=== PATIENT | male | born 1950 | race Caucasian/White ===

== ENCOUNTER → 2017-08-15 | Outpatient (POV) | payer MEDICARE, BC, SELFPAY | PROVIDERS: PCP Family Medicine; Referring Provider Internal Medicine; Visit Provider Specialist | DX: G72.81 Critical illness myopathy (principal) | CPT/HCPCS: 95886; 95911 ==

== ENCOUNTER → 2017-10-21 | Outpatient (CLI) | payer MEDICARE, BC, SELFPAY | PROVIDERS: Visit Provider Internal Medicine | DX: R91.1 Solitary pulmonary nodule (principal) | CPT/HCPCS: 71250 ==

== ENCOUNTER → 2018-01-02 12:33 | Outpatient (POV) | payer MEDICARE, BC, SELFPAY ==
[2018-01-02 13:32] LABS: Basophils % 0.8 % (0.1-2.0); Eosinophils # 0.1 K/mm3 (0.0-0.4); Eosinophils % 1.6 % (0.1-12.0); Hematocrit 46.6 % (42.0-52.0); Hemoglobin 16.4 g/dL (14.1-18.0); Lymphocytes # 0.8 K/mm3 (0.7-4.5); Lymphocytes % 16.3 K/mm3 (10-50); Mean Corpuscular HGB Conc 35.2 g/dL (31.8-35.4); Mean Corpuscular Hemoglobin 33.2 pg (27.0-31.2); Mean Corpuscular Volume 94.3 fl (80-94); Monocytes # 0.4 K/mm3 (0.1-1.0); Monocytes % 8.4 % (1.7-9.3); Neutrophils # 3.5 K/mm3 (1.8-7.8); Neutrophils % 72.9 % (37.0-80.0); Platelet Count 176 K/mm3 (142-424); Red Blood Count 4.94 M/mm3 (4.60-6.20); Red Cell Distribution Width 14.3 % (11.5-17.5); White Blood Count 4.9 K/mm3 (4.8-10.8)
[2018-01-02 13:42] LABS: Alanine Aminotransferase 44 U/L (12-78); Albumin Level 4.6 gm/dL (3.4-5.0); Albumin/Globulin Ratio 1.3 (1.1-1.8); Alkaline Phosphatase 81 U/L (46-116); Anion Gap 9.2 mEq/L (5-15); Aspartate Amino Transferase 21 U/L (15-37); Bilirubin,Total 0.8 mg/dL (0.2-1.0); Blood Urea Nitrogen 23 mg/dL (7-18); Calcium 9.2 mg/dL (8.5-10.1); Carbon Dioxide 28 mmol/L (21.0-32.0); Chloride 97 mmol/L (98-107); Creatinine,Serum 1.62 mg/dL (0.70-1.30); Estimated Glomerular Filt Rate 43 ml/min (>60); GFR (African American) 52 ML/MIN (>60); Globulin 3.6 gm/dl (1.3-3.2); Glucose 110 mg/dL (74-106); Potassium 4.2 mmoL/L (3.5-5.1); Sodium 130 mmol/L (136-145); Total Protein,Serum 8.2 gm/dL (6.4-8.2)
[2018-01-02 14:51] LABS: Total Protein,Urine Random < 6.0 mg/dL (0.0-11.9)
[2018-01-04 15:22] LABS: Albumin, U 32.7 % (.); Alpha-1-Globulin, U 6.5 % (.); Alpha-2-Globulin, U 16.9 % (.); Beta Globulin, U 18.3 % (.); Gamma Globulin, U 25.7 % (.); Protein,Total,Urine 5.9 mg/dL (Not Estab.)
[2018-01-05 12:00] LABS: M-Spike, % Comment: % (Not Observed)
== END ==
PROVIDERS: PCP Family Medicine; Visit Provider Internal Medicine
DX: D47.2 Monoclonal gammopathy (principal)
CPT/HCPCS: 36415; 80053; 84155; 84156; 85025; 88184; 88185

== ENCOUNTER → 2018-01-09 07:30 | Outpatient (CLI) | payer MEDICARE, BC, SELFPAY ==
[2018-01-10 15:21] LABS: Albumin, U 36.1 % (.); Alpha-1-Globulin, U 8.5 % (.); Alpha-2-Globulin, U 19.2 % (.); Beta Globulin, U 23.5 % (.); Gamma Globulin, U 12.7 % (.); M-Spike, % Not Observed % (Not Observed); Prot,24hr calculated <124 mg/24 hr (30-150)
[2018-01-13 14:50] LABS: Protein,Total,Urine <4.0 mg/dL (Not Estab.)
== END ==
PROVIDERS: Visit Provider Internal Medicine
DX: D47.2 Monoclonal gammopathy (principal)
CPT/HCPCS: 84166

== ENCOUNTER → 2018-01-11 08:00 | Outpatient (CLI) | payer MEDICARE, BC, SELFPAY ==
--- NOTE | 2018-01-11 | XR_ITS ---
XR hip LT 2-3V w/pelvis HISTORY: ITS.REASON: HOT SPOT ON BONE SCAN LEFT HIP ORDERING PHYSICIAN: Tim Solorio MD PATIENT AGE: 67 years COMPARISON: 04/24/2014 FINDINGS: There are mild osteoarthritic changes of the left hip. There are some hypertrophic changes of the greater trochanter with a lucency noted at the subcortical region of the greater trochanter. This is of questioned clinical significance. There is some increased activity at this region on bone scan. No fracture or dislocation. IMPRESSION: Decreased density involving the cortical region of the superior aspect of the greater trochanter corresponding to increased activity on the bone scan. Differential diagnosis would include underlying inflammatory or infectious process. Possible trochanteric bursitis. Neoplasm cannot completely be excluded. MRI may be of further value if symptoms warrant. Follow-up is suggested
--- NOTE | 2018-01-11 08:03 | CA_ITS ---
CA echo doppler complete PROCEDURE: INDICATIONS FOR THE TEST: Chest pain COPD Heart Murmur Tobacco Smoking PalpitationsX Fatigue Syncope Edema HypertensionXDiabetes Mellitus Rheumatic Fever SOB SANDHU ObesityXHyperlipidemiaX Family History HD Additional History CAD,CABG MULTIPLE MYELOMA PATIENT INFORMATION HEIGHT: 72 WEIGHT:275 GENDER: Male B/P:128/79 2-D/M-MODE INTERPRETATION: 2-D MEASUREMENTS OBSERVED VALUES IN CMS Right Ventricular Dimension (RVDd) 3.1 Interventricular Septum (Thickness)(IVsd) 1.3 Left Ventricular Internal Dimensions(LVIDd) 5.1 Left Ventricular Posterior Wall (Thickness)(LVPWd) 1.2 Aortic Root 4.0 Aortic Cusp Separation 1.3 Left Atrial Dimensions (LAD) 4.2 2D 1. Left atrium is mildly enlarged, left ventricle is normal size, visually estimated ejection fraction of 50% with moderate hypokinesis involving the basal septum and inferobasal wall. 2. The right atrium and right ventricle are relatively normal size and function 3. The aortic valve is thickened and calcified leaflet continue to display mobility. 4. The mitral and tricuspid valve leaflets are minimally thickened. 5. The pulmonic valve is poorly visualized. 6. No significant pericardial effusion noted. DOPPLER INTERROGATION: Doppler interrogation of the aortic, mitral and tricuspid valve is presence of mild aortic, mild mitral and tricuspid regurgitation, tricuspid regurgitant jet velocity is insufficient for calculation of the right ventricular systolic pressure, grade 1 diastolic dysfunction seen with tissue Doppler evidence of raised left atrial pressure. CONCLUSION: 1. Mildly enlarged left atrium, normal left ventricular size, mild concentric left ventricular hypertrophy, visually estimated ejection fraction 50% with segmental wall motion abnormality described above, grade 1 diastolic dysfunction seen with tissue Doppler evidence of raised left atrial pressure. 2. Thickened and calcified aortic valve without aortic stenosis, there is mild aortic insufficiency. 3. Mild mitral and tricuspid regurgitation 4. No significant pericardial effusion noted.
--- NOTE | 2018-01-11 08:35 | NM_ITS ---
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 There is slight increased activity involving the greater trochanter of the left hip. Slight increased activity involves both pedicles at T12 is of questioned clinical significance and probably not significant. No other significant anomalies are evident. IMPRESSION: 1. Slight increased activity involves the greater trochanter of the left hip. Radiographs show some decrease subcortical density at this area. Underlying inflammatory infectious or even neoplastic process is a consideration. Please correlate as to whether the patient has pain in this region or not. Follow-up radiograph may confirm stability. 2. Otherwise essentially negative total body bone scan.
== END ==
PROVIDERS: Family Provider Family Medicine; PCP Family Medicine; Visit Provider Internal Medicine
DX: D47.2 Monoclonal gammopathy (principal); R06.09 Other forms of dyspnea
CPT/HCPCS: 73502; 78306; 93306

== ENCOUNTER → 2018-03-16 07:16 | Outpatient (CLI) | payer MEDICARE, BC, SELFPAY ==
[2018-03-16 11:12] LABS: Basophils # 0.1 K/mm3 (0-0.2); Basophils % 1.3 % (0.1-2.0); Eosinophils # 0.1 K/mm3 (0.0-0.4); Eosinophils % 1.5 % (0.1-12.0); Hematocrit 43.5 % (42.0-52.0); Hemoglobin 15.5 g/dL (14.1-18.0); Lymphocytes # 0.6 K/mm3 (0.7-4.5); Lymphocytes % 16.5 K/mm3 (10-50); Mean Corpuscular HGB Conc 35.6 g/dL (31.8-35.4); Mean Corpuscular Hemoglobin 33.4 pg (27.0-31.2); Mean Corpuscular Volume 93.8 fl (80-94); Mean Platelet Volume 6.8 fl (7.4-10.4); Monocytes # 0.4 K/mm3 (0.1-1.0); Monocytes % 10.9 % (1.7-9.3); Neutrophils # 2.6 K/mm3 (1.8-7.8); Neutrophils % 69.8 % (37.0-80.0); Platelet Count 183 K/mm3 (142-424); Red Blood Count 4.63 M/mm3 (4.60-6.20); Red Cell Distribution Width 13.8 % (11.5-17.5); White Blood Count 3.7 K/mm3 (4.8-10.8)
[2018-03-16 11:27] LABS: Alanine Aminotransferase 42 U/L (12-78); Albumin Level 4.5 gm/dL (3.4-5.0); Albumin/Globulin Ratio 1.4 (1.1-1.8); Alkaline Phosphatase 77 U/L (46-116); Anion Gap 12.4 mEq/L (5-15); Aspartate Amino Transferase 36 U/L (15-37); Bilirubin,Total 0.9 mg/dL (0.2-1.0); Blood Urea Nitrogen 22 mg/dL (7-18); Calcium 9.5 mg/dL (8.5-10.1); Carbon Dioxide 28 mmol/L (21.0-32.0); Chloride 95 mmol/L (98-107); Creatinine,Serum 1.44 mg/dL (0.70-1.30); Estimated Glomerular Filt Rate 49 ml/min (>60); GFR (African American) 59 ML/MIN (>60); Globulin 3.2 gm/dl (1.3-3.2); Glucose 144 mg/dL (74-106); Potassium 4.4 mmoL/L (3.5-5.1); Sodium 131 mmol/L (136-145); Total Protein,Serum 7.7 gm/dL (6.4-8.2)
[2018-03-17 08:34] LABS: Immunoglobulin A, Qn 82 mg/dL (61-437); Immunoglobulin G, Qn 1346 mg/dL (700-1600)
[2018-03-17 13:01] LABS: Immunoglobulin M, Qn 19 mg/dL (20-172)
[2018-03-17 16:25] LABS: Albumin 4.3 g/dL (2.9-4.4); Alpha-1-Globulin 0.2 g/dL (0.0-0.4); Alpha-2-Globulin 0.7 g/dL (0.4-1.0); Gamma Globulin 1.5 g/dL (0.4-1.8); Protein, Total 7.5 g/dL (6.0-8.5)
== END ==
PROVIDERS: Visit Provider Internal Medicine
DX: D47.2 Monoclonal gammopathy (principal)
CPT/HCPCS: 36415; 80053; 82784; 84165; 85025

== ENCOUNTER → 2018-03-24 07:50 | Outpatient (CLI) | payer MEDICARE, BC, SELFPAY ==
[2018-03-24 08:23] LABS: Basophils % 0.8 % (0.1-2.0); Eosinophils # 0.1 K/mm3 (0.0-0.4); Eosinophils % 2.5 % (0.1-12.0); Hematocrit 46.2 % (42.0-52.0); Hemoglobin 15.8 g/dL (14.1-18.0); Lymphocytes # 0.6 K/mm3 (0.7-4.5); Lymphocytes % 16.3 K/mm3 (10-50); Mean Corpuscular HGB Conc 34.2 g/dL (31.8-35.4); Mean Corpuscular Hemoglobin 32.3 pg (27.0-31.2); Mean Corpuscular Volume 94.4 fl (80-94); Mean Platelet Volume 7.3 fl (7.4-10.4); Monocytes # 0.4 K/mm3 (0.1-1.0); Monocytes % 9.8 % (1.7-9.3); Neutrophils # 2.5 K/mm3 (1.8-7.8); Neutrophils % 70.6 % (37.0-80.0); Platelet Count 164 K/mm3 (142-424); Red Blood Count 4.89 M/mm3 (4.60-6.20); Red Cell Distribution Width 14.1 % (11.5-17.5); White Blood Count 3.6 K/mm3 (4.8-10.8)
[2018-03-24 09:54] LABS: Alanine Aminotransferase 46 U/L (12-78); Albumin Level 4.8 gm/dL (3.4-5.0); Albumin/Globulin Ratio 1.4 (1.1-1.8); Alkaline Phosphatase 85 U/L (46-116); Anion Gap 10.4 mEq/L (5-15); Aspartate Amino Transferase 28 U/L (15-37); Bilirubin,Total 0.9 mg/dL (0.2-1.0); Blood Urea Nitrogen 16 mg/dL (7-18); Calcium 9.8 mg/dL (8.5-10.1); Carbon Dioxide 30 mmol/L (21.0-32.0); Chloride 95 mmol/L (98-107); Estimated Glomerular Filt Rate 55 ml/min (>60); GFR (African American) 67 ML/MIN (>60); Globulin 3.5 gm/dl (1.3-3.2); Glucose 135 mg/dL (74-106); Potassium 4.4 mmoL/L (3.5-5.1); Sodium 131 mmol/L (136-145); Total Protein,Serum 8.3 gm/dL (6.4-8.2)
[2018-03-25 07:15] LABS: Iron 105 ug/dL (38-169); UIBC 172 ug/dL (111-343)
[2018-03-25 08:22] LABS: Immunoglobulin A, Qn 93 mg/dL (61-437); Immunoglobulin G, Qn 1305 mg/dL (700-1600)
[2018-03-25 19:41] LABS: Immunoglobulin M, Qn 19 mg/dL (20-172); Iron Saturation 38 % (15-55)
== END ==
PROVIDERS: Visit Provider Internal Medicine
DX: C90.00 Multiple myeloma not having achieved remission (principal)
CPT/HCPCS: 36415; 80053; 82784; 83550; 85025

== ENCOUNTER → 2018-03-27 06:58 | Outpatient (CLI) | payer MEDICARE, BC, SELFPAY | PROVIDERS: Visit Provider Internal Medicine | DX: C90.00 Multiple myeloma not having achieved remission (principal) | CPT/HCPCS: 84156 ==

== ENCOUNTER → 2018-10-05 07:12 | Outpatient (CLI) | payer MEDICARE, BC, SELFPAY ==
[2018-10-05 08:00] LABS: Basophils # 0.1 K/mm3 (0-0.2); Basophils % 1.5 % (0.1-2.0); Eosinophils # 0.1 K/mm3 (0.0-0.4); Eosinophils % 2.8 % (0.1-12.0); Hematocrit 44.7 % (42.0-52.0); Hemoglobin 15.4 g/dL (14.1-18.0); Lymphocytes # 0.6 K/mm3 (0.7-4.5); Lymphocytes % 19.1 % (10-50); Mean Corpuscular HGB Conc 34.5 g/dL (31.8-35.4); Mean Corpuscular Hemoglobin 33.6 pg (27.0-31.2); Mean Corpuscular Volume 97.5 fl (80-94); Mean Platelet Volume 6.9 fl (7.4-10.4); Monocytes # 0.3 K/mm3 (0.1-1.0); Monocytes % 8.6 % (1.7-9.3); Neutrophils # 2.1 K/mm3 (1.8-7.8); Platelet Count 164 K/mm3 (142-424); Red Blood Count 4.59 M/mm3 (4.60-6.20); Red Cell Distribution Width 14.8 % (11.5-17.5); White Blood Count 3.2 K/mm3 (4.8-10.8)
[2018-10-05 09:01] LABS: Anion Gap 10.2 mEq/L (5-15); Blood Urea Nitrogen 15 mg/dL (7-18); Calcium 9.2 mg/dL (8.5-10.1); Carbon Dioxide 30 mmol/L (21.0-32.0); Chloride 97 mmol/L (98-107); Creatinine,Serum 1.47 mg/dL (0.70-1.30); Estimated Glomerular Filt Rate 48 ml/min (>60); GFR (African American) 58 ML/MIN (>60); Glucose 144 mg/dL (74-106); Potassium 4.2 mmoL/L (3.5-5.1); Sodium 133 mmol/L (136-145)
[2018-10-06 15:17] LABS: Albumin 4.2 g/dL (2.9-4.4); Alpha-1-Globulin 0.2 g/dL (0.0-0.4); Alpha-2-Globulin 0.6 g/dL (0.4-1.0); Gamma Globulin 1.6 g/dL (0.4-1.8); Protein, Total 7.5 g/dL (6.0-8.5)
[2018-10-06 16:40] LABS: Immunoglobulin A, Qn 78 mg/dL (61-437); Immunoglobulin G, Qn 1461 mg/dL (700-1600)
[2018-10-06 17:11] LABS: Immunoglobulin M, Qn 21 mg/dL (20-172)
== END ==
PROVIDERS: PCP Family Medicine; Visit Provider Nurse Practitioner
DX: D47.2 Monoclonal gammopathy (principal)
CPT/HCPCS: 36415; 80048; 82784; 84155; 84165; 85025; 86334

== ENCOUNTER → 2018-12-12 15:47 | Outpatient (CLI) | payer MEDICARE, BC, SELFPAY ==
[2018-12-12 16:38] LABS: Eosinophils # 0.1 K/mm3 (0.0-0.4); Eosinophils % 1.7 % (0.1-12.0); Hematocrit 41.9 % (42.0-52.0); Hemoglobin 14.5 g/dL (14.1-18.0); Lymphocytes # 0.8 K/mm3 (0.7-4.5); Lymphocytes % 17.4 % (10-50); Mean Corpuscular HGB Conc 34.6 g/dL (31.8-35.4); Mean Corpuscular Hemoglobin 32.9 pg (27.0-31.2); Mean Corpuscular Volume 95.3 fl (80-94); Mean Platelet Volume 6.3 fl (7.4-10.4); Monocytes # 0.4 K/mm3 (0.1-1.0); Monocytes % 8.7 % (1.7-9.3); Neutrophils # 3.3 K/mm3 (1.8-7.8); Neutrophils % 71.3 % (37.0-80.0); Platelet Count 188 K/mm3 (142-424); Red Cell Distribution Width 14.4 % (11.5-17.5); White Blood Count 4.6 K/mm3 (4.8-10.8)
[2018-12-12 17:55] LABS: Erythrocyte Sedimentation Rate 8 mm/hr (0-20)
[2018-12-12 18:18] LABS: Alanine Aminotransferase 36 U/L (12-78); Albumin Level 4.4 gm/dL (3.4-5.0); Alkaline Phosphatase 76 U/L (46-116); Anion Gap 13.2 mEq/L (5-15); Aspartate Amino Transferase 26 U/L (15-37); Bilirubin,Direct 0.2 mg/dL (0.0-0.2); Bilirubin,Indirect 0.5 mg/dL (0.0-0.9); Bilirubin,Total 0.7 mg/dL (0.2-1.0); Blood Urea Nitrogen 17 mg/dL (7-18); Calcium 9.4 mg/dL (8.5-10.1); Carbon Dioxide 30 mmol/L (21.0-32.0); Chloride 94 mmol/L (98-107); Creatinine,Serum 1.82 mg/dL (0.70-1.30); Estimated Glomerular Filt Rate 37 ml/min (>60); Free T4 (Free Thyroxine) 0.89 ng/dl (0.76-1.46); GFR (African American) 45 ML/MIN (>60); Glucose 109 mg/dL (74-106); Potassium 4.2 mmoL/L (3.5-5.1); Sodium 133 mmol/L (136-145); Thyroid Stimulating Hormone 3.47 uIU/ml (0.358-3.740); Total Protein,Serum 7.8 gm/dL (6.4-8.2)
[2018-12-12 20:54] LABS: C-Reactive Protein < 0.2 mg/L (0.0-0.9)
== END ==
PROVIDERS: Visit Provider Internal Medicine
DX: L60.8 Other nail disorders (principal); L81.9 Disorder of pigmentation, unspecified; L98.9 Disorder of the skin and subcutaneous tissue, unspecified; E66.9 Obesity, unspecified; G47.33 Obstructive sleep apnea (adult) (pediatric); I11.9 Hypertensive heart disease without heart failure; I25.10 Atherosclerotic heart disease of native coronary artery without angina pectoris; R06.09 Other forms of dyspnea; R40.0 Somnolence; R94.31 Abnormal electrocardiogram [ECG] [EKG]; E78.49 Other hyperlipidemia
CPT/HCPCS: 36415; 80048; 80076; 84439; 84443; 85025; 85651; 86140

== ENCOUNTER → 2018-12-19 07:38 | Outpatient (CLI) | payer MEDICARE, BC, SELFPAY ==
--- NOTE | 2018-12-19 07:42 | US_ITS ---
US abdomen complete HISTORY: Discolored toes. ITS.REASON: r/o AAA ORDERING PHYSICIAN: Shawn Yates MD PATIENT AGE: 68 years COMPARISON: CT chest July 2017 & Showed normal caliber of aorta down to the level of the kidneys FINDINGS: LIVER:No focal liver lesions demonstrated. Homogeneous echogenicity. No intrahepatic biliary ductal dilatation evident. Portal vein satisfactory size and direction flow. GALLBLADDER:. Surgically absent. Common duct normal diameter with No biliary ductal dilatation .. PANCREAS:Unremarkable. No obvious mass or abnormal fluid collection. No ductal dilatatio KIDNEYS appear normal size bilaterally. No hydronephrosis nor mass. Cortex well-maintained.: RIGHT kidney 10.65 CM length with LEFT kidney 10.6 cm length;. . AORTA: No significant aneurysm dilatation. Overall normal caliber. Proximally measuring 1.8 cm & tapers slightly as it continues distally. Suggestion mild diffuse atheromatous plaque throughout. . The origin of iliac arteries appear satisfactory no significant dilatation here. Mild atheromatous plaque appreciable SPLEEN:. Slight Enlarged. Nearly 16 cm in length No free fluid in the abdomen or pelvis IMPRESSION: No aneurysmal dilatation aorta. Images suggest mild atheromatous plaque throughout lower aorta Liver, pancreas unremarkable. Kidneys satisfactory. Splenomegaly. Cholecystectomy. No biliary ductal dilatation
== END ==
PROVIDERS: PCP Family Medicine; Visit Provider Internal Medicine
DX: E78.5 Hyperlipidemia, unspecified; I11.9 Hypertensive heart disease without heart failure; I25.10 Atherosclerotic heart disease of native coronary artery without angina pectoris; L81.9 Disorder of pigmentation, unspecified
CPT/HCPCS: 76700

== ENCOUNTER → 2018-12-29 07:48 | Outpatient (CLI) | payer MEDICARE, BC, SELFPAY ==
--- NOTE | 2018-12-29 | US_ITS ---
US Arterial Ankle Brachial Ind History: Claudication, rest pain, ORDERING PHYSICIAN: Juliet Gonzalez MD PATIENT AGE: 68 years TECHNIQUE: Segmental pressures obtained of both right and left leg. These are compared to brachial blood pressure to yield index at each level sampled including summary SARAY. The data sheets from the procedure are available in PACS FINDINGS Rest study only performed today No prior studies available for comparison. Blood pressures reported are in millimeters mercury. RIGHT LEG SARAY = noncompressible arteries in the ankle. RIGHT LEG TBI=0.98 Brachial BP: 106 Thigh BP: 143 Calf BP: 110 Ankle PT: >254 Ankle DP : Noncompressible Digit =118 LEFT LEG SARAY = 1.42 LEFT LEG TBI= 1.18 Brachial BPD: 120 Thigh BP: 125 Calf BP: 206 Ankle PT:170 Ankle DP: 182 Digit = 142 Pulses and waveforms: Diminished waveforms and ankle, normal pulses IMPRESSION: 1. Unable to calculate right SARAY due to noncompressible ankle arteries 2. Left ABIs slightly elevated at 1.4 consistent with hardening of the arteries. 3. TBI's are normal bilaterally
--- NOTE | 2018-12-29 07:50 | CT_ITS ---
CT head/brain wo con HISTORY: ITS.REASON: CHRONIC INTRACTABLE HEADACHE ORDERING PHYSICIAN: Juliet Gonzalez MD PATIENT AGE: 68 years COMPARISON: None TECHNIQUE: Axial images obtained without contrast. Brain and bone windows reviewed. All CT scans at the facility use one or more dose reduction, viz: automated exposure control, ma/kV adjustment per patient size (including targeted exams where dose is matched to indication, i.e. head), or iterative reconstruction technique. FINDINGS: No midline shift, mass effect, intracranial hemorrhage, hydrocephalus, or extra-axial fluid collection is evident. There is generalized atrophy. Focal cortical atrophy noted in the right right lower lobe medially and posteriorly. Mild prominence of the supravermian cistern on the right nonspecific. The calvarium has an unremarkable appearance. No mastoid effusion. Retention cysts are present in the floor both maxillary sinuses incompletely visualized. IMPRESSION: 1. No acute intracranial findings. 2. Generalized atrophy along with focal cortical atrophy in the right parietal region.
== END ==
PROVIDERS: PCP Emergency Medicine; Visit Provider Emergency Medicine
DX: I73.00 Raynaud's syndrome without gangrene (principal); R51 Headache
CPT/HCPCS: 70450; 93922

== ENCOUNTER → 2019-04-06 07:02 | Outpatient (CLI) | payer MEDICARE, BC, SELFPAY ==
[2019-04-06 07:30] LABS: Basophils % 1.5 % (0.1-2.0); Eosinophils # 0.1 K/mm3 (0.0-0.4); Eosinophils % 2.2 % (0.1-12.0); Hemoglobin 14.4 g/dL (14.1-18.0); Lymphocytes # 0.6 K/mm3 (0.7-4.5); Lymphocytes % 20.8 % (10-50); Mean Corpuscular HGB Conc 34.3 g/dL (31.8-35.4); Mean Corpuscular Hemoglobin 30.7 pg (27.0-31.2); Mean Corpuscular Volume 89.6 fl (80-94); Mean Platelet Volume 6.6 fl (7.4-10.4); Monocytes # 0.3 K/mm3 (0.1-1.0); Monocytes % 11.4 % (1.7-9.3); Neutrophils # 1.8 K/mm3 (1.8-7.8); Neutrophils % 64.1 % (37.0-80.0); Platelet Count 159 K/mm3 (142-424); Red Blood Count 4.69 M/mm3 (4.60-6.20); Red Cell Distribution Width 13.8 % (11.5-17.5); White Blood Count 2.8 K/mm3 (4.8-10.8)
[2019-04-06 12:37] LABS: Alanine Aminotransferase 38 U/L (12-78); Albumin/Globulin Ratio 1.2 (1.1-1.8); Alkaline Phosphatase 88 U/L (46-116); Anion Gap 12.4 mEq/L (5-15); Aspartate Amino Transferase 26 U/L (15-37); Bilirubin,Total 0.6 mg/dL (0.2-1.0); Blood Urea Nitrogen 16 mg/dL (7-18); Calcium 9.1 mg/dL (8.5-10.1); Carbon Dioxide 31 mmol/L (21.0-32.0); Chloride 96 mmol/L (98-107); Creatinine,Serum 1.33 mg/dL (0.70-1.30); Estimated Glomerular Filt Rate 53 ml/min (>60); GFR (African American) 65 ML/MIN (>60); Globulin 3.3 gm/dl (1.3-3.2); Glucose 129 mg/dL (74-106); Potassium 4.4 mmoL/L (3.5-5.1); Sodium 135 mmol/L (136-145); Total Protein,Serum 7.3 gm/dL (6.4-8.2)
[2019-04-06 13:03] LABS: Bilirubin,Direct 0.1 mg/dL (0.0-0.2); Chol/HDL Ratio 3.6 (1-3.5); Cholesterol 100 mg/dL (140-200); HDL Cholesterol 28 mg/dL (27-67); LDL Cholesterol 38 mg/dL (0-130); Triglycerides 170 mg/dL (30-200); VLDL Cholesterol 34 mg/dL (0-40)
[2019-04-07 21:06] LABS: Free Kappa Lt Chains 46.6 mg/L (3.3-19.4); Free Lambda Lt Chains 10.8 mg/L (5.7-26.3)
[2019-04-09 11:14] LABS: Immunoglobulin A, Qn 79 mg/dL (61-437); Immunoglobulin G, Qn 1590 mg/dL (700-1600)
[2019-04-09 13:22] LABS: Albumin 4.3 g/dL (2.9-4.4); Alpha-1-Globulin 0.3 g/dL (0.0-0.4); Alpha-2-Globulin 0.7 g/dL (0.4-1.0); Gamma Globulin 1.6 g/dL (0.4-1.8); Protein, Total 7.7 g/dL (6.0-8.5)
[2019-04-10 19:52] LABS: Immunoglobulin M, Qn 22 mg/dL (20-172)
== END ==
PROVIDERS: Urology; Visit Provider Internal Medicine Medical Oncology
DX: D47.2 Monoclonal gammopathy (principal); Z79.899 Other long term (current) drug therapy
CPT/HCPCS: 36415; 80053; 80061; 80076; 82248; 82784; 83883; 84155; 84165; 85025; 86334

== ENCOUNTER → 2019-05-21 11:05 | Outpatient (CLI) | payer MEDICARE, BC, SELFPAY ==
--- NOTE | 2019-05-21 11:09 | XR_ITS ---
XR hip LT 2-3V w/pelvis HISTORY: ITS.REASON: CARLOS HIP PAIN ORDERING PHYSICIAN: Juliet Justice MD PATIENT AGE: 68 years COMPARISON: None FINDINGS: Bone density, hip joint space and alignment appears normal. There is a minimal anterior medial subcapital spur. There is no acute fracture. There are pelvic phleboliths. IMPRESSION: No acute process. Minimal subcapital spur.
--- NOTE | 2019-05-21 11:09 | XR_ITS ---
XR hip RT 2-3V w/pelvis HISTORY: ITS.REASON: CARLOS HIP PAIN ORDERING PHYSICIAN: Juliet Justice MD PATIENT AGE: 68 years COMPARISON: None FINDINGS: Bone density, joint space and alignment appear normal. There is a very small anterior medial subcapital spurring. There is no acute fracture. There are some vascular calcified plaques. IMPRESSION: No acute process. Very small subcapital spur.
== END ==
PROVIDERS: PCP Family Medicine; Visit Provider Emergency Medicine
DX: M25.552 Pain in left hip (principal); M25.551 Pain in right hip
CPT/HCPCS: 73502

== ENCOUNTER → 2019-05-28 14:45 | Outpatient (CLI) | payer MEDICARE, BC, SELFPAY ==
--- NOTE | 2019-05-28 14:48 | MR_ITS ---
MR lumbar spine wo con, MR 3-d myelogram/MRCP HISTORY: Bilateral hip pain but LT hip is worse. LBP. Pain, numbness, and tingling down lt leg. [id number]. No trauma. ITS.REASON: PAIN IN RT AND LT HIP ORDERING PHYSICIAN: Juliet Justice MD PATIENT AGE: 68 years Comparison: None TECHNIQUE: Standard multiplanar multiecho sequences are performed without contrast. 3-D MIP and myelographic images are also rendered and reviewed FINDINGS: The spinal cord ends at the T12 level. T12-L1: Mild degenerative disc disease. Type I endplate changes anteriorly. L1-L2: Unremarkable. L2-L3: Unremarkable. L3-L4: Minimal bulging disc slightly eccentric toward the left along with facet and ligamentum flavum hypertrophy. There is mild left lateral recess and foraminal narrowing. L4-L5: There is minimal anterolisthesis of L4 of approximately 3 mm. There is concentric bulging disc along with moderate to severe facet and ligamentum flavum hypertrophy with resultant canal stenosis and severe bilateral lateral recess and foraminal narrowing. The foraminal narrowing is greater on the left. There is some bone marrow edema within the pedicle on the left at L5. L5-S1: Mild degenerative disc disease. IMPRESSION: 1. Mild multilevel lumbar spondylosis as detailed above. Please see above for detailed description at each level. 2. Mild anterolisthesis of L4 on L5 with bulging disc along with moderate to severe facet and ligamentum flavum hypertrophy with resultant canal stenosis and severe bilateral lateral recess and foraminal narrowing. The foraminal narrowing is greater on the left.
== END ==
PROVIDERS: PCP Family Medicine; Visit Provider Emergency Medicine
DX: M25.551 Pain in right hip (principal); M25.552 Pain in left hip
CPT/HCPCS: 72148; 76376

== ENCOUNTER → 2019-07-03 09:44 | Outpatient (CLI) | payer MEDICARE, BC, SELFPAY ==
[2019-07-03 10:11] LABS: Basophils % 0.9 % (0.1-2.0); Eosinophils # 0.1 K/mm3 (0.0-0.4); Eosinophils % 1.9 % (0.1-12.0); Hematocrit 42.1 % (42.0-52.0); Hemoglobin 14.5 g/dL (14.1-18.0); Lymphocytes # 0.7 K/mm3 (0.7-4.5); Lymphocytes % 25.6 % (10-50); Mean Corpuscular HGB Conc 34.4 g/dL (31.8-35.4); Mean Corpuscular Hemoglobin 33.1 pg (27.0-31.2); Mean Corpuscular Volume 96.1 fl (80-94); Mean Platelet Volume 7.2 fl (7.4-10.4); Monocytes # 0.4 K/mm3 (0.1-1.0); Monocytes % 13.3 % (1.7-9.3); Neutrophils # 1.6 K/mm3 (1.8-7.8); Neutrophils % 58.3 % (37.0-80.0); Platelet Count 162 K/mm3 (142-424); Red Blood Count 4.38 M/mm3 (4.60-6.20); Red Cell Distribution Width 14.4 % (11.5-17.5); White Blood Count 2.7 K/mm3 (4.8-10.8)
== END ==
PROVIDERS: Visit Provider Physician Assistant
DX: E66.9 Obesity, unspecified (principal); G47.33 Obstructive sleep apnea (adult) (pediatric); I11.9 Hypertensive heart disease without heart failure; I25.10 Atherosclerotic heart disease of native coronary artery without angina pectoris; I73.9 Peripheral vascular disease, unspecified; M79.604 Pain in right leg; M79.605 Pain in left leg; R06.09 Other forms of dyspnea; R40.0 Somnolence; R94.31 Abnormal electrocardiogram [ECG] [EKG]; E78.49 Other hyperlipidemia
CPT/HCPCS: 36415; 85025

== ENCOUNTER 2019-08-03 15:30 | Outpatient (RCR) | payer MEDICARE, BC, SELFPAY | END 2019-08-03 15:35 | disposition home or self-care (01) | LOC: PT 15:30 | PROVIDERS: PCP Family Medicine; Visit Provider Physician Assistant Surgical | DX: M51.36 Other intervertebral disc degeneration, lumbar region (principal) | CPT/HCPCS: 97010; 97014; 97035; 97110; 97163; G0283 ==

== ENCOUNTER → 2019-10-02 13:28 | Outpatient (CLI) | payer MEDICARE, BC, SELFPAY ==
[2019-10-02 14:14] LABS: Basophils % 0.9 % (0.1-2.0); Eosinophils # 0.1 K/mm3 (0.0-0.4); Eosinophils % 2.2 % (0.1-12.0); Hematocrit 41.6 % (42.0-52.0); Hemoglobin 14.4 g/dL (14.1-18.0); Lymphocytes # 0.6 K/mm3 (0.7-4.5); Lymphocytes % 20.4 % (10-50); Mean Corpuscular HGB Conc 34.7 g/dL (31.8-35.4); Mean Corpuscular Hemoglobin 33.5 pg (27.0-31.2); Mean Corpuscular Volume 96.6 fl (80-94); Mean Platelet Volume 6.9 fl (7.4-10.4); Monocytes # 0.4 K/mm3 (0.1-1.0); Monocytes % 12.3 % (1.7-9.3); Neutrophils % 64.1 % (37.0-80.0); Platelet Count 164 K/mm3 (142-424); Red Cell Distribution Width 13.8 % (11.5-17.5); White Blood Count 3.1 K/mm3 (4.8-10.8)
[2019-10-02 14:17] LABS: Alanine Aminotransferase 32 U/L (12-78); Albumin Level 4.1 gm/dL (3.4-5.0); Albumin/Globulin Ratio 1.2 (1.1-1.8); Alkaline Phosphatase 72 U/L (46-116); Anion Gap 10.1 mEq/L (5-15); Aspartate Amino Transferase 25 U/L (15-37); Bilirubin,Total 0.6 mg/dL (0.2-1.0); Blood Urea Nitrogen 20 mg/dL (7-18); Calcium 8.9 mg/dL (8.5-10.1); Carbon Dioxide 31 mmol/L (21.0-32.0); Chloride 98 mmol/L (98-107); Creatinine,Serum 1.57 mg/dL (0.70-1.30); Estimated Glomerular Filt Rate 44 ml/min (>60); GFR (African American) 53 ML/MIN (>60); Globulin 3.4 gm/dl (1.3-3.2); Glucose 160 mg/dL (74-106); Potassium 4.1 mmoL/L (3.5-5.1); Sodium 135 mmol/L (136-145); Total Protein,Serum 7.5 gm/dL (6.4-8.2)
[2019-10-03 14:10] LABS: Albumin 4.1 g/dL (2.9-4.4); Alpha-1-Globulin 0.2 g/dL (0.0-0.4); Alpha-2-Globulin 0.7 g/dL (0.4-1.0); Gamma Globulin 1.6 g/dL (0.4-1.8); Protein, Total 7.5 g/dL (6.0-8.5)
[2019-10-03 16:34] LABS: Free Kappa Lt Chains 36.1 mg/L (3.3-19.4); Free Lambda Lt Chains 9.9 mg/L (5.7-26.3)
== END ==
PROVIDERS: Visit Provider Internal Medicine Hematology & Oncology
DX: Z79.899 Other long term (current) drug therapy (principal)
CPT/HCPCS: 36415; 80053; 83883; 84155; 84165; 85025

== ENCOUNTER → 2019-10-12 10:44 | Outpatient (CLI) | payer MEDICARE, BC, SELFPAY ==
[2019-10-13 09:16] LABS: Immunoglobulin A, Qn 68 mg/dL (61-437); Immunoglobulin G, Qn 1492 mg/dL (700-1600)
[2019-10-13 10:19] LABS: Immunoglobulin M, Qn 18 mg/dL (20-172)
== END ==
PROVIDERS: Visit Provider Internal Medicine Medical Oncology
DX: D47.2 Monoclonal gammopathy (principal)
CPT/HCPCS: 36415; 82784

== ENCOUNTER → 2019-10-22 07:02 | Outpatient (CLI) | payer MEDICARE, BC, SELFPAY ==
[2019-10-22 09:14] LABS: Alanine Aminotransferase 26 U/L (12-78); Albumin Level 4.2 gm/dL (3.4-5.0); Albumin/Globulin Ratio 1.2 (1.1-1.8); Alkaline Phosphatase 88 U/L (46-116); Anion Gap 9.5 mEq/L (5-15); Aspartate Amino Transferase 18 U/L (15-37); Bilirubin,Total 0.8 mg/dL (0.2-1.0); Blood Urea Nitrogen 17 mg/dL (7-18); Calcium 8.9 mg/dL (8.5-10.1); Carbon Dioxide 33 mmol/L (21.0-32.0); Chloride 99 mmol/L (98-107); Chol/HDL Ratio 3.2 (1-3.5); Cholesterol 90 mg/dL (140-200); Creatinine,Serum 1.47 mg/dL (0.70-1.30); Estimated Glomerular Filt Rate 47 ml/min (>60); GFR (African American) 57 ML/MIN (>60); Globulin 3.4 gm/dl (1.3-3.2); Glucose 124 mg/dL (74-106); HDL Cholesterol 28 mg/dL (27-67); LDL Cholesterol 40 mg/dL (0-130); Potassium 4.5 mmoL/L (3.5-5.1); Prostate Specific Ag Screen 4.3 ng/mL (0.0-4.0); Sodium 137 mmol/L (136-145); Thyroid Stimulating Hormone 5.56 uIU/ml (0.358-3.740); Total Protein,Serum 7.6 gm/dL (6.4-8.2); Triglycerides 112 mg/dL (30-200); VLDL Cholesterol 22 mg/dL (0-40)
[2019-10-22 10:48] LABS: Hemoglobin A1C 5.5 % (0.0-7.0)
== END ==
PROVIDERS: Visit Provider Family Medicine
DX: E78.5 Hyperlipidemia, unspecified (principal); E03.9 Hypothyroidism, unspecified; G62.9 Polyneuropathy, unspecified; Z86.79 Personal history of other diseases of the circulatory system; Z12.5 Encounter for screening for malignant neoplasm of prostate; Z79.899 Other long term (current) drug therapy
CPT/HCPCS: 36415; 80053; 80061; 83036; 84443; G0103

== ENCOUNTER → 2020-01-01 14:25 | Outpatient (CLI) | payer MEDICARE, BC, SELFPAY ==
--- NOTE | 2020-01-01 14:29 | XR_ITS ---
PROCEDURE: XR FOOT WT BEARING RT 3V CLINICAL INDICATION: pain COMPARISON: No exams were available for comparison FINDINGS: No fracture or dislocation. No lytic or blastic change. There is normal mineralization. Prominent osteoarthritic changes are present at the 1st MTP joint with spurring. There is generalized vascular calcification. Osteophyte is present at the anterior distal tibia. Mild degenerative changes of the tarsal bones. Other findings:None. 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
--- NOTE | 2020-01-01 14:29 | XR_ITS ---
PROCEDURE: XR FOOT WT BEARING LT 3V CLINICAL INDICATION: pain COMPARISON: No exams were available for comparison FINDINGS: No fracture or dislocation. No lytic or blastic change. There is normal mineralization. Mild osteoarthritic changes of the 1st MTP joint. Pes planus. Osteoarthritis of the tail 0 tibial joint anteriorly. Osteoarthritis of the navicular cuneiform joint Other findings:None. IMPRESSION: Osteoarthritic change with mild pes planus Dictated by: Hai Orellana MD 01/01/2020 17:32 Electronically signed by Hai Orellana MD in [place] 01/01/2020 17:32
== END ==
PROVIDERS: PCP Family Medicine; Visit Provider Podiatrist
DX: M79.672 Pain in left foot (principal); M79.671 Pain in right foot
CPT/HCPCS: 73630

== ENCOUNTER → 2020-04-02 07:27 | Outpatient (CLI) | payer MEDICARE, BC, SELFPAY ==
[2020-04-02 07:55] LABS: Basophils # 0.1 K/mm3 (0-0.2); Basophils % 2.2 % (0.1-2.0); Eosinophils # 0.1 K/mm3 (0.0-0.4); Eosinophils % 2.4 % (0.1-12.0); Hematocrit 43.3 % (42.0-52.0); Hemoglobin 15.8 g/dL (14.1-18.0); Lymphocytes # 0.6 K/mm3 (0.7-4.5); Lymphocytes % 19.2 % (10-50); Mean Corpuscular HGB Conc 36.4 g/dL (31.8-35.4); Mean Corpuscular Hemoglobin 34.4 pg (27.0-31.2); Mean Corpuscular Volume 94.4 fl (80-94); Mean Platelet Volume 7.5 fl (7.4-10.4); Monocytes # 0.3 K/mm3 (0.1-1.0); Monocytes % 11.3 % (1.7-9.3); Neutrophils # 1.9 K/mm3 (1.8-7.8); Neutrophils % 64.9 % (37.0-80.0); Platelet Count 152 K/mm3 (142-424); Red Blood Count 4.59 M/mm3 (4.60-6.20); Red Cell Distribution Width 14.8 % (11.5-17.5); White Blood Count 2.9 K/mm3 (4.8-10.8)
[2020-04-02 08:58] LABS: Chloride 94 mmol/L (98-107)
[2020-04-02 08:59] LABS: Potassium 4.5 mmoL/L (3.5-5.1); Sodium 133 mmol/L (136-145)
[2020-04-02 09:01] LABS: Alanine Aminotransferase 42 U/L (12-78); Alkaline Phosphatase 70 U/L (38-126); Aspartate Amino Transferase 48 U/L (17-59); Blood Urea Nitrogen 20 mg/dl (9-20); Estimated Glomerular Filt Rate 55 ml/min (>60); GFR (African American) 66 ML/MIN (>60)
[2020-04-02 09:02] LABS: Albumin Level 4.7 g/dl (3.5-5.0); Albumin/Globulin Ratio 1.5 (1.1-1.8); Anion Gap 9.5 mEq/L (5-15); Calcium 9.4 mg/dl (8.4-10.2); Carbon Dioxide 34 mmol/L (22.0-30.0); Globulin 3.2 g/dL (1.3-3.2); Glucose 173 mg/dl (74-100); Total Protein,Serum 7.9 g/dl (6.3-8.2)
== END ==
PROVIDERS: Visit Provider Internal Medicine Medical Oncology
DX: D72.819 Decreased white blood cell count, unspecified (principal)
CPT/HCPCS: 36415; 80053; 85025

== ENCOUNTER → 2020-04-22 07:07 | Outpatient (CLI) | payer MEDICARE, BC, SELFPAY ==
[2020-04-22 07:43] LABS: Basophils % 1.3 % (0.1-2.0); Eosinophils # 0.1 K/mm3 (0.0-0.4); Eosinophils % 2.4 % (0.1-12.0); Hematocrit 42.6 % (42.0-52.0); Hemoglobin 15.6 g/dL (14.1-18.0); Lymphocytes # 0.7 K/mm3 (0.7-4.5); Lymphocytes % 27.1 % (10-50); Mean Corpuscular HGB Conc 36.5 g/dL (31.8-35.4); Mean Corpuscular Hemoglobin 34.8 pg (27.0-31.2); Mean Corpuscular Volume 95.4 fl (80-94); Mean Platelet Volume 7.9 fl (7.4-10.4); Monocytes # 0.3 K/mm3 (0.1-1.0); Monocytes % 11.7 % (1.7-9.3); Neutrophils # 1.5 K/mm3 (1.8-7.8); Neutrophils % 57.5 % (37.0-80.0); Platelet Count 151 K/mm3 (142-424); Red Blood Count 4.47 M/mm3 (4.60-6.20); Red Cell Distribution Width 14.3 % (11.5-17.5); White Blood Count 2.5 K/mm3 (4.8-10.8)
[2020-04-22 08:34] LABS: Chloride 94 mmol/L (98-107); Sodium 134 mmol/L (136-145)
[2020-04-22 08:35] LABS: Potassium 4.5 mmoL/L (3.5-5.1)
[2020-04-22 08:37] LABS: Alanine Aminotransferase 35 U/L (12-78); Albumin Level 4.6 g/dl (3.5-5.0); Albumin/Globulin Ratio 1.5 (1.1-1.8); Alkaline Phosphatase 64 U/L (38-126); Anion Gap 10.5 mEq/L (5-15); Aspartate Amino Transferase 43 U/L (17-59); Bilirubin,Total 0.8 mg/dl (0.2-1.3); Blood Urea Nitrogen 16 mg/dl (9-20); Calcium 9.4 mg/dl (8.4-10.2); Carbon Dioxide 34 mmol/L (22.0-30.0); Estimated Glomerular Filt Rate 60 ml/min (>60); GFR (African American) 73 ML/MIN (>60); Glucose 129 mg/dl (74-100); Total Protein,Serum 7.6 g/dl (6.3-8.2)
[2020-04-22 09:49] LABS: Chol/HDL Ratio 3.3 (1-3.5); Cholesterol 109 mg/dl (140-200); HDL Cholesterol 33 mg/dl (40-60); Triglycerides 160 mg/dl (30-150); VLDL Cholesterol 32 mg/dL (0-40)
[2020-04-22 10:00] LABS: Direct LDL Cholesterol 58.42 mg/dL (100-129)
[2020-04-22 10:06] LABS: T4 (Thyroxine) 7.5 ug/dl (5.53-11.0)
[2020-04-22 10:20] LABS: Prostate Specific Ag Screen 3.5 ng/ml (0.0-4.0); Thyroid Stimulating Hormone 6.42 uIU/mL (0.465-4.68)
[2020-04-23 15:10] LABS: Immunoglobulin A, Qn 71 mg/dL (61-437); Immunoglobulin G, Qn 1717 mg/dL (603-1613)
[2020-04-23 16:18] LABS: Albumin 4.1 g/dL (2.9-4.4); Alpha-1-Globulin 0.2 g/dL (0.0-0.4); Alpha-2-Globulin 0.7 g/dL (0.4-1.0); Gamma Globulin 1.7 g/dL (0.4-1.8); Protein, Total 7.6 g/dL (6.0-8.5)
[2020-04-23 17:09] LABS: Free Kappa Lt Chains 54.6 mg/L (3.3-19.4); Free Lambda Lt Chains 7.9 mg/L (5.7-26.3)
[2020-04-24 01:40] LABS: Immunoglobulin M, Qn 18 mg/dL (20-172)
== END ==
PROVIDERS: PCP Family Medicine; Visit Provider Internal Medicine Medical Oncology
DX: E03.9 Hypothyroidism, unspecified (principal); Z12.5 Encounter for screening for malignant neoplasm of prostate; I10 Essential (primary) hypertension; Z79.891 Long term (current) use of opiate analgesic; E78.5 Hyperlipidemia, unspecified
CPT/HCPCS: 36415; 80053; 80061; 82784; 83883; 84155; 84165; 84436; 84443; 85025; 86334; G0103

== ENCOUNTER 2020-07-02 14:15 | Observation (INO) | payer MEDICARE, BC, SELFPAY ==
[2020-07-02] VITALS (10 sets, daily range): BP systolic 107–134; BP diastolic 51–90; PULSE 60–88; RESP 15–18; TEMP 36.7–37.1; O2SAT 95–100; BMI 47.7; BMI 34.2
--- NOTE | 2020-07-02 14:20 | CA_ITS ---
APPROVED REPORT EXAM: Comprehensive 2D, Doppler, and color-flow Echocardiogram Shop Lead: Brittany Oneal RT(R) Ht: 6 ft 0 in Wt: 252lbs BSA: 2.35 BP: 108/58 mmHg Indications: HTN, hyperlipidemia, SANDHU, dizziness, near syncope, CAD, CABG, PAD, MIO, multiple myeloma, Vtach 2D Dimensions LVOT 2.04 cm (M/F) 1.5-2.5 M-Mode Dimensions RVDd 2.10 cm (0.9-2.6) LVDd 5.05 cm (3.5-5.7) LVDs 3.84 cm (3.5-5.7) IVSd 1.07 cm (0.6-1.1) PWd 1.12 cm (0.6-1.1) EF (Teich) 47.50% FS 24.00% EDV (Teich) 121.00 mL ESV (Teich) 63.50 mL LV Diastology E/A Ratio 0.54 Mitral Valve MV A Velocity 82.00 (40-130 cm/s) Left Ventricle Left atrium is mildly enlarged, left ventricle is normal size, mild concentric left ventricular hypertrophy, visually estimated ejection fraction 45 to 50%, there is abnormal septal motion. Grade 1 diastolic dysfunction seen without tissue Doppler evidence of raise left atrial pressure. Right Ventricle Right atrium and right ventricular normal size and contractility. Aortic Valve Aortic valve is thickened and calcified without aortic stenosis, there is mild aortic insufficiency. Mitral Valve Mitral valve is minimally thickened, there is mitral annular calcification present, there is no mitral stenosis, there is mild mitral regurgitation. Tricuspid Valve Tricuspid valve is grossly normal, there is mild tricuspid regurgitation, tricuspid regurgitation jet velocity is inadequate for calculation of the right ventricular systolic pressure. Pulmonic Valve Pulmonic valve is poorly visualized. Great Vessels Aortic root is normal size. Pericardium No significant pericardial effusion noted. Conclusion 1. Mildly enlarged left atrium, normal left ventricular size, mild concentric left ventricular hypertrophy, visually estimated ejection fraction 45 to 50%, there is abnormal septal motion. Grade 1 diastolic dysfunction seen without tissue Doppler evidence of raise left atrial pressure. 2. Thickened and calcified aortic valve without aortic stenosis, there is mild aortic insufficiency. 3. Mild mitral and tricuspid regurgitation. 4. No significant pericardial effusion noted. Electronically signed by : Supa Mcintosh, 07/03/2020 09:36:09
--- NOTE | 2020-07-02 14:50 | PC.NURSE ---
patient being monitored in the ED by [facility] at this time, as there is no step down bed available.
--- NOTE | 2020-07-02 14:52 | PC.NURSE ---
IV started, and labs collected and sent.
[2020-07-02 14:58] LABS: Basophils % 0.8 % (0.1-2.0); Eosinophils # 0.1 K/mm3 (0.0-0.4); Eosinophils % 2.3 % (0.1-12.0); Hematocrit 38.2 % (42.0-52.0); Hemoglobin 14.2 g/dL (14.1-18.0); Lymphocytes # 0.9 K/mm3 (0.7-4.5); Lymphocytes % 27.5 % (10-50); Mean Corpuscular HGB Conc 37.1 g/dL (31.8-35.4); Mean Corpuscular Hemoglobin 34.5 pg (27.0-31.2); Mean Corpuscular Volume 93.1 fl (80-94); Mean Platelet Volume 8.3 fl (7.4-10.4); Monocytes # 0.4 K/mm3 (0.1-1.0); Monocytes % 13.9 % (1.7-9.3); Neutrophils # 1.8 K/mm3 (1.8-7.8); Neutrophils % 55.6 % (37.0-80.0); Platelet Count 151 K/mm3 (142-424); Red Blood Count 4.11 M/mm3 (4.60-6.20); Red Cell Distribution Width 14.6 % (11.5-17.5); White Blood Count 3.2 K/mm3 (4.8-10.8)
[2020-07-02 15:00] LABS: Chloride 96 mmol/L (98-107)
--- NOTE | 2020-07-02 15:00 | PC.NURSE ---
CV here to do Echocardiogram
[2020-07-02 15:01] LABS: Potassium 3.7 mmoL/L (3.5-5.1); Sodium 134 mmol/L (136-145)
[2020-07-02 15:03] LABS: Blood Urea Nitrogen 18 mg/dl (9-20); Creatinine Clearance Estimated 85 mL/min (50-200); Estimated Glomerular Filt Rate 55 ml/min (>60); GFR (African American) 66 ML/MIN (>60)
[2020-07-02 15:04] LABS: Anion Gap 14.7 mEq/L (5-15); Calcium 9.5 mg/dl (8.4-10.2); Carbon Dioxide 27 mmol/L (22.0-30.0); Glucose 154 mg/dl (74-100)
--- NOTE | 2020-07-02 15:23 | PC.NURSE ---
Pt reports he wishes to be a DNR. Primary RN notified.
--- NOTE | 2020-07-02 15:25 | PC.NURSE ---
pt had an episode of feeling like his heart was racing, pt had a 5 sec run of vtach. pt vitals remained intact during, pt remained awake and alert. pt returned to baseline rhythm with no further episodes. frequent pvcs noted on monitor.
--- NOTE | 2020-07-02 15:25 | HMH.HP ---
*Admission Date: 07/02/20 *Chief complaint: dizziness, near syncope *History of present illness: Mr. Swan is a 70-year-old male with a history of hypertension, ASCVD, hyperlipidemia, history of A. fib, peripheral neuropathy, monoclonal gammopathy of undetermined significance, and elevated PSA. He has been followed in the cardiology office and was seen today due to dizziness and near syncopal episodes. He states he has had dizziness and some SOA with exertion for 1 week. He has also had palpitations. He was seen by Lamar in Dr. Yates's office who wanted him to have a CT of his head and a heart cath. The patient declined. She did convince him to wear a monitor and he had this placed and went home. He had an episode of polymorphic ventricular tachycardia and was called and told he needed to report to the hospital for admission overnight and a heart cath and echo in the morning. At the time of the event, the patient denied any dizziness or near syncope. He will be directly admitted to Dr. Shea for an echo, telemetry, and a heart cath tomorrow morning. [facility] History I have reviewed the patient's past medical history: Yes Medical History: Reports:: Arrhythmia, Atherosclerotic Heart Disease, Atrial Fibrillation, Cancer (possible multiple myeloma), Cardiomyopathy, Congestive Heart Failure, Congenital Heart Disease, Coronary Artery Disease, Gall Bladder Disease, Hyperlipidemia, Hypertension, Kidney Stones, Myocardial Infarction, Palpitations Denies:: Diabetes Mellitus Type 1, Diabetes Mellitus Type 2, Internal Pacemaker, Lung Disease, MRSA *Have you ever received a pneumonia vaccine?: No *Have you received a flu vaccine this season?: No Other Medical History: Reports: Arthritis, Hypothyroidism, Thyroid Disease Laterality Cases: Bilateral: Tonsillectomy Other Surgeries: Yes: CABG, Cancer Surgery, Cardiac Catheterization, Cardiac Surgery, Cholecystectomy, Colonoscopy, Coronary Stent, Open Heart Surgery, Other. No: Pacemaker Amputation: No Fractures: No - *Social History Last grade of school completed: 7th or 8th Smoking Status: Never smoker Alcohol Intake: never Alcohol Intake Frequency:: other Substance Use Type: denies use *Occupational Status:: retired Housing: house Household Members: spouse *Travel in the last 8 weeks: None Family Hx:: Diabetes, Heart Attack, Hypertension Review of Systems - Constitutional Denies fever(s), Denies weakness - Eyes Denies blurry vision, Denies double vision - ENT Reports dizziness, Denies nasal congestion, Denies sore throat - *Cardiovascular Reports shortness of breath, Reports rapid, pounding, or irregular heartbeat, Denies chest pain, Denies leg swelling - *Respiratory Reports shortness of breath, Reports shortness of breath with activity, Denies cough - *Gastrointestinal Denies abdominal pain, Denies loose stools, Denies nausea, Denies vomiting - *Genitourinary Denies difficulty urinating, Denies painful urination - *Musculoskeletal Denies joint pain - *Neurologic Reports dizziness, Denies headache(s), Denies weakness Meds Home Medications Medication Instructions Recorded Confirmed Type atorvastatin 40 mg tablet 40 mg PO HS tab 12/20/17 07/02/20 History losartan 50 mg tablet 50 mg PO DAILY 01/02/18 07/02/20 History hydrochlorothiazide 25 mg tablet 25 mg PO DAILY #30 tab 04/12/18 07/02/20 Rx amlodipine 5 mg tablet 5 mg PO DAILY 12/12/18 07/02/20 History tamsulosin 0.4 mg capsule 0.4 mg PO DAILY 07/03/19 07/02/20 History levothyroxine 25 mcg tablet 50 mcg PO DAILY tab 04/02/20 07/02/20 History Amitriptyline HCl [Elavil 50mg 75 mg PO HS 07/02/20 07/02/20 History tablet] Rivaroxaban [Xarelto] 2.5 mg PO BID 07/02/20 07/02/20 History ropinirole 0.25 mg tablet 0.5 mg PO BID tab 07/02/20 07/02/20 History Allergies Allergy/AdvReac Type Severity Reaction Status Date / Time No Known Allergies Allergy Verified 07/02/20 08:53 Exam Vital signs and Labs for Last 24
--- NOTE | 2020-07-02 15:34 | HMH.PNCARD ---
Subjective Date: 07/02/20 Time: 14:00 Principal diagnosis: Polymorphic VT Interval history: Pt was seen in the clinic today for follow up. Denies chest pain, tightness or pressure. Pt denies shortness of breath. Pt stated that he had been having dizziness on occasion. Lasting few seconds and resolves with rest. A 2 week holter monitor was ordered and placed on pt after appt this am. [employer] called and stated that holter monitor strips revealed polymorphic VT. Pt was contacted regarding VT on monitor strip. Pt stated that he was feeling fine and was having no dizziness. Recommended pt to return back to the clinic to discuss holter monitor strip and possible admission to [facility]. Pt returned to clinic. Discussed with pt the risk of VT and recommendation of being admitted to [facility] overnight and having a left heart catherization performed in the morning with Dr. Yates. Pt was agreeable. Dr. Yates was contacted and agreed to recommendations of being admitted to [facility] and [facility] in am. Dr. Tran was notified and agreed to admit pt to his service for inpatient admission. Echocardiogram was ordered to assess LV function and valve status. Left heart catherization orders were ordered with Dr. Yates in am. Recommend starting pt on Bisoprolol 5mg daily. Lab orders were also ordered. Discussed plan of care with Farida GONZALEZ. Pt was transported to telemtery step down via wheelchair with RN. Dx: Polymorphic VT Thank you for letting Cardiology participate in the care of this pt. Exam Vital signs and Labs for Last 24 Hours: Temp Pulse Resp BP Pulse Ox 98.2 F 79 15 134/85 96 07/02/20 14:20 07/02/20 14:20 07/02/20 14:20 07/02/20 14:20 07/02/20 14:20 Laboratory Results - last 24 hr 07/02/20 14:48: WBC 3.2 L, RBC 4.11 L, Hgb 14.2, Hct 38.2 L, MCV 93.1, MCH 34.5 H, MCHC 37.1 H, RDW 14.6, Plt Count 151, MPV 8.3, Neut % (Auto) 55.6, Lymph % (Auto) 27.5, Andrews % (Auto) 13.9 H, Eos % (Auto) 2.3, Baso % (Auto) 0.8, Neut # (Auto) 1.8, Lymph # (Auto) 0.9, Andrews # (Auto) 0.4, Eos # (Auto) 0.1, Baso # (Auto) 0.0 07/02/20 14:48: Sodium 134 L, Potassium 3.7, Chloride 96 L, Carbon Dioxide 27, Anion Gap 14.7, BUN 18, Creatinine 1.30 H, Estimated Creat Clear 85, Estimated GFR 55 L, Est GFR ( Amer) 66, Glucose 154 H, Calcium 9.5 I & O for Last 24 hours: Intake & Output 06/29/20 06/30/20 07/01/20 07/02/20 23:59 23:59 23:59 23:59 Weight 252 lb - Constitutional no acute distress, cooperative - *Routine HEENT Exam Head: Present: normocephalic ENT: Present: mucous membranes moist - *Routine Neck Exam Present: supple, full ROM, normal carotid upstroke. Absent: JVD, carotid bruit - Routine Chest/Breast/Axilla Exam Chest wall: Absent: tenderness, mass, pacemaker - *Routine Respiratory Exam Present: accessory muscle use, CTA bilaterally. Absent: respiratory distress, wheezes, crackles - *Routine Cardiovascular Exam Present: RRR, Normal S1, Normal S2. Absent: murmur, rubs, JVD - *Routine Abdominal Exam Present: soft, normoactive bowel sounds. Absent: tenderness, distended, guarding - *Routine Extremities Exam Present: full ROM, pulses intact, normal capillary refill. Absent: edema, calf tenderness - *Routine Skin Exam Present: intact, warm. Absent: erythema - *Routine Neurological Exam Present: alert, oriented X3 - Routine Psychiatric Exam Present: normal affect, cooperative Progress Note: A&P (1) Polymorphic ventricular tachycardia Start date: 07/02/20 Status: Acute Current Visit: Yes (2) Dizziness Status: Acute Current Visit: Yes (3) Near syncope Status: Acute Current Visit: Yes (4) Coronary arteriosclerosis Status: Chronic Current Visit: No (5) History of heart bypass surgery Status: Chronic Current Visit: No (6) Hyperlipidemia Status: Chronic Current Visit: No (7) Neuropathy Problem details: Status: Chronic Current Visit: No (8) MIO (obstructiv
[2020-07-02 15:53] LABS: Coronavirus 19 IgG Antibody Negative (Negative); Coronavirus 19 IgM Antibody Negative (Negative)
--- NOTE | 2020-07-02 16:05 | PC.NURSE ---
PT transported, and placed in room at 1550. Assisted to bathroom, admission education given, pt oriented to call light, and bed. DNR paperwork signed. Pt has no complaints at this time. VSS. 138/77, hr 75, rr 15, sat 99% on room air.
--- NOTE | 2020-07-02 16:20 | HMH.PHAVTE ---
[facility] VTE Monitoring - Patient Demographics Admission date: 07/02/20 Report Date: 07/02/20 Time: 16:20 Allergies/Adverse Reactions: Patient Allergies No Known Allergies Allergy (Verified 07/02/20 08:53) Height: 1.83 m Weight: 114.305 kg Patient Problems: Current Active Problems Dizziness (Acute) Near syncope (Acute) Polymorphic ventricular tachycardia (Acute) - VTE Risk Labs: VTE Related Lab Results Hgb 14.2 g/dL (14.1-18.0) 07/02/20 14:48 Hct 38.2 % (42.0-52.0) L 07/02/20 14:48 Plt Count 151 K/mm3 (142-424) 07/02/20 14:48 BUN 18 mg/dl (9-20) 07/02/20 14:48 Creatinine 1.30 mg/dl (0.66-1.25) H 07/02/20 14:48 Estimated Creat Clear 85 mL/min (50-200) 07/02/20 14:48 Was VTE Risk Assessment Performed: Yes VTE Score: 6 VTE Risk Level: Moderate Risk - Prophylaxis VTE Prophylaxis Ordered?: Yes Types of VTE Prophylaxis: TEDS Knee High Location of Applied Device: Bilateral Lower Extremeties
[2020-07-02 19:21] LABS: Creatine Kinase 441 U/L (55-170)
--- NOTE | 2020-07-02 19:24 | PC.NURSE ---
report given to riya
[2020-07-02 19:31] LABS: Creatine Kinase MB 4.2 ng/ml (0.0-2.03)
[2020-07-02 19:38] LABS: Troponin I 0.01 ng/ml (0.00-0.034)
[2020-07-02 19:53] LABS: Thyroid Stimulating Hormone 5.28 uIU/mL (0.465-4.68)
--- NOTE | 2020-07-02 23:08 | PC.NURSE ---
He is A&Ox4. He denies pain. He is ambulating to the bathroom with steady gait. Uses call light appropriately to get help with tubing and supervision during ambulation. He denies SOA. He reports he feels dizzy at times when his rhythm changes but denies any chest pain during those times. He continues on RA. He reports his last BM was 07/02/20. He is aware that he will be NPO at midnight. He was informed that oral swabs after available if his mouth becomes dry while NPO. He ate cheese and crackers as a snack.
[2020-07-03] VITALS (24 sets, daily range): BP systolic 94–164; BP diastolic 50–89; PULSE 59–78; RESP 12–20; TEMP 36.2–36.8; O2SAT 94–100; BMI 34.1
--- NOTE | 2020-07-03 | IR_ITS ---
APPROVED REPORT Patient Location: Inpatient PROCEDURES Left heart catheterization Left ventriculogram Selective coronary angiogram Selective engagement of left internal mammary artery with angiography Selective engagement of the saphenous vein graft supplying the circumflex artery which then skips over to the right coronary arteries posterior descending artery INDICATION History of coronary bypass surgery, Symptomatic ventricular tachycardia, Coronary artery disease Informed consent was obtained prior to the procedure. COMPLICATIONS NONE Estimated Blood Loss: LESS THAN 10 ML TECHNIQUE One percent lidocaine used to anesthetize the right groin. The right femoral artery was accessed via the Seldinger technique and a 5 Micronesian sheath was placed in the right femoral artery. A JL 4, JR4 catheter were used to perform left heart catheterization, left ventriculogram selective coronary angiography as well as selective engagement of the 2 vein grafts and the left internal mammary artery. At the end of the procedure the patient was transferred to the postop holding area in stable condition for sheath removal. ANGIOGRAPHIC RESULTS The left main artery Has an ostial 30% stenosis The left anterior descending artery Has proximal 40% stenosis mid vessel 40% stenosis then subtotally occluded. It does give rise to 2 small to moderate diagonal arteries The circumflex artery Ostially occluded The right coronary artery Dominant proximally occluded The AVILA ventriculogram reveals Dilated ventricle ejection fraction 30 to 35% The left ventricular end-diastolic pressure 15 mmHg Left internal mammary artery is widely patent to the LAD Saphenous vein graft which supplies the circumflex artery is widely patent. The circumflex artery itself is a small moderate to severely diffusely diseased vessel. The saphenous vein then skips over to the posterior descending artery and is widely patent. The posterior descending artery is a small caliber vessel moderate to severely diffusely diseased and no greater than 2 mm in diameter IMPRESSION Extensive small vessel coronary artery disease as well as macrovascular coronary artery disease as described above Patent DURAND to the LAD Patent saphenous vein graft to the circumflex artery with a widely patent skip graft over to the right coronary arteries posterior descending artery Dilated ventricle with reduced ejection fraction Normal left ventricular end-diastolic pressure PLAN 1. Due to patient's extremely fast ventricular tachycardia and LV dysfunction he will be scheduled for defibrillator later today 2. Continue with bisoprolol 10 mg daily as well as standard therapy for systolic heart failure 3. LDL less than 55 Electronically signed by : Shawn Yates, 07/03/2020 10:41:58
--- NOTE | 2020-07-03 | IR_ITS ---
APPROVED REPORT Patient Location: Inpatient Rope Laying Machine Operator: ESTEFANI Nunez RT (R) PROCEDURES 1. Pocket formation for AICD. 2. Placement of atrial sensing and pacing coil into the right atrial appendage. 3. Placement of a ventricular sensing, pacing and shocking coil in the right ventricular apex. 4. Permanent AICD placement. INDICATION Ischemic Cardiomypathy, Systolic Congestive Heart Failure, ejection < 35%, [place] Heart Assoication Class 3 Congestive Heart Failure, Symptomatic ventricular tachycardia Informed consent was obtained prior to the procedure. COMPLICATIONS None Estimated Blood Loss: Less than 10 ML TECHNIQUE 1% Lidocaine with epinephrine used to anesthetized the left anterior aspect of the chest. Scalpel was used to make the initial cutaneous incision while electrocautery was used to dissect down tinto the fascia. The fascia was lifted off the pectoralis muscle and digitally manipulated creating a pocket for the defibrillator. The patient was then placed in Trendelenburg position and the subclavian vein was accessed 3 times via the Selinger technique. A 8 Swiss sheath was placed under fluoroscopic guidance into the subclavian vein. The dilator was removed from the sheath. Using fluoroscopic guidance, the ventricular lead was placed into the right ventricular apex, screwed and secured into place. Electronic interrogation proved acceptable thresholds and voltage within the lead. Using 3-0 silk, the ventricular lead was then secured into place and sheath peeled away. Following this, a 9.5 Swiss sheath and dilator was then placed over one of the wires while keeping the other wire in place within the subclavian vein. The dilator was removed from the sheath. Using fluoroscopic guidance, contrast was used to visualize the coronary sinus, the left ventricular lead was placed into the coronary sinus. Electronic interrogation proved acceptable thresholds and voltage within the lead. Using 3-0 silk, the left ventricular lead was then secured into place and sheath peeled away.An additional 6 Swiss fresh sheath and dilator was placed over the existing wire. Using fluoroscopic guidance, the atrial lead was then placed into the right atrial appendage and screwed and secured in place. Electrical interrogation demonstrated acceptable thresholds and voltage number. The atrial lead was then secured into place using 3-0 silk and sheath peeled away. 1 gram of Ancef was used to flush the pocket. All 3 leads were connected to generator and tested via computer. The defibrillator then secured to the fascia. Monocryl was used to close the subcutaneous layers while frank were used to close the cutaneous layer. A pressure dressing was placed and the patient was transferred to the postop holding area in stable condition for postoperative care. INTERROGATION Generator Model: Ihsan REYES ICD DF4-DR D233 Generator Serial No: [id number] RA Lead Model: Ingevity + IS-1 Bi Positive Fix RA/RV 52 CM 7841 RA Lead Serial No: [id number] RV Lead Model: Elmer 4-Front Active Fix Dual Coil 59 CM 0675 RA Lead Serial No: [id number] Device Measurements: RA Lead: Intrinsic: 2.0 mV Threshold: 0.8V@0.4ms Impedence: 594 Ohms RV Lead: Intrinsic: 18.0 mV Threshold: 0.5 V@0.4ms Impedence: 512 Ohms Parameters: Mode: DDDR Base/Max: 60/130ppm VF: 200bpm Quick Convert 41Jx8 VT: 170bpm ATP, 41Jx6 IMPRESSION 1. Successful Pocket formation for AICD. 2. Successful Placement of atrial sensing and pacing coil into the right atrial appendage. 3. Successful Placement of a ventricular sensing, pacing and shocking coil in the right ventricular apex. 4. Successful Permanent AICD placement.
[2020-07-03 06:12] LABS: Basophils # 0.1 K/mm3 (0-0.2); Basophils % 1.2 % (0.1-2.0); Eosinophils # 0.1 K/mm3 (0.0-0.4); Eosinophils % 2.9 % (0.1-12.0); Hemoglobin 15.3 g/dL (14.1-18.0); Lymphocytes # 1.2 K/mm3 (0.7-4.5); Lymphocytes % 31.1 % (10-50); Mean Corpuscular HGB Conc 35.6 g/dL (31.8-35.4); Mean Corpuscular Hemoglobin 34.6 pg (27.0-31.2); Mean Corpuscular Volume 97.2 fl (80-94); Monocytes # 0.5 K/mm3 (0.1-1.0); Monocytes % 12.8 % (1.7-9.3); Neutrophils # 2.1 K/mm3 (1.8-7.8); Platelet Count 189 K/mm3 (142-424); Red Blood Count 4.43 M/mm3 (4.60-6.20); Red Cell Distribution Width 14.4 % (11.5-17.5)
[2020-07-03 06:25] LABS: Chloride 99 mmol/L (98-107)
[2020-07-03 06:26] LABS: Potassium 4.2 mmoL/L (3.5-5.1); Sodium 137 mmol/L (136-145)
[2020-07-03 06:28] LABS: Alanine Aminotransferase 43 U/L (12-78); Aspartate Amino Transferase 40 U/L (17-59); Blood Urea Nitrogen 21 mg/dl (9-20); Creatine Kinase 387 U/L (55-170); Creatinine Clearance Estimated 85 mL/min (50-200); Estimated Glomerular Filt Rate 55 ml/min (>60); GFR (African American) 66 ML/MIN (>60)
[2020-07-03 06:29] LABS: Albumin Level 4.5 g/dl (3.5-5.0); Albumin/Globulin Ratio 1.3 (1.1-1.8); Alkaline Phosphatase 69 U/L (38-126); Anion Gap 11.2 mEq/L (5-15); Bilirubin,Total 0.9 mg/dl (0.2-1.3); Calcium 9.5 mg/dl (8.4-10.2); Carbon Dioxide 31 mmol/L (22.0-30.0); Globulin 3.5 g/dL (1.3-3.2); Glucose 162 mg/dl (74-100)
[2020-07-03 06:38] LABS: CKMB Relative Index 0.9 U/L (0-4.0); Creatine Kinase MB 3.5 ng/ml (0.0-2.03)
[2020-07-03 06:41] LABS: Troponin I 0.02 ng/ml (0.00-0.034)
--- NOTE | 2020-07-03 08:25 | HMH.ACPN2 ---
<Farida Ponce - Last Filed: 07/03/20 08:25> Internal Medicine - PN: Subj *Date: 07/03/20 *Time: 08:25 Interval history: Patient states he is feeling well this morning. He has not had any dizzy spells since admission. He denies any chest pain or shortness of breath this morning. Exam Vital signs and Labs for Last 24 Hours: Temp Pulse Resp BP Pulse Ox 98.8 F 78 15 105/50 L 95 07/02/20 20:00 07/03/20 06:00 07/03/20 06:00 07/03/20 06:00 07/03/20 06:00 Laboratory Results - last 24 hr 07/02/20 14:43: SARS-CoV-2 IgG Ab (Rapid) Negative, SARS-CoV-2 IgM Ab (Rapid) Negative 07/02/20 14:48: WBC 3.2 L, RBC 4.11 L, Hgb 14.2, Hct 38.2 L, MCV 93.1, MCH 34.5 H, MCHC 37.1 H, RDW 14.6, Plt Count 151, MPV 8.3, Neut % (Auto) 55.6, Lymph % (Auto) 27.5, [place] % (Auto) 13.9 H, Eos % (Auto) 2.3, Baso % (Auto) 0.8, Neut # (Auto) 1.8, Lymph # (Auto) 0.9, [place] # (Auto) 0.4, Eos # (Auto) 0.1, Baso # (Auto) 0.0 07/02/20 14:48: Sodium 134 L, Potassium 3.7, Chloride 96 L, Carbon Dioxide 27, Anion Gap 14.7, BUN 18, Creatinine 1.30 H, Estimated Creat Clear 85, Estimated GFR 55 L, Est GFR ( Amer) 66, Glucose 154 H, Calcium 9.5 07/02/20 18:48: Total Creatine Kinase 441 H, CK-MB (CK-2) 4.2 H, CK-MB (CK-2) Rel Index 1.0, Troponin I 0.01, TSH 5.28 H 07/03/20 05:32: WBC 4.0 L, RBC 4.43 L, Hgb 15.3, Hct 43.0, MCV 97.2 H, MCH 34.6 H, MCHC 35.6 H, RDW 14.4, Plt Count 189 D, MPV 7.0 L, Neut % (Auto) 52.0, Lymph % (Auto) 31.1, [place] % (Auto) 12.8 H, Eos % (Auto) 2.9, Baso % (Auto) 1.2, Neut # (Auto) 2.1, Lymph # (Auto) 1.2, [place] # (Auto) 0.5, Eos # (Auto) 0.1, Baso # (Auto) 0.1 07/03/20 05:32: Sodium 137, Potassium 4.2, Chloride 99, Carbon Dioxide 31 H, Anion Gap 11.2, BUN 21 H, Creatinine 1.30 H, Estimated Creat Clear 85, Estimated GFR 55 L, Est GFR ( Amer) 66, Glucose 162 H, Calcium 9.5, Total Bilirubin 0.9, AST 40, ALT 43, Alkaline Phosphatase 69, Total Protein 8.0, Albumin 4.5, Globulin 3.5 H, Albumin/Globulin Ratio 1.3 07/03/20 05:32: Total Creatine Kinase 387 H, CK-MB (CK-2) 3.5 H, CK-MB (CK-2) Rel Index 0.9, Troponin I 0.02 I & O for Last 24 hours: Intake & Output 06/30/20 07/01/20 07/02/20 07/03/20 11:59 11:59 11:59 11:59 Intake Total 981 / 981 Balance 981 / 981 Weight 251 lb 15.884 oz - Constitutional no acute distress - *Routine Respiratory Exam Present: CTA bilaterally - *Routine Cardiovascular Exam Present: RRR - *Routine Abdominal Exam Present: soft, normoactive bowel sounds. Absent: tenderness - *Routine Extremities Exam Absent: cyanosis, clubbing, edema - *Routine Skin Exam Present: warm. Absent: rash - *Routine Neurological Exam Present: alert, oriented X3 Assessment and Plan (1) Polymorphic ventricular tachycardia Start date: 07/02/20 Current visit: Yes Status: Acute Category: Medical Code(s): I47.2 - Ventricular tachycardia (2) Dizziness Current visit: Yes Status: Acute Category: Medical Code(s): R42 - Dizziness and giddiness (3) Near syncope Current visit: Yes Status: Acute Category: Medical Code(s): R55 - Syncope and collapse (4) Coronary arteriosclerosis Current visit: No Status: Chronic Category: Medical Code(s): I25.10 - Atherosclerotic heart disease of [place] coronary artery without angina pectoris (5) History of heart bypass surgery Current visit: No Status: Chronic Category: Surgical Code(s): Z95.1 - Presence of aortocoronary bypass graft (6) Hyperlipidemia Current visit: No Status: Chronic Qualifiers: Hyperlipidemia type: other hyperlipidemia Qualified Code(s): E78.49 - Other hyperlipidemia Category: Medical Code(s): E78.5 - Hyperlipidemia, unspecified (7) Neuropathy Problem details: Current visit: No Status: Chronic Category: Medical Code(s): G62.9 - Polyneuropathy, unspecified (8) MIO (obstructive sleep apnea) Current visit: No Status: Chronic Category: Medical Code(s): G47.33 - Obstr
--- NOTE | 2020-07-03 08:27 | HMH.PNCARD ---
Subjective Date: 07/03/20 Time: 08:27 Principal diagnosis: Polymorphic VT Interval history: 70-year-old white male in bed in no acute distress. Denies any chest pain, pressure or tightness. Telemetry reviewed with no recurrent episodes of V. tach overnight on bisoprolol. Plan is for left heart catheterization today. Exam Vital signs and Labs for Last 24 Hours: Temp Pulse Resp BP Pulse Ox 98.8 F 78 15 105/50 L 95 07/02/20 20:00 07/03/20 06:00 07/03/20 06:00 07/03/20 06:00 07/03/20 06:00 Laboratory Results - last 24 hr 07/02/20 14:43: SARS-CoV-2 IgG Ab (Rapid) Negative, SARS-CoV-2 IgM Ab (Rapid) Negative 07/02/20 14:48: WBC 3.2 L, RBC 4.11 L, Hgb 14.2, Hct 38.2 L, MCV 93.1, MCH 34.5 H, MCHC 37.1 H, RDW 14.6, Plt Count 151, MPV 8.3, Neut % (Auto) 55.6, Lymph % (Auto) 27.5, [place] % (Auto) 13.9 H, Eos % (Auto) 2.3, Baso % (Auto) 0.8, Neut # (Auto) 1.8, Lymph # (Auto) 0.9, [place] # (Auto) 0.4, Eos # (Auto) 0.1, Baso # (Auto) 0.0 07/02/20 14:48: Sodium 134 L, Potassium 3.7, Chloride 96 L, Carbon Dioxide 27, Anion Gap 14.7, BUN 18, Creatinine 1.30 H, Estimated Creat Clear 85, Estimated GFR 55 L, Est GFR ( Amer) 66, Glucose 154 H, Calcium 9.5 07/02/20 18:48: Total Creatine Kinase 441 H, CK-MB (CK-2) 4.2 H, CK-MB (CK-2) Rel Index 1.0, Troponin I 0.01, TSH 5.28 H 07/03/20 05:32: WBC 4.0 L, RBC 4.43 L, Hgb 15.3, Hct 43.0, MCV 97.2 H, MCH 34.6 H, MCHC 35.6 H, RDW 14.4, Plt Count 189 D, MPV 7.0 L, Neut % (Auto) 52.0, Lymph % (Auto) 31.1, [place] % (Auto) 12.8 H, Eos % (Auto) 2.9, Baso % (Auto) 1.2, Neut # (Auto) 2.1, Lymph # (Auto) 1.2, [place] # (Auto) 0.5, Eos # (Auto) 0.1, Baso # (Auto) 0.1 07/03/20 05:32: Sodium 137, Potassium 4.2, Chloride 99, Carbon Dioxide 31 H, Anion Gap 11.2, BUN 21 H, Creatinine 1.30 H, Estimated Creat Clear 85, Estimated GFR 55 L, Est GFR ( Amer) 66, Glucose 162 H, Calcium 9.5, Total Bilirubin 0.9, AST 40, ALT 43, Alkaline Phosphatase 69, Total Protein 8.0, Albumin 4.5, Globulin 3.5 H, Albumin/Globulin Ratio 1.3 07/03/20 05:32: Total Creatine Kinase 387 H, CK-MB (CK-2) 3.5 H, CK-MB (CK-2) Rel Index 0.9, Troponin I 0.02 I & O for Last 24 hours: Intake & Output 06/30/20 07/01/20 07/02/20 07/03/20 11:59 11:59 11:59 11:59 Intake Total 981 / 981 Balance 981 / 981 Weight 251 lb 15.884 oz - *Routine HEENT Exam Head: Present: normocephalic Eye: Present: EOMI, PERRL ENT: Present: mucous membranes moist - *Routine Respiratory Exam Present: CTA bilaterally - *Routine Cardiovascular Exam Present: RRR - *Routine Extremities Exam Absent: cyanosis, clubbing, edema - *Routine Neurological Exam Present: alert, oriented X3 Progress Note: A&P (1) Polymorphic ventricular tachycardia Status: Acute Current Visit: Yes (2) Dizziness Status: Acute Current Visit: Yes (3) Near syncope Status: Acute Current Visit: Yes (4) Coronary arteriosclerosis Status: Chronic Current Visit: No (5) History of heart bypass surgery Status: Chronic Current Visit: No (6) Hyperlipidemia Status: Chronic Current Visit: No (7) Neuropathy Problem details: Status: Chronic Current Visit: No (8) MIO (obstructive sleep apnea) Status: Chronic Current Visit: No (9) PAD (peripheral artery disease) Status: Chronic Current Visit: No Assessment and Plan for All Diagnoses:: 1. History of coronary bypass grafting in 2016. Due to polymorphic VT will proceed with left heart catheterization today to evaluate coronary artery disease as possible etiology. Last LHC in 2017 showed adequate revascularization with normal LVEF. 2. Polymorphic VT, now on bisoprolol therapy. No recurrence overnight. Evaluation ongoing with possible need for AICD implantation if coronary arteries and bypass grafts are patent. 3. PAD, on Xarelto which is being held for procedure. 4. History of HTN, on losartan and norvasc. Will stop norvasc in favor of bisoprolol. Previously intolerant o
--- NOTE | 2020-07-03 12:55 | SUR.PHASEII ---
Patient taken into general laborer for aicd placement at 1212. see other procedure charting.
--- NOTE | 2020-07-03 13:34 | XR_ITS ---
PROCEDURE: XR CHEST PORTABLE CLINICAL HISTORY: Confirm pacemaker/AID placement COMPARISON: CR CXR CHEST(2 VIEWS-NOT PORTABLE) from 01/27/2016 CR CXR CHEST(2 VIEWS-NOT PORTABLE) from 02/10/2016 CR CXR CHEST(2 VIEWS-NOT PORTABLE) from 07/22/[address] [facility] [address] CHEST W/O CONTRAST from 10/21/2017 FINDINGS: Borderline cardiomegaly without failure. Bipolar pacemaker is present from left subclavian approach. The leads are in good position. No evidence of pneumothorax. The lungs are clear without infiltrates, suspicious nodules, or pleural effusions. No acute bony abnormalities. IMPRESSION: Status post pacemaker placement with good lead position and no evidence of pneumothorax Dictated by: Hai Orellana MD 07/03/2020 15:52 Hai Orellana MD in [facility] 07/03/2020 15:52
--- NOTE | 2020-07-03 13:41 | P.PN_ITS ---
[facility] Anesthesia Checklist - Patient Identification Patient Identification: Arm Band - Structural Data Admitted From: Home Planned Operative Procedure/s: Permanent Pacemaker/AICD placement Consent for Planned Operative Procedure(s) Verified: Yes Verified Documents: Surgical Consent, History and Physical - NPO Status Verified Time NPO: 00:00 - Additional verifications Anesthesia Reactions: No - Airway Assessment C-Spine Mobility Assessed: Yes (mp2) TMJ Mobility Assessed: Yes Dentition: Poor Dentition - Neurological Assessment Level of Consciousness: Awake, Alert - Anesthesia Plan Anesthesia Risk discussed: Yes Anesthesia Plan: Verified ASA Class: III Anesthesia Type: MAC [facility] History I have reviewed the patient's past medical history: Yes Medical History: Reports:: Arrhythmia, Atherosclerotic Heart Disease, Atrial Fibrillation, Cancer (possible multiple myeloma), Cardiomyopathy, Congestive Heart Failure, Congenital Heart Disease, Coronary Artery Disease, Gall Bladder Disease, Hyperlipidemia, Hypertension, Kidney Stones, Myocardial Infarction, Palpitations Denies:: Diabetes Mellitus Type 1, Diabetes Mellitus Type 2, Internal Pacemaker, Lung Disease, MRSA *Have you ever received a pneumonia vaccine?: No *Have you received a flu vaccine this season?: No Other Medical History: Reports: Arthritis, Hypothyroidism, Thyroid Disease Anesthesia experience/problems:: nac Laterality Cases: Bilateral: Tonsillectomy Other Surgeries: Yes: CABG, Cancer Surgery, Cardiac Catheterization, Cardiac Surgery, Cholecystectomy, Colonoscopy, Coronary Stent, Open Heart Surgery, Other. No: Pacemaker Amputation: No Fractures: No - *Social History Last grade of school completed: 7th or 8th Smoking Status: Never smoker Alcohol Intake: never Alcohol Intake Frequency:: other Substance Use Type: denies use *Occupational Status:: retired Housing: house Household Members: spouse *Travel in the last 8 weeks: None Family Hx:: Diabetes, Heart Attack, Hypertension
--- NOTE | 2020-07-03 13:55 | PC.NURSE ---
Received report from Ree FentonRN in laborer construction or leak gang at this time
--- NOTE | 2020-07-03 17:07 | PC.NURSE ---
Pt remains on room air w/ no s/s of resp distress. Pt is paced on teley w/ HR in 60's. Dressing to left chest wall C/D/I. Pt reports being sore , but not in physical pain. PRN pain medication given per MAR w/ adequate relief verbalized. Dressing to (R) groin w/ quarter size serosange drainage, site is soft to touch. Pedal and radial pulses strong and palpable. Cap refill <3 sec. Pt has ambulated w/ standby assistance to bathroom, voiding w/o difficulty. Received verbal order from Dr. Shea for pt to be transferred out of step-down. Call pastor w/in reach. No needs voiced at this time. Will continue to monitor.
[2020-07-04] VITALS: BP 115/77; PULSE 60; PULSE 66; RESP 16; TEMP 36.7; O2SAT 94
[2020-07-04 04:00] VITALS: BP 114/73; PULSE 60; PULSE 66; RESP 16; TEMP 36.6; O2SAT 99
[2020-07-04 05:17] VITALS: BMI 33.6
--- NOTE | 2020-07-04 06:32 | PC.NURSE ---
Pt alert and oriented x4. Pt rested well with eyes closed this shift with no c/o pain. States tenderness to left upper chest region. No acute changes noted this shift. PERRLA. Bilateral hand shipping technician noted equal and strong. No edema noted. Refused teds. Tolerated RA well with no c/o soa. RR noted even and unlabored. Active bowel sounds noted upon auscultation. Adequate urine output noted. Dsg to right groin noted c/d/i with minimal drainage. No s/s/of hematoma noted. Amb well with standby assist in room. Pt states he gets a little unsteady on his feet at times when getting up . Will continue to monitor. VSS. Remains safe. Call light within reach.
--- NOTE | 2020-07-04 07:45 | HMH.PNCARD ---
Subjective Date: 07/04/20 Time: 07:45 Principal diagnosis: Polymorphic VT Interval history: 70-year-old white male in bed in no acute distress. Telemetry shows no evidence of recurrent V. tach. He does have some intermittent pacing with capture. Pacer site in the left chest area looks good with dressing dry and intact. Exam Vital signs and Labs for Last 24 Hours: Temp Pulse Resp BP Pulse Ox 97.8 F 66 16 114/73 99 07/04/20 04:00 07/04/20 04:00 07/04/20 04:00 07/04/20 04:00 07/04/20 04:00 I & O for Last 24 hours: Intake & Output 07/01/20 07/02/20 07/03/20 07/04/20 11:59 11:59 11:59 11:59 Intake Total 981 / 981 1094 / 1094 Output Total 850 / 850 Balance 981 / 981 244 / 244 Weight 251 lb 15.884 oz 248 lb 9 oz - *Routine HEENT Exam Head: Present: normocephalic Eye: Present: EOMI, PERRL ENT: Present: mucous membranes moist - *Routine Respiratory Exam Present: CTA bilaterally - *Routine Cardiovascular Exam Present: RRR - *Routine Extremities Exam Absent: cyanosis, clubbing, edema - *Routine Neurological Exam Present: alert, oriented X3 Progress Note: A&P (1) Polymorphic ventricular tachycardia Status: Acute Current Visit: Yes (2) Dizziness Status: Acute Current Visit: Yes (3) Near syncope Status: Acute Current Visit: Yes (4) Coronary arteriosclerosis Status: Chronic Current Visit: No (5) History of heart bypass surgery Status: Chronic Current Visit: No (6) Hyperlipidemia Status: Chronic Current Visit: No (7) Neuropathy Problem details: Status: Chronic Current Visit: No (8) MIO (obstructive sleep apnea) Status: Chronic Current Visit: No (9) PAD (peripheral artery disease) Status: Chronic Current Visit: No (10) Cardiomyopathy Status: Acute Current Visit: Yes Assessment and Plan for All Diagnoses:: 1. Polymorphic V. tach without recurrent obstructive coronary artery disease by cardiac catheterization yesterday. Controlled on bisoprolol 5 mg daily. AICD was implanted yesterday. 2. Coronary disease with history of bypass 2016, clinically stable. 3. History of PAD for which patient has previously been on Xarelto 2.5 mg twice daily. We will plan to restart tomorrow. 4. Hyperlipidemia, statin therapy 5. Cardiomyopathy, on beta-amber and losartan therapy. Patient can be discharged home from a cardiology standpoint. Follow-up in our office in 7 to 10 days for wound check. Home medication recommendations: bisoprolol 5 mg daily, losartan 50 mg daily, HCTZ 25 mg daily, atorvastatin 40 mg daily, restart Xarelto 2.5 mg twice daily tomorrow.
[2020-07-04 08:00] VITALS: PULSE 70
--- NOTE | 2020-07-04 08:21 | HMH.ACPN2 ---
<Farida Ponce - Last Filed: 07/04/20 08:21> Internal Medicine - PN: Subj *Date: 07/04/20 *Time: 08:21 Interval history: Patient states he is feeling well this morning. He does have some soreness in his chest from AICD placement. He has had no further dizzy spells or shortness of breath. He slept off and on and was able to eat breakfast. He is anxious to go home. Exam Vital signs and Labs for Last 24 Hours: Temp Pulse Resp BP Pulse Ox 97.8 F 66 16 114/73 99 07/04/20 04:00 07/04/20 04:00 07/04/20 04:00 07/04/20 04:00 07/04/20 04:00 I & O for Last 24 hours: Intake & Output 07/01/20 07/02/20 07/03/20 07/04/20 11:59 11:59 11:59 11:59 Intake Total 981 / 981 1094 / 1094 Output Total 850 / 850 Balance 981 / 981 244 / 244 Weight 251 lb 15.884 oz 248 lb 9 oz - Constitutional no acute distress - *Routine Respiratory Exam Present: CTA bilaterally - *Routine Cardiovascular Exam Present: RRR - *Routine Abdominal Exam Present: soft, normoactive bowel sounds. Absent: tenderness - *Routine Extremities Exam Absent: cyanosis, clubbing, edema - *Routine Skin Exam Present: warm. Absent: rash - *Routine Neurological Exam Present: alert, oriented X3 Assessment and Plan (1) Polymorphic ventricular tachycardia Start date: 07/02/20 Status: Acute Category: Medical Code(s): I47.2 - Ventricular tachycardia (2) Dizziness Status: Acute Category: Medical Code(s): R42 - Dizziness and giddiness (3) Near syncope Status: Acute Category: Medical Code(s): R55 - Syncope and collapse (4) Coronary arteriosclerosis Status: Chronic Category: Medical Code(s): I25.10 - Atherosclerotic heart disease of [place] coronary artery without angina pectoris (5) History of heart bypass surgery Status: Chronic Category: Surgical Code(s): Z95.1 - Presence of aortocoronary bypass graft (6) Hyperlipidemia Status: Chronic Qualifiers: Hyperlipidemia type: other hyperlipidemia Qualified Code(s): E78.49 - Other hyperlipidemia Category: Medical Code(s): E78.5 - Hyperlipidemia, unspecified (7) Neuropathy Problem details: Status: Chronic Category: Medical Code(s): G62.9 - Polyneuropathy, unspecified (8) MIO (obstructive sleep apnea) Status: Chronic Category: Medical Code(s): G47.33 - Obstructive sleep apnea (adult) (pediatric) (9) PAD (peripheral artery disease) Status: Chronic Category: Medical Code(s): I73.9 - Peripheral vascular disease, unspecified (10) Cardiomyopathy Status: Acute Category: Medical Code(s): I42.9 - Cardiomyopathy, unspecified - Assessment and plan all Dx Assessment and Plan for all problems:: Patient had a heart cath yesterday as well as AICD placement. Cardiology feels he is stable for discharge. Cardiology would like for him to be discharged on bisoprolol 5 mg daily, losartan 50 mg daily, HCTZ 25 mg daily, atorvastatin 40 mg daily, and Xarelto 2.5 mg twice daily tomorrow. <Kai Shea - Last Filed: 07/09/20 08:43> Internal Medicine - PN: Subj *Date: 07/09/20 *Time: 08:42 Exam Vital signs and Labs for Last 24 Hours: Temp Pulse Resp BP Pulse Ox 98.3 F 67 16 134/102 H 100 07/04/20 09:23 07/04/20 09:23 07/04/20 09:23 07/04/20 09:23 07/04/20 09:23 Assessment and Plan (1) Polymorphic ventricular tachycardia Start date: 07/02/20 Status: Acute Category: Medical Code(s): I47.2 - Ventricular tachycardia (2) Dizziness Status: Acute Category: Medical Code(s): R42 - Dizziness and giddiness (3) Near syncope Status: Acute Category: Medical Code(s): R55 - Syncope and collapse (4) Coronary arteriosclerosis Status: Chronic Category: Medical Code(s): I25.10 - Atherosclerotic heart disease of [place] coronary artery without angina pectoris (5) History of heart bypass surgery Status: Chronic Category: Surgical Code(s): Z95.1 - Pres
[2020-07-04 09:23] VITALS: BP 134/102; PULSE 67; RESP 16; TEMP 36.8; O2SAT 100
--- NOTE | 2020-07-04 10:47 | HMH.PHAINT ---
DISCHARGE COUNSELING-DISCUSSED DISCHARGE MEDICATIONS WITH PATIENT AND . MD STOPPING AMLODIPINE AND STARTING BISOPROLOL 5 MG DAILY.
--- NOTE | 2020-07-04 12:43 | HMH.DCSUM ---
General - General Admission date:: 07/02/20 <Kai Shea - 07/09/20 08:45> 07/02/20 <Farida Ponce - 07/04/20 12:50> Discharge date: 07/04/20 <Farida Ponce - 07/04/20 12:50> HPI HPI: Mr. Swan is a 70-year-old male with a history of hypertension, ASCVD, hyperlipidemia, history of A. fib, peripheral neuropathy, monoclonal gammopathy of undetermined significance, and elevated PSA. He has been followed in the cardiology office and was seen today due to dizziness and near syncopal episodes. He states he has had dizziness and some SOA with exertion for 1 week. He has also had palpitations. He was seen by Lamar in Dr. Yates's office who wanted him to have a CT of his head and a heart cath. The patient declined. She did convince him to wear a monitor and he had this placed and went home. He had an episode of polymorphic ventricular tachycardia and was called and told he needed to report to the hospital for admission overnight and a heart cath and echo in the morning. At the time of the event, the patient denied any dizziness or near syncope. He will be directly admitted to Dr. Shea for an echo, telemetry, and a heart cath tomorrow morning. <Farida Ponce - 07/04/20 12:50> Hospital Course Hospital Course: The patient was placed on telemetry and an echo was ordered. A heart cath was scheduled for the next day. He was also started on IV fluids at 50 mL an hour due to a slightly elevated renal function. He was started back on his home medications and bisoprolol 5 mg was added at the request of cardiology. The patient's echo showed an EF of 45 to 50% with grade 1 diastolic dysfunction. The patient had a heart cath on 07/03/2020 that showed extensive small vessel coronary artery disease. The patient did not have to have a stent placed. He did have a dilated ventricle with a reduced ejection fraction of 30 to 35%. Due to the patient's extremely fast ventricular tachycardia and left ventricular dysfunction, he was scheduled for defibrillator placement. He had an AICD placed on 07/03/2020 as well and tolerated the procedure. He had a chest x-ray showing good lead position of the pacemaker and no evidence of pneumothorax. By 07/04/2020, the patient felt well and wanted to be discharged home. Telemetry showed no evidence of recurrent V. tach and his pacer site looked good with a dressing that was dry and intact. Cardiology felt he could be discharged home with the addition of 5 mg of bisoprolol daily. They wanted him to restart his Xarelto 2.5 mg twice daily on 07/05/2020. He will need to follow-up with cardiology in 7 to 10 days for a wound check and will also follow-up with Dr. Shea. <Farida Ponce - 07/04/20 12:50> Objective Vital signs: Temp Pulse Resp BP Pulse Ox 98.3 F 67 16 134/102 H 100 07/04/20 09:23 07/04/20 09:23 07/04/20 09:23 07/04/20 09:23 07/04/20 09:23 <Kai Shea - 07/09/20 08:45> Temp Pulse Resp BP Pulse Ox 98.3 F 67 16 134/102 H 100 07/04/20 09:23 07/04/20 09:23 07/04/20 09:23 07/04/20 09:23 07/04/20 09:23 <Farida Ponce - 07/04/20 12:50> Narrative: - Constitutional no acute distress - *Routine Respiratory Exam Present: CTA bilaterally - *Routine Cardiovascular Exam Present: RRR - *Routine Abdominal Exam Present: soft, normoactive bowel sounds. Absent: tenderness - *Routine Extremities Exam Absent: cyanosis, clubbing, edema - *Routine Skin Exam Present: warm. Absent: rash - *Routine Neurological Exam Present: alert, oriented X3 <Farida Ponce - 07/04/20 12:50> DS: Diagnosis - Discharge Diagnosis (1) Polymorphic ventricular tachycardia Status: Acute (2) Dizziness Status: Acute (3) Near syncope Status: Acute (4) Coronary arteriosclerosis Status: Chronic (5) History of heart bypass surgery Status: Chronic (6) Hyperlipidemia Status: Chronic (7) Neuropathy St
== END 2020-07-04 10:48 | disposition home or self-care (01) ==
LOC: 2ND 14:16
PROVIDERS: Internal Medicine; Physician Assistant; Urology; Admitting Provider Family Medicine; PCP Family Medicine; Visit Provider Family Medicine
PROC: 0JH608Z Insertion of Defibrillator Generator into Chest Subcutaneous Tissue and Fascia, Open Approach (ICD-10-PCS; CPT 33249; principal; 2020-07-03 15:15)
DX: E78.5 Hyperlipidemia, unspecified (principal); G47.33 Obstructive sleep apnea (adult) (pediatric); I25.10 Atherosclerotic heart disease of native coronary artery without angina pectoris; Z95.1 Presence of aortocoronary bypass graft; I70.203 Unspecified atherosclerosis of native arteries of extremities, bilateral legs; I47.2 Ventricular tachycardia; I11.0 Hypertensive heart disease with heart failure; I50.20 Unspecified systolic (congestive) heart failure; G62.9 Polyneuropathy, unspecified; I48.91 Unspecified atrial fibrillation; I42.9 Cardiomyopathy, unspecified; E03.9 Hypothyroidism, unspecified; Z79.899 Other long term (current) drug therapy
CPT/HCPCS: 33249; 36415; 71045; 80048; 80053; 82550; 82553; 84443; 84484; 85025; 86328; 93270; 93306; 93459; 99152; C1721; C1725; C1760; C1769; C1894; C1895; C1898; G0378; J1644; Q9967

== ENCOUNTER → 2020-10-07 07:13 | Outpatient (CLI) | payer MEDICARE, BC, SELFPAY ==
[2020-10-07 07:39] LABS: Basophils % 0.8 % (0.1-2.0); Eosinophils # 0.1 K/mm3 (0.0-0.4); Hematocrit 45.4 % (42.0-52.0); Hemoglobin 15.7 g/dL (14.1-18.0); Lymphocytes # 0.8 K/mm3 (0.7-4.5); Lymphocytes % 30.1 % (10-50); Mean Corpuscular HGB Conc 34.6 g/dL (31.8-35.4); Mean Corpuscular Volume 98.3 fl (80-94); Mean Platelet Volume 7.2 fl (7.4-10.4); Monocytes # 0.3 K/mm3 (0.1-1.0); Monocytes % 11.4 % (1.7-9.3); Neutrophils # 1.5 K/mm3 (1.8-7.8); Neutrophils % 55.7 % (37.0-80.0); Platelet Count 156 K/mm3 (142-424); Red Blood Count 4.62 M/mm3 (4.60-6.20); Red Cell Distribution Width 14.9 % (11.5-17.5); White Blood Count 2.6 K/mm3 (4.8-10.8)
[2020-10-07 08:14] LABS: Chloride 94 mmol/L (98-107)
[2020-10-07 08:15] LABS: Potassium 4.4 mmoL/L (3.5-5.1); Sodium 134 mmol/L (136-145)
[2020-10-07 08:17] LABS: Alanine Aminotransferase 34 U/L (12-78); Alkaline Phosphatase 90 U/L (38-126); Aspartate Amino Transferase 40 U/L (17-59); Bilirubin,Total 0.8 mg/dl (0.2-1.3); Blood Urea Nitrogen 17 mg/dl (9-20); Estimated Glomerular Filt Rate 50 ml/min (>60); GFR (African American) 61 ML/MIN (>60)
[2020-10-07 08:18] LABS: Albumin/Globulin Ratio 1.3 (1.1-1.8); Anion Gap 11.4 mEq/L (5-15); Calcium 9.8 mg/dl (8.4-10.2); Carbon Dioxide 33 mmol/L (22.0-30.0); Globulin 3.8 g/dL (1.3-3.2); Glucose 136 mg/dl (74-100); Total Protein,Serum 8.8 g/dl (6.3-8.2)
[2020-10-08 14:40] LABS: Immunoglobulin A, Qn 83 mg/dL (61-437); Immunoglobulin G, Qn 2196 mg/dL (603-1613)
[2020-10-08 15:47] LABS: Immunoglobulin M, Qn 18 mg/dL (20-172)
[2020-10-08 16:17] LABS: Alpha-1-Globulin 0.2 g/dL (0.0-0.4); Alpha-2-Globulin 0.6 g/dL (0.4-1.0); Free Kappa Lt Chains 78.5 mg/L (3.3-19.4); Free Lambda Lt Chains 10.7 mg/L (5.7-26.3); Protein, Total 7.7 g/dL (6.0-8.5)
== END ==
PROVIDERS: Visit Provider Internal Medicine Medical Oncology
DX: D47.2 Monoclonal gammopathy (principal)
CPT/HCPCS: 36415; 80053; 82784; 83883; 84155; 84165; 85025; 86334

== ENCOUNTER → 2020-12-04 07:02 | Outpatient (CLI) | payer MEDICARE, BC, SELFPAY ==
[2020-12-04 07:43] LABS: Eosinophils # 0.1 K/mm3 (0.0-0.4); Eosinophils % 3.8 % (0.1-12.0); Hematocrit 41.3 % (42.0-52.0); Hemoglobin 13.7 g/dL (14.1-18.0); Lymphocytes # 0.6 K/mm3 (0.7-4.5); Lymphocytes % 25.1 % (10-50); Mean Corpuscular HGB Conc 33.1 g/dL (31.8-35.4); Mean Corpuscular Hemoglobin 32.4 pg (27.0-31.2); Mean Corpuscular Volume 97.6 fl (80-94); Mean Platelet Volume 7.1 fl (7.4-10.4); Monocytes # 0.2 K/mm3 (0.1-1.0); Monocytes % 10.8 % (1.7-9.3); Neutrophils # 1.3 K/mm3 (1.8-7.8); Neutrophils % 59.2 % (37.0-80.0); Platelet Count 149 K/mm3 (142-424); Red Blood Count 4.23 M/mm3 (4.60-6.20); Red Cell Distribution Width 14.8 % (11.5-17.5); White Blood Count 2.3 K/mm3 (4.8-10.8)
[2020-12-04 08:15] LABS: Chloride 98 mmol/L (98-107); Potassium 4.3 mmoL/L (3.5-5.1); Sodium 137 mmol/L (136-145)
[2020-12-04 08:17] LABS: Blood Urea Nitrogen 18 mg/dl (9-20); Estimated Glomerular Filt Rate 46 ml/min (>60); GFR (African American) 56 ML/MIN (>60)
[2020-12-04 08:18] LABS: Alanine Aminotransferase 45 U/L (12-78); Albumin Level 4.6 g/dl (3.5-5.0); Albumin/Globulin Ratio 1.2 (1.1-1.8); Alkaline Phosphatase 91 U/L (38-126); Anion Gap 10.3 mEq/L (5-15); Aspartate Amino Transferase 36 U/L (17-59); Bilirubin,Total 0.8 mg/dl (0.2-1.3); Calcium 9.6 mg/dl (8.4-10.2); Carbon Dioxide 33 mmol/L (22.0-30.0); Globulin 3.9 g/dL (1.3-3.2); Glucose 141 mg/dl (74-100); Total Protein,Serum 8.5 g/dl (6.3-8.2)
[2020-12-05 14:47] LABS: Immunoglobulin A, Qn 80 mg/dL (61-437); Immunoglobulin G, Qn 2297 mg/dL (603-1613)
[2020-12-05 17:56] LABS: Immunoglobulin M, Qn 18 mg/dL (20-172)
[2020-12-05 19:03] LABS: Free Kappa Lt Chains 90.6 mg/L (3.3-19.4); Free Lambda Lt Chains 9.4 mg/L (5.7-26.3)
[2020-12-09 17:12] LABS: Alpha-1-Globulin 0.3 g/dL (0.0-0.4); Alpha-2-Globulin 0.6 g/dL (0.4-1.0); Protein, Total 7.8 g/dL (6.0-8.5)
== END ==
PROVIDERS: Visit Provider Internal Medicine Medical Oncology
DX: D64.9 Anemia, unspecified (principal)
CPT/HCPCS: 36415; 80053; 82784; 83883; 84155; 84165; 85025; 86334

== ENCOUNTER → 2020-12-31 11:11 | Outpatient (CLI) | payer MEDICARE, BC, SELFPAY ==
--- NOTE | 2020-12-31 11:17 | XR_ITS ---
PROCEDURE: XR CHEST 2V CLINICAL HISTORY: Dyspnea COMPARISON: CR CXR CHEST(2 VIEWS-NOT PORTABLE) from 02/10/2016 CR CXR CHEST(2 VIEWS-NOT PORTABLE) from 07/22/[address] [facility] [address] CHEST W/O CONTRAST from 10/21/2017 CR XR CHEST PORTABLE from 07/03/2020 FINDINGS: Borderline emphysematous changes seen with mild hyperexpansion lung hankins. There is no infiltrate. Cardiac size is normal. There is no vascular congestion and there is no pleural fluid. There are sternal wire sutures and surgical clips likely from previous CABG. There is a left infraclavicular cardiac pacemaker with dual chamber electrodes both in good position. There are mild multilevel degenerate changes of the midthoracic spine. IMPRESSION: No acute findings. Dictated by: Dr. Antelmo Pastor MD 12/31/2020 13:26 Dr. Antelmo Pastor MD in [place] 12/31/2020 13:26
[2020-12-31 12:20] VITALS: PULSE 72; PULSE 78
== END ==
PROVIDERS: PCP Family Medicine; Visit Provider Internal Medicine Pulmonary Disease
DX: J44.9 Chronic obstructive pulmonary disease, unspecified
CPT/HCPCS: 71046; 94060; 94618; 94640; 94727; 94729

== ENCOUNTER 2021-01-08 11:12 | Day surgery (SDC) | payer MEDICARE, BC, SELFPAY ==
[2021-01-08 11:09] LABS: Coronavirus 19 IgG Antibody Negative (Negative); Coronavirus 19 IgM Antibody Negative (Negative)
[2021-01-08 11:57] VITALS: BP 134/76; PULSE 51; RESP 18; TEMP 36.2; O2SAT 99; BMI 33.9
[2021-01-08 12:30] VITALS: BP 134/76; PULSE 51; RESP 18; TEMP 36.2; O2SAT 99
--- NOTE | 2021-01-08 14:07 | HMH.OPNOTE ---
Date of procedure: 01/08/21 Pre-op Diagnosis:: elevated protein levels Post-op Diagnosis:: same Procedure performed:: bone marrow aspirate and biopsy Surgeon:: Annmarie Parker MD Anesthesia: local Estimated blood loss (mL): 0 Operative findings:: spicules present Operative note:: sterile technique used. betadine prep. procedure done with local lidocaine at site. bone marrow aspirate and biopsy obtained. no complications. Condition: stable Disposition: same day Complications:: none
== END 2021-01-08 12:30 | disposition home or self-care (01) ==
LOC: OR 11:12
PROVIDERS: Visit Provider Internal Medicine Medical Oncology
DX: R79.9 Abnormal finding of blood chemistry, unspecified (principal); I11.9 Hypertensive heart disease without heart failure; I25.10 Atherosclerotic heart disease of native coronary artery without angina pectoris; G47.33 Obstructive sleep apnea (adult) (pediatric); I73.9 Peripheral vascular disease, unspecified; G62.9 Polyneuropathy, unspecified; M19.90 Unspecified osteoarthritis, unspecified site; I47.2 Ventricular tachycardia; Z95.810 Presence of automatic (implantable) cardiac defibrillator
CPT/HCPCS: 38222; 36415; 85097; 86328; 88305; 88311; 88313; 88342; 88364; 88365

== ENCOUNTER → 2021-02-16 07:53 | Outpatient (CLI) | payer MEDICARE, BC, SELFPAY ==
[2021-02-16 08:27] LABS: Hemoglobin A1C 5.7 % (4.0-6.0)
[2021-02-16 08:29] LABS: Chloride 95 mmol/L (98-107); Sodium 132 mmol/L (136-145)
[2021-02-16 08:30] LABS: Potassium 4.7 mmoL/L (3.5-5.1)
[2021-02-16 08:32] LABS: Alanine Aminotransferase 36 U/L (12-78); Alkaline Phosphatase 82 U/L (38-126); Anion Gap 10.7 mEq/L (5-15); Aspartate Amino Transferase 34 U/L (17-59); Bilirubin,Total 0.7 mg/dl (0.2-1.3); Blood Urea Nitrogen 16 mg/dl (9-20); Carbon Dioxide 31 mmol/L (22.0-30.0); Estimated Glomerular Filt Rate 50 ml/min (>60); GFR (African American) 61 ML/MIN (>60)
[2021-02-16 08:33] LABS: Albumin Level 4.6 g/dl (3.5-5.0); Albumin/Globulin Ratio 1.2 (1.1-1.8); Calcium 9.5 mg/dl (8.4-10.2); Chol/HDL Ratio 3.9 (1-3.5); Cholesterol 106 mg/dl (140-200); Globulin 3.8 g/dL (1.3-3.2); Glucose 153 mg/dl (74-100); HDL Cholesterol 27 mg/dl (40-60); Total Protein,Serum 8.4 g/dl (6.3-8.2); Triglycerides 165 mg/dl (30-150); VLDL Cholesterol 33 mg/dL (0-40)
[2021-02-16 08:44] LABS: Direct LDL Cholesterol 41.95 mg/dL (100-129)
[2021-02-16 09:03] LABS: Thyroid Stimulating Hormone 3.87 uIU/mL (0.465-4.68)
== END ==
PROVIDERS: Visit Provider Family Medicine
DX: I10 Essential (primary) hypertension (principal); E78.5 Hyperlipidemia, unspecified; E03.9 Hypothyroidism, unspecified; Z79.899 Other long term (current) drug therapy
CPT/HCPCS: 36415; 80053; 80061; 83036; 84443

== ENCOUNTER → 2021-02-20 08:35 | Outpatient (CLI) | payer MEDICARE, BC, SELFPAY ==
--- NOTE | 2021-02-20 08:36 | CA_ITS ---
APPROVED REPORT Team Psychologist: GAURANG Laterality: Bilateral Indications: dizziness, near syncope Risk Factors Hypertension: Hyperlipidemia Doppler Spectral Velocity Analysis ECA (R) 71.80/9.70 cm/s ECA (L) 50.90/6.00 cm/s dICA (R) 63.30/25.20 cm/s dICA (L) 63.60/28.90 cm/s Tai (R) 49.70/19.30 cm/s Tai (L) 62.00/26.70 cm/s pICA (R) 41.70/13.40 cm/s pICA (L) 38.90/13.30 cm/s dCCA (R) 43.50/10.00 cm/s dCCA (L) 73.80/14.80 cm/s pCCA (R) 70.60/11.80 cm/s pCCA (L) 96.30/21.20 cm/s Vert (R) 35.90/13.70 cm/s Vert (L) 51.00/17.30 cm/s ICA/CCA 1.45 ICA/CCA 0.86 Findings Duplex evaluation demonstrates stenosis of the right proximal internal carotid artery in the range of 20-49% (lower end of scale). Duplex evaluation demonstrates stenosis of the left proximal internal carotid artery <20%. Electronically signed by : Hai Orellana MD 02/20/2021 17:54:14
== END ==
PROVIDERS: PCP Family Medicine; Visit Provider Urology
DX: E78.5 Hyperlipidemia, unspecified (principal); G47.33 Obstructive sleep apnea (adult) (pediatric); I11.9 Hypertensive heart disease without heart failure; I25.10 Atherosclerotic heart disease of native coronary artery without angina pectoris; I73.9 Peripheral vascular disease, unspecified; R06.00 Dyspnea, unspecified; R42 Dizziness and giddiness; R55 Syncope and collapse; Z95.1 Presence of aortocoronary bypass graft
CPT/HCPCS: 93880

== ENCOUNTER → 2021-04-10 07:02 | Outpatient (CLI) | payer MEDICARE, BC, SELFPAY ==
[2021-04-10 08:00] LABS: Basophils % 1.1 % (0.1-2.0); Eosinophils # 0.1 K/mm3 (0.0-0.4); Eosinophils % 1.7 % (0.1-12.0); Hematocrit 37.6 % (42.0-52.0); Hemoglobin 13.3 g/dL (14.1-18.0); Lymphocytes # 0.7 K/mm3 (0.7-4.5); Lymphocytes % 24.7 % (10-50); Mean Corpuscular HGB Conc 35.4 g/dL (31.8-35.4); Mean Platelet Volume 7.6 fl (7.4-10.4); Monocytes # 0.4 K/mm3 (0.1-1.0); Monocytes % 13.2 % (1.7-9.3); Neutrophils # 1.6 K/mm3 (1.8-7.8); Neutrophils % 59.3 % (37.0-80.0); Platelet Count 165 K/mm3 (142-424); Red Blood Count 4.04 M/mm3 (4.60-6.20); Red Cell Distribution Width 15.1 % (11.5-17.5); White Blood Count 2.8 K/mm3 (4.8-10.8)
[2021-04-10 08:14] LABS: Chloride 94 mmol/L (98-107); Potassium 4.8 mmoL/L (3.5-5.1); Sodium 131 mmol/L (136-145)
[2021-04-10 08:16] LABS: Blood Urea Nitrogen 19 mg/dl (9-20)
[2021-04-10 08:17] LABS: Alanine Aminotransferase 33 U/L (12-78); Albumin Level 4.6 g/dl (3.5-5.0); Albumin/Globulin Ratio 1.2 (1.1-1.8); Alkaline Phosphatase 79 U/L (38-126); Anion Gap 11.8 mEq/L (5-15); Aspartate Amino Transferase 39 U/L (17-59); Bilirubin,Total 0.8 mg/dl (0.2-1.3); Calcium 9.3 mg/dl (8.4-10.2); Carbon Dioxide 30 mmol/L (22.0-30.0); Estimated Glomerular Filt Rate 50 ml/min (>60); GFR (African American) 61 ML/MIN (>60); Glucose 143 mg/dl (74-100); Total Protein,Serum 8.6 g/dl (6.3-8.2)
[2021-04-13 15:31] LABS: Immunoglobulin A, Qn 68 mg/dL (61-437); Immunoglobulin G, Qn 2739 mg/dL (603-1613); Immunoglobulin M, Qn 14 mg/dL (20-172)
== END ==
PROVIDERS: Visit Provider Internal Medicine Medical Oncology
DX: C90.00 Multiple myeloma not having achieved remission (principal); D64.9 Anemia, unspecified
CPT/HCPCS: 36415; 80053; 82784; 85025; 86334

== ENCOUNTER → 2021-07-01 07:06 | Outpatient (CLI) | payer MEDICARE, BC, SELFPAY ==
[2021-07-01 08:40] LABS: Basophils % 1.1 % (0.1-2.0); Eosinophils # 0.1 K/mm3 (0.0-0.4); Eosinophils % 2.6 % (0.1-12.0); Hematocrit 38.8 % (42.0-52.0); Hemoglobin 13.1 g/dL (14.1-18.0); Lymphocytes # 0.7 K/mm3 (0.7-4.5); Lymphocytes % 24.1 % (10-50); Mean Corpuscular HGB Conc 33.7 g/dL (31.8-35.4); Mean Corpuscular Hemoglobin 33.7 pg (27.0-31.2); Mean Corpuscular Volume 100.1 fl (80-94); Mean Platelet Volume 8.2 fl (7.4-10.4); Monocytes # 0.3 K/mm3 (0.1-1.0); Monocytes % 10.2 % (1.7-9.3); Neutrophils # 1.7 K/mm3 (1.8-7.8); Platelet Count 200 K/mm3 (142-424); Red Blood Count 3.87 M/mm3 (4.60-6.20); Red Cell Distribution Width 14.9 % (11.5-17.5); White Blood Count 2.8 K/mm3 (4.8-10.8)
[2021-07-01 09:18] LABS: Alanine Aminotransferase 29 U/L (12-78); Albumin Level 4.2 g/dl (3.5-5.0); Albumin/Globulin Ratio 0.9 (1.1-1.8); Alkaline Phosphatase 88 U/L (38-126); Anion Gap 13.4 mEq/L (5-15); Aspartate Amino Transferase 32 U/L (17-59); Bilirubin,Total 0.7 mg/dl (0.2-1.3); Blood Urea Nitrogen 14 mg/dl (9-20); Calcium 9.3 mg/dl (8.4-10.2); Carbon Dioxide 30 mmol/L (22.0-30.0); Chloride 96 mmol/L (98-107); Estimated Glomerular Filt Rate 54 ml/min (>60); GFR (African American) 66 ML/MIN (>60); Globulin 4.8 g/dL (1.3-3.2); Glucose 166 mg/dl (74-100); Potassium 4.4 mmoL/L (3.5-5.1); Sodium 135 mmol/L (136-145)
[2021-07-02 15:49] LABS: Albumin 3.8 g/dL (2.9-4.4); Alpha-1-Globulin 0.3 g/dL (0.0-0.4); Alpha-2-Globulin 0.6 g/dL (0.4-1.0); Immunoglobulin A, Qn 69 mg/dL (61-437); Immunoglobulin G, Qn 3178 mg/dL (603-1613); Immunoglobulin M, Qn 16 mg/dL (15-143); Protein, Total 8.6 g/dL (6.0-8.5)
[2021-07-09 11:08] LABS: Free Kappa Lt Chains 121.4; Free Lambda Lt Chains 11.5
== END ==
PROVIDERS: Visit Provider Internal Medicine Medical Oncology
DX: C90.00 Multiple myeloma not having achieved remission (principal)
CPT/HCPCS: 36415; 80053; 82784; 83883; 84155; 84165; 85025; 86334

== ENCOUNTER → 2021-07-20 11:19 | Outpatient (CLI) | payer MEDICARE, BC, SELFPAY | PROVIDERS: PCP Family Medicine; Visit Provider Family Medicine | DX: Z20.822 Contact with and (suspected) exposure to COVID-19 (principal); U07.1 COVID-19 | CPT/HCPCS: C9803; U0003; U0005 ==

== ENCOUNTER 2021-08-06 12:25 | Outpatient (CLI) | payer MEDICARE, BC, SELFPAY ==
[2021-08-06 12:36] VITALS: BMI 35.2
[2021-08-06 12:59] LABS: Basophils % 1.2 % (0.1-2.0); Eosinophils # 0.1 K/mm3 (0.0-0.4); Eosinophils % 2.1 % (0.1-12.0); Hematocrit 37.8 % (42.0-52.0); Hemoglobin 12.9 g/dL (14.1-18.0); Lymphocytes # 0.9 K/mm3 (0.7-4.5); Lymphocytes % 26.4 % (10-50); Mean Corpuscular Hemoglobin 34.3 pg (27.0-31.2); Mean Corpuscular Volume 100.8 fl (80-94); Mean Platelet Volume 8.5 fl (7.4-10.4); Monocytes # 0.4 K/mm3 (0.1-1.0); Monocytes % 11.5 % (1.7-9.3); Neutrophils # 1.9 K/mm3 (1.8-7.8); Neutrophils % 58.8 % (37.0-80.0); Platelet Count 220 K/mm3 (142-424); Red Blood Count 3.75 M/mm3 (4.60-6.20); White Blood Count 3.3 K/mm3 (4.8-10.8)
[2021-08-06 13:06] LABS: Chloride 98 mmol/L (98-107); Sodium 134 mmol/L (136-145)
[2021-08-06 13:07] LABS: Potassium 4.1 mmoL/L (3.5-5.1)
[2021-08-06 13:09] LABS: Alanine Aminotransferase 44 U/L (12-78); Alkaline Phosphatase 99 U/L (38-126); Aspartate Amino Transferase 38 U/L (17-59); Bilirubin,Total 0.5 mg/dl (0.2-1.3); Blood Urea Nitrogen 16 mg/dl (9-20); Creatinine Clearance Estimated 94 mL/min (50-200); Estimated Glomerular Filt Rate 60 ml/min (>60); GFR (African American) 72 ML/MIN (>60)
[2021-08-06 13:10] LABS: Albumin Level 4.3 g/dl (3.5-5.0); Albumin/Globulin Ratio 0.8 (1.1-1.8); Anion Gap 12.1 mEq/L (5-15); Calcium 9.3 mg/dl (8.4-10.2); Carbon Dioxide 28 mmol/L (22.0-30.0); Globulin 5.1 g/dL (1.3-3.2); Glucose 127 mg/dl (74-100); Total Protein,Serum 9.4 g/dl (6.3-8.2)
[2021-08-06 13:22] VITALS: BP 134/71; PULSE 62; RESP 18; TEMP 36.3; O2SAT 98
[2021-08-06 13:42] VITALS: BP 129/68; PULSE 67; RESP 18; TEMP 36.3; O2SAT 98
--- NOTE | 2021-08-10 15:43 | DIET.NUTRFU ---
Pt contacted for nutrition consult for first dose chemotherapy. Pt states he was feeling okay after first infusion on 08/06 but developed nausea today, he took his prescribed nausea medication and states it has helped some, he has not had emesis. Diet edu/counseling for chemotherapy related nausea management provided. Pt voiced no other nutritional concerns. Encouraged him to reach out with any further questions/concerns at any time.
== END 2021-08-06 14:05 | disposition home or self-care (01) ==
LOC: INF 12:26
PROVIDERS: PCP Family Medicine; Visit Provider Internal Medicine Medical Oncology
DX: Z51.11 Encounter for antineoplastic chemotherapy (principal); C90.00 Multiple myeloma not having achieved remission
CPT/HCPCS: 80053; 85025; 96401; J9041

== ENCOUNTER → 2021-08-13 08:09 | Outpatient (CLI) | payer MEDICARE, BC, SELFPAY ==
[2021-08-13 08:17] VITALS: BMI 34.4
[2021-08-13 08:38] LABS: Basophils % 0.4 % (0.1-2.0); Eosinophils # 0.2 K/mm3 (0.0-0.4); Eosinophils % 5.8 % (0.1-12.0); Hematocrit 39.1 % (42.0-52.0); Hemoglobin 13.4 g/dL (14.1-18.0); Lymphocytes # 0.5 K/mm3 (0.7-4.5); Mean Corpuscular HGB Conc 34.2 g/dL (31.8-35.4); Mean Corpuscular Hemoglobin 34.7 pg (27.0-31.2); Mean Corpuscular Volume 101.5 fl (80-94); Mean Platelet Volume 8.4 fl (7.4-10.4); Monocytes # 0.2 K/mm3 (0.1-1.0); Monocytes % 6.2 % (1.7-9.3); Neutrophils # 2.2 K/mm3 (1.8-7.8); Neutrophils % 70.6 % (37.0-80.0); Platelet Count 129 K/mm3 (142-424); Red Blood Count 3.86 M/mm3 (4.60-6.20); Red Cell Distribution Width 15.6 % (11.5-17.5); White Blood Count 3.1 K/mm3 (4.8-10.8)
--- NOTE | 2021-08-13 08:46 | PC.NURSE ---
accessed pt to obtain labs prior to md appt today via butterfly needle. had to access pt x 3 for labs.
[2021-08-13 08:54] LABS: Chloride 97 mmol/L (98-107); Potassium 4.1 mmoL/L (3.5-5.1); Sodium 134 mmol/L (136-145)
[2021-08-13 08:57] LABS: Alanine Aminotransferase 56 U/L (12-78); Albumin Level 4.2 g/dl (3.5-5.0); Alkaline Phosphatase 95 U/L (38-126); Anion Gap 13.1 mEq/L (5-15); Aspartate Amino Transferase 41 U/L (17-59); Bilirubin,Total 0.6 mg/dl (0.2-1.3); Blood Urea Nitrogen 14 mg/dl (9-20); Calcium 8.8 mg/dl (8.4-10.2); Carbon Dioxide 28 mmol/L (22.0-30.0); Creatinine Clearance Estimated 110 mL/min (50-200); Estimated Glomerular Filt Rate 74 ml/min (>60); GFR (African American) 89 ML/MIN (>60); Globulin 4.3 g/dL (1.3-3.2); Glucose 203 mg/dl (74-100); Total Protein,Serum 8.5 g/dl (6.3-8.2)
[2021-08-13 09:34] VITALS: BP 112/62; PULSE 76; RESP 18; TEMP 36.4; O2SAT 98
== END ==
PROVIDERS: PCP Family Medicine; Visit Provider Internal Medicine Medical Oncology
DX: Z51.11 Encounter for antineoplastic chemotherapy (principal); C90.00 Multiple myeloma not having achieved remission
CPT/HCPCS: 80053; 85025; 96401; J9041

== ENCOUNTER 2021-08-20 07:58 | Outpatient (CLI) | payer MEDICARE, BC, SELFPAY ==
[2021-08-20 08:13] VITALS: BMI 34.2
[2021-08-20 08:44] LABS: Basophils % 0.6 % (0.1-2.0); Eosinophils # 0.2 K/mm3 (0.0-0.4); Eosinophils % 5.4 % (0.1-12.0); Hematocrit 42.6 % (42.0-52.0); Hemoglobin 14.2 g/dL (14.1-18.0); Lymphocytes # 0.4 K/mm3 (0.7-4.5); Lymphocytes % 12.6 % (10-50); Mean Corpuscular HGB Conc 33.4 g/dL (31.8-35.4); Mean Corpuscular Volume 101.7 fl (80-94); Mean Platelet Volume 7.9 fl (7.4-10.4); Monocytes # 0.5 K/mm3 (0.1-1.0); Monocytes % 14.9 % (1.7-9.3); Neutrophils # 2.3 K/mm3 (1.8-7.8); Neutrophils % 66.4 % (37.0-80.0); Platelet Count 90 K/mm3 (142-424); Red Blood Count 4.19 M/mm3 (4.60-6.20); Red Cell Distribution Width 14.6 % (11.5-17.5); White Blood Count 3.5 K/mm3 (4.8-10.8)
[2021-08-20 08:53] LABS: Chloride 95 mmol/L (98-107); Potassium 3.7 mmoL/L (3.5-5.1); Sodium 135 mmol/L (136-145)
[2021-08-20 08:56] LABS: Alanine Aminotransferase 31 U/L (12-78); Albumin Level 3.8 g/dl (3.5-5.0); Albumin/Globulin Ratio 1.1 (1.1-1.8); Alkaline Phosphatase 80 U/L (38-126); Anion Gap 11.7 mEq/L (5-15); Aspartate Amino Transferase 29 U/L (17-59); Bilirubin,Total 0.9 mg/dl (0.2-1.3); Blood Urea Nitrogen 20 mg/dl (9-20); Carbon Dioxide 32 mmol/L (22.0-30.0); Creatinine Clearance Estimated 91 mL/min (50-200); Estimated Glomerular Filt Rate 60 ml/min (>60); GFR (African American) 72 ML/MIN (>60); Globulin 3.5 g/dL (1.3-3.2); Total Protein,Serum 7.3 g/dl (6.3-8.2)
[2021-08-20 08:57] LABS: Calcium 8.5 mg/dl (8.4-10.2); Glucose 200 mg/dl (74-100)
[2021-08-20 09:43] VITALS: BP 110/66; PULSE 64; RESP 18; TEMP 36.6; O2SAT 100
== END 2021-08-20 09:43 | disposition home or self-care (01) ==
LOC: INF 07:59
PROVIDERS: PCP Family Medicine; Visit Provider Internal Medicine Medical Oncology
DX: Z51.11 Encounter for antineoplastic chemotherapy (principal); C90.00 Multiple myeloma not having achieved remission
CPT/HCPCS: 80053; 85025; 96401; J9041

== ENCOUNTER → 2021-08-28 12:34 | Outpatient (CLI) | payer MEDICARE, BC, SELFPAY | PROVIDERS: PCP Family Medicine; Visit Provider Physician Assistant | DX: I47.2 Ventricular tachycardia (principal) | CPT/HCPCS: 93306 ==

== ENCOUNTER 2021-09-03 08:20 | Outpatient (CLI) | payer MEDICARE, BC, SELFPAY ==
[2021-09-03 08:28] VITALS: BMI 33.6
[2021-09-03 08:58] LABS: Basophils # 0.1 K/mm3 (0-0.2); Basophils % 3.9 % (0.1-2.0); Eosinophils # 0.1 K/mm3 (0.0-0.4); Eosinophils % 2.1 % (0.1-12.0); Hematocrit 36.1 % (42.0-52.0); Hemoglobin 12.1 g/dL (14.1-18.0); Lymphocytes # 0.8 K/mm3 (0.7-4.5); Lymphocytes % 28.4 % (10-50); Mean Corpuscular HGB Conc 33.6 g/dL (31.8-35.4); Mean Corpuscular Hemoglobin 33.3 pg (27.0-31.2); Mean Corpuscular Volume 99.3 fl (80-94); Mean Platelet Volume 6.8 fl (7.4-10.4); Monocytes # 0.4 K/mm3 (0.1-1.0); Monocytes % 15.6 % (1.7-9.3); Neutrophils # 1.4 K/mm3 (1.8-7.8); Neutrophils % 49.9 % (37.0-80.0); Platelet Count 149 K/mm3 (142-424); Red Blood Count 3.63 M/mm3 (4.60-6.20); Red Cell Distribution Width 15.1 % (11.5-17.5); White Blood Count 2.8 K/mm3 (4.8-10.8)
[2021-09-03 09:09] LABS: Alanine Aminotransferase 33 U/L (12-78); Albumin Level 4.1 g/dl (3.5-5.0); Albumin/Globulin Ratio 1.4 (1.1-1.8); Alkaline Phosphatase 90 U/L (38-126); Anion Gap 12.9 mEq/L (5-15); Aspartate Amino Transferase 33 U/L (17-59); Bilirubin,Total 0.6 mg/dl (0.2-1.3); Blood Urea Nitrogen 12 mg/dl (9-20); Calcium 9.2 mg/dl (8.4-10.2); Carbon Dioxide 29 mmol/L (22.0-30.0); Chloride 99 mmol/L (98-107); Creatinine Clearance Estimated 98 mL/min (50-200); Estimated Glomerular Filt Rate 66 ml/min (>60); GFR (African American) 80 ML/MIN (>60); Glucose 180 mg/dl (74-100); Potassium 3.9 mmoL/L (3.5-5.1); Sodium 137 mmol/L (136-145); Total Protein,Serum 7.1 g/dl (6.3-8.2)
--- NOTE | 2021-09-03 09:17 | PC.NURSE ---
09/03/21 3630, nursing Edgar Garrido RN obtained blood via venipuncture with butterfly needle. specimen sent to lab. [facility] to attend [facility]
[2021-09-03 10:21] VITALS: BP 95/45; PULSE 65; RESP 20; TEMP 36.4; O2SAT 98
[2021-09-04 16:12] LABS: Albumin 3.7 g/dL (2.9-4.4); Alpha-1-Globulin 0.3 g/dL (0.0-0.4); Alpha-2-Globulin 0.6 g/dL (0.4-1.0); Gamma Globulin 1.4 g/dL (0.4-1.8); Immunoglobulin A, Qn 89 mg/dL (61-437); Immunoglobulin G, Qn 1419 mg/dL (603-1613); Immunoglobulin M, Qn 23 mg/dL (15-143); Protein, Total 6.9 g/dL (6.0-8.5)
== END 2021-09-03 10:40 | disposition home or self-care (01) ==
PROVIDERS: PCP Family Medicine; Visit Provider Internal Medicine Medical Oncology
DX: C90.00 Multiple myeloma not having achieved remission (principal)
CPT/HCPCS: 80053; 82784; 83883; 84155; 84165; 85025; 86334; 96401; J9041

== ENCOUNTER 2021-09-10 09:15 | Outpatient (CLI) | payer MEDICARE, BC, SELFPAY ==
[2021-09-10 09:22] VITALS: BMI 33.3
[2021-09-10 09:48] LABS: Basophils % 1.5 % (0.1-2.0); Eosinophils # 0.1 K/mm3 (0.0-0.4); Eosinophils % 4.8 % (0.1-12.0); Hematocrit 37.6 % (42.0-52.0); Hemoglobin 12.7 g/dL (14.1-18.0); Lymphocytes # 0.7 K/mm3 (0.7-4.5); Lymphocytes % 21.8 % (10-50); Mean Corpuscular HGB Conc 33.8 g/dL (31.8-35.4); Mean Corpuscular Volume 97.6 fl (80-94); Monocytes # 0.2 K/mm3 (0.1-1.0); Monocytes % 6.3 % (1.7-9.3); Neutrophils % 65.6 % (37.0-80.0); Platelet Count 108 K/mm3 (142-424); Red Blood Count 3.86 M/mm3 (4.60-6.20); Red Cell Distribution Width 15.4 % (11.5-17.5)
[2021-09-10 09:57] LABS: Alanine Aminotransferase 37 U/L (12-78); Albumin Level 4.1 g/dl (3.5-5.0); Albumin/Globulin Ratio 1.5 (1.1-1.8); Alkaline Phosphatase 84 U/L (38-126); Anion Gap 9.7 mEq/L (5-15); Aspartate Amino Transferase 29 U/L (17-59); Bilirubin,Total 0.7 mg/dl (0.2-1.3); Blood Urea Nitrogen 13 mg/dl (9-20); Calcium 9.1 mg/dl (8.4-10.2); Carbon Dioxide 32 mmol/L (22.0-30.0); Chloride 95 mmol/L (98-107); Creatinine Clearance Estimated 107 mL/min (50-200); Estimated Glomerular Filt Rate 74 ml/min (>60); GFR (African American) 89 ML/MIN (>60); Globulin 2.7 g/dL (1.3-3.2); Glucose 178 mg/dl (74-100); Potassium 3.7 mmoL/L (3.5-5.1); Sodium 133 mmol/L (136-145); Total Protein,Serum 6.8 g/dl (6.3-8.2)
[2021-09-10 11:41] VITALS: BP 129/71; PULSE 61; RESP 18; TEMP 36.6; O2SAT 98
== END 2021-09-10 12:00 | disposition home or self-care (01) ==
LOC: INF 09:16
PROVIDERS: PCP Family Medicine; Visit Provider Internal Medicine Medical Oncology
DX: Z51.11 Encounter for antineoplastic chemotherapy (principal); D46.9 Myelodysplastic syndrome, unspecified
CPT/HCPCS: 80053; 85025; 96401; J9041

== ENCOUNTER 2021-09-17 08:27 | Outpatient (CLI) | payer MEDICARE, BC, SELFPAY ==
[2021-09-17 09:20] VITALS: BP 106/65; PULSE 58; RESP 18; TEMP 35.6; O2SAT 100
--- NOTE | 2021-09-17 10:08 | PC.NURSE ---
0845-PREMEDICATED WITH COMPAZINE 10MG PO AT THIS TIME.
== END 2021-09-17 09:30 | disposition home or self-care (01) ==
LOC: INF 08:28
PROVIDERS: PCP Family Medicine; Visit Provider Internal Medicine Medical Oncology
DX: C90.00 Multiple myeloma not having achieved remission (principal)
CPT/HCPCS: 96409; J9041

== ENCOUNTER 2021-10-01 08:44 | Outpatient (CLI) | payer MEDICARE, BC, SELFPAY ==
[2021-10-01 08:50] VITALS: BMI 33.2
--- NOTE | 2021-10-01 09:15 | PC.NURSE ---
0905 - BLOOD DRAWN FROM RIGHT AC USING BUTTERFLY NEEDLE TO CHECK CBC AND CMP PRIOR TO ONCOLOGY APPOINTMENT WITH DR SCHMIDT.
[2021-10-01 09:22] LABS: Basophils % 1.7 % (0.1-2.0); Eosinophils # 0.1 K/mm3 (0.0-0.4); Eosinophils % 4.4 % (0.1-12.0); Hematocrit 35.2 % (42.0-52.0); Hemoglobin 12.4 g/dL (14.1-18.0); Lymphocytes # 0.6 K/mm3 (0.7-4.5); Lymphocytes % 28.4 % (10-50); Mean Corpuscular HGB Conc 35.4 g/dL (31.8-35.4); Mean Corpuscular Hemoglobin 33.3 pg (27.0-31.2); Mean Corpuscular Volume 94.2 fl (80-94); Mean Platelet Volume 8.8 fl (7.4-10.4); Monocytes # 0.3 K/mm3 (0.1-1.0); Monocytes % 14.5 % (1.7-9.3); Platelet Count 112 K/mm3 (142-424); Red Blood Count 3.74 M/mm3 (4.60-6.20); Red Cell Distribution Width 15.6 % (11.5-17.5); White Blood Count 1.9 K/mm3 (4.8-10.8)
[2021-10-01 09:26] LABS: Chloride 97 mmol/L (98-107); Sodium 135 mmol/L (136-145)
[2021-10-01 09:28] LABS: Blood Urea Nitrogen 16 mg/dl (9-20); Creatinine Clearance Estimated 97 mL/min (50-200); Estimated Glomerular Filt Rate 66 ml/min (>60); GFR (African American) 80 ML/MIN (>60)
[2021-10-01 09:29] LABS: Alanine Aminotransferase 35 U/L (12-78); Albumin Level 4.2 g/dl (3.5-5.0); Albumin/Globulin Ratio 1.9 (1.1-1.8); Alkaline Phosphatase 88 U/L (38-126); Aspartate Amino Transferase 30 U/L (17-59); Bilirubin,Total 0.5 mg/dl (0.2-1.3); Calcium 9.3 mg/dl (8.4-10.2); Carbon Dioxide 33 mmol/L (22.0-30.0); Globulin 2.2 g/dL (1.3-3.2); Glucose 151 mg/dl (74-100); Total Protein,Serum 6.4 g/dl (6.3-8.2)
--- NOTE | 2021-10-01 10:38 | PC.NURSE ---
1030 - SPOKE WITH DR SCHMIDT'S RN, KARIME ALCANTARA WHO STATED THAT PT WOULD NOT BE RETURNING TO GET VELCADE TODAY.
== END 2021-10-01 09:15 | disposition home or self-care (01) ==
LOC: INF 08:46
PROVIDERS: PCP Family Medicine; Visit Provider Internal Medicine Medical Oncology
DX: C90.00 Multiple myeloma not having achieved remission (principal)
CPT/HCPCS: 80053; 85025

== ENCOUNTER 2021-11-12 08:13 | Outpatient (CLI) | payer MEDICARE, BC, SELFPAY ==
[2021-11-12 08:19] VITALS: BMI 32.6
--- NOTE | 2021-11-12 08:32 | PC.NURSE ---
11/12/21 0820 pt here for blood to be drawn prior to onco md appt today. Wanda Spann RN accessed pt rt ac to obtain needed blood for labs, specimen sent to lab for analysis. pt ambulated down to [facility] clinic for appt.
[2021-11-12 08:39] LABS: Basophils % 1.4 % (0.1-2.0); Eosinophils # 0.1 K/mm3 (0.0-0.4); Eosinophils % 4.1 % (0.1-12.0); Lymphocytes # 0.6 K/mm3 (0.7-4.5); Lymphocytes % 18.8 % (10-50); Mean Corpuscular HGB Conc 34.2 g/dL (31.8-35.4); Mean Corpuscular Hemoglobin 33.4 pg (27.0-31.2); Mean Corpuscular Volume 97.6 fl (80-94); Mean Platelet Volume 8.8 fl (7.4-10.4); Monocytes # 0.3 K/mm3 (0.1-1.0); Monocytes % 8.1 % (1.7-9.3); Neutrophils # 2.1 K/mm3 (1.8-7.8); Neutrophils % 67.6 % (37.0-80.0); Platelet Count 180 K/mm3 (142-424); Red Cell Distribution Width 15.4 % (11.5-17.5); White Blood Count 3.1 K/mm3 (4.8-10.8)
[2021-11-12 08:49] LABS: Alanine Aminotransferase 34 U/L (12-78); Albumin Level 4.5 g/dl (3.5-5.0); Albumin/Globulin Ratio 1.9 (1.1-1.8); Alkaline Phosphatase 98 U/L (38-126); Anion Gap 11.1 mEq/L (5-15); Aspartate Amino Transferase 34 U/L (17-59); Bilirubin,Total 0.6 mg/dl (0.2-1.3); Blood Urea Nitrogen 13 mg/dl (9-20); Calcium 9.4 mg/dl (8.4-10.2); Carbon Dioxide 34 mmol/L (22.0-30.0); Chloride 90 mmol/L (98-107); Creatinine Clearance Estimated 95 mL/min (50-200); Estimated Glomerular Filt Rate 66 ml/min (>60); GFR (African American) 80 ML/MIN (>60); Globulin 2.4 g/dL (1.3-3.2); Glucose 202 mg/dl (74-100); Potassium 4.1 mmoL/L (3.5-5.1); Sodium 131 mmol/L (136-145); Total Protein,Serum 6.9 g/dl (6.3-8.2)
[2021-11-16 13:45] LABS: Immunoglobulin A, Qn 69 mg/dL (61-437); Immunoglobulin G, Qn 826 mg/dL (603-1613); Immunoglobulin M, Qn 23 mg/dL (15-143)
[2021-12-18 11:40] LABS: Albumin 4.1; Alpha-1-Globulin 0.2; Alpha-2-Globulin 0.6; Free Kappa Lt Chains 17.4; Free Lambda Lt Chains 10.7; Gamma Globulin 0.7; Protein, Total 6.5
== END 2021-11-12 08:30 | disposition home or self-care (01) ==
LOC: INF 08:14
PROVIDERS: PCP Family Medicine; Visit Provider Internal Medicine Medical Oncology
DX: C90.00 Multiple myeloma not having achieved remission (principal)
CPT/HCPCS: 80053; 82784; 83883; 84155; 84165; 85025; 86334

== ENCOUNTER → 2021-12-01 07:09 | Outpatient (CLI) | payer MEDICARE, BC, SELFPAY ==
[2021-12-01 08:58] LABS: Chloride 93 mmol/L (98-107); Potassium 4.4 mmoL/L (3.5-5.1); Sodium 133 mmol/L (136-145)
[2021-12-01 09:00] LABS: Alanine Aminotransferase 32 U/L (12-78); Aspartate Amino Transferase 34 U/L (17-59); Blood Urea Nitrogen 14 mg/dl (9-20); Estimated Glomerular Filt Rate 74 ml/min (>60); GFR (African American) 89 ML/MIN (>60)
[2021-12-01 09:01] LABS: Albumin Level 4.8 g/dl (3.5-5.0); Albumin/Globulin Ratio 2.3 (1.1-1.8); Alkaline Phosphatase 102 U/L (38-126); Anion Gap 12.4 mEq/L (5-15); Bilirubin,Total 0.6 mg/dl (0.2-1.3); Calcium 9.6 mg/dl (8.4-10.2); Carbon Dioxide 32 mmol/L (22.0-30.0); Chol/HDL Ratio 4.7 (1-3.5); Cholesterol 108 mg/dl (140-200); Globulin 2.1 g/dL (1.3-3.2); Glucose 168 mg/dl (74-100); HDL Cholesterol 23 mg/dl (40-60); Total Protein,Serum 6.9 g/dl (6.3-8.2); Triglycerides 213 mg/dl (30-150); VLDL Cholesterol 43 mg/dL (0-40)
[2021-12-01 09:12] LABS: Direct LDL Cholesterol 57.74 mg/dL (100-129)
[2021-12-01 09:32] LABS: Thyroid Stimulating Hormone 4.23 uIU/mL (0.465-4.68)
[2021-12-01 11:11] LABS: Hemoglobin A1C 6.1 % (4.0-6.0)
[2021-12-01 12:36] LABS: Prostate Specific Ag Screen 3.8 ng/ml (0.0-4.0)
== END ==
PROVIDERS: PCP Family Medicine; Visit Provider Family Medicine
DX: I10 Essential (primary) hypertension (principal); I25.810 Atherosclerosis of coronary artery bypass graft(s) without angina pectoris; E78.5 Hyperlipidemia, unspecified; E03.9 Hypothyroidism, unspecified; R73.9 Hyperglycemia, unspecified; R97.20 Elevated prostate specific antigen [PSA]; Z12.5 Encounter for screening for malignant neoplasm of prostate
CPT/HCPCS: 36415; 80053; 80061; 83036; 84443; G0103

== ENCOUNTER 2021-12-30 08:16 | Outpatient (CLI) | payer MEDICARE, BC, SELFPAY ==
[2021-12-30 08:21] VITALS: BMI 33.6
[2021-12-30 08:37] LABS: Basophils # 0.1 K/mm3 (0-0.2); Basophils % 1.7 % (0.1-2.0); Eosinophils # 0.3 K/mm3 (0.0-0.4); Eosinophils % 6.9 % (0.1-12.0); Hematocrit 43.5 % (42.0-52.0); Hemoglobin 14.4 g/dL (14.1-18.0); Lymphocytes # 0.7 K/mm3 (0.7-4.5); Lymphocytes % 17.9 % (10-50); Mean Corpuscular HGB Conc 33.2 g/dL (31.8-35.4); Mean Corpuscular Volume 99.5 fl (80-94); Monocytes # 0.3 K/mm3 (0.1-1.0); Monocytes % 8.1 % (1.7-9.3); Neutrophils # 2.6 K/mm3 (1.8-7.8); Neutrophils % 65.3 % (37.0-80.0); Platelet Count 157 K/mm3 (142-424); Red Blood Count 4.37 M/mm3 (4.60-6.20); Red Cell Distribution Width 14.4 % (11.5-17.5)
[2021-12-30 08:46] LABS: Albumin Level 4.7 g/dl (3.5-5.0); Alkaline Phosphatase 77 U/L (38-126); Anion Gap 12.2 mEq/L (5-15); Bilirubin,Total 0.7 mg/dl (0.2-1.3); Blood Urea Nitrogen 13 mg/dl (9-20); Calcium 9.1 mg/dl (8.4-10.2); Carbon Dioxide 32 mmol/L (22.0-30.0); Chloride 90 mmol/L (98-107); Creatinine Clearance Estimated 108 mL/min (50-200); Estimated Glomerular Filt Rate 74 ml/min (>60); GFR (African American) 89 ML/MIN (>60); Globulin 2.4 g/dL (1.3-3.2); Glucose 170 mg/dl (74-100); Potassium 4.2 mmoL/L (3.5-5.1); Sodium 130 mmol/L (136-145); Total Protein,Serum 7.1 g/dl (6.3-8.2)
[2021-12-30 09:40] LABS: Alanine Aminotransferase 37 U/L (12-78); Aspartate Amino Transferase 44 U/L (17-59)
[2021-12-31 14:21] LABS: Albumin 4.4 g/dL (2.9-4.4); Alpha-1-Globulin 0.2 g/dL (0.0-0.4); Alpha-2-Globulin 0.6 g/dL (0.4-1.0); Gamma Globulin 0.8 g/dL (0.4-1.8); Protein, Total 6.7 g/dL (6.0-8.5)
[2021-12-31 15:11] LABS: Immunoglobulin A, Qn 69 mg/dL (61-437); Immunoglobulin G, Qn 832 mg/dL (603-1613); Immunoglobulin M, Qn 24 mg/dL (15-143)
[2022-02-03 20:48] LABS: Free Lambda Lt Chains 11.4
== END 2021-12-30 08:27 | disposition home or self-care (01) ==
LOC: INF 08:17
PROVIDERS: PCP Family Medicine; Visit Provider Internal Medicine Medical Oncology
DX: C90.00 Multiple myeloma not having achieved remission (principal)
CPT/HCPCS: 80053; 82784; 83883; 84155; 84165; 85025; 86334

== ENCOUNTER 2022-04-19 08:33 | Outpatient (CLI) | payer MEDICARE, BC, SELFPAY ==
[2022-04-19 08:35] VITALS: BMI 33.9
--- NOTE | 2022-04-19 08:52 | PC.NURSE ---
0852-collect labs via peripheral stick; pt d/c home.
[2022-04-19 09:08] LABS: Basophils # 0.1 K/mm3 (0-0.2); Basophils % 2.3 % (0.1-2.0); Eosinophils # 0.1 K/mm3 (0.0-0.4); Hematocrit 40.5 % (42.0-52.0); Hemoglobin 14.4 g/dL (14.1-18.0); Lymphocytes # 0.5 K/mm3 (0.7-4.5); Lymphocytes % 13.9 % (10-50); Mean Corpuscular HGB Conc 35.7 g/dL (31.8-35.4); Mean Corpuscular Hemoglobin 34.1 pg (27.0-31.2); Mean Corpuscular Volume 95.5 fl (80-94); Mean Platelet Volume 7.6 fl (7.4-10.4); Monocytes # 0.3 K/mm3 (0.1-1.0); Monocytes % 7.7 % (1.7-9.3); Neutrophils # 2.5 K/mm3 (1.8-7.8); Neutrophils % 73.2 % (37.0-80.0); Platelet Count 159 K/mm3 (142-424); Red Blood Count 4.24 M/mm3 (4.60-6.20); Red Cell Distribution Width 14.5 % (11.5-17.5); White Blood Count 3.4 K/mm3 (4.8-10.8)
[2022-04-19 09:34] LABS: Alanine Aminotransferase 30 U/L (12-78); Albumin Level 4.4 g/dl (3.5-5.0); Albumin/Globulin Ratio 1.7 (1.1-1.8); Alkaline Phosphatase 84 U/L (38-126); Anion Gap 10.1 mEq/L (5-15); Aspartate Amino Transferase 33 U/L (17-59); Bilirubin,Total 0.6 mg/dl (0.2-1.3); Blood Urea Nitrogen 14 mg/dl (9-20); Calcium 9.4 mg/dl (8.4-10.2); Carbon Dioxide 32 mmol/L (22.0-30.0); Chloride 94 mmol/L (98-107); Creatinine Clearance Estimated 99 mL/min (50-200); Estimated Glomerular Filt Rate 66 ml/min (>60); GFR (African American) 80 ML/MIN (>60); Globulin 2.6 g/dL (1.3-3.2); Glucose 268 mg/dl (74-100); Potassium 4.1 mmoL/L (3.5-5.1); Sodium 132 mmol/L (136-145)
[2022-04-20 14:21] LABS: Albumin 4.4 g/dL (2.9-4.4); Alpha-1-Globulin 0.2 g/dL (0.0-0.4); Alpha-2-Globulin 0.6 g/dL (0.4-1.0); Gamma Globulin 0.9 g/dL (0.4-1.8); Protein, Total 6.9 g/dL (6.0-8.5)
[2022-04-20 15:10] LABS: Immunoglobulin A, Qn 61 mg/dL (61-437); Immunoglobulin G, Qn 1017 mg/dL (603-1613); Immunoglobulin M, Qn 21 mg/dL (15-143)
[2022-05-05 08:10] LABS: Free Kappa Lt Chains 29.2; Free Lambda Lt Chains 9.7
== END 2022-04-19 08:55 | disposition home or self-care (01) ==
LOC: INF 08:34
PROVIDERS: PCP Family Medicine; Visit Provider Internal Medicine Medical Oncology
DX: C90.00 Multiple myeloma not having achieved remission (principal)
CPT/HCPCS: 36415; 80053; 82784; 83883; 84155; 84165; 85025; 86334

== ENCOUNTER → 2022-05-18 08:02 | Outpatient (CLI) | payer MEDICARE, BC, SELFPAY ==
[2022-05-18 08:44] LABS: Hemoglobin A1C 6.5 % (4.0-6.0)
[2022-05-18 09:25] LABS: Chloride 92 mmol/L (98-107); Potassium 4.4 mmoL/L (3.5-5.1); Sodium 130 mmol/L (136-145)
[2022-05-18 09:28] LABS: Alanine Aminotransferase 35 U/L (12-78); Albumin Level 4.6 g/dl (3.5-5.0); Albumin/Globulin Ratio 1.8 (1.1-1.8); Alkaline Phosphatase 87 U/L (38-126); Anion Gap 12.4 mEq/L (5-15); Aspartate Amino Transferase 41 U/L (17-59); Blood Urea Nitrogen 15 mg/dl (9-20); Calcium 9.5 mg/dl (8.4-10.2); Carbon Dioxide 30 mmol/L (22.0-30.0); Chol/HDL Ratio 4.5 (1-3.5); Cholesterol 116 mg/dl (140-200); Estimated Glomerular Filt Rate 66 ml/min (>60); GFR (African American) 80 ML/MIN (>60); Globulin 2.5 g/dL (1.3-3.2); Glucose 225 mg/dl (74-100); HDL Cholesterol 26 mg/dl (40-60); Total Protein,Serum 7.1 g/dl (6.3-8.2); Triglycerides 260 mg/dl (30-150); VLDL Cholesterol 52 mg/dL (0-40)
[2022-05-18 09:41] LABS: Direct LDL Cholesterol 51.15 mg/dL (100-129)
[2022-05-18 09:59] LABS: Thyroid Stimulating Hormone 4.18 uIU/mL (0.465-4.68)
== END ==
PROVIDERS: PCP Family Medicine; Visit Provider Family Medicine
DX: E03.9 Hypothyroidism, unspecified (principal); I10 Essential (primary) hypertension; R73.9 Hyperglycemia, unspecified; E78.5 Hyperlipidemia, unspecified
CPT/HCPCS: 36415; 80053; 80061; 83036; 84443

== ENCOUNTER 2022-08-10 08:08 | Outpatient (CLI) | payer MEDICARE, BC, SELFPAY ==
[2022-08-10 08:12] VITALS: BMI 34.8
--- NOTE | 2022-08-10 08:20 | PC.NURSE ---
0820-collected labs via peripheral stick pt d/c home.
[2022-08-10 08:38] LABS: Basophils # 0.1 K/mm3 (0-0.2); Basophils % 2.1 % (0.1-2.0); Eosinophils # 0.1 K/mm3 (0.0-0.4); Eosinophils % 3.4 % (0.1-12.0); Hematocrit 40.8 % (42.0-52.0); Lymphocytes # 0.7 K/mm3 (0.7-4.5); Lymphocytes % 19.7 % (10-50); Mean Corpuscular HGB Conc 34.3 g/dL (31.8-35.4); Mean Corpuscular Hemoglobin 33.5 pg (27.0-31.2); Mean Corpuscular Volume 97.4 fl (80-94); Mean Platelet Volume 7.4 fl (7.4-10.4); Monocytes # 0.4 K/mm3 (0.1-1.0); Monocytes % 11.1 % (1.7-9.3); Neutrophils # 2.4 K/mm3 (1.8-7.8); Neutrophils % 63.7 % (37.0-80.0); Platelet Count 194 K/mm3 (142-424); Red Blood Count 4.19 M/mm3 (4.60-6.20); Red Cell Distribution Width 14.4 % (11.5-17.5); White Blood Count 3.7 K/mm3 (4.8-10.8)
[2022-08-10 08:47] LABS: Chloride 90 mmol/L (98-107); Sodium 132 mmol/L (136-145)
[2022-08-10 08:48] LABS: Potassium 4.3 mmoL/L (3.5-5.1)
[2022-08-10 08:50] LABS: Alanine Aminotransferase 31 U/L (12-78); Albumin Level 4.5 g/dl (3.5-5.0); Albumin/Globulin Ratio 1.6 (1.1-1.8); Alkaline Phosphatase 98 U/L (38-126); Anion Gap 14.3 mEq/L (5-15); Aspartate Amino Transferase 35 U/L (17-59); Bilirubin,Total 0.7 mg/dl (0.2-1.3); Blood Urea Nitrogen 17 mg/dl (9-20); Carbon Dioxide 32 mmol/L (22.0-30.0); Creatinine Clearance Estimated 92 mL/min (50-200); Estimated Glomerular Filt Rate 60 ml/min (>60); GFR (African American) 72 ML/MIN (>60); Globulin 2.9 g/dL (1.3-3.2); Total Protein,Serum 7.4 g/dl (6.3-8.2)
[2022-08-10 08:51] LABS: Calcium 8.8 mg/dl (8.4-10.2); Glucose 302 mg/dl (74-100)
[2022-08-11 15:24] LABS: Albumin 4.2 g/dL (2.9-4.4); Alpha-1-Globulin 0.2 g/dL (0.0-0.4); Alpha-2-Globulin 0.6 g/dL (0.4-1.0); Gamma Globulin 1.3 g/dL (0.4-1.8); Immunoglobulin A, Qn 56 mg/dL (61-437); Immunoglobulin G, Qn 1452 mg/dL (603-1613); Immunoglobulin M, Qn 20 mg/dL (15-143); Protein, Total 7.1 g/dL (6.0-8.5)
[2022-09-15 08:15] LABS: Free Kappa Lt Chains 77.5; Free Lambda Lt Chains 10.8
== END 2022-08-10 08:22 | disposition home or self-care (01) ==
LOC: INF 08:11
PROVIDERS: PCP Family Medicine; Visit Provider Internal Medicine Medical Oncology
DX: C90.00 Multiple myeloma not having achieved remission (principal)
CPT/HCPCS: 36415; 80053; 82784; 83883; 84155; 84165; 85025; 86334

== ENCOUNTER 2022-12-08 07:47 | Outpatient (CLI) | payer MEDICARE, BC, SELFPAY ==
[2022-12-08 07:58] VITALS: BMI 35.9
[2022-12-08 08:22] LABS: Basophils % 1.3 % (0.1-2.0); Eosinophils # 0.1 K/mm3 (0.0-0.4); Hemoglobin 13.5 g/dL (14.1-18.0); Lymphocytes # 0.6 K/mm3 (0.7-4.5); Lymphocytes % 17.7 % (10-50); Mean Corpuscular HGB Conc 33.8 g/dL (31.8-35.4); Mean Corpuscular Hemoglobin 32.2 pg (27.0-31.2); Mean Corpuscular Volume 95.2 fl (80-94); Mean Platelet Volume 7.8 fl (7.4-10.4); Monocytes # 0.4 K/mm3 (0.1-1.0); Monocytes % 11.9 % (1.7-9.3); Neutrophils # 2.2 K/mm3 (1.8-7.8); Neutrophils % 66.1 % (37.0-80.0); Platelet Count 194 K/mm3 (142-424); Red Cell Distribution Width 14.9 % (11.5-17.5); White Blood Count 3.3 K/mm3 (4.8-10.8)
[2022-12-08 08:32] LABS: Chloride 94 mmol/L (98-107); Potassium 4.3 mmoL/L (3.5-5.1); Sodium 130 mmol/L (136-145)
[2022-12-08 08:34] LABS: Blood Urea Nitrogen 17 mg/dl (9-20)
[2022-12-08 08:35] LABS: Alanine Aminotransferase 37 U/L (12-78); Albumin Level 4.5 g/dl (3.5-5.0); Albumin/Globulin Ratio 1.1 (1.1-1.8); Alkaline Phosphatase 87 U/L (38-126); Anion Gap 9.3 mEq/L (5-15); Aspartate Amino Transferase 43 U/L (17-59); Bilirubin,Total 0.9 mg/dl (0.2-1.3); Calcium 8.9 mg/dl (8.4-10.2); Carbon Dioxide 31 mmol/L (22.0-30.0); Cholesterol 118 mg/dl (140-200); Creatinine Clearance Estimated 76 mL/min (50-200); Estimated Glomerular Filt Rate 46 ml/min (>60); GFR (African American) 56 ML/MIN (>60); Globulin 4.2 g/dL (1.3-3.2); Glucose 210 mg/dl (74-100); Total Protein,Serum 8.7 g/dl (6.3-8.2); Triglycerides 244 mg/dl (30-150); VLDL Cholesterol 49 mg/dL (0-40)
[2022-12-08 08:42] LABS: Chol/HDL Ratio 4.9 (1-3.5); HDL Cholesterol 24 mg/dl (40-60)
[2022-12-08 08:46] LABS: Direct LDL Cholesterol 55.25 mg/dL (100-129)
[2022-12-08 09:12] LABS: Creatinine,Urine Random 90 mg/dL (Not Estab.)
[2022-12-08 09:13] LABS: Microalbumin/Creatinine Ratio 12.6
[2022-12-08 09:17] LABS: Thyroid Stimulating Hormone 5.31 uIU/mL (0.465-4.68)
[2022-12-09 15:20] LABS: Albumin 4.2 g/dL (2.9-4.4); Alpha-1-Globulin 0.2 g/dL (0.0-0.4); Alpha-2-Globulin 0.6 g/dL (0.4-1.0); Gamma Globulin 2.1 g/dL (0.4-1.8); Protein, Total 7.9 g/dL (6.0-8.5)
[2022-12-10 09:29] LABS: Immunoglobulin A, Qn 51 mg/dL (61-437); Immunoglobulin G, Qn 2375 mg/dL (603-1613); Immunoglobulin M, Qn 19 mg/dL (15-143)
[2022-12-10 21:37] LABS: Free Kappa Lt Chains 110.1; Free Lambda Lt Chains 8.3
== END 2022-12-08 08:10 | disposition home or self-care (01) ==
LOC: INF 07:49
PROVIDERS: PCP Family Medicine; Visit Provider Internal Medicine Medical Oncology
DX: C90.00 Multiple myeloma not having achieved remission (principal); Z79.899 Other long term (current) drug therapy; Z45.2 Encounter for adjustment and management of vascular access device
CPT/HCPCS: 36415; 80053; 80061; 82043; 82570; 82784; 83036; 83883; 84155; 84165; 84443; 85025; 86334

== ENCOUNTER → 2023-01-19 14:17 | Outpatient (CLI) | payer MEDICARE, BC, SELFPAY ==
--- NOTE | 2023-01-19 14:25 | CT_ITS ---
FINAL REPORT CLINICAL HISTORY: MULTIPLE MYELOMA CT LOW DOSE MYELOMA SCAN FINDINGS: CT HEAD, NECK, CHEST, ABDOMEN, PELVIS AND LOWER EXTREMITIES WITHOUT CONTRAST Axial CT images were performed from the head through the ankles utilizing a low-dose protocol. Coronal reformatted images were submitted. Head: There is no mass effect or midline shift. There is no acute hemorrhage. There is atrophy. There are chronic findings in the bilateral maxillary sinuses. Chest: There is no lung mass or consolidation. There is a moderate to large hiatal hernia. Abdomen and pelvis: Noncontrast evaluation of the solid abdominal organs are without acute abnormality. The spleen is enlarged up to 21 cm. No evidence of bowel obstruction. The prostate is enlarged. Osseous structures: No lytic lesions or acute osseous abnormality. There is multi joint degenerative disease. There is multilevel degenerative disc disease. IMPRESSION: No convincing lytic lesions. Splenomegaly. Prostatomegaly. Reviewed, Interpreted and Dictated by Harriet Lau MD Transcribed by Khurram Jordan Authenticated and [facility]
== END ==
PROVIDERS: PCP Internal Medicine; Visit Provider Internal Medicine Medical Oncology
DX: C90.00 Multiple myeloma not having achieved remission (principal)
CPT/HCPCS: 76497

== ENCOUNTER → 2023-02-18 09:49 | Outpatient (CLI) | payer MEDICARE, BC, SELFPAY ==
--- NOTE | 2023-02-18 09:54 | XR_ITS ---
FINAL REPORT CLINICAL HISTORY: bilateral knee pain FINDINGS: Right knee Three views were obtained. There is no acute fracture or dislocation. There are mild degenerative changes. Meniscal calcification is identified. There is a small joint effusion. There are loose bodies anteriorly and posteriorly. Vascular calcification is noted. IMPRESSION: Degenerative and chronic appearing findings. Loose bodies as above. Reviewed, Interpreted and Dictated by Marlon Lazo III, MD Transcribed by Geetha Chew Authenticated and [facility]
--- NOTE | 2023-02-18 09:54 | XR_ITS ---
FINAL REPORT CLINICAL HISTORY: bilateral knee pain FINDINGS: Left knee Three views were obtained. There is no acute fracture or dislocation. There are mild degenerative changes. Vascular calcification is identified. IMPRESSION: Mild degenerative changes. Reviewed, Interpreted and Dictated by Marlon Lazo III, MD Transcribed by Geetha Chew Authenticated and [facility]
== END ==
PROVIDERS: PCP Family Medicine; Visit Provider Orthopaedic Surgery
DX: M25.561 Pain in right knee (principal); M25.562 Pain in left knee
CPT/HCPCS: 73562

== ENCOUNTER → 2023-02-25 12:09 | Outpatient (CLI) | payer MEDICARE, BC, SELFPAY ==
--- NOTE | 2023-02-25 12:13 | XR_ITS ---
FINAL REPORT CLINICAL HISTORY: left foot pain FINDINGS: LEFT FOOT: Three views of the left foot were obtained. There is no acute fracture or dislocation. There are moderate degenerative changes the 1st metatarsophalangeal joint. Mild degenerative changes are seen elsewhere in the foot. IMPRESSION: Degenerative changes with no acute bony abnormality. Reviewed, Interpreted and Dictated by Marlon Lazo III, MD Transcribed by Nicole Diaz Authenticated and [facility]
--- NOTE | 2023-02-25 12:13 | XR_ITS ---
FINAL REPORT CLINICAL HISTORY: right foot pain COMPARISON: 01/01/2020 FINDINGS: RIGHT FOOT: Three views of the right foot were obtained. There is no acute fracture or dislocation. There is severe degenerative change at the 1st metatarsophalangeal joint which has progressed. Mild degenerative changes are seen elsewhere. Calcaneal spur is present. IMPRESSION: Degenerative changes as above with no acute fracture. Reviewed, Interpreted and Dictated by Marlon Lazo III, MD Transcribed by Nicole Diaz Authenticated and [facility]
== END ==
PROVIDERS: PCP Family Medicine; Visit Provider Orthopaedic Surgery
DX: M79.671 Pain in right foot (principal); M79.672 Pain in left foot
CPT/HCPCS: 73630

== ENCOUNTER → 2023-03-07 12:08 | Outpatient (CLI) | payer MEDICARE, BC, SELFPAY ==
--- NOTE | 2023-03-07 12:31 | US_ITS ---
FINAL REPORT CLINICAL HISTORY: decrease pulse, cold feet, DM, HTN, HLD, MT, CABG FINDINGS: ANKLE/BRACHIAL INDICES FINDINGS: Pressure indices are as follows: RIGHT LOWER EXTREMITY: Ankle brachial pressure index: 1.4 Comments: Normal LEFT LOWER EXTREMITY: Ankle brachial pressure index: 1.6 Comments: Normal IMPRESSION: No evidence of significant obstructive peripheral vascular disease of the lower extremities. Reviewed, Interpreted and Dictated by Katlin Chiang MD Transcribed by Khurram Jordan Authenticated and [facility]
--- NOTE | 2023-03-07 12:34 | CT_ITS ---
FINAL REPORT TECHNIQUE: Thin section axial CT images were obtained utilizing a CT angiogram protocol. Coronal and sagittal reformatted images were submitted. This study was performed with techniques to keep radiation doses as low as reasonably achievable (ALARA). Individualized dose reduction techniques using automated exposure control or adjustment of mA and/or kV according to the patient's size were employed. CLINICAL HISTORY: Decreased pulses- bilat lower extremities FINDINGS: CTA bilateral lower extremities The distal aorta and iliac arteries demonstrate mild plaque disease without stenosis. The bilateral common femoral and superficial femoral arteries are widely patent. Contrast opacification is suboptimal of the popliteal and calf vessels probably due to slow flow. Questionable wall thickening of the mid sigmoid colon with moderate diverticulosis. Mild prostatomegaly. IMPRESSION: No evidence of significant aortoiliac or femoral disease. Distal outflow not adequately assessed due to poor contrast opacification. Mild thickening of the mid sigmoid colon. Recommend colonoscopy if not recently performed. Reviewed, Interpreted and Dictated by Katlin Chiang MD Transcribed by Khurram Jordan Authenticated and [facility]
[2023-03-07 13:01] LABS: Blood Urea Nitrogen 24 mg/dl (9-20); Estimated Glomerular Filt Rate 40 ml/min (>60); GFR (African American) 48 ML/MIN (>60)
== END ==
PROVIDERS: PCP Family Medicine; Visit Provider Orthopaedic Surgery
DX: I73.9 Peripheral vascular disease, unspecified (principal); R09.89 Other specified symptoms and signs involving the circulatory and respiratory systems
CPT/HCPCS: 36415; 73701; 82565; 84520; 93923; Q9967

== ENCOUNTER 2023-03-17 11:07 | Emergency (ER) | payer MEDICARE, BC, SELFPAY ==
[2023-03-17] VITALS (8 sets, daily range): BP systolic 106–122; BP diastolic 54–66; PULSE 63–81; RESP 16–18; TEMP 36.5–36.6; O2SAT 95–99; BMI 33.2
--- NOTE | 2023-03-17 11:20 | HMH.EDGENADL ---
Discharge Plan Disposition Patient Disposition: Home, Self-Care Condition: Good Chief Complaint: Head Injury Prescriptions Prescriptions: No Action ropinirole 0.25 mg tablet 0.5 mg PO BID tamsulosin 0.4 mg capsule 0.4 mg PO DAILY losartan 100 mg tablet 100 mg PO DAILY Qty: 30 5RF Jardiance 10 mg tablet 10 mg PO DAILY atorvastatin 40 mg tablet 40 mg PO HS omeprazole 40 mg capsule,delayed release(DR/EC) 40 mg PO DAILY Label Comments: TAKE ONE CAPSULE BY MOUTH EVERY DAY dexamethasone 4 mg tablet 40 mg PO QWEEK Label Comments: take 10 tablets BY MOUTH one time each WEEK ON DAYS 1, 8, AND 15 of a 28 DAY CYCLE prochlorperazine maleate 10 mg tablet 10 mg PO Q6HP PRN (Reason: Nausea) Label Comments: TAKE ONE TABLET BY MOUTH EVERY 4 HOURS NEEDED FOR NAUSEA AND VOMITING Revlimid 25 mg capsule 25 mg PO DAILY levothyroxine 75 mcg tablet 75 mcg PO DAILY hydrochlorothiazide 25 mg tablet 25 mg PO DAILY Qty: 30 4RF furosemide 20 mg tablet See Rx Instructions .ROUTE .COMPLEX Qty: 15 11RF Dose Instruction: TAKE ONE TABLET BY MOUTH every other DAY ON tuesday, tuesday, AND tuesday ONLY Rx Instructions: TAKE ONE TABLET BY MOUTH every other DAY ON tuesday, tuesday, AND tuesday ONLY rivaroxaban 2.5 MG tablet 2.5 mg PO BID amitriptyline 50 MG tablet 75 mg PO HS bisoprolol fumarate 5 MG tablet 5 mg PO DAILY Referrals Follow up/Referrals: Kai Shea MD [Primary Care Provider] - See instructions Clinical Impressions Clinical Impression: Laceration of face, Fracture of nasal bones Instructions Patient Instructions: How to Care for a Laceration After Repair, Nose Fracture, Closed Head Injury Print Language Print Language: Libyan Discharge ED Provider: Juan Combs General Adult HPI General Chief complaint: Head Injury Stated complaint: Trauma Time Seen by Provider: 03/17/23 13:30 History of Present Illness HPI narrative: Patient presents to the emergency department with a traumatic injury to his face and head. The patient states that he was attempting to load a cow in a trailer when he was holding onto the gate of the trailer and the other part of the fence. He states that the cow kicked and the gate struck him in the face. He states that he has very poor recollection of the event. It took him to his knees and he has headache, neck pain and facial pain. He states his last tetanus shot was greater than 5 years ago. He denies any chest trauma, abdominal trauma or back trauma. Denies any injuries to his extremity Related Data Home Medications Medication Instructions Recorded Confirmed atorvastatin 40 mg tablet 40 mg PO HS Cholesterol 12/20/17 02/25/23 tamsulosin 0.4 mg capsule 0.4 mg PO DAILY prostate 07/03/19 02/25/23 amitriptyline 50 mg tablet 75 mg PO HS Depression 07/02/20 02/25/23 rivaroxaban 2.5 mg tablet 2.5 mg PO BID Blood thinner 07/02/20 02/25/23 ropinirole 0.25 mg tablet 0.5 mg PO BID restless leg syndrome 07/02/20 02/25/23 bisoprolol fumarate 5 mg tablet 5 mg PO DAILY bp 01/08/21 02/25/23 omeprazole 40 mg capsule,delayed 40 mg PO DAILY GERD 02/16/21 02/25/23 release dexamethasone 4 mg tablet 40 mg PO QWEEK Supplement 08/17/21 02/25/23 lenalidomide 25 mg capsule 25 mg PO DAILY myeloma 08/17/21 02/25/23 (Revlimid) prochlorperazine maleate 10 mg 10 mg PO Q6HP PRN Nausea 08/17/21 02/25/23 tablet levothyroxine 75 mcg tablet 75 mcg PO DAILY 12/16/22 02/25/23 empagliflozin 10 mg tablet 10 mg PO DAILY 01/21/23 02/25/23 (Jardiance) Previous Rx's Medication Instructions Recorded hydrochlorothiazide 25 mg tablet 25 mg PO DAILY CHF #30 tabs 04/12/18 losartan 100 mg tablet 100 mg PO DAILY #30 tabs 02/16/22 furosemide 20 mg tablet See Rx Instructions .Route 05/26/22 .COMPLEX #15 tabs Allergies Allergy/AdvReac Type Severity Reaction Status Date / [place]
--- NOTE | 2023-03-17 11:23 | CT_ITS ---
FINAL REPORT CLINICAL HISTORY: trauma, neck pain FINDINGS: Axial CT images of the cervical spine were obtained without contrast. Sagittal and coronal reformatted images were also obtained. This study was performed with techniques to keep radiation doses as low as reasonably achievable (ALARA). Individualized dose reduction techniques using automated exposure control or adjustment of mA and/or kV according to the patient''s size were employed. There is no evidence of fracture or dislocation. The bony alignment is normal. There are mild and moderate degenerative changes with osteophytes. There are chronic calcifications posterior to the C5 and C6 spinous processes. Carotid artery calcifications are identified. There is no evidence of canal stenosis. No paraspinous soft tissue abnormality is seen. Limited images of the upper thorax are unremarkable. IMPRESSION: No fracture or acute bony abnormality identified. Degenerative changes as detailed above. Reviewed, Interpreted and Dictated by Marlon Lazo III, MD Transcribed by Geetha Chew Authenticated and [facility]
--- NOTE | 2023-03-17 11:23 | CT_ITS ---
FINAL REPORT TECHNIQUE: Axial CT images of the face were obtained without contrast. Coronal reformatted images were also obtained. This study was performed with techniques to keep radiation doses as low as reasonably achievable, (ALARA). Individualized dose reduction techniques using automated exposure control or adjustment of mA and/or kV according to the patient''s size were employed. CLINICAL HISTORY: trauma lac on forehead above left eyebrow FINDINGS: There are bilateral nasal bone fractures. There is mild inward displacement of the left nasal bone fracture. The orbits are intact.The globes are intact.No sinus fluid levels are identified. There are retention cysts or polyps in the maxillary sinuses. Nasal soft tissue swelling is seen. IMPRESSION: Bilateral nasal bone fractures. Reviewed, Interpreted and Dictated by Marlon Lazo III, MD Transcribed by Geetha Chew Authenticated and [facility]
--- NOTE | 2023-03-17 11:23 | CT_ITS ---
FINAL REPORT CLINICAL HISTORY: trauma, LOC COMPARISON: 12/29/2018 FINDINGS: Axial images of the head were obtained without contrast. Coronal reformatted images were also obtained. This study was performed with techniques to keep radiation doses as low as reasonably achievable (ALARA). Individualized dose reduction techniques using automated exposure control or adjustment of mA and/or kV according to the patient''s size were employed. There is generalized age-appropriate atrophy. Periventricular low-attenuation areas are seen consistent with mild chronic ischemic changes. There is an area of encephalomalacia in the right parietal region, stable. There is no evidence of intracranial hemorrhage or mass. There is no evidence of acute infarct. There is no evidence of shift of the midline structures. No skull abnormality is seen on the bone window images. There are retention cysts or polyps in the maxillary sinuses. IMPRESSION: Atrophy and mild periventricular chronic ischemic changes. No acute intracranial abnormality identified. Reviewed, Interpreted and Dictated by Marlon Lazo III, MD Transcribed by Geetha Chew Authenticated and [facility]
== END 2023-03-17 13:45 | disposition home or self-care (01) ==
PROVIDERS: Emergency Provider Emergency Medicine; PCP Family Medicine
DX: S02.2XXA Fracture of nasal bones, initial encounter for closed fracture (principal); S01.81XA Laceration without foreign body of other part of head, initial encounter; W22.8XXA Striking against or struck by other objects, initial encounter; Z23 Encounter for immunization
CPT/HCPCS: 12052; 70450; 70486; 72125; 90715; 96372; 99284; 99285

== ENCOUNTER 2023-03-24 09:18 | Outpatient (CLI) | payer MEDICARE, BC, SELFPAY ==
[2023-03-24 09:22] VITALS: BMI 33.9
--- NOTE | 2023-03-24 09:30 | PC.NURSE ---
0937-collected labs via venipuncture stick in right ac with butterfly needle;collected labs;pt d/c to oncology appointment.
[2023-03-24 09:39] LABS: Eosinophils # 0.1 K/mm3 (0.0-0.4); Eosinophils % 2.2 % (0.1-12.0); Hematocrit 41.9 % (42.0-52.0); Hemoglobin 14.3 g/dL (14.1-18.0); Lymphocytes # 0.7 K/mm3 (0.7-4.5); Lymphocytes % 21.3 % (10-50); Mean Corpuscular Hemoglobin 33.2 pg (27.0-31.2); Mean Corpuscular Volume 97.6 fl (80-94); Mean Platelet Volume 8.1 fl (7.4-10.4); Monocytes # 0.4 K/mm3 (0.1-1.0); Monocytes % 11.1 % (1.7-9.3); Neutrophils # 2.2 K/mm3 (1.8-7.8); Neutrophils % 64.5 % (37.0-80.0); Platelet Count 209 K/mm3 (142-424); Red Cell Distribution Width 15.6 % (11.5-17.5); White Blood Count 3.4 K/mm3 (4.8-10.8)
[2023-03-24 09:44] LABS: Chloride 87 mmol/L (98-107); Potassium 3.9 mmoL/L (3.5-5.1); Sodium 131 mmol/L (136-145)
[2023-03-24 09:47] LABS: Alanine Aminotransferase 38 U/L (12-78); Albumin Level 4.3 g/dl (3.5-5.0); Albumin/Globulin Ratio 0.9 (1.1-1.8); Alkaline Phosphatase 85 U/L (38-126); Anion Gap 15.9 mEq/L (5-15); Aspartate Amino Transferase 42 U/L (17-59); Bilirubin,Total 0.8 mg/dl (0.2-1.3); Blood Urea Nitrogen 18 mg/dl (9-20); Calcium 9.3 mg/dl (8.4-10.2); Carbon Dioxide 32 mmol/L (22.0-30.0); Creatinine Clearance Estimated 63 mL/min (50-200); Estimated Glomerular Filt Rate 40 ml/min (>60); GFR (African American) 48 ML/MIN (>60); Globulin 4.7 g/dL (1.3-3.2); Glucose 165 mg/dl (74-100)
[2023-03-25 16:01] LABS: Immunoglobulin A, Qn 34 mg/dL (61-437); Immunoglobulin G, Qn 3400 mg/dL (603-1613); Immunoglobulin M, Qn 8 mg/dL (15-143)
[2023-03-29 16:13] LABS: Albumin 3.9 g/dL (2.9-4.4); Alpha-1-Globulin 0.2 g/dL (0.0-0.4); Alpha-2-Globulin 0.6 g/dL (0.4-1.0); Protein, Total 8.6 g/dL (6.0-8.5)
[2023-05-13 23:48] LABS: Free Kappa Lt Chains 166.5; Free Lambda Lt Chains 7.6
== END 2023-03-24 09:30 | disposition home or self-care (01) ==
LOC: INF 09:19
PROVIDERS: PCP Family Medicine; Visit Provider Internal Medicine Medical Oncology
DX: D47.1 Chronic myeloproliferative disease (principal)
CPT/HCPCS: 36415; 80053; 82784; 83883; 84155; 84165; 85025; 86334

== ENCOUNTER 2023-03-24 09:30 | Emergency (ER) | payer MEDICARE, BC, SELFPAY ==
[2023-03-24 09:31] VITALS: BP 109/66; PULSE 70; RESP 18; TEMP 36.4; O2SAT 96; BMI 33.9
--- NOTE | 2023-03-24 09:47 | EXP.UTC ---
Discharge Plan Prescriptions Prescriptions: No Action ropinirole 0.25 mg tablet 0.5 mg PO BID tamsulosin 0.4 mg capsule 0.4 mg PO DAILY losartan 100 mg tablet 100 mg PO DAILY Qty: 30 5RF Jardiance 10 mg tablet 10 mg PO DAILY atorvastatin 40 mg tablet 40 mg PO HS omeprazole 40 mg capsule,delayed release(DR/EC) 40 mg PO DAILY Label Comments: TAKE ONE CAPSULE BY MOUTH EVERY DAY dexamethasone 4 mg tablet 40 mg PO QWEEK Label Comments: take 10 tablets BY MOUTH one time each WEEK ON DAYS 1, 8, AND 15 of a 28 DAY CYCLE prochlorperazine maleate 10 mg tablet 10 mg PO Q6HP PRN (Reason: Nausea) Label Comments: TAKE ONE TABLET BY MOUTH EVERY 4 HOURS NEEDED FOR NAUSEA AND VOMITING Revlimid 25 mg capsule 25 mg PO DAILY levothyroxine 75 mcg tablet 75 mcg PO DAILY hydrochlorothiazide 25 mg tablet 25 mg PO DAILY Qty: 30 4RF furosemide 20 mg tablet See Rx Instructions .ROUTE .COMPLEX Qty: 15 11RF Dose Instruction: TAKE ONE TABLET BY MOUTH every other DAY ON tuesday, tuesday, AND tuesday ONLY Rx Instructions: TAKE ONE TABLET BY MOUTH every other DAY ON tuesday, tuesday, AND tuesday ONLY rivaroxaban 2.5 MG tablet 2.5 mg PO BID amitriptyline 50 MG tablet 75 mg PO HS bisoprolol fumarate 5 MG tablet 5 mg PO DAILY Referrals Follow up/Referrals: Kai Shea MD [Primary Care Provider] - See instructions Discharge ED Provider: Abimael Chakraborty [facility] General Stated complaint: Suture removal Mode of Arrival: Ambulatory Source of Information: Patient Limitations: No Limitations Time Seen by Provider: 03/24/23 09:47 Description of Symptoms (Recalled from Triage Doc. by RN): suture removal HEENT Symptoms (Recalled from RN notes): No Resp Symptoms (Recalled from RN notes): No Skin Symptoms (Recalled from RN notes): Yes MS Symptoms (Recalled from RN notes): No Functional Status (Recalled from RN notes): wnl Related Data Home Medications Medication Instructions Recorded Confirmed atorvastatin 40 mg tablet 40 mg PO HS Cholesterol 12/20/17 02/25/23 tamsulosin 0.4 mg capsule 0.4 mg PO DAILY prostate 07/03/19 02/25/23 amitriptyline 50 mg tablet 75 mg PO HS Depression 07/02/20 02/25/23 rivaroxaban 2.5 mg tablet 2.5 mg PO BID Blood thinner 07/02/20 02/25/23 ropinirole 0.25 mg tablet 0.5 mg PO BID restless leg syndrome 07/02/20 02/25/23 bisoprolol fumarate 5 mg tablet 5 mg PO DAILY bp 01/08/21 02/25/23 omeprazole 40 mg capsule,delayed 40 mg PO DAILY GERD 02/16/21 02/25/23 release dexamethasone 4 mg tablet 40 mg PO QWEEK Supplement 08/17/21 02/25/23 lenalidomide 25 mg capsule 25 mg PO DAILY myeloma 08/17/21 02/25/23 (Revlimid) prochlorperazine maleate 10 mg 10 mg PO Q6HP PRN Nausea 08/17/21 02/25/23 tablet levothyroxine 75 mcg tablet 75 mcg PO DAILY 12/16/22 02/25/23 empagliflozin 10 mg tablet 10 mg PO DAILY 01/21/23 02/25/23 (Jardiance) Previous Rx's Medication Instructions Recorded hydrochlorothiazide 25 mg tablet 25 mg PO DAILY CHF #30 tabs 04/12/18 losartan 100 mg tablet 100 mg PO DAILY #30 tabs 02/16/22 furosemide 20 mg tablet See Rx Instructions .Route 05/26/22 .COMPLEX #15 tabs Allergies Allergy/AdvReac Type Severity Reaction Status Date / Time No Known Allergies Allergy Verified 02/25/23 13:00 Worker's Comp Is this a Worker's Comp case?: No [facility] Disclaimer: The information contained in this section may have been updated after the patient was seen, as this information can be updated by other users. Medical History Bilateral leg pain CAD (coronary artery disease) Cardiomyopathy Chest pain Hyperlipidemia Hypertensive heart disease without heart failure Neuropathy MIO (obstructive sleep apnea) PAD (peripheral artery disease) Surgical History History
[2023-03-24 10:20] VITALS: BP 109/66; PULSE 70; RESP 18; TEMP 36.4; O2SAT 96
== END 2023-03-24 10:21 | disposition home or self-care (01) ==
PROVIDERS: Emergency Provider Nurse Practitioner Family; PCP Family Medicine
DX: S01.81XA Laceration without foreign body of other part of head, initial encounter (principal); Z48.02 Encounter for removal of sutures

== ENCOUNTER → 2023-05-24 07:08 | Outpatient (CLI) | payer MEDICARE, BC, SELFPAY ==
[2023-05-24 08:06] LABS: Alanine Aminotransferase 35 U/L (12-78); Albumin Level 4.3 g/dl (3.5-5.0); Albumin/Globulin Ratio 0.9 (1.1-1.8); Alkaline Phosphatase 103 U/L (38-126); Aspartate Amino Transferase 29 U/L (17-59); Bilirubin,Total 1.1 mg/dl (0.2-1.3); Blood Urea Nitrogen 24 mg/dl (9-20); Calcium 9.2 mg/dl (8.4-10.2); Carbon Dioxide 32 mmol/L (22.0-30.0); Chloride 94 mmol/L (98-107); Chol/HDL Ratio 3.7 (1-3.5); Cholesterol 92 mg/dl (140-200); Estimated Glomerular Filt Rate 40 ml/min (>60); GFR (African American) 48 ML/MIN (>60); Glucose 146 mg/dl (74-100); HDL Cholesterol 25 mg/dl (40-60); Sodium 131 mmol/L (136-145); Total Protein,Serum 9.3 g/dl (6.3-8.2); Triglycerides 139 mg/dl (30-150); VLDL Cholesterol 28 mg/dL (0-40)
[2023-05-24 08:17] LABS: Direct LDL Cholesterol 38.42 mg/dL (100-129)
[2023-05-24 08:37] LABS: Thyroid Stimulating Hormone 4.23 uIU/mL (0.465-4.68)
[2023-05-24 14:17] LABS: Hemoglobin A1C 6.1 % (4.0-6.0)
== END ==
PROVIDERS: PCP Family Medicine; Visit Provider Family Medicine
DX: E11.9 Type 2 diabetes mellitus without complications (principal); I25.10 Atherosclerotic heart disease of native coronary artery without angina pectoris; E78.5 Hyperlipidemia, unspecified; E03.9 Hypothyroidism, unspecified; I10 Essential (primary) hypertension
CPT/HCPCS: 36415; 80053; 80061; 83036; 84443

== ENCOUNTER → 2023-05-26 13:03 | Outpatient (CLI) | payer MEDICARE, BC, SELFPAY ==
--- NOTE | 2023-05-26 13:06 | CA_ITS ---
APPROVED REPORT EXAM: Comprehensive 2D, Doppler, and color-flow Echocardiogram Employee Communications Manager: ALLISON Velasquez, RVS Ht: 6 ft 0 in Wt: 241lbs BSA: 2.31 HR: 70 bpm BP: 128/72 mmHg Rhythm: abn w/frequent ectopy Indications: Multiple myeloma, CAD-OHS/cabg, AICD, SANDHU Echo Enhancing Agent Comments: Poor acoustics throughout exam with limited windows. 2D Dimensions IVSd 0.73 cm LVEF (Visual) 45.00 % PWd 0.92 cm LA Volume 60.20 mL LVDd 5.50 cm M: 4.2 - 5.9 LA Volume Index 25.50 mL/m2 (M/F) 16-34 LVDs 4.70 cm M: 2.5 - 4.0 Aortic Root 3.83 cm Left Atrium 6.27 cm LVOT 2.25 cm (M/F) 1.5-2.5 M-Mode Dimensions RVDd 3.29 cm (0.9-2.6) LA Diam 4.90 cm (1.9-4.0) LVDd 5.50 cm (3.5-5.7) Ao Diam 3.99 cm (2.0-3.7) LVDs 4.43 cm (3.5-5.7) IVSd 0.97 cm (0.6-1.1) PWd 0.80 cm (0.6-1.1) EF (Teich) 40.00% EPSs 1.70 cm FS 19.50% EDV (Teich) 147.40 mL TAPSE 1.02 (<1.7) ESV (Teich) 89.10 mL LV Diastology E Decel Time 150.00 (160-240 msec) E/A Ratio 0.92 MED E' 5.80 (< 7 cm/sec) MED A' 8.40 cm/s E'/MED E' Ratio 13.69 (>14) LAT E' 9.30 (<10 cm/sec) LAT A' 9.10 cm/s E/LAT E' Ratio 8.54 (>14) Aortic Valve LVOT Max 135.00 (70-110 cm/s) LVOT VTI 26.12 cm AoV Peak Pasha. 192.00 (50-130 cm/s) AI PHT 345.00 ms AO Peak GR. 14.70 mmHg AO Mean GR. 7.30 (<5 mmHg) AO VTI 33.79 (18-25 cm) LEFTY (VTI) 3.07 (2.5-4.5 cm2) Mitral Valve MV A Velocity 87.00 (40-130 cm/s) E/A Ratio 0.92 MV Decel. Time 150.00 (160-240 ms) Pulmonary Valve PV Peak Velocity 109.00 (50-150 cm/s) MS End VMAX 153.00 cm/s Tricuspid Valve TR P. Velocity 245.00 cm/s RAP Estimate 10.00 mmHg RVSP 34.00 mmHg Left Ventricle The left ventricle is normal size. The left ventricular systolic function is normal. The left ventricular ejection fraction is within the normal range. There is normal left ventricular wall thickness. There is normal LV segmental wall motion. Diastolic function is normal. LVEF is 55%. Right Ventricle The right ventricle is normal size. A device lead is present in the right ventricle. Atria Left atrium is mildly dilated. The right atrium size is normal. There is no Doppler evidence of interatrial shunt. Aortic Valve The aortic valve is mildly thickened. Mild aortic regurgitation. Mitral Valve There is mild mitral annular calcification. The mitral valve leaflets appear mildly thickened. The posterior MV leaflet is tethered and is restricted in motion. No evidence of mitral valve stenosis. There is mild mitral regurgitation present. Tricuspid Valve The tricuspid valve leaflets are thin and pliable. Mild tricuspid regurgitation. RVSP = 25 -30 mmHg. Pulmonic Valve The pulmonary valve is normal in structure. Mild pulmonic regurgitation. Great Vessels The aortic root is normal in size. The IVC is normal in size, but collapses < 50% with respirophasic variation. Pericardium There is no pericardial effusion. Other Information Study Quality: Adequate Conclusion Normal biventricular systolic function. Tethered ad calcified posterior MV leaflet. Mild MR. Mild AI. Electronically signed by : Ronda Little, 05/27/2023 12:02:23
== END ==
PROVIDERS: PCP Family Medicine; Visit Provider Nurse Practitioner
DX: E66.9 Obesity, unspecified (principal); E78.5 Hyperlipidemia, unspecified; G47.33 Obstructive sleep apnea (adult) (pediatric); I11.9 Hypertensive heart disease without heart failure; I25.10 Atherosclerotic heart disease of native coronary artery without angina pectoris; I73.9 Peripheral vascular disease, unspecified; Z95.1 Presence of aortocoronary bypass graft; Z95.810 Presence of automatic (implantable) cardiac defibrillator; R06.09 Other forms of dyspnea; I42.8 Other cardiomyopathies; Z68.33 Body mass index [BMI] 33.0-33.9, adult; I47.20 Ventricular tachycardia, unspecified
CPT/HCPCS: 93306

== ENCOUNTER → 2023-06-02 09:48 | Outpatient (CLI) | payer MEDICARE, BC, SELFPAY ==
[2023-06-02 11:19] LABS: Hemoglobin A1C 6.1 % (4.0-6.0)
[2023-06-02 11:42] LABS: Alanine Aminotransferase 33 U/L (12-78); Alkaline Phosphatase 105 U/L (38-126); Anion Gap 10.8 mEq/L (5-15); Aspartate Amino Transferase 30 U/L (17-59); Bilirubin,Total 0.9 mg/dl (0.2-1.3); Blood Urea Nitrogen 21 mg/dl (9-20); Calcium 8.8 mg/dl (8.4-10.2); Carbon Dioxide 29 mmol/L (22.0-30.0); Chloride 102 mmol/L (98-107); Cholesterol 76 mg/dl (140-200); Estimated Glomerular Filt Rate 54 ml/min (>60); GFR (African American) 66 ML/MIN (>60); Globulin 4.2 g/dL (1.3-3.2); Glucose 113 mg/dl (74-100); HDL Cholesterol 19 mg/dl (40-60); Potassium 4.8 mmoL/L (3.5-5.1); Sodium 137 mmol/L (136-145); Total Protein,Serum 8.2 g/dl (6.3-8.2); Triglycerides 150 mg/dl (30-150); VLDL Cholesterol 30 mg/dL (0-40)
[2023-06-02 11:53] LABS: Direct LDL Cholesterol 34.43 mg/dL (100-129)
[2023-06-02 12:13] LABS: Prostate Specific Ag Screen 23.7 ng/ml (0.0-4.0)
[2023-06-02 12:15] LABS: Thyroid Stimulating Hormone 1.13 uIU/mL (0.465-4.68)
== END ==
PROVIDERS: PCP Family Medicine; Visit Provider Family Medicine
DX: E11.9 Type 2 diabetes mellitus without complications (principal); E78.5 Hyperlipidemia, unspecified; E03.9 Hypothyroidism, unspecified; I10 Essential (primary) hypertension; R97.20 Elevated prostate specific antigen [PSA]; Z12.5 Encounter for screening for malignant neoplasm of prostate
CPT/HCPCS: 36415; 80053; 80061; 83036; 84443; G0103

== ENCOUNTER 2023-06-20 08:30 | Outpatient (CLI) | payer MEDICARE, BC, SELFPAY ==
[2023-06-20 08:34] VITALS: BMI 33.0
[2023-06-20 09:00] LABS: Basophils % 1.6 % (0.1-2.0); Eosinophils # 0.1 K/mm3 (0.0-0.4); Eosinophils % 4.2 % (0.1-12.0); Hematocrit 39.6 % (42.0-52.0); Hemoglobin 12.9 g/dL (14.1-18.0); Lymphocytes # 0.6 K/mm3 (0.7-4.5); Lymphocytes % 23.8 % (10-50); Mean Corpuscular HGB Conc 32.6 g/dL (31.8-35.4); Mean Corpuscular Hemoglobin 32.3 pg (27.0-31.2); Mean Platelet Volume 8.2 fl (7.4-10.4); Monocytes # 0.3 K/mm3 (0.1-1.0); Monocytes % 13.8 % (1.7-9.3); Neutrophils # 1.3 K/mm3 (1.8-7.8); Neutrophils % 56.7 % (37.0-80.0); Platelet Count 141 K/mm3 (142-424); Red Cell Distribution Width 16.5 % (11.5-17.5); White Blood Count 2.3 K/mm3 (4.8-10.8)
[2023-06-20 09:05] LABS: Chloride 102 mmol/L (98-107); Potassium 4.3 mmoL/L (3.5-5.1); Sodium 140 mmol/L (136-145)
[2023-06-20 09:07] LABS: Blood Urea Nitrogen 18 mg/dl (9-20); Creatinine Clearance Estimated 79 mL/min (50-200); Estimated Glomerular Filt Rate 54 ml/min (>60); GFR (African American) 65 ML/MIN (>60)
[2023-06-20 09:08] LABS: Alanine Aminotransferase 36 U/L (12-78); Albumin Level 4.1 g/dl (3.5-5.0); Albumin/Globulin Ratio 0.9 (1.1-1.8); Alkaline Phosphatase 106 U/L (38-126); Anion Gap 13.3 mEq/L (5-15); Aspartate Amino Transferase 28 U/L (17-59); Bilirubin,Total 0.7 mg/dl (0.2-1.3); Calcium 9.6 mg/dl (8.4-10.2); Carbon Dioxide 29 mmol/L (22.0-30.0); Globulin 4.6 g/dL (1.3-3.2); Glucose 133 mg/dl (74-100); Total Protein,Serum 8.7 g/dl (6.3-8.2)
[2023-06-20 18:49] LABS: Vitamin B12 256 pg/mL (239-931)
[2023-06-20 18:54] LABS: Folate 9.07 ng/mL
[2023-06-21 13:32] LABS: Albumin 3.8 g/dL (2.9-4.4); Alpha-1-Globulin 0.3 g/dL (0.0-0.4); Alpha-2-Globulin 0.7 g/dL (0.4-1.0); Gamma Globulin 2.6 g/dL (0.4-1.8); Protein, Total 8.2 g/dL (6.0-8.5)
[2023-06-21 19:03] LABS: Immunoglobulin A, Qn 39 mg/dL (61-437); Immunoglobulin G, Qn 2657 mg/dL (603-1613); Immunoglobulin M, Qn 12 mg/dL (15-143)
[2023-06-23 12:45] LABS: Free Kappa Lt Chains 234.5
[2023-06-23 12:46] LABS: Free Lambda Lt Chains 12.4
== END 2023-06-20 09:00 | disposition home or self-care (01) ==
LOC: INF 08:30
PROVIDERS: Physician Assistant; PCP Family Medicine; Visit Provider Internal Medicine Medical Oncology
DX: C90.00 Multiple myeloma not having achieved remission (principal); R20.0 Anesthesia of skin
CPT/HCPCS: 36415; 80053; 82607; 82746; 82784; 83883; 84155; 84165; 85025; 86334

== ENCOUNTER 2023-07-28 08:25 | Outpatient (CLI) | payer MEDICARE, BC, SELFPAY ==
[2023-07-28 08:32] VITALS: BMI 31.6
[2023-07-28 08:55] LABS: Basophils % 1.2 % (0.1-2.0); Eosinophils # 0.1 K/mm3 (0.0-0.4); Eosinophils % 5.9 % (0.1-12.0); Hematocrit 41.5 % (42.0-52.0); Hemoglobin 13.5 g/dL (14.1-18.0); Lymphocytes # 0.6 K/mm3 (0.7-4.5); Lymphocytes % 25.5 % (10-50); Mean Corpuscular HGB Conc 32.4 g/dL (31.8-35.4); Mean Corpuscular Hemoglobin 31.2 pg (27.0-31.2); Mean Corpuscular Volume 96.1 fl (80-94); Mean Platelet Volume 8.7 fl (7.4-10.4); Monocytes # 0.2 K/mm3 (0.1-1.0); Monocytes % 9.6 % (1.7-9.3); Neutrophils # 1.3 K/mm3 (1.8-7.8); Neutrophils % 57.7 % (37.0-80.0); Platelet Count 91 K/mm3 (142-424); Red Blood Count 4.32 M/mm3 (4.60-6.20); Red Cell Distribution Width 16.8 % (11.5-17.5); White Blood Count 2.3 K/mm3 (4.8-10.8)
[2023-07-28 08:58] LABS: Chloride 103 mmol/L (98-107)
[2023-07-28 08:59] LABS: Potassium 3.9 mmoL/L (3.5-5.1); Sodium 141 mmol/L (136-145)
[2023-07-28 09:01] LABS: Alanine Aminotransferase 37 U/L (12-78); Alkaline Phosphatase 91 U/L (38-126); Anion Gap 10.9 mEq/L (5-15); Aspartate Amino Transferase 27 U/L (17-59); Bilirubin,Total 0.8 mg/dl (0.2-1.3); Blood Urea Nitrogen 16 mg/dl (9-20); Carbon Dioxide 31 mmol/L (22.0-30.0); Creatinine Clearance Estimated 70 mL/min (50-200); Estimated Glomerular Filt Rate 50 ml/min (>60); GFR (African American) 60 ML/MIN (>60)
[2023-07-28 09:02] LABS: Calcium 8.8 mg/dl (8.4-10.2); Glucose 131 mg/dl (74-100)
[2023-07-28 10:17] VITALS: BP 98/53; PULSE 68; RESP 18; TEMP 36.4; O2SAT 100
--- NOTE | 2023-07-28 10:50 | PC.NURSE ---
07/28/23 0848 pt presents today prior to md appt to have blood drawn for labs as ordered per MD. Venipuncture performed using a butterfly needle to pt's rt ac x 1 stick. Blood obtained for labs and specimen sent to lab for analysis. Site secured with 2x2 gauze and coban once needle was withdrawn. Pt able to ambulate self to specialty clinic for appt.
[2023-08-09 08:02] LABS: Immunoglobulin A, Qn 66; Immunoglobulin G, Qn 1998
[2023-08-09 08:03] LABS: Immunoglobulin M, Qn 22; Protein, Total 7.4
[2023-08-09 08:04] LABS: Albumin 3.6; Alpha-1-Globulin 0.3
[2023-08-09 08:05] LABS: Alpha-2-Globulin 0.6
[2023-08-09 08:07] LABS: Free Kappa Lt Chains 212.3
[2023-08-09 08:08] LABS: Free Lambda Lt Chains 21.2
== END 2023-07-28 10:35 ==
LOC: INF 08:26
PROVIDERS: PCP Family Medicine; Visit Provider Internal Medicine Medical Oncology
DX: C91.10 Chronic lymphocytic leukemia of B-cell type not having achieved remission (principal)
CPT/HCPCS: 36415; 80053; 82784; 83883; 84155; 84165; 85025; 86334; 96372

== ENCOUNTER 2023-08-25 10:02 | Outpatient (CLI) | payer MEDICARE, BC, SELFPAY ==
[2023-08-25 10:06] VITALS: BMI 31.1
[2023-08-25 10:52] LABS: Chloride 99 mmol/L (98-107); Potassium 4.2 mmoL/L (3.5-5.1); Sodium 137 mmol/L (136-145)
[2023-08-25 10:55] LABS: Alanine Aminotransferase 16 U/L (12-78); Albumin Level 4.4 g/dl (3.5-5.0); Albumin/Globulin Ratio 1.2 (1.1-1.8); Alkaline Phosphatase 87 U/L (38-126); Anion Gap 10.2 mEq/L (5-15); Aspartate Amino Transferase 37 U/L (17-59); Bilirubin,Total 0.7 mg/dl (0.2-1.3); Blood Urea Nitrogen 21 mg/dl (9-20); Carbon Dioxide 32 mmol/L (22.0-30.0); Creatinine Clearance Estimated 75 mL/min (50-200); Estimated Glomerular Filt Rate 54 ml/min (>60); GFR (African American) 65 ML/MIN (>60); Globulin 3.6 g/dL (1.3-3.2)
[2023-08-25 10:56] LABS: Calcium 8.9 mg/dl (8.4-10.2); Glucose 113 mg/dl (74-100)
[2023-08-25 12:35] VITALS: BP 124/70; PULSE 42; RESP 18; TEMP 36.4; O2SAT 98
--- NOTE | 2023-08-25 12:44 | PC.NURSE ---
08/25/23 [address]Christy Parker appt. Lab staff called and reported that pt's blood for the CBC that was drawn per nursing this am was clotted . Lab staff called and requested to come back and draw pt's labs that are needed.
[2023-08-25 12:59] LABS: Basophils % 0.8 % (0.1-2.0); Eosinophils # 0.1 K/mm3 (0.0-0.4); Eosinophils % 3.5 % (0.1-12.0); Hematocrit 40.5 % (42.0-52.0); Hemoglobin 13.6 g/dL (14.1-18.0); Lymphocytes # 0.8 K/mm3 (0.7-4.5); Lymphocytes % 22.6 % (10-50); Mean Corpuscular HGB Conc 33.5 g/dL (31.8-35.4); Mean Corpuscular Hemoglobin 33.2 pg (27.0-31.2); Mean Corpuscular Volume 99.2 fl (80-94); Mean Platelet Volume 8.4 fl (7.4-10.4); Monocytes # 0.5 K/mm3 (0.1-1.0); Neutrophils # 2.1 K/mm3 (1.8-7.8); Platelet Count 131 K/mm3 (142-424); Red Blood Count 4.08 M/mm3 (4.60-6.20); Red Cell Distribution Width 18.5 % (11.5-17.5); White Blood Count 3.5 K/mm3 (4.8-10.8)
[2023-08-26 18:10] LABS: Immunoglobulin A, Qn 53 mg/dL (61-437); Immunoglobulin G, Qn 1989 mg/dL (603-1613); Immunoglobulin M, Qn 15 mg/dL (15-143)
[2023-08-29 14:10] LABS: Albumin 4.1 g/dL (2.9-4.4); Alpha-1-Globulin 0.2 g/dL (0.0-0.4); Alpha-2-Globulin 0.6 g/dL (0.4-1.0); Gamma Globulin 1.8 g/dL (0.4-1.8); Protein, Total 7.5 g/dL (6.0-8.5)
[2023-09-01 12:02] LABS: Free Kappa Lt Chains 138.9; Free Lambda Lt Chains 16.3
== END 2023-08-25 12:57 | disposition home or self-care (01) ==
LOC: INF 10:03
PROVIDERS: PCP Family Medicine; Visit Provider Internal Medicine Medical Oncology
DX: D47.2 Monoclonal gammopathy
CPT/HCPCS: 36415; 80053; 82784; 83883; 84155; 84165; 85025; 86334; 96372

== ENCOUNTER → 2023-09-20 10:24 | Outpatient (CLI) | payer MEDICARE, BC, SELFPAY ==
[2023-09-20 10:30] VITALS: BMI 31.1
[2023-09-20 10:37] VITALS: BP 110/59; PULSE 41; RESP 18; TEMP 36.6; O2SAT 100
[2023-09-20 11:02] LABS: Basophils % 0.9 % (0.1-2.0); Eosinophils # 0.1 K/mm3 (0.0-0.4); Eosinophils % 3.1 % (0.1-12.0); Hematocrit 41.5 % (42.0-52.0); Hemoglobin 13.9 g/dL (14.1-18.0); Lymphocytes # 0.6 K/mm3 (0.7-4.5); Lymphocytes % 15.7 % (10-50); Mean Corpuscular HGB Conc 33.5 g/dL (31.8-35.4); Mean Corpuscular Hemoglobin 32.8 pg (27.0-31.2); Mean Corpuscular Volume 97.9 fl (80-94); Mean Platelet Volume 8.5 fl (7.4-10.4); Monocytes # 0.4 K/mm3 (0.1-1.0); Monocytes % 10.8 % (1.7-9.3); Neutrophils # 2.8 K/mm3 (1.8-7.8); Neutrophils % 69.6 % (37.0-80.0); Platelet Count 128 K/mm3 (142-424); Red Blood Count 4.24 M/mm3 (4.60-6.20); Red Cell Distribution Width 17.8 % (11.5-17.5); White Blood Count 4.1 K/mm3 (4.8-10.8)
[2023-09-20 11:05] LABS: Chloride 97 mmol/L (98-107); Potassium 3.8 mmoL/L (3.5-5.1); Sodium 137 mmol/L (136-145)
[2023-09-20 11:08] LABS: Alanine Aminotransferase 16 U/L (12-78); Albumin Level 4.3 g/dl (3.5-5.0); Albumin/Globulin Ratio 1.2 (1.1-1.8); Alkaline Phosphatase 98 U/L (38-126); Anion Gap 10.8 mEq/L (5-15); Aspartate Amino Transferase 32 U/L (17-59); Bilirubin,Total 0.9 mg/dl (0.2-1.3); Blood Urea Nitrogen 19 mg/dl (9-20); Calcium 8.7 mg/dl (8.4-10.2); Carbon Dioxide 33 mmol/L (22.0-30.0); Creatinine Clearance Estimated 65 mL/min (50-200); Estimated Glomerular Filt Rate 46 ml/min (>60); GFR (African American) 56 ML/MIN (>60); Globulin 3.7 g/dL (1.3-3.2); Glucose 148 mg/dl (74-100)
[2023-09-21 14:12] LABS: Immunoglobulin A, Qn 62 mg/dL (61-437); Immunoglobulin G, Qn 2150 mg/dL (603-1613); Immunoglobulin M, Qn 16 mg/dL (15-143)
[2023-09-21 15:23] LABS: Albumin 3.7 g/dL (2.9-4.4); Alpha-1-Globulin 0.3 g/dL (0.0-0.4); Alpha-2-Globulin 0.8 g/dL (0.4-1.0); Gamma Globulin 1.9 g/dL (0.4-1.8); Protein, Total 7.5 g/dL (6.0-8.5)
[2023-09-26 22:03] LABS: Free Kappa Lt Chains 186.1; Free Lambda Lt Chains 17.9
== END ==
PROVIDERS: PCP Family Medicine; Visit Provider Internal Medicine Medical Oncology
DX: D47.2 Monoclonal gammopathy (principal); Z79.899 Other long term (current) drug therapy
CPT/HCPCS: 36415; 80053; 82784; 83883; 84155; 84165; 85025; 86334; 96372

== ENCOUNTER 2023-11-01 09:07 | Outpatient (CLI) | payer MEDICARE, BC, SELFPAY ==
[2023-11-01 09:19] VITALS: BP 120/68; PULSE 69; RESP 16; TEMP 36.8; O2SAT 98
[2023-11-01] MEDS: VITAMIN B-12 1,000 MCG 1ML VIAL 1000 MCG (09:19)
[2023-11-01 09:24] VITALS: BMI 30.5
[2023-11-01 09:52] LABS: Basophils % 1.9 % (0.1-2.0); Eosinophils # 0.1 K/mm3 (0.0-0.4); Eosinophils % 4.3 % (0.1-12.0); Hematocrit 44.6 % (42.0-52.0); Hemoglobin 14.4 g/dL (14.1-18.0); Lymphocytes # 0.7 K/mm3 (0.7-4.5); Lymphocytes % 35.4 % (10-50); Mean Corpuscular HGB Conc 32.3 g/dL (31.8-35.4); Mean Corpuscular Hemoglobin 32.6 pg (27.0-31.2); Mean Platelet Volume 8.3 fl (7.4-10.4); Monocytes # 0.3 K/mm3 (0.1-1.0); Monocytes % 14.6 % (1.7-9.3); Neutrophils # 0.9 K/mm3 (1.8-7.8); Neutrophils % 43.9 % (37.0-80.0); Platelet Count 89 K/mm3 (142-424); Red Blood Count 4.41 M/mm3 (4.60-6.20)
[2023-11-01 09:58] LABS: Alanine Aminotransferase 13 U/L (12-78); Albumin Level 4.3 g/dl (3.5-5.0); Albumin/Globulin Ratio 1.2 (1.1-1.8); Alkaline Phosphatase 97 U/L (38-126); Anion Gap 8.9 mEq/L (5-15); Aspartate Amino Transferase 32 U/L (17-59); Bilirubin,Total 0.7 mg/dl (0.2-1.3); Blood Urea Nitrogen 22 mg/dl (9-20); Calcium 8.6 mg/dl (8.4-10.2); Carbon Dioxide 30 mmol/L (22.0-30.0); Chloride 102 mmol/L (98-107); Creatinine Clearance Estimated 73 mL/min (50-200); Estimated Glomerular Filt Rate 54 ml/min (>60); GFR (African American) 65 ML/MIN (>60); Globulin 3.5 g/dL (1.3-3.2); Glucose 113 mg/dl (74-100); Potassium 3.9 mmoL/L (3.5-5.1); Sodium 137 mmol/L (136-145); Total Protein,Serum 7.8 g/dl (6.3-8.2)
[2023-11-02 14:19] LABS: Albumin 3.9 g/dL (2.9-4.4); Alpha-1-Globulin 0.3 g/dL (0.0-0.4); Alpha-2-Globulin 0.6 g/dL (0.4-1.0); Gamma Globulin 1.9 g/dL (0.4-1.8); Protein, Total 7.4 g/dL (6.0-8.5)
[2023-11-03 12:24] LABS: PDF SCANNED IMAGE
[2023-11-03 12:26] LABS: Immunoglobulin G, Qn 2173
[2023-11-03 12:27] LABS: Immunoglobulin A, Qn 62
[2023-11-03 12:28] LABS: Free Kappa Lt Chains 152.1
[2023-11-03 13:11] LABS: Immunoglobulin M, Qn 17 mg/dL (15-143)
== END 2023-11-01 09:45 | disposition home or self-care (01) ==
LOC: INF 09:09
PROVIDERS: PCP Family Medicine; Visit Provider Internal Medicine Medical Oncology
DX: D47.2 Monoclonal gammopathy (principal); Z79.899 Other long term (current) drug therapy
CPT/HCPCS: 36415; 80053; 82784; 83883; 84155; 84165; 85025; 86334; 96372

== ENCOUNTER 2023-11-04 08:34 | Outpatient (CLI) | payer MEDICARE, BC, SELFPAY ==
[2023-11-04 08:42] VITALS: BMI 29.9
[2023-11-04 08:59] LABS: Basophils % 0.8 % (0.1-2.0); Eosinophils % 0.8 % (0.1-12.0); Hematocrit 44.1 % (42.0-52.0); Hemoglobin 14.9 g/dL (14.1-18.0); Lymphocytes # 0.8 K/mm3 (0.7-4.5); Lymphocytes % 27.6 % (10-50); Mean Corpuscular HGB Conc 33.8 g/dL (31.8-35.4); Mean Corpuscular Hemoglobin 33.3 pg (27.0-31.2); Mean Corpuscular Volume 98.5 fl (80-94); Mean Platelet Volume 8.3 fl (7.4-10.4); Monocytes # 0.4 K/mm3 (0.1-1.0); Monocytes % 12.9 % (1.7-9.3); Neutrophils # 1.6 K/mm3 (1.8-7.8); Neutrophils % 57.9 % (37.0-80.0); Platelet Count 119 K/mm3 (142-424); Red Blood Count 4.47 M/mm3 (4.60-6.20); White Blood Count 2.8 K/mm3 (4.8-10.8)
--- NOTE | 2023-11-04 10:29 | PC.NURSE ---
0850-BLOOD DRAWN FROM RIGHT HAND USING BUTTERFLY NEEDLE TO CHECK CBC AT THIS TIME.
== END 2023-11-04 09:00 | disposition home or self-care (01) ==
LOC: INF 08:36
PROVIDERS: PCP Family Medicine; Visit Provider Internal Medicine Medical Oncology
DX: C90.00 Multiple myeloma not having achieved remission (principal)
CPT/HCPCS: 36415; 85025

== ENCOUNTER 2023-11-14 11:59 | Emergency (ER) | payer MEDICARE, BC, SELFPAY ==
--- NOTE | 2023-11-14 12:06 | XR_ITS ---
FINAL REPORT CLINICAL HISTORY: fall, upper humerus on shoulder xray FINDINGS: LEFT HUMERUS 3 views were obtained. There is no acute fracture or dislocation. Visualized joint spaces are normally aligned. There are degenerative changes at the shoulder and elbow. Soft tissues are unremarkable. IMPRESSION: No acute bony abnormality. Reviewed, Interpreted and Dictated by Marlon Lazo III, MD Transcribed by Lyric Hodge Authenticated and [facility]
--- NOTE | 2023-11-14 12:06 | XR_ITS ---
FINAL REPORT CLINICAL HISTORY: fall FINDINGS: LEFT SHOULDER Two views demonstrate no acute fracture or dislocation. There are mild degenerative changes present. The visualized bony structures are well aligned. No soft tissue abnormality is seen. IMPRESSION: No acute process. Reviewed, Interpreted and Dictated by Marlon Lazo III, MD Transcribed by Lyric Hodge Authenticated and [facility]
--- NOTE | 2023-11-14 12:06 | XR_ITS ---
FINAL REPORT CLINICAL HISTORY: fall FINDINGS: LEFT RIBS 4 views of the left ribs were obtained. There is a left sixth anterolateral rib fracture which is age-indeterminate. Patient is status post median sternotomy. A left subclavian ICD is in place.. Visualized lungs are clear. There is no pneumothorax. IMPRESSION: Left 6 anterolateral rib fracture, age-indeterminate. No pneumothorax. Reviewed, Interpreted and Dictated by Marlon Lazo III, MD Transcribed by Lyric Hodge Authenticated and [facility]
--- NOTE | 2023-11-14 12:06 | XR_ITS ---
FINAL REPORT CLINICAL HISTORY: fall FINDINGS: Four views of the left elbow were obtained. There is no acute fracture or dislocation. There are mild to moderate degenerative changes. A probable joint effusion is seen. There is not soft tissue abnormality. IMPRESSION: Degenerative changes with probable joint effusion. No acute bony abnormality. Reviewed, Interpreted and Dictated by Marlon Lazo III, MD Transcribed by Lyric Hodge Authenticated and [facility]
[2023-11-14 12:12] VITALS: BP 134/65; PULSE 69; RESP 21; TEMP 36.6; O2SAT 97; BMI 29.9
--- NOTE | 2023-11-14 13:05 | EXP.UTC ---
Discharge Plan Disposition Patient Disposition: Home, Self-Care Condition: Good Prescriptions Prescriptions: No Action tamsulosin 0.4 mg capsule 0.4 mg PO DAILY Jardiance 10 mg tablet 10 mg PO DAILY amitriptyline 25 mg tablet 100 mg PO HS Patient Comments: TAKE FOUR TABLETS BY MOUTH EVERY NIGHT lenalidomide [Revlimid] 10 mg capsule 10 mg PO DAILY carbidopa-levodopa 25-100 mg tablet 1 tab PO DAILY atorvastatin 40 mg tablet 40 mg PO HS omeprazole 40 mg capsule,delayed release(DR/EC) 40 mg PO DAILY Patient Comments: TAKE ONE CAPSULE BY MOUTH EVERY DAY prochlorperazine maleate 10 mg tablet 10 mg PO Q6HP PRN (Reason: Nausea) Patient Comments: TAKE ONE TABLET BY MOUTH EVERY 4 HOURS NEEDED FOR NAUSEA AND VOMITING levothyroxine 75 mcg tablet 75 mcg PO DAILY hydrochlorothiazide 25 mg tablet 25 mg PO DAILY Qty: 30 4RF rivaroxaban 2.5 MG tablet 2.5 mg PO BID bisoprolol fumarate 5 MG tablet 5 mg PO DAILY furosemide 20 mg tablet See Rx Instructions .ROUTE .COMPLEX Rx Instructions: TAKE ONE TABLET BY MOUTH every other DAY ON tuesday, tuesday, AND tuesday ONLY losartan 100 mg tablet 100 mg PO DAILY Referrals Follow up/Referrals: Kai Shea MD [Primary Care Provider] - See instructions Primo De Souza DO [Staff Physician] - See instructions Activity Restrictions/Add. Instructions Additional Instructions/Restrictions: *RICE, Rest the extremity, Ice 15-20 minutes 3-4 times daily, Compress- wear the artur wrap as discussed as much as possible to help reduce swelling and pain, Elevate the extremity when at rest *Artur wrap is for support and help control swelling, use it except in the shower. Be sure that is not to tight but not to loose either *Elevate when resting? * Tylenol for pain Immediately follow up with your family doctor for new or worsening of symptoms, or no noticeable improvement over the next 3-5 days Follow up with Family Doctor if pain continues Follow up with Orthopedics for worsening pain in elbow Clinical Impressions Clinical Impression: Fall Qualifiers: Encounter type: initial encounter Qualified Code(s): W19.XXXA - Unspecified fall, initial encounter Instructions Patient Instructions: DI for Rib Fracture, DI for Contusion, DI for Shoulder Pain, How To Perform RICE (Rest, Ice, Compress, Elevate) Discharge ED Provider: Marcie Guillermo [facility] [place] General Stated complaint: left shoulder pain Mode of Arrival: Ambulatory Source of Information: Patient Limitations: No Limitations Time Seen by Provider: 11/14/23 13:05 Description of Symptoms (Recalled from Triage Doc. 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 and not sure if he slipped on ice or snow but he fell and landed on his left side States that since falling he has been having pain in his left ribs and left shoulder, upper arm and humerous Denies hitting his head and denies LOC Related Data Home Medications Medication Instructions Recorded Confirmed atorvastatin 40 mg tablet 40 mg PO HS Cholesterol 12/20/17 11/02/23 tamsulosin 0.4 mg capsule 0.4 mg PO DAILY prostate 07/03/19 11/02/23 rivaroxaban 2.5 mg tablet 2.5 mg PO BID Blood thinner 07/02/20 11/02/23 bisoprolol fumarate 5 mg tablet 5 mg PO DAILY bp 01/08/21 11/02/23 omeprazole 40 mg capsule,delayed 40 mg PO DAILY GERD 02/16/21 11/02/23 release prochlorperazine maleate 10 mg 10 mg PO Q6HP PRN Nausea 08/17/21 11/02/23 tablet levothyroxine 75 mcg tablet 75 mcg PO DAILY thyroid supplement 12/16/22 11/02/23 empagliflozin 10 mg tablet 10 mg PO DAILY Diabetes 01/21/23 11/02/23 (Jardiance) furosemide 20 mg tablet See Rx Instructions .Route 07/28/23 11/02/23 .COMPLEX Fluid losartan 100 mg tablet 100 mg PO DAILY blood pressure 07/28/23 11/02/23 amitriptyline 25 mg tablet 100 mg PO HS 08/25/23 11/02/23 carbidopa 25 mg-levodopa 100 mg 1 tab PO DAILY tremors 08/25/23 11/02/23 tablet lenalidomide 10 mg capsule 10 mg PO DAILY 08/25/23 11/02/23 (Revlimid) Previous Rx's Medication Instructions Recorded hydrochlorothiazide 25 mg tablet 25 mg PO DAILY CHF #30 tabs 04/12/18 Allergies Allergy/AdvReac Type Severity Reaction Status Date / Time No Known Allergies Allergy Verified 11/02/23 09:05 Worker's Comp Is this a Worker's Comp case?: No [facility] Disclaimer: The information contained in this section may have been updated after the patient was seen, as this information can be updated by other users. Medical History Bilateral leg pain CAD (coronary artery disease) Cardiomyopathy Chest pain Hyperlipidemia Hypertensive heart disease without heart failure Neuropathy MIO (obstructive sleep apnea) PAD (peripheral artery disease) Surgical History History of colonoscopy History of heart bypass surgery Family History Other No significant family history Social History Smoking Status: Never smoker alcohol intake: never substance use type: denies use current occupational status: retired Travel in the last 8 weeks: Inside the [place] household members: spouse housing: house 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: Yes ROS Obtained: Yes All systems reviewed & no additional complaints except as documented and Yes Systems reviewed as appropriate & no additional complaints except as documented Constitutional Constitutional: Reports system reviewed and no additional complaints, except as documented and Reports as per HPI ENT Ears, Nose, Mouth, and Throat: Reports system reviewed and no additional complaints, except as documented and Reports as per HPI Cardiovascular Cardiovascular: Reports system reviewed and no additional complaints, except as documented and Reports as per HPI Respiratory Respiratory: Reports system reviewed and no additional complaints, except as documented and Reports as per HPI Gastrointestinal Gastrointestingal: Reports system reviewed and no additional complaints, except as documented and as per HPI Musculoskeletal Musculoskeletal: Reports system reviewed and no additional complaints, except as documented and Reports as per HPI Comments: Pain in left shoulder, upper arm, elbow and left ribs after falling this morning feeding cattle and landing on his left side Physical Exam General General appearance: alert and in no apparent distress ENT ENT exam: Present mucous membranes moist Expanded Chest Exam Male Torso: 1. reports tenderness since falling earlier today No obvious bruising or swelling noted Respiratory Respiratory exam: Present normal lung sounds bilaterally; Absent respiratory distress or wheezes Cardiovascular Cardiovascular exam: Present regular rate, normal rhythm and normal heart sounds Extremities Exam Extremities exam: Present normal capillary refill Expanded Upper Extremity Exam Left: Shoulder exam: Present tenderness; Absent swelling Arm exam: Present tenderness Elbow exam: Present tenderness Forearm/Wrist exam: Present abrasion Hand exam: Present abrasion Neurological Exam Neurological exam: Present alert, oriented X3 and normal gait Medical Decision Making Ruddy Inquiry Pt receiving controlled substance: No Ruddy was queried for this patient: No Vital Signs: 11/14/23 12:12 Respiratory Rate 21 02 Sat by Pulse Oximetry 98 Oxygen Delivery Method Room Air Orders (Tests/Meds): ORDERS Category Date Time Status Elbow XR left mininum 3 views [XR elbow LT min 3V] Stat Exams 11/14/23 12:06 Taken XR humerus LT Stat Exams 11/14/23 12:06 Taken XR ribs LT min 3V w CXR1V Stat Exams 11/14/23 12:06 Taken XR shoulder LT min 2V Stat Exams 11/14/23 12:06 Taken Radiology Data #1: Image(s): Humerus and Elbow Image Reviewed: Yes I have reviewed radiologist's interpretation Humerus No acute bony abnormality Elbow Degenerative changes with probable joint effusion. No acute bony abnormality #2: Image(s): Shoulder Image Reviewed: Yes I have reviewed radiologist's interpretation IMPRESSION: No acute process. #3: Image(s): Chest (with left ribs) Image Reviewed: Yes I have reviewed radiologist's interpretation IMPRESSION: Left 6 anterolateral rib fracture, age-indeterminate. No pneumothorax.
[2023-11-14 14:11] VITALS: BP 134/65; PULSE 69; RESP 21; TEMP 36.6; O2SAT 97
== END 2023-11-14 14:24 | disposition home or self-care (01) ==
PROVIDERS: Emergency Provider Nurse Practitioner; PCP Family Medicine
DX: R07.81 Pleurodynia (principal); M25.512 Pain in left shoulder; M25.522 Pain in left elbow; I25.10 Atherosclerotic heart disease of native coronary artery without angina pectoris; I42.9 Cardiomyopathy, unspecified; E78.5 Hyperlipidemia, unspecified; I11.9 Hypertensive heart disease without heart failure; G62.9 Polyneuropathy, unspecified; G47.33 Obstructive sleep apnea (adult) (pediatric); I73.9 Peripheral vascular disease, unspecified; W01.0XXA Fall on same level from slipping, tripping and stumbling without subsequent striking against object, initial encounter; S22.32XA Fracture of one rib, left side, initial encounter for closed fracture
CPT/HCPCS: 71101; 73030; 73060; 73080; 99212; 99214; G0463

== ENCOUNTER 2023-12-01 08:12 | Outpatient (CLI) | payer MEDICARE, BC, SELFPAY ==
[2023-12-01 08:20] VITALS: BMI 28.3
--- NOTE | 2023-12-01 08:35 | PC.NURSE ---
0835-pt here for lab draw;rn collected labs via venipuncture stick in right ac with butterfly needle; pt d/c to dr. romeo appointment
[2023-12-01 08:57] LABS: Eosinophils # 0.1 K/mm3 (0.0-0.4); Eosinophils % 6.1 % (0.1-12.0); Hematocrit 38.7 % (42.0-52.0); Hemoglobin 13.1 g/dL (14.1-18.0); Lymphocytes # 0.6 K/mm3 (0.7-4.5); Lymphocytes % 32.3 % (10-50); Mean Corpuscular HGB Conc 33.8 g/dL (31.8-35.4); Mean Corpuscular Hemoglobin 34.1 pg (27.0-31.2); Mean Corpuscular Volume 100.7 fl (80-94); Mean Platelet Volume 8.6 fl (7.4-10.4); Monocytes # 0.2 K/mm3 (0.1-1.0); Monocytes % 10.3 % (1.7-9.3); Neutrophils % 50.2 % (37.0-80.0); Platelet Count 85 K/mm3 (142-424); Red Blood Count 3.84 M/mm3 (4.60-6.20); Red Cell Distribution Width 17.6 % (11.5-17.5)
--- NOTE | 2023-12-01 10:00 | PC.NURSE ---
1000-pt returned from 's office to get extra labs drawn;rn collected labs via venipuncture stick with butterfly needle in right ac. pt d/c home.
[2023-12-01 10:12] LABS: Chloride 102 mmol/L (98-107); Potassium 4.1 mmoL/L (3.5-5.1); Sodium 139 mmol/L (136-145)
[2023-12-01 10:15] LABS: Alanine Aminotransferase 12 U/L (12-78); Albumin Level 4.3 g/dl (3.5-5.0); Albumin/Globulin Ratio 1.2 (1.1-1.8); Alkaline Phosphatase 128 U/L (38-126); Anion Gap 11.1 mEq/L (5-15); Aspartate Amino Transferase 28 U/L (17-59); Bilirubin,Total 0.9 mg/dl (0.2-1.3); Blood Urea Nitrogen 22 mg/dl (9-20); Carbon Dioxide 30 mmol/L (22.0-30.0); Creatinine Clearance Estimated 67 mL/min (50-200); Estimated Glomerular Filt Rate 50 ml/min (>60); GFR (African American) 60 ML/MIN (>60); Globulin 3.5 g/dL (1.3-3.2); Total Protein,Serum 7.8 g/dl (6.3-8.2)
[2023-12-01 10:16] LABS: Calcium 9.2 mg/dl (8.4-10.2); Glucose 121 mg/dl (74-100)
[2023-12-05 16:14] LABS: Immunoglobulin A, Qn 65 mg/dL (61-437); Immunoglobulin G, Qn 1874 mg/dL (603-1613); Immunoglobulin M, Qn 20 mg/dL (15-143)
[2023-12-13 10:05] LABS: Protein, Total 7.5
[2023-12-13 10:06] LABS: Alpha-1-Globulin 0.3; Alpha-2-Globulin 0.6
[2023-12-13 10:07] LABS: Gamma Globulin 1.8
[2023-12-13 10:09] LABS: PDF SCANNED IMAGE
== END 2023-12-01 10:05 | disposition home or self-care (01) ==
PROVIDERS: PCP Family Medicine; Visit Provider Internal Medicine Medical Oncology
DX: D47.2 Monoclonal gammopathy (principal)
CPT/HCPCS: 36415; 80053; 82784; 84155; 84165; 85025; 86334

== ENCOUNTER 2023-12-09 08:15 | Outpatient (CLI) | payer MEDICARE, BC, SELFPAY ==
[2023-12-09 08:18] VITALS: BMI 27.4
--- NOTE | 2023-12-09 08:23 | PC.NURSE ---
0823-collected labs via venipuncture stick with butterfly needle in right ac;pt ok to d/c home rn will call pt with results.
[2023-12-09 08:32] LABS: Basophils % 0.5 % (0.1-2.0); Eosinophils # 0.1 K/mm3 (0.0-0.4); Eosinophils % 2.4 % (0.1-12.0); Hematocrit 41.2 % (42.0-52.0); Hemoglobin 13.8 g/dL (14.1-18.0); Lymphocytes # 0.8 K/mm3 (0.7-4.5); Lymphocytes % 35.3 % (10-50); Mean Corpuscular HGB Conc 33.6 g/dL (31.8-35.4); Mean Corpuscular Hemoglobin 33.6 pg (27.0-31.2); Mean Platelet Volume 8.1 fl (7.4-10.4); Monocytes # 0.4 K/mm3 (0.1-1.0); Monocytes % 14.7 % (1.7-9.3); Neutrophils # 1.1 K/mm3 (1.8-7.8); Platelet Count 128 K/mm3 (142-424); Red Blood Count 4.12 M/mm3 (4.60-6.20); Red Cell Distribution Width 17.2 % (11.5-17.5); White Blood Count 2.4 K/mm3 (4.8-10.8)
== END 2023-12-09 08:26 | disposition home or self-care (01) ==
LOC: INF 08:15
PROVIDERS: PCP Family Medicine; Visit Provider Internal Medicine Medical Oncology
DX: C90.00 Multiple myeloma not having achieved remission (principal)
CPT/HCPCS: 36415; 85025

== ENCOUNTER 2023-12-13 09:22 | Outpatient (CLI) | payer MEDICARE, BC, SELFPAY ==
[2023-12-13 09:26] VITALS: BMI 29.0
--- NOTE | 2023-12-13 09:30 | PC.NURSE ---
0930-COLLECTED LABS VIA VENIPUNCTURE STICK WITH BUTTERFLY NEEDLE IN RIGHT AC; WILL CALL PT WITH RESULTS.
[2023-12-13 09:41] LABS: Basophils % 0.6 % (0.1-2.0); Eosinophils # 0.1 K/mm3 (0.0-0.4); Hematocrit 42.1 % (42.0-52.0); Hemoglobin 14.2 g/dL (14.1-18.0); Lymphocytes # 0.9 K/mm3 (0.7-4.5); Lymphocytes % 31.9 % (10-50); Mean Corpuscular HGB Conc 33.8 g/dL (31.8-35.4); Mean Corpuscular Hemoglobin 33.5 pg (27.0-31.2); Mean Corpuscular Volume 99.2 fl (80-94); Mean Platelet Volume 8.8 fl (7.4-10.4); Monocytes # 0.5 K/mm3 (0.1-1.0); Monocytes % 16.5 % (1.7-9.3); Neutrophils # 1.4 K/mm3 (1.8-7.8); Platelet Count 132 K/mm3 (142-424); Red Blood Count 4.24 M/mm3 (4.60-6.20); Red Cell Distribution Width 17.3 % (11.5-17.5); White Blood Count 2.9 K/mm3 (4.8-10.8)
--- NOTE | 2023-12-13 10:05 | PC.NURSE ---
1005-NOTIFIED PT THAT PER MD ORDER PT OK TO RESTART REVLIMID BASED ON LABS. PT TO F/U WITH DR. ZHAO ON 01/03/24 AT 0915.
== END 2023-12-13 09:35 | disposition home or self-care (01) ==
LOC: INF 09:23
PROVIDERS: PCP Family Medicine; Visit Provider Internal Medicine Medical Oncology
DX: C90.00 Multiple myeloma not having achieved remission (principal)
CPT/HCPCS: 36415; 85025

== ENCOUNTER 2024-01-06 07:35 | Outpatient (CLI) | payer MEDICARE, BC, SELFPAY ==
--- NOTE | 2024-01-06 07:38 | XR_ITS ---
FINAL REPORT CLINICAL HISTORY: Right foot pain COMPARISON: None FINDINGS: RIGHT FOOT: Three views of the right foot were obtained. There is no acute fracture or dislocation. There is moderate to severe degenerative change at the first MTP. There is mild degenerative change elsewhere in the foot. Pes planus is noted. There are small calcaneal spurs. There is no soft tissue abnormality. IMPRESSION: Degenerative changes as above without acute bony abnormality. Reviewed, Interpreted and Dictated by Marlon Lazo III, MD Transcribed by Maddie Nevarez Authenticated and [facility]
--- NOTE | 2024-01-06 07:38 | XR_ITS ---
FINAL REPORT CLINICAL HISTORY: Left foot pain COMPARISON: None FINDINGS: LEFT FOOT: Three views of the left foot were obtained. There is no acute fracture or dislocation. There is moderate degenerative change at the first MTP. There is mild degenerative change elsewhere in the foot. Pes planus is noted. There are small calcaneal spurs. There is no soft tissue abnormality. IMPRESSION: Degenerative changes without acute bony abnormality. Reviewed, Interpreted and Dictated by Marlon Lazo III, MD Transcribed by Maddie Nevarez Authenticated and [facility]
== END 2024-01-06 23:59 ==
PROVIDERS: PCP Family Medicine; Visit Provider Nurse Practitioner
DX: M79.671 Pain in right foot; M79.672 Pain in left foot
CPT/HCPCS: 73630

== ENCOUNTER 2024-01-10 08:16 | Outpatient (CLI) | payer MEDICARE, BC, SELFPAY ==
[2024-01-10 08:27] VITALS: BMI 28.8
[2024-01-10 09:09] LABS: Basophils % 1.7 % (0.1-2.0); Eosinophils # 0.1 K/mm3 (0.0-0.4); Eosinophils % 2.8 % (0.1-12.0); Hematocrit 44.1 % (42.0-52.0); Hemoglobin 14.4 g/dL (14.1-18.0); Lymphocytes # 0.6 K/mm3 (0.7-4.5); Lymphocytes % 23.4 % (10-50); Mean Corpuscular HGB Conc 32.7 g/dL (31.8-35.4); Mean Corpuscular Hemoglobin 33.9 pg (27.0-31.2); Mean Corpuscular Volume 103.6 fl (80-94); Mean Platelet Volume 8.1 fl (7.4-10.4); Monocytes # 0.2 K/mm3 (0.1-1.0); Monocytes % 10.3 % (1.7-9.3); Neutrophils # 1.5 K/mm3 (1.8-7.8); Neutrophils % 61.7 % (37.0-80.0); Platelet Count 133 K/mm3 (142-424); Red Blood Count 4.25 M/mm3 (4.60-6.20); Red Cell Distribution Width 16.5 % (11.5-17.5); White Blood Count 2.4 K/mm3 (4.8-10.8)
--- NOTE | 2024-01-10 09:23 | PC.NURSE ---
01/10/24 0850 Pt presents today prior to md appt with oncologist to have blood drawn for labs as ordered. Venipuncture performed using butterlfy access needle to pt's rt ac x 1 stick. Blood drawn for labs as ordered and sent to lab for analysis. Needle withdrawn and site secured with 2x2 gauze and coban. Pt able to ambulate self to specialty clinic.
[2024-01-11 05:10] LABS: Immunoglobulin A, Qn 68 mg/dL (61-437); Immunoglobulin G, Qn 2261 mg/dL (603-1613); Immunoglobulin M, Qn 20 mg/dL (15-143)
[2024-01-11 16:22] LABS: Albumin 3.8 g/dL (2.9-4.4); Alpha-1-Globulin 0.3 g/dL (0.0-0.4); Alpha-2-Globulin 0.8 g/dL (0.4-1.0); Gamma Globulin 1.9 g/dL (0.4-1.8); Immunoglobulin A, Qn 58 mg/dL (61-437); Immunoglobulin G, Qn 1832 mg/dL (603-1613); Immunoglobulin M, Qn 15 mg/dL (15-143); Protein, Total 7.7 g/dL (6.0-8.5)
[2024-01-12 09:31] LABS: Free Kappa Lt Chains 198.8; Free Lambda Lt Chains 14.2
[2024-01-12 09:32] LABS: PDF SCANNED IMAGE
[2024-01-13 07:43] LABS: Beta-2 Microglobulin 2.7 mg/L (0.6-2.4)
== END 2024-01-10 08:55 | disposition home or self-care (01) ==
LOC: INF 08:17
PROVIDERS: PCP Family Medicine; Visit Provider Internal Medicine Medical Oncology
DX: D47.2 Monoclonal gammopathy (principal); Z79.899 Other long term (current) drug therapy
CPT/HCPCS: 36415; 82232; 82784; 83883; 84155; 84165; 85025; 86334

== ENCOUNTER 2024-02-07 08:02 | Outpatient (CLI) | payer MEDICARE, BC, SELFPAY ==
[2024-02-07 08:12] VITALS: BMI 29.1
--- NOTE | 2024-02-07 08:25 | PC.NURSE ---
0825-collected labs via venipuncture stick in right ac with butterfly needle; pt to oncology appointment.
[2024-02-07 08:37] LABS: Basophils % 1.3 % (0.1-2.0); Eosinophils # 0.1 K/mm3 (0.0-0.4); Hematocrit 44.8 % (42.0-52.0); Hemoglobin 14.4 g/dL (14.1-18.0); Lymphocytes # 0.8 K/mm3 (0.7-4.5); Lymphocytes % 26.1 % (10-50); Mean Corpuscular HGB Conc 32.1 g/dL (31.8-35.4); Mean Corpuscular Volume 102.8 fl (80-94); Mean Platelet Volume 8.2 fl (7.4-10.4); Monocytes # 0.3 K/mm3 (0.1-1.0); Monocytes % 11.7 % (1.7-9.3); Neutrophils # 1.7 K/mm3 (1.8-7.8); Platelet Count 108 K/mm3 (142-424); Red Blood Count 4.36 M/mm3 (4.60-6.20); Red Cell Distribution Width 16.5 % (11.5-17.5); White Blood Count 2.9 K/mm3 (4.8-10.8)
[2024-02-07 08:59] LABS: Chloride 105 mmol/L (98-107); Sodium 139 mmol/L (136-145)
[2024-02-07 09:00] LABS: Potassium 4.3 mmoL/L (3.5-5.1)
[2024-02-07 09:02] LABS: Alanine Aminotransferase 16 U/L (12-78); Albumin/Globulin Ratio 1.1 (1.1-1.8); Alkaline Phosphatase 122 U/L (38-126); Anion Gap 6.3 mEq/L (5-15); Aspartate Amino Transferase 68 U/L (17-59); Bilirubin,Total 0.9 mg/dl (0.2-1.3); Blood Urea Nitrogen 19 mg/dl (9-20); Carbon Dioxide 32 mmol/L (22.0-30.0); Creatinine Clearance Estimated 82 mL/min (50-200); Estimated Glomerular Filt Rate 66 ml/min (>60); GFR (African American) 79 ML/MIN (>60); Globulin 3.8 g/dL (1.3-3.2); Total Protein,Serum 7.8 g/dl (6.3-8.2)
[2024-02-07 09:03] LABS: Calcium 9.3 mg/dl (8.4-10.2); Glucose 148 mg/dl (74-100)
[2024-02-08 15:50] LABS: Albumin 3.8 g/dL (2.9-4.4); Alpha-1-Globulin 0.2 g/dL (0.0-0.4); Alpha-2-Globulin 0.6 g/dL (0.4-1.0); Immunoglobulin A, Qn 61 mg/dL (61-437); Immunoglobulin G, Qn 2398 mg/dL (603-1613); Immunoglobulin M, Qn 20 mg/dL (15-143); Protein, Total 7.3 g/dL (6.0-8.5)
[2024-02-09 08:43] LABS: PDF SCANNED IMAGE
== END 2024-02-07 08:30 | disposition home or self-care (01) ==
LOC: INF 08:03
PROVIDERS: PCP Family Medicine; Visit Provider Internal Medicine Medical Oncology
DX: D47.2 Monoclonal gammopathy (principal); Z79.899 Other long term (current) drug therapy
CPT/HCPCS: 36415; 80053; 82784; 84155; 84165; 85025; 86334

== ENCOUNTER 2024-03-06 08:11 | Outpatient (CLI) | payer MEDICARE, BC, SELFPAY ==
[2024-03-06 08:16] VITALS: BMI 28.5
--- NOTE | 2024-03-06 08:20 | PC.NURSE ---
0820-collected labs via venipuncture stick in right ac with butterfly needle;pt to oncology appointment.
[2024-03-06 08:33] LABS: Basophils % 1.4 % (0.1-2.0); Eosinophils # 0.2 K/mm3 (0.0-0.4); Eosinophils % 5.3 % (0.1-12.0); Hematocrit 45.2 % (42.0-52.0); Hemoglobin 14.4 g/dL (14.1-18.0); Lymphocytes # 0.9 K/mm3 (0.7-4.5); Lymphocytes % 30.5 % (10-50); Mean Corpuscular HGB Conc 31.9 g/dL (31.8-35.4); Mean Corpuscular Hemoglobin 32.7 pg (27.0-31.2); Mean Corpuscular Volume 102.3 fl (80-94); Mean Platelet Volume 7.3 fl (7.4-10.4); Monocytes # 0.3 K/mm3 (0.1-1.0); Monocytes % 11.8 % (1.7-9.3); Neutrophils # 1.5 K/mm3 (1.8-7.8); Platelet Count 126 K/mm3 (142-424); Red Blood Count 4.42 M/mm3 (4.60-6.20); Red Cell Distribution Width 16.9 % (11.5-17.5); White Blood Count 2.9 K/mm3 (4.8-10.8)
[2024-03-06 08:43] LABS: Alanine Aminotransferase 12 U/L (12-78); Albumin Level 4.1 g/dl (3.5-5.0); Alkaline Phosphatase 118 U/L (38-126); Anion Gap 10.3 mEq/L (5-15); Aspartate Amino Transferase 43 U/L (17-59); Bilirubin,Total 0.7 mg/dl (0.2-1.3); Blood Urea Nitrogen 20 mg/dl (9-20); Calcium 9.2 mg/dl (8.4-10.2); Carbon Dioxide 33 mmol/L (22.0-30.0); Chloride 102 mmol/L (98-107); Creatinine Clearance Estimated 63 mL/min (50-200); Estimated Glomerular Filt Rate 50 ml/min (>60); GFR (African American) 60 ML/MIN (>60); Globulin 4.2 g/dL (1.3-3.2); Glucose 127 mg/dl (74-100); Potassium 4.3 mmoL/L (3.5-5.1); Sodium 141 mmol/L (136-145); Total Protein,Serum 8.3 g/dl (6.3-8.2)
[2024-03-08 15:11] LABS: Albumin 3.6 g/dL (2.9-4.4); Alpha-1-Globulin 0.3 g/dL (0.0-0.4); Alpha-2-Globulin 0.7 g/dL (0.4-1.0); Gamma Globulin 2.5 g/dL (0.4-1.8); Protein, Total 7.8 g/dL (6.0-8.5)
[2024-03-08 16:13] LABS: Immunoglobulin A, Qn 53 mg/dL (61-437); Immunoglobulin G, Qn 2746 mg/dL (603-1613); Immunoglobulin M, Qn 15 mg/dL (15-143)
[2024-03-17 10:16] LABS: PDF SCANNED IMAGE
== END 2024-03-06 08:30 | disposition home or self-care (01) ==
LOC: INF 08:12
PROVIDERS: PCP Family Medicine; Visit Provider Internal Medicine Medical Oncology
DX: C90.00 Multiple myeloma not having achieved remission (principal); D47.2 Monoclonal gammopathy; Z79.899 Other long term (current) drug therapy
CPT/HCPCS: 36415; 80053; 82784; 84155; 84165; 85025; 86334

== ENCOUNTER 2024-03-16 06:58 | Outpatient (CLI) | payer MEDICARE, BC, SELFPAY ==
[2024-03-16] VITALS (10 sets, daily range): BP systolic 91–153; BP diastolic 30–81; PULSE 50–69; RESP 16–18; TEMP 36.1–36.2; O2SAT 94–100; BMI 28.5
--- NOTE | 2024-03-16 07:02 | CT_ITS ---
FINAL REPORT CLINICAL HISTORY: bone marrow biopsy for multiple myeloma 2versed and 50 fentanyl FINDINGS: CT GUIDED BONE MARROW ASPIRATION AND CORE BIOPSY. HISTORY: Multiple myeloma ATTENDING PHYSICIAN: Dr. Lazo PHYSICIAN AUDIT CLERKS SUPERVISOR: Kiran Lee PA-C PROCEDURE: After informed consent was obtained and a timeout was performed, the patient was prepped and draped in usual sterile fashion over the left pelvis. Utilizing local anesthesia and sterile technique with a drill coaxial system, access to left iliac bone was obtained. Bone marrow aspirate was obtained. In addition, a large core biopsy of the left iliac bone was obtained. The patient received moderate procedural sedation. The patient tolerated the procedure well and left the department in good condition. PROCEDURAL SEDATION: 2 mg of IV Versed and 50 mcg of Fentanyl were administered. Continuous vital sign monitoring was used. An RN was present during the sedation process. Overall sedation time was 15 minutes. IMPRESSION: Status post CT guided bone marrow aspiration and core biopsy without immediate complication. Films reviewed , interpreted and dictated by Dr. Lazo. Transcribed by Kiran Lee PA-C. Reviewed, Interpreted and Dictated by Marlon Lazo III, MD Transcribed by CARLOS Moss Authenticated and [facility]
[2024-03-16 08:14] LABS: Activated Partial Thrombo Time 25.9 seconds (22.8-30.6); INR 1.28 (0.9-1.1); Prothrombin Time 13.6 seconds (10.1-12.5)
--- NOTE | 2024-03-16 09:10 | PC.NURSE ---
Report received from French Bernal Rn. Pt had bone marrow biopsy. Pt resting in bed. Pt denies any pain. Dressing noted to lower back. 4x4 and tegaderm. dressing C/D/I. No needs or concerns voiced.
--- NOTE | 2024-03-16 09:25 | PC.NURSE ---
Pt resting in bed. Dressing C/D/I. No needs or concerns voiced.
--- NOTE | 2024-03-16 09:40 | PC.NURSE ---
No needs or concerns voiced. Pt sitting up in bed drinking water. Dressing C/D/I.
--- NOTE | 2024-03-16 09:55 | PC.NURSE ---
Pt resting in bed with eyes closed. No needs or concerns voiced.
--- NOTE | 2024-03-16 10:10 | PC.NURSE ---
Pt resting in bed. No needs or concerns voiced. at bedside. Dressing C/D/I.
[2024-03-17 15:03] LABS: POC Glucose,Bedside 118 (70-110)
== END 2024-03-16 10:36 | disposition home or self-care (01) ==
PROVIDERS: PCP Family Medicine; Visit Provider Internal Medicine Medical Oncology
DX: D47.2 Monoclonal gammopathy (principal); R79.1 Abnormal coagulation profile; E11.9 Type 2 diabetes mellitus without complications
CPT/HCPCS: 38221; 77012; 82962; 85610; 85730

== ENCOUNTER 2024-03-22 09:11 | Emergency (ER) | payer MEDICARE, BC, SELFPAY ==
[2024-03-22 09:20] VITALS: BP 127/65; PULSE 37; RESP 22; TEMP 36.8; O2SAT 98; BMI 28.5
--- NOTE | 2024-03-22 09:22 | ED_ITS ---
Discharge Plan Disposition Patient Disposition: Home, Self-Care Condition: Good Prescriptions Prescriptions: No Action tamsulosin 0.4 mg capsule 0.4 mg PO DAILY Jardiance 10 mg tablet 10 mg PO DAILY amitriptyline 25 mg tablet 100 mg PO HS Patient Comments: TAKE FOUR TABLETS BY MOUTH EVERY NIGHT lenalidomide [Revlimid] 10 mg capsule 10 mg PO DAILY carbidopa-levodopa 25-100 mg tablet 1 tab PO DAILY pregabalin 50 mg capsule 50 mg PO TID Patient Comments: TAKE ONE CAPSULE BY MOUTH THREE TIMES DAILY MAY CAUSE DROWSINESS hydrochlorothiazide 12.5 mg tablet 12.5 mg PO DAILY Qty: 90 3RF urea 40 % cream 1 applic topical BID 30 Days Qty: 28 3RF atorvastatin 40 mg tablet 40 mg PO HS omeprazole 40 mg capsule,delayed release(DR/EC) 40 mg PO DAILY Patient Comments: TAKE ONE CAPSULE BY MOUTH EVERY DAY prochlorperazine maleate 10 mg tablet 10 mg PO Q6HP PRN (Reason: Nausea) Patient Comments: TAKE ONE TABLET BY MOUTH EVERY 4 HOURS NEEDED FOR NAUSEA AND VOMITING levothyroxine 75 mcg tablet 75 mcg PO DAILY furosemide 20 mg tablet See Rx Instructions .ROUTE .COMPLEX PRN (Reason: Fluid) Rx Instructions: TAKE ONE TABLET BY MOUTH every other DAY ON tuesday, tuesday, AND tuesday ONLY PRN; losartan 50 mg tablet 50 mg PO DAILY Qty: 30 3RF bisoprolol fumarate 5 MG tablet 5 mg PO DAILY aspirin 81 mg Tablet,Chewable 81 mg PO DAILY Referrals Follow up/Referrals: Kai Shea MD [Primary Care Provider] - See instructions Activity Restrictions/Add. Instructions Additional Instructions/Restrictions: Use the incentive spirometer as directed. (He refused it). Take tylenol or ibuprofen (if you can take this) for pain. Take tylenol for pain or fever. Follow up with your regular doctor. GO TO THE ER FOR ANY WORSENING SYMPTOMS Clinical Impressions Clinical Impression: Left rib fracture Instructions Patient Instructions: DI for Rib Fracture, Rib Fracture Discharge ED Provider: Abimael Chakraborty [facility] General Stated complaint: AO Fall 03/19 back pain rib pain Time Seen by Provider: 03/22/24 09:22 History of Present Illness Provider Complaint: He states that on 03/19 he fell while taking a shower. He came down on the left side of his chest. Since then he has had left sided rib pain and left sided upper back pain. He denies shortness of breath. He denies neck pain or hitting his head. He denies any other injury or complaints. Related Data Home Medications Medication Instructions Recorded Confirmed atorvastatin 40 mg tablet 40 mg PO HS Cholesterol 12/20/17 03/20/24 tamsulosin 0.4 mg capsule 0.4 mg PO DAILY prostate 07/03/19 03/20/24 bisoprolol fumarate 5 mg tablet 5 mg PO DAILY bp 01/08/21 03/20/24 omeprazole 40 mg capsule,delayed 40 mg PO DAILY GERD 02/16/21 03/20/24 release prochlorperazine maleate 10 mg 10 mg PO Q6HP PRN Nausea 08/17/21 03/20/24 tablet levothyroxine 75 mcg tablet 75 mcg PO DAILY thyroid supplement 12/16/22 03/20/24 empagliflozin 10 mg tablet 10 mg PO DAILY Diabetes 01/21/23 03/20/24 (Jardiance) amitriptyline 25 mg tablet 100 mg PO HS 08/25/23 03/20/24 carbidopa 25 mg-levodopa 100 mg 1 tab PO DAILY tremors 08/25/23 03/20/24 tablet lenalidomide 10 mg capsule 10 mg PO DAILY 08/25/23 03/20/24 (Revlimid) furosemide 20 mg tablet See Rx Instructions .Route 12/21/23 03/20/24 .COMPLEX PRN Fluid pregabalin 50 mg capsule 50 mg PO TID 01/10/24 03/20/24 aspirin 81 mg chewable tablet 81 mg PO DAILY 03/16/24 03/20/24 Previous Rx's Medication Instructions Recorded losartan 50 mg tablet 50 mg PO DAILY #30 tabs 12/21/23 urea 40 % topical cream 1 applic topical BID 30 days #28 01/10/24 grams hydrochlorothiazide 12.5 mg tablet 12.5 mg PO DAILY CHF #90 tabs 03/20/24 Allergies Allergy/AdvReac Type Severity Reaction Status Date / Time No Known Allergies Allergy Verified 03/20/24 08:46 [facility] Disclaimer: The information contained in this section may have been updated after the patient was seen, as this information can be updated by other users. Medical History Parkinson disease DM2 (diabetes mellitus, type 2) Chest pain CAD (coronary artery disease) Cardiomyopathy Bilateral leg pain PAD (peripheral artery disease) MIO (obstructive sleep apnea) Hyperlipidemia Hypertensive heart disease without heart failure Neuropathy Surgical History History of colonoscopy History of heart bypass surgery Family History Other No significant family history Social History Smoking Status: Never smoker alcohol intake: never substance use type: denies use current occupational status: retired Travel in the last 8 weeks: Inside the [place] household members: spouse housing: house 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: Yes ROS Obtained: Yes All systems reviewed & no additional complaints except as documented Constitutional Constitutional: Denies chills and Denies fever(s) Eyes Eyes: Denies eye discharge ENT Ears, Nose, Mouth, and Throat: Denies dizziness, Denies otalgia and Denies sore throat Cardiovascular Cardiovascular: Reports as per HPI Respiratory Respiratory: Denies shortness of breath, Denies chest congestion, Denies cough, Denies stridor and Denies wheezing Gastrointestinal Gastrointestingal: Denies nausea or vomiting Musculoskeletal Musculoskeletal: Reports as per HPI Integumentary/Breasts Skin/Breast: Denies rash Neurologic Neurologic: Denies dizziness and Denies paresthesias Allergic/Immunologic Allergic/Immunologic: Denies wheezing Physical Exam General General appearance: alert and in no apparent distress Head Head exam: atraumatic, normocephalic and normal inspection Eye Eye exam: Present normal appearance, PERRL and EOMI ENT ENT exam: Present normal exam, normal oropharynx, mucous membranes moist, TM's normal bilaterally and normal external ear exam Neck Neck exam: Present normal inspection, full ROM and trachea midline; Absent meningismus or lymphadenopathy Chest Chest inspection: Present symmetric chest wall rise, tenderness and other (mild bruising of the left side of his chest noted. ) Respiratory Respiratory exam: Present normal lung sounds bilaterally; Absent respiratory distress, wheezes, stridor or accessory muscle use Cardiovascular Cardiovascular exam: Present regular rate and normal rhythm; Absent JVD Abdominal Exam Abdominal exam: Present soft and normal bowel sounds; Absent distention, tenderness or guarding Extremities Exam Extremities exam: Present normal inspection, full ROM and normal capillary refill; Absent calf tenderness Back Exam Back exam: Present normal inspection; Absent tenderness, CVA tenderness (R), CVA tenderness (L) or muscle spasm Neurological Exam Neurological exam: Present alert and oriented X3 Psychiatric Psychiatric exam: Present normal affect and normal mood Skin Skin exam: Present warm, dry, intact and normal color Lymphatic Lymphatic Findings: no adenopathy Medical Decision Making Ruddy Inquiry Pt receiving controlled substance: No Radiology Data #1: Image(s): Chest Image Reviewed: Yes I reviewed the patient's radiology image and Yes I have reviewed radiologist's interpretation Preliminary Findings: Abnormal Accession No. : [id number] Patient Name / ID : Sosa Figueroa / [id number] Exam Date : 03/22/2024 09:45:31 ( Final ) Study Comment : Sex / Age : M / [id number] Creator : OWEN BERTRAND Dictator : Director Of Strategic Programs : Dairy Helper : OWEN BERTRAND Approver2 : Report Date : 03/22/2024 11:22:47 My Comment : FINAL REPORT CLINICAL HISTORY: FELL TUESDAY NIGHT COMPARISON: 11/14/2023 FINDINGS: 3 views of the left ribs were obtained. There is a subtle nondisplaced fracture of the left 10th rib. The visualized lungs are clear. No pneumothorax is identified. Left-sided pacer is present. IMPRESSION: Subtle nondisplaced left 10th rib fracture. Reviewed, Interpreted and Dictated by Owen Bertrand MD Transcribed by Maddie Nevarez Authenticated and . [facility] Medical Decision Narrative: It was explained to him that we are awaiting the radiologist's read on his x- rays. He stated that he did not want to wait any longer. He left without getting his discharge papers. He refused an incentive spirometer.
--- NOTE | 2024-03-22 09:35 | ECG_ITS ---
APPROVED REPORT Exam: Resting ECG HR:72 bpm ECG Measurements Heart Rate 72 AXES SC 225 P 242 QRSd 157 QRS 192 QT 429 T 90 QTc 453 Conclusion ELECTRONIC ATRIAL PACEMAKER ELECTRONIC VENTRICULAR PACEMAKER ABNORMAL RHYTHM ECG Electronically signed by : MIRZA GUERRERO, 03/24/2024 04:38:44
[2024-03-22 09:38] VITALS: PULSE 62
--- NOTE | 2024-03-22 09:39 | XR_ITS ---
FINAL REPORT CLINICAL HISTORY: FELL TUESDAY NIGHT COMPARISON: 11/14/2023 FINDINGS: 3 views of the left ribs were obtained. There is a subtle nondisplaced fracture of the left 10th rib. The visualized lungs are clear. No pneumothorax is identified. Left-sided pacer is present. IMPRESSION: Subtle nondisplaced left 10th rib fracture. Reviewed, Interpreted and Dictated by Jim Bertrand MD Transcribed by Maddie Nevarez Authenticated and [facility]
--- NOTE | 2024-03-22 09:39 | XR_ITS ---
FINAL REPORT CLINICAL HISTORY: FELL TUESDAY NIGHT COMPARISON: None FINDINGS: Three views of the thoracic spine were obtained. There is no fracture present. There is no malalignment. The disc spaces are preserved. The vertebrae are normal in height. Incidental note is made of a left-sided pacer and sternotomy wires. IMPRESSION: No acute process. Reviewed, Interpreted and Dictated by Jim Bertrand MD Transcribed by Maddie Nevarez Authenticated and [facility]
[2024-03-22 11:40] VITALS: BP 127/65; PULSE 62; RESP 22; TEMP 36.8; O2SAT 98
--- NOTE | 2024-03-22 11:45 | PC.NURSE ---
PATIENT NOTIFIED PER PROVIDER OF XRAY RESULTS. PROVIDER INFORMED PATIENT THAT HE NEEDED AN INCENTIVE SPIROMETER. PATIENT STATES HE HAD ANOTHER APPOINTMENT HE WAS LATE FOR AND DIDN'T WANT TO WAIT AND LEFT WITHOUT HIS INCENTIVE SPIROMETER.
== END 2024-03-22 11:45 | disposition home or self-care (01) ==
PROVIDERS: Emergency Provider Nurse Practitioner Family; PCP Family Medicine
DX: S22.32XA Fracture of one rib, left side, initial encounter for closed fracture (principal); R07.81 Pleurodynia; M54.6 Pain in thoracic spine; W18.2XXA Fall in (into) shower or empty bathtub, initial encounter
CPT/HCPCS: 71101; 72072; 93005; 99212; 99214; G0463

== ENCOUNTER 2024-03-30 06:17 | Outpatient (CLI) | payer MEDICARE, BC, SELFPAY ==
--- NOTE | 2024-03-30 | CT_ITS ---
FINAL REPORT TECHNIQUE: Whole-body PET-CT with low-dose imaging. Exam is tailored toward osseous imaging. CLINICAL HISTORY: smoldering myeloma COMPARISON: 01/19/2023 FINDINGS: There is a lytic lesion of the right pubic symphysis measuring 37 x 23 mm. There is a lytic lesion in the left glenoid measuring 34 x 12 mm. There is a superior endplate compression fracture of L3 with possible underlying lytic lesion. These bony lesions are new compared to the prior study. There is a lytic lesion in the lateral left 6th rib with associated nondisplaced fracture. There is a left posterior 8th rib fracture with a questionable small underlying lytic lesion. IMPRESSION: Interval development of multiple lytic lesions as above compatible with reported myelomatous disease. Left 6th and 8th rib fractures. Reviewed, Interpreted and Dictated by Katlin Chiang MD Transcribed by Maddie Nevarez Authenticated and [facility]
[2024-03-30 08:12] VITALS: BMI 28.6
--- NOTE | 2024-03-30 11:02 | PC.NURSE ---
0820-BLOOD DRAWN WITH BUTTERFLY NEEDLE TO CHECK LABS PER DR ZHAO.
[2024-03-31 09:42] LABS: Immunoglobulin A, Qn 47 mg/dL (61-437); Immunoglobulin G, Qn 3746 mg/dL (603-1613); Immunoglobulin M, Qn 15 mg/dL (15-143)
[2024-04-02 14:59] LABS: Albumin 3.7 g/dL (2.9-4.4); Alpha-1-Globulin 0.3 g/dL (0.0-0.4); Alpha-2-Globulin 0.8 g/dL (0.4-1.0); Gamma Globulin 3.9 g/dL (0.4-1.8); Immunoglobulin A, Qn 51 mg/dL (61-437); Immunoglobulin G, Qn 3748 mg/dL (603-1613); Immunoglobulin M, Qn 13 mg/dL (15-143); Protein, Total 9.6 g/dL (6.0-8.5)
[2024-04-11 08:45] LABS: Free Kappa Lt Chains 290.2
[2024-04-11 08:45] LABS: PDF SCANNED IMAGE
[2024-04-11 08:46] LABS: Free Lambda Lt Chains 6.5
== END 2024-03-30 08:25 | disposition home or self-care (01) ==
LOC: RAD 06:18 → INF 07:05
PROVIDERS: PCP Family Medicine; Visit Provider Internal Medicine Medical Oncology
DX: D47.2 Monoclonal gammopathy (principal)
CPT/HCPCS: 36415; 76497; 82784; 83883; 84155; 84165; 86334

== ENCOUNTER 2024-04-03 09:43 | Outpatient (CLI) | payer MEDICARE, BC, SELFPAY ==
[2024-04-03 09:45] VITALS: BMI 29.0
[2024-04-03 10:07] LABS: Chloride 102 mmol/L (98-107); Potassium 4.4 mmoL/L (3.5-5.1); Sodium 137 mmol/L (136-145)
[2024-04-03 10:09] LABS: Blood Urea Nitrogen 20 mg/dl (9-20)
[2024-04-03 10:10] LABS: Alanine Aminotransferase 8 U/L (12-78); Albumin Level 3.8 g/dl (3.5-5.0); Albumin/Globulin Ratio 0.7 (1.1-1.8); Alkaline Phosphatase 120 U/L (38-126); Anion Gap 5.4 mEq/L (5-15); Aspartate Amino Transferase 28 U/L (17-59); Bilirubin,Total 0.6 mg/dl (0.2-1.3); Calcium 9.2 mg/dl (8.4-10.2); Carbon Dioxide 34 mmol/L (22.0-30.0); Creatinine Clearance Estimated 69 mL/min (50-200); Estimated Glomerular Filt Rate 54 ml/min (>60); GFR (African American) 65 ML/MIN (>60); Globulin 5.2 g/dL (1.3-3.2); Glucose 132 mg/dl (74-100)
[2024-04-03 10:50] LABS: Basophils % 0.5 % (0.1-2.0); Eosinophils # 0.1 K/mm3 (0.0-0.4); Eosinophils % 2.6 % (0.1-12.0); Hematocrit 42.3 % (42.0-52.0); Lymphocytes # 0.9 K/mm3 (0.7-4.5); Lymphocytes % 20.4 % (10-50); Mean Corpuscular Hemoglobin 33.7 pg (27.0-31.2); Mean Corpuscular Volume 102.2 fl (80-94); Monocytes # 0.3 K/mm3 (0.1-1.0); Monocytes % 8.2 % (1.7-9.3); Neutrophils # 2.9 K/mm3 (1.8-7.8); Neutrophils % 68.3 % (37.0-80.0); Platelet Count 130 K/mm3 (142-424); Red Blood Count 4.14 M/mm3 (4.60-6.20); Red Cell Distribution Width 17.5 % (11.5-17.5); White Blood Count 4.2 K/mm3 (4.8-10.8)
== END 2024-04-03 09:55 | disposition home or self-care (01) ==
LOC: INF 09:44
PROVIDERS: PCP Internal Medicine Medical Oncology; Visit Provider Internal Medicine Medical Oncology
DX: D47.2 Monoclonal gammopathy (principal); C90.00 Multiple myeloma not having achieved remission
CPT/HCPCS: 36415; 80053; 85025

== ENCOUNTER 2024-04-10 08:37 | Outpatient (CLI) | payer MEDICARE, BC, SELFPAY ==
[2024-04-10] MEDS: PROCHLORPERAZINE 10MG TABLET 10 MG PO (08:45)
[2024-04-10] MEDS: BORTEZOMIB 3.5MG VIAL 2.9 MG SQ (09:09)
[2024-04-10 09:18] VITALS: BP 124/68; PULSE 59; RESP 18; TEMP 36.8; O2SAT 97
== END 2024-04-10 09:35 | disposition home or self-care (01) ==
LOC: INF 08:39
PROVIDERS: PCP Internal Medicine Medical Oncology; Visit Provider Internal Medicine Medical Oncology
DX: C90.00 Multiple myeloma not having achieved remission (principal)
CPT/HCPCS: 96401; J9041; Q0164

== ENCOUNTER 2024-04-17 08:25 | Outpatient (CLI) | payer MEDICARE, BC, SELFPAY ==
[2024-04-17 09:08] VITALS: BP 121/68; PULSE 80; RESP 18; TEMP 36.6; O2SAT 95
== END 2024-04-17 09:08 | disposition home or self-care (01) ==
LOC: INF 08:26
PROVIDERS: PCP Family Medicine; Visit Provider Internal Medicine Medical Oncology
DX: C90.00 Multiple myeloma not having achieved remission (principal); Z51.12 Encounter for antineoplastic immunotherapy; Z79.620 Long term (current) use of immunosuppressive biologic; Z79.899 Other long term (current) drug therapy
CPT/HCPCS: 96372; 96401; J0897; J9041; Q0164

== ENCOUNTER 2024-04-23 07:31 | Outpatient (CLI) | payer MEDICARE, BC, SELFPAY ==
--- NOTE | 2024-04-23 07:36 | US_ITS ---
FINAL REPORT CLINICAL HISTORY: Decreased Pedal Pulses, DM-neuropathy, Claudication COMPARISON: 03/07/2023 FINDINGS: LOWER EXTREMITY SEGMENTAL PRESSURE MEASUREMENTS FINDINGS: Pressure indices are as follows: RIGHT LOWER EXTREMITY: Upper thigh: 1.26 Calf: 1.77 Ankle, posterior tibial artery: Not compressible, likely due to severe calcified plaque. Ankle, dorsalis pedis: 1.53 Toe: 0.49 Comments: Posterior tibial artery not compressible, likely due to severe calcified plaque. LEFT LOWER EXTREMITY: Upper thigh: 1.11 Calf: Not compressible, likely due to severe calcified plaque. Ankle, posterior tibial artery: Noncompressible, likely due to severe calcified plaque. Ankle, dorsalis pedis: 1.68 Toe: 0.64 Comments: Upper calf and posterior tibial artery at the ankle are noncompressible, likely due to severe calcified plaque. IMPRESSION: As described above, noncompressible vessels in the calf and ankle are likely due to severe calcified plaque. Reviewed, Interpreted and Dictated by Katlin Chiang MD Transcribed by Tammie Donald Authenticated and [facility]
== END 2024-04-23 23:59 | disposition home or self-care (01) ==
LOC: RT 07:32
PROVIDERS: PCP Family Medicine; Visit Provider Nurse Practitioner
DX: R09.89 Other specified symptoms and signs involving the circulatory and respiratory systems (principal)
CPT/HCPCS: 93923

== ENCOUNTER 2024-04-24 07:51 | Outpatient (CLI) | payer MEDICARE, BC, SELFPAY ==
[2024-04-24] MEDS: PROCHLORPERAZINE 10MG TABLET 10 MG PO (08:15)
[2024-04-24] MEDS: BORTEZOMIB 3.5MG VIAL 2.9 MG SQ (08:35)
[2024-04-24 08:45] VITALS: BP 138/90; PULSE 72; RESP 18; TEMP 36.8; O2SAT 96
== END 2024-04-24 09:00 | disposition home or self-care (01) ==
LOC: INF 07:52
PROVIDERS: PCP Family Medicine; Visit Provider Internal Medicine Medical Oncology
DX: D47.2 Monoclonal gammopathy (principal); C90.00 Multiple myeloma not having achieved remission
CPT/HCPCS: 96401; J9041; Q0164

== ENCOUNTER 2024-05-03 10:42 | Emergency (ER) | payer MEDICARE, BC, SELFPAY ==
[2024-05-03] VITALS (9 sets, daily range): BP systolic 107–147; BP diastolic 66–79; PULSE 97–127; RESP 16–29; TEMP 37.2; O2SAT 87–96; BMI 28.5
--- NOTE | 2024-05-03 10:46 | PC.NURSE ---
DR GUERRERO AT BEDSIDE
--- NOTE | 2024-05-03 10:49 | ED_ITS ---
Discharge Plan Disposition Patient Disposition: Xfer Short-Term Hosp Prescriptions Prescriptions: No Action tamsulosin 0.4 mg capsule 0.4 mg PO DAILY Jardiance 10 mg tablet 10 mg PO DAILY amitriptyline 25 mg tablet 100 mg PO HS Patient Comments: TAKE FOUR TABLETS BY MOUTH EVERY NIGHT carbidopa-levodopa 25-100 mg tablet 1 tab PO DAILY pregabalin 50 mg capsule 50 mg PO TID Patient Comments: TAKE ONE CAPSULE BY MOUTH THREE TIMES DAILY MAY CAUSE DROWSINESS hydrochlorothiazide 12.5 mg tablet 12.5 mg PO DAILY Qty: 90 3RF atorvastatin 40 mg tablet 40 mg PO HS omeprazole 40 mg capsule,delayed release(DR/EC) 40 mg PO DAILY Patient Comments: TAKE ONE CAPSULE BY MOUTH EVERY DAY prochlorperazine maleate 10 mg tablet 10 mg PO Q6HP PRN (Reason: Nausea) Patient Comments: TAKE ONE TABLET BY MOUTH EVERY 4 HOURS NEEDED FOR NAUSEA AND VOMITING levothyroxine 75 mcg tablet 75 mcg PO DAILY furosemide 20 mg tablet See Rx Instructions .ROUTE .COMPLEX PRN (Reason: Fluid) Rx Instructions: TAKE ONE TABLET BY MOUTH every other DAY ON tuesday, tuesday, AND tuesday ONLY PRN; lenalidomide 20 mg capsule 20 mg PO DAILY losartan 50 mg tablet 50 mg PO DAILY Qty: 90 1RF bisoprolol fumarate 5 MG tablet 5 mg PO DAILY aspirin 81 mg Tablet,Chewable 81 mg PO DAILY Clinical Impressions Clinical Impression: Metastatic disease, Multiple rib fractures, Pathologic compression fracture of lumbar vertebra, Pleural effusion, Fracture of scapula Discharge ED Provider: Leonard Roberts General Adult HPI General Chief complaint: Fall Stated complaint: WEAKNESS Time Seen by Provider: 05/03/24 10:42 History of Present Illness HPI narrative: Patient is a 73-year-old male with multiple comorbidities including [id number] diabetes, previous CABG, Parkinson's disease, peripheral vascular disease, diabetic neuropathy who presents emergency department for evaluation traumatic injury sustained in a fall. Patient has a walker at baseline and he fell onto his left upper extremity and skinned on the baseboard causing him to present here for continued evaluation. Patient has had falls before due to inability to feel his feet however none recently. This morning what is different is he is largely unable to ambulate on his own and when he attempted resulted in the fall. Denies head trauma or anticoagulants. No significant shortness of breath, has had a slight cough since yesterday, no chest pain. Tdap up-to-date. No other acute complaints at this time. Per chart review he follows with Dr. Rapp here with oncology and he has a history of multiple myeloma with IgG kappa specific protein last seen at the beginning of March which she was initiated on a new treatment a few weeks ago and he has follow-up this coming Tuesday. Related Data Home Medications Medication Instructions Recorded Confirmed atorvastatin 40 mg tablet 40 mg PO HS Cholesterol 12/20/17 04/17/24 tamsulosin 0.4 mg capsule 0.4 mg PO DAILY prostate 07/03/19 04/17/24 bisoprolol fumarate 5 mg tablet 5 mg PO DAILY bp 01/08/21 04/17/24 omeprazole 40 mg capsule,delayed 40 mg PO DAILY GERD 02/16/21 04/17/24 release prochlorperazine maleate 10 mg 10 mg PO Q6HP PRN Nausea 08/17/21 04/17/24 tablet levothyroxine 75 mcg tablet 75 mcg PO DAILY thyroid supplement 12/16/22 04/17/24 empagliflozin 10 mg tablet 10 mg PO DAILY Diabetes 01/21/23 04/17/24 (Jardiance) amitriptyline 25 mg tablet 100 mg PO HS 08/25/23 04/17/24 carbidopa 25 mg-levodopa 100 mg 1 tab PO DAILY tremors 08/25/23 04/17/24 tablet furosemide 20 mg tablet See Rx Instructions .Route 12/21/23 04/17/24 .COMPLEX PRN Fluid pregabalin 50 mg capsule 50 mg PO TID 01/10/24 04/17/24 aspirin 81 mg chewable tablet 81 mg PO DAILY 03/16/24 04/17/24 lenalidomide 20 mg capsule 20 mg PO DAILY 04/17/24 04/17/24 Previous Rx's Medication Instructions Recorded hydrochlorothiazide 12.5 mg tablet 12.5 mg PO DAILY CHF #90 tabs 03/20/24 losartan 50 mg tablet 50 mg PO DAILY #90 tabs 04/17/24 Allergies Allergy/AdvReac Type Severity Reaction Status Date / Time No Known Allergies Allergy Verified 04/17/24 09:23 [facility] Disclaimer: The information contained in this section may have been updated after the patient was seen, as this information can be updated by other users. Medical History Parkinson disease DM2 (diabetes mellitus, type 2) Chest pain CAD (coronary artery disease) Cardiomyopathy Bilateral leg pain PAD (peripheral artery disease) MIO (obstructive sleep apnea) Hyperlipidemia Hypertensive heart disease without heart failure Neuropathy Surgical History History of colonoscopy History of heart bypass surgery Family History Other No significant family history Social History Smoking Status: Unknown if ever smoked alcohol intake: never substance use type: denies use current occupational status: retired Travel in the last 8 weeks: Inside the [place] household members: spouse housing: house 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: Yes ROS Obtained: Yes Systems reviewed as appropriate & no additional complaints except as documented Physical Exam General General appearance: alert and in no apparent distress Head Head exam: atraumatic and normocephalic Eye Eye exam: Present PERRL ENT ENT exam: Present mucous membranes moist Neck Neck exam: Present normal inspection Chest Chest inspection: Present normal inspection and symmetric chest wall rise Respiratory Respiratory exam: Present normal lung sounds bilaterally; Absent respiratory distress Cardiovascular Cardiovascular exam: Present tachycardia, irregular rhythm and other (No pitting edema BLE) Abdominal Exam Abdominal exam: Present soft; Absent tenderness Extremities Exam Extremities exam: Present other (4 cm well-circumscribed denuded area of skin over the extensor surface distal to the elbow of the left upper extremity. No tenderness at the elbow joint with full range of motion, no tenderness of the forearm and wrist.) Neurological Exam Neurological exam: Present alert Psychiatric Psychiatric exam: Present normal affect Skin Skin exam: Present warm and dry Medical Decision Making Ruddy Inquiry Pt receiving controlled substance: No Vital Signs: 05/03/24 10:42 05/03/24 10:48 05/03/24 11:01 Temperature 99.0 F Temperature Source Oral Pulse Rate 121 H 127 H Pulse Rate [Radial] 97 H Respiratory Rate 20 17 Blood Pressure 126/79 128/78 Blood Pressure [Right Arm] 126/79 Blood Pressure Mean [Right Arm] 94 Blood Pressure Source [Right Arm] Automatic Cuff Blood Pressure Position [Right Arm] Sitting 02 Sat by Pulse Oximetry 87 L 90 L 93 L Oxygen Delivery Method Room Air Oxygen Flow Rate (LPM) 05/03/24 11:39 05/03/24 12:02 05/03/24 12:31 Temperature Temperature Source Pulse Rate 121 H 115 H Pulse Rate [Radial] Respiratory Rate 29 H 19 Blood Pressure 121/67 147/66 H 107/76 L Blood Pressure [Right Arm] Blood Pressure Mean [Right Arm] Blood Pressure Source [Right Arm] Blood Pressure Position [Right Arm] 02 Sat by Pulse Oximetry 92 L 94 L Oxygen Delivery Method Nasal Cannula Oxygen Flow Rate (LPM) 2 Lab Data Lab Results 05/03/24 10:52: WBC 2.6 L, RBC 4.14 L, Hgb 13.9 L, Hct 42.2, MCV 102.0 H, MCH 33.7 H, MCHC 33.1, RDW 17.5, Plt Count 101 L, MPV 8.0, Neut % (Auto) 73.7, Lymph % (Auto) 8.2 L, Kimble % (Auto) 16.4 H, Eos % (Auto) 0.6, Baso % (Auto) 1.1, Neut # (Auto) 1.9, Lymph # (Auto) 0.2 L, Kimble # (Auto) 0.4, Eos # (Auto) 0.0, Baso # (Auto) 0.0, Sodium 139, Potassium 4.1, Chloride 107, Carbon Dioxide 27, Anion Gap 9.1, BUN 18, Creatinine 1.30 H, Estimated Creat Clear 68, Estimated GFR 54 L , Est GFR ( Amer) 65, Glucose 174 H, Hemoglobin A1c 7.1 H, Calcium 9.1, Magnesium 1.6, Total Bilirubin 1.4 H, AST 31, ALT 53, Alkaline Phosphatase 126, Troponin I 0.02, NT-Pro-B Natriuret Pep 3100 H, Total Protein 8.0, Albumin 4.0, Globulin 4.0 H, Albumin/Globulin Ratio 1.0 L 05/03/24 10:56: VBG pH 7.45 H, VBG pCO2 35.7, VBG pO2 48.8 H, VBG HCO3 24.1, VBG Total CO2 25.2, VBG O2 Saturation 85.0 H, VBG Base Excess 0.1, VBG Lactic Acid 2.0 05/03/24 12:00: Urine Color Yellow, Urine Appearance Clear, Urine pH 7.0, Ur Specific Nelson 1.010, Urine Protein Trace, Urine Glucose (UA) 3+, Urine Ketones Trace, Urine Blood Trace-i, Urine Nitrate Negative, Urine Bilirubin Negative, Urine Urobilinogen 1.0, Ur Leukocyte Esterase Negative, Urine RBC Occasional, Urine WBC None, Ur Squamous Epith Cells None, Urine Bacteria None 05/03/24 10:52 05/03/24 10:52 Orders (Tests/Meds): ED MEDICATIONS Generic Name Dose Route Start Last Admin Trade Name Barry PRN Reason Stop Dose Admin Piperacillin Sod/Tazobactam 100 mls @ 200 mls/hr 05/03/24 12:00 05/03/24 12:12 Sod 4.5 gm/ Sodium Chloride IV 05/13/24 11:59 200 mls/hr Q6H ANNEL Administration Vancomycin/PEG/NADA/Lysine/Water 1.5 gm in 300 mls @ 150 mls/hr 05/03/24 12:30 Vancomycin 1.5gm/300ml (Peg) Premix IV 05/13/24 12:29 Q18H ANNEL Miscellaneous 1 each 05/03/24 12:00 05/03/24 12:13 Vancomycin Consult Request NOTAPPLIC 06/02/24 11:59 1 each CONSULT PHARMACY ANNEL Administration Discontinued Medications Generic Name Dose Route Start Last Admin Trade Name Barry PRN Reason Stop Dose Admin Aspirin 324 mg 05/03/24 10:54 05/03/24 10:57 Aspirin 81mg Chewable Tablet PO 05/03/24 10:55 324 mg ONCE ONE Administration Dexamethasone Sodium Phosphate 10 mg 05/03/24 12:35 Dexamethasone 4mg/Ml 1ml Vial IV 05/03/24 12:36 ONCE ONE Lactated Ringer's 1,000 mls @ 999 mls/hr 05/03/24 10:59 05/03/24 11:15 Lactated Ringer's 1000 Ml Bag IV 05/03/24 11:59 999 mls/hr .Q1H1M ONE Administration Piperacillin Sod/Tazobactam 50 mls @ 100 mls/hr 05/03/24 12:00 Sod 3.375 gm/ Sodium Chloride IV 05/13/24 11:59 Q6H ANNEL Iopamidol 100 ml 05/03/24 11:39 05/03/24 11:40 Iopamidol-370 (76%);100ml Bottle IV 05/03/24 11:40 100 ml ONCE ONE Administration Sodium Chloride 50 ml 05/03/24 11:39 05/03/24 11:40 0.9 % Sodium Chloride 50 Ml Vial IV 05/03/24 11:40 50 ml ONCE ONE Administration Sodium Chloride 10 ml 05/03/24 11:39 05/03/24 11:40 Sodium Chloride 0.9% 10ml Syr (Rad Only) IV 06/02/24 11:38 10 ml NEEDED PRN Administration Maintain IV Site ORDERS Category Date Time Status CT angio chest - dissection Stat Cat Scan 05/03/24 10:[address] bony pelvis Stat Cat Scan 05/03/24 11:[address] lumbar spine wo con Stat Cat Scan 05/03/24 11:49 Taken POCUS Point of Care (ER Only) Stat Exams 05/03/24 10:54 Completed BNP [NT Pro Brain Natriuretic Pep.] Stat Lab 05/03/24 10:52 Completed CBC w/Auto Diff [Complete Blood Count Auto Diff] Stat Lab 05/03/24 10:52 Completed CMP [Comprehensive Metabolic Panel] Stat Lab 05/03/24 10:52 Completed Hemoglobin A1C Stat Lab 05/03/24 10:52 Completed MG [Magnesium] Stat Lab 05/03/24 10:52 Completed Trop I [Troponin I] Stat Lab 05/03/24 10:52 Completed Troponin I Q3H Lab 05/03/24 14:15 Ordered Troponin I Q3H Lab 05/03/24 17:15 Ordered UA [Urinalysis and Microscopic] Stat Lab 05/03/24 12:00 Completed Blood Culture Stat Micro 05/03/24 11:46 Received VBG [Venous Blood Gas] Stat RT 05/03/24 10:56 Completed ECG Data Tracing #1: Independently interpreted by me, rate is 121, rhythm is irregular, wide QRS with a right bundle branch block intermittently paced with intermittent PVCs. QTc 441. No significant ST elevation in anatomical contiguous leads is concordant, no excessive discordance HEART Score History (anamnesis): Slightly suspicious ECG: Non-specific disturbance Age: >65 years Risk factors: Atherosclerosis history Medical Decision Narrative: In summary patient is a 73-year-old male with past medical history described above who presents emergency department for evaluation of traumatic injury sustained in a fall. Patient is hemodynamically stable nontoxic-appearing upon arrival, tachycardic and hypoxic requiring 2 L nasal cannula for saturations greater than 90%. Patient has had a cough over the last 24 hours. From a trauma standpoint I am unconcerned, he has an abrasion over his left forearm that is nontender that will be dressed at bedside with bacitracin. Tdap is up-to-date. I suspect that he fell secondary to his chronic diabetic neuropathy with his altered sensorium that is dependent on his walker. He is not having chest pain currently differential for shortness of breath and tachycardia includes pneumonia, pulmonary embolism, aortic dissection, silent ACS, among others. Workup will be conducted with hematologic labs, chest x-ray, EKG, troponins, VBG, CTA chest. Initial inventions include aspirin, crystalloid bolus. Sepsis bolus fluids will be deferred initially given patient's history of cardiomyopathy although he does have normal biventricular function per cardiology note from February of this year. CTA chest informally visualized by me, bilateral pleural effusions. Repeat evaluation patient does have volume responsive tachycardia heart rate is now approximately 110. Hematologic labs reviewed by me, patient does have elevated BNP however it may be that he has heart failure and was intravascularly deplete. Remainder of hematologic labs are nonactionable. Formal read CTA chest shows multiple lytic foci of the glenoid, right anterior aspect of L1, multiple acute/subacute left rib fractures including ribs 3, 5, 6 on the left. Right healing eighth, ninth, 10th rib fractures. There is a comminuted fracture of the left scapula. Reviewing his chart he has metastatic involving the lumbar spine, given lower extremity weakness spinal cord compression is on the differential CT lumbar spine was obtained prior to formal read from CTA chest. Informally visualized by me, there is significant involvement of L3 without obvious retropulsion. Postvoid residual 230. Dexamethasone will be administered. Strength 3 out of 5 bilateral lower extremities originally, repeat evaluation 12:30 PM 4 out of 5 bilateral lower extremities. Patient will likely require full trauma imaging however in an effort to expedite care and will not change disposition in this hospital system with concern for spinal cord compression case was immediately discussed with [facility] Dr. Buchanan who graciously accepted patient for transfer for continued evaluation at this time. [id number] ultrasound Indication: Shortness of breath Identified cardiac views: Incomplete apical four-chamber Findings: Cardiac activity present, gross wall motion normal, ejection fraction slightly decreased, no large pericardial effusion Impression: -From above Images were saved to permanent archive The study was technically adequate CPT: 78159 This study was performed by me, and I personally interpreted all images/videos. Based on my clinical judgement, these images were adequate and did not necessitate further imaging. Critical Care Critical Care Time Critical Care Time: Yes Attestation: On 05/03/24, the high probability of a clinically significant, sudden or life threatening deterioration of the following system(s) required my full and direct attention, intervention and personal management. The time I documented below is in addition to time spent performing reported procedures but includes the following listed in this critical care notation. Total Time Total Critical Care Time: 45
--- NOTE | 2024-05-03 10:54 | CT_ITS ---
PROCEDURE INFORMATION: Exam: CTA Chest With Contrast Exam date and time: 05/03/2024 11:23 AM Age: 73 years old Clinical indication: Dyspnea; Additional info: SOB, tachy TECHNIQUE: Imaging protocol: Computed tomographic angiography of the chest with contrast. Exam focused on the arteries. 3D rendering (Not supervised by radiologist): MIP and/or 3D reconstructed images were created by the technologist. Radiation optimization: All CT scans at this facility use at least one of these dose optimization techniques: automated exposure control; mA and/or kV adjustment per patient size (includes targeted exams where dose is matched to clinical indication); or iterative reconstruction. Contrast material: ISOVUE 370; Contrast volume: 100 ml; Contrast route: INTRAVENOUS (IV); COMPARISON: CR XR RIBS LT MIN 3V W CXR1V 03/22/2024 9:45 AM FINDINGS: Tubes, catheters and devices: Pacemaker device Pulmonary arteries: There is suboptimal opacification of pulmonary arteries due to contrast bolus timing. Aorta: Unremarkable. No aortic aneurysm. No aortic dissection. Lungs: Bibasilar atelectasis versus parenchymal scarring. Bilateral ground-glass regions of opacification. Findings nonspecific however most likely reflect interstitial lung disease. An acute inflammatory process could not be entirely excluded. Pleural spaces: Moderate bilateral pleural effusions. Heart: Unremarkable. No cardiomegaly. No pericardial effusion. 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 Lymph nodes: Unremarkable. No enlarged lymph nodes. Bones/joints: Sternotomy and CABG. Comminuted fracture left scapula. Lytic lesion involving the left bony glenoid. Findings new since 10/21/2017. A metastatic focus should be considered. Multiple acute to subacute left rib fractures is involving the left 3rd 5th 6th ribs. Healing fractures involving the right posterolateral 8, 9th and 10th ribs. Thoracic spondylosis with multilevel disc degeneration. Lytic focus right anterolateral aspect L1. Findings new. Soft tissues: Unremarkable. IMPRESSION: 1. Moderate bilateral pleural effusions. 2. Multiple lytic foci involving the left bony glenoid, right anterolateral aspect L1. Multiple acute to subacute nonsegmental left rib fractures as described above. Bone metastasis could not be excluded. Follow-up with PET-CT imaging. 3. Bilateral ground-glass regions of opacification. Findings nonspecific however most likely reflect interstitial lung disease. An acute inflammatory process could not be entirely excluded. 4. No large or central pulmonary embolus. Evaluation of the peripheral pulmonary arteries is limited. 5. Comminuted fracture left scapula.
--- NOTE | 2024-05-03 10:55 | ECG_ITS ---
APPROVED REPORT Exam: Resting ECG HR:121 bpm ECG Measurements Heart Rate 121 AXES QRSd 146 QRS 231 QT 369 T 32 QTc 441 Conclusion Wide QRS, intermittently ventricularly paced, no excessive discordance or concordant ST changes, intermittent PVCs Electronically signed by : MIRZA GUERRERO, 05/03/2024 15:22:12
[2024-05-03] MEDS: ASPIRIN 81MG CHEWABLE TABLET 324 MG PO (10:57)
[2024-05-03 11:00] LABS: Basophils % 1.1 % (0.1-2.0); Eosinophils % 0.6 % (0.1-12.0); Hematocrit 42.2 % (42.0-52.0); Hemoglobin 13.9 g/dL (14.1-18.0); Lymphocytes # 0.2 K/mm3 (0.7-4.5); Lymphocytes % 8.2 % (10-50); Mean Corpuscular HGB Conc 33.1 g/dL (31.8-35.4); Mean Corpuscular Hemoglobin 33.7 pg (27.0-31.2); Monocytes # 0.4 K/mm3 (0.1-1.0); Monocytes % 16.4 % (1.7-9.3); Neutrophils # 1.9 K/mm3 (1.8-7.8); Neutrophils % 73.7 % (37.0-80.0); Platelet Count 101 K/mm3 (142-424); Red Blood Count 4.14 M/mm3 (4.60-6.20); Red Cell Distribution Width 17.5 % (11.5-17.5); White Blood Count 2.6 K/mm3 (4.8-10.8)
[2024-05-03 11:04] LABS: Chloride 107 mmol/L (98-107)
[2024-05-03 11:05] LABS: Potassium 4.1 mmoL/L (3.5-5.1); Sodium 139 mmol/L (136-145)
[2024-05-03 11:07] LABS: VBG Base Excess 0.1 mmol/L (-2.4-2.3); VBG HCO3 24.1 mmol/L (23-30); VBG PCO2 35.7 mmol/L (35-51); VBG PH 7.45 mmol/L (7.31-7.41); VBG PO2 48.8 mmol/L (28-40); VBG Total CO2 25.2 mmol/L (23-27)
[2024-05-03 11:07] LABS: Alanine Aminotransferase 53 U/L (12-78); Alkaline Phosphatase 126 U/L (38-126); Anion Gap 9.1 mEq/L (5-15); Aspartate Amino Transferase 31 U/L (17-59); Bilirubin,Total 1.4 mg/dl (0.2-1.3); Blood Urea Nitrogen 18 mg/dl (9-20); Carbon Dioxide 27 mmol/L (22.0-30.0); Creatinine Clearance Estimated 68 mL/min (50-200); Estimated Glomerular Filt Rate 54 ml/min (>60); GFR (African American) 65 ML/MIN (>60)
[2024-05-03 11:08] LABS: Calcium 9.1 mg/dl (8.4-10.2); Glucose 174 mg/dl (74-100); Magnesium 1.6 mg/dl (1.6-2.3)
[2024-05-03] MEDS: LACTATED RINGERS 1000ML 1,000 ML 999 ML IV (11:15)
[2024-05-03 11:16] LABS: NT Pro Brain Natriuretic Pep. 3100 pg/mL (0-125)
--- NOTE | 2024-05-03 11:27 | PC.NURSE ---
pt to ct
[2024-05-03 11:36] LABS: Troponin I 0.02 ng/ml (0.00-0.034)
[2024-05-03] MEDS: SODIUM CHLORIDE 0.9% 10ML SYR (RAD ONLY) 10 ML IV (11:40)
[2024-05-03] MEDS: IOPAMIDOL-370 (76%);100ML BOTTLE 100 ML IV (11:40)
[2024-05-03] MEDS: 0.9 % SODIUM CHLORIDE 50 ML VIAL IV (11:40)
--- NOTE | 2024-05-03 11:40 | PC.NURSE ---
pt returned from ct
--- NOTE | 2024-05-03 11:43 | PC.NURSE ---
Dr. Roberts ordering blood cultures at this time, in process of collecting
--- NOTE | 2024-05-03 11:49 | CT_ITS ---
PROCEDURE INFORMATION: Exam: CT Pelvis Without Contrast; Skeletal Exam date and time: 05/03/2024 12:15 PM Age: 73 years old Clinical indication: Difficulty in walking and other: Weakness; Additional info: Myeloma le weakness TECHNIQUE: Imaging protocol: Computed tomography of the pelvis without contrast. Exam focused on the skeleton. Radiation optimization: All CT scans at this facility use at least one of these dose optimization techniques: automated exposure control; mA and/or kV adjustment per patient size (includes targeted exams where dose is matched to clinical indication); or iterative reconstruction. COMPARISON: CR HIPCMLT XR hip LT 2-3V w/pelvis 01/11/2018 1:20 PM FINDINGS: Intestine: Colonic diverticulosis. No evidence of diverticulitis. Vasculature: Scattered regions of atherosclerotic vascular calcification within the abdominal aorta and common iliac arteries. Bones/joints: Multiple lytic foci scattered throughout the bony pelvis. 3.8 x 2 cm lytic focus right pubic symphysis. Soft tissues: Unremarkable. IMPRESSION: 1. Multiple lytic foci scattered throughout the bony pelvis. 3.8 x 2 cm lytic focus right pubic symphysis. 2. Moderate L3 compression fracture deformity. A pathologic fracture could not be excluded.
--- NOTE | 2024-05-03 11:49 | CT_ITS ---
PROCEDURE INFORMATION: Exam: CT Lumbar Spine Without Contrast Exam date and time: 05/03/2024 12:12 PM Age: 73 years old Clinical indication: Weakness; Additional info: Myleome/le weak TECHNIQUE: Imaging protocol: Computed tomography of the lumbar spine without contrast. Radiation optimization: All CT scans at this facility use at least one of these dose optimization techniques: automated exposure control; mA and/or kV adjustment per patient size (includes targeted exams where dose is matched to clinical indication); or iterative reconstruction. COMPARISON: None FINDINGS: Bones/joints: Generalized osteopenia. Multiple subtle lytic foci demonstrated throughout the lumbar spine most pronounced at L1 and L3. L3 compression fracture deformity with approximate 50% decrease in vertebral body height. No evidence of retropulsion. Lytic foci also demonstrated within the iliac bones bilaterally as well as involving S1. Soft tissues: Moderate spinal stenosis L4-L5 secondary to combined disc protrusion ligamentum flavum and advanced facet hypertrophy. Findings not optimally visualized. Moderate-moderately severe left greater than right neural foraminal stenosis. IMPRESSION: 1. Multiple subtle lytic foci demonstrated throughout the lumbar spine most pronounced at L1 and L3. 2. L3 compression fracture deformity with approximate 50% decrease in vertebral body height. 3. Moderate spinal stenosis L4-L5 as described above.
[2024-05-03 11:54] LABS: Hemoglobin A1C 7.1 % (4.0-6.0)
--- NOTE | 2024-05-03 11:56 | P.CONPHA_ITS ---
Pharmacy Consult Date: 05/03/24 Time: 11:56 Referring provider: DR. GUERRERO Reason for Consult:: VANCOMYCIN DOSING Allergies Allergy/AdvReac Type Severity Reaction Status Date / Time No Known Allergies Allergy Verified 04/17/24 09:23 Home Medications Medication Instructions Recorded Confirmed Type atorvastatin 40 mg tablet 40 mg PO HS Cholesterol 12/20/17 04/17/24 History tamsulosin 0.4 mg capsule 0.4 mg PO DAILY prostate 07/03/19 04/17/24 History bisoprolol fumarate 5 mg tablet 5 mg PO DAILY bp 01/08/21 04/17/24 History omeprazole 40 mg capsule,delayed 40 mg PO DAILY GERD 02/16/21 04/17/24 History release prochlorperazine maleate 10 mg 10 mg PO Q6HP PRN Nausea 08/17/21 04/17/24 History tablet levothyroxine 75 mcg tablet 75 mcg PO DAILY thyroid supplement 12/16/22 04/17/24 History empagliflozin 10 mg tablet 10 mg PO DAILY Diabetes 01/21/23 04/17/24 History (Jardiance) amitriptyline 25 mg tablet 100 mg PO HS 08/25/23 04/17/24 History carbidopa 25 mg-levodopa 100 mg 1 tab PO DAILY tremors 08/25/23 04/17/24 History tablet furosemide 20 mg tablet See Rx Instructions .Route 12/21/23 04/17/24 History .COMPLEX PRN Fluid pregabalin 50 mg capsule 50 mg PO TID 01/10/24 04/17/24 History aspirin 81 mg chewable tablet 81 mg PO DAILY 03/16/24 04/17/24 History hydrochlorothiazide 12.5 mg tablet 12.5 mg PO DAILY CHF #90 tabs 03/20/24 04/17/24 Rx lenalidomide 20 mg capsule 20 mg PO DAILY 04/17/24 04/17/24 History losartan 50 mg tablet 50 mg PO DAILY #90 tabs 04/17/24 Rx New Prescriptions to Start Prescriptions: Height: 1.83 m Weight: 95.254 kg Laboratory Results:: Laboratory Results - last 24 hr 05/03/24 10:52: WBC 2.6 L, RBC 4.14 L, Hgb 13.9 L, Hct 42.2, MCV 102.0 H, MCH 33.7 H, MCHC 33.1, RDW 17.5, Plt Count 101 L, MPV 8.0, Neut % (Auto) 73.7, Lymph % (Auto) 8.2 L, [place] % (Auto) 16.4 H, Eos % (Auto) 0.6, Baso % (Auto) 1.1, Neut # (Auto) 1.9, Lymph # (Auto) 0.2 L, [place] # (Auto) 0.4, Eos # (Auto) 0.0, Baso # (Auto) 0.0, Sodium 139, Potassium 4.1, Chloride 107, Carbon Dioxide 27, Anion Gap 9.1, BUN 18, Creatinine 1.30 H, Estimated Creat Clear 68, Estimated GFR 54 L , Est GFR ( Amer) 65, Glucose 174 H, Hemoglobin A1c 7.1 H, Calcium 9.1, Magnesium 1.6, Total Bilirubin 1.4 H, AST 31, ALT 53, Alkaline Phosphatase 126, Troponin I 0.02, NT-Pro-B Natriuret Pep 3100 H, Total Protein 8.0, Albumin 4.0, Globulin 4.0 H, Albumin/Globulin Ratio 1.0 L 05/03/24 10:56: VBG pH 7.45 H, VBG pCO2 35.7, VBG pO2 48.8 H, VBG HCO3 24.1, VBG Total CO2 25.2, VBG O2 Saturation 85.0 H, VBG Base Excess 0.1, VBG Lactic Acid 2.0 Medical History: Medical History (Updated 04/18/24 @ 08:35 by Margo Decker APRN) Parkinson disease DM2 (diabetes mellitus, type 2) Chest pain CAD (coronary artery disease) Cardiomyopathy Bilateral leg pain PAD (peripheral artery disease) MIO (obstructive sleep apnea) Hyperlipidemia Hypertensive heart disease without heart failure Neuropathy Assessment and Plan Assessment and plan all Dx Assessment and Plan for all problems:: Pharmacokinetic dosing service Objective: Patient: Floor: Age: 73 yo Serum creatinine: 1.30 mg/dL Height: 72.0 Inches Weight (kg): 95.3 Assessment: IBW (kg): 77.60 Dosing wt(kg): 95.3 Estimated Creatinine clearance (ml/min): 55.5 CRCL method: Cockcroft and Gault using ibw(default). Drug selected: Vancomycin Loading dose (mg): Vd (liters): 76.2 (factor used: 0.8 L/kg) Franki (hr-1): 0.050 Half life (hrs): 13.86 CLvanco=?? 3.810 L/hr Recommended dose: 1500 mg Interval: 18 hrs Infusion time (hrs): 2.0 Predicted peak (mcg/mL): 31.6 Predicted trough (mcg/mL): 14.20 Total body weight is being used for vancomycin dosing. Recommendations: Give Vancomycin 1500 mg q 18 hrs with an expected Cpeak of 31.6 mcg/ml and an expected Ctrough of 14.20 mcg/ml AUC 0-24 /BASSAM Data: BASSAM 0.5 mcg/mL:?? AUC/BASSAM:? 1049.9 BASSAM 1.0 mcg/mL:?? AUC/BASSAM:? 524.9 --------- BASSAM 1.5 mcg/mL:?? AUC/BASSAM:? 350.0 BASSAM 2.0 mcg/mL:?? AUC/BASSAM:? 262.5 Thank you for the consult, will continue to follow. -DOMENIC LI, ORIOND
[2024-05-03 12:03] LABS: Microscopic, Urine URINE MICROSCOPIC (MICROSCOPIC)
--- NOTE | 2024-05-03 12:03 | PC.NURSE ---
PT VOIDED 350ML. POST VOID RESIDUAL IS 234ML
[2024-05-03] MEDS: PIPERACILLIN/TAZO 4.5 GM in 0.9 % SODIUM CHLORIDE 100 ML IV (12:12)
[2024-05-03 12:13] LABS: Appearance,Urine CLEAR (Clear); Bilirubin,Urine Negative (Negative); Blood, Urine TRACE-I (Negative); Color,Urine YELLOW (Yellow); Glucose,Urine (UA) 3+ (Negative); Ketones,Urine TRACE (Negative); Leukocyte Esterase,Urine Negative (Negative); Nitrate,Urine Negative (Negative); Protein,Urine TRACE (Negative)
[2024-05-03] MEDS: VANCOMYCIN CONSULT REQUEST 1 EACH NOTAPPLIC (12:13)
[2024-05-03 12:25] LABS: RBC,Urine Occasional #/hpf (0-3)
--- NOTE | 2024-05-03 12:28 | PC.NURSE ---
Dr. Roberts at the bedside
--- NOTE | 2024-05-03 12:29 | PC.NURSE ---
Calling [facility] for possible transfer
--- NOTE | 2024-05-03 12:33 | PC.NURSE ---
called [facility] for transfer
--- NOTE | 2024-05-03 12:41 | PC.NURSE ---
o/p with at this time.
--- NOTE | 2024-05-03 13:07 | PC.NURSE ---
Report called to FAZAL Hector with [facility]
[2024-05-03] MEDS: DEXAMETHASONE 4MG/ML 1ML VIAL 10 MG IV (13:08)
[2024-05-03] MEDS: VANCOMYCIN/WATER FOR INJ (PEG) 1.5 GM/300 ML PIGGYBACK IV (13:10)
== END 2024-05-03 13:55 | disposition short-term general hospital (02) ==
PROVIDERS: Emergency Provider Emergency Medicine; PCP Family Medicine
DX: R09.02 Hypoxemia; S22.42XA Multiple fractures of ribs, left side, initial encounter for closed fracture; S42.102A Fracture of unspecified part of scapula, left shoulder, initial encounter for closed fracture; J90 Pleural effusion, not elsewhere classified; C79.9 Secondary malignant neoplasm of unspecified site; I49.3 Ventricular premature depolarization; I45.10 Unspecified right bundle-branch block; G20.C Parkinsonism, unspecified; E11.40 Type 2 diabetes mellitus with diabetic neuropathy, unspecified; I73.9 Peripheral vascular disease, unspecified; E78.5 Hyperlipidemia, unspecified; I11.9 Hypertensive heart disease without heart failure; I25.10 Atherosclerotic heart disease of native coronary artery without angina pectoris; Z95.1 Presence of aortocoronary bypass graft; Z79.84 Long term (current) use of oral hypoglycemic drugs; W18.30XA Fall on same level, unspecified, initial encounter
CPT/HCPCS: 71275; 72131; 72192; 80053; 81001; 82803; 83036; 83735; 83880; 84484; 85025; 87040; 93005; 96361; 96365; 96366; 96375; 99291; J1100; J2543; J7120; Q9967

== ENCOUNTER 2024-05-08 08:08 | Outpatient (CLI) | payer MEDICARE, BC, SELFPAY ==
[2024-05-08 08:16] VITALS: BMI 29.0
[2024-05-08 08:40] LABS: Chloride 105 mmol/L (98-107); Potassium 3.9 mmoL/L (3.5-5.1); Sodium 138 mmol/L (136-145)
[2024-05-08 08:42] LABS: Alanine Aminotransferase 15 U/L (12-78); Aspartate Amino Transferase 31 U/L (17-59); Blood Urea Nitrogen 20 mg/dl (9-20); Creatinine Clearance Estimated 69 mL/min (50-200); Estimated Glomerular Filt Rate 54 ml/min (>60); GFR (African American) 65 ML/MIN (>60)
[2024-05-08 08:43] LABS: Albumin Level 3.8 g/dl (3.5-5.0); Alkaline Phosphatase 100 U/L (38-126); Anion Gap 8.9 mEq/L (5-15); Calcium 8.6 mg/dl (8.4-10.2); Carbon Dioxide 28 mmol/L (22.0-30.0); Globulin 3.8 g/dL (1.3-3.2); Glucose 139 mg/dl (74-100); Total Protein,Serum 7.6 g/dl (6.3-8.2)
[2024-05-08 08:45] LABS: Basophils # 0.1 K/mm3 (0-0.2); Basophils % 1.4 % (0.1-2.0); Hematocrit 42.7 % (42.0-52.0); Hemoglobin 13.8 g/dL (14.1-18.0); Lymphocytes # 0.9 K/mm3 (0.7-4.5); Mean Corpuscular HGB Conc 32.3 g/dL (31.8-35.4); Mean Corpuscular Hemoglobin 32.8 pg (27.0-31.2); Mean Corpuscular Volume 101.3 fl (80-94); Mean Platelet Volume 7.5 fl (7.4-10.4); Monocytes # 0.3 K/mm3 (0.1-1.0); Neutrophils # 2.6 K/mm3 (1.8-7.8); Neutrophils % 66.6 % (37.0-80.0); Platelet Count 157 K/mm3 (142-424); Red Blood Count 4.21 M/mm3 (4.60-6.20); Red Cell Distribution Width 17.3 % (11.5-17.5); White Blood Count 3.9 K/mm3 (4.8-10.8)
[2024-05-08] MEDS: PROCHLORPERAZINE 10MG TABLET 10 MG PO (09:11)
[2024-05-08] MEDS: BORTEZOMIB 3.5MG VIAL 2.9 MG SQ (09:31)
[2024-05-08 09:40] VITALS: BP 103/74; PULSE 87; RESP 18; TEMP 36.6; O2SAT 97
== END 2024-05-08 09:45 | disposition home or self-care (01) ==
LOC: INF 08:09
PROVIDERS: PCP Family Medicine; Visit Provider Internal Medicine Medical Oncology
DX: C90.00 Multiple myeloma not having achieved remission (principal); D47.2 Monoclonal gammopathy
CPT/HCPCS: 80053; 85025; 96401; J9041; Q0164

== ENCOUNTER 2024-05-15 08:03 | Outpatient (CLI) | payer MEDICARE, BC, SELFPAY ==
[2024-05-15] MEDS: PROCHLORPERAZINE 10MG TABLET 10 MG PO (08:15)
[2024-05-15] MEDS: DENOSUMAB 120MG/1.7ML VIAL 120 MG SQ (08:42)
[2024-05-15] MEDS: BORTEZOMIB 3.5MG VIAL 2.9 MG SQ (08:43)
[2024-05-15 08:45] VITALS: BP 101/64; PULSE 68; RESP 18; TEMP 36.8; O2SAT 98
[2024-05-15 08:55] VITALS: BP 104/62; PULSE 71
== END 2024-05-15 08:55 | disposition home or self-care (01) ==
LOC: INF 08:04
PROVIDERS: PCP Family Medicine; Visit Provider Internal Medicine Medical Oncology
DX: C90.00 Multiple myeloma not having achieved remission (principal); D47.2 Monoclonal gammopathy
CPT/HCPCS: 96372; 96401; J0897; J9041; Q0164

== ENCOUNTER 2024-05-22 08:09 | Outpatient (CLI) | payer MEDICARE, BC, SELFPAY ==
[2024-05-22] MEDS: PROCHLORPERAZINE 10MG TABLET 10 MG PO (08:18)
[2024-05-22] MEDS: BORTEZOMIB 3.5MG VIAL 2.9 MG SQ (08:43)
[2024-05-22 08:50] VITALS: BP 107/57; PULSE 91; RESP 18; TEMP 36.3; O2SAT 97
== END 2024-05-22 08:50 | disposition home or self-care (01) ==
LOC: INF 08:11
PROVIDERS: PCP Family Medicine; Visit Provider Internal Medicine Medical Oncology
DX: C90.00 Multiple myeloma not having achieved remission (principal); D47.2 Monoclonal gammopathy
CPT/HCPCS: 96401; J9041; Q0164

== ENCOUNTER 2024-05-29 08:15 | Outpatient (CLI) | payer MEDICARE, BC, SELFPAY ==
[2024-05-29 08:22] VITALS: BMI 29.0
[2024-05-29 08:41] LABS: Basophils % 1.2 % (0.1-2.0); Eosinophils # 0.1 K/mm3 (0.0-0.4); Eosinophils % 3.7 % (0.1-12.0); Hematocrit 42.6 % (42.0-52.0); Hemoglobin 14.4 g/dL (14.1-18.0); Lymphocytes # 0.7 K/mm3 (0.7-4.5); Mean Corpuscular HGB Conc 33.8 g/dL (31.8-35.4); Mean Corpuscular Hemoglobin 34.2 pg (27.0-31.2); Mean Corpuscular Volume 101.1 fl (80-94); Mean Platelet Volume 8.7 fl (7.4-10.4); Monocytes # 0.4 K/mm3 (0.1-1.0); Monocytes % 12.2 % (1.7-9.3); Neutrophils # 2.2 K/mm3 (1.8-7.8); Neutrophils % 62.9 % (37.0-80.0); Platelet Count 92 K/mm3 (142-424); Red Blood Count 4.22 M/mm3 (4.60-6.20); Red Cell Distribution Width 17.4 % (11.5-17.5); White Blood Count 3.5 K/mm3 (4.8-10.8)
[2024-05-29 08:44] LABS: Alanine Aminotransferase 10 U/L (12-78); Albumin Level 4.1 g/dl (3.5-5.0); Albumin/Globulin Ratio 1.2 (1.1-1.8); Alkaline Phosphatase 90 U/L (38-126); Aspartate Amino Transferase 24 U/L (17-59); Blood Urea Nitrogen 22 mg/dl (9-20); Calcium 9.1 mg/dl (8.4-10.2); Carbon Dioxide 33 mmol/L (22.0-30.0); Chloride 101 mmol/L (98-107); Creatinine Clearance Estimated 69 mL/min (50-200); Estimated Glomerular Filt Rate 54 ml/min (>60); GFR (African American) 65 ML/MIN (>60); Globulin 3.3 g/dL (1.3-3.2); Glucose 131 mg/dl (74-100); Sodium 139 mmol/L (136-145); Total Protein,Serum 7.4 g/dl (6.3-8.2)
[2024-05-29] MEDS: PROCHLORPERAZINE 10MG TABLET 10 MG PO (09:32)
[2024-05-29] MEDS: BORTEZOMIB 3.5MG VIAL 2.9 MG SQ (10:09)
[2024-05-29 10:12] VITALS: BP 103/67; PULSE 88; RESP 18; TEMP 36.7; O2SAT 98
[2024-05-30 14:15] LABS: Albumin 3.4 g/dL (2.9-4.4); Alpha-1-Globulin 0.2 g/dL (0.0-0.4); Alpha-2-Globulin 0.7 g/dL (0.4-1.0); Gamma Globulin 0.9 g/dL (0.4-1.8); Protein, Total 5.9 g/dL (6.0-8.5)
[2024-06-18 12:27] LABS: Immunoglobulin A, Qn 52; Immunoglobulin G, Qn 1012
[2024-06-18 12:28] LABS: Immunoglobulin M, Qn 25
[2024-06-18 12:30] LABS: Free Kappa Lt Chains 22.7
== END 2024-05-29 10:12 | disposition home or self-care (01) ==
LOC: INF 08:15
PROVIDERS: PCP Family Medicine; Visit Provider Internal Medicine Medical Oncology
DX: D46.9 Myelodysplastic syndrome, unspecified (principal)
CPT/HCPCS: 36415; 80053; 82784; 83883; 84155; 84165; 85025; 86334; 96401; J9041; Q0164

== ENCOUNTER 2024-06-04 08:08 | Day surgery (SDC) | payer MEDICARE, BC, SELFPAY ==
--- NOTE | 2024-05-31 13:08 | SUR.PREOP ---
called patient twice once this morning and once now to go over instructions for procedure on tuesday. pt stated he was busy and would call back later when he could hear.
--- NOTE | 2024-05-31 13:09 | SUR.PREOP ---
attempted to call patient's to go over instructions, no answer, left voicemail to call back
--- NOTE | 2024-05-31 13:56 | SUR.PREOP ---
called pt to go over instructions for procedure on tuesday.
[2024-06-04] VITALS (10 sets, daily range): BP systolic 97–140; BP diastolic 55–92; PULSE 67–95; RESP 15–18; TEMP 36.6; O2SAT 97–98; BMI 27.6
--- NOTE | 2024-06-04 07:16 | IR_ITS ---
APPROVED REPORT Patient Location: Outpatient PROCEDURES Pigtail catheter abdominal aorta Abdominal aortography Repositioning of the catheter in the abdominal aorta Bilateral iliofemoral runoff INDICATION Abnormal SARAY, [place] claudication class IV-V, Peripheral artery disease Informed consent was obtained prior to the procedure. COMPLICATIONS NONE Estimated Blood Loss: LESS THAN 10 ML TECHNIQUE 1% lidocaine used anesthetize right groin respiratory successfully is known to take make an affect which she is positioning noted from artery. Pigtail catheter was advanced to the abdominal aorta abdominal aortography was performed. The catheter was then repositioned followed by bilateral iliofemoral runoff. At the end the procedure the apparatus was removed and patient was transferred to the postop putting in stable condition for sheath removal ANGIOGRAPHIC RESULTS Distal abdominal aorta is widely patent Bilateral common internal and external iliac arteries are widely patent Bilateral common femoral profunda femoris and SFA arteries are widely patent Right popliteal artery has an eccentric calcified 40% stenosis while the left popliteal artery is widely patent Below the knee extremely slow flow is identified. There is no overt macrovascular lesion but rather small vessel diffuse vasculopathy in which virtually no opacification below the trifurcation is identified. 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 Xarelto 2.5 twice daily plus aspirin 81 mg daily 2. Physical therapy 3. At this point nothing can be performed from a percutaneous standpoint which would improve the microvascular circulation 4. LDL less than 55 to be achieved with high intensity statin Electronically signed by : Shawn Yates MD 06/04/2024 14:47:03
[2024-06-04 12:19] LABS: Chloride 99 mmol/L (98-107); Sodium 138 mmol/L (136-145)
[2024-06-04 12:20] LABS: Potassium 3.7 mmoL/L (3.5-5.1)
[2024-06-04 12:22] LABS: Blood Urea Nitrogen 27 mg/dl (9-20); Creatinine Clearance Estimated 72 mL/min (50-200); Estimated Glomerular Filt Rate 59 ml/min (>60); GFR (African American) 72 ML/MIN (>60)
[2024-06-04 12:23] LABS: Anion Gap 8.7 mEq/L (5-15); Calcium 8.5 mg/dl (8.4-10.2); Carbon Dioxide 34 mmol/L (22.0-30.0); Glucose 119 mg/dl (74-100)
[2024-06-04 13:15] LABS: Basophils # 0.1 K/mm3 (0-0.2); Basophils % 1.3 % (0.1-2.0); Eosinophils # 0.1 K/mm3 (0.0-0.4); Eosinophils % 1.7 % (0.1-12.0); Hemoglobin 14.9 g/dL (14.1-18.0); Lymphocytes # 1.1 K/mm3 (0.7-4.5); Mean Corpuscular HGB Conc 31.7 g/dL (31.8-35.4); Mean Corpuscular Hemoglobin 33.3 pg (27.0-31.2); Mean Corpuscular Volume 104.9 fl (80-94); Mean Platelet Volume 9.9 fl (7.4-10.4); Monocytes # 0.3 K/mm3 (0.1-1.0); Monocytes % 7.7 % (1.7-9.3); Neutrophils # 2.9 K/mm3 (1.8-7.8); Neutrophils % 65.4 % (37.0-80.0); Platelet Count 121 K/mm3 (142-424); Red Blood Count 4.48 M/mm3 (4.60-6.20); Red Cell Distribution Width 17.3 % (11.5-17.5); White Blood Count 4.4 K/mm3 (4.8-10.8)
[2024-06-04] MEDS: diphenhydrAMINE 50MG/ML VIAL 50 MG IV (13:18)
[2024-06-04] MEDS: LIDOCAINE 1% 10ML MDV 20 ML IJ (13:19)
[2024-06-04] MEDS: HEPARIN 1,000 UNITS/500ML NS (CATH LAB) 3000 UNIT IV (13:19)
[2024-06-04] MEDS: FENTANYL 100MCG/2ML VIAL 50 MCG IV (13:20)
[2024-06-04] MEDS: 0.9 % SODIUM CHLORIDE 500 ML 25 ML IV (13:20)
[2024-06-04] MEDS: MIDAZOLAM HCL 1MG/1ML 5ML VIAL 1 MG IV (13:20)
[2024-06-04] MEDS: IOPAMIDOL-250 (51%) 100ML BOT 133 ML IV (15:55)
== END 2024-06-04 16:32 | disposition home or self-care (01) ==
PROVIDERS: PCP Family Medicine; Visit Provider Internal Medicine
DX: Z95.810 Presence of automatic (implantable) cardiac defibrillator; C90.00 Multiple myeloma not having achieved remission; I11.9 Hypertensive heart disease without heart failure; I42.9 Cardiomyopathy, unspecified; I25.10 Atherosclerotic heart disease of native coronary artery without angina pectoris; Z95.1 Presence of aortocoronary bypass graft; Z79.899 Other long term (current) drug therapy; I47.20 Ventricular tachycardia, unspecified; G20.A1 Parkinson's disease without dyskinesia, without mention of fluctuations; I70.223 Atherosclerosis of native arteries of extremities with rest pain, bilateral legs
CPT/HCPCS: 36247; 75716; 80048; 85025; 99152; C1725; C1769; C1894; J1200; J1644; J2250; J3010; Q9966

== ENCOUNTER 2024-06-05 08:15 | Outpatient (CLI) | payer MEDICARE, BC, SELFPAY ==
[2024-06-05 08:21] VITALS: BMI 33.2
[2024-06-05 08:38] LABS: Basophils % 0.7 % (0.1-2.0); Eosinophils # 0.1 K/mm3 (0.0-0.4); Hematocrit 42.4 % (42.0-52.0); Hemoglobin 13.6 g/dL (14.1-18.0); Lymphocytes # 0.4 K/mm3 (0.7-4.5); Lymphocytes % 8.9 % (10-50); Mean Corpuscular HGB Conc 32.2 g/dL (31.8-35.4); Mean Corpuscular Hemoglobin 33.2 pg (27.0-31.2); Mean Corpuscular Volume 103.2 fl (80-94); Monocytes # 0.2 K/mm3 (0.1-1.0); Monocytes % 3.1 % (1.7-9.3); Neutrophils # 4.2 K/mm3 (1.8-7.8); Neutrophils % 86.4 % (37.0-80.0); Platelet Count 114 K/mm3 (142-424); Red Blood Count 4.11 M/mm3 (4.60-6.20); Red Cell Distribution Width 17.3 % (11.5-17.5); White Blood Count 4.9 K/mm3 (4.8-10.8)
[2024-06-05 08:45] LABS: MANUAL DIFFERENTIAL MANUAL DIFFERENTIAL (MANUAL DIFF)
[2024-06-05 08:50] VITALS: BP 97/61; PULSE 78; RESP 18; TEMP 36.4; O2SAT 98
[2024-06-05] MEDS: PROCHLORPERAZINE 10MG TABLET 10 MG PO (08:50)
[2024-06-05 09:11] VITALS: BP 100/62; PULSE 76; RESP 18; O2SAT 98
[2024-06-05] MEDS: BORTEZOMIB 3.5MG VIAL 2.9 MG SQ (09:11)
[2024-06-05 09:20] LABS: Lymphocytes % 11 % (10-50); Macrocytosis 1+; Monocytes % 2 % (2-9); Neutrophils % 87 % (42-76); Platelet Estimate Slight Decrease; Total Cells Counted 100
== END 2024-06-05 09:30 | disposition home or self-care (01) ==
LOC: INF 08:15
PROVIDERS: PCP Family Medicine; Visit Provider Internal Medicine Medical Oncology
DX: C79.9 Secondary malignant neoplasm of unspecified site (principal)
CPT/HCPCS: 85007; 85025; 85027; 96401; J9041; Q0164

== ENCOUNTER 2024-06-15 11:00 | Outpatient (RCR) | payer MEDICARE, BC, SELFPAY ==
--- NOTE | 2024-04-11 09:13 | HMH.PTOPEV ---
PT Outpatient Evaluation Rehab PT Outpatient Evaluation Start: 03/11/24 19:43 Freq: Status: Active Protocol: Document 03/09/24 10:00 JAMIA (Rec: 03/11/24 20:04 JAMIA [id number]) E-signed By Christian Anthony, PT Outpatient Therapy Subjective History Subjective History Deja is a 73 year old male presenting to outpatient PT with reports of B foot ankle pain, poor balance and decreased endurance with standing/ambulatory activities . Patient reports 3 falls over the past 6 months secondary to weakness/tripping . Patient was diagnosed with multiple myeloma approx 3 years ago. Since then symptoms have progressively gotten worse with treatment. Other comorbidities include hx of Parkinsons, HNT, HL and diabetes. New diagnosis of cancer in past 12 No: current multiple myeloma months? per report Chief Complaint Pain,Spasms,Stiff,Paresthesia, Weakness Symptom Type Ache,Numbness,Tingling Symptoms Relieved By Rest/Positioning Symptoms Aggravated By Standing,Physical Activity, Walking Prior Functional Limitations Standing,Walking,Balance Current Functional Limitations Standing,Walking,Balance Symptom Description Constant but Variable Level of pain today (0-10) 2 Pain scale - at its best (0-10) 2 Pain scale - at its worst (0-10) 8 Ankle/Foot Eval Gait Observation General Gait Pattern Observation Trunk Posterior to SLICK Assistive Device Ambulation Assistive Device Straight Cane ROM left Ankle/Foot Dorsiflexion w/Knee Extended -3 Active Range Motion (degrees) Ankle/Foot Plantar Flexion Active Range 44 of Motion (degrees) Ankle/Foot Eversion Active Range of WNL Motion (degrees) Ankle/Foot Inversion Active Range of 28 Motion (degrees) Ankle/Foot ROM Limitations Soft Tissue Tightness Great Toe ROM Reason Not Measured Within Functional Limits right Ankle/Foot Dorsiflexion w/Knee Extended 3 Active Range Motion (degrees) Ankle/Foot Plantar Flexion Active Range WNL of Motion (degrees) Ankle/Foot Eversion Active Range of 22 Motion (degrees) Ankle/Foot Inversion Active Range of 23 Motion (degrees) Ankle/Foot ROM Limitations Soft Tissue Tightness Great Toe ROM Reason Not Measured Within Functional Limits MMT bilateral Ankle Dorsiflexion Strength Grade 4 Good Ankle Plantarflexion Strength Grade 4 Good Foot Eversion Strength Grade 4 Good Foot Inversion Strength Grade 4 Good Special Tests Ankle Anterior Drawer Test Negative Left,Negative Right Foot Interdigital Neuroma Test Negative Left,Negative Right Neuro tests LE Dermatome Level S1 decrease sensation to monofilament Yes Lower Extremity Functional Index Activities Today, do you or would you have any difficulty at all with: a.Any of your usual work, housework or Moderate difficulty school activities b. Your usual hobbies, recreational or Moderate difficulty sporting activities c. Getting into or out of the bath A little bit of difficulty d. Walking between rooms Quite a bit of difficulty e. Putting on your shoes or socks No difficulty f. Squatting Quite a bit of difficulty g. Lifting an object, like a bag of Moderate difficulty groceries from the floor h. Performing light activities around A little bit of difficulty your home i. Performing heavy activities around Quite a bit of difficulty your home j. Getting into or out of a car Moderate difficulty k. Walking 2 blocks Quite a bit of difficulty l. Walking a mile Extreme difficulty or unable to perform activity m. Going up or down 10 stairs (about 1 Quite a bit of difficulty flight of stairs) n. Standing for 1 hour Quite a bit of difficulty o. Sitting for 1 hour Extreme difficulty or unable to perform activity p. Running on even ground Quite a bit of difficulty q. Running on uneven ground Quite a bit of difficulty r. Making sharp turns while running fast Quite a bit of difficulty s. Hopping Extreme difficulty or unable to perform activity t. Rolling over in bed Extreme difficulty or unable to perform activity LEFI Score Lower Extremity Functional Index Score 27 Outpatient Therapy Assessment Impairments Problems/Impairmments Palpation Tenderness,Impaired Range of Motion,Impaired Strength,Impaired Endurance, Impaired Transfers,Impaired Gait Pattern,Impaired Walking, Impaired Standing,Impaired Lifting,Impaired Household Care,Impaired Stair Climbing, Impaired Incline Stepping, Impaired Stepping on Uneven Surface,Impaired Squatting, Impaired Bending,Impaired Balance,Subjective C/O Pain Prognosis Rehab Potential Fair Clinical Impression Consistent with Diagnosis Yes Short Term Goals Number of Weeks 2 Decrease Subjective C/O Pain Yes: 5/10 at worst Patient to be Ind w/ HEP Yes Shelter Goals Number of Weeks 4-6 Increase Range of Motion Yes: WNL Increase Strength Yes: 5/5 BLE Increase Ability to Walk Yes: 30 min without difficulty Increase Ability to Stand Yes: Improve Ability For Household Care Yes Improve Ability to Climb Stairs Yes: 1 flight up/down without difficulty Improve Balance Yes: 10 sec SLS Improve LEFI Score Yes: >50 Decrease Subjective C/O Pain Yes: 2/10 at worst Outpatient Therapy Plan of Care Treatment Plan May Include Therapeutic Exercise Including Home Yes Exercise Program Manual Therapy Techniques Yes Neuromuscular Re-education Yes Therapeutic Activities to Return to Yes Previous Functional/Work Level Gait Training Yes ADL/Self Care Education Yes Dry Needling Yes Thermal Modalities Yes Electrical Stimulation Yes Ultrasound/Phonophoresis Yes Iontophoresis Yes Orthotics/Bracing/Splinting Yes Vasopneumatic Compression Pump Yes Massage Yes Manual Lymphatic Drainage Yes Eval/Re-Eval Yes Aquatic Therapy Yes Frequency Times per week 2 Duration Number of Weeks 4-6 Addendums This patient is a candidate for social No or vocational rehab? Patient/Guardian verbally acknowledges Yes understanding of treatment program and consents to further treatment? Patient/Guardian verbally acknowledges Yes understanding of diagnosis, prognosis and goals for treatment? Eval Complexity PT Charges 80730 - High Complexity Shoulder/Elbow Eval Shoulder Objective Measurements Elbow Objective Measurements PHYSICIAN CERTIFICATION: I certify the specified therapy services for Kaleb Swan are required, authorized, and reviewed every 30 days.
--- NOTE | 2024-05-09 17:54 | HMH.RHREAS ---
Rehab Reassessment Rehab OP Re-assessment Start: 03/11/24 19:43 Freq: Status: Active Protocol: Document 05/09/24 17:49 PHORNE (Rec: 05/09/24 17:54 PHORNE [id number]) E-signed By Blue Rapp, PT Lower Extremity Functional Index Activities Today, do you or would you have any difficulty at all with: a.Any of your usual work, housework or Moderate difficulty school activities b. Your usual hobbies, recreational or A little bit of difficulty sporting activities c. Getting into or out of the bath Quite a bit of difficulty d. Walking between rooms A little bit of difficulty e. Putting on your shoes or socks A little bit of difficulty f. Squatting Quite a bit of difficulty g. Lifting an object, like a bag of A little bit of difficulty groceries from the floor h. Performing light activities around A little bit of difficulty your home i. Performing heavy activities around Moderate difficulty your home j. Getting into or out of a car No difficulty k. Walking 2 blocks Moderate difficulty l. Walking a mile Quite a bit of difficulty m. Going up or down 10 stairs (about 1 Moderate difficulty flight of stairs) n. Standing for 1 hour Quite a bit of difficulty o. Sitting for 1 hour A little bit of difficulty p. Running on even ground Moderate difficulty q. Running on uneven ground Quite a bit of difficulty r. Making sharp turns while running fast Extreme difficulty or unable to perform activity s. Hopping Extreme difficulty or unable to perform activity t. Rolling over in bed Moderate difficulty LEFI Score Lower Extremity Functional Index Score 39 Rehab Re-assessment Subjective Subjective I'm definitely getting better . I'm able to walk around [place] for short distances without my walking stick. He reports he feels much better with general standing balance than he has for quite some time. Objective Objective Notes MMT: 4+/5 grossly Neuro: NT B feet chronic TU sec LEFS: 39 this date vs 27 on IE . Assessment Progress Assessment Progressing as Expected Assessment Notes Pt has shown significant improvements in static and dynamic balance sine the initiation of treatment. Patient would benefit from continuing with skilled PT intervention in order to address functional limitations with all standing/ambulatory activities. No reports of falls since start of care. Patient goals met STG's all Goals Not Met LTGs all Plan Plan Continue with current POC. Frequency of Therapy 2x/week Duration of therapy 4 weeks Time and Billing Re-Eval Time 13 Re-Eval Billing Units 0 PHYSICIAN CERTIFICATION: I certify the specified therapy services for Kaleb Swan are required, authorized, and reviewed every 30 days.
== END 2024-06-15 11:05 | disposition home or self-care (01) ==
LOC: PT 11:00
PROVIDERS: Visit Provider Internal Medicine Medical Oncology
DX: D47.2 Monoclonal gammopathy (principal)
CPT/HCPCS: 97010; 97014; 97110; 97112; 97140; 97163; 97164; 97530; G0283

== ENCOUNTER 2024-06-19 08:14 | Outpatient (CLI) | payer MEDICARE, BC, SELFPAY ==
[2024-06-19 08:19] VITALS: BMI 28.0
[2024-06-19 08:38] LABS: Basophils % 0.2 % (0.1-2.0); Eosinophils % 0.1 % (0.1-12.0); Hematocrit 46.5 % (42.0-52.0); Hemoglobin 14.8 g/dL (14.1-18.0); Lymphocytes # 0.3 K/mm3 (0.7-4.5); Lymphocytes % 4.7 % (10-50); Mean Corpuscular HGB Conc 31.7 g/dL (31.8-35.4); Mean Corpuscular Hemoglobin 33.4 pg (27.0-31.2); Mean Corpuscular Volume 105.2 fl (80-94); Mean Platelet Volume 8.5 fl (7.4-10.4); Monocytes # 0.2 K/mm3 (0.1-1.0); Monocytes % 3.5 % (1.7-9.3); Neutrophils # 6.1 K/mm3 (1.8-7.8); Neutrophils % 91.4 % (37.0-80.0); Platelet Count 124 K/mm3 (142-424); Red Blood Count 4.42 M/mm3 (4.60-6.20); Red Cell Distribution Width 17.1 % (11.5-17.5); White Blood Count 6.7 K/mm3 (4.8-10.8)
[2024-06-19 08:44] LABS: Albumin Level 4.9 g/dl (3.5-5.0); Chloride 98 mmol/L (98-107); MANUAL DIFFERENTIAL MANUAL DIFFERENTIAL (MANUAL DIFF); Potassium 4.3 mmoL/L (3.5-5.1); Sodium 135 mmol/L (136-145)
[2024-06-19 08:47] LABS: Alanine Aminotransferase 16 U/L (12-78); Albumin/Globulin Ratio 1.6 (1.1-1.8); Alkaline Phosphatase 96 U/L (38-126); Anion Gap 11.3 mEq/L (5-15); Aspartate Amino Transferase 25 U/L (17-59); Bilirubin,Total 1.5 mg/dl (0.2-1.3); Blood Urea Nitrogen 24 mg/dl (9-20); Carbon Dioxide 30 mmol/L (22.0-30.0); Creatinine Clearance Estimated 72 mL/min (50-200); Estimated Glomerular Filt Rate 59 ml/min (>60); GFR (African American) 72 ML/MIN (>60); Total Protein,Serum 7.9 g/dl (6.3-8.2)
[2024-06-19 08:48] LABS: Calcium 9.2 mg/dl (8.4-10.2); Glucose 191 mg/dl (74-100)
[2024-06-19] MEDS: PROCHLORPERAZINE 10MG TABLET 10 MG PO (09:10)
[2024-06-19 09:21] LABS: Lymphocytes % 7 % (10-50); Neutrophils % 93 % (42-76); Total Cells Counted 100
[2024-06-19 09:22] LABS: Hypochromasia 1+; Microcytosis 1+; Platelet Estimate Slight Decrease
[2024-06-19 09:34] VITALS: BP 110/79; PULSE 73; RESP 18; TEMP 36.7; O2SAT 97
[2024-06-19] MEDS: BORTEZOMIB 3.5MG VIAL 2.9 MG SQ (09:34)
[2024-06-20 14:09] LABS: Immunoglobulin A, Qn 56 mg/dL (61-437); Immunoglobulin G, Qn 848 mg/dL (603-1613); Immunoglobulin M, Qn 33 mg/dL (15-143)
[2024-06-20 16:14] LABS: Immunoglobulin A, Qn 61 mg/dL (61-437); Immunoglobulin G, Qn 904 mg/dL (603-1613); Immunoglobulin M, Qn 36 mg/dL (15-143)
[2024-06-27 09:40] LABS: Protein, Total 7.1
[2024-06-27 09:41] LABS: Albumin 4.2; Alpha-1-Globulin 0.3
[2024-06-27 09:42] LABS: Alpha-2-Globulin 0.7
[2024-06-27 09:43] LABS: Gamma Globulin 0.8
[2024-06-27 09:44] LABS: Free Kappa Lt Chains 12.9 mg/L; PDF SCANNED IMAGE
== END 2024-06-19 09:45 | disposition home or self-care (01) ==
LOC: INF 08:14
PROVIDERS: PCP Family Medicine; Visit Provider Internal Medicine Medical Oncology
DX: Z51.11 Encounter for antineoplastic chemotherapy (principal); C43.9 Malignant melanoma of skin, unspecified; Z79.899 Other long term (current) drug therapy
CPT/HCPCS: 36415; 80053; 82784; 83883; 84155; 84165; 85007; 85025; 85027; 86334; 96401; J9041; Q0164

== ENCOUNTER 2024-06-26 08:15 | Outpatient (CLI) | payer MEDICARE, BC, SELFPAY ==
[2024-06-26 08:23] VITALS: BMI 28.6
[2024-06-26 08:37] LABS: Basophils % 0.4 % (0.1-2.0); Eosinophils # 0.1 K/mm3 (0.0-0.4); Eosinophils % 1.9 % (0.1-12.0); Hemoglobin 13.9 g/dL (14.1-18.0); Lymphocytes # 0.4 K/mm3 (0.7-4.5); Lymphocytes % 5.8 % (10-50); Mean Corpuscular HGB Conc 31.6 g/dL (31.8-35.4); Mean Corpuscular Hemoglobin 32.8 pg (27.0-31.2); Mean Corpuscular Volume 103.8 fl (80-94); Mean Platelet Volume 9.3 fl (7.4-10.4); Monocytes # 0.3 K/mm3 (0.1-1.0); Monocytes % 4.3 % (1.7-9.3); Neutrophils # 6.4 K/mm3 (1.8-7.8); Neutrophils % 87.6 % (37.0-80.0); Platelet Count 89 K/mm3 (142-424); Red Blood Count 4.24 M/mm3 (4.60-6.20); Red Cell Distribution Width 16.9 % (11.5-17.5); White Blood Count 7.3 K/mm3 (4.8-10.8)
[2024-06-26 08:42] LABS: Albumin Level 4.1 g/dl (3.5-5.0); Chloride 96 mmol/L (98-107); MANUAL DIFFERENTIAL MANUAL DIFFERENTIAL (MANUAL DIFF); Potassium 4.2 mmoL/L (3.5-5.1); Sodium 133 mmol/L (136-145)
[2024-06-26 08:44] LABS: Blood Urea Nitrogen 25 mg/dl (9-20)
[2024-06-26 08:45] LABS: Alanine Aminotransferase 16 U/L (12-78); Albumin/Globulin Ratio 1.6 (1.1-1.8); Alkaline Phosphatase 83 U/L (38-126); Anion Gap 8.2 mEq/L (5-15); Aspartate Amino Transferase 24 U/L (17-59); Bilirubin,Total 1.2 mg/dl (0.2-1.3); Carbon Dioxide 33 mmol/L (22.0-30.0); Creatinine Clearance Estimated 67 mL/min (50-200); Estimated Glomerular Filt Rate 54 ml/min (>60); GFR (African American) 65 ML/MIN (>60); Globulin 2.5 g/dL (1.3-3.2); Glucose 191 mg/dl (74-100); Total Protein,Serum 6.6 g/dl (6.3-8.2)
[2024-06-26 08:50] VITALS: BP 90/57; PULSE 108; RESP 18; TEMP 36.6; O2SAT 98
[2024-06-26] MEDS: PROCHLORPERAZINE 10MG TABLET 10 MG PO (08:50)
[2024-06-26 09:20] VITALS: BP 101/54; PULSE 99; RESP 18; O2SAT 98
[2024-06-26] MEDS: BORTEZOMIB 3.5MG VIAL 2.9 MG SQ (09:20)
[2024-06-26 10:53] LABS: Lymphocytes % 10 % (10-50); Monocytes % 2 % (2-9); Neutrophils % 88 % (42-76); Platelet Estimate Moderate Decrease; Total Cells Counted 100
[2024-06-26 10:54] LABS: Macrocytosis 1+
== END 2024-06-26 09:32 | disposition home or self-care (01) ==
LOC: INF 08:15
PROVIDERS: Internal Medicine Medical Oncology; PCP Family Medicine; Visit Provider Family Medicine
DX: C90.00 Multiple myeloma not having achieved remission (principal)
CPT/HCPCS: 36415; 80053; 85007; 85025; 85027; 96401; J9041; Q0164

== ENCOUNTER 2024-07-03 08:04 | Outpatient (CLI) | payer MEDICARE, BC, SELFPAY ==
[2024-07-03 08:13] VITALS: BMI 28.6
[2024-07-03 08:26] LABS: Basophils % 0.4 % (0.1-2.0); Eosinophils # 0.1 K/mm3 (0.0-0.4); Hematocrit 40.6 % (42.0-52.0); Hemoglobin 12.7 g/dL (14.1-18.0); Lymphocytes # 0.4 K/mm3 (0.7-4.5); Mean Corpuscular HGB Conc 31.3 g/dL (31.8-35.4); Mean Corpuscular Hemoglobin 33.3 pg (27.0-31.2); Mean Corpuscular Volume 106.6 fl (80-94); Mean Platelet Volume 8.8 fl (7.4-10.4); Monocytes # 0.3 K/mm3 (0.1-1.0); Monocytes % 5.9 % (1.7-9.3); Neutrophils # 3.5 K/mm3 (1.8-7.8); Neutrophils % 82.7 % (37.0-80.0); Platelet Count 75 K/mm3 (142-424); Red Blood Count 3.81 M/mm3 (4.60-6.20); Red Cell Distribution Width 16.7 % (11.5-17.5); White Blood Count 4.2 K/mm3 (4.8-10.8)
[2024-07-03] MEDS: PROCHLORPERAZINE 10MG TABLET 10 MG PO (08:30)
[2024-07-03] MEDS: BORTEZOMIB 3.5MG VIAL 2.9 MG SQ (08:58)
[2024-07-03 09:00] VITALS: BP 104/54; PULSE 96; RESP 18; TEMP 36.7; O2SAT 98
== END 2024-07-03 09:10 | disposition home or self-care (01) ==
LOC: INF 08:06
PROVIDERS: PCP Family Medicine; Visit Provider Internal Medicine Medical Oncology
DX: C79.9 Secondary malignant neoplasm of unspecified site (principal)
CPT/HCPCS: 85025; 96401; J9041; Q0164

== ENCOUNTER 2024-07-17 08:05 | Outpatient (CLI) | payer MEDICARE, BC, SELFPAY ==
[2024-07-17] MEDS: BORTEZOMIB 3.5MG VIAL 2.8 MG SQ (08:40)
[2024-07-17 08:44] VITALS: BP 101/61; PULSE 85; RESP 18; TEMP 36.7; O2SAT 100
== END 2024-07-17 08:44 | disposition home or self-care (01) ==
LOC: INF 08:06
PROVIDERS: PCP Family Medicine; Visit Provider Internal Medicine Medical Oncology
DX: C90.00 Multiple myeloma not having achieved remission (principal)
CPT/HCPCS: 96401; J9041

== ENCOUNTER 2024-07-24 08:07 | Outpatient (CLI) | payer MEDICARE, BC, SELFPAY ==
[2024-07-24] MEDS: BORTEZOMIB 3.5MG VIAL 2.8 MG SQ (08:32)
[2024-07-24 08:37] VITALS: BP 132/49; PULSE 91; RESP 18; TEMP 36.8; O2SAT 98
== END 2024-07-24 08:37 | disposition home or self-care (01) ==
LOC: INF 08:08
PROVIDERS: PCP Family Medicine; Visit Provider Family Medicine
DX: C90.00 Multiple myeloma not having achieved remission (principal)
CPT/HCPCS: 96401; J9041

== ENCOUNTER 2024-07-31 08:20 | Outpatient (CLI) | payer MEDICARE, BC, SELFPAY ==
[2024-07-31 08:27] VITALS: BMI 28.6
--- NOTE | 2024-07-31 08:33 | PC.NURSE ---
0833-collected labs via venipuncture stick in right ac with butterfly needle;pt to oncology appointment and to return for treatment.
[2024-07-31 08:52] LABS: Basophils % 0.4 % (0.1-2.0); Eosinophils # 0.1 K/mm3 (0.0-0.4); Eosinophils % 1.2 % (0.1-12.0); Hematocrit 42.7 % (42.0-52.0); Lymphocytes # 0.3 K/mm3 (0.7-4.5); Lymphocytes % 5.2 % (10-50); Mean Corpuscular HGB Conc 32.8 g/dL (31.8-35.4); Mean Corpuscular Hemoglobin 34.3 pg (27.0-31.2); Mean Corpuscular Volume 104.6 fl (80-94); Monocytes # 0.4 K/mm3 (0.1-1.0); Monocytes % 6.1 % (1.7-9.3); Neutrophils # 5.6 K/mm3 (1.8-7.8); Neutrophils % 87.1 % (37.0-80.0); Platelet Count 92 K/mm3 (142-424); Red Blood Count 4.08 M/mm3 (4.60-6.20); Red Cell Distribution Width 17.1 % (11.5-17.5); White Blood Count 6.4 K/mm3 (4.8-10.8)
[2024-07-31 08:54] LABS: MANUAL DIFFERENTIAL MANUAL DIFFERENTIAL (MANUAL DIFF)
[2024-07-31 08:58] LABS: Alanine Aminotransferase 12 U/L (12-78); Albumin Level 4.6 g/dl (3.5-5.0); Albumin/Globulin Ratio 1.9 (1.1-1.8); Alkaline Phosphatase 80 U/L (38-126); Aspartate Amino Transferase 22 U/L (17-59); Bilirubin,Total 1.2 mg/dl (0.2-1.3); Blood Urea Nitrogen 21 mg/dl (9-20); Calcium 9.2 mg/dl (8.4-10.2); Carbon Dioxide 33 mmol/L (22.0-30.0); Chloride 98 mmol/L (98-107); Creatinine Clearance Estimated 73 mL/min (50-200); Estimated Glomerular Filt Rate 59 ml/min (>60); GFR (African American) 72 ML/MIN (>60); Globulin 2.4 g/dL (1.3-3.2); Glucose 166 mg/dl (74-100); Sodium 136 mmol/L (136-145)
[2024-07-31 09:03] LABS: Anion Gap 8.7 mEq/L (5-15); Potassium 3.7 mmoL/L (3.5-5.1)
[2024-07-31 09:14] LABS: Lymphocytes % 9 % (10-50); Macrocytosis 1+; Neutrophils % 91 % (42-76); Platelet Estimate Moderate Decrease; Total Cells Counted 100
[2024-07-31] MEDS: BORTEZOMIB 3.5MG VIAL 2.8 MG SQ (10:17)
[2024-07-31 10:19] VITALS: BP 103/41; PULSE 92; RESP 18; TEMP 36.7; O2SAT 100
[2024-08-01 16:26] LABS: Albumin 3.7 g/dL (2.9-4.4); Alpha-1-Globulin 0.2 g/dL (0.0-0.4); Alpha-2-Globulin 0.6 g/dL (0.4-1.0); Gamma Globulin 0.4 g/dL (0.4-1.8); Immunoglobulin A, Qn 40 mg/dL (61-437); Immunoglobulin G, Qn 537 mg/dL (603-1613); Immunoglobulin M, Qn 26 mg/dL (15-143); Protein, Total 5.8 g/dL (6.0-8.5)
[2024-08-01 17:11] LABS: Free Kappa Lt Chains 13.3 mg/L (3.3-19.4); Free Lambda Lt Chains 11.8 mg/L (5.7-26.3)
== END 2024-07-31 10:21 | disposition home or self-care (01) ==
PROVIDERS: PCP Family Medicine; Visit Provider Internal Medicine Medical Oncology
DX: D47.2 Monoclonal gammopathy (principal)
CPT/HCPCS: 80053; 82784; 83883; 84155; 84165; 85007; 85025; 85027; 86334; 96401; J9041

== ENCOUNTER 2024-08-07 08:13 | Outpatient (CLI) | payer MEDICARE, BC, SELFPAY ==
[2024-08-07 08:41] VITALS: BP 107/69; PULSE 72; RESP 20; TEMP 36.2; O2SAT 100
[2024-08-07] MEDS: BORTEZOMIB 3.5MG VIAL 2.8 MG SQ (08:41)
[2024-08-07] MEDS: DENOSUMAB 120MG/1.7ML VIAL 120 MG SQ (08:42)
== END 2024-08-07 09:02 | disposition home or self-care (01) ==
LOC: INF 08:14
PROVIDERS: PCP Family Medicine; Visit Provider Internal Medicine Medical Oncology
DX: C90.00 Multiple myeloma not having achieved remission (principal)
CPT/HCPCS: 96372; 96401; J0897; J9041

== ENCOUNTER 2024-08-14 08:01 | Outpatient (CLI) | payer MEDICARE, BC, SELFPAY ==
[2024-08-14 08:37] VITALS: BP 108/67; PULSE 93; RESP 18; TEMP 36.6; O2SAT 97
[2024-08-14] MEDS: BORTEZOMIB 3.5MG VIAL 2.8 MG SQ (08:37)
== END 2024-08-14 08:48 | disposition home or self-care (01) ==
LOC: INF 08:03
PROVIDERS: PCP Family Medicine; Visit Provider Internal Medicine Medical Oncology
DX: C90.00 Multiple myeloma not having achieved remission (principal)
CPT/HCPCS: 96401; J9041

== ENCOUNTER 2024-08-21 08:21 | Outpatient (CLI) | payer MEDICARE, BC, SELFPAY ==
[2024-08-21 08:28] VITALS: BMI 28.6
--- NOTE | 2024-08-21 08:35 | PC.NURSE ---
venipuncture draw drawn from LAC. pt tolerated well. blood return noted. blood tubes collected and sent to lab. needle removed. 2x2s and coban in place. bleeding controlled.
[2024-08-21 08:49] LABS: Basophils % 0.3 % (0.1-2.0); Eosinophils % 0.6 % (0.1-12.0); Hematocrit 41.4 % (42.0-52.0); Hemoglobin 14.3 g/dL (14.1-18.0); Lymphocytes # 0.3 K/mm3 (0.7-4.5); Lymphocytes % 5.9 % (10-50); Mean Corpuscular HGB Conc 34.4 g/dL (31.8-35.4); Mean Corpuscular Volume 98.7 fl (80-94); Mean Platelet Volume 8.8 fl (7.4-10.4); Monocytes # 0.3 K/mm3 (0.1-1.0); Monocytes % 4.4 % (1.7-9.3); Neutrophils # 5.1 K/mm3 (1.8-7.8); Neutrophils % 88.9 % (37.0-80.0); Platelet Count 81 K/mm3 (142-424); White Blood Count 5.8 K/mm3 (4.8-10.8)
[2024-08-21 08:53] LABS: MANUAL DIFFERENTIAL MANUAL DIFFERENTIAL (MANUAL DIFF)
[2024-08-21 08:59] LABS: Alanine Aminotransferase 40 U/L (12-78); Albumin Level 4.3 g/dl (3.5-5.0); Alkaline Phosphatase 62 U/L (38-126); Anion Gap 6.6 mEq/L (5-15); Aspartate Amino Transferase 26 U/L (17-59); Bilirubin,Total 1.1 mg/dl (0.2-1.3); Blood Urea Nitrogen 23 mg/dl (9-20); Calcium 9.1 mg/dl (8.4-10.2); Carbon Dioxide 33 mmol/L (22.0-30.0); Chloride 104 mmol/L (98-107); Creatinine Clearance Estimated 80 mL/min (50-200); Estimated Glomerular Filt Rate 65 ml/min (>60); GFR (African American) 79 ML/MIN (>60); Globulin 2.1 g/dL (1.3-3.2); Glucose 172 mg/dl (74-100); Potassium 3.6 mmoL/L (3.5-5.1); Sodium 140 mmol/L (136-145); Total Protein,Serum 6.4 g/dl (6.3-8.2)
[2024-08-21 09:33] LABS: Lymphocytes % 4 % (10-50); Monocytes % 2 % (2-9); Neutrophils % 94 % (42-76); Platelet Estimate Moderate Decrease; RBC Morphology Normal; Total Cells Counted 100
[2024-08-21 09:39] VITALS: BP 102/72; PULSE 82; RESP 18; TEMP 36.2; O2SAT 98
[2024-08-21] MEDS: BORTEZOMIB 3.5MG VIAL 2.8 MG SUBCUT (09:39)
[2024-08-22 13:41] LABS: Alpha-1-Globulin 0.2 g/dL (0.0-0.4); Alpha-2-Globulin 0.6 g/dL (0.4-1.0); Gamma Globulin 0.5 g/dL (0.4-1.8); Protein, Total 6.1 g/dL (6.0-8.5)
[2024-08-22 16:14] LABS: Free Kappa Lt Chains 11.2 mg/L (3.3-19.4); Free Lambda Lt Chains 11.1 mg/L (5.7-26.3); Immunoglobulin A, Qn 40 mg/dL (61-437); Immunoglobulin G, Qn 518 mg/dL (603-1613); Immunoglobulin M, Qn 20 mg/dL (15-143)
== END 2024-08-21 10:00 | disposition home or self-care (01) ==
LOC: INF 08:22
PROVIDERS: PCP Family Medicine; Visit Provider Internal Medicine Medical Oncology
DX: C90.00 Multiple myeloma not having achieved remission (principal)
CPT/HCPCS: 36415; 80053; 82784; 83883; 84155; 84165; 85007; 85025; 85027; 86334; 96401; J9041

== ENCOUNTER 2024-08-28 08:14 | Outpatient (CLI) | payer MEDICARE, BC, SELFPAY ==
[2024-08-28] MEDS: BORTEZOMIB 3.5MG VIAL 2.8 MG SUBCUT (08:41)
[2024-08-28 08:48] VITALS: BP 83/52; PULSE 100; RESP 18; O2SAT 100
== END 2024-08-28 08:48 | disposition home or self-care (01) ==
LOC: INF 08:15
PROVIDERS: PCP Family Medicine; Visit Provider Internal Medicine Medical Oncology
DX: C90.00 Multiple myeloma not having achieved remission (principal)
CPT/HCPCS: 96401; J9041

== ENCOUNTER 2024-09-04 08:02 | Outpatient (CLI) | payer MEDICARE, BC, SELFPAY ==
[2024-09-04] MEDS: DENOSUMAB 120MG/1.7ML VIAL 120 MG SUBCUT (08:37)
[2024-09-04] MEDS: BORTEZOMIB 3.5MG VIAL 2.8 MG SUBCUT (08:37)
[2024-09-04 08:50] VITALS: BP 85/56; PULSE 89; RESP 18; TEMP 36.7; O2SAT 98
== END 2024-09-04 08:58 | disposition home or self-care (01) ==
LOC: INF 08:04
PROVIDERS: PCP Family Medicine; Visit Provider Internal Medicine Medical Oncology
DX: C90.00 Multiple myeloma not having achieved remission (principal)
CPT/HCPCS: 96372; 96401; J0897; J9041

== ENCOUNTER 2024-09-11 08:09 | Outpatient (CLI) | payer MEDICARE, BC, SELFPAY ==
--- NOTE | 2024-09-11 08:20 | PC.NURSE ---
0820-sgibsonrn collected labs via venipuncture stick with butterfly needle.pt to oncology appt and to return for treatment.
[2024-09-11 08:35] LABS: Basophils % 0.8 % (0.1-2.0); Eosinophils # 0.1 K/mm3 (0.0-0.4); Eosinophils % 1.3 % (0.1-12.0); Hematocrit 42.7 % (42.0-52.0); Hemoglobin 14.5 g/dL (14.1-18.0); Lymphocytes # 0.4 K/mm3 (0.7-4.5); Mean Corpuscular Hemoglobin 33.4 pg (27.0-31.2); Mean Corpuscular Volume 98.3 fl (80-94); Mean Platelet Volume 8.2 fl (7.4-10.4); Monocytes # 0.3 K/mm3 (0.1-1.0); Monocytes % 4.9 % (1.7-9.3); Neutrophils # 4.7 K/mm3 (1.8-7.8); Platelet Count 88 K/mm3 (142-424); Red Blood Count 4.35 M/mm3 (4.60-6.20); Red Cell Distribution Width 16.5 % (11.5-17.5); White Blood Count 5.5 K/mm3 (4.8-10.8)
[2024-09-11 08:40] LABS: Lymphocytes % 8.1 % (10-50); Neutrophils % 84.9 % (37.0-80.0)
[2024-09-11 08:53] LABS: Alanine Aminotransferase 12 U/L (12-78); Albumin Level 4.2 g/dl (3.5-5.0); Albumin/Globulin Ratio 2.1 (1.1-1.8); Alkaline Phosphatase 73 U/L (38-126); Anion Gap 11.2 mEq/L (5-15); Aspartate Amino Transferase 30 U/L (17-59); Bilirubin,Total 0.9 mg/dl (0.2-1.3); Blood Urea Nitrogen 28 mg/dl (9-20); Calcium 8.9 mg/dl (8.4-10.2); Carbon Dioxide 32 mmol/L (22.0-30.0); Chloride 101 mmol/L (98-107); Estimated Glomerular Filt Rate 65 ml/min (>60); GFR (African American) 79 ML/MIN (>60); Glucose 152 mg/dl (74-100); Potassium 4.2 mmoL/L (3.5-5.1); Sodium 140 mmol/L (136-145); Total Protein,Serum 6.2 g/dl (6.3-8.2)
[2024-09-11] MEDS: BORTEZOMIB 3.5MG VIAL 2.8 MG SUBCUT (10:01)
[2024-09-11 10:08] VITALS: BP 83/62; PULSE 92; RESP 18; TEMP 36.7; O2SAT 97
[2024-09-12 17:43] LABS: Albumin 3.9 g/dL (2.9-4.4); Alpha-1-Globulin 0.3 g/dL (0.0-0.4); Alpha-2-Globulin 0.8 g/dL (0.4-1.0); Gamma Globulin 0.5 g/dL (0.4-1.8); Protein, Total 6.4 g/dL (6.0-8.5)
[2024-09-13 16:14] LABS: Immunoglobulin A, Qn 45 mg/dL (61-437); Immunoglobulin G, Qn 496 mg/dL (603-1613); Immunoglobulin M, Qn 18 mg/dL (15-143)
== END 2024-09-11 10:08 | disposition home or self-care (01) ==
LOC: INF 08:10
PROVIDERS: PCP Family Medicine; Visit Provider Internal Medicine Medical Oncology
DX: D47.2 Monoclonal gammopathy (principal)
CPT/HCPCS: 80053; 82784; 84155; 84165; 85025; 86334; 96401; J9041

== ENCOUNTER 2024-09-18 07:58 | Outpatient (CLI) | payer MEDICARE, BC, SELFPAY ==
[2024-09-18] MEDS: DEXAMETHASONE 4MG TABLET 40 MG PO (08:35)
[2024-09-18 08:36] VITALS: BP 129/81; PULSE 91; RESP 18; TEMP 36.8; O2SAT 97
[2024-09-18] MEDS: BORTEZOMIB 3.5MG VIAL 2.8 MG SUBCUT (08:36)
--- NOTE | 2024-09-19 15:11 | DIET.NUTRFU ---
RD received consult for 1st chemo dose. Patient reports no loss of appetite or nausea at this time. Reviewing his chart wt loss of approx 10# over the last year. He did not seemed concerned. Provided name and contact information for any future concerns.
== END 2024-09-18 09:00 | disposition home or self-care (01) ==
LOC: INF 07:59
PROVIDERS: PCP Family Medicine; Visit Provider Internal Medicine Medical Oncology
DX: C90.00 Multiple myeloma not having achieved remission (principal)
CPT/HCPCS: J8540; 96401; J9041

== ENCOUNTER 2024-09-25 08:00 | Outpatient (CLI) | payer MEDICARE, BC, SELFPAY ==
[2024-09-25] MEDS: BORTEZOMIB 3.5MG VIAL 2.8 MG SUBCUT (08:26)
[2024-09-25 08:39] VITALS: BP 85/52; PULSE 82; RESP 18; O2SAT 95
== END 2024-09-25 08:39 | disposition home or self-care (01) ==
LOC: INF 08:02
PROVIDERS: PCP Family Medicine; Visit Provider Internal Medicine Medical Oncology
DX: D47.2 Monoclonal gammopathy (principal)
CPT/HCPCS: 96401; J9041

== ENCOUNTER 2024-10-02 08:03 | Outpatient (CLI) | payer MEDICARE, BC, SELFPAY ==
[2024-10-02 08:40] VITALS: BP 101/66; PULSE 74; RESP 18; TEMP 36.3; O2SAT 97
[2024-10-02] MEDS: DENOSUMAB 120MG/1.7ML VIAL 120 MG SUBCUT (08:40)
[2024-10-02] MEDS: BORTEZOMIB 3.5MG VIAL 2.8 MG SUBCUT (08:40)
== END 2024-10-02 08:50 | disposition home or self-care (01) ==
LOC: INF 08:04
PROVIDERS: PCP Family Medicine; Visit Provider Internal Medicine Medical Oncology
DX: C90.00 Multiple myeloma not having achieved remission (principal)
CPT/HCPCS: 96372; 96401; J0897; J9041

== ENCOUNTER 2024-10-09 08:08 | Outpatient (CLI) | payer MEDICARE, BC, SELFPAY ==
--- NOTE | 2024-10-09 08:26 | PC.NURSE ---
10/09/24 0825 pt presents for weekly tx. Labs checked today. Venipuncture performed using butterfly access needle x 1 stick to pt's rt ac per Wanda Spann RN, blood drawn. Needle withdrawn and site secured with 2x2 gauze and coban.
[2024-10-09 08:40] LABS: Basophils % 0.5 % (0.1-2.0); Eosinophils # 0.1 K/mm3 (0.0-0.4); Eosinophils % 1.7 % (0.1-12.0); Hematocrit 44.9 % (42.0-52.0); Hemoglobin 15.1 g/dL (14.1-18.0); Lymphocytes # 0.6 K/mm3 (0.7-4.5); Lymphocytes % 9.6 % (10-50); Mean Corpuscular HGB Conc 33.6 g/dL (31.8-35.4); Mean Corpuscular Hemoglobin 33.1 pg (27.0-31.2); Mean Corpuscular Volume 98.5 fl (80-94); Mean Platelet Volume 8.9 fl (7.4-10.4); Monocytes # 0.5 K/mm3 (0.1-1.0); Monocytes % 7.8 % (1.7-9.3); Neutrophils # 5.1 K/mm3 (1.8-7.8); Neutrophils % 80.5 % (37.0-80.0); Platelet Count 78 K/mm3 (142-424); Red Blood Count 4.55 M/mm3 (4.60-6.20); Red Cell Distribution Width 16.3 % (11.5-17.5); White Blood Count 6.4 K/mm3 (4.8-10.8)
[2024-10-09 08:55] LABS: Chloride 101 mmol/L (98-107)
[2024-10-09 08:56] LABS: Albumin Level 4.3 g/dl (3.5-5.0); Sodium 140 mmol/L (136-145)
[2024-10-09 08:58] LABS: Blood Urea Nitrogen 33 mg/dl (9-20); Estimated Glomerular Filt Rate 59 ml/min (>60); GFR (African American) 72 ML/MIN (>60)
[2024-10-09 08:59] LABS: Alanine Aminotransferase 37 U/L (12-78); Alkaline Phosphatase 82 U/L (38-126); Aspartate Amino Transferase 36 U/L (17-59); Bilirubin,Total 1.1 mg/dl (0.2-1.3); Calcium 9.5 mg/dl (8.4-10.2); Carbon Dioxide 33 mmol/L (22.0-30.0); Globulin 2.2 g/dL (1.3-3.2); Glucose 143 mg/dl (74-100); Total Protein,Serum 6.5 g/dl (6.3-8.2)
[2024-10-09 10:00] VITALS: BP 126/81; PULSE 84; RESP 20; TEMP 36.4; O2SAT 97
[2024-10-09] MEDS: BORTEZOMIB 3.5MG VIAL 2.8 MG SUBCUT (10:00)
[2024-10-10 15:10] LABS: Free Kappa Lt Chains 8.4 mg/L (3.3-19.4); Free Lambda Lt Chains 8.1 mg/L (5.7-26.3)
== END 2024-10-09 10:20 | disposition home or self-care (01) ==
LOC: INF 08:09
PROVIDERS: PCP Family Medicine; Visit Provider Internal Medicine Medical Oncology
DX: D47.2 Monoclonal gammopathy (principal)
CPT/HCPCS: 36415; 80053; 82784; 83883; 85025; 96401; J9041

== ENCOUNTER 2024-10-16 08:00 | Outpatient (CLI) | payer MEDICARE, BC, SELFPAY ==
[2024-10-16 08:33] VITALS: BP 114/66; PULSE 83; RESP 18; TEMP 36.6; O2SAT 98
[2024-10-16] MEDS: BORTEZOMIB 3.5MG VIAL 2.8 MG SUBCUT (08:33)
== END 2024-10-16 08:45 | disposition home or self-care (01) ==
LOC: INF 08:01
PROVIDERS: PCP Family Medicine; Visit Provider Internal Medicine Medical Oncology
DX: D47.2 Monoclonal gammopathy (principal)
CPT/HCPCS: 96401; J9041

== ENCOUNTER 2024-10-22 08:01 | Outpatient (CLI) | payer MEDICARE, BC, SELFPAY ==
[2024-10-22] MEDS: BORTEZOMIB 3.5MG VIAL 2.8 MG SUBCUT (08:41)
[2024-10-22 08:45] VITALS: BP 135/78; PULSE 100; RESP 18; TEMP 36.7; O2SAT 98
== END 2024-10-22 08:55 | disposition home or self-care (01) ==
LOC: INF 08:03
PROVIDERS: PCP Family Medicine; Visit Provider Internal Medicine Medical Oncology
DX: C90.00 Multiple myeloma not having achieved remission (principal)
CPT/HCPCS: 96401; J9041

== ENCOUNTER 2024-10-30 08:11 | Outpatient (CLI) | payer MEDICARE, BC, SELFPAY ==
[2024-10-30 08:20] VITALS: BMI 28.3
[2024-10-30 08:40] LABS: Basophils % 0.6 % (0.1-2.0); Eosinophils # 0.1 K/mm3 (0.0-0.4); Eosinophils % 0.7 % (0.1-12.0); Hematocrit 44.2 % (42.0-52.0); Hemoglobin 14.6 g/dL (14.1-18.0); Lymphocytes # 0.4 K/mm3 (0.7-4.5); Lymphocytes % 5.8 % (10-50); Mean Corpuscular Hemoglobin 32.7 pg (27.0-31.2); Mean Corpuscular Volume 98.9 fl (80-94); Monocytes # 0.3 K/mm3 (0.1-1.0); Monocytes % 5.1 % (1.7-9.3); Neutrophils # 5.9 K/mm3 (1.8-7.8); Neutrophils % 87.2 % (37.0-80.0); Platelet Count 112 K/mm3 (142-424); Red Blood Count 4.47 M/mm3 (4.60-6.20); Red Cell Distribution Width 15.2 % (11.5-17.5); White Blood Count 6.7 K/mm3 (4.8-10.8)
[2024-10-30 08:44] LABS: Chloride 97 mmol/L (98-107); MANUAL DIFFERENTIAL MANUAL DIFFERENTIAL (MANUAL DIFF); Sodium 135 mmol/L (136-145)
[2024-10-30 08:45] LABS: Potassium 4.1 mmoL/L (3.5-5.1)
[2024-10-30 08:47] LABS: Alanine Aminotransferase 13 U/L (12-78); Albumin/Globulin Ratio 1.9 (1.1-1.8); Alkaline Phosphatase 86 U/L (38-126); Anion Gap 8.1 mEq/L (5-15); Aspartate Amino Transferase 27 U/L (17-59); Bilirubin,Total 0.7 mg/dl (0.2-1.3); Blood Urea Nitrogen 25 mg/dl (9-20); Carbon Dioxide 34 mmol/L (22.0-30.0); Creatinine Clearance Estimated 72 mL/min (50-200); Estimated Glomerular Filt Rate 59 ml/min (>60); GFR (African American) 72 ML/MIN (>60); Globulin 2.1 g/dL (1.3-3.2); Total Protein,Serum 6.1 g/dl (6.3-8.2)
[2024-10-30 08:48] LABS: Calcium 9.4 mg/dl (8.4-10.2); Glucose 204 mg/dl (74-100)
[2024-10-30 09:13] LABS: Lymphocytes % 4 % (10-50); Monocytes % 5 % (2-9); Neutrophils % 91 % (42-76); Platelet Estimate Slight Decrease; RBC Morphology Normal; Total Cells Counted 100
[2024-10-30 09:26] VITALS: BP 109/40; PULSE 86; RESP 18; TEMP 36.6; O2SAT 95
[2024-10-30] MEDS: BORTEZOMIB 3.5MG VIAL 2.8 MG SUBCUT (09:26)
--- NOTE | 2024-10-30 12:20 | PC.NURSE ---
10/30/24 0830 Venipuncture performed using butterfly needle x 1 stick to pt's rt ac, blood drawn for labs as ordered per md. Specimen taken to lab for analysis. Will await results prior to proceeding with tx.
== END 2024-10-30 09:55 | disposition home or self-care (01) ==
LOC: INF 08:15
PROVIDERS: PCP Family Medicine; Visit Provider Internal Medicine Medical Oncology
DX: C90.00 Multiple myeloma not having achieved remission (principal)
CPT/HCPCS: 36415; 80053; 85007; 85025; 96401; J9041

== ENCOUNTER 2024-11-10 18:07 | Emergency (ER) | payer MEDICARE, BC, SELFPAY ==
[2024-11-10 18:22] VITALS: BP 115/68; PULSE 61; RESP 18; TEMP 37.4; O2SAT 92; BMI 27.1
--- NOTE | 2024-11-10 18:31 | XR_ITS ---
PROCEDURE INFORMATION: Exam: XR Chest Exam date and time: 11/10/2024 6:35 PM Age: 74 years old Clinical indication: Cough and dyspnea; Additional info: Rib pain TECHNIQUE: Imaging protocol: Radiologic exam of the chest. Views: 2 views. COMPARISON: 1. CT ANGIO CHEST 05/03/2024 11:23 AM 2. CR XR CHEST 2V 12/31/2020 11:20 AM 3. CR XR RIBS LT MIN 3V W CXR1V 03/22/2024 9:45 AM FINDINGS: Tubes, catheters and devices: Stable position of the dual lead pacer. Lungs: Unremarkable. No consolidation. Pleural spaces: Unremarkable. No pleural effusion. No pneumothorax. Heart/Mediastinum: Post open heart changes. Heart size normal. Bones/joints: Incidental multiple healing or healed left rib fractures as noted on prior CT chest of 05/03/2024. Bony structures otherwise unremarkable. IMPRESSION: No acute disease. Healing or healed left rib fractures.
[2024-11-10 18:55] LABS: Coronavirus 19, PCR Not Detected (NotDetected); Influenza A, PCR Not Detected (NotDetected); Influenza B, PCR Not Detected (NotDetected)
--- NOTE | 2024-11-10 19:15 | ED_ITS ---
Discharge Plan Disposition Patient Disposition: Home, Self-Care Condition: Fair Prescriptions Prescriptions: New dexamethasone 1.5 mg (51 tabs) tablets,dose pack 1.5 mg PO DAILY Qty: 51 0RF doxycycline hyclate 100 mg capsule 100 mg PO BID 10 Days Qty: 20 0RF No Action tamsulosin 0.4 mg capsule 0.4 mg PO DAILY Jardiance 10 mg tablet 10 mg PO DAILY amitriptyline 25 mg tablet 100 mg PO HS Patient Comments: TAKE FOUR TABLETS BY MOUTH EVERY NIGHT pregabalin 50 mg capsule 50 mg PO TID Patient Comments: TAKE ONE CAPSULE BY MOUTH THREE TIMES DAILY MAY CAUSE DROWSINESS hydrochlorothiazide 25 mg tablet 25 mg PO DAILY Patient Comments: TAKE ONE TABLET BY MOUTH EVERY DAY ammonium lactate 12 % cream 1 applic topical BID Qty: 385 1RF mupirocin 2 % ointment 1 applic topical BID 14 Days Qty: 15 0RF atorvastatin 40 mg tablet 40 mg PO HS omeprazole 40 mg capsule,delayed release(DR/EC) 40 mg PO DAILY Patient Comments: TAKE ONE CAPSULE BY MOUTH EVERY DAY levothyroxine 75 mcg tablet 75 mcg PO DAILY lenalidomide 20 mg capsule 20 mg PO DAILY acyclovir 800 mg tablet 800 mg PO BID Qty: 60 3RF dexamethasone 4 mg tablet 40 mg PO ONCE Qty: 40 3RF Xarelto 20 mg tablet 20 mg PO DAILY Qty: 30 5RF Rx Instructions: must administer with evening meal furosemide [Lasix] 40 mg tablet 40 mg PO DAILY PRN (Reason: edema) Qty: 15 2RF bisoprolol fumarate 5 MG tablet 5 mg PO DAILY aspirin 81 mg Tablet,Chewable 81 mg PO DAILY Referrals Follow up/Referrals: Kai Shea MD [Primary Care Provider] - See instructions Activity Restrictions/Add. Instructions Additional Instructions/Restrictions: Increase fluids and rest. Take meds as directed. If any other problems or concerns please return to the ED. Clinical Impressions Clinical Impression: Bronchitis Instructions Patient Instructions: DI for Acute Bronchitis Print Language Print Language: Chinese Discharge ED Provider: Pretty Hernández General Adult HPI General Chief complaint: Upper Respiratory Infection Stated complaint: cough annika Time Seen by Provider: 11/10/24 18:16 Mode of Arrival: Wheelchair Source of Information: Patient Limitations: No Limitations Description of Symptoms (Recalled from ER Triage Doc. by RN): pt C/O [id number], N/V/D started today. fall at 430pm today on buttocks, did not hit head, no pain from fall, History of Present Illness HPI narrative: This is a 74-year-old male who presents to the ED today for complaint of cough, nausea, vomiting and diarrhea that started today. He has had a low-grade temp. He does feel weak. He did fall when he got up from his chair today at 1630. He is on a blood thinner but did not hit his head. He has no pain from the fall. He says he went down in front of his chair on his bottom. Patient is on chemo for acute myeloma. Related Data Home Medications ?Medication ?Instructions ?Recorded ?Confirmed atorvastatin 40 mg tablet 40 mg PO HS Cholesterol 12/20/17 10/30/24 tamsulosin 0.4 mg capsule 0.4 mg PO DAILY prostate 07/03/19 10/30/24 bisoprolol fumarate 5 mg tablet 5 mg PO DAILY bp 01/08/21 10/30/24 omeprazole 40 mg capsule,delayed 40 mg PO DAILY GERD 02/16/21 10/30/24 release levothyroxine 75 mcg tablet 75 mcg PO DAILY thyroid supplement 12/16/22 10/30/24 empagliflozin 10 mg tablet 10 mg PO DAILY Diabetes 01/21/23 10/30/24 (Jardiance) amitriptyline 25 mg tablet 100 mg PO HS 08/25/23 10/30/24 pregabalin 50 mg capsule 50 mg PO TID 01/10/24 10/30/24 aspirin 81 mg chewable tablet 81 mg PO DAILY 03/16/24 10/30/24 lenalidomide 20 mg capsule 20 mg PO DAILY 04/17/24 10/30/24 hydrochlorothiazide 25 mg tablet 25 mg PO DAILY 05/16/24 10/30/24 Previous Rx's ?Medication ?Instructions ?Recorded acyclovir 800 mg tablet 800 mg PO BID #60 tabs 08/21/24 dexamethasone 4 mg tablet 40 mg (10 x 4 mg) PO ONCE take 10 09/18/24 tablets once weekly #40 tabs ammonium lactate 12 % topical cream 1 applic topical BID dry skin, 10/17/24 callus care #385 grams mupirocin 2 % topical ointment 1 applic topical BID infection 14 10/17/24 days #15 grams rivaroxaban 20 mg tablet (Xarelto) 20 mg PO DAILY #30 tabs 10/17/24 furosemide 40 mg tablet (Lasix) 40 mg PO DAILY PRN edema #15 tabs 11/01/24 dexamethasone 1.5 mg (51 tabs) 1.5 mg PO DAILY #51 tabs 11/10/24 tablets in a dose pack doxycycline hyclate 100 mg capsule 100 mg PO BID 10 days #20 caps 11/10/24 Allergies Allergy/AdvReac Type Severity Reaction Status Date / Time No Known Allergies Allergy Verified 10/30/24 12:21 [facility] Disclaimer: The information contained in this section may have been updated after the patient was seen, as this information can be updated by other users. Medical History Abnormal ankle brachial index (SARAY) Parkinson disease DM2 (diabetes mellitus, type 2) Chest pain CAD (coronary artery disease) Cardiomyopathy Bilateral leg pain PAD (peripheral artery disease) MIO (obstructive sleep apnea) Hyperlipidemia Hypertensive heart disease without heart failure Neuropathy Surgical History History of colonoscopy History of heart bypass surgery Family History Other No significant family history Social History (Updated 10/30/24 @ 10:26 by Marko Alvarado RN) Smoking Status: Never smoker alcohol intake: never substance use type: denies use current occupational status: retired Travel in the last 8 weeks: Inside the [place] household members: spouse housing: house 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: Yes Have you lived/traveled outside [place] in past 30 days?: No Contact w/someone who lives/traveled outside US past 30 days?: No Exposure to someone with infectious disease in past 14 days?: No Do you have a fever (greater than 100.4 F or 38 C)?: No Have you tested positive for COVID-19: No Exposed to someone with COVID-19 in past 14 days?: No Do you have a sore throat?: No Do you have a cough?: No Do you have any weakness?: No Do you have any diarrhea?: No Are you experiencing any unusual bleeding?: No Do you have any muscle aches/pain?: No Do you have any abdominal pain?: No Are you experiencing loss of taste or smell?: No Other Medical History Have you received the Flu Vaccine for this season: No Have you received the Pneumonia Vaccine: No ROS Obtained: Yes Systems reviewed as appropriate & no additional complaints except as documented Constitutional Constitutional: Reports as per HPI Physical Exam General General appearance: alert and in no apparent distress Head Head exam: atraumatic and normocephalic Eye Eye exam: Present normal appearance, PERRL and EOMI ENT ENT exam: Present normal exam, normal oropharynx and mucous membranes moist Neck Neck exam: Present full ROM and trachea midline Respiratory Respiratory exam: Present normal lung sounds bilaterally Cardiovascular Cardiovascular exam: Present regular rate, normal rhythm, normal heart sounds, +S1 and +S2 Abdominal Exam Abdominal exam: Present soft and normal bowel sounds Extremities Exam Extremities exam: Present full ROM and normal capillary refill Back Exam Back exam: Present normal inspection Neurological Exam Neurological exam: Present alert and oriented X3 Skin Skin exam: Present warm, dry and intact Medical Decision Making Medical Records Screening: Per USPSTF and CDC recommendations, given the prevalence of disease in our region, it is our hospital?s policy to screen for HIV and viral Hepatitis for all patients aged 18 and over and those with ongoing risk factors. Ruddy Inquiry Pt receiving controlled substance: No Ruddy was queried for this patient: No Vital Signs: 11/10/24 18:22 11/10/24 20:15 Temperature 99.3 F 98.2 F Temperature Source Oral Oral Pulse Rate 100 H Pulse Rate [Left Radial] 61 Respiratory Rate 18 20 Blood Pressure 119/82 Blood Pressure [Left Arm] 115/68 Blood Pressure Mean [Left Arm] 83 02 Sat by Pulse Oximetry 92 L Oxygen Delivery Method Room Air Room Air Lab Data Lab Results 11/10/24 18:50: SARS-CoV-2 (PCR) Not detected, Influenza A Untype (PCR) Not detected, Influenza Type B (PCR) Not detected 11/10/24 19:30: WBC 6.2, RBC 4.49 L, Hgb 14.6, Hct 43.4, MCV 96.7 H, MCH 32.5 H, MCHC 33.6, RDW 14.6, Plt Count 95 L, MPV 9.8, Neut % (Auto) 88.1 H, Lymph % (Auto) 4.9 L, [place] % (Auto) 6.2, Eos % (Auto) 0.0 L, Baso % (Auto) 0.3, Neut # (Auto) 5.4, Lymph # (Auto) 0.3 L, [place] # (Auto) 0.4, Eos # (Auto) 0.0, Baso # (Auto) 0.0, Sodium 134 L, Potassium 3.5, Chloride 96 L, Carbon Dioxide 32 H, Anion Gap 9.5, BUN 27 H, Creatinine 1.10, Estimated Creat Clear 76, Estimated GFR 65, Est GFR ( Amer) 79, Glucose 235 H, Calcium 9.1, Total Bilirubin 1.3, AST 35, ALT 22, Alkaline Phosphatase 95, Total Protein 6.8, Albumin 4.4, Globulin 2.4, Albumin/Globulin Ratio 1.8, Lipase 82 11/10/24 19:30 11/10/24 19:30 Orders (Tests/Meds): ED MEDICATIONS Discontinued Medications Generic Name Dose Route Start Last Admin Trade Name Freq PRN Reason Stop Dose Admin Sodium Chloride 1,000 mls @ 999 mls/hr 11/10/24 18:30 11/10/24 19:42 Sod Chlor 0.9% 1000ml Bag IV 11/10/24 19:30 999 mls/hr .Q1H1M ONE Administration ORDERS Category Date Time Status Chest XR 2 view (NOT portable) [XR chest 2V] Stat Exams 11/10/24 18:31 Completed CBC [Complete Blood Count Auto Diff] Stat Lab 11/10/24 19:30 Completed Comprehensive Metabolic Panel Stat Lab 11/10/24 19:30 Completed Lipase Stat Lab 11/10/24 19:30 Completed Rapid PCR Covid and Flu A/B Stat Lab 11/10/24 18:50 Completed Medical Decision Narrative: Insert review patient is a 74-year-old male presenting to the emergency department for evaluation of cough, nausea, vomiting and diarrhea as well as a low-grade fever of 99.3.. Patient is hemodynamically stable and nontoxic- appearing upon arrival, afebrile. Differential diagnosis includes viral illness, pneumonia among others. Workup will be conducted with hematologic labs, specific imaging including chest x-ray. Initial inventions include flu swab, close COVID swab and chest x-ray. Initial workup reviewed by me revealed no COVID or flu and no pneumonia. Imaging informally interpreted by me and remarkable for nothing acute. Formal imaging read remarkable for nothing acute. Upon repeat evaluation patient's pain is improved however patient does still have a cough and does sound junky so we will treat with antibiotics and steroids. He is high risk for pneumonia as he has cancer. Family prefers this as his chemo will be delayed if he is ill he will not receive treatment. Critical Care Critical Care Time Critical Care Time: No
[2024-11-10 19:38] LABS: Basophils % 0.3 % (0.1-2.0); Hematocrit 43.4 % (42.0-52.0); Hemoglobin 14.6 g/dL (14.1-18.0); Lymphocytes # 0.3 K/mm3 (0.7-4.5); Lymphocytes % 4.9 % (10-50); Mean Corpuscular HGB Conc 33.6 g/dL (31.8-35.4); Mean Corpuscular Hemoglobin 32.5 pg (27.0-31.2); Mean Corpuscular Volume 96.7 fl (80-94); Mean Platelet Volume 9.8 fl (7.4-10.4); Monocytes # 0.4 K/mm3 (0.1-1.0); Monocytes % 6.2 % (1.7-9.3); Neutrophils # 5.4 K/mm3 (1.8-7.8); Neutrophils % 88.1 % (37.0-80.0); Platelet Count 95 K/mm3 (142-424); Red Blood Count 4.49 M/mm3 (4.60-6.20); Red Cell Distribution Width 14.6 % (11.5-17.5); White Blood Count 6.2 K/mm3 (4.8-10.8)
[2024-11-10] MEDS: 0.9 % SODIUM CHLORIDE 1000ML 1,000 ML 999 ML IV (19:42)
[2024-11-10 19:46] LABS: Albumin Level 4.4 g/dl (3.5-5.0); Chloride 96 mmol/L (98-107); Potassium 3.5 mmoL/L (3.5-5.1); Sodium 134 mmol/L (136-145)
[2024-11-10 19:48] LABS: Blood Urea Nitrogen 27 mg/dl (9-20); Creatinine Clearance Estimated 76 mL/min (50-200); Estimated Glomerular Filt Rate 65 ml/min (>60); GFR (African American) 79 ML/MIN (>60)
[2024-11-10 19:49] LABS: Alanine Aminotransferase 22 U/L (12-78); Albumin/Globulin Ratio 1.8 (1.1-1.8); Alkaline Phosphatase 95 U/L (38-126); Anion Gap 9.5 mEq/L (5-15); Aspartate Amino Transferase 35 U/L (17-59); Bilirubin,Total 1.3 mg/dl (0.2-1.3); Calcium 9.1 mg/dl (8.4-10.2); Carbon Dioxide 32 mmol/L (22.0-30.0); Globulin 2.4 g/dL (1.3-3.2); Glucose 235 mg/dl (74-100); Lipase 82 U/L (23-300); Total Protein,Serum 6.8 g/dl (6.3-8.2)
[2024-11-10 20:15] VITALS: BP 119/82; PULSE 100; RESP 20; TEMP 36.8; O2SAT 96
--- NOTE | 2024-11-10 20:17 | PC.NURSE ---
Pt awake and alert Gait steady with his cane. Skin pale warm and dry REsp full and easy. Speech clear and appropriate at time of discharge
== END 2024-11-10 20:26 | disposition home or self-care (01) ==
PROVIDERS: Nurse Practitioner; Emergency Provider Student in an Organized Health Care Education/Training Program; PCP Family Medicine
DX: J40 Bronchitis, not specified as acute or chronic (principal); R05.9 Cough, unspecified; R11.2 Nausea with vomiting, unspecified; R19.7 Diarrhea, unspecified; R50.9 Fever, unspecified
CPT/HCPCS: 71046; 80053; 83690; 85025; 87636; 96360; 99283; J7030

== ENCOUNTER 2024-11-13 08:03 | Outpatient (CLI) | payer MEDICARE, BC, SELFPAY ==
[2024-11-13] VITALS (8 sets, daily range): BP systolic 95–118; BP diastolic 59–80; PULSE 81–91; RESP 14–18; TEMP 36.6–36.8; O2SAT 96–98
--- NOTE | 2024-11-13 08:25 | PC.NURSE ---
0825-m.gonzález pedroza collected labs via venipuncture stick with butterfly needle in right ac; pt to get treatment and oncology appt
[2024-11-13 08:37] LABS: Basophils % 0.1 % (0.1-2.0); Hemoglobin 14.5 g/dL (14.1-18.0); Lymphocytes # 0.8 K/mm3 (0.7-4.5); Lymphocytes % 8.1 % (10-50); Mean Corpuscular HGB Conc 33.7 g/dL (31.8-35.4); Mean Corpuscular Hemoglobin 32.8 pg (27.0-31.2); Mean Corpuscular Volume 97.3 fl (80-94); Mean Platelet Volume 10.1 fl (7.4-10.4); Monocytes # 0.6 K/mm3 (0.1-1.0); Monocytes % 6.2 % (1.7-9.3); Neutrophils # 8.1 K/mm3 (1.8-7.8); Neutrophils % 84.9 % (37.0-80.0); Platelet Count 166 K/mm3 (142-424); Red Blood Count 4.42 M/mm3 (4.60-6.20); Red Cell Distribution Width 14.4 % (11.5-17.5); White Blood Count 9.5 K/mm3 (4.8-10.8)
[2024-11-13] MEDS: BORTEZOMIB 3.5MG VIAL 2.8 MG SUBCUT (08:44)
[2024-11-13] MEDS: DENOSUMAB 120MG/1.7ML VIAL 120 MG SUBCUT (08:44)
[2024-11-13 08:49] LABS: Albumin Level 4.5 g/dl (3.5-5.0); Chloride 97 mmol/L (98-107); Sodium 137 mmol/L (136-145)
[2024-11-13 08:51] LABS: Blood Urea Nitrogen 44 mg/dl (9-20); Estimated Glomerular Filt Rate 54 ml/min (>60); GFR (African American) 65 ML/MIN (>60)
[2024-11-13 08:52] LABS: Alanine Aminotransferase 43 U/L (12-78); Albumin/Globulin Ratio 1.6 (1.1-1.8); Alkaline Phosphatase 83 U/L (38-126); Anion Gap 11.9 mEq/L (5-15); Aspartate Amino Transferase 65 U/L (17-59); Bilirubin,Total 0.8 mg/dl (0.2-1.3); Calcium 8.7 mg/dl (8.4-10.2); Carbon Dioxide 31 mmol/L (22.0-30.0); Globulin 2.8 g/dL (1.3-3.2); Glucose 177 mg/dl (74-100); Total Protein,Serum 7.3 g/dl (6.3-8.2)
[2024-11-13 08:58] LABS: Potassium 2.9 mmoL/L (3.5-5.1)
--- NOTE | 2024-11-13 09:06 | PC.NURSE ---
0825 Labs obtained per MD order via venipuncture to R AC x 1 stick with butterfly needle. Patient tolerated well.
[2024-11-13 09:52] LABS: Magnesium 2.2 mg/dl (1.6-2.3)
[2024-11-13] MEDS: SODIUM CHLORIDE 0.9% 50ML BAG 50 ML IV (10:51)
[2024-11-13] MEDS: KCl 10mEq/100ml 100 ML 100 MEQ IV ×3 (10:51→13:05)
[2024-11-13] MEDS: SODIUM CHLORIDE 0.9% 10ML FLUSH SYRINGE 10 ML IV (10:51)
[2024-11-15 16:11] LABS: Immunoglobulin A, Qn 143 mg/dL (61-437); Immunoglobulin G, Qn 780 mg/dL (603-1613); Immunoglobulin M, Qn 29 mg/dL (15-143)
[2024-11-15 17:47] LABS: Albumin 3.6 g/dL (2.9-4.4); Alpha-1-Globulin 0.4 g/dL (0.0-0.4); Alpha-2-Globulin 1.1 g/dL (0.4-1.0); Gamma Globulin 0.8 g/dL (0.4-1.8); Protein, Total 6.9 g/dL (6.0-8.5)
== END 2024-11-13 14:10 | disposition home or self-care (01) ==
LOC: INF 08:06
PROVIDERS: PCP Family Medicine; Visit Provider Internal Medicine Medical Oncology
DX: D47.2 Monoclonal gammopathy (principal)
CPT/HCPCS: 80053; 82784; 83735; 84155; 84165; 85025; 86334; 96365; 96366; 96372; 96401; J0897; J3480; J9041

== ENCOUNTER 2024-11-15 08:04 | Outpatient (CLI) | payer MEDICARE, BC, SELFPAY ==
--- NOTE | 2024-11-15 08:15 | PC.NURSE ---
Pt presents for repeat labs. Venipuncture performed per Susan Garrido RN using butterfly access needle x 1 stick to pt's lt fa. Blood drawn for labs as ordered per md and specimen sent to lab for analysis. Needle withdrawn and site secured with 2x2 gauze and coban.
[2024-11-15 08:39] LABS: Albumin Level 4.1 g/dl (3.5-5.0); Chloride 98 mmol/L (98-107); Sodium 135 mmol/L (136-145)
[2024-11-15 08:42] LABS: Alanine Aminotransferase 42 U/L (12-78); Albumin/Globulin Ratio 1.7 (1.1-1.8); Alkaline Phosphatase 72 U/L (38-126); Aspartate Amino Transferase 57 U/L (17-59); Blood Urea Nitrogen 34 mg/dl (9-20); Calcium 9.1 mg/dl (8.4-10.2); Carbon Dioxide 28 mmol/L (22.0-30.0); Estimated Glomerular Filt Rate 65 ml/min (>60); GFR (African American) 79 ML/MIN (>60); Globulin 2.4 g/dL (1.3-3.2); Glucose 193 mg/dl (74-100); Total Protein,Serum 6.5 g/dl (6.3-8.2)
== END 2024-11-15 08:49 | disposition home or self-care (01) ==
LOC: INF 08:06
PROVIDERS: PCP Family Medicine; Visit Provider Internal Medicine Medical Oncology
DX: D47.2 Monoclonal gammopathy (principal)
CPT/HCPCS: 36415; 80053

== ENCOUNTER 2024-11-20 08:05 | Outpatient (CLI) | payer MEDICARE, BC, SELFPAY ==
[2024-11-20 10:32] VITALS: BP 123/68; PULSE 74; RESP 20; TEMP 36.2; O2SAT 99
[2024-11-20] MEDS: BORTEZOMIB 3.5MG VIAL 2.8 MG SUBCUT (10:32)
== END 2024-11-20 10:50 | disposition home or self-care (01) ==
LOC: INF 08:07
PROVIDERS: PCP Family Medicine; Visit Provider Internal Medicine Medical Oncology
DX: D47.2 Monoclonal gammopathy (principal)
CPT/HCPCS: 96401; J9041

== ENCOUNTER 2024-11-27 07:57 | Outpatient (CLI) | payer MEDICARE, BC, SELFPAY ==
[2024-11-27] MEDS: BORTEZOMIB 3.5MG VIAL 2.8 MG SUBCUT (08:31)
[2024-11-27 08:36] VITALS: BP 117/81; PULSE 65; RESP 18; TEMP 36.3; O2SAT 100
== END 2024-11-27 08:36 | disposition home or self-care (01) ==
LOC: INF 07:58
PROVIDERS: PCP Family Medicine; Visit Provider Internal Medicine Medical Oncology
DX: C43.9 Malignant melanoma of skin, unspecified (principal)
CPT/HCPCS: 96401; J9041

== ENCOUNTER 2024-12-04 08:03 | Outpatient (CLI) | payer MEDICARE, BC, SELFPAY ==
[2024-12-04 08:20] VITALS: BMI 27.8
[2024-12-04 08:30] LABS: Basophils % 0.4 % (0.1-2.0); Eosinophils % 0.5 % (0.1-12.0); Hematocrit 41.3 % (42.0-52.0); Hemoglobin 13.8 g/dL (14.1-18.0); Lymphocytes # 0.4 K/mm3 (0.7-4.5); Lymphocytes % 4.4 % (10-50); Mean Corpuscular HGB Conc 33.4 g/dL (31.8-35.4); Mean Corpuscular Hemoglobin 33.2 pg (27.0-31.2); Mean Corpuscular Volume 99.3 fl (80-94); Mean Platelet Volume 10.3 fl (7.4-10.4); Monocytes # 0.3 K/mm3 (0.1-1.0); Monocytes % 3.3 % (1.7-9.3); Neutrophils # 7.2 K/mm3 (1.8-7.8); Platelet Count 81 K/mm3 (142-424); Red Blood Count 4.16 M/mm3 (4.60-6.20); Red Cell Distribution Width 15.5 % (11.5-17.5); White Blood Count 7.9 K/mm3 (4.8-10.8)
[2024-12-04 08:31] LABS: MANUAL DIFFERENTIAL MANUAL DIFFERENTIAL (MANUAL DIFF)
[2024-12-04 08:36] VITALS: BP 115/77; PULSE 105; RESP 18; TEMP 36.7; O2SAT 98
[2024-12-04] MEDS: BORTEZOMIB 3.5MG VIAL 2.8 MG SUBCUT (08:36)
[2024-12-04 08:42] LABS: Chloride 97 mmol/L (98-107)
[2024-12-04 08:43] LABS: Albumin Level 3.9 g/dl (3.5-5.0); Potassium 3.9 mmoL/L (3.5-5.1)
[2024-12-04 08:45] LABS: Alanine Aminotransferase 27 U/L (12-78); Aspartate Amino Transferase 27 U/L (17-59); Blood Urea Nitrogen 20 mg/dl (9-20); Carbon Dioxide 30 mmol/L (22.0-30.0); Creatinine Clearance Estimated 71 mL/min (50-200); Estimated Glomerular Filt Rate 59 ml/min (>60); GFR (African American) 72 ML/MIN (>60)
[2024-12-04 08:46] LABS: Albumin/Globulin Ratio 1.9 (1.1-1.8); Alkaline Phosphatase 92 U/L (38-126); Bilirubin,Total 1.1 mg/dl (0.2-1.3); Globulin 2.1 g/dL (1.3-3.2); Glucose 189 mg/dl (74-100)
[2024-12-04 08:47] LABS: Anion Gap 11.9 mEq/L (5-15); Sodium 135 mmol/L (136-145)
--- NOTE | 2024-12-04 08:47 | XR_ITS ---
FINAL REPORT CLINICAL HISTORY: dyspnea COMPARISON: 12/31/2020 FINDINGS: CHEST 2 VIEWS PA AND LATERAL The heart is normal in size. Patient is status post median sternotomy. Pacer is identified. The lungs are clear. There is no pneumothorax. IMPRESSION: No acute process. Reviewed, Interpreted and Dictated by Jim Bertrand MD Transcribed by Geetha Chew Authenticated and [facility]
--- NOTE | 2024-12-04 08:47 | XR_ITS ---
FINAL REPORT CLINICAL HISTORY: knee pain COMPARISON: 02/18/2023 FINDINGS: Left knee Three views were obtained. There is no fracture or dislocation. There is significant medial compartment joint space narrowing, significantly more evident than previous. There is mild subchondral sclerosis and small osteophyte formation along the undersurface of the patella. No soft tissue abnormality is identified. IMPRESSION: Significant degenerative changes, more evident than previous. Reviewed, Interpreted and Dictated by Jim Bertrand MD Transcribed by Geetha Chew Authenticated and [facility]
--- NOTE | 2024-12-04 08:47 | XR_ITS ---
FINAL REPORT CLINICAL HISTORY: knee pain COMPARISON: 02/18/2023 FINDINGS: Right knee Three views were obtained. There is no fracture or dislocation. Mild lateral compartment joint space narrowing is considerably more evident than previous. There is minimal osteophyte formation along the undersurface of the patella. No soft tissue abnormality is identified. IMPRESSION: Degenerative changes, more evident than previous. Reviewed, Interpreted and Dictated by Jim Bertrand MD Transcribed by Geetha Chew Authenticated and [facility]
[2024-12-04 10:54] LABS: Lymphocytes % 9 % (10-50); Monocytes % 4 % (2-9); Neutrophils % 87 % (42-76); Platelet Estimate Moderate Decrease; RBC Morphology Normal; Total Cells Counted 100
== END 2024-12-04 08:46 | disposition home or self-care (01) ==
LOC: INF 08:05
PROVIDERS: PCP Family Medicine; Visit Provider Internal Medicine Medical Oncology
DX: C90.00 Multiple myeloma not having achieved remission (principal); R06.09 Other forms of dyspnea; E66.9 Obesity, unspecified; E78.49 Other hyperlipidemia; G47.33 Obstructive sleep apnea (adult) (pediatric); I73.9 Peripheral vascular disease, unspecified; I42.9 Cardiomyopathy, unspecified; I25.10 Atherosclerotic heart disease of native coronary artery without angina pectoris; M17.0 Bilateral primary osteoarthritis of knee
CPT/HCPCS: 36415; 71046; 73562; 80053; 85007; 85025; 96401; J9041

== ENCOUNTER 2024-12-11 07:54 | Outpatient (CLI) | payer MEDICARE, BC, SELFPAY ==
[2024-12-11] MEDS: DENOSUMAB 120MG/1.7ML VIAL 120 MG SUBCUT (08:25)
[2024-12-11] MEDS: BORTEZOMIB 3.5MG VIAL 2.8 MG SUBCUT (08:25)
[2024-12-11 08:30] VITALS: BP 108/65; PULSE 64; RESP 18; TEMP 36.6; O2SAT 97
== END 2024-12-11 08:45 | disposition home or self-care (01) ==
LOC: INF 07:56
PROVIDERS: PCP Family Medicine; Visit Provider Internal Medicine Medical Oncology
DX: D47.2 Monoclonal gammopathy (principal)
CPT/HCPCS: 96372; 96401; J0897; J9041

== ENCOUNTER 2024-12-18 08:04 | Outpatient (CLI) | payer MEDICARE, BC, SELFPAY ==
[2024-12-18 08:33] LABS: Basophils % 0.4 % (0.1-2.0); Eosinophils % 0.2 % (0.1-12.0); Hematocrit 41.8 % (42.0-52.0); Hemoglobin 13.9 g/dL (14.1-18.0); Lymphocytes # 0.3 K/mm3 (0.7-4.5); Lymphocytes % 3.1 % (10-50); Mean Corpuscular HGB Conc 33.3 g/dL (31.8-35.4); Mean Corpuscular Hemoglobin 32.9 pg (27.0-31.2); Mean Corpuscular Volume 98.8 fl (80-94); Monocytes # 0.4 K/mm3 (0.1-1.0); Monocytes % 4.3 % (1.7-9.3); Neutrophils # 7.7 K/mm3 (1.8-7.8); Neutrophils % 91.1 % (37.0-80.0); Platelet Count 110 K/mm3 (142-424); Red Blood Count 4.23 M/mm3 (4.60-6.20); Red Cell Distribution Width 15.5 % (11.5-17.5); White Blood Count 8.5 K/mm3 (4.8-10.8)
[2024-12-18 08:37] LABS: Albumin Level 4.2 g/dl (3.5-5.0); Chloride 95 mmol/L (98-107); Potassium 3.9 mmoL/L (3.5-5.1); Sodium 136 mmol/L (136-145)
[2024-12-18 08:40] LABS: Alanine Aminotransferase 13 U/L (12-78); Albumin/Globulin Ratio 1.8 (1.1-1.8); Alkaline Phosphatase 97 U/L (38-126); Anion Gap 10.9 mEq/L (5-15); Aspartate Amino Transferase 29 U/L (17-59); Bilirubin,Total 1.2 mg/dl (0.2-1.3); Blood Urea Nitrogen 25 mg/dl (9-20); Calcium 9.3 mg/dl (8.4-10.2); Carbon Dioxide 34 mmol/L (22.0-30.0); Estimated Glomerular Filt Rate 73 ml/min (>60); GFR (African American) 88 ML/MIN (>60); Globulin 2.3 g/dL (1.3-3.2); Glucose 202 mg/dl (74-100); Total Protein,Serum 6.5 g/dl (6.3-8.2)
[2024-12-18 08:43] LABS: MANUAL DIFFERENTIAL MANUAL DIFFERENTIAL (MANUAL DIFF)
--- NOTE | 2024-12-18 10:09 | PC.NURSE ---
0820 Labs obtained as ordered via venipuncture to R AC x1 stick with butterfly needle. Patient has appointment with Dr. Eason this am. Patient tolerated well.
--- NOTE | 2024-12-18 10:11 | PC.NURSE ---
1012 Patient not receiving Velcade today per MD order. Patient discharged home/stable. Patient has follow-up on 01/15/25.
[2024-12-18 11:34] LABS: Lymphocytes % 3 % (10-50); Monocytes % 3 % (2-9); Neutrophils % 93 % (42-76); Platelet Estimate Normal; Total Cells Counted 100
[2024-12-18 11:35] LABS: RBC Morphology Normal
[2024-12-19 15:11] LABS: Albumin 3.8 g/dL (2.9-4.4); Alpha-1-Globulin 0.3 g/dL (0.0-0.4); Alpha-2-Globulin 0.7 g/dL (0.4-1.0); Gamma Globulin 0.6 g/dL (0.4-1.8); Protein, Total 6.3 g/dL (6.0-8.5)
== END 2024-12-18 10:15 | disposition home or self-care (01) ==
LOC: INF 08:05
PROVIDERS: PCP Family Medicine; Visit Provider Internal Medicine Medical Oncology
DX: D47.2 Monoclonal gammopathy (principal)
CPT/HCPCS: 36415; 80053; 82784; 84155; 84165; 85007; 85025

== ENCOUNTER 2024-12-31 10:40 | Emergency (ER) | payer MEDICARE, BC, SELFPAY ==
[2024-12-31 10:42] VITALS: BP 135/80; PULSE 70; RESP 20; TEMP 36.8; O2SAT 100; BMI 27.5
--- NOTE | 2024-12-31 11:10 | XR_ITS ---
FINAL REPORT TECHNIQUE: Right knee 4 views CLINICAL HISTORY: knee pain FINDINGS: RIGHT KNEE: 4 images of the right knee were obtained. There is no evidence of fracture or dislocation. There is moderate tricompartment degenerative change present. A small joint effusion is noted. IMPRESSION: Moderate tricompartment degenerative change without acute bony abnormality. Reviewed, Interpreted and Dictated by Katlin Chiang MD Transcribed by Tammie Donald Authenticated and [facility]
[2024-12-31 13:01] VITALS: BP 107/77; PULSE 106; O2SAT 98
--- NOTE | 2024-12-31 13:09 | ED_ITS ---
<Statement entered by Pretty Hernández MD - 01/03/25 15:21> I was consulted by the YENNIFER, and we discussed the complexity of the problems being addressed. I approved the treatment and management plan for this patient's care in the emergency department, thus performing a substantive portion of the medical decision making. Pretty Hernández MD, BELLA, FACEP Discharge Plan Disposition Patient Disposition: Home, Self-Care Prescriptions Prescriptions: No Action tamsulosin 0.4 mg capsule 0.4 mg PO DAILY Jardiance 10 mg tablet 10 mg PO DAILY pregabalin 50 mg capsule 50 mg PO BID Patient Comments: TAKE ONE CAPSULE BY MOUTH THREE TIMES DAILY MAY CAUSE DROWSINESS hydrochlorothiazide 25 mg tablet 25 mg PO DAILY Patient Comments: TAKE ONE TABLET BY MOUTH EVERY DAY atorvastatin 40 mg tablet 40 mg PO HS omeprazole 40 mg capsule,delayed release(DR/EC) 40 mg PO DAILY levothyroxine 75 mcg tablet 75 mcg PO DAILYDM amitriptyline 25 mg tablet 100 mg PO HS bisoprolol fumarate 5 MG tablet 5 mg PO DAILY aspirin 81 mg Tablet,Chewable 81 mg PO DAILY potassium chloride 20 mEq tablet,ER particles/crystals 20 meq PO DAILY dexamethasone 4 mg tablet 20 mg PO WEEKLY Patient Comments: TAKE 10 TABLETS BY MOUTH ONCE WEEKLY losartan 100 mg tablet 100 mg PO DAILY acyclovir 800 mg tablet 800 mg PO BID Xarelto 20 mg tablet 20 mg PO QPMWITHMEAL cephalexin 500 mg capsule 500 mg PO QID Qty: 40 0RF Referrals Follow up/Referrals: Kai Shea MD [Primary Care Provider] - See instructions Activity Restrictions/Add. Instructions Additional Instructions/Restrictions: Your labs from your blood work shows significant systemic inflammatory process that is ongoing. Unclear as to exactly what is causing your knee pain and swelling. The concern right now is that it is a possible septic joint. Your arthrocentesis/knee fluid labs are pending and should be resulted sometime this evening. Please call back at 9 PM if you have not heard from us. Please return with any significant worsening or other concerns. Clinical Impressions Clinical Impression: Effusion of knee joint right Print Language Print Language: Andorran Discharge ED Provider: Pretty Hernández General Adult HPI <CARLOS Cerda - Last Filed: 12/31/24 15:31> General Chief complaint: Extremity Problem,Nontraumatic Stated complaint: pain in right knees no weight bearing Time Seen by Provider: 12/31/24 13:00 Mode of Arrival: Wheelchair Source of Information: Patient and Spouse Description of Symptoms (Recalled from ER Triage Doc. by RN): pt is here today for right knee pain x 4 days, no known trauma, gets shots in it a month ago, took tylenol at home and using icy hot History of Present Illness HPI narrative: Patient presents for right knee pain. Patient states that his right knee has hurt for the past 4 days. Is painful to bear weight. He denies any trauma or known injury. Patient does have significant bilateral osteoarthritis and has been getting cortisone injections in this knee most recently as December. Denies fever chills hemoptysis hematochezia melena nausea vomit diarrhea. Related Data Home Medications ?Medication ?Instructions ?Recorded ?Confirmed atorvastatin 40 mg tablet 40 mg PO HS 12/20/17 01/01/25 tamsulosin 0.4 mg capsule 0.4 mg PO DAILY 07/03/19 01/01/25 bisoprolol fumarate 5 mg tablet 5 mg PO DAILY 01/08/21 01/01/25 omeprazole 40 mg capsule,delayed 40 mg PO DAILY 02/16/21 01/01/25 release levothyroxine 75 mcg tablet 75 mcg PO DAILYDM 12/16/22 01/01/25 empagliflozin 10 mg tablet 10 mg PO DAILY 01/21/23 01/01/25 (Jardiance) pregabalin 50 mg capsule 50 mg PO BID 01/10/24 01/01/25 aspirin 81 mg chewable tablet 81 mg PO DAILY 03/16/24 01/01/25 hydrochlorothiazide 25 mg tablet 25 mg PO DAILY 05/16/24 01/01/25 amitriptyline 25 mg tablet 100 mg PO HS 12/18/24 01/01/25 acyclovir 800 mg tablet 800 mg PO BID 01/01/25 01/01/25 dexamethasone 4 mg tablet 20 mg PO WEEKLY 01/01/25 01/01/25 losartan 100 mg tablet 100 mg PO DAILY 01/01/25 01/01/25 potassium chloride 20 mEq 20 meq PO DAILY 01/01/25 01/01/25 tablet,extended release(part/cryst) rivaroxaban 20 mg tablet (Xarelto) 20 mg PO QPMWITHMEAL 01/01/25 01/01/25 Previous Rx's ?Medication ?Instructions ?Recorded cephalexin 500 mg capsule 500 mg PO QID #40 caps 01/03/25 Allergies Allergy/AdvReac Type Severity Reaction Status Date / Time No Known Allergies Allergy Verified 12/18/24 09:40 PFS <CARLOS Cerda - Last Filed: 12/31/24 15:31> [facility], LAT[facility] Disclaimer: The information contained in this section may have been updated after the patient was seen, as this information can be updated by other users. Medical History (Updated 01/01/25 @ 14:54 by Geetha Velez APRN) Cataract GERD (gastroesophageal reflux disease) Hypothyroid Multiple myeloma Abnormal ankle brachial index (SARAY) Parkinson disease DM2 (diabetes mellitus, type 2) Chest pain CAD (coronary artery disease) Cardiomyopathy Bilateral leg pain PAD (peripheral artery disease) MIO (obstructive sleep apnea) Hyperlipidemia Hypertensive heart disease without heart failure Neuropathy Surgical History (Updated 01/01/25 @ 14:54 by Geetha Velez APRN) History of cataract surgery Hx of cholecystectomy AICD (automatic cardioverter/defibrillator) present History of colonoscopy History of heart bypass surgery Family History Other No significant family history Social History (Updated 01/01/25 @ 12:38 by Amanda Cuellar RN) Smoking Status: Never smoker alcohol intake: never substance use type: denies use current occupational status: retired Travel in the last 8 weeks: Inside the [place] household members: spouse housing: house 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: Yes Other Medical History Have you received the Flu Vaccine for this season: No Have you received the Pneumonia Vaccine: No <CARLOS Cerda - Last Filed: 12/31/24 15:31> ROS Obtained: Yes Systems reviewed as appropriate & no additional complaints except as documented Physical Exam <CARLOS Cerda - Last Filed: 12/31/24 15:31> General General appearance: alert and in no apparent distress Respiratory Respiratory exam: Present normal lung sounds bilaterally Cardiovascular Cardiovascular exam: Present regular rate Neurological Exam Neurological exam: Present alert and oriented X3 Medical Decision Making <CARLOS Cerda - Last Filed: 12/31/24 15:31> Medical Records Medical records reviewed: Yes I reviewed the patient's medical records. Screening: Per USPSTF and CDC recommendations, given the prevalence of disease in our region, it is our hospital?s policy to screen for HIV and viral Hepatitis for all patients aged 18 and over and those with ongoing risk factors. Ruddy Inquiry Pt receiving controlled substance: No Vital Signs: 12/31/24 10:42 12/31/24 13:01 12/31/24 14:00 Temperature 98.3 F Temperature Source Oral Pulse Rate 106 H Pulse Rate [Left Radial] 70 Respiratory Rate 20 Blood Pressure 107/77 L 97/67 L Blood Pressure [Right Arm] 135/80 Blood Pressure Mean 89 77 Blood Pressure Mean [Right Arm] 98 02 Sat by Pulse Oximetry 100 98 Oxygen Delivery Method Room Air 12/31/24 16:00 Temperature 98.2 F Temperature Source Pulse Rate 90 Pulse Rate [Left Radial] Respiratory Rate 20 Blood Pressure 140/80 Blood Pressure [Right Arm] Blood Pressure Mean Blood Pressure Mean [Right Arm] 02 Sat by Pulse Oximetry Oxygen Delivery Method Room Air Lab Data Lab results reviewed: Yes I reviewed the patient's lab results. Lab Results 12/31/24 14:25: WBC 6.8, RBC 4.09 L, Hgb 13.4 L, Hct 40.5 L, MCV 99.0 H, MCH 32.8 H, MCHC 33.1, RDW 15.1, Plt Count 167, MPV 9.5, Neut % (Auto) 83.0 H, Lymph % (Auto) 6.9 L, [place] % (Auto) 8.1, Eos % (Auto) 0.7, Baso % (Auto) 0.4, Neut # (Auto) 5.7, Lymph # (Auto) 0.5 L, [place] # (Auto) 0.6, Eos # (Auto) 0.1, Baso # (Auto) 0.0, ESR 70 H, Sodium 136, Potassium 4.1, Chloride 96 L, Carbon Dioxide 34 H, Anion Gap 10.1, BUN 25 H, Creatinine 1.00, Estimated Creat Clear 84, Estimated GFR 73, Est GFR ( Amer) 88, Glucose 143 H, Calcium 9.7, Total Bilirubin 1.0, AST 27, ALT 24, Alkaline Phosphatase 94, C-Reactive Protein 88.2 H, Total Protein 7.0, Albumin 4.4, Globulin 2.6, Albumin/Globulin Ratio 1.7 12/31/24 : Synovial Crystals See comment 01/01/25 : Fluid Clarity Cloudy, Synovial Color Yellow, Synovial RBC 5,000, Synovial Tot Nuc Cell 44,000, Synovial Eosinophils% 0, Synovial Polynuclear % 41,800, Synovial Lymphocytes % 1, Synovial Macrophages % 1,760, Synovial Fluid Comment 12/31/24 14:25 12/31/24 14:25 Orders (Tests/Meds): ED MEDICATIONS Discontinued Medications Generic Name Dose Route Start Last Admin Trade Name Barry PRN Reason Stop Dose Admin Acetaminophen 1,000 mg 12/31/24 13:27 12/31/24 13:32 Acetaminophen 500mg Tab PO 12/31/24 13:28 1,000 mg ONCE ONE Administration ORDERS Category Date Time Status Knee XR right 3 views [XR knee RT 3V] Stat Exams 12/31/24 11:10 Completed POCUS Point of Care (ER Only) Stat Exams 12/31/24 13:19 Completed CBC w/Auto Diff [Complete Blood Count Auto Diff] Stat Lab 12/31/24 14:25 Completed CMP [Comprehensive Metabolic Panel] Stat Lab 12/31/24 14:25 Completed CRP [C-Reactive Protein] Stat Lab 12/31/24 14:[address] Synovial w/o Crystals Stat Lab 01/01/25 Completed ESR [Erythrocyte Sedimentation Rate] Stat Lab 12/31/24 14:25 Completed Body Fluid Cult & Gram Stain Stat Micro 12/31/24 15:15 Results Medical Decision Narrative: In summary patient is a 74-year-old male who presents to the emergency department for evaluation of atraumatic right knee pain. Patient is hemodynamically stable upon arrival, afebrile. Physical exam reveals a swollen appearing but nonred right knee. He does have reduced range of motion passively due to pain. He also appears to have ecchymosis inferiorly alongside the tibial tuberosity but there is no visible evidence of trauma. He does have palpable peripheral pulses and is neurovascular intact distally.. Differential diagnosis includes osteoarthritis versus joint effusion versus possible septic joint etc. Initial workup will be conducted with plain film x-rays POCUS hematologic labs. Initial interventions include Tylenol and ibuprofen for now. Initial workup reviewed by me and patient does have bicompartmental osteoarthritis via my informal interpretation and POCUS shows that he does have a moderate to small effusion. Given this Dr. Hernández performed a joint tap that was not normal synovial fluid and had an interactive discussion with the patient regarding recommendations which is wait for cell count and joint fluid analysis patient agreed to stay. Dr. Hernández had interactive discussion with the patient regarding the risks and benefits of remaining in the emergency department while we await the joint analysis. The patient directed decision making and discharge patient would rather not stay. He was given the risks benefits of going home. The plan will be that he will call back around 9 PM to follow-up on the test results as well as I will actively continue to monitor. I will addend this note when the results are back. This is Dr. Hernández working with [facility]. Patient has significant right knee swelling and pain. No significant erythema or warmth or fever. However he has a known history of tricompartmental osteoarthritis which is evident on his x-ray with that I personally interpreted. There is a small effusion noted on that however on bedside ultrasound which I performed there is a localize drainable fluid collection suprapatellar region just deep to the quadriceps tendon. This was tapped by myself. Please see arthrocentesis note. It was turbid fluid therefore I advised that the patient stay for final results. ESR and CRP were significant elevated as well. Cannot rule out a septic joint at this point. Dr. Ferrera will be the attending physician who will take over decision making from the standpoint but Don will also remain on this case. Patient is aware this was placed in ED observation. <Pretty Hernández MD - Last Filed: 01/03/25 15:22> Vital Signs: 12/31/24 10:42 12/31/24 13:01 12/31/24 14:00 Temperature 98.3 F Temperature Source Oral Pulse Rate 106 H Pulse Rate [Left Radial] 70 Respiratory Rate 20 Blood Pressure 107/77 L 97/67 L Blood Pressure [Right Arm] 135/80 Blood Pressure Mean 89 77 Blood Pressure Mean [Right Arm] 98 02 Sat by Pulse Oximetry 100 98 Oxygen Delivery Method Room Air 12/31/24 16:00 Temperature 98.2 F Temperature Source Pulse Rate 90 Pulse Rate [Left Radial] Respiratory Rate 20 Blood Pressure 140/80 Blood Pressure [Right Arm] Blood Pressure Mean Blood Pressure Mean [Right Arm] 02 Sat by Pulse Oximetry Oxygen Delivery Method Room Air Lab Data Lab Results 12/31/24 14:25: WBC 6.8, RBC 4.09 L, Hgb 13.4 L, Hct 40.5 L, MCV 99.0 H, MCH 32.8 H, MCHC 33.1, RDW 15.1, Plt Count 167, MPV 9.5, Neut % (Auto) 83.0 H, Lymph % (Auto) 6.9 L, [place] % (Auto) 8.1, Eos % (Auto) 0.7, Baso % (Auto) 0.4, Neut # (Auto) 5.7, Lymph # (Auto) 0.5 L, [place] # (Auto) 0.6, Eos # (Auto) 0.1, Baso # (Auto) 0.0, ESR 70 H, Sodium 136, Potassium 4.1, Chloride 96 L, Carbon Dioxide 34 H, Anion Gap 10.1, BUN 25 H, Creatinine 1.00, Estimated Creat Clear 84, Estimated GFR 73, Est GFR ( Amer) 88, Glucose 143 H, Calcium 9.7, Total Bilirubin 1.0, AST 27, ALT 24, Alkaline Phosphatase 94, C-Reactive Protein 88.2 H, Total Protein 7.0, Albumin 4.4, Globulin 2.6, Albumin/Globulin Ratio 1.7 12/31/24 : Synovial Crystals See comment 01/01/25 : Fluid Clarity Cloudy, Synovial Color Yellow, Synovial RBC 5,000, Synovial Tot Nuc Cell 44,000, Synovial Eosinophils% 0, Synovial Polynuclear % 41,800, Synovial Lymphocytes % 1, Synovial Macrophages % 1,760, Synovial Fluid Comment Orders (Tests/Meds): ED MEDICATIONS Discontinued Medications Generic Name Dose Route Start Last Admin Trade Name Juan Luisq PRN Reason Stop Dose Admin Acetaminophen 1,000 mg 12/31/24 13:27 12/31/24 13:32 Acetaminophen 500mg Tab PO 12/31/24 13:28 1,000 mg ONCE ONE Administration ORDERS Category Date Time Status Knee XR right 3 views [XR knee RT 3V] Stat Exams 12/31/24 11:10 Completed POCUS Point of Care (ER Only) Stat Exams 12/31/24 13:19 Completed CBC w/Auto Diff [Complete Blood Count Auto Diff] Stat Lab 12/31/24 14:25 Completed CMP [Comprehensive Metabolic Panel] Stat Lab 12/31/24 14:25 Completed CRP [C-Reactive Protein] Stat Lab 12/31/24 14:[address] Synovial w/o Crystals Stat Lab 01/01/25 Completed ESR [Erythrocyte Sedimentation Rate] Stat Lab 12/31/24 14:25 Completed Body Fluid Cult & Gram Stain Stat Micro 12/31/24 15:15 Results Medical Decision Narrative: In summary patient is a 74-year-old male who presents to the emergency department for evaluation of atraumatic right knee pain. Patient is hemodynamically stable upon arrival, afebrile. Physical exam reveals a swollen appearing but nonred right knee. He does have reduced range of motion passively due to pain. He also appears to have ecchymosis inferiorly alongside the tibial tuberosity but there is no visible evidence of trauma. He does have palpable peripheral pulses and is neurovascular intact distally.. Differential diagnosis includes osteoarthritis versus joint effusion versus possible septic joint etc. Initial workup will be conducted with plain film x-rays POCUS hematologic labs. Initial interventions include Tylenol and ibuprofen for now. Initial workup reviewed by me and patient does have bicompartmental osteoarthritis via my informal interpretation and POCUS shows that he does have a moderate to small effusion. Given this Dr. Hernández performed a joint tap that was not normal synovial fluid and had an interactive discussion with the patient regarding recommendations which is wait for cell count and joint fluid analysis patient agreed to stay. Given this the patient was placed in observation status at 1517. Medical necessity for observational status is awaiting joint fluid analysis. The patient was provided serial reevaluations while awaiting results. [Results of testing during observation remarkable for:]. [Because of these results I feel the patient can be discharged with follow-up with her PCP versus I feel the patient requires admission due to]. Total time in observation was [total time]. This is Dr. Hernández working with Constantine. Patient has significant right knee swelling and pain. No significant erythema or warmth or fever. However he has a known history of tricompartmental osteoarthritis which is evident on his x-ray with that I personally interpreted. There is a small effusion noted on that however on bedside ultrasound which I performed there is a localize drainable fluid collection suprapatellar region just deep to the quadriceps tendon. This was tapped by myself. Please see arthrocentesis note. It was turbid fluid therefore I advised that the patient stay for final results. ESR and CRP were significant elevated as well. Cannot rule out a septic joint at this point. Dr. Ferrera will be the attending physician who will take over decision making from the standpoint but Don will also remain on this case. Patient is aware this was placed in ED observation. Reassessment 331 patient does not want to stay and wait for his arthrocentesis labs therefore Don will follow-up on patient's test results also patient's been informed that if he has not heard from us by 9:00 tonight to call back and we will look up the results also discussed with the charge nurse to also try to keep an eye on results tonight. He understands there is some air that could be introduced here as this is not normal process and is aware this. He is aware that there is significant morbidity and mortality that could occur if this is in fact a septic joint that is not intervened upon. Patient is adamant that he will follow-up when he test results. Diagnostic uncertainty remains patient was discharged. Procedures <Pretty Hernández MD - Last Filed: 01/03/25 15:22> Joint Aspiration/Injection Joint Asp./Inject. 1: Time Out Performed: Yes Side of body: right Joint Aspirated: knee Ultrasound Guidance: Yes Skin Prep: Chlorhexidine Local Anesthetic: lidocaine 1% and with epi Amount of anesthesia used (mL): 5 Needle Size Used: 18G Fluid Obtained: turbid Total fluid obtained (mL): 11 Patient Tolerated Procedure: well Complications: none Miscellaneous Procedure Procedure Performed: Limited soft tissue ultrasound Indication: Knee pain and swelling Identified structures: Location: Right knee Findings: There is a localized fluid collection in the super suprapatellar region deep to the quadriceps tendon Impression: Nonspecific suprapatellar effusion Images were saved to permanent archive The study was technically adequate Soft Tissue CPT Codes: CPT Neck: 88105-98 CPT Upper extremity: 11404-54 CPT Axilla: 60518-83 CPT Chest wall: 18549-35 CPT Breast: 21581-42-SG/LT (complete), 44931-43-ZA/LT (limited), CPT Upper Back: 45147-44 CPT Lower Back: 93572-65 CPT Abdominal Wall: 83165-16 CPT Pelvic Wall: 96402-80 CPT Lower Extremity: 85182-23 CPT Other Soft Tissue: 55286-81 This study was performed by me, and I personally interpreted all images/videos. Based on my clinical judgement, these images were adequate and did not necessitate further imaging. Critical Care <Pretty Hernández MD - Last Filed: 01/03/25 15:22> Critical Care Time Critical Care Time: No
--- NOTE | 2024-12-31 13:15 | PC.NURSE ---
DR KNOX AT BEDSIDE
[2024-12-31] MEDS: ACETAMINOPHEN 500MG TAB 1000 MG PO (13:32)
--- NOTE | 2024-12-31 13:39 | PC.NURSE ---
Pt given urinal, pt used and taken and disposed
[2024-12-31 14:00] VITALS: BP 97/67
[2024-12-31 14:36] LABS: Basophils % 0.4 % (0.1-2.0); Eosinophils # 0.1 K/mm3 (0.0-0.4); Eosinophils % 0.7 % (0.1-12.0); Hematocrit 40.5 % (42.0-52.0); Hemoglobin 13.4 g/dL (14.1-18.0); Lymphocytes # 0.5 K/mm3 (0.7-4.5); Lymphocytes % 6.9 % (10-50); Mean Corpuscular HGB Conc 33.1 g/dL (31.8-35.4); Mean Corpuscular Hemoglobin 32.8 pg (27.0-31.2); Mean Platelet Volume 9.5 fl (7.4-10.4); Monocytes # 0.6 K/mm3 (0.1-1.0); Monocytes % 8.1 % (1.7-9.3); Neutrophils # 5.7 K/mm3 (1.8-7.8); Platelet Count 167 K/mm3 (142-424); Red Blood Count 4.09 M/mm3 (4.60-6.20); Red Cell Distribution Width 15.1 % (11.5-17.5); White Blood Count 6.8 K/mm3 (4.8-10.8)
[2024-12-31 14:49] LABS: Albumin Level 4.4 g/dl (3.5-5.0); Chloride 96 mmol/L (98-107); Potassium 4.1 mmoL/L (3.5-5.1); Sodium 136 mmol/L (136-145)
[2024-12-31 14:51] LABS: Blood Urea Nitrogen 25 mg/dl (9-20); Creatinine Clearance Estimated 84 mL/min (50-200); Estimated Glomerular Filt Rate 73 ml/min (>60); GFR (African American) 88 ML/MIN (>60)
[2024-12-31 14:52] LABS: Alanine Aminotransferase 24 U/L (12-78); Albumin/Globulin Ratio 1.7 (1.1-1.8); Alkaline Phosphatase 94 U/L (38-126); Anion Gap 10.1 mEq/L (5-15); Aspartate Amino Transferase 27 U/L (17-59); Calcium 9.7 mg/dl (8.4-10.2); Carbon Dioxide 34 mmol/L (22.0-30.0); Globulin 2.6 g/dL (1.3-3.2); Glucose 143 mg/dl (74-100)
[2024-12-31 14:57] LABS: C-Reactive Protein 88.2 mg/L (0-4)
--- NOTE | 2024-12-31 15:15 | PC.NURSE ---
Dr Hernández at bedside for procedure
[2024-12-31 15:16] LABS: Erythrocyte Sedimentation Rate 70 mm/hr (0-20)
[2024-12-31 16:00] VITALS: BP 140/80; PULSE 90; RESP 20; TEMP 36.8; O2SAT 98
--- NOTE | 2025-01-01 07:28 | P.EN_ITS ---
I contacted patient this AM to update him on results of his [place] centesis. Patient has cloudy fluid with 44,000 nucleated white cells and 42,000 neutrophils. Calcium pyrophosphate crystals. On Gram stain there are gram- positive cocci in pairs. Review and independent interpretation patient's labs yesterday with elevated white count and inflammatory markers, notably ESR 70, CRP nearly 90. Given constellation of symptoms and patient stating he can no longer bear weight on the knee given significant pain, I called the orthopedist on-call, Dr. De Souza who recommended return to the emergency department and admission for washout. This was relayed to patient who stated he will be here soon as he possibly can. MD Aniceto
[2025-01-01 13:02] LABS: Clarity,Fluid CLOUDY; Color,Fluid YELLOW
[2025-01-01 13:03] LABS: Lymphocytes,Fluid 1
[2025-01-01 13:04] LABS: Eosinophils,Fluid 0
== END 2024-12-31 16:01 | disposition home or self-care (01) ==
PROVIDERS: Physician Assistant; Emergency Provider Student in an Organized Health Care Education/Training Program; PCP Family Medicine
DX: M25.461 Effusion, right knee (principal); M25.561 Pain in right knee; M17.0 Bilateral primary osteoarthritis of knee
CPT/HCPCS: 73562; 80053; 85025; 85651; 86140; 87070; 87186; 87205; 89051; 89060; 99284

== ENCOUNTER 2025-01-01 08:22 | Inpatient (IN) | payer MEDICARE, BC, SELFPAY ==
[2025-01-01] VITALS (23 sets, daily range): BP systolic 99–165; BP diastolic 59–106; PULSE 51–112; RESP 16–20; TEMP 36.4–43; O2SAT 94–100; BMI 27.5; BMI 26.9
--- NOTE | 2025-01-01 08:38 | ED_ITS ---
Discharge Plan Disposition Patient Disposition: Admitted Chief Complaint: Extremity Problem,Nontraumatic Clinical Impressions Clinical Impression: Septic arthritis, Pseudogout Discharge ED Provider: Shawn Moreland General Adult HPI General Chief complaint: Extremity Problem,Nontraumatic Stated complaint: Right knee pain/non-weight bareing Time Seen by Provider: 01/01/25 08:25 History of Present Illness HPI narrative: Please note that above description of symptoms, in this electronic medical record under categorization of recalled from ER triage doctor by RN are reflective of an initial nursing assessment, however, is not reflective of my full history and physical exam that was personally taken and clarified. Consequentially, this preceding description of symptoms, which may include the patient's categorized chief complaint in the EMR, do not reflect my personal clinical impression, and the ultimate description of history of present illness and patient stated complaints should be deferred to this section of the note. Unless stated otherwise or congruent with this section of the note, additional signs, symptoms, or incongruence should be interpreted as inaccurate with my clinical impression. Related Data Home Medications ?Medication ?Instructions ?Recorded ?Confirmed atorvastatin 40 mg tablet 40 mg PO HS Cholesterol 12/20/17 01/01/25 tamsulosin 0.4 mg capsule 0.4 mg PO DAILY prostate 07/03/19 01/01/25 bisoprolol fumarate 5 mg tablet 5 mg PO DAILY bp 01/08/21 01/01/25 omeprazole 40 mg capsule,delayed 40 mg PO DAILY GERD 02/16/21 01/01/25 release levothyroxine 75 mcg tablet 75 mcg PO DAILY thyroid supplement 12/16/22 01/01/25 empagliflozin 10 mg tablet 10 mg PO DAILY Diabetes 01/21/23 01/01/25 (Jardiance) pregabalin 50 mg capsule 50 mg PO TID 01/10/24 01/01/25 aspirin 81 mg chewable tablet 81 mg PO DAILY 03/16/24 01/01/25 lenalidomide 20 mg capsule 20 mg PO DAILY 04/17/24 01/01/25 hydrochlorothiazide 25 mg tablet 25 mg PO DAILY 05/16/24 01/01/25 amitriptyline 25 mg tablet 25 mg PO DAILY 12/18/24 01/01/25 dexamethasone 1.5 mg (51 tabs) 4 mg PO DAILY 01/01/25 01/01/25 tablets in a dose pack Previous Rx's ?Medication ?Instructions ?Recorded rivaroxaban 20 mg tablet (Xarelto) 20 mg PO DAILY #30 tabs 10/17/24 acyclovir 800 mg tablet See Rx Instructions .Route 11/26/24 .COMPLEX #60 tabs Allergies Allergy/AdvReac Type Severity Reaction Status Date / Time No Known Allergies Allergy Verified 12/18/24 09:40 [facility] Disclaimer: The information contained in this section may have been updated after the patient was seen, as this information can be updated by other users. Medical History Abnormal ankle brachial index (SARAY) Parkinson disease DM2 (diabetes mellitus, type 2) Chest pain CAD (coronary artery disease) Cardiomyopathy Bilateral leg pain PAD (peripheral artery disease) MIO (obstructive sleep apnea) Hyperlipidemia Hypertensive heart disease without heart failure Neuropathy Surgical History History of colonoscopy History of heart bypass surgery Family History Other No significant family history Social History Smoking Status: Never smoker alcohol intake: never substance use type: denies use current occupational status: retired Travel in the last 8 weeks: Inside the [place] household members: spouse housing: house 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: Yes Have you lived/traveled outside US in past 30 days?: No Contact w/someone who lives/traveled outside US past 30 days?: No Exposure to someone with infectious disease in past 14 days?: No Do you have a fever (greater than 100.4 F or 38 C)?: No Have you tested positive for COVID-19: No Exposed to someone with COVID-19 in past 14 days?: No Do you have a sore throat?: No Do you have a cough?: No Do you have any weakness?: No Do you have any diarrhea?: No Are you experiencing any unusual bleeding?: No Do you have any muscle aches/pain?: No Do you have any abdominal pain?: No Are you experiencing loss of taste or smell?: No Other Medical History Have you received the Flu Vaccine for this season: No Have you received the Pneumonia Vaccine: No ROS Obtained: Yes All systems reviewed & no additional complaints except as documented Physical Exam General General appearance: alert Head Head exam: atraumatic and normocephalic Eye Eye exam: Present normal appearance, PERRL and EOMI Neck Neck exam: Present normal inspection, full ROM and trachea midline Respiratory Respiratory exam: Absent respiratory distress, wheezes, stridor, accessory muscle use or prolonged expiratory phase Cardiovascular Cardiovascular exam: Present other (Pulses equal symmetric in upper and lower extremities) Abdominal Exam Abdominal exam: Present soft; Absent distention, tenderness or pulsatile mass Extremities Exam Extremities exam: Present tenderness, edema and other (Significant tenderness, swelling, mild erythema to the right knee. Most tender in joint space medially and laterally. Structurally intact, neurovascularly intact, range of motion limited secondary to pain.) Neurological Exam Neurological exam: Present alert, oriented X3 and CN II-XII intact; Absent motor sensory deficit Skin Skin exam: Present warm and dry; Absent diaphoresis or erythema Medical Decision Making Medical Records Medical records reviewed: Yes I reviewed the patient's medical records. Screening: Per USPSTF and CDC recommendations, given the prevalence of disease in our [facility], it is our hospital?s policy to screen for HIV and viral Hepatitis for all patients aged 18 and over and those with ongoing risk factors. Ruddy Inquiry Pt receiving controlled substance: No Ruddy was queried for this patient: No Vital Signs: 01/01/25 08:23 Temperature 98.6 F Temperature Source Oral Pulse Rate [Right] 112 H Respiratory Rate 20 Blood Pressure [Right Arm] 139/84 Blood Pressure Mean [Right Arm] 102 02 Sat by Pulse Oximetry 98 Oxygen Delivery Method Room Air Orders (Tests/Meds): ED MEDICATIONS Generic Name Dose Route Start Last Admin Trade Name Freq PRN Reason Stop Dose Admin Vancomycin/PEG/NADA/Lysine/Water 1.75 gm in 350 mls @ 175 mls/hr 01/01/25 08:45 01/01/25 09:28 Vancomycin 1.75gm/350ml (Peg) Premix IV 01/01/25 10:44 175 mls/hr ONCE ONE Administration Discontinued Medications Generic Name Dose Route Start Last Admin Trade Name Freq PRN Reason Stop Dose Admin Lactated Ringer's 1,000 mls @ 999 mls/hr 01/01/25 08:29 01/01/25 08:53 Lactated Ringer's 1000 Ml Bag IV 01/01/25 09:29 999 mls/hr .Q1H1M ONE Administration Ketorolac Tromethamine 15 mg 01/01/25 08:29 01/01/25 08:53 Ketorolac 30mg/Ml Vial IV 01/01/25 08:30 15 mg ONCE ONE Administration Miscellaneous 1 each 01/01/25 08:30 Vancomycin Consult Request NOTAPPLIC 01/31/25 08:29 CONSULT PHARMACY ANNEL ORDERS Category Date Time Status Blood Culture Stat Micro 01/01/25 08:58 Received Medical Decision Narrative: This is a 74-year-old male history of hypertension A-fib on Xarelto, type 2 diabetes, CAD, PAD, presenting with right knee pain. Patient was seen in the emergency department yesterday and labs were drawn, synovial fluid was also obtained. States that he is had pain in his right knee before, has been receiving injections in his right knee for the pain last injection was about a month ago. Labs were sent to [facility]. Patient opted to leave and come back after receiving a call however labs never crossed over to [facility] system. Patient called back today and asking for results. I independently reviewed and interpreted patient's results from [facility] on outside hospital chart review. Patient has 42,000 neutrophils, calcium pyroph osphate crystals, cloudy yellow fluid, gram-positive cocci in clusters on initial Gram stain. There is recommended the patient come back. Patient presents for this. I also contacted orthopedics to let them know that he would be on his way and they were agreeable to this plan.. History was obtained via conversation with patient, outside hospital chart review, previous provider. On arrival, patient hemodynamically stable, alert, oriented x4, appropriate, GCS 15, moving all extremities spontaneously, pupils equal and reactive to light. Full physical exam performed and significant for very clinically well-appearing male no acute distress. His right knee is red, swollen, tender. Structurally intact, range of motion is limited significantly secondary to pain. Neurovascularly intact right lower extremity with the exception of subjective sensation loss from patient's known neuropathy.. Differential includes septic joint, inflammatory arthropathy, crystal apathy, fracture, among others. Because patient received labs yesterday, I did not feel that full panel of labs was necessary today as well. On independent interpretation, patient had normal white blood cell count with relative neutrophilia. Patient's ESR was elevated at 70, CRP elevated nearly 90. Patient's chemistry otherwise nonactionable. On independent interpretation of x-ray, patient had small joint effusion, no obvio us acute bony abnormality with moderate osteoarthritic change and obvious PAD. Blood cultures were drawn as these were not drawn yesterday and vancomycin was started. I contacted patient's primary care physician group for admission, graciously accepted for admission Video Rental Clerk disclaimer Much of this encounter note is an electronic editorial clerk spoken language to printed text. Electronic editorial clerk of the spoken language may permit errors. Although I have reviewed the note, some errors may still exist. Critical Care Critical Care Time Critical Care Time: No
[2025-01-01] MEDS: KETOROLAC 30MG/ML VIAL 15 MG IV (08:53)
[2025-01-01] MEDS: LACTATED RINGERS 1000ML 1,000 ML 999 ML IV (08:53)
--- NOTE | 2025-01-01 09:24 | PC.NURSE ---
DR FUENTES NOTIFIED OF PT, WILL ADMIT PT FOR SURGERY
--- NOTE | 2025-01-01 09:25 | PC.NURSE ---
PSYCHOMETRICIAN NOTIFIED OF ADMISSION
[2025-01-01] MEDS: VANCOMYCIN/WATER FOR INJ (PEG) 1.75 GM/350 ML PIGGYBACK IV (09:28)
--- NOTE | 2025-01-01 09:58 | PC.NURSE ---
report called to Vinicius DIEHL
--- NOTE | 2025-01-01 10:46 | HMH.PHAINT1 ---
Pharmacy Intervention Comments: MEDICATION RECONCILIATION COMPLETE USING EXTERNAL PHARMACY FILL HISTORY, ERLINDA REPORT, AND RECENT ONCOLOGY OFFICE VISIT NOTE.
--- NOTE | 2025-01-01 11:02 | PC.NURSE ---
arrived by stretcher from ED
--- NOTE | 2025-01-01 11:30 | P.CONS_ITS ---
History of Present Illness *Admission Date: 01/01/25 *Reason for visit:: Right knee *History of present illness: 74-year-old male who presents to the hospital for treatment of right knee effusion. He had insidious onset of worsening knee pain over the weekend. Then became so severe he was unable to walk. He had aspiration performed in the emergency room that fluid was sent to [facility] for analysis is following cell count microscopic evaluation for crystals and Gram stain. He left yesterday but then presented back to the emergency room today with worsening pain and swelling in the knee. His white count the knee was 44,000 microscopic positive for calcium pyrophosphate crystals however Gram stain was few positive gram-positive cocci. He was admitted to the hospital with pulmonary diagnosis septic arthritis in the knee Ortho consulted for definitive treatment options. [facility] Disclaimer: The information contained in this section may have been updated after the patient was seen, as this information can be updated by other users. Medical History Abnormal ankle brachial index (SARAY) Parkinson disease DM2 (diabetes mellitus, type 2) Chest pain CAD (coronary artery disease) Cardiomyopathy Bilateral leg pain PAD (peripheral artery disease) MIO (obstructive sleep apnea) Hyperlipidemia Hypertensive heart disease without heart failure Neuropathy Surgical History History of colonoscopy History of heart bypass surgery Family History Other No significant family history Social History Smoking Status: Never smoker alcohol intake: never substance use type: denies use current occupational status: retired Travel in the last 8 weeks: [place] the [place] household members: spouse housing: house 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: Yes Have you lived/traveled outside [place] in past 30 days?: No Contact w/someone who lives/traveled outside US past 30 days?: No Exposure to someone with infectious disease in past 14 days?: No Do you have a fever (greater than 100.4 F or 38 C)?: No Have you tested positive for COVID-19: No Exposed to someone with COVID-19 in past 14 days?: No Do you have a sore throat?: No Do you have a cough?: No Do you have any weakness?: No Do you have any diarrhea?: No Are you experiencing any unusual bleeding?: No Do you have any muscle aches/pain?: No Do you have any abdominal pain?: No Are you experiencing loss of taste or smell?: No Meds Home Medications and Allergies Home Medications ?Medication ?Instructions ?Recorded ?Confirmed ?Type atorvastatin 40 mg tablet 40 mg PO HS 12/20/17 01/01/25 History tamsulosin 0.4 mg capsule 0.4 mg PO DAILY 07/03/19 01/01/25 History bisoprolol fumarate 5 mg tablet 5 mg PO DAILY 01/08/21 01/01/25 History omeprazole 40 mg capsule,delayed 40 mg PO DAILY 02/16/21 01/01/25 History release levothyroxine 75 mcg tablet 75 mcg PO DAILYDM 12/16/22 01/01/25 History empagliflozin 10 mg tablet 10 mg PO DAILY 01/21/23 01/01/25 History (Jardiance) pregabalin 50 mg capsule 50 mg PO BID 01/10/24 01/01/25 History aspirin 81 mg chewable tablet 81 mg PO DAILY 03/16/24 01/01/25 History hydrochlorothiazide 25 mg tablet 25 mg PO DAILY 05/16/24 01/01/25 History amitriptyline 25 mg tablet 100 mg PO HS 12/18/24 01/01/25 History acyclovir 800 mg tablet 800 mg PO BID 01/01/25 01/01/25 History dexamethasone 4 mg tablet 20 mg PO WEEKLY 01/01/25 01/01/25 History losartan 100 mg tablet 100 mg PO DAILY 01/01/25 01/01/25 History potassium chloride 20 mEq 20 meq PO DAILY 01/01/25 01/01/25 History tablet,extended release(part/cryst) rivaroxaban 20 mg tablet (Xarelto) 20 mg PO QPMWITHMEAL 01/01/25 01/01/25 History New Prescriptions to Start Prescriptions: Allergies Allergy/AdvReac Type Severity Reaction Status Date / Time No Known Allergies Allergy Verified 12/18/24 09:40 Ortho Exam (Inpt) Vital signs and Labs for Last 24 Hours: Temp Pulse Resp BP Pulse Ox O2 Del Method 98.6 F 86 18 105/64 L 97 Room Air 01/01/25 11:16 01/01/25 11:16 01/01/25 11:16 01/01/25 11:16 01/01/25 11:16 01/01/25 11:16 I & O for Labs for Last 24 Hours: Intake & Output 12/29/24 12/30/24 12/31/24 01/01/25 23:59 23:59 23:59 23:59 Weight 198 lb 6 oz Comment:: Right knee: Skins intact. There is a large effusion in the knee. No active drainage no streaking redness he is irritable with range of motion of the knee with pain in the anterior aspect the knee and medial joint line. Results Labs Labs: All other labs normal. Assessment and Plan *Assessment and plan (1) Septic arthritis: Problem Comment: Right knee Status: Acute Qualifiers: Laterality: right Septic arthritis location: knee Septic arthritis organism: staphylococcal Qualified Code(s): M00.061 - Staphylococcal arthritis, right knee Category: Medical Code(s): M00.9 - Pyogenic arthritis, unspecified Plan Had a discussion with the patient regarding treatment options. Given the borderline high white count even in spite of the presence of calcium pyrophosphate crystals with a positive Gram stain with few gram-positive cocci he is indicated for arthroscopic debridement irrigation of the knee for septic arthritis. We will arrange for the surgery today take interoperative cultures as well. Follow the final cultures from the initial evaluation for antibiotic c hoice and duration. PROPOSED SURGERY: Right knee arthroscopic irrigation and debridement The risks and benefits of the proposed surgery were discussed in depth with the patient. Potential complications including inherent risk of anesthesia, infection, neurovascular damage, DVT, and rare but real potential loss of limb or life were all reviewed. Patient voices understanding and seems to understand to my satisfaction and wishes to proceed with surgery. I gave them adequate time to ask any questions they have pertaining to this surgery and answered all of them to the best of my ability. I gave them no guarantees in regards to outcomes of this surgery.
[2025-01-01 12:21] LABS: POC Glucose,Bedside 150 (70-110)
[2025-01-01] MEDS: BUPIVACAINE 0.5% 30ML VIAL 150 MG (13:25)
--- NOTE | 2025-01-01 13:47 | EXP.ANES.CKL ---
[facility] Disclaimer: The information contained in this section may have been updated after the patient was seen, as this information can be updated by other users. Medical History (Updated 01/01/25 @ 12:38 by Amanda Cuellar RN) GERD (gastroesophageal reflux disease) Hypothyroid Multiple myeloma Abnormal ankle brachial index (SARAY) Parkinson disease DM2 (diabetes mellitus, type 2) Chest pain CAD (coronary artery disease) Cardiomyopathy Bilateral leg pain PAD (peripheral artery disease) MIO (obstructive sleep apnea) Hyperlipidemia Hypertensive heart disease without heart failure Neuropathy Surgical History (Updated 01/01/25 @ 12:38 by Amanda Cuellar RN) AICD (automatic cardioverter/defibrillator) present History of colonoscopy History of heart bypass surgery Family History Other No significant family history Social History (Updated 01/01/25 @ 12:38 by Amanda Cuellar RN) Smoking Status: Never smoker alcohol intake: never substance use type: denies use current occupational status: retired Travel in the last 8 weeks: [place] the [place] household members: spouse housing: house 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: Yes Have you lived/traveled outside [place] in past 30 days?: No Contact w/someone who lives/traveled outside US past 30 days?: No Exposure to someone with infectious disease in past 14 days?: No Do you have a fever (greater than 100.4 F or 38 C)?: No Have you tested positive for COVID-19: No Exposed to someone with COVID-19 in past 14 days?: No Do you have a sore throat?: No Do you have a cough?: No Do you have any weakness?: No Are you experiencing any nausea/vomitting?: No Do you have any diarrhea?: No Are you experiencing any unusual bleeding?: No Do you have any muscle aches/pain?: No Do you have any abdominal pain?: No Are you experiencing loss of taste or smell?: No [facility] Anesthesia Checklist Patient Identification Patient Identification: Arm Band Structural Data Admitted From: Inpatient Planned Operative Procedure/s: Right Knee Arthroscopic Irrigation and Debridement Consent for Planned Operative Procedure(s) Verified: Yes Verified Documents: Surgical Consent and History and Physical NPO Status Verified Time NPO: 06:30 Additional verifications Anesthesia Reactions: No Airway Assessment Mallampati Score:: Class II C-Spine Mobility Assessed: Yes TMJ Mobility Assessed: Yes Dentition: Good Dentition Neurological Assessment Level of Consciousness: Awake, Alert and Appropriate Anesthesia Plan Anesthesia Risk discussed: Yes Anesthesia Plan: Verified ASA Class: III Anesthesia Type: General
--- NOTE | 2025-01-01 13:48 | EXP.ANES.I ---
[facility] Anesthesia Record Part I Anesthesia Record I Intake, IV Amount: 600 Hydration: Adequate Estimated blood loss (mL): 5 Urine output (mL): 0 Blood Products used (#): none Blood Pressure: 125/75 SaO2: 96 Pulse Rate: 98 Airway Patency: Patent Respiratory Rate: 16 Temperature: 98.1 F Patient is:: Drowsy and Stable Stable to PACU at:: 13:40
[2025-01-01 14:11] LABS: POC Glucose,Bedside 148 (70-110)
--- NOTE | 2025-01-01 14:46 | P.HP_ITS ---
History of Present Illness *Admission Date: 01/01/25 *History of present illness: 74-year-old male who presents to the hospital for treatment of right knee effusion. He had insidious onset of worsening knee pain over the weekend. Then became so severe he was unable to walk. He had aspiration performed in the e mergency room that fluid was sent to [facility] for analysis is following cell count microscopic evaluation for crystals and Gram stain. He left yesterday but then presented back to the emergency room today with worsening pain and swelling in the knee. His white count the knee was 44,000 microscopic positive for calcium pyrophosphate crystals however Gram stain was few positive gram-positive cocci. He was admitted to the hospital with diagnosis septic arthritis in the knee Ortho consulted for definitive treatment options. The above per ER physician. Patient has a history of hypertension, ASCVD with coronary stents and open heart surgery, hyperlipidemia, hearing aids, atrial fibs converted, peripheral neuropathy, MGUS monoclonal gammopathy of undetermined significance and multiple myeloma followed by Dr. Rapp., Elevated PSA. Patient describes having right knee issues for about a week. 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 For the last 2 to 3 days then he has been more swollen and red with ambulation becoming progressively difficult. He had to have assistance in getting into the car to come to the hospital. Patient denies having any fever but just has not felt well the last 2 to 3 days. He has had a decrease in his eating and drinking. At the time of this exam patient has returned from the recovery room after having right knee arthroscopic irrigation and debridement. He tolerated the procedure well. He currently remains a little bit groggy and sleepy. He does answer all questions very appropriately. [facility] Disclaimer: The information contained in this section may have been updated after the patient was seen, as this information can be updated by other users. Medical History (Updated 01/01/25 @ 14:54 by Geetha Velez APRN) Cataract GERD (gastroesophageal reflux disease) Hypothyroid Multiple myeloma Abnormal ankle brachial index (SARAY) Parkinson disease DM2 (diabetes mellitus, type 2) Chest pain CAD (coronary artery disease) Cardiomyopathy Bilateral leg pain PAD (peripheral artery disease) MIO (obstructive sleep apnea) Hyperlipidemia Hypertensive heart disease without heart failure Neuropathy Surgical History (Updated 01/01/25 @ 14:54 by Geetha Velez APRN) History of cataract surgery Hx of cholecystectomy AICD (automatic cardioverter/defibrillator) present History of colonoscopy History of heart bypass surgery Family History Other No significant family history Social History (Updated 01/01/25 @ 12:38 by Amanda Cuellar RN) Smoking Status: Never smoker alcohol intake: never substance use type: denies use current occupational status: retired Travel in the last 8 weeks: Inside the [place] household members: spouse housing: house 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: Yes Have you lived/traveled outside [place] in past 30 days?: No Contact w/someone who lives/traveled outside US past 30 days?: No Exposure to someone with infectious disease in past 14 days?: No Do you have a fever (greater than 100.4 F or 38 C)?: No Have you tested positive for COVID-19: No Exposed to someone with COVID-19 in past 14 days?: No Do you have a sore throat?: No Do you have a cough?: No Do you have any weakness?: No Are you experiencing any nausea/vomitting?: No Do you have any diarrhea?: No Are you experiencing any unusual bleeding?: No Do you have any muscle aches/pain?: No Do you have any abdominal pain?: No Are you experiencing loss of taste or smell?: No Other Medical History Have you received the Flu Vaccine for this season: No Have you received the Pneumonia Vaccine: Yes Review of Systems Constitutional Constitutional: Denies body ache(s), Denies chills, Denies fever(s), Reports poor appetite and Reports lethargy Eyes Eyes: Denies change in vision ENT Ears, Nose, Mouth, and Throat: Denies otalgia, Reports hearing loss (Wears hearing aids) and Denies sore throat *Cardiovascular Cardiovascular: Denies chest pain, Denies dyspnea, Denies edema and Denies irregular heart rhythm *Respiratory Respiratory: Denies chest congestion, Denies cough and Denies dyspnea *Gastrointestinal Gastrointestinal: Denies heartburn, Denies hematemesis, Denies loose stools, Denies nausea and Denies vomiting *Genitourinary Genitourinary: Denies difficulty urinating *Musculoskeletal Musculoskeletal: Reports abnormal gait (Progressive difficulty with walking due to right knee pain), Reports arthralgias (Right knee) and Reports joint swelling Comments: Edema of the right leg due to knee issues *Neurologic Neurologic: Reports abnormal gait (Progressive difficulty with walking due to right knee pain) and Denies behavioral changes Psychiatric Psychiatric: Denies behavioral changes Meds Home Medications and Allergies Home Medications ?Medication ?Instructions ?Recorded ?Confirmed ?Type atorvastatin 40 mg tablet 40 mg PO HS 12/20/17 01/01/25 History tamsulosin 0.4 mg capsule 0.4 mg PO DAILY 07/03/19 01/01/25 History bisoprolol fumarate 5 mg tablet 5 mg PO DAILY 01/08/21 01/01/25 History omeprazole 40 mg capsule,delayed 40 mg PO DAILY 02/16/21 01/01/25 History release levothyroxine 75 mcg tablet 75 mcg PO DAILYDM 12/16/22 01/01/25 History empagliflozin 10 mg tablet 10 mg PO DAILY 01/21/23 01/01/25 History (Jardiance) pregabalin 50 mg capsule 50 mg PO BID 01/10/24 01/01/25 History aspirin 81 mg chewable tablet 81 mg PO DAILY 03/16/24 01/01/25 History hydrochlorothiazide 25 mg tablet 25 mg PO DAILY 05/16/24 01/01/25 History amitriptyline 25 mg tablet 100 mg PO HS 12/18/24 01/01/25 History acyclovir 800 mg tablet 800 mg PO BID 01/01/25 01/01/25 History dexamethasone 4 mg tablet 20 mg PO WEEKLY 01/01/25 01/01/25 History losartan 100 mg tablet 100 mg PO DAILY 01/01/25 01/01/25 History potassium chloride 20 mEq 20 meq PO DAILY 01/01/25 01/01/25 History tablet,extended release(part/cryst) rivaroxaban 20 mg tablet (Xarelto) 20 mg PO QPMWITHMEAL 01/01/25 01/01/25 History New Prescriptions to Start Prescriptions: Allergies Allergy/AdvReac Type Severity Reaction Status Date / Time No Known Allergies Allergy Verified 12/18/24 09:40 Exam Data for Last 24 hours Vital signs and Labs for Last 24 Hours: Temp Pulse Resp BP Pulse Ox O2 Del Method 97.9 F 101 H 16 130/88 99 Room Air 01/01/25 14:20 01/01/25 14:20 01/01/25 14:20 01/01/25 14:20 01/01/25 14:20 01/01/25 14:28 Laboratory Results - last 24 hr 01/01/25 12:08: POC Glucose 150 H 01/01/25 14:02: POC Glucose 148 H I & O for Last 24 hours: Intake & Output 12/30/24 12/31/24 01/01/25 01/02/25 11:59 11:59 11:59 11:59 Intake Total 600 / 600 Balance 600 / 600 Weight 198 lb 6 oz Constitutional Constitutional: no acute distress Comments: Awake and alert. Sensorium intact *Routine HEENT Exam Head: Present normocephalic and atraumatic Eye: Present PERRL; Absent conjunctival icterus, scleral injection or conjunctivae pink ENT: Present mucous membranes moist and oropharynx clear *Routine Neck Exam Neck: Present supple; Absent carotid bruit, lymphadenopathy or thyromegaly *Routine Respiratory Exam Respiratory: Present CTA bilaterally (A&P) *Routine Cardiovascular Exam Cardiovascular: Present RRR *Routine Abdominal Exam Abdominal: Present soft and normoactive bowel sounds; Absent tenderness or distended *Routine Rectal Exam Rectal:: deferred *Routine Genitalia Exam Genitalia:: deferred *Routine Extremities Exam Extremities: Present edema (Right thigh and right toes. Artur wrap above and below the knee); Absent calf tenderness *Routine Neurological Exam Neurological: Present alert, oriented X3 and normal speech Assessment and Plan *Assessment and plan (1) Septic arthritis: Problem Comment: Right knee Status: Acute Qualifiers: Laterality: right Septic arthritis location: knee Septic arthritis organism: staphylococcal Qualified Code(s): M00.061 - Staphylococcal arthritis, right knee Category: Medical Code(s): M00.9 - Pyogenic arthritis, unspecified (2) Osteoarthritis of knees, bilateral: Status: Acute Category: Medical Code(s): M17.0 - Bilateral primary osteoarthritis of knee (3) Smoldering myeloma: Problem Comment: Currently under treatment with hematology/oncology Dr. Eason Status: Acute Category: Medical Code(s): D47.2 - Monoclonal gammopathy (4) MGUS (monoclonal gammopathy of unknown significance): Status: Acute Category: Medical Code(s): D47.2 - Monoclonal gammopathy (5) History of coronary artery bypass graft: Status: Chronic Category: Surgical Code(s): Z95.1 - Presence of aortocoronary bypass graft (6) CAD (coronary artery disease): Status: Chronic Qualifiers: Associated angina: without angina Coronary Disease-Associated Artery/Lesion type: [place] artery [place] vs. transplanted heart: [place] heart Qualified Code(s): I25.10 - Atherosclerotic heart disease of [place] coronary artery without angina pectoris Category: Medical Code(s): I25.10 - Atherosclerotic heart disease of [place] coronary artery without angina pectoris (7) Cardiomyopathy: Status: Chronic Qualifiers: Cardiomyopathy type: unspecified Qualified Code(s): I42.9 - Cardiomyopathy, unspecified Category: Medical Code(s): I42.9 - Cardiomyopathy, unspecified (8) PAD (peripheral artery disease): Status: Chronic Category: Medical Code(s): I73.9 - Peripheral vascular disease, unspecified (9) MIO (obstructive sleep apnea): Status: Chronic Category: Medical Code(s): G47.33 - Obstructive sleep apnea (adult) (pediatric) (10) DM2 (diabetes mellitus, type 2): Status: Acute Qualifiers: Diabetes mellitus complication detail: with polyneuropathy Diabetes mellitus complication status: with neurologic complications Diabetes mellitus assisted insulin use: without medical terminologist use Qualified Code(s): E11.42 - Type 2 diabetes mellitus with diabetic polyneuropathy Category: Medical Code(s): E11.9 - Type 2 diabetes mellitus without complications Plan As per Dr. De Souza: Plan Had a discussion with the patient regarding treatment options. Given the borderline high white count even in spite of the presence of calcium pyrophosphate crystals with a positive Gram stain with few gram-positive cocci he is indicated for arthroscopic debridement irrigation of the knee for septic arthritis. We will arrange for the surgery today take interoperative cultures as well. Follow the final cultures from the initial evaluation for antibiotic choice and duration. Patient was given a dose of vancomycin and is on Cefazolin. Will start some of home meds as per orders. Dr. Tam entry - Saw patient, agree with above note.
--- NOTE | 2025-01-01 15:00 | PC.NURSE ---
. here to see patient and made aware pt doesn't having a code status.
[2025-01-01 16:10] LABS: POC Glucose,Bedside 138 (70-110)
[2025-01-01] MEDS: RIVAROXABAN 10MG TABLET 20 MG PO (16:40)
--- NOTE | 2025-01-01 17:32 | EXP.OP.NOTE ---
Date of procedure: 01/01/25 Pre-op Diagnosis:: Septic arthritis right knee Post-op Diagnosis:: Same Procedure performed:: Right knee arthroscopic irrigation and debridement for septic arthritis Surgeon:: Primo De Souza DO FILE CONVERSION OPERATOR:: Félix Mercado Anesthesia: GETA Estimated blood loss (mL): 0 Clinical Note:: 74-year-old male with noted history of pseudogout and had previous steroid injection but had significant decompensation in regards to swelling and knee pain. Aspiration of the knee resulted in a positive Gram stain and borderline level of white blood cells he was admitted to the hospital orthopedics was consulted regarding treatment options for septic right knee. Operative findings:: Abnormal synovial fluid with infection. Operative note:: Patient identified preoperatively. Right knee marked with yes my initials. Transferred operative suite placed upon operating bed. General anesthesia was administered and airway secured. Right lower extremity was then prepped and draped within the knee thomson. Once prepped and draped final operative timeout performed to identify proper patient procedure and extremity. Everyone involved the case agreed. There is no counter indications to beginning. He did receive preoperative antibiotics. Marking pen was used to rufus bony landmarks of the knee and standard portal sites. Esmarch was not utilized but pneumatic tourniquet was inflated to 300 mmHg. Skin knife was used to incise through anterior lateral portal blunt with trocar was placed in the patellofemoral joint there was return of abnormal appearing synovial fluid with a darkish tinge consistent with infection. This was cultured directly from the knee 3 times. Cameras then placed swimming to the medial joint line where the anterior medial portal was made and exchanged with a sucker shaver then debrided the tissue in the patellofemoral joint and the anterior compartment of the knee with the continuous suction and flow through the arthroscopic pump we ran through 9000 cc of saline. The sucker shaver was placed in patellofemoral joint and anterior compartment debride inflammatory tissue there was no intra-articular loose body he did have significant degenerative changes of the medial joint line. There were degenerative meniscal changes as well medial and lateral joint line. No intra-articular loose bodies were seen. Shaver was placed in the anterior compartment patellofemoral joint with debridement of the thickened synovial tissue. There return on the fluid became clear after about 3000 cc of fluid additional 6000 cc of fluid was ran through the knee for debridement once this is complete cameras removed the joint was drained local anesthesia infiltrated the portal sites skin closed with nylon stitch sterile dressing placed from toe to thigh patient waken from anesthesia taken recovery stable condition. Condition: stable Disposition: PACU Specimens:: Cultures of synovial fluid Complications:: None apparent
[2025-01-01] MEDS: ATORVASTATIN 40MG TABLET 40 MG PO (20:54)
[2025-01-01] MEDS: PREGABALIN 50MG CAPSULE 50 MG PO (20:54)
[2025-01-01] MEDS: humaLOG 100 UNITS/ML 10ML VIAL (SSI) SUBCUT (20:54)
[2025-01-01] MEDS: PANTOPRAZOLE 40MG TABLET 40 MG PO (20:54)
[2025-01-01] MEDS: CEFAZOLIN SODIUM 1 GM in 0.9 % SODIUM CHLORIDE 50 ML IV (20:54)
[2025-01-01 21:16] LABS: POC Glucose,Bedside 223 (70-110)
[2025-01-02] VITALS (8 sets, daily range): BP systolic 101–133; BP diastolic 64–73; PULSE 56–130; RESP 16–18; TEMP 36.4–36.9; O2SAT 93–100; BMI 27.3
[2025-01-02] MEDS: CEFAZOLIN SODIUM 1 GM in 0.9 % SODIUM CHLORIDE 50 ML IV ×3 (05:49→20:55)
[2025-01-02] MEDS: LEVOTHYROXINE 75MCG (0.075MG) TAB 75 MCG PO (06:00)
[2025-01-02 06:07] LABS: POC Glucose,Bedside 111 (70-110)
[2025-01-02 06:24] LABS: Basophils % 0.3 % (0.1-2.0); Eosinophils % 0.2 % (0.1-12.0); Hematocrit 36.8 % (42.0-52.0); Hemoglobin 12.4 g/dL (14.1-18.0); Lymphocytes # 0.5 K/mm3 (0.7-4.5); Lymphocytes % 8.7 % (10-50); Mean Corpuscular HGB Conc 33.7 g/dL (31.8-35.4); Mean Corpuscular Hemoglobin 33.5 pg (27.0-31.2); Mean Corpuscular Volume 99.5 fl (80-94); Mean Platelet Volume 9.5 fl (7.4-10.4); Monocytes # 0.8 K/mm3 (0.1-1.0); Monocytes % 12.8 % (1.7-9.3); Neutrophils # 4.6 K/mm3 (1.8-7.8); Neutrophils % 76.8 % (37.0-80.0); Platelet Count 167 K/mm3 (142-424); Red Cell Distribution Width 15.1 % (11.5-17.5)
[2025-01-02 07:02] LABS: Anion Gap 11.4 mEq/L (5-15); Blood Urea Nitrogen 31 mg/dl (9-20); Calcium 8.8 mg/dl (8.4-10.2); Carbon Dioxide 28 mmol/L (22.0-30.0); Chloride 101 mmol/L (98-107); Creatinine Clearance Estimated 84 mL/min (50-200); Estimated Glomerular Filt Rate 82 ml/min (>60); GFR (African American) 100 ML/MIN (>60); Glucose 119 mg/dl (74-100); Potassium 4.4 mmoL/L (3.5-5.1); Sodium 136 mmol/L (136-145)
--- NOTE | 2025-01-02 08:05 | EXP.ACUTE.PN ---
Subjective *Date: 01/02/25 *Time: 09:03 Interval history: Patient states his knee is still sore today. He has not tried to walk on it. He rested as well as he could and did eat. Medical Exam Vital signs and Labs for Last 24 Hours: Vital Signs Temp Pulse Pulse Resp BP BP Pulse Ox 01/02/25 07:53 98 F 77 16 119/64 97 01/02/25 06:34 01/02/25 05:00 01/02/25 04:00 90 01/02/25 03:00 01/02/25 01:00 01/02/25 00:00 85 01/01/25 23:00 01/01/25 21:00 01/01/25 20:45 98.3 F 82 18 132/74 97 01/01/25 20:00 105 H 01/01/25 20:00 01/01/25 19:45 98.4 F 86 18 132/76 98 01/01/25 18:45 98.1 F 110 H 17 119/71 95 01/01/25 17:45 97.9 F 108 H 17 130/69 95 01/01/25 17:23 01/01/25 16:45 97.9 F 108 H 17 138/84 94 L 01/01/25 16:15 97.9 F 67 17 133/71 95 01/01/25 16:06 100 H 01/01/25 15:59 01/01/25 15:45 97.9 F 55 L 17 138/86 96 01/01/25 15:15 97.9 F 79 17 165/106 H 97 01/01/25 15:00 97.9 F 51 L 16 119/71 97 01/01/25 14:35 97.9 F 61 16 144/90 H 99 01/01/25 14:28 01/01/25 14:20 97.9 F 101 H 16 130/88 99 01/01/25 14:10 97.6 F 103 H 16 133/65 100 01/01/25 14:00 97.6 F 97 H 16 163/66 H 100 01/01/25 13:50 97.6 F 100 H 16 151/59 H 100 01/01/25 13:49 98.1 F 98 H 16 125/75 01/01/25 13:40 97.6 F 99 H 16 127/67 99 03/04/25 11:16 98.6 F 86 18 105/64 L 97 01/01/25 10:21 98.6 F 99 H 20 99/65 L 01/01/25 09:35 01/01/25 09:30 96 H 112/64 95 01/01/25 08:23 98.6 F 112 H 20 139/84 98 O2 Del Method 01/02/25 07:53 Room Air 01/02/25 06:34 Room Air 01/02/25 05:00 Room Air 01/02/25 04:00 01/02/25 03:00 Room Air 01/02/25 01:00 Room Air 01/02/25 00:00 01/01/25 23:00 Room Air 01/01/25 21:00 Room Air 01/01/25 20:45 Room Air 01/01/25 20:00 01/01/25 20:00 Room Air 01/01/25 19:45 Room Air 01/01/25 18:45 Room Air 01/01/25 17:45 Room Air 01/01/25 17:23 Room Air 01/01/25 16:45 Room Air 01/01/25 16:15 Room Air 01/01/25 16:06 01/01/25 15:59 Room Air 01/01/25 15:45 Room Air 01/01/25 15:15 Room Air 01/01/25 15:00 Room Air 01/01/25 14:35 Room Air 01/01/25 14:28 Room Air 01/01/25 14:20 Room Air 01/01/25 14:10 Room Air 01/01/25 14:00 Room Air 01/01/25 13:50 Room Air 01/01/25 13:49 01/01/25 13:40 Room Air 01/01/25 11:16 Room Air 01/01/25 10:21 Room Air 01/01/25 09:35 Room Air 01/01/25 09:30 Room Air 01/01/25 08:23 Room Air Intake and Output 01/01/25 01/02/25 01/02/25 19:59 03:59 11:59 Intake Total 1080 / 1130 50 / 1130 Output Total 1000 / 1550 550 / 1550 Balance 1080 / -420 -1000 / -420 -500 / -420 Intake: Intake, Oral Amount 480 / 480 Intake, Total IV Amount 600 / 650 50 / 650 Cefazolin Sodium 1 gm In 0.9 % 50 / 50 Sodium Chloride 50 ml @ 100 mls /hr IV Q8H [facility] Rx#:[id number] Output: Output, Urine Amount 1000 / 1550 550 / 1550 Other: Weight 202 lb 6.4 oz Patient Weight 01/02/25 11:59 Weight 202 lb 6.4 oz Laboratory Results - last 24 hr 01/01/25 12:08: POC Glucose 150 H 01/01/25 14:02: POC Glucose 148 H 01/01/25 15:56: POC Glucose 138 H 01/01/25 20:53: POC Glucose 223 H 01/02/25 05:46: WBC 6.0, RBC 3.70 L, Hgb 12.4 L, Hct 36.8 L, MCV 99.5 H, MCH 33.5 H, MCHC 33.7, RDW 15.1, Plt Count 167, MPV 9.5, Neut % (Auto) 76.8, Lymph % (Auto) 8.7 L, [place] % (Auto) 12.8 H, Eos % (Auto) 0.2, Baso % (Auto) 0.3, Neut # (Auto) 4.6, Lymph # (Auto) 0.5 L, [place] # (Auto) 0.8, Eos # (Auto) 0.0, Baso # (Auto) 0.0, Sodium 136, Potassium 4.4, Chloride 101, Carbon Dioxide 28, Anion Gap 11.4, BUN 31 H, Creatinine 0.90, Estimated Creat Clear 84, Estimated GFR 82, Est GFR ( Amer) 100, Glucose 119 H, Calcium 8.8 01/02/25 05:48: POC Glucose 111 H I & O for Labs for Last 24 Hours: Intake & Output 12/30/24 12/31/24 01/01/25 01/02/25 11:59 11:59 11:59 11:59 Intake Total 1130 / 1130 Output Total 1550 / 1550 Balance -420 / -420 Weight 198 lb 6 oz 202 lb 6.4 oz Microbiology Reports for the Last 24 Hours: Microbiology 01/01/25 13:10 Synovial Fluid - Right Gram Stain - Final Constitutional: Present no acute distress Respiratory: Present CTA bilaterally Cardiac: Present Reg Rate and Rhythm GI: Present soft; Absent tenderness Extremities: Present edema (right knee, wrapped with an BLAINE wrap) Neuro: Present alert, awake and oriented x 3 Assessment and Plan *Assessment and plan (1) Septic arthritis: Problem Comment: Right knee Status: Acute Qualifiers: Laterality: right Septic arthritis location: knee Septic arthritis organism: staphylococcal Qualified Code(s): M00.061 - Staphylococcal arthritis, right knee Category: Medical Code(s): M00.9 - Pyogenic arthritis, unspecified (2) Osteoarthritis of knees, bilateral: Status: Acute Category: Medical Code(s): M17.0 - Bilateral primary osteoarthritis of knee (3) Smoldering myeloma: Problem Comment: Currently under treatment with hematology/oncology Dr. Eason Status: Acute Category: Medical Code(s): D47.2 - Monoclonal gammopathy (4) MGUS (monoclonal gammopathy of unknown significance): Status: Acute Category: Medical Code(s): D47.2 - Monoclonal gammopathy (5) History of coronary artery bypass graft: Status: Chronic Category: Surgical Code(s): Z95.1 - Presence of aortocoronary bypass graft (6) CAD (coronary artery disease): Status: Chronic Qualifiers: Associated angina: without angina Coronary Disease-Associated Artery/Lesion type: [place] artery [place] vs. transplanted heart: [place] heart Qualified Code(s): I25.10 - Atherosclerotic heart disease of [place] coronary artery without angina pectoris Category: Medical Code(s): I25.10 - Atherosclerotic heart disease of [place] coronary artery without angina pectoris (7) Cardiomyopathy: Status: Chronic Qualifiers: Cardiomyopathy type: unspecified Qualified Code(s): I42.9 - Cardiomyopathy, unspecified Category: Medical Code(s): I42.9 - Cardiomyopathy, unspecified (8) PAD (peripheral artery disease): Status: Chronic Category: Medical Code(s): I73.9 - Peripheral vascular disease, unspecified (9) MIO (obstructive sleep apnea): Status: Chronic Category: Medical Code(s): G47.33 - Obstructive sleep apnea (adult) (pediatric) (10) DM2 (diabetes mellitus, type 2): Status: Acute Qualifiers: Diabetes mellitus complication detail: with polyneuropathy Diabetes mellitus complication status: with neurologic complications Diabetes mellitus longterm insulin use: without intermediate project manager use Qualified Code(s): E11.42 - Type 2 diabetes mellitus with diabetic polyneuropathy Category: Medical Code(s): E11.9 - Type 2 diabetes mellitus without complications Plan Ortho to follow. Blood and synovial fluid cultures pending. Will continue IV abx. Dr. Tam entry - Saw patient, agree wit h above note. Will consult PT and attempt to ambulate with a walker.
[2025-01-02] MEDS: BISOPROLOL 5MG TABLET 5 MG PO (08:22)
[2025-01-02] MEDS: TAMSULOSIN 0.4MG CAPSULE 0.4 MG PO (08:22)
[2025-01-02] MEDS: EMPAGLIFLOZIN 10MG TABLET 10 MG PO (08:22)
[2025-01-02] MEDS: PREGABALIN 50MG CAPSULE 50 MG PO ×2 (08:22→20:56)
[2025-01-02] MEDS: humaLOG 100 UNITS/ML 10ML VIAL (SSI) SUBCUT ×3 (10:44→20:55)
[2025-01-02 10:46] LABS: POC Glucose,Bedside 199 (70-110)
--- NOTE | 2025-01-02 11:02 | HMH.PTEV ---
Physical Therapy Evaluation Rehab PT IP Evaluation Start: 01/02/25 09:04 Freq: ONCE Status: Active Protocol: Document 01/02/25 09:45 GUILLERMINACADEN (Rec: 01/02/25 11:02 PHORSHUKRI [id number]) Subjective/History History History 74-year-old male who presents to the hospital for treatment of right knee effusion. He had insidious onset of worsening knee pain over the weekend. Then became so severe he was unable to walk. He had aspiration performed in the emergency room that fluid was sent to [facility] for analysis is following cell count microscopic evaluation for crystals and Gram stain. He left yesterday but then presented back to the emergency room today with worsening pain and swelling in the knee. His white count the knee was 44,000 microscopic positive for calcium pyrophosphate crystals however Gram stain was few positive gram-positive cocci. He was admitted to the hospital with diagnosis septic arthritis in the knee Ortho consulted for definitive treatment options. The above per ER physician. Patient has a history of hypertension, ASCVD with coronary stents and open heart surgery, hyperlipidemia, hearing aids, atrial fibs converted, peripheral neuropathy, MGUS monoclonal gammopathy of undetermined significance and multiple myeloma followed by Dr. Eason, Elevated PSA. Now S /P R knee arthroscopy. He reports he lives with his , 2 FELISA the home, and he is generally independent with all mobility using a walking stick at baseline. Subjective Subjective Pt reports expected post-op pain and stiffness and is readily agreeable to OOB mobility assessment. [facility] How much help from another person do you currently need... Turning from your back to your side None while in a flat bed without using bedrails? Moving from lying on back to sitting on A little the side of a flat bed without using bedrails? Moving to and from a bed to a chair ( None including a wheelchair)? Standing up from a chair using your arms A little ? (e.g., wheelchair, bedside chair) Walking in hospital room? None Climbing 3-5 steps with a railing? None Mobility Score 22 Mobility Level Johnson Vargas Mobility Calculator Mobility 7 Walk 25 feet or more Rehab PT IP Eval Objective Appearance Patient Behavior Appropriate Patient Orientation Person,Place,Time Difficulty following instructions none Speech Pattern Clear Ambulation Patient Able to Ambulate Yes Ambulation Observation IP General Gait Pattern Observation Antalgic Gait Ambulation Distance (feet) 30 Ambulation Assistive Device Rolling Walker Ambulation Ability Supervision/Stand by Balance Ability to Arise Able, uses arms to help Sitting Balance Steady, safe Standing Balance Steady, wide stance Dynamic Sitting Balance Ability Good Dynamic Standing Balance Ability Fair Transfers Bed Transfer Ability Supervision/Stand by Chair Transfer Ability Supervision/Stand by Sit to Stand Bed Transfer Ability Minimal x 1 (25% assist) Sit to Stand Chair Transfer Ability Minimal x 1 (25% assist) Rehab PT IP prob,goals,plan Problems Date of Evaluation: 01/02/25 PT IP Problems Bed Mobility,Transfers,Gait Rehab Potential Rehab Potential Good Plan PT Intervention Plan Bed Mobility,Transfers,Gait, Therapeutic Exercise PT Plan Frequency BID Duration LOS Discharge Goals Bed Transfer Ability Independent Sit to Stand Chair Transfer Ability Contact Guard/Hand Hold Ambulation Assistive Device Rolling Walker Ambulation Distance (feet) 50 Discharge Plan PT Discharge Plan Pt is currently most appropriate to return home once medically stable for d/c. Skilled inpatient therapy services are indicated to improve strength in the R LE, improve transfer ability, and improve ambulation in order to return pt to [facility]. Eval Complexity Eval Charge Codes 70128 - High Complexity PHYSICIAN CERTIFICATION: I certify the specified therapy services for Kaleb Swan are required, authorized, and reviewed every 30 days.
--- NOTE | 2025-01-02 15:01 | P.PNANES_ITS ---
[facility] Anesthesia Record Part II Anesthesia Record Part II Discharge Time: 14:10 Destination: Medical Surgical Department PACU nurse assessment reviewed?: Yes Patient Condition:: Good Anesthesia Complications:: None Swallowing reflex intact?: Yes Airway Patency: Patent Cyanosis?: No Blood Pressure: 133/65 SaO2: 100 Respiratory Rate: 16 Pulse Rate: 103 Temperature: 97.6 F Mental Status: Alert & Oriented Pain level:: 0 Nausea and/or vomitting:: None Intake, IV Amount: 0 Hydration: Adequate
[2025-01-02 17:42] LABS: POC Glucose,Bedside 218 (70-110)
[2025-01-02] MEDS: RIVAROXABAN 10MG TABLET 20 MG PO (17:43)
--- NOTE | 2025-01-02 18:00 | P.PN_ITS ---
Subjective *Date: 01/02/25 *Time: 18:00 Interval history: Patient was able to get up and work with therapy a couple times a day. His knee feels much better after he gets up and gets moving on the walker. He is actually able to weight-bear today which is a big improvement than yesterday. Overall feels like he is improving still having some soreness in the knee not as severe as it was prior to surgery. Ortho Exam (Inpt) Vital signs and Labs for Last 24 Hours: Temp Pulse Resp BP Pulse Ox O2 Del Method 97.8 F 56 L 18 101/73 L 93 L Room Air 01/02/25 16:00 01/02/25 16:00 01/02/25 16:00 01/02/25 16:00 01/02/25 16:00 01/02/25 16:00 Laboratory Results - last 24 hr 01/01/25 20:53: POC Glucose 223 H 01/02/25 05:46: WBC 6.0, RBC 3.70 L, Hgb 12.4 L, Hct 36.8 L, MCV 99.5 H, MCH 33.5 H, MCHC 33.7, RDW 15.1, Plt Count 167, MPV 9.5, Neut % (Auto) 76.8, Lymph % (Auto) 8.7 L, [place] % (Auto) 12.8 H, Eos % (Auto) 0.2, Baso % (Auto) 0.3, Neut # (Auto) 4.6, Lymph # (Auto) 0.5 L, [place] # (Auto) 0.8, Eos # (Auto) 0.0, Baso # (Auto) 0.0, Sodium 136, Potassium 4.4, Chloride 101, Carbon Dioxide 28, Anion Gap 11.4, BUN 31 H, Creatinine 0.90, Estimated Creat Clear 84, Estimated GFR 82, Est GFR ( Amer) 100, Glucose 119 H, Calcium 8.8 01/02/25 05:48: POC Glucose 111 H 01/02/25 10:39: POC Glucose 199 H 01/02/25 17:35: POC Glucose 218 H I & O for Labs for Last 24 Hours: Intake & Output 12/30/24 12/31/24 01/01/25 01/02/25 23:59 23:59 23:59 23:59 Intake Total 1080 / 1080 910 / 910 Output Total 500 / 1000 1450 / 1450 Balance 580 / 80 -540 / -540 Weight 198 lb 6 oz 202 lb 6.4 oz Microbiology Reports for the Last 24 Hours: Microbiology 01/01/25 13:10 Synovial Fluid - Right Gram Stain - Final 01/01/25 13:10 Synovial Fluid - Right Body Fluid Culture - Preliminary NO GROWTH AFTER 24 HOURS 01/01/25 08:58 Blood Blood Culture - Preliminary NO GROWTH AFTER 24 HOURS 01/01/25 08:40 Blood Blood Culture - Preliminary NO GROWTH AFTER 24 HOURS Comment:: Right knee: Very small effusion. No surrounding ecchymosis or erythema. Calves are soft and nontender no evidence of DVT no evidence of compartment syndrome no pain with passive stretch of the toes wound benign. No drainage. Assessment and Plan *Assessment and plan (1) Septic arthritis: Problem Comment: Right knee Status: Acute Qualifiers: Laterality: right Septic arthritis location: knee Septic arthritis organism: staphylococcal Qualified Code(s): M00.061 - Staphylococcal arthritis, right knee Category: Medical Code(s): M00.9 - Pyogenic arthritis, unspecified Plan Patient seen improvement throughout the day is able to walk with a walker. Continues with empiric antibiotics. Awaiting final cultures from aspiration sent to [facility] also interoperative cultures were taken from surgery yesterday. Conversion to specific antibiotics pending culture results. Continue to work with physical therapy weightbearing as tolerated the right lower extremity.
--- NOTE | 2025-01-02 19:14 | PC.NURSE ---
pt a&ox4. resting in bed. pt up to chair numerous times this shift and walked the halls with physical therapy. tolerating ra w/ sats >90%. reports pain but does not want pain medications. abx given per dec. awaiting cultures before dc. call light within reach. no needs at this time.
[2025-01-02] MEDS: ATORVASTATIN 40MG TABLET 40 MG PO (20:56)
[2025-01-02] MEDS: PANTOPRAZOLE 40MG TABLET 40 MG PO (20:56)
[2025-01-02 21:07] LABS: POC Glucose,Bedside 181 (70-110)
[2025-01-03] VITALS: BP 122/70; PULSE 100; PULSE 94; RESP 18; TEMP 36.5; O2SAT 96
[2025-01-03 04:00] VITALS: BP 103/59; PULSE 70; PULSE 85; RESP 17; TEMP 36.9; O2SAT 93; BMI 27.3
--- NOTE | 2025-01-03 04:46 | PC.NURSE ---
patient has rested well through the shift, no complaints of pain, dressing to right knee is C/D/I, patient up to bathroom with walker and assistance, call button is in reach
[2025-01-03] MEDS: CEFAZOLIN SODIUM 1 GM in 0.9 % SODIUM CHLORIDE 50 ML IV ×2 (06:02→14:58)
[2025-01-03] MEDS: LEVOTHYROXINE 75MCG (0.075MG) TAB 75 MCG PO (06:02)
[2025-01-03 06:11] LABS: POC Glucose,Bedside 129 (70-110)
[2025-01-03 08:00] VITALS: BP 128/66; PULSE 110; PULSE 118; RESP 18; TEMP 36.6; O2SAT 96
--- NOTE | 2025-01-03 08:11 | EXP.ACUTE.PN ---
Subjective *Date: 01/03/25 *Time: 08:48 Interval history: Patient is still having pain in the knee but he was able to get up and move around with a walker. He ate all of his breakfast and slept better last night. Medical Exam Vital signs and Labs for Last 24 Hours: Vital Signs Temp Pulse Pulse Resp BP Pulse Ox O2 Del Method 01/03/25 06:40 Room Air 01/03/25 05:00 Room Air 01/03/25 04:00 70 01/03/25 04:00 98.5 F 85 17 103/59 L 93 L Room Air 01/03/25 03:00 Room Air 01/03/25 01:00 Room Air 01/03/25 00:00 100 H 01/03/25 00:00 97.7 F 94 H 18 122/70 96 Room Air 01/02/25 23:00 Room Air 01/02/25 21:00 Room Air 01/02/25 20:00 Room Air 01/02/25 20:00 110 H 01/02/25 20:00 98.5 F 66 18 133/71 98 Room Air 01/02/25 18:47 Room Air 01/02/25 17:00 Room Air 01/02/25 16:00 110 H 01/02/25 16:00 97.8 F 56 L 18 101/73 L 93 L Room Air 01/02/25 15:02 16 01/02/25 15:00 Room Air 01/02/25 13:00 Room Air 01/02/25 12:00 130 H 01/02/25 12:00 97.9 F 76 16 120/66 97 Room Air 01/02/25 11:00 Room Air 01/02/25 09:00 Room Air Intake and Output 01/02/25 01/03/25 01/03/25 19:59 03:59 11:59 Intake Total 1080 / 1370 290 / 1370 Output Total 200 / 200 Balance 1080 / 1170 90 / 1170 Intake: Intake, Oral Amount 1080 / 1320 240 / 1320 Intake, Total IV Amount 0 / 50 50 / 50 Cefazolin Sodium 1 gm In 0.9 % 50 / 50 Sodium Chloride 50 ml @ 100 mls /hr IV Q8H [facility] Rx#:[id number] Output: Output, Urine Amount 200 / 200 Other: Weight 201 lb 12.8 oz Patient Weight 01/03/25 11:59 Weight 201 lb 12.8 oz Laboratory Results - last 24 hr 01/02/25 10:39: POC Glucose 199 H 01/02/25 17:35: POC Glucose 218 H 01/02/25 20:50: POC Glucose 181 H 01/03/25 06:00: POC Glucose 129 H I & O for Labs for Last 24 Hours: Intake & Output 12/31/24 01/01/25 01/02/25 01/03/25 11:59 11:59 11:59 11:59 Intake Total 1630 / 1630 1370 / 1370 Output Total 1950 / 1950 200 / 200 Balance -320 / -320 1170 / 1170 Weight 198 lb 6 oz 202 lb 6.4 oz 201 lb 12.8 oz Microbiology Reports for the Last 24 Hours: Microbiology 01/01/25 13:10 Synovial Fluid - Right Gram Stain - Final 01/01/25 13:10 Synovial Fluid - Right Body Fluid Culture - Preliminary NO GROWTH AFTER 24 HOURS 01/01/25 08:58 Blood Blood Culture - Preliminary NO GROWTH AFTER 24 HOURS 01/01/25 08:40 Blood Blood Culture - Preliminary NO GROWTH AFTER 24 HOURS Constitutional: Present no acute distress Respiratory: Present CTA bilaterally Cardiac: Present Reg Rate and Rhythm GI: Present soft; Absent tenderness Extremities: Present edema (right knee, wrapped with an BLAINE wrap) Neuro: Present alert, awake and oriented x 3 Assessment and Plan *Assessment and plan (1) Septic arthritis: Problem Comment: Right knee Status: Acute Qualifiers: Laterality: right Septic arthritis location: knee Septic arthritis organism: staphylococcal Qualified Code(s): M00.061 - Staphylococcal arthritis, right knee Category: Medical Code(s): M00.9 - Pyogenic arthritis, unspecified (2) Osteoarthritis of knees, bilateral: Status: Acute Category: Medical Code(s): M17.0 - Bilateral primary osteoarthritis of knee (3) Smoldering myeloma: Problem Comment: Currently under treatment with hematology/oncology Dr. Eason Status: Acute Category: Medical Code(s): D47.2 - Monoclonal gammopathy (4) MGUS (monoclonal gammopathy of unknown significance): Status: Acute Category: Medical Code(s): D47.2 - Monoclonal gammopathy (5) History of coronary artery bypass graft: Status: Chronic Category: Surgical Code(s): Z95.1 - Presence of aortocoronary bypass graft (6) CAD (coronary artery disease): Status: Chronic Qualifiers: Associated angina: without angina Coronary Disease-Associated Artery/Lesion type: [place] artery [place] vs. transplanted heart: [place] heart Qualified Code(s): I25.10 - Atherosclerotic heart disease of [place] coronary artery without angina pectoris Category: Medical Code(s): I25.10 - Atherosclerotic heart disease of [place] coronary artery without angina pectoris (7) Cardiomyopathy: Status: Chronic Qualifiers: Cardiomyopathy type: unspecified Qualified Code(s): I42.9 - Cardiomyopathy, unspecified Category: Medical Code(s): I42.9 - Cardiomyopathy, unspecified (8) PAD (peripheral artery disease): Status: Chronic Category: Medical Code(s): I73.9 - Peripheral vascular disease, unspecified (9) MIO (obstructive sleep apnea): Status: Chronic Category: Medical Code(s): G47.33 - Obstructive sleep apnea (adult) (pediatric) (10) DM2 (diabetes mellitus, type 2): Status: Acute Qualifiers: Diabetes mellitus complication detail: with polyneuropathy Diabetes mellitus complication status: with neurologic complications Diabetes mellitus senior living insulin use: without local intermodal truck driver use Qualified Code(s): E11.42 - Type 2 diabetes mellitus with diabetic polyneuropathy Category: Medical Code(s): E11.9 - Type 2 diabetes mellitus without complications Plan Ortho to follow. Cultures are still pending. Will continue IV abx and PT. Dr. Tam entry - Saw patient, agree with above note.
[2025-01-03] MEDS: BISOPROLOL 5MG TABLET 5 MG PO (08:48)
[2025-01-03] MEDS: TAMSULOSIN 0.4MG CAPSULE 0.4 MG PO (08:48)
[2025-01-03] MEDS: EMPAGLIFLOZIN 10MG TABLET 10 MG PO (08:48)
[2025-01-03 12:00] VITALS: BP 110/71; PULSE 115; PULSE 90; RESP 17; TEMP 36.4; O2SAT 97
[2025-01-03 13:36] VITALS: BMI 27.3
--- NOTE | 2025-01-03 15:21 | SW/DCPLANNER ---
Addendum entered by Lisa Clinton 01/10/25 07:48: Per Lily ramírez/ [facility] Dr Shea called and requested that therapy sessions be put on hold for 2 weeks. Addendum entered by Fabby Kelly 01/03/25 15:39: [facility] is accepting patient. Jaime Sparks Original Note: Spoke with patient about Home Health services and patient stated that he has no preference. Faxed patients information over to [employer] and will update when i hear back from [employer]. Jaime Sparks
--- NOTE | 2025-01-04 09:54 | SW/DCPLANNER ---
Spoke with patient on the phone. Patient stated that he is feeling well just sore. Patient stated that he slept well last night. Patient stated that he is aware of his upcoming appointments. Patient stated that he did get his medicine brought to his room from clinic pharmacy. Patient stated that he has no concerns or questions at this time. Jaime Sparks
--- NOTE | 2025-01-08 23:34 | EXP.DC.SUM ---
General Admission date:: 01/01/25 Discharge date: 01/03/25 HPI HPI HPI: 74-year-old male who presents to the hospital for treatment of right knee effusion. He had insidious onset of worsening knee pain over the weekend. Then became so severe he was unable to walk. He had aspiration performed in the emergency room that fluid was sent to [facility] for analysis is following cell count microscopic evaluation for crystals and Gram stain. He left yesterday but then presented back to the emergency room today with worsening pain and swelling in the knee. His white count the knee was 44,000 microscopic positive for calcium pyrophosphate crystals however Gram stain was few positive gram-positive cocci. He was admitted to the hospital with diagnosis septic arthritis in the knee Ortho consulted for definitive treatment options. The above per ER physician. Patient has a history of hypertension, ASCVD with coronary stents and open heart surgery, hyperlipidemia, hearing aids, atrial fibs converted, peripheral neuropathy, MGUS monoclonal gammopathy of undetermined significance and multiple myeloma followed by Dr. Rapp., Elevated PSA. Patient describes having right knee issues for about a week. 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 For the last 2 to 3 days then he has been more swollen and red with ambulation becoming progressively difficult. He had to have assistance in getting into the car to come to the hospital. Patient denies having any fever but just has not felt well the last 2 to 3 days. He has had a decrease in his eating and drinking. At the time of this exam patient has returned from the recovery room after having right knee arthroscopic irrigation and debridement. He tolerated the procedure well. He currently remains a little bit groggy and sleepy. He does answer all questions very appropriately. Hospital Course Hospital Course Hospital Course: The patient was admitted and started on IV antibiotics. He had aspiration performed in the emergency room and the fluid was sent to the [facility] for analysis. Orthopedics was consulted and he was seen by Dr. De Souza. He was taken to the OR for irrigation and debridement for septic arthritis. A culture was taken during this procedure as well. The patient did begin feeling better. His knee was sore but he was able to walk with a walker. He began working with physical therapy. He was stable to be discharged home on 01/03/2025 on oral Keflex. He will follow-up with Dr. De Souza and Dr. Monse. Blood cultures showed no growth. Synovial fluid showed Staph epidermidis. Exam Data for Last 24 hours Vital signs and Labs for Last 24 Hours: Temp Pulse Resp BP Pulse Ox O2 Del Method 97.5 F L 115 H 17 110/71 97 Room Air 01/03/25 12:00 01/03/25 12:00 01/03/25 12:00 01/03/25 12:00 01/03/25 12:00 01/03/25 13:00 Narrative: Constitutional Constitutional: no acute distress Comments: Awake and alert. Sensorium intact *Routine HEENT Exam Head: Present normocephalic and atraumatic Eye: Present PERRL; Absent conjunctival icterus, scleral injection or conjunctivae pink ENT: Present mucous membranes moist and oropharynx clear *Routine Neck Exam Neck: Present supple; Absent carotid bruit, lymphadenopathy or thyromegaly *Routine Respiratory Exam Respiratory: Present CTA bilaterally (A&P) *Routine Cardiovascular Exam Cardiovascular: Present RRR *Routine Abdominal Exam Abdominal: Present soft and normoactive bowel sounds; Absent tenderness or distended *Routine Rectal Exam Rectal:: deferred *Routine Genitalia Exam Genitalia:: deferred *Routine Extremities Exam Extremities: Present edema (Right thigh and right toes. Artur wrap above and below the knee); Absent calf tenderness *Routine Neurological Exam Neurological: Present alert, oriented X3 and normal speech DS: Diagnosis Discharge Diagnosis (1) Septic arthritis: Status: Acute Code(s): M00.9 - Pyogenic arthritis, unspecified Qualifiers: Laterality: right Septic arthritis location: knee Septic arthritis organism: staphylococcal Qualified Code(s): M00.061 - Staphylococcal arthritis, right knee Problem details: Right knee (2) Osteoarthritis of knees, bilateral: Status: Acute Code(s): M17.0 - Bilateral primary osteoarthritis of knee (3) Smoldering myeloma: Status: Acute Code(s): D47.2 - Monoclonal gammopathy Problem details: Currently under treatment with hematology/oncology Dr. Eason (4) MGUS (monoclonal gammopathy of unknown significance): Status: Acute Code(s): D47.2 - Monoclonal gammopathy (5) History of coronary artery bypass graft: Status: Chronic Code(s): Z95.1 - Presence of aortocoronary bypass graft (6) CAD (coronary artery disease): Status: Chronic Code(s): I25.10 - Atherosclerotic heart disease of [place] coronary artery without angina pectoris Qualifiers: Coronary Disease-Associated Artery/Lesion type: [place] artery [place] vs. transplanted heart: [place] heart Associated angina: without angina Qualified Code(s): I25.10 - Atherosclerotic heart disease of [place] coronary artery without angina pectoris (7) Cardiomyopathy: Status: Chronic Code(s): I42.9 - Cardiomyopathy, unspecified Qualifiers: Cardiomyopathy type: unspecified Qualified Code(s): I42.9 - Cardiomyopathy, unspecified (8) PAD (peripheral artery disease): Status: Chronic Code(s): I73.9 - Peripheral vascular disease, unspecified (9) MIO (obstructive sleep apnea): Status: Chronic Code(s): G47.33 - Obstructive sleep apnea (adult) (pediatric) (10) DM2 (diabetes mellitus, type 2): Status: Acute Code(s): E11.9 - Type 2 diabetes mellitus without complications Qualifiers: Diabetes mellitus terminal superintendent insulin use: without terminal superintendent use Diabetes mellitus complication status: with neurologic complications Diabetes mellitus complication detail: with polyneuropathy Qualified Code(s): E11.42 - Type 2 diabetes mellitus with diabetic polyneuropathy Meds Home Medications and Allergies Home Medications ?Medication ?Instructions ?Recorded ?Confirmed ?Type atorvastatin 40 mg tablet 40 mg PO HS 12/20/17 01/08/25 History tamsulosin 0.4 mg capsule 0.4 mg PO DAILY 07/03/19 01/08/25 History bisoprolol fumarate 5 mg tablet 5 mg PO DAILY 01/08/21 01/08/25 History omeprazole 40 mg capsule,delayed 40 mg PO DAILY 02/16/21 01/08/25 History release levothyroxine 75 mcg tablet 75 mcg PO DAILYDM 12/16/22 01/08/25 History empagliflozin 10 mg tablet 10 mg PO DAILY 01/21/23 01/08/25 History (Jardiance) pregabalin 50 mg capsule 50 mg PO BID 01/10/24 01/08/25 History aspirin 81 mg chewable tablet 81 mg PO DAILY 03/16/24 01/08/25 History hydrochlorothiazide 25 mg tablet 25 mg PO DAILY 05/16/24 01/08/25 History amitriptyline 25 mg tablet 100 mg PO HS 12/18/24 01/08/25 History acyclovir 800 mg tablet 800 mg PO BID 01/01/25 01/08/25 History dexamethasone 4 mg tablet 20 mg PO WEEKLY 01/01/25 01/08/25 History losartan 100 mg tablet 100 mg PO DAILY 01/01/25 01/08/25 History potassium chloride 20 mEq 20 meq PO DAILY 01/01/25 01/08/25 History tablet,extended release(part/cryst) rivaroxaban 20 mg tablet (Xarelto) 20 mg PO QPMWITHMEAL 01/01/25 01/08/25 History cephalexin 500 mg capsule 500 mg PO QID #40 caps 01/03/25 01/08/25 Rx New Prescriptions to Start Prescriptions: Sachin Hirsch Allergies Allergy/AdvReac Type Severity Reaction Status Date / Time No Known Allergies Allergy Verified 01/08/25 13:00 Discharge Plan Disposition Patient Disposition: Home Health Service Condition: Fair Discharge Order Discharge Orders: Discharge Order (Routine); Ordered 01/03/25 Ordered By: Sachin Tam Follow up Plan Follow up with: Primo De Souza DO [Staff Physician] - 01/08/25 1:00 pm Kai Shea MD [Primary Care Provider] - 01/17/25 11:00 am Prescriptions/Medication Reconciliation: New cephalexin 500 mg capsule 500 mg PO QID Qty: 40 0RF Continued tamsulosin 0.4 mg capsule 0.4 mg PO DAILY Jardiance 10 mg tablet 10 mg PO DAILY pregabalin 50 mg capsule 50 mg PO BID Patient Comments: TAKE ONE CAPSULE BY MOUTH THREE TIMES DAILY MAY CAUSE DROWSINESS hydrochlorothiazide 25 mg tablet 25 mg PO DAILY Patient Comments: TAKE ONE TABLET BY MOUTH EVERY DAY atorvastatin 40 mg tablet 40 mg PO HS omeprazole 40 mg capsule,delayed release(DR/EC) 40 mg PO DAILY levothyroxine 75 mcg tablet 75 mcg PO DAILYDM amitriptyline 25 mg tablet 100 mg PO HS bisoprolol fumarate 5 MG tablet 5 mg PO DAILY aspirin 81 mg Tablet,Chewable 81 mg PO DAILY potassium chloride 20 mEq tablet,ER particles/crystals 20 meq PO DAILY dexamethasone 4 mg tablet 20 mg PO WEEKLY Patient Comments: TAKE 10 TABLETS BY MOUTH ONCE WEEKLY losartan 100 mg tablet 100 mg PO DAILY acyclovir 800 mg tablet 800 mg PO BID Xarelto 20 mg tablet 20 mg PO QPMWITHMEAL Problem Reconciliation Problems Reviewed?: Yes Patient Discharge Instructions ACTIVITY: Limited activity DIET: continue same diet Patient Instructions: Septic Arthritis, DI for Septic Arthritis, DI for Surgical Site Infection, DI for Knee Arthroscopy Print Language: Bengali Providers Primary Care Provider: Kai Shea Admit Provider: Sachin Tam Attending Provider: Sachin Tam
--- OUTSIDE RECORDS SUMMARY | 2025-02-07 09:30 | XMS_ITS ---
Author Organization Unknown Medications Date Medication Dosage DosageUnit StartDate StopDate StopReason Active DoseQuantity DoseUnit Dispense DispenseUnit Refills NdcCode DrugCode PharmacyId IsPrescription MappedMedication Srcstatus 01/21 00:00 :00 Amitriptyli ne HCl 50 MG Tablet 1 45 3 [id number] 21 421 P Taking 10/18 00:00 :00 Amitriptyli ne HCl 50 MG Tablet 1 45 3 [id number] 21 421 P Unknown Status 10/18 00:00 :00 Amitriptyli ne HCl 50 MG Tablet 1 45 3 409761 21 421 Taking 04/19 00:00 :00 Amitriptyli ne HCl 50 MG Tablet 1 45 3 [id number] 21 421 Taking 01/21 00:00 :00 Atorvastati n Calcium 40 MG Tablet 1 90 1 000 94831 810 P Taking 01/21 00:00 :00 Atorvastati n Calcium 40 mg Tablet 1 90 Tablet 1 [id number] 701 Taking 10/18 00:00 :00 Atorvastati n Calcium 40 MG Tablet 1 90 1 000 51522 810 P Unknown Status 10/18 00:00 :00 Atorvastati n Calcium 40 MG Tablet 1 90 1 000 45642 810 P Taking 10/18 00:00 :00 Atorvastati n Calcium 40 mg Tablet 1 90 Tablet 1 [id number] 701 Taking 04/19 00:00 :00 Atorvastati n Calcium 40 MG Tablet 1 90 1 000 51992 810 P Unknown Status 04/19 00:00 :00 Atorvastati n Calcium 40 mg Tablet 1 90 Tablet 1 [id number] 701 Taking 01/21 00:00 :00 Bisoprolol Fumarate 5 MG Tablet 1 90 1 1671 4052 901 P Taking 01/21 00:00 :00 Bisoprolol Fumarate 5 MG Tablet 1 90 Tablet 1 [id number] 901 Taking 10/18 00:00 :00 Bisoprolol Fumarate 5 MG Tablet 1 90 1 1671 4052 901 P Unknown Status 10/18 00:00 :00 Bisoprolol Fumarate 5 MG Tablet 1 90 1 1671 4052 901 P Taking 10/18 00:00 :00 Bisoprolol Fumarate 5 MG Tablet 1 90 Tablet 1 [id number] 901 Taking 04/19 00:00 :00 Bisoprolol Fumarate 5 MG Tablet 1 90 1 1671 4052 901 P Unknown Status 04/19 00:00 :00 Bisoprolol Fumarate 5 MG Tablet 1 90 Tablet 1 [id number] 901 Taking 10/18 00:00 :00 Famotidine 40 MG Tablet 04/28/2020 00:00:00 1 90 1 [id number] 2 960 P Not Taking 04/19 00:00 :00 Famotidine 40 MG Tablet 04/28/2020 00:00:00 1 90 1 [id number] 2 960 P Not Taking 01/21 00:00 :00 hydroCHLORO thiazide 25 MG Tablet 1 90 1 0017 2208 360 P Taking 01/21 00:00 :00 hydroCHLORO thiazide 25 MG Tablet 1 90 1 0017 2208 360 Taking 10/18 00:00 :00 hydroCHLORO thiazide 25 MG Tablet 1 90 1 0017 2208 360 P Unknown Status 10/18 00:00 :00 hydroCHLORO thiazide 25 MG Tablet 1 90 1 0017 2208 360 Taking 10/17 00:00 :00 hydroCHLORO thiazide 25 MG Tablet 1 90 1 0017 2208 360 Start 10/17 00:00 :00 hydroCHLORO thiazide 25 MG Tablet 0 90 1 0017 2208 360 Stop 04/19 00:00 :00 hydroCHLORO thiazide 25 MG Tablet 1 90 1 0017 2208 360 P Unknown Status 04/19 00:00 :00 hydroCHLORO thiazide 25 MG Tablet 1 90 1 0017 2208 360 P Taking 10/18 00:00 :00 HYDROcodone -Acetaminop hen 7.5-325 MG Tablet 1 30 [id number] 501 P Not Taking 04/19 00:00 :00 HYDROcodone -Acetaminop hen 7.5-325 MG Tablet 1 30 45990328 501 P Not Taking 01/21 00:00 :00 Jardiance 10 MG Tablet 1 90 1 [id number] 5 207 P Taking 01/21 00:00 :00 Jardiance 10 mg Tablet 1 90 Tablet 1 799011 230 Taking 10/18 00:00 :00 Jardiance 10 MG Tablet 1 90 1 [id number] 5 207 P Unknown Status 10/18 00:00 :00 Jardiance 10 mg Tablet 1 90 Tablet 1 [id number] 230 Taking 10/17 00:00 :00 Jardiance 10 mg Tablet 1 90 Tablet 1 [id number] 230 Start 10/17 00:00 :00 Jardiance 10 MG Tablet 0 90 1 3288087 5 207 Stop 04/19 00:00 :00 Jardiance 10 MG Tablet 1 90 1 [id number] 5 207 P Unknown Status 04/19 00:00 :00 Jardiance 10 mg Tablet 1 90 Tablet 1 [id number] 230 Taking 01/21 00:00 :00 Levothyroxi ne Sodium 75 MCG Tablet 1 90 1 00 151181 510 P Taking 01/21 00:00 :00 Levothyroxi ne Sodium 75 mcg Tablet 1 90 Tablet 0 96107279 917 Taking 10/18 00:00 :00 Levothyroxi ne Sodium 75 MCG Tablet 1 90 1 00 786463 510 P Unknown Status 10/18 00:00 :00 Levothyroxi ne Sodium 75 MCG Tablet 1 90 1 00 644669 510 P Taking 10/18 00:00 :00 Levothyroxi ne Sodium 75 mcg Tablet 1 90 Tablet 0 65930892 917 Taking 04/19 00:00 :00 Levothyroxi ne Sodium 75 MCG Tablet 1 90 1 00 048001 510 P Unknown Status 04/19 00:00 :00 Levothyroxi ne Sodium 75 mcg Tablet 1 90 Tablet 0 77453691 917 Taking 03/22 00:00 :00 Levothyroxi ne Sodium 75 mcg Tablet 1 90 Tablet 0 08048894 917 Start 03/22 00:00 :00 Levothyroxi ne Sodium 75 mcg Tablet 0 90 Tablet 0 34781097 917 Stop 01/21 00:00 :00 Losartan Potassium 100 MG Tablet 1 90 1 82 480123 410 P Taking 10/18 00:00 :00 Losartan Potassium 100 MG Tablet 1 90 1 82 909700 410 P Unknown Status 10/18 00:00 :00 Losartan Potassium 100 MG Tablet 1 90 1 82 110809 410 P Taking 04/19 00:00 :00 Losartan Potassium 100 MG Tablet 1 90 1 82 168389 410 P Unknown Status 04/19 00:00 :00 Losartan Potassium 100 MG Tablet 1 90 1 82 529643 410 P Taking 01/21 00:00 :00 Omeprazole 40 mg Capsule Delayed Release 1 90 Capsule 1 55095630 305 Taking 12/27 00:00 :00 Omeprazole 40 mg Capsule Delayed Release 1 90 Capsule 1 [id number] 305 Start 12/27 00:00 :00 Omeprazole 40 mg Capsule Delayed Release 0 90 Capsule 1 [id number] 302 Stop 10/18 00:00 :00 Omeprazole 40 mg Capsule Delayed Release 1 90 Capsule 1 89044542 302 Taking 06/26 00:00 :00 Omeprazole 40 mg Capsule Delayed Release 1 90 Capsule 1 [id number] 302 Start 06/26 00:00 :00 Omeprazole 40 mg Capsule Delayed Release 0 90 Capsule 1 83241240 302 Stop 04/19 00:00 :00 Omeprazole 40 mg Capsule Delayed Release 1 90 Capsule 1 [id number] 302 Taking 01/21 00:00 :00 Pregabalin 50 MG Capsule 1 79108 285 709 Taking 10/18 00:00 :00 Pregabalin 50 MG Capsule 1 78233 285 709 Continue 10/18 00:00 :00 Pregabalin 50 MG Capsule 1 04387 285 709 Taking 04/19 00:00 :00 rOPINIRole HCl 0.5 MG Tablet 1 666518 67 401 P Taking 01/21 00:00 :00 Tamsulosin HCl 0.4 mg Capsule 1 90 Capsule 1 33451541 201 Taking 10/18 00:00 :00 Tamsulosin HCl 0.4 mg Capsule 1 90 Capsule 1 22144414 201 Taking 08/23 00:00 :00 Tamsulosin HCl 0.4 mg Capsule 1 90 Capsule 1 27320346 201 Start 08/23 00:00 :00 Tamsulosin HCl 0.4 mg Capsule 0 90 Capsule 1 90504726 210 Stop 04/19 00:00 :00 Tamsulosin HCl 0.4 mg Capsule 1 90 Capsule 1 10660561 210 Taking 02/16 00:00 :00 Tamsulosin HCl 0.4 mg Capsule 1 90 Capsule 1 53059544 210 Start 02/16 00:00 :00 Tamsulosin HCl 0.4 MG Capsule 0 90 Capsule 1 33711328 510 Stop 01/21 00:00 :00 Xarelto 2.5 mg Tablet 1 180 Tablet 1 76263433 760 Taking 01/21 00:00 :00 Xarelto 20 MG Tablet 10/19/2024 00:00:00 1 30 9802477 7 910 P Taking 10/19 00:00 :00 Xarelto 20 MG Tablet 10/19/2024 00:00:00 1 30 7558968 7 910 P Continue 10/19 00:00 :00 Xarelto 2.5 MG Tablet 0 44640023 701 P Stop 10/18 00:00 :00 Xarelto 2.5 MG Tablet 1 180 1 49274556 701 P Unknown Status 10/18 00:00 :00 Xarelto 2.5 MG Tablet 1 180 1 02147021 701 P Taking 10/18 00:00 :00 Xarelto 2.5 mg Tablet 1 180 Tablet 1 62104572 760 Taking 04/19 00:00 :00 Xarelto 2.5 MG Tablet 1 180 1 23883707 701 P Unknown Status 04/19 00:00 :00 Xarelto 2.5 mg Tablet 1 180 Tablet 1 88168172 760 Taking
== END 2025-01-03 15:48 | disposition home health service (06) | DRG 486 ==
LOC: ER 08:26 → 2ND 09:36
PROVIDERS: Orthopaedic Surgery; Admitting Provider Family Medicine; Emergency Provider Emergency Medicine; PCP Family Medicine; Visit Provider Family Medicine
PROC: 0SBC4ZZ Excision of Right Knee Joint, Percutaneous Endoscopic Approach (ICD-10-PCS; CPT 29870; principal; 2025-01-01 12:30)
DX: M00.061 Staphylococcal arthritis, right knee (principal); I42.9 Cardiomyopathy, unspecified; M17.0 Bilateral primary osteoarthritis of knee; D47.2 Monoclonal gammopathy; I25.10 Atherosclerotic heart disease of native coronary artery without angina pectoris; I73.9 Peripheral vascular disease, unspecified; E78.5 Hyperlipidemia, unspecified; E03.9 Hypothyroidism, unspecified; G20.A1 Parkinson's disease without dyskinesia, without mention of fluctuations; G47.33 Obstructive sleep apnea (adult) (pediatric); E11.42 Type 2 diabetes mellitus with diabetic polyneuropathy; K21.9 Gastro-esophageal reflux disease without esophagitis; M25.561 Pain in right knee; M25.461 Effusion, right knee; Z95.1 Presence of aortocoronary bypass graft; Z79.01 Long term (current) use of anticoagulants; Z79.82 Long term (current) use of aspirin; Z79.890 Hormone replacement therapy; Z79.84 Long term (current) use of oral hypoglycemic drugs; Z79.899 Other long term (current) drug therapy; Z90.49 Acquired absence of other specified parts of digestive tract; Z95.810 Presence of automatic (implantable) cardiac defibrillator
CPT/HCPCS: 36415; 80048; 82962; 85025; 87040; 87070; 87075; 87205; 97163; 97530; 99285; C9144; J0690; J1100; J1885; J2405; J3010; J3372; J7120

== ENCOUNTER 2025-01-15 08:00 | Outpatient (CLI) | payer MEDICARE, BC, SELFPAY ==
--- NOTE | 2025-01-15 08:32 | PC.NURSE ---
Pt presents today for md appt with oncology and lab draw. Venipuncture performed per Wanda Spann RN x 2 sticks to pt's lt ac, blood drawn for labs. Pt initially accessed to the rt ac, partial labs drawn from this site and vein failed. Venipuncture then accessed to pt's lt ac where remaining blood was drawn. [place] withdrawn from both sites and sites secured with 2x2 gauze and coban. Pt to attend md appt and return if md is ok with pt receiving xgeva today. Specimens sent to lab for analysis.
[2025-01-15 08:42] LABS: Basophils % 0.4 % (0.1-2.0); Eosinophils % 0.6 % (0.1-12.0); Hematocrit 40.7 % (42.0-52.0); Hemoglobin 13.2 g/dL (14.1-18.0); Lymphocytes # 0.3 K/mm3 (0.7-4.5); Lymphocytes % 4.3 % (10-50); Mean Corpuscular HGB Conc 32.4 g/dL (31.8-35.4); Mean Corpuscular Hemoglobin 32.1 pg (27.0-31.2); Mean Platelet Volume 9.2 fl (7.4-10.4); Monocytes # 0.5 K/mm3 (0.1-1.0); Monocytes % 6.7 % (1.7-9.3); Neutrophils # 6.2 K/mm3 (1.8-7.8); Platelet Count 266 K/mm3 (142-424); Red Blood Count 4.11 M/mm3 (4.60-6.20); Red Cell Distribution Width 14.5 % (11.5-17.5); White Blood Count 7.2 K/mm3 (4.8-10.8)
--- NOTE | 2025-01-15 08:58 | PC.NURSE ---
pt assisted per wc down to appt with oncology. Pt to return for possible tx
[2025-01-15 09:06] LABS: Alanine Aminotransferase 10 U/L (12-78); Albumin Level 4.2 g/dl (3.5-5.0); Albumin/Globulin Ratio 1.4 (1.1-1.8); Alkaline Phosphatase 86 U/L (38-126); Aspartate Amino Transferase 24 U/L (17-59); Bilirubin,Total 1.3 mg/dl (0.2-1.3); Blood Urea Nitrogen 23 mg/dl (9-20); Calcium 9.2 mg/dl (8.4-10.2); Carbon Dioxide 29 mmol/L (22.0-30.0); Chloride 98 mmol/L (98-107); Estimated Glomerular Filt Rate 73 ml/min (>60); GFR (African American) 88 ML/MIN (>60); Globulin 3.1 g/dL (1.3-3.2); Glucose 157 mg/dl (74-100); Sodium 138 mmol/L (136-145); Total Protein,Serum 7.3 g/dl (6.3-8.2)
[2025-01-16 09:21] LABS: Color,Fluid RED
[2025-01-16 09:24] LABS: Clarity,Fluid CLOUDY
[2025-01-16 09:25] LABS: Nucleated cells, Syn. Fluid 75000; Polys,Fluid 93; RBC,Fluid 45500
[2025-01-16 09:26] LABS: Eosinophils,Fluid 0; Lining Cells, Synovial Fld 0; Lymphocytes,Fluid 0; Macrophages,Fluid 7
[2025-01-16 16:49] LABS: Albumin 3.1 g/dL (2.9-4.4); Alpha-1-Globulin 0.5 g/dL (0.0-0.4); Alpha-2-Globulin 1.3 g/dL (0.4-1.0); Gamma Globulin 0.6 g/dL (0.4-1.8); Protein, Total 6.6 g/dL (6.0-8.5)
== END 2025-01-15 10:10 | disposition home or self-care (01) ==
PROVIDERS: Physician Assistant Surgical; PCP Family Medicine; Visit Provider Internal Medicine Medical Oncology
DX: D47.2 Monoclonal gammopathy (principal); M00.061 Staphylococcal arthritis, right knee
CPT/HCPCS: 36415; 80053; 82784; 84155; 84165; 85025; 87070; 87205; 89051; 89060

== ENCOUNTER 2025-01-15 12:29 | Outpatient (CLI) | payer MEDICARE, BC, SELFPAY ==
[2025-01-15 12:44] VITALS: BMI 27.5
--- NOTE | 2025-01-15 13:00 | ECG_ITS ---
APPROVED REPORT Exam: Resting ECG HR:120 bpm ECG Measurements Heart Rate 120 AXES QRSd 145 QRS 206 QT 362 T 1 QTc 433 Conclusion ATRIAL FIBRILLATION WITH RAPID VENTRICULAR RESPONSE WITH ABERRANT CONDUCTION OR VENTRICULAR PREMATURE COMPLEXES RIGHT BUNDLE BRANCH BLOCK [120+ ms QRS DURATION, UPRIGHT V1, 40+ ms S IN I/aVL/V4/V5/V6] LEFT POSTERIOR FASCICULAR BLOCK [QRS AXIS > 109, INFERIOR Q] ABNORMAL ECG UNCONFIRMED REPORT Electronically signed by : Richard Funk MD 01/18/2025 08:52:42
== END 2025-01-15 23:59 | disposition home or self-care (01) ==
LOC: PREOP 12:32
PROVIDERS: PCP Family Medicine; Visit Provider Orthopaedic Surgery
DX: I48.91 Unspecified atrial fibrillation (principal); I45.2 Bifascicular block; R94.31 Abnormal electrocardiogram [ECG] [EKG]
CPT/HCPCS: 93005

== ENCOUNTER → 2025-01-16 08:14 | Day surgery (SDC) | payer MEDICARE, BC, SELFPAY ==
--- NOTE | 2025-01-16 08:24 | CA_ITS ---
APPROVED REPORT EXAM: Comprehensive 2D, Doppler, and color-flow Echocardiogram [employer]: Ann Flaherty RVT Ht: 6 ft 0 in Wt: 203lbs BSA: 2.14 BP: 135/89 mmHg Indications: PRE-OP,CAD,HX CM,AICD,HTN,DM,HLD,MULTIPLE MYELOMA,DIZZINESS,CABG 2D Dimensions IVSd 1.12 cm M: 0.6-1.2 LVEF (Visual) 33.20 % PWd 0.80 cm M: 0.6 - 1.2 LVDd 6.39 cm M: 4.2 - 5.9 LVDs 5.36 cm M: 2.5 - 4.0 M-Mode Dimensions LA Diam 5.39 cm (1.9-4.0) TAPSE 1.22 (<1.7) LV Diastology E Decel Time 170 (160-240 msec) E/A Ratio 3.5 Aortic Valve LEFTY Index 0.90 cm2/m2 AoV Peak Pasha. 190.0 (50-130 cm/s) AI PHT 356.00 ms AO Peak GR. 14.50 mmHg AO Mean GR. 9.80 (<5 mmHg) AO VTI 30.3 (18-25 cm) LEFTY (VTI) 1.98 (2.5-4.5 cm2) Mitral Valve MV E Max Pasha. 104.0 (40-130 cm/s) MV A Velocity 30.0 (40-130 cm/s) E/A Ratio 3.46 MV PHT 50.0 ms Pulmonary Valve PV Peak Velocity 55.0 (50-150 cm/s) Tricuspid Valve TR P. Velocity 282.00 cm/s RAP Estimate 10.00 mmHg RVSP 41.80 mmHg Left Ventricle The left ventricle is normal size. Left ventricular systolic function is moderately decreased. There is increased LV wall thickness. There is moderate global hypokinesis present. The septum is asynchronous. Diastolic function is indeterminate. LVEF is 35-40%. Right Ventricle The right ventricle is mildly dilated. Right ventricle is mildly hypokinetic. There is a device lead in the right ventricle. Atria Left atrium is moderately dilated. Right atrium is moderately dilated. There is no Doppler evidence of interatrial shunt. Aortic Valve Aortic valve is mildly thickened. Mild aortic regurgitation. Aortic sclerosis, but no evidence of hemodynamically significant aortic stenosis. Mitral Valve Mild mitral annular calcification. The mitral valve leaflets are mildly thickened. The posterior MV leaflet is restricted in motion. At least mild mitral regurgitation is present. The MR jet is eccentric and may be underestimated. Tricuspid Valve Tricuspid valve is grossly normal in structure and function. Mild to moderate tricuspid regurgitation. RVSP is 30-35 mmHg. Pulmonic Valve The pulmonary valve is normal in structure. Trace pulmonic regurgitation. Great Vessels The aortic root is normal in size. IVC is normal in size and collapses >50% with inspiration. Pericardium There is no pericardial effusion. Other Information Study Quality: Fair Conclusion Moderate reduction in LV systolic function (LVEF 35-40%). Mild RV dilation with mild reduction in RV function. Biatrial dilation. Mild to moderate TR. 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 RVSP 30-35 mmHg. Compared to prior study from 05/26/2023, the reduction in LV systolic function is new. Electronically signed by : Ronda Little MD 01/16/2025 12:14:11
--- NOTE | 2025-01-16 09:26 | SUR.PREOP ---
procedure cancelled per Dr De Souza d/t pt fall today at home and LOC. Pt sent to ER for evaluation per wheelchair by FAZAL Lowe and FAZAL Roth
--- NOTE | 2025-01-16 10:34 | EXP.ORTH.PN ---
Subjective *Date: 01/16/25 *Time: 10:34 Interval history: 74-year-old male presented for preop for planned arthroscopic debridement of right knee. This morning he suffered a fall at his house near his bed and dresser does not believe he lost consciousness however his friend found him down he hit his head left ribs and had skin tears on his forearm. He was presenting for left knee arthroscopic debridement following aspiration in the clinic yesterday. Ortho Exam (Inpt) Comment:: Right knee: No redness erythema or streaking. Significant decrease of the amount effusion present compared to yesterday. He is able to extend his knee with minimal discomfort to the medial joint line and anterior knee. Assessment and Plan *Assessment and plan (1) Effusion of knee joint right: Status: Acute Category: Medical Code(s): M25.461 - Effusion, right knee Plan Patient had preoperative echocardiogram ordered and performed this morning for surgical clearance per anesthesia request. The pulmonary report showed decreased ejection fraction. Patient has a complicated cardiac history with history of CABG coronary artery disease. The clinical picture with the effusion is significantly better today. Aspiration was performed [facility] to the [facility] the total white count of nucleated cells 75,000 per high-power field however red blood cell count was 45,500. Crystals were present in the previous aspiration and this aspiration calcium pyrophosphate versus steroid crystals. Because of the fall he was sent to the emergency room for evaluation surgery canceled for today the clinical picture of his knee significantly improved. Interestingly the only thing that has grown initially was in the potential contaminant with Staph epidermidis with initial aspiration versus infection. He had a previous cleanout that fluid however did not grow bacteria after 5 days of growth and Gram stain was negative. Gram stain also negative of aspiration yesterday for pathogens. Cultures pending. Surgery canceled for today cardiac workup complete cardiac visit pending patient sent to the emergency room for evaluation after hitting his head and ribs and lacerating his arm. He will have close clinical follow-up we did change his antibiotics yesterday we will continue to follow for any growth on culture make clinical decision in regards to irrigation debridement based on clinical picture.
== END ==
LOC: OR 08:16
PROVIDERS: PCP Family Medicine; Visit Provider Orthopaedic Surgery
PROC: (CPT 29870; principal; 2025-01-16 12:45)
DX: M25.461 Effusion, right knee (principal); Z53.09 Procedure and treatment not carried out because of other contraindication; I25.10 Atherosclerotic heart disease of native coronary artery without angina pectoris
CPT/HCPCS: 93306

== ENCOUNTER 2025-01-16 09:24 | Emergency (ER) | payer MEDICARE, BC, SELFPAY ==
[2025-01-16] VITALS (9 sets, daily range): BP systolic 102–138; BP diastolic 72–90; PULSE 75–115; RESP 12–18; TEMP 36.7; O2SAT 98–100; BMI 26.0
--- NOTE | 2025-01-16 09:36 | ECG_ITS ---
APPROVED REPORT Exam: Resting ECG HR:97 bpm ECG Measurements Heart Rate 97 AXES QRSd 168 QRS 206 QT 366 T 14 QTc 421 Conclusion ATRIAL FIBRILLATION RIGHT AXIS DEVIATION [QRS AXIS > 100] RIGHT BUNDLE BRANCH BLOCK [120+ ms QRS DURATION, UPRIGHT V1, 40+ ms S IN I/aVL/V4/V5/V6] ABNORMAL ECG UNCONFIRMED REPORT A-fib with right bundle branch block. Ventricular rate of [address] elevation or depression Electronically signed by : KYARA LIANG, 01/16/2025 16:34:30
--- NOTE | 2025-01-16 09:51 | CT_ITS ---
FINAL REPORT TECHNIQUE: Noncontrast exam This study was performed with techniques to keep radiation doses as low as reasonably achievable, (ALARA). Individualized dose reduction techniques using automated exposure control or adjustment of mA and/or kV according to the patient's size were employed. CLINICAL HISTORY: Fall, left sided head trauma COMPARISON: 03/17/2023 FINDINGS: Moderate to severe atrophy and mild chronic ischemic white matter changes are noted. No cortical edema is present. There is no mass or hemorrhage. Ventricles are normal. Bone windows show no skull fracture or obvious obstructive lesion. IMPRESSION: 1. No acute intracranial abnormality or obvious mass. 2. Atrophy and chronic ischemic white matter changes as above. Reviewed, Interpreted and Dictated by Katlin Chiang MD Transcribed by Tammie Donald Authenticated and [facility]
--- NOTE | 2025-01-16 09:51 | CT_ITS ---
FINAL REPORT TECHNIQUE: Thin section axial CT with sagittal reconstruction without contrast This study was performed with techniques to keep radiation doses as low as reasonably achievable, (ALARA). Individualized dose reduction techniques using automated exposure control or adjustment of mA and/or kV according to the patient's size were employed. CLINICAL HISTORY: Fall, head trauma COMPARISON: 03/17/2023 FINDINGS: CT CERVICAL SPINE: No fracture is seen. Alignment is normal. No obvious bony spinal canal stenosis is present. Moderate diffuse degenerative disc disease is present along with facet arthropathy. IMPRESSION: Degenerative changes are present in the cervical spine without evidence of acute fracture or malalignment. Reviewed, Interpreted and Dictated by Katlin Chiang MD Transcribed by Tammie Donald Authenticated and [facility]
--- NOTE | 2025-01-16 09:51 | XR_ITS ---
FINAL REPORT TECHNIQUE: Single view chest CLINICAL HISTORY: Fall COMPARISON: 12/04/2024 FINDINGS: A single view of the chest was obtained. Patient is status post CABG. A left-sided pacemaker is in place. The heart and mediastinum are within normal limits. The lungs are clear. There is no pneumothorax. Osseous structures demonstrate old left rib fractures. IMPRESSION: No acute cardiopulmonary process. Reviewed, Interpreted and Dictated by Katlin Chiang MD Transcribed by Lyric Hodge Authenticated and [facility]
--- NOTE | 2025-01-16 09:54 | XR_ITS ---
FINAL REPORT CLINICAL HISTORY: Fall, injury FINDINGS: LEFT WRIST 2 views were obtained. There is no acute fracture or dislocation. There are mild degenerative changes. Widening is seen of the scapholunate space up to 5 mm which may be seen with ligamentous injury. There is mild chondrocalcinosis of the TFCC. IMPRESSION: No acute bony abnormality. Widening of the scapholunate space which may be seen with ligamentous injury of indeterminate age. Reviewed, Interpreted and Dictated by Katlin Chiang MD Transcribed by Lyric Hodge Authenticated and [facility]
--- NOTE | 2025-01-16 09:54 | XR_ITS ---
FINAL REPORT CLINICAL HISTORY: Fall, injury FINDINGS: 2 views of the left forearm were obtained. There is no acute fracture or dislocation. The joints are intact. There are degenerative changes of the elbow and wrist. There are no soft tissue abnormalities. IMPRESSION: No acute process. Reviewed, Interpreted and Dictated by Katlin Chiang MD Transcribed by Lyric Hodge Authenticated and . [facility]
--- NOTE | 2025-01-16 09:54 | XR_ITS ---
FINAL REPORT CLINICAL HISTORY: Fall, injury FINDINGS: 2 views of the elbow were obtained. There is no acute fracture or dislocation. The joint spaces are intact. Moderate degenerative changes are noted. The soft tissues are unremarkable. IMPRESSION: No acute fracture. Reviewed, Interpreted and Dictated by Katlin Chiang MD Transcribed by Lyric Hodge Authenticated and . [facility]
--- NOTE | 2025-01-16 09:59 | PC.NURSE ---
respiratory aware of vbg
[2025-01-16 10:05] LABS: Chloride 100 mmol/L (98-107); Sodium 136 mmol/L (136-145)
[2025-01-16 10:08] LABS: Alanine Aminotransferase 26 U/L (12-78); Albumin/Globulin Ratio 1.4 (1.1-1.8); Aspartate Amino Transferase 32 U/L (17-59); Blood Urea Nitrogen 39 mg/dl (9-20); Carbon Dioxide 29 mmol/L (22.0-30.0); Estimated Glomerular Filt Rate 73 ml/min (>60); GFR (African American) 88 ML/MIN (>60); Globulin 2.9 g/dL (1.3-3.2); Total Protein,Serum 6.9 g/dl (6.3-8.2)
--- NOTE | 2025-01-16 10:08 | PC.NURSE ---
pt was given a urinal for when he needs to void and give a ua sample
[2025-01-16 10:09] LABS: Alkaline Phosphatase 76 U/L (38-126); Bilirubin,Total 0.9 mg/dl (0.2-1.3); Calcium 8.7 mg/dl (8.4-10.2); Glucose 198 mg/dl (74-100)
[2025-01-16 10:10] LABS: Lactate Venous 2.4 mmol/L (0.4-2.0); VBG PCO2 44.4 mmol/L (35-51); VBG PH 7.39 mmol/L (7.31-7.41); VBG PO2 41.2 mmol/L (28-40); VBG Total CO2 27.4 mmol/L (23-27)
[2025-01-16 10:18] LABS: Basophils % 0.2 % (0.1-2.0); Eosinophils % 0.1 % (0.1-12.0); Hematocrit 37.6 % (42.0-52.0); Hemoglobin 12.3 g/dL (14.1-18.0); Lymphocytes # 0.3 K/mm3 (0.7-4.5); Lymphocytes % 3.2 % (10-50); Mean Corpuscular HGB Conc 32.7 g/dL (31.8-35.4); Mean Corpuscular Hemoglobin 31.9 pg (27.0-31.2); Mean Corpuscular Volume 97.7 fl (80-94); Monocytes # 0.8 K/mm3 (0.1-1.0); Monocytes % 7.8 % (1.7-9.3); NT Pro Brain Natriuretic Pep. 3980 pg/mL (0-125); Neutrophils # 9.2 K/mm3 (1.8-7.8); Neutrophils % 87.5 % (37.0-80.0); Platelet Count 348 K/mm3 (142-424); Red Blood Count 3.85 M/mm3 (4.60-6.20); Red Cell Distribution Width 14.5 % (11.5-17.5); White Blood Count 10.6 K/mm3 (4.8-10.8)
[2025-01-16 10:21] LABS: Troponin I 0.01 ng/ml (0.00-0.034)
--- NOTE | 2025-01-16 10:21 | HMH.EDGENADL ---
Discharge Plan Disposition Patient Disposition: Home, Self-Care Prescriptions Prescriptions: No Action tamsulosin 0.4 mg capsule 0.4 mg PO DAILY Jardiance 10 mg tablet 10 mg PO DAILY hydrochlorothiazide 25 mg tablet 25 mg PO DAILY Patient Comments: TAKE ONE TABLET BY MOUTH EVERY DAY atorvastatin 40 mg tablet 40 mg PO HS omeprazole 40 mg capsule,delayed release(DR/EC) 40 mg PO DAILY levothyroxine 75 mcg tablet 75 mcg PO DAILYDM amitriptyline 25 mg tablet 100 mg PO HS tetracycline 250 mg tablet 250 mg PO QID 5 Days Qty: 20 0RF hydrocodone-acetaminophen 5-325 mg tablet 1 tab PO Q8H PRN (Reason: post op pain) Qty: 30 0RF bisoprolol fumarate 5 MG tablet 5 mg PO DAILY aspirin 81 mg Tablet,Chewable 81 mg PO DAILY potassium chloride 20 mEq tablet,ER particles/crystals 20 meq PO DAILY dexamethasone 4 mg tablet 20 mg PO WEEKLY Patient Comments: TAKE 10 TABLETS BY MOUTH ONCE WEEKLY losartan 100 mg tablet 100 mg PO DAILY acyclovir 800 mg tablet 800 mg PO BID Xarelto 20 mg tablet 20 mg PO QPMWITHMEAL Referrals Follow up/Referrals: Kai Shea MD [Primary Care Provider] - See instructions Activity Restrictions/Add. Instructions Additional Instructions/Restrictions: Follow-up with your mine engineering superintendent on Tuesday as discussed. If you develop new or worsening visual symptoms, such as vision loss, worsening blurry vision, or pain within the left eye, contact your mine engineering superintendent for earlier appointment or return to the emergency department for evaluation. If you develop any new or worsening symptoms, or if you become concerned for your health for any reason, return to the emergency department for evaluation Clinical Impressions Clinical Impression: Fall from standing, Multiple skin tears, Laceration of scalp, Blurred vision, left eye Instructions Patient Instructions: How to Prevent Falls, DI for Abrasion, DI for Minor Laceration Print Language Print Language: Italian Discharge ED Provider: Carlos Mccormick Adult HPI General Chief complaint: Fall Stated complaint: AO-Fall 0600-, pain in L shoulder, ribs, head Time Seen by Provider: 01/16/25 09:38 Mode of Arrival: Wheelchair Source of Information: Patient and Medical Record Description of Symptoms (Recalled from ER Triage Doc. by RN): Pt brought to ER by surgery staff d/t conern of injury for a fall this AM prior to surgery. He states that he fell into his walker at approx 6am. He is unsure if he had any LOC. He c/o pain to left knee, Left arm from wirst to shoulder, and left side of his hide. Pt's neighbor applied dressings to left arm and bandaid to head. Denies any new vision changes. He is unsure how/why he fell. Dr De Souza drained fluid off of pt's R knee yesterday, stated it looks so much better today . There is still pitting edema to RLE. There is also an abrasion to L knee. He also is on Xarelto for cardiac stents/surgery. Last dose was 01/15/25. History of Present Illness HPI narrative: Kaleb Swan is a 74y male with a past medical history of CABG, cardiac stents on Xarelto and aspirin, peripheral artery disease, coronary artery disease, hypertension who presents to the emergency department for complaints of a fall. Patient states that he is followed by Dr. De Souza and was getting up this morning and using his walker when he fell, hitting his left head on the dresser and then the floor. He denies any loss of consciousness but was unable to get up. He notes that he was scheduled to have surgery on his right knee this morning with Dr. De Souza for washout of the right knee. He had a friend who was able to get him up this morning and went to his appointment where he had an echocardiogram and then was sent here by Dr. De Souza and did not receive surgery. Patient is complaining of skin tears to his left upper extremity. He denies any preceding chest pain, palpitations, shortness of breath, neck pain. He reports some blurry vision in the left eye since the fall. Related Data Home Medications ?Medication ?Instructions ?Recorded ?Confirmed atorvastatin 40 mg tablet 40 mg PO HS 12/20/17 01/16/25 tamsulosin 0.4 mg capsule 0.4 mg PO DAILY 07/03/19 01/16/25 bisoprolol fumarate 5 mg tablet 5 mg PO DAILY 01/08/21 01/16/25 omeprazole 40 mg capsule,delayed 40 mg PO DAILY 02/16/21 01/16/25 release levothyroxine 75 mcg tablet 75 mcg PO DAILYDM 12/16/22 01/16/25 empagliflozin 10 mg tablet 10 mg PO DAILY 01/21/23 01/16/25 (Jardiance) aspirin 81 mg chewable tablet 81 mg PO DAILY 03/16/24 01/16/25 hydrochlorothiazide 25 mg tablet 25 mg PO DAILY 05/16/24 01/16/25 amitriptyline 25 mg tablet 100 mg PO HS 12/18/24 01/16/25 acyclovir 800 mg tablet 800 mg PO BID 01/01/25 01/16/25 dexamethasone 4 mg tablet 20 mg PO WEEKLY 01/01/25 01/16/25 losartan 100 mg tablet 100 mg PO DAILY 01/01/25 01/16/25 potassium chloride 20 mEq 20 meq PO DAILY 01/01/25 01/16/25 tablet,extended release(part/cryst) rivaroxaban 20 mg tablet (Xarelto) 20 mg PO QPMWITHMEAL 01/01/25 01/16/25 Previous Rx's ?Medication ?Instructions ?Recorded hydrocodone 5 mg-acetaminophen 325 1 tab PO Q8H PRN post op pain #30 01/15/25 mg tablet tabs tetracycline 250 mg tablet 250 mg PO QID 5 days #20 tabs 01/15/25 Allergies Allergy/AdvReac Type Severity Reaction Status Date / Time No Known Allergies Allergy Verified 01/15/25 11:40 [facility] Disclaimer: The information contained in this section may have been updated after the patient was seen, as this information can be updated by other users. Medical History Cataract GERD (gastroesophageal reflux disease) Hypothyroid Multiple myeloma Abnormal ankle brachial index (SARAY) Parkinson disease DM2 (diabetes mellitus, type 2) Chest pain CAD (coronary artery disease) Cardiomyopathy Bilateral leg pain PAD (peripheral artery disease) MIO (obstructive sleep apnea) Hyperlipidemia Hypertensive heart disease without heart failure Neuropathy Surgical History History of cataract surgery Hx of cholecystectomy AICD (automatic cardioverter/defibrillator) present History of colonoscopy History of heart bypass surgery Family History (Updated 01/15/25 @ 12:47 by French Bernal RN) Other Family history of diabetes mellitus Social History (Updated 01/15/25 @ 12:48 by French Bernal RN) Smoking Status: Never smoker alcohol intake: never substance use type: denies use current occupational status: employed Travel in the last 8 weeks: Inside the [place] household members: spouse housing: house 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: Yes Have you lived/traveled outside [place] in past 30 days?: No Contact w/someone who lives/traveled outside US past 30 days?: No Exposure to someone with infectious disease in past 14 days?: No Do you have a fever (greater than 100.4 F or 38 C)?: No Have you tested positive for COVID-19: No Exposed to someone with COVID-19 in past 14 days?: No Do you have a sore throat?: No Do you have a cough?: No Do you have any weakness?: No Do you have any diarrhea?: No Are you experiencing any unusual bleeding?: No Do you have any muscle aches/pain?: No Do you have any abdominal pain?: No Are you experiencing loss of taste or smell?: No Other Medical History Have you received the Flu Vaccine for this season: No Have you received the Pneumonia Vaccine: No ROS Obtained: Yes Systems reviewed as appropriate & no additional complaints except as documented Physical Exam General General appearance: alert and in no apparent distress Head Head exam: other (small, 1cm laceration to left scalp without active bleeding) Eye Eye exam: Present normal appearance, PERRL, EOMI and other (No hyphema.) ENT ENT exam: Present normal external ear exam Neck Neck exam: Present full ROM; Absent tenderness Chest Chest inspection: Present symmetric chest wall rise Respiratory Respiratory exam: Present normal lung sounds bilaterally; Absent respiratory distress, wheezes or stridor Cardiovascular Cardiovascular exam: Present regular rate and normal rhythm Abdominal Exam Abdominal exam: Present soft; Absent distention, tenderness or guarding exam: Present deferred Extremities Exam Extremities exam: Present normal inspection, tenderness and other (multiple skin tears to the LUE at the elbow, forearm, and dorsal wrist. Mild venous oozing at the elbow.) Expanded Lower Extremity Exam Right: Comment: Circumferential swelling to the right anterior knee without erythema Back Exam Back exam: Present normal inspection Neurological Exam Neurological exam: Present alert, oriented X3 and CN II-XII intact Psychiatric Psychiatric exam: Present normal affect Skin Skin exam: Present warm and dry Medical Decision Making Medical Records Screening: Per USPSTF and CDC recommendations, given the prevalence of disease in our region, it is our hospital?s policy to screen for HIV and viral Hepatitis for all patients aged 18 and over and those with ongoing risk factors. Ruddy Inquiry Pt receiving controlled substance: No Vital Signs: 01/16/25 09:30 01/16/25 09:33 01/16/25 10:00 Temperature 98.0 F Temperature Source Oral Pulse Rate 115 H 78 Pulse Rate [Right] 102 H Respiratory Rate 16 16 Blood Pressure 123/83 109/75 L Blood Pressure [Right Arm] 123/83 Blood Pressure Mean [Right Arm] 96 Blood Pressure Source Blood Pressure Source [Right Arm] Automatic Cuff 02 Sat by Pulse Oximetry 99 100 98 Oxygen Delivery Method Room Air Room Air Room Air 01/16/25 11:00 01/16/25 11:40 01/16/25 12:01 Temperature Temperature Source Pulse Rate 75 99 H 107 H Pulse Rate [Right] Respiratory Rate 16 13 12 Blood Pressure 115/76 138/90 102/78 L Blood Pressure [Right Arm] Blood Pressure Mean [Right Arm] Blood Pressure Source Blood Pressure Source [Right Arm] 02 Sat by Pulse Oximetry 100 98 99 Oxygen Delivery Method Room Air 01/16/25 12:30 01/16/25 13:31 01/16/25 13:37 Temperature 98.0 F Temperature Source Oral Pulse Rate 90 84 Pulse Rate [Right] Respiratory Rate 16 18 Blood Pressure 113/84 112/72 112/72 Blood Pressure [Right Arm] Blood Pressure Mean [Right Arm] Blood Pressure Source Automatic Cuff Blood Pressure Source [Right Arm] 02 Sat by Pulse Oximetry 99 Oxygen Delivery Method Room Air Room Air Lab Data Lab Results 01/16/25 09:40: WBC 10.6 D, RBC 3.85 L, Hgb 12.3 L, Hct 37.6 L, MCV 97.7 H, MCH 31.9 H, MCHC 32.7, RDW 14.5, Plt Count 348 D, MPV 9.0, Neut % (Auto) 87.5 H, Lymph % (Auto) 3.2 L, [place] % (Auto) 7.8, Eos % (Auto) 0.1, Baso % (Auto) 0.2, Neut # (Auto) 9.2 H, Lymph # (Auto) 0.3 L, [place] # (Auto) 0.8, Eos # (Auto) 0.0, Baso # (Auto) 0.0, Sodium 136, Potassium 4.0, Chloride 100, Carbon Dioxide 29, Anion Gap 11.0, BUN 39 H D, Creatinine 1.00, Estimated GFR 73, Est GFR ( Amer) 88, Glucose 198 H, Calcium 8.7, Total Bilirubin 0.9, AST 32 D, ALT 26 D, Alkaline Phosphatase 76, Troponin I 0.01, NT-Pro-B Natriuret Pep 3980 H, Total Protein 6.9, Albumin 4.0, Globulin 2.9, Albumin/Globulin Ratio 1.4 01/16/25 09:59: VBG pH 7.39, VBG pCO2 44.4, VBG pO2 41.2 H, VBG HCO3 26.0, VBG Total CO2 27.4 H, VBG O2 Saturation 72.0 H, VBG Base Excess 1.0, VBG Lactic Acid 2.4 H 01/16/25 10:33: Urine Color Yellow, Urine Appearance Clear, Urine pH 5.5, Ur Specific [place] 1.020, Urine Protein Negative, Urine Glucose (UA) >=1000, Urine Ketones 15, Urine Blood Negative, Urine Nitrate Negative, Urine Bilirubin Negative, Urine Urobilinogen 0.2, Ur Leukocyte Esterase Negative, Urine RBC None, Urine WBC None, Ur Squamous Epith Cells Occasional, Urine Bacteria Trace 01/16/25 12:48: Troponin I 0.01 01/16/25 09:40 01/16/25 09:40 Orders (Tests/Meds): ORDERS Category Date Time Status CT cervical spine wo con Stat Cat Scan 01/16/25 09:[address] head/brain wo con Stat Cat Scan 01/16/25 09:51 Completed CXR --portable [XR chest portable] Stat Exams 01/16/25 09:51 Completed Elbow XR left 2 views [XR elbow LT 2V] Stat Exams 01/16/25 09:54 Completed Forearm XR left 2 views [XR forearm LT 2V] Stat Exams 01/16/25 09:54 Completed POCUS Point of Care (ER Only) Stat Exams 01/16/25 12:04 Completed Wrist XR left 2 views [XR wrist LT 2V] Stat Exams 01/16/25 09:54 Completed BNP [NT Pro Brain Natriuretic Pep.] Stat Lab 01/16/25 09:40 Completed CBC w/Auto Diff [Complete Blood Count Auto Diff] Stat Lab 01/16/25 09:40 Completed CMP [Comprehensive Metabolic Panel] Stat Lab 01/16/25 09:40 Completed Troponin I Q3H Lab 01/16/25 12:48 Completed Troponin I Stat Lab 01/16/25 09:40 Completed UA [Urinalysis and Microscopic] Stat Lab 01/16/25 10:33 Completed VBG [Venous Blood Gas] Stat RT 01/16/25 09:59 Completed CA venous doppler LE RT Routine Y 01/16/25 11:21 Completed ECG Data Tracing #1: I reviewed this ECG and interpreted as documented below: Atrial fibrillation with a ventricular rate of 97 bpm. Right bundle branch block but no significant ST elevation or depression. Medical Decision Narrative: Kaleb Swan is a 74y male with a past medical history of CABG, AICD, afib, cardiac stents on Xarelto and aspirin, peripheral artery disease, coronary artery disease, hypertension who presents to the emergency department for complaints of a fall. Patient states that he is followed by Dr. De Souza and was getting up this morning and using his walker when he fell, hitting his left head on the dresser and then the floor. He denies any loss of consciousness but was unable to get up. He notes that he was scheduled to have surgery on his right knee this morning with Dr. De Souza for washout of the right knee. He had a friend who was able to get him up this morning and went to his appointment where he had an echocardiogram and then was sent here by Dr. De Souza and did not receive surgery. Patient is complaining of skin tears to his left upper extremity. He denies any preceding chest pain, palpitations, shortness of breath, neck pain. He reports some blurry vision in the left eye since the fall. On arrival, patient is tachycardic but normotensive, maintaining appropriate oxygenation on room air, afebrile. Physical exam, as stated above, revealed a nontoxic-appearing male who is alert and oriented. He has multiple skin tears to his left upper extremity at the elbow, forearm and dorsal wrist. Mild venous oozing at the forearm and some tenderness throughout these areas. He has a small 1 cm laceration over the left scalp but no midline C-spine tenderness. Abdomen is soft, nontender and nondistended. Cardiopulmonary exam is unremarkable. Patient reports that his tetanus shot is up-to-date. Differential diagnosis includes, but is not limited to: Intracranial hemorrhage, cervical spine injury, cardiac arrhythmia, electrolyte derangement, ACS, AICD malfunction, pneumonia, fracture, soft tissue injury, among others. Workup in the emergency department included: CT head without contrast, CT C-spine without contrast, wound care ultrasound ocular, EKG, chest x-ray, left elbow, left forearm, left wrist x-rays, CBC, CMP, VBG, urinalysis, BNP, troponin, lactic acid. EKG demonstrated atrial fibrillation with right bundle branch block but no ST elevation or depression. CT imaging was interpreted by me personally. No acute intracranial hemorrhage or skull fractures. No cervical spine fractures or malalignment. See radiology report for final details. Chest x-ray was also interpreted by me personally without acute cardiopulmonary process. Left upper extremity x-rays also interpreted by me personally with no evidence of fracture. See radiology reports for details. Laboratory studies with no leukocytosis, hemoglobin mildly below normal at 12.3 with hematocrit of 37.6. Platelets within normal range. VBG with no pH derangements but lactate mildly elevated at 2.4. No significant electrolyte derangements. Creatinine within normal limits at 1 and BUN mildly elevated at 39. Liver enzymes within normal limits. Troponin negative at 0.01 x 2. proBNP elevated at 3980 but this is near patient's baseline. Urinalysis without evidence of infection or blood. Ocular ultrasound as stated above was performed on the left eye to evaluate for any retinal detachment, vitreous detachment or vitreous hemorrhage as a source of his blurry vision in the setting of trauma, however this was negative for any cute findings. See procedure note above. Cardiology team was consulted to interrogate his pacemaker. They evaluated the patient and interrogated his pacemaker and determined that it is functioning appropriately without any evidence of misfiring. Cardiology also ordered a right lower quadrant venous ultrasound due to the swelling in his leg to rule out any DVT. This was negative. Patient's wounds on his left upper extremity were repaired using Steri-Strips as his skin is too thin to withstand sutures. Surgicel was applied over the elbow with nonabsorbable gauze and Kerlix. The patient's 1 cm laceration over his left scalp was repaired using Dermabond. Patient stated that he has blurry vision in his left eye is new since the fall, and he is noted to have decreased visual acuity on the left but extraocular movements are intact as well as pupils being equal round and reactive. No hyphema is noted. [id number] ultrasound did not demonstrate any significant findings. Patient does note that he has had cataract surgery on 1 eye in the past and is supposed to have it on the other but does not remember which I needs the surgery. Is felt the patient would benefit from close outpatient follow-up regarding his vision changes that could be related to the trauma versus cataract. Patient was offered outpatient follow-up with ophthalmology, however patient declined stating that he did not want to be seen by physicians. He preferred to see his mine engineering superintendent in [place]. He was able to call his mine engineering superintendent today who stated that he can get him an appointment at 4 PM on Tuesday but that he could get him in sooner if his vision worsened before then. Dr. De Souza's note from today was reviewed by me personally. It is noted that he was supposed to have arthroscopic debridement of the knee following aspiration in clinic yesterday. However, due to patient's traumatic injuries, he was sent to the emergency department prior to surgery today and it was canceled at this time. It appears that the patient was found to have 75,000 nucleated cells however noted to have 45,500 red blood cells. Crystals were present on previous aspiration and on this aspiration calcium phosphate versus steroid crystals. Patient's previous cleanout fluid did not grow bacteria after 5 days of growth and Gram stain was negative. On the most recent aspiration, Gram stain is negative and cultures are pending. Per Dr. De Souza, will arrange close outpatient follow-up and ordered antibiotics and will make clinical decision in regards to irrigation debridement based on clinical picture at that time. Given the patient's unremarkable workup here in the emergency department, is felt that he is appropriate for discharge at this time with plan as stated above. Return precautions were given. He was instructed to keep his wounds clean by using gentle soap and water and to return if signs of infection occur. All questions were answered. He demonstrated understanding and was in agreement with this plan. He was then discharged from the emergency department in stable condition. Procedures Laceration Laceration 1: Site: upper extremity Side (If applicable): left Size (cm): 2 Description: other (skin tear) Depth: simple, single layer Skin layer closed with: other (steri-strips x1) Laceration 2: Site: upper extremity Side (If applicable): left (forearm/elbow) Size (cm): 1 Description: other (skin tear) Depth: simple, single layer Skin layer closed with: other (steri-strip x1) Laceration 3: Site: upper extremity Side (If applicable): left (dorsal wrist) Size (cm): 1 Description: other (skin tear) Depth: simple, single layer Skin layer closed with: other (steri-strip x1) Laceration 4: Site: scalp Side (If applicable): left Size (cm): 1 Description: linear Depth: simple, single layer Pre-repair: irrigated extensively Skin layer closed with: Dermabond Limited Ultrasound Indication:: Limited ocular ultrasound Indication: -Eye/orbital trauma -Vision changes Identified structures: -Left eye Findings: Left eye: Retina: Normal Lens: Normal Vitreous body: anechoic Optic nerve sheath diameter: Normal (<6mm) Foreign body: absent Impression: Left eye: -Normal ocular ultrasound Images were saved to permanent archive The study was technically adequate CPT 90137-53 This study was performed by me, and I personally interpreted all images/videos. Based on my clinical judgement, these images were [adequate/inadequate] and [did/did not] necessitate further imaging. Critical Care Critical Care Time Critical Care Time: Yes Attestation: On 01/16/25, the high probability of a clinically significant, sudden or life threatening deterioration of the following system(s) required my full and direct attention, intervention and personal management. The time I documented below is in addition to time spent performing reported procedures but includes the following listed in this critical care notation. Total Time Total Critical Care Time: 35
[2025-01-16 10:37] LABS: Microscopic, Urine URINE MICROSCOPIC (MICROSCOPIC)
[2025-01-16 10:45] LABS: Appearance,Urine CLEAR (Clear); Bilirubin,Urine Negative (Negative); Blood, Urine Negative (Negative); Color,Urine YELLOW (Yellow); Glucose,Urine (UA) >=1000 (Negative); Ketones,Urine 15 (Negative); Leukocyte Esterase,Urine Negative (Negative); Nitrate,Urine Negative (Negative); PH,Urine 5.5 (5.0-8.5); Protein,Urine Negative (Negative); Urobilinogen,Urine 0.2 EU/dl (0.2)
[2025-01-16 11:01] LABS: Bacteria,Urine Trace /lpf; Squamous Epithelial Cell,Urine Occasional #/hpf (0-5)
--- NOTE | 2025-01-16 11:13 | PC.NURSE ---
CARDIOLOGY AT BEDSIDE
--- NOTE | 2025-01-16 11:21 | CA_ITS ---
FINAL REPORT TECHNIQUE: Multiple transverse and longitudinal images were performed of right the femoral-popliteal deep venous system with augmentation and compression maneuvers. CLINICAL HISTORY: AO fall 0600, pain in left shoulder and right knee. Patient had fluid drained off right knee yesterday 01/15/25. He was scheduled for a scope of the right knee today but is on hold secondary to fall this morning. Patient takes Xarelto, with last dose this morning and 81 mg ASA daily taken last night. hx CABG, CAD, HTN, HLD, DM, multiple myeloma, Parkinsons disease. FINDINGS: Right lower extremity duplex ultrasound demonstrates normal flow in the deep venous system. There is no abnormal echogenicity to suggest thrombus. There is normal compression and augmentation. There is a complex Crabtree's cyst with debris measuring up to 3.7 cm. IMPRESSION: No evidence of right DVT. Complex Crabtree's cyst as above. Reviewed, Interpreted and Dictated by Katlin Chiang MD Transcribed by Lyric Hodge Authenticated and [facility]
--- NOTE | 2025-01-16 12:02 | PC.NURSE ---
Visual acuity: Left eye- cannot read chart, everything is blurry Right eye- 20/50
[2025-01-16 13:20] LABS: Troponin I 0.01 ng/ml (0.00-0.034)
--- NOTE | 2025-01-16 13:51 | PC.NURSE ---
DR LIANG AT BEDSIDE TO UPDATE PT AND FAMILY
[2025-01-16 14:09] LABS: Reflex Lactic Add Lactic Reflex
== END 2025-01-16 13:58 | disposition home or self-care (01) ==
PROVIDERS: Emergency Provider Student in an Organized Health Care Education/Training Program; PCP Family Medicine
DX: S01.01XA Laceration without foreign body of scalp, initial encounter (principal); T14.8XXA Other injury of unspecified body region, initial encounter; M25.532 Pain in left wrist; M25.562 Pain in left knee; M25.512 Pain in left shoulder; R60.0 Localized edema; H53.8 Other visual disturbances; W01.198A Fall on same level from slipping, tripping and stumbling with subsequent striking against other object, initial encounter; Y93.89 Activity, other specified; Y92.009 Unspecified place in unspecified non-institutional (private) residence as the place of occurrence of the external cause
CPT/HCPCS: 12002; 70450; 71045; 72125; 73070; 73090; 73100; 80053; 81001; 82803; 83880; 84484; 85025; 93005; 93971; 99291

== ENCOUNTER 2025-01-23 06:54 | Day surgery (SDC) | payer MEDICARE, BC, SELFPAY ==
[2025-01-23] VITALS (10 sets, daily range): BP systolic 107–135; BP diastolic 60–93; PULSE 89–104; RESP 16–18; TEMP 36.3–43; O2SAT 94–100; BMI 27.5
[2025-01-23] MEDS: LACTATED RINGERS 1000ML 1,000 ML 100 ML IV (08:18)
[2025-01-23] MEDS: CEFAZOLIN SODIUM 2 GM in 0.9 % SODIUM CHLORIDE 100 ML IV (08:30)
--- NOTE | 2025-01-23 09:45 | P.OP_ITS ---
Date of procedure: 01/23/25 Pre-op Diagnosis:: Right knee septic arthritis Post-op Diagnosis:: Same Procedure performed:: Right knee arthroscopic irrigation and debridement Surgeon:: Primo De Souza DO Track Greaser(s):: Codey LEIVA SUPERVISOR REAL ESTATE OFFICE:: Abimael Pepe Anesthesia: GETA Estimated blood loss (mL): 0 Clinical Note:: 74-year-old male with persistent effusion with Staph epidermidis infection treated with irrigation and debridement oral antibiotics with recurrent effusion presents today for repeat irrigation arthroscopic debridement Operative findings:: Cloudy knee effusion Operative note:: Patient identified preoperatively. Right knee marked with yes my initials. Transferred operative suite placed upon the operating bed. General anesthesia administered and airway was secured. Right lower extremity prepped and draped within the knee thomson. Once prepped and draped final operative timeout performed to identify proper patient procedure and extremity. Everyone involved in case agreed. There is no counter indications to beginning. He did receive preoperative antibiotics Ancef. Marking pen was used to rufus bony landmarks knee and standard portal sites. Esmarch was not used because of the infection but tourniquet was inflated to 300 mmHg. Skin knife was used incise standard anterior lateral portal and blunt trocar placed in the patellofemoral joint exchange with a camera swept directly into the medial joint line where the anterior medial portal was made. The sucker shaver was placed there was evidence of thickened synovial tissue in the patellofemoral joint anterior compartment this was debrided with a sucker shaver irrigation lavage was performed in each compartment of the knee medial and lateral joint lines patellofemoral joint each of the first 9000 cc had 1 g of vancomycin per 3000 cc bag. Irrigation was completed total of 1200 cc of irrigation. At the end the procedure the return on the fluid was clear debridement was completed with the sucker shaver intra-articularly for removing thickened abnormal appearing synovium. Once complete instruments were removed skin was closed with nylon stitch sterile dressing placed from toe to thigh patient waken anesthesia taken recovery in stable condition. Patient suffered a fall lacerating his left forearm and cutting the skin several places these dressings were redressed with Tegaderm and Telfa dressings today. Condition: stable Disposition: PACU Specimens:: Cultures taken fluid sent for Gram stain and culture Complications:: None apparent
--- NOTE | 2025-01-23 10:03 | P.PNANES_ITS ---
[facility] Anesthesia Record Part I Anesthesia Record I Intake, IV Amount: 800 Hydration: Adequate Estimated blood loss (mL): 10 Urine output (mL): 0 Blood Products used (#): none Blood Pressure: 135/80 SaO2: 95 Pulse Rate: 93 Airway Patency: Patent Respiratory Rate: 16 Temperature: 97.4 F Patient is:: Drowsy and Stable Stable to PACU at:: 09:51
--- NOTE | 2025-01-23 10:05 | P.PNANES_ITS ---
[facility] Disclaimer: The information contained in this section may have been updated after the patient was seen, as this information can be updated by other users. Medical History (Updated 01/23/25 @ 08:04 by Kathrine Salazar RN) Presence of combination internal cardiac defibrillator (ICD) and pacemaker Cataract GERD (gastroesophageal reflux disease) Hypothyroid Multiple myeloma Abnormal ankle brachial index (SARAY) Parkinson disease DM2 (diabetes mellitus, type 2) Chest pain CAD (coronary artery disease) Cardiomyopathy Bilateral leg pain PAD (peripheral artery disease) MIO (obstructive sleep apnea) Hyperlipidemia Hypertensive heart disease without heart failure Neuropathy Surgical History History of cataract surgery Hx of cholecystectomy AICD (automatic cardioverter/defibrillator) present History of colonoscopy History of heart bypass surgery Family History Other Family history of diabetes mellitus Social History (Updated 01/23/25 @ 08:04 by Kathrine Salazar RN) Smoking Status: Never smoker alcohol intake: never substance use type: denies use current occupational status: employed Travel in the last 8 weeks: None household members: spouse housing: house 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: Yes Have you lived/traveled outside US in past 30 days?: No Contact w/someone who lives/traveled outside US past 30 days?: No Exposure to someone with infectious disease in past 14 days?: No Do you have a fever (greater than 100.4 F or 38 C)?: No Have you tested positive for COVID-19: No Exposed to someone with COVID-19 in past 14 days?: No Do you have a sore throat?: No Do you have a cough?: No Do you have any weakness?: No Are you experiencing any nausea/vomitting?: No Do you have any diarrhea?: No Are you experiencing any unusual bleeding?: No Do you have any muscle aches/pain?: No Do you have any abdominal pain?: No Are you experiencing loss of taste or smell?: No [facility] Anesthesia Checklist Patient Identification Patient Identification: Arm Band Structural Data Admitted From: Home Planned Operative Procedure/s: Arthroscopic I&D Right Knee Consent for Planned Operative Procedure(s) Verified: Yes Verified Documents: Surgical Consent and History and Physical NPO Status Verified Time NPO: 00:00 Additional verifications Anesthesia Reactions: No Hx Blood Transfusions: No Blood Transfusion Reaction: No Airway Assessment Mallampati Score:: Class II C-Spine Mobility Assessed: Yes TMJ Mobility Assessed: Yes Dentition: Good Dentition Neurological Assessment Level of Consciousness: Awake, Alert and Appropriate Anesthesia Plan Anesthesia Risk discussed: Yes Anesthesia Plan: Verified ASA Class: IV Anesthesia Type: General
[2025-01-23 16:02] LABS: POC Glucose,Bedside 162 (70-110)
--- NOTE | 2025-01-24 15:41 | P.PNANES_ITS ---
[facility] Anesthesia Record Part II Anesthesia Record Part II Discharge Time: 10:21 Destination: Surgical Day Care (OP Surgery) PACU nurse assessment reviewed?: Yes Patient Condition:: Good Anesthesia Complications:: None Swallowing reflex intact?: Yes Airway Patency: Patent Cyanosis?: No Blood Pressure: 114/73 SaO2: 96 Respiratory Rate: 16 Pulse Rate: 96 Temperature: 97.4 F Mental Status: Alert & Oriented Pain level:: 0 Nausea and/or vomitting:: None Intake, IV Amount: 0 Hydration: Adequate
[2025-01-24 15:42] VITALS: BP 114/73; PULSE 96; RESP 16; TEMP 36.3; O2SAT 96
== END 2025-01-23 11:00 | disposition home or self-care (01) ==
PROVIDERS: PCP Family Medicine; Visit Provider Orthopaedic Surgery
PROC: (CPT 29870; principal; 2025-01-23 08:30)
DX: M00.061 Staphylococcal arthritis, right knee (principal); B95.8 Unspecified staphylococcus as the cause of diseases classified elsewhere; E11.9 Type 2 diabetes mellitus without complications
CPT/HCPCS: 29871; 82962; 87070; 87075; 87205; J0690; J1100; J2250; J2405; J3010; J3370; J7120

== ENCOUNTER 2025-02-12 08:03 | Outpatient (CLI) | payer MEDICARE, BC, SELFPAY ==
[2025-02-12 08:32] LABS: Eosinophils % 0.6 % (0.1-12.0); Hematocrit 36.6 % (42.0-52.0); Hemoglobin 11.7 g/dL (14.1-18.0); Lymphocytes # 0.4 K/mm3 (0.7-4.5); Lymphocytes % 11.5 % (10-50); Mean Corpuscular Hemoglobin 32.1 pg (27.0-31.2); Mean Corpuscular Volume 100.5 fl (80-94); Mean Platelet Volume 9.3 fl (7.4-10.4); Monocytes # 0.2 K/mm3 (0.1-1.0); Monocytes % 7.1 % (1.7-9.3); Neutrophils # 2.5 K/mm3 (1.8-7.8); Neutrophils % 79.2 % (37.0-80.0); Nucleated Red Blood Cells # 0 10^3/uL; Nucleated Red Blood Cells % 0 %; Platelet Count 141 K/mm3 (142-424); Red Blood Count 3.64 M/mm3 (4.60-6.20); Red Cell Distribution Width 15.9 % (11.5-17.5); Red Cell Distribution Width-SD 58.3 fL; White Blood Count 3.1 K/mm3 (4.8-10.8)
--- NOTE | 2025-02-12 08:32 | PC.NURSE ---
0822- labs drawn from amb orders via butterfly needle in right ac. needle removed and coban applied. pt tolerated well.
[2025-02-12 08:36] LABS: Chloride 102 mmol/L (98-107); Potassium 3.6 mmoL/L (3.5-5.1); Sodium 140 mmol/L (136-145)
[2025-02-12 08:39] LABS: Alanine Aminotransferase 23 U/L (12-78); Albumin/Globulin Ratio 1.4 (1.1-1.8); Alkaline Phosphatase 88 U/L (38-126); Anion Gap 10.6 mEq/L (5-15); Aspartate Amino Transferase 25 U/L (17-59); Bilirubin,Total 0.7 mg/dl (0.2-1.3); Blood Urea Nitrogen 21 mg/dl (9-20); Carbon Dioxide 31 mmol/L (22.0-30.0); Estimated Glomerular Filt Rate 73 ml/min (>60); GFR (African American) 88 ML/MIN (>60); Globulin 2.8 g/dL (1.3-3.2); Total Protein,Serum 6.8 g/dl (6.3-8.2)
[2025-02-12 08:40] LABS: Calcium 8.8 mg/dl (8.4-10.2); Glucose 139 mg/dl (74-100)
[2025-02-12 08:46] LABS: C-Reactive Protein 1.9 mg/L (0-4)
[2025-02-12 08:54] LABS: Erythrocyte Sedimentation Rate 33 mm/hr (0-20)
== END 2025-02-12 08:24 | disposition home or self-care (01) ==
LOC: INF 08:04
PROVIDERS: Physician Assistant Surgical; PCP Family Medicine; Visit Provider Internal Medicine Medical Oncology
DX: M25.461 Effusion, right knee (principal); M00.061 Staphylococcal arthritis, right knee; D47.2 Monoclonal gammopathy
CPT/HCPCS: 36415; 80053; 82784; 83883; 84155; 85025; 85651; 86140

== ENCOUNTER 2025-03-14 10:02 | Outpatient (CLI) | payer MEDICARE, BC, SELFPAY ==
[2025-03-14 10:49] LABS: Basophils % 0.7 % (0.1-2.0); Eosinophils # 0.1 Kmm3 (0.0-0.4); Eosinophils % 0.9 % (0.1-12.0); Hematocrit 43.8 % (42.0-52.0); Hemoglobin 14.2 g/dL (14.1-18.0); Immature Granulocytes # 0.02 10^3uL; Immature Granulocytes % 0.4 %; Lymphocytes # 0.6 K/mm3 (0.7-4.5); Lymphocytes % 11.4 % (10-50); Mean Corpuscular HGB Conc 32.4 g/dL (31.8-35.4); Mean Corpuscular Hemoglobin 32.3 pg (27.0-31.2); Mean Corpuscular Volume 99.5 fl (80-94); Mean Platelet Volume 9.7 fl (7.4-10.4); Monocytes # 0.4 K/mm3 (0.1-1.0); Monocytes % 7.9 % (1.7-9.3); Neutrophils # 4.3 K/mm3 (1.8-7.8); Neutrophils % 78.7 % (37.0-80.0); Nucleated Red Blood Cells # 0 10^3/uL; Nucleated Red Blood Cells % 0 %; Platelet Count 171 K/mm3 (142-424); Red Cell Distribution Width 15.2 % (11.5-17.5); Red Cell Distribution Width-SD 56.5 fL; White Blood Count 5.4 K/mm3 (4.8-10.8)
[2025-03-14 11:16] LABS: Alanine Aminotransferase 16 U/L (12-78); Albumin Level 4.8 g/dl (3.5-5.0); Alkaline Phosphatase 67 U/L (38-126); Aspartate Amino Transferase 24 U/L (17-59); Bilirubin,Direct 0.2 mg/dl (0.0-0.4); Bilirubin,Indirect 0.6 mg/dL (0.0-0.9); Bilirubin,Total 0.8 mg/dl (0.2-1.3); Bilirubin,Unconjugated 0.5 mg/dL (0.0-1.1); Chol/HDL Ratio 3.1 (1-3.5); Cholesterol 95 mg/dl (140-200); HDL Cholesterol 31 mg/dl (40-60); Magnesium 1.9 mg/dl (1.6-2.3); Total Protein,Serum 6.7 g/dl (6.3-8.2); Triglycerides 113 mg/dl (30-150); VLDL Cholesterol 23 mg/dL (0-40)
[2025-03-14 11:17] LABS: Alanine Aminotransferase 17 U/L (12-78); Albumin/Globulin Ratio 2.6 (1.1-1.8); Alkaline Phosphatase 81 U/L (38-126); Aspartate Amino Transferase 21 U/L (17-59); Bilirubin,Total 0.7 mg/dl (0.2-1.3); Blood Urea Nitrogen 38 mg/dl (9-20); Calcium 9.7 mg/dl (8.4-10.2); Carbon Dioxide 27 mmol/L (22.0-30.0); Chloride 103 mmol/L (98-107); Estimated Glomerular Filt Rate 73 ml/min (>60); GFR (African American) 88 ML/MIN (>60); Globulin 1.9 g/dL (1.3-3.2); Glucose 150 mg/dl (74-100); Sodium 140 mmol/L (136-145); Total Protein,Serum 6.9 g/dl (6.3-8.2)
[2025-03-14 11:26] LABS: Direct LDL Cholesterol 46.76 mg/dL (100-129)
[2025-03-14 11:33] LABS: Free T4 (Free Thyroxine) 1.22 ng/dl (0.78-2.19)
[2025-03-14 12:01] LABS: Anion Gap 14.2 mEq/L (5-15); Potassium 4.2 mmoL/L (3.5-5.1)
[2025-03-15 14:11] LABS: Albumin 4.1 g/dL (2.9-4.4); Alpha-1-Globulin 0.3 g/dL (0.0-0.4); Alpha-2-Globulin 0.7 g/dL (0.4-1.0); Gamma Globulin 0.7 g/dL (0.4-1.8); Protein, Total 6.8 g/dL (6.0-8.5)
[2025-03-15 15:42] LABS: Free Kappa Lt Chains 12.1 mg/L (3.3-19.4); Free Lambda Lt Chains 6.7 mg/L (5.7-26.3)
[2025-03-18 16:51] LABS: Immunoglobulin A, Qn 90 mg/dL (61-437); Immunoglobulin G, Qn 634 mg/dL (603-1613); Immunoglobulin M, Qn 84 mg/dL (15-143)
== END 2025-03-14 23:59 | disposition home or self-care (01) ==
PROVIDERS: Internal Medicine Medical Oncology; PCP Family Medicine; Visit Provider Physician Assistant
DX: I25.10 Atherosclerotic heart disease of native coronary artery without angina pectoris (principal); I11.9 Hypertensive heart disease without heart failure; I42.9 Cardiomyopathy, unspecified; I73.9 Peripheral vascular disease, unspecified; E11.42 Type 2 diabetes mellitus with diabetic polyneuropathy; E78.49 Other hyperlipidemia; D47.2 Monoclonal gammopathy
CPT/HCPCS: 36415; 80053; 80061; 80076; 82784; 83735; 83883; 84155; 84165; 84439; 84443; 85025; 86334

== ENCOUNTER 2025-03-19 10:00 | Outpatient (CLI) | payer MEDICARE, BC, SELFPAY | END 2025-03-19 23:59 | disposition home or self-care (01) | LOC: RAD 10:01 | PROVIDERS: PCP Family Medicine; Visit Provider Orthopaedic Surgery | DX: M25.461 Effusion, right knee (principal); M00.061 Staphylococcal arthritis, right knee ==

== ENCOUNTER 2025-03-26 08:42 | Outpatient (CLI) | payer MEDICARE, BC, SELFPAY ==
--- NOTE | 2025-03-26 08:46 | PC.NURSE ---
0846-collected labs via venipuncture stick in right ac with butterfly needle; pt to oncology appt.
[2025-03-26 09:13] LABS: Basophils % 0.7 % (0.1-2.0); Eosinophils # 0.1 Kmm3 (0.0-0.4); Eosinophils % 1.6 % (0.1-12.0); Hemoglobin 13.8 g/dL (14.1-18.0); Immature Granulocytes # 0.02 10^3uL; Immature Granulocytes % 0.5 %; Lymphocytes # 0.5 K/mm3 (0.7-4.5); Lymphocytes % 10.9 % (10-50); Mean Corpuscular HGB Conc 32.1 g/dL (31.8-35.4); Mean Corpuscular Hemoglobin 31.7 pg (27.0-31.2); Mean Corpuscular Volume 98.9 fl (80-94); Mean Platelet Volume 9.7 fl (7.4-10.4); Monocytes # 0.3 K/mm3 (0.1-1.0); Monocytes % 7.1 % (1.7-9.3); Neutrophils # 3.5 K/mm3 (1.8-7.8); Neutrophils % 79.2 % (37.0-80.0); Nucleated Red Blood Cells # 0 10^3/uL; Nucleated Red Blood Cells % 0 %; Platelet Count 161 K/mm3 (142-424); Red Blood Count 4.35 M/mm3 (4.60-6.20); Red Cell Distribution Width 14.5 % (11.5-17.5); Red Cell Distribution Width-SD 53.2 fL; White Blood Count 4.4 K/mm3 (4.8-10.8)
[2025-03-26 09:24] LABS: MANUAL DIFFERENTIAL MANUAL DIFFERENTIAL (MANUAL DIFF)
[2025-03-26 09:25] LABS: Alanine Aminotransferase 17 U/L (12-78); Albumin/Globulin Ratio 1.9 (1.1-1.8); Alkaline Phosphatase 96 U/L (38-126); Anion Gap 10.1 mEq/L (5-15); Aspartate Amino Transferase 18 U/L (17-59); Bilirubin,Total 0.7 mg/dl (0.2-1.3); Blood Urea Nitrogen 22 mg/dl (9-20); Carbon Dioxide 28 mmol/L (22.0-30.0); Chloride 107 mmol/L (98-107); Estimated Glomerular Filt Rate 65 ml/min (>60); GFR (African American) 79 ML/MIN (>60); Globulin 2.1 g/dL (1.3-3.2); Glucose 176 mg/dl (74-100); Potassium 4.1 mmoL/L (3.5-5.1); Sodium 141 mmol/L (136-145); Total Protein,Serum 6.1 g/dl (6.3-8.2)
[2025-03-26 10:43] LABS: Eosinophils % 3 % (0-3); Lymphocytes % 15 % (10-50); Monocytes % 8 % (2-9); Neutrophils % 74 % (42-76); Platelet Estimate Normal; RBC Morphology Normal; Total Cells Counted 100
--- NOTE | 2025-03-26 10:51 | XR_ITS ---
FINAL REPORT TECHNIQUE: Chest PA & Lateral CLINICAL HISTORY: Myeloma Shortness of breath x6 months COMPARISON: 01/16/2025 FINDINGS: 2 views of the chest were performed. There is mild cardiomegaly. Sternotomy wires are noted. The mediastinum is otherwise within normal limits. There is no acute cardiopulmonary process. There are trace bilateral pleural effusions. There is no pneumothorax. The bony thorax appears intact. IMPRESSION: Trace bilateral pleural effusions. Reviewed, Interpreted and Dictated by Jim Bertrand MD Transcribed by Leida Beltran Authenticated and [facility]
[2025-03-27 10:45] LABS: NT Pro Brain Natriuretic Pep. 5600 pg/mL (0-125)
[2025-03-27 17:21] LABS: Albumin 3.7 g/dL (2.9-4.4); Alpha-1-Globulin 0.3 g/dL (0.0-0.4); Alpha-2-Globulin 0.8 g/dL (0.4-1.0); Free Kappa Lt Chains 11.9 mg/L (3.3-19.4); Free Lambda Lt Chains 8.9 mg/L (5.7-26.3); Gamma Globulin 0.6 g/dL (0.4-1.8); Protein, Total 6.4 g/dL (6.0-8.5)
[2025-03-28 17:42] LABS: Immunoglobulin A, Qn 83 mg/dL (61-437); Immunoglobulin G, Qn 634 mg/dL (603-1613); Immunoglobulin M, Qn 64 mg/dL (15-143)
== END 2025-03-26 09:30 | disposition home or self-care (01) ==
LOC: INF 08:44
PROVIDERS: Physician Assistant; PCP Family Medicine; Visit Provider Internal Medicine Medical Oncology
DX: D47.2 Monoclonal gammopathy (principal); I42.9 Cardiomyopathy, unspecified
CPT/HCPCS: 36415; 71046; 80053; 82784; 83880; 83883; 84155; 84165; 85007; 85025; 86334

== ENCOUNTER 2025-04-05 09:11 | Outpatient (CLI) | payer MEDICARE, BC, SELFPAY ==
[2025-04-05 10:02] LABS: Basophils % 0.7 % (0.1-2.0); Eosinophils # 0.1 Kmm3 (0.0-0.4); Eosinophils % 1.2 % (0.1-12.0); Hematocrit 43.2 % (42.0-52.0); Hemoglobin 13.7 g/dL (14.1-18.0); Immature Granulocytes # 0.01 10^3uL; Immature Granulocytes % 0.2 %; Lymphocytes # 0.5 K/mm3 (0.7-4.5); Mean Corpuscular HGB Conc 31.7 g/dL (31.8-35.4); Mean Corpuscular Hemoglobin 30.7 pg (27.0-31.2); Mean Corpuscular Volume 96.9 fl (80-94); Mean Platelet Volume 9.2 fl (7.4-10.4); Monocytes # 0.3 K/mm3 (0.1-1.0); Neutrophils # 3.2 K/mm3 (1.8-7.8); Neutrophils % 76.9 % (37.0-80.0); Nucleated Red Blood Cells # 0 10^3/uL; Nucleated Red Blood Cells % 0 %; Platelet Count 141 K/mm3 (142-424); Red Blood Count 4.46 M/mm3 (4.60-6.20); Red Cell Distribution Width 13.9 % (11.5-17.5); Red Cell Distribution Width-SD 49.5 fL; White Blood Count 4.2 K/mm3 (4.8-10.8)
[2025-04-05 10:07] LABS: MANUAL DIFFERENTIAL MANUAL DIFFERENTIAL (MANUAL DIFF)
[2025-04-05 10:41] LABS: Erythrocyte Sedimentation Rate 7 mm/hr (0-20)
[2025-04-05 10:43] LABS: Alanine Aminotransferase 15 U/L (12-78); Albumin Level 4.3 g/dl (3.5-5.0); Alkaline Phosphatase 91 U/L (38-126); Anion Gap 8.8 mEq/L (5-15); Aspartate Amino Transferase 26 U/L (17-59); Bilirubin,Direct 0.2 mg/dl (0.0-0.4); Bilirubin,Indirect 0.5 mg/dL (0.0-0.9); Bilirubin,Total 0.7 mg/dl (0.2-1.3); Bilirubin,Unconjugated 0.5 mg/dL (0.0-1.1); Blood Urea Nitrogen 21 mg/dl (9-20); Calcium 9.1 mg/dl (8.4-10.2); Carbon Dioxide 29 mmol/L (22.0-30.0); Chloride 105 mmol/L (98-107); Cholesterol 100 mg/dl (140-200); Estimated Glomerular Filt Rate 73 ml/min (>60); GFR (African American) 88 ML/MIN (>60); Glucose 155 mg/dl (74-100); HDL Cholesterol 33 mg/dl (40-60); Magnesium 1.7 mg/dl (1.6-2.3); Potassium 3.8 mmoL/L (3.5-5.1); Sodium 139 mmol/L (136-145); Total Protein,Serum 6.3 g/dl (6.3-8.2); Triglycerides 100 mg/dl (30-150); VLDL Cholesterol 20 mg/dL (0-40)
[2025-04-05 10:49] LABS: C-Reactive Protein 5.7 mg/L (0-4)
[2025-04-05 10:54] LABS: NT Pro Brain Natriuretic Pep. 4990 pg/mL (0-125)
[2025-04-05 10:55] LABS: Direct LDL Cholesterol 42.21 mg/dL (100-129)
[2025-04-05 11:15] LABS: Thyroid Stimulating Hormone 2.82 uIU/mL (0.465-4.68)
[2025-04-05 11:31] LABS: Eosinophils % 1 % (0-3); Lymphocytes % 16 % (10-50); Monocytes % 6 % (2-9); Neutrophils % 77 % (42-76); Platelet Estimate Normal; RBC Morphology Normal; Total Cells Counted 100
[2025-04-05 13:09] LABS: Free T4 (Free Thyroxine) 1.26 ng/dl (0.78-2.19)
== END 2025-04-05 23:59 | disposition home or self-care (01) ==
LOC: LAB 09:12
PROVIDERS: Physician Assistant Surgical; PCP Family Medicine; Visit Provider Physician Assistant
DX: M25.461 Effusion, right knee (principal); E11.42 Type 2 diabetes mellitus with diabetic polyneuropathy; Z95.1 Presence of aortocoronary bypass graft; Z78.9 Other specified health status; I25.10 Atherosclerotic heart disease of native coronary artery without angina pectoris; I42.9 Cardiomyopathy, unspecified; I11.9 Hypertensive heart disease without heart failure; R53.83 Other fatigue; I73.9 Peripheral vascular disease, unspecified; E78.49 Other hyperlipidemia
CPT/HCPCS: 36415; 80048; 80061; 80076; 80162; 83735; 83880; 84439; 84443; 85007; 85025; 85027; 85651; 86140; 94762

== ENCOUNTER 2025-04-15 13:40 | Outpatient (CLI) | payer MEDICARE, BC, SELFPAY ==
--- OUTSIDE RECORDS SUMMARY | 2025-02-05 05:00 | XMS_ITS ---
Author Organization [facility] Address [address] [place], [place] [id number] Care Team Providers Care Drill Sharpener Name Role Phone Nas Shea Primary Care Provider [phone] Allergies No Known Allergies Results Component Value Reference Range Notes P-Hemoglobin A1C Reviewed date:02/07/2025 08:17:27 AM Interpretation: Performing Lab: Notes/Report: Test performed by [facility] [place] [facility] [employer] [address], [place] [address] Renato Cobb MD, Regulatory Internship CLIA: [id number] Hemoglobin A1C 6.9 <5.7 % The following HbA1c ranges recommended by the [place] Diabetes Association (ADA) may be used as an aid in the diagnosis of diabetes mellitus. HbA1c Suggested Diagnosis >=6.5% Diabetic 5.7% - 6.4% Pre-Diabetic <5.7% Non-Diabetic P-TSH Reviewed date:02/07/2025 08:17:27 AM Interpretation: Performing Lab: Notes/Report: [facility] [address], [place] [address] Renato Cobb MD, Regulatory Internship CLIA: [id number] TSH 2.88 0.43-5.25 mU/L Estimated Average Glucose Reviewed date:02/07/2025 08:17:27 AM Interpretation: Performing Lab: Notes/Report: Test performed by [facility] [address] [place], [place] [address] [address], [place] [address] Renato Cobb MD, Regulatory Internship CLIA: [id number] Estimated Average Glucose (eAG) 151 Estimated Average Glucose (eAG) is calculated using the equation eAG = (28.7 x HbA1c) - 46.7 based on the guidelines established by the ADA. If the patient has certain diseases including kidney disease, sickle cell anemia, thalassemia, or is taking medications such as dapsone, erythropoietin, or iron, eAG should not be evaluated. REASON FOR VISIT F/U from [facility] Medications Medication SIG (Take, Route, Frequency, Duration) Notes Start Date End Date Status Levothyroxine Sodium 75 MCG 1 tab(s) ora lly once a day Active Omeprazole 40 mg TAKE ONE CAPSULE BY MOUTH EVERY DAY for 90 Active Bisoprolol Fumarate 5 MG 1 tab(s) orally once a day Active hydroCHLOROthiazide 25 MG 1 tab(s) orall y once a day for 90 days Active Xarelto 20 MG 1 tablet with food Orally Once a day for 30 day(s) 10/19/2024 Active Atorvastatin Calcium 40 MG 1 tab(s) oral ly once a day (at bedtime) Active Jardiance 10 MG 1 tab(s) orally once a day (in the morning) Active Amitriptyline HCl 50 MG 1.5 tab(s) orall y once a day (at bedtime) for 30 Active Tamsulosin HCl 0.4 mg TAKE ONE CAPSULE B Y MOUTH EVERY DAY for 90 Active Pregabalin 50 MG 1 capsule Orally Thr ee times a day Active Losartan Potassium 100 MG 1 tab(s) orall y once a day Active Vital Signs Blood pressure systolic 112 mm Hg 02/06/20 25 Blood pressure diastolic 74 mm Hg 025 Height 72 in 02/05/2025 Weight 189.6 lbs 02/05/2025 BMI 25.71 kg/m2 02/05/2025 Encounters Encounter Location Date Provider Diagnosis [facility] [address], [place] [phone] 02/05/2025 Nas Shea Type 2 diabetes donnie [...] Up: 3 Months, Reason: Provider Name:Nas Solis, 05/07/2025 09:15:00 AM, [address] [facility] 36 [facility], [address] [place] [address], [phone], Progress Notes * ANGIE SWANOB: 0 (74 yo M)Acc No.[id number]:02/05/2025 Progress Notes Patient: Henry KEV CHEUNG Provider: Nas Shea M.D. :1950 A ge:74 Y S ex:Male Date:02/05/2025 Address:[address] [place] [address] LUIZ KAMINSKI , [facility]-[id number] Subjective: * Chief Complaints: * 1 . F/U from [facility]. * HPI: H PI: Patient is here today for a Transition of Care Visit. Discharge from the following Facility: Gladis [facility] , Discharge date: ,Date of phone contact following discharge: 01/04/2025. Gladis bowden was admitted to [facility] for definitive treatment of septic arthritis [...] stents 03/08/07, Open Heart Surgery-Dr Mott @ [facility] 12/2015, thoracentesis 12/2015, Laparoscopic cholecystectomy - Dr. Wallace 09/06/16, cardiac defibirilltor placed-Dr Yates 07/04/2020, cataract surgery-right eye 12/2020. * Hospitalization/Major Diagno stic Procedure: H ER-suture to pinky finger of left hand 09/25/09, C-scope - Dr. Kimball 09/2013, [facility] ER-Afib 01/2016, [facility] pancreatitis 09/02/16, Left heart cath/[place]/ normal flow of revascularized vessels 02/2017, [facility]-tachycardia 07/02 to 07/03/2020, [facility] UTC - Fall 11/14/2023. * Family [...] ffect a bit flat. Weight loss noted.. Heart: R SR. Lungs: c lear to auscultation. Extremities: R ight knee is mildly swollen but [...] . C ardiomyopathy - I42.9 ?9. B [place] 25.0-25.9,adult - Z68.25 Plan: * Treatment: Value [...] stimated Average Glucose 151 - mg/dL * [facility], IT support 02/06/2025 05:30:07 : This order [...] HG * Follow Up: 3 Months * Billing Information: * Visit Code: 15612 Office Visit, Est Pt., Level 3. * Procedure Codes: 71336 TRANS CARE MGMT 14 DAY DISCH. 1111F DSCHR MED/CURENT MED MERGE. G2211 Complex e/m visit add on. 3044F HG A1C LEVEL LT 7.0%. G8752 MOST RECENT SYSTOLIC BP < 140MM HG. G8754 MOST RECENT DIASTOLIC BP < 90MM HG. * Electronic signature of Nas Shea MD on 04/15/2025 at 01:45 PM EDT Sign off status: Pending * Provider: Nas Shea M.D. Date: 0 02/05/2025 Generated for Galilea lozano/Ken/Stevenitting on: 0 04/15/2025 01:45 PM EDT History and Physical Notes * HPI (History of Present Illness) Category Sub-Category Detail Notes Category Not es HPI Patient is here today for a [facility] sition of Care Visit. Discharge from the following Facility: [facility] ,Discharge date: 01/03/2025 ,Date of phone contact following discharge: 01/04/2025. He was admitted to [facility] for definitive treatment of septic arthritis [...]
--- OUTSIDE RECORDS SUMMARY | 2025-03-19 10:00 | XMS_ITS ---
Author Organization [facility] Address [address] [facility] [address] [place] [id number] Care Team Providers Care Machine Sorter Name Role Phone Nas Shea Primary Care Provider AgustinJosefinaJessie Unavailable [phone] Allergies No Known Allergies REASON FOR VISIT [...] a day (at bedtime) for 30 Active Omeprazole 40 mg TAKE ONE CAPSULE BY MOUTH EVERY DAY for 90 Active Levothyroxine Sodium 75 MCG 1 tab(s) ora lly once a day Active hydroCHLOROthiazide 25 MG 1 tab(s) orall y As needed for 90 days Active Atorvastatin Calcium 40 MG 1 tab(s) oral ly once a day (at bedtime) Active Xarelto 20 MG 1 tablet with food Orally Once a day 10/19/2024 Active Tamsulosin HCl 0.4 mg TAKE ONE CAPSULE B Y MOUTH EVERY DAY Active Aspirin 81 81 MG 1 tablet Orally Once a day Active Furosemide 20 MG 1 tablet Orally Once a day for 3 days Active Bisoprolol Fumarate 5 MG 1 tab(s) orally once a day Active Problems Problem Type SNOMED Code ICD Code Onset Dates Problem Status W/U Status Risk Notes Problem Benign prostatic hyperplasia (826218257) BPH (benign prostatic hyperplasia) (N40.0) Active confirmed Problem [id number] Chronic atrial fibrillation (I48.20) Active confirmed Vital Signs Blood pressure systolic 104 mm Hg 03/19/20 25 Blood pressure diastolic 70 mm Hg 025 Heart Rate 82 /min 03/19/2025 Height 72 in 03/19/2025 Weight 201.2 lbs 03/19/2025 BMI 27.28 kg/m2 03/19/2025 Encounters Encounter Location Date Provider Diagnosis [facility] [address] [facility] [address] [place] [id number] 03/19/2025 Jessie Velez Edema leg R60.0 ; [...] 20 MG 1 tablet Orally Once a day for 3 days Bisoprolol Fumarate 5 MG 1 tab(s) orally once a day Treatment Notes Assessment Notes Edema leg family notes that he has gained about 9# within the last week; after confering with Carlos Dhillon [place] cardiology, pt will take 3 days of [...] Up: 03/26/2025, Reason : Provider Name:Nas [place], 05/07/2025 09:15:00 AM, [address], [address] , [place], [place], [id number], Progress Notes * ANGIE DICKOB: 0 (74 yo M)Acc No.[id number]:03/19/2025 Progress Notes Patient: Henry KEV CHEUNG Provider: GABRIELLE Sanders :1950 A ge:74 Y S ex:Male Date:03/19/2025 Address:[address] [place] [address], [id number] Pcp:Nas Shea Subjective: * Chief Complaints: * [...] calcified posterior MV leaflet, mild MR mild [place]. 04/2023 HTN- BP low today Multiple myeloma- [...] stents 03/08/07, Open Heart Surgery-Dr Mott @ [facility] 12/2015, thoracentesis 12/2015, Laparoscopic cholecystectomy - Dr. Wallace 09/06/16, cardiac defibirilltor placed-Dr Yates 07/04/2020, cataract surgery-right eye 12/2020, Knee Surgery - Due to Infection -01/2025. * Hospitalization/Major Diagno stic Procedure: H ER-suture to pinky finger of left hand 09/25/09, C-scope - Dr. Kimball 09/2013, [facility] ER-Afib 01/2016, [facility] pancreatitis 09/02/16, Left heart cath/[place]/ normal flow of revascularized vessels 02/2017, [facility]-tachycardia 07/02 to 07/03/2020, [facility] UTC - Fall 11/14/2023. * Family [...] , pleasant , well nourished and hydrated. Heart: i rregular rhythm. Lungs: C TAB A&P. Neurologic Exam: a lert and oriented. Extremities: m inimal left leg edema; edema of the right leg from knee down. O rthostatic BP standing 86/60 and 96/64; sitting 90/60 and 86/60. L ABS: date of labs . Creatinine 1 . BUN 3 8. Sodium 1 40. Potassium 4 .2. chloride 1 03. CO2 2 7. glucose 1 50. calcium 9 .7. CBC-hgb/hct/wbc 1 4.2/43.8/5.5; plt [id number]. Total Cholesterol 9 5. Triglyceride 1 13. LDL 4 6.76. HDL 3 1. TSH 3 .80. SGOT/SGPT 2 17. alk phos 8 1. total bilirubin 0 .7. albumin 5 . magnesium 1 .9. G FR 73. Assessment: * [...] arthritis of knee - M00.9? 12. B [place] 27.0-27.9,adult - Z68.27 1 3. B PH [...] with dr. Eason; currently on [place] from [place] 6. C hronic atrial fibrillation Continue Bisoprolol [...] 80 MM HG * Follow Up: * Billing Information: * Visit Code: 70885 Office Visit, Est Pt., Level 4. * Procedure Codes: G2211 Complex e/m visit add on. G8420 BMI<30 AND >=22 CALC & DOCU. 3074F SYST BP LT 130 MM HG. 3078F DIAST BP < 80 MM HG. * Electronic signature of Dahlia Velez APRN on 04/15/2025 at 01:45 PM EDT Sign off status: Pending * Provider: GABRIELLE Sanders Date: 0 03/19/2025 Generated for Galilea lozano/Ken/Stevenitting on: 0 04/15/2025 [...] alert and oriented LABS CBC-hgb/hct/wbc 14.2/43.8/5.5; plt [id number] GFR 73 Creatinine 1 LDL 46.76 HDL 31 SGOT/SGPT 21/17 glucose 150 Total Cholesterol 95 Potassium 4.2 Sodium 140 BUN 38 TSH 3.80 Triglyceride 113 calcium 9.7 chloride 103 CO2 27 alk phos 81 total bilirubin 0.7 albumin 5 date of labs 03/14/2025 magnesium 1.9
--- OUTSIDE RECORDS SUMMARY | 2025-03-26 07:30 | XMS_ITS ---
Author Organization [facility] Address [address] [phone] Care Team Providers Care Electrical Engineering Director Name Role Phone Nas Shea Primary Care Provider Jessie Velez Unavailable [phone] Allergies No Known Allergies REASON FOR VISIT lasik follow up Medications Medication SIG (Take, Route, Frequency, Duration) Notes Start Date End Date Status Levothyroxine Sodium 75 MCG 1 tab(s) ora lly once a day Active Furosemide 20 MG 1 tablet Orally Once a day for 3 days Active Pregabalin 50 MG 1 [...] a day (at bedtime) for 30 Active Lasix 20 MG 1 tablet Orally Once a day prn Active Aspirin 81 81 MG 1 tablet Orally Once a day Active Jardiance 10 MG 1 tab(s) orally once a day (in the morning) Not-Taking Tamsulosin HCl 0.4 mg TAKE ONE CAPSULE B Y MOUTH EVERY DAY Active hydroCHLOROthiazide 25 MG 1 tab(s) orall y As needed for 90 days Not-Taking Xarelto 20 MG 1 tablet with food Orally Once a day 10/19/2024 Active Vital Signs Blood pressure systolic 120 mm Hg 03/26/20 25 Blood pressure diastolic 80 mm Hg 025 Heart Rate 100 /min 03/26/2025 Height 72 in 03/26/2025 Weight 207.2 lbs 03/26/2025 BMI 28.1 kg/m2 03/26/2025 Encounters Encounter Location Date Provider Diagnosis [facility] [address] [place] [address] [place] [id number] 03/26/2025 Jessie Velez Hypotension I95.9 ; Edema [...] Shea 04/18/2025, Reason: Provider Name:Nas Solis, 05/07/2025 09:15:00 AM, 1210 [facility] 36 [facility], [address], [place], [place], [phone], Progress Notes * ANGIE SWANOB: 0 (74 yo M)Acc No.[id number]:03/26/2025 Progress Notes Patient: Henry KEV CHEUNG Provider: GABRIELLE Sanders :1950 A ge:74 Y S ex:Male Date:03/26/2025 Address:[address] [place] [address] [facility], [facility]-[id number] Pcp:Nas Shea Subjective: * Chief Complaints: * [...] diuretics adjusted. He has not seen a carriage setter. During walking test today in clinic his [...] stents 03/08/07, Open Heart Surgery-Dr Mott @ [facility] 12/2015, thoracentesis 12/2015, Laparoscopic cholecystectomy - Dr. Wallace 09/06/16, cardiac defibirilltor placed-Dr Yates 07/04/2020, cataract surgery-right eye 12/2020, Knee Surgery - Due to Infection -01/2025. * Hospitalization/Major Diagno stic Procedure: H ER-suture to pinky finger of left hand 09/25/09, C-scope - Dr. Kimball 09/2013, [facility] ER-Afib 01/2016, [facility] pancreatitis 09/02/16, Left heart cath/[place]/ normal flow of revascularized vessels 02/2017, [facility]-tachycardia 07/02 to 07/03/2020, [facility] UTC - Fall 11/14/2023. * Family [...] AD , alert , pleasant; presents with career development associate in a wheelchair. Heart: R RR. Lungs: C TAB A&P. Neurologic Exam: a lert and oriented. Extremities: b ilateral minimal leg edema. Assessment: * Assessment: 1. H ypotension - [...] G8950 PREHTN/HTN BP DOC INDCD F/U DOC, G5252 MOST RECENT SYSTOLIC BP < 140MM HG, G8754 MOST RECENT DIASTOLIC BP < 90MM HG * Follow Up: t o keep appt with Dr. Shea 04/18/2025 * Billing Information: * Visit Code: 03966 Office Visit, Est Pt., Level 3. * [...] Sanders Date: 0 03/26/2025 Generated for Galilea lozano/Ken/Stveenitting on: 0 04/15/2025 01:45 PM EDT History [...] , alert , pleasa nt; presents with career development associate in a wheelchair Neurologic Exam: alert and oriented
--- OUTSIDE RECORDS SUMMARY | 2025-04-15 13:45 | XMS_ITS | Encounter Summary ---
Author Organization Healthcare Address [address] [place] [address] Care Team Providers Care Electrical Power Engineer Name Role Phone Kai Shea MD Primary Care Provider [phone] Jessica Perales DO Unavailable [phone] Encounter Details Date Type Department Care Team (Late st Contact Info) Description 12/31/2024 Lab Requisition [facility] Lab [address] [place] [address] Valdo Carrillo, CARLOS [address] [place] [address] Encounter for general adult medical examination without abnormal findings Social History Tobacco Use Types Packs/Day Years Used Date Smoking Tobacco: Never Smokeless Tobacco: Never Alcohol Use Standard Drinks/Week Comments Never 0 (1 standard drink = 0.6 oz pur e alcohol) Humiliation, Afraid, Rape, and Kick questionnair e Answer Date Recorded Within the last year, have y ou been afraid of your partner or ex-partner? No 05/04/2024 Within the last year, have y ou been humiliated or emotionally abused in other ways by your partner or ex-partner? No Within the last year, have y ou been kicked, hit, slapped, or otherwise physically hurt by your partner or ex-partner? No 05/04/2024 Within the last year, have y ou been raped or forced to have any kind of sexual activity by your partner or ex-partner? No 05/04/2024 PHQ-2 Answer Date Recorded Patient Health Questionnaire-2 Score 1 12/03/2024 Hunger Vital Sign Answer Date Recorded Within the past 12 months, y ou worried that your food would run out before you got the money to buy more. Never true 05/04/20 24 Within the past 12 months, t he food you bought just didn't last and you didn't have money to get more. Never true 05/04/2024 PRAPARE - Transportation Answer Date Re corded In the past 12 months, has l ack of transportation kept you from medical appointments or from getting medications? No 02/2024 In the past 12 months, has l ack of transportation kept you from meetings, work, or from getting things needed for daily living? No 05/04/2024 Housing Stability Vital Sign Answer Urban e Recorded In the last 12 months, was t here a time when you were not able to pay the mortgage or rent on time? No 05/04/2024 In the last 12 months, how many places have you lived? 1 05/04/2024 In the last 12 months, was t here a time when you did not have a steady place to sleep or slept in a jail (including now)? No 05/04/2024 PHQ-9 Answer Date Recorded Patient Health Questionnaire-9 Score 6 12/03/2024 CAGE ASSESSMENT Answer Date Recorded Cage unable to access Not on file 05/05/2024 Cage max number of drinks Not on file 2023 Cage Beverages a week Not on file 05/05/2024 Have you ever felt you should CUT down on your d rinking? 0 05/05/2024 Have you been ANNOYED by people criticizing your drinking? 0 05/05/2024 Have you felt GUILTY about your drinking? 0 05/05/2024 Have you had a drink first t vane in the morning (EYE-SALES PROJECT COORDINATOR) to steady your nerves or to get rid of a hangover? 0 05/05/2024 CAGE Questionnaire Score 0 024 Utilities Answer Date Recorded In the past 12 months has th e electric, gas, oil, or water company threatened to shut off services in your home? No 05/04/2024 Sex and Gender Information Value Date Recorded Sex Assigned at Not on file Legal Sex Male 7:44 PM EDT Gender Identity Not on file Sexual Orientation Not on file documented as of this encounter Plan of Treatment Upcoming Encounters Date Type Department Care Team (Late st Contact Info) Description 09/23/2025 11:30 AM EST Appointment [facility] [address] [place] [address] documented as of this encounter Procedures Procedure Name Priority Date/Time Associated Diagnosis Comments BODY FLUID CELL COUNT W/ MANUAL DIFFERENTIAL STAT 12/31/2024 3:15 PM EST Encounter for general adult medical examination without abnormal findings BODY FLUID, CYTOSPIN, PATHOLOGIST INTERPRETATION STAT 12/31/2024 3:15 PM EST Encounter for general adult medical examination without abnormal findings JOINT FLUID CRYSTALS STAT 12/31/2024 3:15 PM EST Encounter for general adult medical examination without abnormal findings documented in this encounter Results * Body fluid, cytospin, pathologist interpretation (12/31/2024 3:15 PM EST) Specimen Type Joint Fluid LAB HEMATOLOGY METHOD 01/01/2025 2:08 PM EST [facility] Specimen Source, Body Fluid LAB HEMATOLOGY METHOD 01/01/2025 2:08 PM EST [facility] Clinical Diagnosis, Body Fluid Joint fluid. Neuropathy. History of plasma cell neoplasm and Parkinson's LAB HEMATOLOGY METHOD 01/01/2025 2:08 PM EST [facility] Interpretation , Body Fluid No evidence of malignancy; acute inflammatory cells. See comment A resident was involved in the service. I attest I examined the relevant preparations for the specimens and confirmed the diagnosis or interpretation. 01/01/2025 2:08 PM EST [facility] Pathologist Signature, Body Fluid 01/01/2025 2:08 PM EST [facility] Comment:Reviewed by: Prashanth Montiel MD LAB CP ASR DISCLAIMER Yes 01/01/2025 2:08 PM EST [facility] Joint Fluid 12/31/2024 3:15 PM EST 12/31/2024 6:01 PM EST Narrative [facility] - 01/01/2025 2:08 PM EST Correlation with microbiology studies is suggested. Valdo GONZALEZ LAB BODY FLUIDS AND STOOLS ORDERABLES Final Result [facility] [address] [place] [address] * (ABNORMAL) Body Fluid Cell Count w/ Diff (12/31/2024 3:15 PM EST) Color, Body fluid Yellow LAB HEMATOLOGY METHOD 12/31/2024 8:00 PM EST [facility] Appearance, Body fluid Cloudy(A) LAB HEMATOLOGY METHOD 12/31/2024 8:00 PM EST [facility] Volume, Body fluid 2.5 cc LAB HEMATOLOGY METHOD 12/31/2024 8:00 PM EST [facility] Fluid Container Specimen received in EDTA tube LAB HEMATOLOGY METHOD 12/31/2024 8:00 PM EST [facility] Red Blood Cell Count, Body fluid 5,000 uL LAB HEMATOLOGY METHOD 12/31/2024 8:00 PM EST [facility] Total Nucleated Cell Count, Body fluid 44,000 uL LAB HEMATOLOGY METHOD 12/31/2024 8:00 PM EST [facility] Neutrophils %, Body fluid 95 % LAB HEMATOLOGY METHOD 12/31/2024 8:00 PM EST [facility] Lymphocytes %, Body fluid 1 % LAB HEMATOLOGY METHOD 12/31/2024 8:00 PM [facility] Monocytes/Macro phages %, Body fluid 4 % LAB HEMATOLOGY METHOD 12/31/2024 8:00 PM [facility] Eosinophils %, Body fluid 0 % LAB HEMATOLOGY METHOD 12/31/2024 8:00 PM [facility] Lining/Mesothel ial Cells %, Body fluid 0 % LAB HEMATOLOGY METHOD 12/31/2024 8:00 PM EST [facility] Neutrophils Absolute (PMN), Body fluid 41,800 uL LAB HEMATOLOGY METHOD 12/31/2024 8:00 PM [facility] Lymphocytes Absolute, Body fluid 440 uL LAB HEMATOLOGY METHOD 12/31/2024 8:00 PM [facility] Monocytes/Macro phages Absolute, Body fluid 1,760 uL LAB HEMATOLOGY METHOD 12/31/2024 8:00 PM [facility] Eosinophils Absolute, Body fluid 0 uL LAB HEMATOLOGY METHOD 12/31/2024 8:00 PM EST [facility] Basophils Absolute, Body fluid 0 uL LAB HEMATOLOGY METHOD 12/31/2024 8:00 PM EST [facility] Lining/Mesothel ial Cells Absolute, Body fluid 0 uL LAB HEMATOLOGY METHOD 12/31/2024 8:00 PM EST [facility] Comment, Body fluid None LAB HEMATOLOGY METHOD 12/31/2024 8:00 PM EST [facility] Comment:This is an appended report. These results have been appended to a previously preliminary verified report. Basophils %, Body fluid 0 % LAB HEMATOLOGY METHOD 12/31/2024 8:00 PM EST [facility] Joint Fluid 12/31/2024 3:15 PM EST 12/31/2024 6:01 PM EST us Valdo GONZALEZ LAB BODY FLUIDS AN D STOOLS ORDERABLES NO SPECIMEN TYPE/SOURCE Final Result Performing Organization Address [facility] Co de Phone Number [facility] [address] [place] [address] * (ABNORMAL) Synovial fluid, crystal (12/31/2024 3:15 PM EST) Crystals, Joint Fluid Calcium Pyrophosphate Crystals Present(A) No Crystals Present 12/31/2024 11:06 PM EST [facility] Joint Fluid 12/31/2024 3:15 PM EST 12/31/2024 6:01 PM EST Narrative [facility] - 12/31/2024 11:06 PM EST Under compensated polarized light microscopy rhomboidal positively birefringent crystals are seen consistent with Calcium Pyrophosphate. The presence of steroid crystals may result in a false positive. Correlate results with recent history up to 2 months of steroid injection. us Valdo GONZALEZ LAB BODY FLUIDS AND STOOLS ORDERABLES Final Result Performing Organization Address [facility] Co de Phone Number [facility] [address] [place] [address] documented in this encounter Visit Diagnoses Diagnosis Encounter for general adult medical examination without abnormal findings documented in this encounter Additional Health Concerns Assessment Noted Time PHQ-9 Depression Total Score: 6 12/03/19 25 1:11 PM EST A fall risk assessment has been complete d for the patient 12/03/2024 1:11 PM EST A Body Mass Index follow-up plan has been documented for the patient 12/10/2024 9:53 AM EST documented as of this encounter Care Teams Electrical Power Engineer Relationship Specialty Start Date End Date Kai Shea MD [address] [place] [address] PCP - General 03/13/21 Jessica Perales DO [address] [place] [address] Resident Neurology 06/16/21 documented as of this encounter
--- OUTSIDE RECORDS SUMMARY | 2025-04-15 13:45 | XMS_ITS | Encounter Summary ---
Author Organization Healthcare Address [address] [place] [address] Care Team Providers Care Director Of Occupational Health Name Role Phone Kai Shea MD Primary Care Provider [phone] Jessica Perales DO Unavailable [phone] Encounter Details Date Type Department Care Team (Late st Contact Info) Description 11/05/2024 Orders Only [facility] [address] [place] [address] Rome York, DO [address] [id number] Neuropathy Social History Tobacco Use Types Packs/Day Years [...] by your partner or ex-partner? No 05/04/2024 Hunger Vital Sign Answer Date Recorded Within the past 12 months, y ou worried that your food would run out before you got the money to buy more. Never true 05/04/20 Within the past 12 months, t he [...] place to sleep or slept in a chcf (including now)? No 05/04/2024 CAGE ASSESSMENT Answer Date Recorded Cage unable [...] drink first t vane in the morning (EYE-PHP PROGRAMMER) to steady your nerves or to get [...] Appointment [facility] [address] [place] [address] documented as of this encounter Visit Diagnoses Diagnosis Neuropathy Mononeuritis of unspecified site documented in this encounter Additional Health Concerns Assessment Noted Time A fall risk assessment has been complete d for the patient 12/19/2023 3:03 PM EST A Body Mass Index follow-up plan has been documented for the patient 05/05/2024 11:32 AM EDT documented as of this encounter Care Teams Director Of Occupational Health Relationship Specialty Start Date End Date Kai Shea MD [address] [place] [address] PCP - General 03/13/21 Jessica Perales DO [address] [place] [address] Resident Neurology 06/16/21 documented as of this encounter
--- OUTSIDE RECORDS SUMMARY | 2025-04-15 13:45 | XMS_ITS | Encounter Summary ---
Author Organization Healthcare Address [address] [place] [address] Care Team Providers Care Freight Brakeman Name Role Phone Kai Shea MD Primary Care Provider [phone] Jessica Perales DO Unavailable [phone] Encounter Details Date Type Department Care Team (Late st Contact Info) Description 12/31/2024 Lab Requisition [facility] Lab [address] [place] [address] Valdo Carrillo, CARLOS [address] [place] [address] Encounter for general adult medical examination without [...] place to sleep or slept in a penitentiary (including now)? No 05/04/2024 PHQ-9 Answer Date [...] drink first t vane in the morning (EYE-MARINE RIGGER) to steady your nerves or to get [...] Appointment [facility] [address] [place] [address] documented as of this encounter Procedures Procedure Name Priority Date/Time Associated Diagnosis Comments BODY FLUID CULTURE AND GRAM STAIN Routine 12/31/2024 5:40 PM EST Encounter for general adult medical examination without abnormal findings documented in this encounter Results * (ABNORMAL) Body Fluid Culture and Gram Stain (12/31/2024 5:40 PM EST) Culture Light Growth 01/06/2025 10:47 AM EDT [facility] Culture Staphylococcus epidermidis(A) BASSAM 01/06/2025 10:47 AM EDT [facility] Comment: This isolate has been identified using the FDA Approved Ende[employer] CA System The organism value for this result has been updated. These results have been appended to the previously preliminary verified report. Edited result: Previously reported as Gram positive cocci on 01/02/2025 at 0908 EST. Gram Stain Result Numerous Polymorphonuclear leukocytes(A) 01/06/2025 10:47 AM EDT [facility] Gram Stain Result Rare Gram positive cocci in pairs(A) 01/06/2025 10:47 AM EDT [facility] Joint Fluid Synovial fluid specimen / Unknown 12/31/2024 5:40 PM EST 12/31/2024 6:06 PM EST Narrative Organism Antibiotic Method Susceptibility Staphylococcus epidermidis Clindamycin BASSAM >2 ug/ml: Resistant Staphylococcus epidermidis Daptomycin BASSAM <=1 ug/ml: Susceptible Staphylococcus epidermidis Erythromycin BASSAM >4 ug/ml: Resistant Staphylococcus epidermidis Gentamicin BASSAM <=1 ug/ml: Susceptible Staphylococcus epidermidis Linezolid BASSAM 2 ug/ml: Susceptible Staphylococcus epidermidis Minocycline BASSAM 2 ug/ml: Susceptible Staphylococcus epidermidis Oxacillin BASSAM 0.5 ug/ml: Resistant Staphylococcus epidermidis Penicillin G BASSAM <=0.125 ug/ml: Resistant Staphylococcus epidermidis Tetracycline BASSAM 2 ug/ml: Susceptible Staphylococcus epidermidis Vancomycin BASSAM 1 ug/ml: Susceptible us Valdo GONZALEZ LAB MICROBIOLOGY - GENERAL ORDERABLES Final Result [facility] [address] [place] [address] documented in this encounter Visit Diagnoses Diagnosis [...] documented as of this encounter Care Teams Freight Brakeman Relationship Specialty Start Date End Date Kai Shea MD [address] [place] [address] PCP - General 03/13/21 Jessica Perales DO [address] [place] [address] Resident Neurology 06/16/21 documented as of this encounter
--- OUTSIDE RECORDS SUMMARY | 2025-04-15 13:46 | XMS_ITS | Clinical Summary ---
Author Organization [facility] Address [address] [facility] [place] [address] [place] [address] Phone Care Team Providers Care Production Line Welder Name Role Phone Unavailable Primary Care Provider Unavailabl e Allergies No known active allergies Medications bisoproloL-hydro chlorothiazide (ZIAC) 5-6.25 mg Oral Tablet Take 1 Tablet by mouth daily. Active hydroCHLOROthiaz kenia (HYDRODIURIL) 25 mg Oral Tablet Take 25 mg by mouth daily. Active rOPINIRole (REQUIP) 0.25 mg Oral Tablet Take 0.25 mg by mouth 2 times daily. Active empagliflozin (JARDIANCE) 10 mg Oral Tablet Take 10 mg by mouth daily. Active losartan (COZAAR) 100 mg Oral Tablet Take 100 mg by mouth daily. Active fUROsemide (LASIX) 20 mg Oral Tablet Take 20 mg by mouth. 3x a week Active rivaroxaban (XARELTO) 10 mg Oral Tablet Take 2.5 mg by mouth 2 times daily (with meals). Active atorvastatin (LIPITOR) 40 mg Oral Tablet Take 40 mg by mouth daily. Active tamsulosin (FLOMAX) 0.4 mg Oral Capsule Take 0.4 mg by mouth daily. Active amitriptyline (ELAVIL) 50 mg Oral Tablet Take 50 mg by mouth nightly. Active omeprazole (PRILOSEC) 40 mg Oral Capsule, Delayed Release(E.C.) Take 40 mg by mouth daily. Active aspirin 81 mg Oral Tablet, Chewable Take 81 mg by mouth daily. Active Surgical History Surgery Date Site/Laterality Comments CT NEEDLE BIOPSY BONE 01/07/2023 CT NEEDLE BIOPSY BONE 01/07/[address] Social History Tobacco Use Types Packs/Day Years Used Date Smoking Tobacco: Never Smokeless Tobacco: Never Tobacco Cessation:Counseling Given: Not Answered Sex and Gender Information Value Date Recorded Sex Assigned at Not on file Legal Sex Male 3:48 PM EST Gender Identity Not on file Sexual Orientation Not on file Obstetrics History Last Filed Vital Signs Vital Sign Reading Time Taken Comments Blood Pressure 114/63 01/07/2023 10:50 AM EST Pulse 75 01/07/2023 10:50 AM EST Temperature 36.6 C (97.8 F) 01/07/2023 9:06 AM EST Respiratory Rate 14 01/07/2023 10:50 AM EST Oxygen Saturation 98% 01/07/2023 10:50 AM EST Inhaled Oxygen Concentration - - Weight 115.7 kg (255 lb) 01/07/2023 9:06 AM EST Height 182.9 cm (6') 01/07/2023 9:06 AM EST Body Mass Index 34.58 01/07/2023 9:06 AM EST Plan of Treatment Health Maintenance Due Date Last Done Comments Wellness Exam Medicare 1953 Hepatitis C Screening 1968 Cologuard 1995 Colon Cancer Screening 1995 Colonoscopy 1995 FIT 1995 Sigmoidoscopy 1995 Virtual Colonography 1995 Zoster (1 of 2) 2000 RSV or 60+ (1 - Ris k 60-74 years 1-dose series) 2010 Pneumococcal Vaccine 50+ (2 of 2 - PCV20 or PCV21) 01/20/2020 01/19/2019 COVID-19 Vaccine (4 - 2023-2 5 season) 2024 10/08/2021, 01/16/2021, 12/24/2020 Influenza Vaccine (Season Ended) 2025 DTaP/TDaP/Td (2 - Td or Tdap) 01/19/2029 01/19/2019 Hepatitis B Vaccine Aged Out No longe r eligible based on patient's age to complete this topic Meningococcal B Vaccine Aged Out No l onger eligible based on patient's age to complete this topic Insurance FEDERAL [facility]LY [facility] FEDERAL MEDICARE [place] PART A AND B FEDERAL
--- OUTSIDE RECORDS SUMMARY | 2025-04-15 13:46 | XMS_ITS | Encounter Summary ---
Author Organization [place] [address] Care Team Providers Care Alteration Tailor Apprentice Name Role Phone Unavailable Primary Care Provider Unavailabl e Encounter Details Date Type Department Care Team (Late st Contact Info) Description 01/07/2023 [facility] [place] [id number] Barbara Bess MD [address] [place] [id number] Social History Tobacco Use Types Packs/Day Years Used Date Smoking Tobacco: Never Smokeless Tobacco: Never Sex and Gender Information Value Date Recorded Sex Assigned at Not on file Legal Sex Male 3:48 PM EST Gender Identity Not on file Sexual Orientation Not on file COVID-19 Exposure Response Date Recorded In the last 10 days, have yo u been in contact with someone who was confirmed or suspected to have Coronavirus/COVID-19? No / Unsure 01/07/2023 8:09 AM EST documented as of this encounter Plan of Treatment Not on file documented as of this encounter Procedures Procedure Name Priority Date/Time Associated Diagnosis Comments Avexxin STANDARD LEUKEMIA/LYMPHOMA PANEL Routine 01/07/2023 9:45 AM EST documented in this encounter Results * NEOGENOMICS STANDARD LEUKEMIA/LYMPHOMA PANEL (01/07/2023 9:45 AM EST) 01/07/2023 9:45 AM EST Narrative [facility] - 01/10/2023 3:22 PM EDT Requesting Provider: GIOVANNA Chaney Specimen = [id number] us Barbara Bess MD PATHOLOGY ORDERABLES Final Resul t Performing Organization Address City/State/[facility] Co de Phone Number [facility] [address] [place] [address] documented in this encounter Visit Diagnoses Not on filedocumented in this encounter
--- OUTSIDE RECORDS SUMMARY | 2025-04-15 13:46 | XMS_ITS | Clinical Summary ---
Author Organization [facility] Address [address] [place] [address] Care Team Providers Care Audio/Video Technician Name Role Phone Kai Shea MD Primary Care Provider [phone] Jessica Perales DO Unavailable [phone] Allergies No known active allergies Medications atorvastatin (Lipitor) 40 MG tablet Take 1 tablet (40 mg) by mouth 1 (one) time each day. Active hydroCHLOROthia zide (HYDRODiuril) 25 MG tablet Take 1 tablet (25 mg) by mouth 1 (one) time each day. 05/21/2020 Active tamsulosin (Flomax) 0.4 MG 24 hr capsule Take 1 capsule (0.4 mg) by mouth 1 (one) time each day. 01/20/2017 Active bisoprolol (Zebeta) 5 MG tablet Take 1 tablet (5 mg) by mouth 1 (one) time each day. 06/29/2021 Active dexamethasone (Decadron) 4 MG tablet take 10 tablets BY MOUTH one time each WEEK ON DAYS 1, 8, AND 15 of a 28 DAY CYCLE 09/01/2021 Active omeprazole (PriLOSEC) [address] capsule Take 1 capsule (40 mg) by mouth 1 (one) time each day. 08/25/2021 Active losartan (Cozaar) 100 MG tablet Take 1 tablet (100 mg) by mouth 1 (one) time each day. 06/29/2022 Active aspirin 81 MG chewable tablet Chew 1 tablet (81 mg) 1 (one) time each day. Active Jardiance 10 MG Take 1 tablet (10 mg) by mouth 1 (one) time each day in the morning. 07/18/2023 Active levothyroxine (Synthroid, Levoxyl) 75 MCG tablet Take 1 tablet (75 mcg) by mouth 1 (one) time each day. 06/17/2023 Active Lenalidomide 20 MG capsule Take 20 mg by mouth 1 (one) time each day. Take whole with water. Do not break, chew, or open. On Days 1 thru 14 of a 21 day cycle Active acyclovir (Zovirax) 800 MG tablet Take 1 tablet (800 mg) by mouth 2 (two) times a day. Active acetaminophen (Tylenol) 500 MG tablet Take 2 tablets (1,000 mg) by mouth every 6 (six) hours if needed. Active Xarelto 20 MG tablet Take 1 tablet (20 mg) by mouth 1 (one) time each day with dinner. 10/17/2024 Active ammonium lactate (Amlactin) 12 % cream 2 (two) times a day. 10/17/2024 Active amitriptyline (Elavil) 25 MG tabletIndicatio ns:Neuropathy Take 4 tablets (100 mg) by mouth every night. 360 tablet 3 12/03/2024 6 Active pregabalin (Lyrica) 50 MG capsuleIndicati ons:Neuropathy Take 1 capsule (50 mg) by mouth 2 (two) times a day. 60 capsule 1 12/04/2024 Active Active Problems Problem Noted Date Diagnosed Date Fall 05/04/2024 Debility 05/03/2024 Acute respiratory failure with hypoxia 4 Neuropathy 2021 Parkinson's disease 2021 Hypothyroidism Obesity Overview (09/21/2021): History of obesity Hyperlipidemia Overview (09/21/2021): History of hyperlipidemia Coronary artery disease Overview (09/21/2021): History of coronary artery disease Myocardial infarction Nephrolithiasis Congestive heart disease Atrial fibrillation Multiple myeloma not having achieved remission Cancer Staging:Clinical stage from 07/01/2021: Albumin (g/dL): 4.2, ISS: Stage II, LDH: Not assessed - Signed by Mar Diaz MD on 09/21/2021 Encounters Date Type Department Care Team Description 01/15/2025 Lab Requisition [facility] [address] [place] [address] Sara Alegre Encounter for general adult medical examination without abnormal findings from Last 3 Months Immunizations Immunization Administration Dates Next Due adQ COVID-19 Vaccine (Purple Cap) 12 + 01/16/2021,12/24/2020 Pneumococcal Conjugate PCV 13 01/19/2019 Tdap 03/17/2023,01/19/2019 Family History Medical History Relation Name Comments Diabetes Father Emphysema Father Diabetes Mother Emphysema Mother Relation Name Status Comments Father Mother Social History Tobacco Use Types Packs/Day Years Used Date Smoking Tobacco: Never Smokeless Tobacco: Never Tobacco Cessation:Counseling Given: Not Answered Alcohol Use Standard Drinks/Week Comments Never 0 [...] place to sleep or slept in a senior living (including now)? No 05/04/2024 PHQ-9 Answer Date [...] drink first t vane in the morning (EYE-MANAGER OF PRODUCT) to steady your nerves or to get [...] on file Sexual Orientation Not on file Last Filed Vital Signs Vital Sign Reading Time Taken Comments Blood Pressure 112/64 12/03/2024 1:13 PM EST Pulse 60 12/03/2024 1:13 PM EST Temperature 36.8 C (98.3 F) 05/05/2024 7:54 AM EDT Respiratory Rate 16 05/05/2024 7:54 AM EDT Oxygen Saturation 97% 12/03/2024 1:13 PM EST Inhaled Oxygen Concentration - - Weight 92.5 kg (203 lb 14.8 oz) 12/03/2024 1:13 PM EST Height 188 cm (6' 2 ) 12/03/2024 1:13 PM EST Body Mass Index 26.18 12/03/2024 1:13 PM EST Plan of Treatment Upcoming Encounters Date Type Department Care Team (Late st Contact Info) Description 09/23/2025 11:30 AM EST Appointment [facility] Radiology [address] [place] [address] Health Maintenance Due Date Last Done Comments [facility]-Medicare Annual Wellness (AWV) 1950 [facility]-/Child/Adol SDOH Screenings 1950 [facility]-Zoster Vaccines (1 of 2) 1969 CT Colonography 1995 Colonoscopy 1995 FIT-DNA 1995 FIT 1995 FOBT 1995 Sigmoidoscopy 1995 [facility]-Colorectal Cancer Screening 1995 [facility]-RSV Vaccine: 60+ Years or (1 - Risk 60-74 years 1-dose series) 2010 [facility]-Pneumococcal Vaccine: 50+ Years (2 of 2 - PPSV23) 03/16/2019 01/19/2019 [id number] Vaccine ( season) 2024 10/08/2021, 01/16/2021, 12/24/2020 [facility]- SDOH Screenings 11/04/2024 [facility]-Adult SDOH Screenings 11/04/2024 05/04/2024 [facility]-Influenza Vaccine (Season Ended) 2025 [facility]-Depression Screening 12/03/2025 12/03/2024, 0212/2024 [facility]-DTaP,Tdap,and Td Vaccines (3 - Td or Tdap) 03/17/2033 03/17/2023, 01/19/2019 [facility]-Hepatitis C Screening Completed 05/03/2024 [facility]-Obesity Intervention Completed 025, 05/03/2024, 12/19/2023, Additional history exists HPV Vaccines Aged Out No longer eligi ble based on patient's age to complete this topic [facility]-HIB Vaccines Aged Out No longer e ligible based on patient's age to complete this topic [facility]-Hepatitis A Vaccines Aged Out No longer eligible based on patient's age to complete this topic [facility]-IPV Vaccines Aged Out No longer e ligible based on patient's age to complete this topic [facility]-Rotavirus Vaccines Aged Out No lo nger eligible based on patient's age to complete this topic Procedures Procedure Name Priority Date/Time Associated Diagnosis Comments BODY FLUID, CYTOSPIN, PATHOLOGIST INTERPRETATION STAT 01/15/2025 12:10 PM EDT Encounter for general adult medical examination without abnormal findings JOINT FLUID CRYSTALS Routine 01/15/2025 12:10 PM EDT Encounter for general adult medical examination without abnormal findings BODY FLUID CELL COUNT W/ MANUAL DIFFERENTIAL STAT 01/15/2025 12:10 PM EDT Encounter for general adult medical examination without abnormal findings HEPATITIS C ANTIBODY - ED W/REFLEX TO HCV QUANT PCR STAT 05/03/2024 4:48 PM EDT from Last 3 Months or Most Recently Relevant to Health Maintenance Results * (ABNORMAL) Body Fluid Cell Count w/ Diff (01/15/2025 12:10 PM EDT) Color, Body fluid Red LAB HEMATOLOGY METHOD 01/15/2025 7:53 PM EDT [facility] Appearance, Body fluid Cloudy(A) LAB HEMATOLOGY METHOD 01/15/2025 7:53 PM EDT [facility] Volume, Body fluid 4.0 cc LAB HEMATOLOGY METHOD 01/15/2025 7:53 PM EDT [facility] Fluid Container Specimen received in Sodium Heparin LAB HEMATOLOGY METHOD 01/15/2025 7:53 PM EDT [facility] Red Blood Cell Count, Body fluid 45,500 uL LAB HEMATOLOGY METHOD 01/15/2025 7:53 PM EDT [facility] Comment:Clumps present, coun t may be affected. Test performed by manual method. Total Nucleated Cell Count, Body fluid 75,000 uL LAB HEMATOLOGY METHOD 01/15/2025 7:53 PM EDT [facility] Comment:Clumps present, coun t may be affected. Test performed by manual method. Neutrophils %, Body fluid 93 % LAB HEMATOLOGY METHOD 01/15/2025 7:53 PM EDT [facility] Lymphocytes %, Body fluid 0 % LAB HEMATOLOGY METHOD 01/15/2025 7:53 PM EDT [facility] Monocytes/Macro phages %, Body fluid 7 % LAB HEMATOLOGY METHOD 01/15/2025 7:53 PM EDT [facility] Eosinophils %, Body fluid 0 % LAB HEMATOLOGY METHOD 01/15/2025 7:53 PM EDT [facility] Lining/Mesothel ial Cells %, Body fluid 0 % LAB HEMATOLOGY METHOD 01/15/2025 7:53 PM EDT [facility] Neutrophils Absolute (PMN), Body fluid 69,750 uL LAB HEMATOLOGY METHOD 01/15/2025 7:53 PM EDT [facility] Lymphocytes Absolute, Body fluid 0 uL LAB HEMATOLOGY METHOD 01/15/2025 7:53 PM EDT [facility] Monocytes/Macro phages Absolute, Body fluid 5,250 uL LAB HEMATOLOGY METHOD 01/15/2025 7:53 PM EDT [facility] Eosinophils Absolute, Body fluid 0 uL LAB HEMATOLOGY METHOD 01/15/2025 7:53 PM EDT [facility] Basophils Absolute, Body fluid 0 uL LAB HEMATOLOGY METHOD 01/15/2025 7:53 PM EDT [facility] Lining/Mesothel ial Cells Absolute, Body fluid 0 uL LAB HEMATOLOGY METHOD 01/15/2025 7:53 PM EDT [facility] Comment, Body fluid None LAB HEMATOLOGY METHOD 01/15/2025 7:53 PM EDT [facility] Comment:This is an appended report. These results have been appended to a previously preliminary verified report. Basophils %, Body fluid 0 % LAB HEMATOLOGY METHOD 01/15/2025 7:53 PM EDT [facility] Joint Fluid 01/15/2025 12:1 0 PM EDT 01/15/2025 2:41 PM EDT Sara Guy LAB BODY FLUIDS AND STOOLS ORDERABLES NO SPECIMEN TYPE/SOURCE Final Result [facility] [address] [place] [address] * Body fluid, cytospin, pathologist interpretation (01/15/2025 12:10 PM EDT) Specimen Type Joint Fluid LAB HEMATOLOGY METHOD 01/16/2025 4:15 PM EDT [facility] Specimen Source, Body Fluid LAB HEMATOLOGY METHOD 01/16/2025 4:15 PM EDT [facility] Clinical Diagnosis, Body Fluid Joint effusion LAB HEMATOLOGY METHOD 01/16/2025 4:15 PM EDT [facility] Interpretation , Body Fluid Acute inflammatory cells; correlate with Gram stain/culture and/or crystal analysis. A resident was involved in the service. I attest I examined the relevant preparations for the specimens and confirmed the diagnosis or interpretation. 01/16/2025 4:15 PM EDT [facility] Pathologist Signature, Body Fluid 01/16/2025 4:15 PM EDT [facility] Comment:Reviewed by: Isabel Donohue MD LAB CP ASR DISCLAIMER Yes 01/16/2025 4:15 PM EDT [facility] Joint Fluid 01/15/2025 12:1 0 PM EDT 01/15/2025 2:41 PM EDT [facility] BODY FLUIDS AND STOOLS ORDER MARYLIN Final Result Performing Organization Address City/[facility] Co de Phone Number [facility] [address] [place] [address] * (ABNORMAL) Joint Fluid Crystals (01/15/2025 12:10 PM EDT) Crystals, Joint Fluid Calcium Pyrophosphate Crystals Present(A) No Crystals Present 01/15/2025 7:55 PM EDT [facility] Joint Fluid 01/15/2025 12:1 0 PM EDT 01/15/2025 2:41 PM EDT Narrative [facility] - 01/15/2025 7:55 PM EDT Under compensated polarized light microscopy rhomboidal positively birefringent crystals are seen consistent with Calcium Pyrophosphate. The presence of steroid crystals may result in a false positive. Correlate results with recent history up to 2 months of steroid injection. us [facility] BODY FLUIDS AND STOOLS ORDER MARYLIN Final Result Performing Organization Address City/[facility] Co de Phone Number [facility] [address] [place] [address] * Hepatitis C Antibody - ED (05/03/2024 4:48 PM EDT) Hepatitis C Antibody Negative Negative 05/03/2024 5:39 PM EDT [facility] Blood Venous blood specimen / Unknown Venipuncture / Unknown 05/03/2024 4:48 PM EDT 05/03/2024 4:58 PM EDT us Rome Dominguez MD LAB BLOOD ORDERABLES Final Result [facility] [address] [place] [address] from Last 3 Months or Most Recently Relevant to Health Maintenance Insurance [facility] MEDICARE Advance Directives Documents on File Type Date 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 Yes Care Teams Audio/Video Technician Relationship Specialty Start Date End Date Kai Shea MD [address] [place] [address] PCP - General 03/13/21 Jessica Perales DO [address] [place] [address] Resident Neurology 06/16/21
--- OUTSIDE RECORDS SUMMARY | 2025-04-15 13:46 | XMS_ITS | Encounter Summary ---
Author Organization [place] [address] [place] [address] Care Team Providers Care Dog Day Care Attendant Name Role Phone Unavailable Primary Care Provider Unavailabl e Encounter Details Date Type Department Care Team (Late st Contact Info) Description 01/07/2023 Orders Only [facility] [phone] Barbara Bess MD [address] [place] [phone] Social History Tobacco Use Types Packs/Day Years [...] Procedure Name Priority Date/Time Associated Diagnosis Comments NEOGENOMICS ONCOLOGY CHROMOSOME ANALYSIS Routine 01/07/2023 9:45 AM EST documented in this encounter Results * NEOGENOMICS ONCOLOGY CHROMOSOME ANALYSIS (01/07/2023 9:45 AM EST) 01/07/2023 9:45 AM EST Narrative [facility] - 01/17/2023 1:28 PM EDT Requesting Provider: GIOVANNA Chaney Specimen = [id number] us Barbara Bess MD PATHOLOGY ORDERABLES Final Resul t [facility] [address] [place] [address] documented in this encounter Visit Diagnoses Not on filedocumented in this encounter
--- OUTSIDE RECORDS SUMMARY | 2025-04-15 13:46 | XMS_ITS | Encounter Summary ---
Author Organization [place] [address] [place] [address] Care Team Providers Care Solar Mechanical Engineer Name Role Phone Unavailable Primary Care Provider Unavailabl e Encounter Details Date Type Department Care Team (Late st Contact Info) Description 01/07/2023 Orders Only [facility] [place] [phone] Barbara Bess MD [address] [place] [phone] Social History Tobacco Use Types Packs/Day Years [...] Name Priority Date/Time Associated Diagnosis Comments NEOGENOMICS TP53 MUTATION ANALYSIS Routine 01/07/2023 9:45 AM EST documented in this encounter Results * NEOGENOMICS TP53 MUTATION ANALYSIS (01/07/2023 9:45 AM EST) 01/07/2023 9:45 AM EST Narrative [facility] - 01/24/2023 5:22 PM EDT Requesting Provider: GIOVANNA Chaney Specimen = [id number] us Barbara Bess MD PATHOLOGY ORDERABLES Final Resul t [facility] [address] [place] [address] documented in this encounter Visit Diagnoses Not on filedocumented in this encounter
--- OUTSIDE RECORDS SUMMARY | 2025-04-15 13:46 | XMS_ITS | Patient Health Record ---
Author Organization [facility] Address [address] [place] [phone] Care Team Providers Care Bridge Expert Name Role Phone Nas Shea Primary Care Provider VelezLudy loveine Unavailable [phone] Allergies No Known Allergies Results Component Value Reference Range Notes P-Hemoglobin A1C Reviewed date:02/07/2025 08:17:27 AM Interpretation: Performing Lab: Notes/Report: Test performed by [employer] [facility] [employer] , [address], [place] [address] Renato Cobb MD, Color Developer CLIA: [id number] Hemoglobin A1C 6.9 <5.7 % The following HbA1c ranges recommended by the [place] [employer] (ADA) may be used as an aid in the diagnosis of diabetes mellitus. HbA1c Suggested Diagnosis >=6.5% Diabetic 5.7% - 6.4% Pre-Diabetic <5.7% Non-Diabetic P-TSH Reviewed date:02/07/2025 08:17:27 AM Interpretation: Performing Lab: Notes/Report: Test performed by [facility] [address], [address], [place] [address] Renato Cobb MD, Color Developer CLIA: [id number] TSH 2.88 0.43-5.25 mU/L Estimated Average Glucose Reviewed date:02/07/2025 08:17:27 AM Interpretation: Performing Lab: Notes/Report: Test performed by [facility] [address] [place], [place] [address] [address], [address], [place] [address] Renato Cobb MD, Color Developer CLIA: [id number] Estimated Average Glucose (eAG) 151 Estimated Average Glucose (eAG) is calculated using the equation eAG = (28.7 x HbA1c) - 46.7 based on the guidelines established by the ADA. If the patient has certain diseases including kidney disease, sickle cell anemia, thalassemia, or is taking medications such as dapsone, erythropoietin, or iron, eAG should not be evaluated. P-TSH Reviewed date:10/20/2024 11:28:50 AM Interpretation:Normal Performing Lab: Notes/Report: Test performed by [facility] [address] [place] [address] , [place] [address] Renato Cobb MD, Color Developer CLIA: [id number] TSH 2.38 0.43-5.25 mU/L P-PSA Reviewed date:10/20/2024 11:28:50 AM Interpretation:4.34 Performing Lab: Notes/Report: Test performed by [facility] [address] , [place] [address] Renato Cobb MD, Color Developer CLIA: [id number] PSA 4.34 <4.00 ng/mL Please note this is an ultrasensitive PSA assay with a lower limit of detection of 0.014 ng/mL. This test is performed by the [employer] ECLIA methodology. Values obtained with different assay methods or kits cannot be directly compared. P-Lipid Panel Reviewed date:10/20/2024 11:28:49 AM Interpretation:Normal Performing Lab: Notes/Report: Test performed by [facility] [address] [place] [address] , [place] [address] Renato Cobb MD, Color Developer CLIA: [id number] Cholesterol 128 <200 mg/dL Triglycerides 147 <150 mg/dL HDL Cholesterol 40 >39 mg/dL Cholesterol / HDL Ratio 3.20 0.00-4.99 Ratio Non-HDL Cholesterol 88 <130 mg/dL LDL Cholesterol (Calculation) 59 <130 mg/dL LDL Cholesterol Levels* Less than 100 mg/dL Optimal 100 to 129 mg/dL Near Optimal/ Above Optimal 130 to 159 mg/dL Borderline High 160 to 189 mg/dL High 190 mg/dL and above Very High * Categories as recommended by the 2004 ATPIII guidelines LDL/HDL Ratio 1.5 <3.3 Ratio LDL Cholesterol Patient History Test Date: 11/22/2023 LDL Results: 39 Units: mg/dL % Change: - Test Date: 04/19/2024 LDL Results: 30 Units: mg/dL % Change: -23% Test Date: 10/18/2024 LDL Results: 59 Units: mg/dL % Change: +96% Glycohemoglobin A1c (in hous e) Reviewed date:10/20/2024 11:28:50 AM Interpretation:6.4 Performing Lab: Notes/Report: 6.4 glycohemoglobin 6.4% 5 - 6.5 % P-PSA Reviewed date:04/23/2024 09:16:16 PM Interpretation:5.23 Performing Lab: Notes/Report: Test performed by [facility] [address] , [place] [address] Renato Cobb MD, Color Developer CLIA: [id number] PSA 5.23 <4.00 ng/mL Please note this is an ultrasensitive PSA assay with a lower limit of detection of 0.014 ng/mL. This test is performed by the Becki ECLIA methodology. Values obtained with different assay methods or kits cannot be directly compared. P-Lipid Panel Reviewed date:04/23/2024 09:16:16 PM Interpretation:hdl 31 Performing Lab: Notes/Report: Test performed by [facility] [address], [place] [address] Renato Cobb MD, Color Developer CLIA: [id number] Cholesterol 76 <200 mg/dL Triglycerides 74 <150 mg/dL HDL Cholesterol 31 >39 mg/dL Cholesterol / HDL Ratio 2.45 0.00-4.99 Ratio Non-HDL Cholesterol 45 <130 mg/dL LDL Cholesterol (Calculation) 30 <130 mg/dL LDL Cholesterol Levels* Less than 100 mg/dL Optimal 100 to 129 mg/dL Near Optimal/ Above Optimal 130 to 159 mg/dL Borderline High 160 to 189 mg/dL High 190 mg/dL and above Very High * Categories as recommended by the 2004 ATPIII guidelines LDL/HDL Ratio 1.0 <3.3 Ratio LDL Cholesterol Patient History Test Date: 11/22/2023 LDL Results: 39 Units: mg/dL % Change: - Test Date: 04/19/2024 LDL Results: 30 Units: mg/dL % Change: -23% P-Comprehensive Metabolic Pa kaz (CMP) Reviewed date:04/23/2024 09:16:16 PM Interpretation:gluc 116, bun 25, Ca 7.5, a/g 0.9 Performing Lab: Notes/Report: Test performed by [employer] [address] [place] [address] , [address], [place] [address] Renato Cobb MD, Color Developer CLIA: [id number] Sodium 136 135-145 mEq/L Potassium 3.7 3.5-5.3 mEq/L Chloride 101 97-108 mEq/L CO2 29 22-32 mEq/L Glucose 116 65-99 mg/dL BUN 25 8-23 mg/dL Creatinine 1.10 0.70-1.30 mg/dL Calcium 7.5 8.6-10.4 mg/dL Results confi rmed, test repeated eGFR by Creatinine 71 >59 mL/min/1.73m2 Protein 7.9 6.0-8.3 g/dL Albumin 3.7 3.5-5.3 g/dL Alkaline Phosphatase 100 40-129 IU/L ALT (SGPT) 15 <5-55 IU/L AST (SGOT) 15 <5-46 IU/L Bilirubin, Total 0.5 <0.2-1.2 mg/dL A/G Ratio 0.9 1.1-2.5 mg/dL Glycohemoglobin A1c (in hous e) Reviewed date:04/23/2024 09:16:16 PM Interpretation:5.6% Performing Lab: Notes/Report: 5.6% glycohemoglobin 5.6% 5 - 6.5 % H-CBC Reviewed date:01/02/2025 08:41:58 AM Interpretation: Performing Lab: Notes/Report: WBC 6.0 4.8-10.8 K/mm3 RBC 3.70 4.60-6.20 M/mm3 HGB 12.4 14.1-18.0 g/dL HCT 36.8 42.0-52.0 % MCV 99.5 80-94 fl MCH 33.5 27.0-31.2 pg MCHC 33.7 31.8-35.4 g/dL RDW 15.1 11.5-17.5 % PLT 167 142-424 K/mm3 MPV 9.5 7.4-10.4 fl NE% 76.8 37.0-80.0 % LY% 8.7 10-50 % MO% 12.8 1.7-9.3 % EO% 0.2 0.1-12.0 % BA% 0.3 0.1-2.0 % NE# 4.6 1.8-7.8 K/mm3 LY# 0.5 0.7-4.5 K/mm3 MO# 0.8 0.1-1.0 K/mm3 EO# 0.0 0.0-0.4 K/mm3 BA# 0.0 0-0.2 K/mm3 H-BMP Reviewed date:01/02/2025 08:41:58 AM Interpretation: Performing Lab: Notes/Report: NA 136 136-145 mmol/L K 4.4 3.5-5.1 mmoL/L CL 101 98-107 mmol/L CO2 28 22.0-30.0 mmol/L GAP 11.4 5-15 mEq/L BUN 31 9-20 mg/dl CREATT 0.90 0.66-1.25 mg/dl CRCLE 84 50-200 mL/min GFRAA 100 >60 ML/MIN EGFR 82 >60 ml/min GLU 119 74-100 mg/dl CA 8.8 8.4-10.2 mg/dl Medications Medication SIG (Take, Route, Frequency, Duration) Notes Start Date End Date Status Atorvastatin Calcium 40 MG 1 tab(s) oral ly once a day (at bedtime) Active Amitriptyline HCl 50 MG 1.5 tab(s) orall y once a day (at bedtime) for 30 Active Lasix 20 MG 1 tablet Orally Once a day prn Active Aspirin 81 81 MG 1 tablet Orally Once a day Active Levothyroxine Sodium 75 MCG 1 tab(s) ora lly once a day Active Furosemide 20 MG 1 tablet Orally Once a day for 3 days Active Pregabalin 50 MG 1 capsule Orally Three times a day Active Omeprazole 40 mg TAKE ONE CAPSULE BY MOUTH EVERY DAY for 90 Active Tamsulosin HCl 0.4 mg TAKE ONE CAPSULE B Y MOUTH EVERY DAY Active hydroCHLOROthiazide 25 MG 1 tab(s) orall y As needed for 90 days Not-Taking Bisoprolol Fumarate 5 MG 1 tab(s) orally once a day Active Xarelto 20 MG 1 tablet with food Orally Once a day 10/19/2024 Active Jardiance 10 MG 1 tab(s) orally once a day (in the morning) Not-Taking Immunizations Vaccine Route Administration Date Status Comme nts COVID 19 Pfizer Unknown 12/24/2020 Administered COVID 19 Pfizer Unknown 01/16/2021 Administered COVID 19 Pfizer Unknown 10/08/2021 Administered Fluzone High Dose (65yr and older) Unknown 01/19/2019 Refused Prevnar (PCV13) IM Intramuscular 01/19/2019 Administered Shingrix Unknown 12/01/2018 Administered Shingrix IM Intramuscular 01/10/2019 Administered Tetanus Tdap-Adacel (over 7yrs) IM Intramuscular 01/19/2019 Administered Tetanus Tdap-Adacel (over 7yrs) Unknown 03/17/2023 Administered Problems Problem Type SNOMED Code ICD Code Onset Dates Problem Status W/U Status Risk Notes Problem 35129270 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) Active confirmed Problem 390751701 History of ASCVD (Z86.79) Active confirmed Problem 63768019 Essential hypertension (I10) Active confirmed Problem Diabetes mellitus with neuropathy (522419550) Diabetes mellitus with neuropathy (E11.40) Active confirmed Problem Benign prostatic hyperplasia (371728762) BPH (benign prostatic hyperplasia) (N40.0) Active confirmed Problem Peripheral neuropathy (846854944) Peripheral neuropathy (G62.9) Active confirmed Problem Hearing loss (84840778) Hearing loss (H91.90) Active confirmed Problem Chronic tension-type headache (276694414) Chronic tension-type headache, not intractable (G44.229) Active confirmed Problem 464745704 Chronic pain syndrome (G89.4) Active confirmed Problem Chronic atrial fibrillation (491745577) Chronic atrial fibrillation (I48.2) Active confirmed Problem Hyperlipidemia due to type 2 diabetes mellitus (disorder) (782552958336112) Hyperlipidemia associated with type 2 diabetes mellitus (E11.69) Active confirmed Problem Diabetes mellitus (93398387) Diabetes mellitus (E11.9) Active confirmed Problem Gastroesophageal reflux disease (797326002) GERD without esophagitis (K21.9) Active confirmed Problem Unsteady gait (94482268) Unsteady gait (R26.81) Active confirmed Problem 361934954 Gastroesophageal reflux disease without esophagitis (K21.9) Active confirmed Problem 522719324 Acquired hypothyroidism (E03.9) Active confirmed Problem 223096758 Benign non-nodul ar prostatic hyperplasia with lower urinary tract symptoms (N40.1) Active confirmed Problem 231724075 Bulging lumbar disc (M51.26) Active confirmed Problem 60522215 Cardiomyopathy (I42.9) Active confirmed Problem Multiple myeloma (114516876) Multiple myeloma (C90.00) Active confirmed Problem 083232982 Dyslipidemia (E78.5) Active confirmed Problem Skin ulcer (disorder) (98451309) Skin ulcer, limited to breakdown of skin (L98.491) Active confirmed Problem Restless legs (28649496) RLS (restless legs syndrome) (G25.81) Active confirmed Problem Peripheral circulatory disorder associated with diabetes mellitus (486638844) 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) Active confirmed Problem 72328350 Lumbar spondylos is with myelopathy (M47.16) Active confirmed Problem Significant coronary bypass graft disease (482589228) Coronary artery disease involving coronary bypass graft of [place] heart without angina pectoris (I25.810) Active confirmed Problem 554546212 Chronic atrial fibrillation (I48.20) Active confirmed Problem 490335894 Cardiac defibrillator in place (Z95.810) Active confirmed Problem 083600407 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) Active confirmed Problem Pseudogout (311598069) Pseudogout (M11.20) Active confirmed Vital Signs Heart Rate 100 /min 03/26/2025 Blood pressure diastolic 80 mm Hg 03/26/2025 Height 72 in 03/26/2025 Blood pressure systolic 120 mm Hg 03/26/2025 Weight 207.2 lbs 03/26/2025 BMI 28.1 kg/m2 03/26/2025 Encounters Encounter Location Date Provider [facility] [address] [place] [address] JENNY Marquis [id number] 04/19/2024 Nas Shea Essential hypertensi on I10 ; Acquired hypothyroidism E03.9 ; Dyslipidemia E78.5 ; ASCVD (arteriosclerotic cardiovascular disease) I25.10 ; Hearing loss H91.90 ; Diabetes mellitus E11.9 ; Peripheral neuropathy G62.9 ; Elevated PSA R97.20 ; Unsteady gait R26.81 and Multiple myeloma C90.00 [facility] [address] [place] [address] JENNY Marquis [id number] 10/18/2024 Nas Shea 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.59 ; Hyperlipidemia associated with type 2 diabetes mellitus E11.69 ; Diabetes mellitus with neuropathy E11.40 ; Essential hypertension I10 ; Acquired hypothyroidism E03.9 ; Dyslipidemia E78.5 ; ASCVD (arteriosclerotic cardiovascular disease) I25.10 ; Hearing loss H91.90 ; Diabetes mellitus E11.9 ; Peripheral neuropathy G62.9 ; Elevated PSA R97.20 ; Unsteady gait R26.81 ; Multiple myeloma C90.00 and Screening for prostate cancer Z12.5 [facility] [address] [place] [address] JENNY Marquis [id number] 01/21/2025 Jessie Velez Septic arthritis of knee M00.9 and Abrasions of multiple sites T07.XXXA [facility] [address] [place] [address] JENNY Marquis [id number] 02/05/2025 Nas Shea 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.59 ; Staphylococcal arthritis of right knee M00.061 ; Acquired hypothyroidism E03.9 ; Multiple myeloma C90.00 ; Diabetes mellitus with neuropathy E11.40 ; Dyslipidemia E78.5 ; Essential hypertension I10 ; Cardiomyopathy I42.9 and BMI 25.0-25.9,adult Z68.[address] [facility] [address] [facility] [address] [place], [place] [id number] 03/19/2025 Jessie Velez Edema leg R60.0 ; [...] hyperplasia) N40.0 and Chronic atrial fibrillation I48.20 [facility] [address] [facility] [address] [place], [place] [id number] 03/26/2025 Jessie Velez Hypotension I95.9 ; Edema of both legs R60.0 and BMI 28.0-28.9,adult Z68.28 [facility] [address] [facility] [address] [place], [place] [id number] 04/20/2024 R Jesus Monse [facility] [address] [facility] [address] [place], [place] [id number] 04/23/2024 R Jesus Monse [facility] [address] [facility] [address] [place], [place] [id number] 10/19/2024 R Jesus Monse ASCVD (arteriosclero tic cardiovascular disease) I25.10 [facility] [address] [facility] [address] [place], [place] [id number] 10/20/2024 R Jesus Monse [facility] [address] [facility] [address] [place], [place] [id number] 01/03/2025 R Jesus Monse [facility] [address] [facility] [address] [place], [place] [id number] 02/07/2025 R Jesus Monse [facility] [address] [facility] [address] [place], [place] [id number] 03/19/2025 Nas Shea Assessments Encounter Date Diagnosis (ICD Code) Assessment Notes Treatment Notes Treatment Clinical Notes Section Notes 04/19/2024 Essential hypertension (ICD-10 - I10) 04/19/2024 Acquired hypothyroidism (ICD-10 - E03.9) 10/18/2024 Hyperlipidemia associated with type 2 diabetes mellitus (ICD-10 - E11.69) 10/18/2024 Type 2 diabetes mellitus with other circulatory complication (ICD-10 - E11.59) 10/19/2024 ASCVD (arteriosclerotic cardiovascular disease) (ICD-10 - I25.10) 01/21/2025 Septic arthritis of knee (ICD-10 - M00.9) I did speak with Dr. De Souaz; their office is closed ; he did direct me to instruct the pt to call his office in the AM for time for FU tomorrow which pr will do 01/21/2025 Abrasions of multiple sites (ICD-10 - T07.XXXA) to keep clear adhesive dressing on until washes off ; to keep on greer cover atop 02/05/2025 Type 2 diabetes mellitus with other circulatory complication (ICD-10 - E11.59) 02/05/2025 Staphylococcal arthritis of right knee (ICD-10 - M00.061) 03/26/2025 Hypotension (ICD-10 - I95.9) BP has been normal; no med changes; to keep cardiology FU appt 03/19/2025 Hypotension (ICD-10 - I95.9) will continue to monitor BP; care with ambulation; continues to use walker with ambulation 03/19/2025 Edema leg (ICD-10 - R60.0) family notes that he has gained about 9# within the last week; after confering with Carlos GONZALEZ cardiology, pt will take 3 days of Lasix while monitoring BP and taking care with ambulation 03/26/2025 Edema of both legs (ICD-10 - R60.0) will continue to monitor; no med changes; to keep cardiology appt 03/19/2025 ASCVD (arteriosclerotic cardiovascular disease) (ICD-10 - I25.10) discussed with Carlos Dhillon cardiology ; reviewed labs and ECHO 02/05/2025 Acquired hypothyroidism (ICD-10 - E03.9) 04/19/2024 Dyslipidemia (ICD-10 - E78.5) 10/18/2024 Diabetes mellitus with neuropathy (ICD-10 - E11.40) 04/19/2024 ASCVD (arteriosclerotic cardiovascular disease) (ICD-10 - I25.10) 10/18/2024 Essential hypertension (ICD-10 - I10) 03/26/2025 BMI 28.0-28.9,adult (ICD-10 - Z68.28) 02/05/2025 Multiple myeloma (ICD-10 - C90.00) 03/19/2025 Cardiomyopathy (ICD-10 - I42.9) reviewed recent ECHO 03/19/2025 MGUS (monoclonal gammopathy of unknown significance) (ICD-10 - D47.2) 02/05/2025 Diabetes mellitus with neuropathy (ICD-10 - E11.40) 10/18/2024 Acquired hypothyroidism (ICD-10 - E03.9) 04/19/2024 Hearing loss (ICD-10 - H91.90) 04/19/2024 Diabetes mellitus (ICD-10 - E11.9) 10/18/2024 Dyslipidemia (ICD-10 - E78.5) 03/19/2025 Multiple myeloma (ICD-10 - C90.00) follows with dr. Eason; currently on vacation from [place] 02/05/2025 Dyslipidemia (ICD-10 - E78.5) 10/18/2024 ASCVD (arteriosclerotic cardiovascular disease) (ICD-10 - I25.10) 02/05/2025 Essential hypertension (ICD-10 - I10) 03/19/2025 PVD (peripheral vascular disease) (ICD-10 - I73.9) 04/19/2024 Peripheral neuropathy (ICD-10 - G62.9) Discussed trial of gabapentin but he wishes to defer as he is starting on oral chemotherapy next week and is rightly concerned about side effects and interactions of multiple medications. 02/05/2025 Cardiomyopathy (ICD-10 - I42.9) 04/19/2024 Elevated PSA (ICD-10 - R97.20) 10/18/2024 Hearing loss (ICD-10 - H91.90) 03/19/2025 Chronic atrial fibrillation (ICD-10 - I48.2) 03/19/2025 Type 2 diabetes mellitus with other circulatory complication (ICD-10 - E11.59) 10/18/2024 Diabetes mellitus (ICD-10 - E11.9) 02/05/2025 BMI 25.0-25.9,adult (ICD-10 - Z68.25) 04/19/2024 Unsteady gait (ICD-10 - R26.81) 04/19/2024 Multiple myeloma (ICD-10 - C90.00) Continue ongoing follow-up with Dr. Eason 10/18/2024 Peripheral neuropathy (ICD-10 - G62.9) 03/19/[address] (ICD-10 - Z95.810) 03/19/2025 Septic arthritis of knee (ICD-10 - M00.9) continue to follow with Dr. De Souza 10/18/2024 Elevated PSA (ICD-10 - R97.20) 10/18/2024 Unsteady gait (ICD-10 - R26.81) 03/19/2025 BMI 27.0-27.9,adult (ICD-10 - Z68.27) 03/19/2025 BPH (benign prostatic hyperplasia) (ICD-10 - N40.0) 10/18/2024 Multiple myeloma (ICD-10 - C90.00) Continue ongoing follow-up with Dr. Eason 10/18/2024 Screening for prostate cancer (ICD-10 - Z12.5) 03/19/2025 Chronic atrial fibrillation (ICD-10 - I48.20) 02/05/2025 Other Discharge summary with available lab/diagnostic imaging results obtained and reviewed. Discharge medication list reconciled. Appropriate counseling provided. Moderate Complexity Plan Of Treatment Next Appt Details Provider Name:Nas Solis, 05/07/2025 09:15:00 AM, [address], [place], [place], [id number], Insurance Providers Payer Name Payer Address Payer Phone Subscriber Number Group Number Insured Name Patient Relationship to Insured Coverage Start Date Coverage End Date MEDICARE PART B [address] [address] [place] JEN[place] bowden [id number] KEV DICK Self - patient is the insured [employer] [facility] [address] [place] [address] [id number] KEV DICK Self - patient is the insured Medical (General) History Medical History History ICD Code Hypertension ASCVD HLP hearing aids Declines Prevnar 05/2016, 12/2016 Atrial Fib - converted - 01/2016 Gallstone pancreatitis - 08/2016 Peripheral neuropathy MGUS - monoclonal gammopathy of undeterm ined significance/ Dr. Parker Elevated PSA 4.3 (09/2019) Type 2 diabetes Normal CTA of lower extremities 02/[address] Malik Multiple myeloma - dx 2022 - Dr. Eason Surgical History Surgery Date(Month/Year) Coronary stents 03/08/07 Open Heart Surgery-Dr Mott @ [facility] 2015 thoracentesis 12/2015 Laparoscopic cholecystectomy - Dr. Rolanda carballo 09/06/16 cardiac defibirilltor placed-Dr Yates 07/04/2020 cataract surgery-right eye 12/2020 Knee Surgery - Due to Infection -02/17 25 Hospitalization History Reason Date(Month/Year) [facility] UTC - Fall 11/14/2023 [facility]-tachycardia 07/02 to 07/03/2020 Left heart cath/[place]/ normal flow of revascularized vessels 02/2017 [facility] pancreatitis 09/02/16 [facility] ER-Afib 01/2016 C-scope - Dr. Kimball 09/2013 [facility] ER-suture to pinky finger of left [place] 09/25/09
--- OUTSIDE RECORDS SUMMARY | 2025-04-15 13:46 | XMS_ITS | Encounter Summary ---
Author Organization Healthcare Address [address] [place] [address] Care Team Providers Care Food Management Aide Name Role Phone Kai Shea MD Primary Care Provider [phone] Jessica Perales DO Unavailable [phone] Encounter Details Date Type Department Care Team (Late st Contact Info) Description 01/15/2025 Lab Requisition [facility] [address] [place] [address] Sara Alegre [address] [place] [address] Encounter for general adult medical examination without [...] place to sleep or slept in a long-term (including now)? No 05/04/2024 PHQ-9 Answer Date [...] drink first t vane in the morning (EYE-HEARING THERAPY DIRECTOR) to steady your nerves or to get [...] Appointment [facility] Radiology [address] [place] [address] documented as of this encounter Procedures Procedure Name Priority Date/Time Associated Diagnosis Comments BODY FLUID CELL COUNT W/ MANUAL DIFFERENTIAL STAT 01/15/2025 12:10 PM EDT Encounter for general adult medical examination without abnormal findings BODY FLUID, CYTOSPIN, PATHOLOGIST INTERPRETATION STAT 01/15/2025 12:10 PM EDT Encounter for general adult medical examination without abnormal findings JOINT FLUID CRYSTALS Routine 01/15/2025 12:10 PM EDT Encounter for general adult medical examination without abnormal findings documented in this encounter Results * Body fluid, cytospin, pathologist interpretation (01/15/2025 12:10 PM EDT) Specimen Type Joint Fluid LAB HEMATOLOGY METHOD 01/16/2025 4:15 PM EDT [facility] Specimen Source, Body Fluid LAB HEMATOLOGY METHOD 01/16/2025 4:15 PM EDT [facility] Clinical Diagnosis, Body Fluid Joint effusion LAB HEMATOLOGY METHOD 01/16/2025 4:15 PM EDT [facility] Interpretation , Body Fluid Acute inflammatory cells; correlate with Gram stain/culture and/or crystal analysis. A resident was involved in the service. I attest I examined the relevant preparations for the specimens and confirmed the diagnosis or interpretation. 01/16/2025 4:15 PM EDT [facility] Pathologist Signature, Body Fluid 01/16/2025 4:15 PM EDT [facility] Comment:Reviewed by: Isabel Donohue MD LAB CP ASR DISCLAIMER Yes 01/16/2025 4:15 PM EDT [facility] Joint Fluid 01/15/2025 12:1 0 PM EDT 01/15/2025 2:41 PM EDT us Sara Codey LAB BODY FLUIDS AND STOOLS ORDER MARYLIN Final Result Performing Organization Address City/[facility]/ZIP Co de Phone Number [facility] [address] [place] [address] * (ABNORMAL) Joint Fluid Crystals (01/15/2025 12:10 PM EDT) Crystals, Joint Fluid Calcium Pyrophosphate Crystals Present(A) No Crystals Present 01/15/2025 7:55 PM EDT [facility] Joint Fluid 01/15/2025 12:1 0 PM EDT 01/15/2025 2:41 PM EDT Narrative [facility] - 01/15/2025 7:55 PM EDT Under compensated polarized light microscopy rhomboidal positively birefringent crystals are seen consistent with Calcium Pyrophosphate. The presence of steroid crystals may result in a false positive. Correlate results with recent history up to 2 months of steroid injection. Sara Codey LAB BODY FLUIDS AND STOOLS ORDER MARYLIN Final Result Performing Organization Address [facility] Co de Phone Number [facility] [address] [place] [address] * (ABNORMAL) Body Fluid Cell Count w/ Diff (01/15/2025 12:10 PM EDT) Color, Body fluid Red LAB HEMATOLOGY METHOD 01/15/2025 7:53 PM EDT [facility] Appearance, Body fluid Cloudy(A) LAB HEMATOLOGY METHOD 01/15/2025 7:53 PM EDT [facility] Volume, Body fluid 4.0 cc LAB HEMATOLOGY METHOD 01/15/2025 7:53 PM EDT [facility] Fluid Container Specimen received in Sodium Heparin LAB HEMATOLOGY METHOD 01/15/2025 7:53 PM EDT [facility] Red Blood Cell Count, Body fluid 45,500 uL LAB HEMATOLOGY METHOD 01/15/2025 7:53 PM EDT [facility] Comment:Clumps present, coun t may be affected. Test performed by manual method. Total Nucleated Cell Count, Body fluid 75,000 uL LAB HEMATOLOGY METHOD 01/15/2025 7:53 PM EDT [facility] Comment:Clumps present, coun t may be affected. Test performed by manual method. Neutrophils %, Body fluid 93 % LAB HEMATOLOGY METHOD 01/15/2025 7:53 PM EDT [facility] Lymphocytes %, Body fluid 0 % LAB HEMATOLOGY METHOD 01/15/2025 7:53 PM EDT [facility] Monocytes/Macro phages %, Body fluid 7 % LAB HEMATOLOGY METHOD 01/15/2025 7:53 PM EDT [facility] Eosinophils %, Body fluid 0 % LAB HEMATOLOGY METHOD 01/15/2025 7:53 PM EDT [facility] Lining/Mesothel ial Cells %, Body fluid 0 % LAB HEMATOLOGY METHOD 01/15/2025 7:53 PM EDT [facility] Neutrophils Absolute (PMN), Body fluid 69,750 uL LAB HEMATOLOGY METHOD 01/15/2025 7:53 PM EDT [facility] Lymphocytes Absolute, Body fluid 0 uL LAB HEMATOLOGY METHOD 01/15/2025 7:53 PM EDT [facility] Monocytes/Macro phages Absolute, Body fluid 5,250 uL LAB HEMATOLOGY METHOD 01/15/2025 7:53 PM EDT [facility] Eosinophils Absolute, Body fluid 0 uL LAB HEMATOLOGY METHOD 01/15/2025 7:53 PM EDT [facility] Basophils Absolute, Body fluid 0 uL LAB HEMATOLOGY METHOD 01/15/2025 7:53 PM EDT [facility] Lining/Mesothel ial Cells Absolute, Body fluid 0 uL LAB HEMATOLOGY METHOD 01/15/2025 7:53 PM EDT [facility] Comment, Body fluid None LAB HEMATOLOGY METHOD 01/15/2025 7:53 PM EDT [facility] Comment:This is an appended report. These results have been appended to a previously preliminary verified report. Basophils %, Body fluid 0 % LAB HEMATOLOGY METHOD 01/15/2025 7:53 PM EDT [facility] Joint Fluid 01/15/2025 12:1 0 PM EDT 01/15/2025 2:41 PM EDT Sara Alegre LAB BODY FLUIDS AND STOOLS ORDERABLES NO SPECIMEN TYPE/SOURCE Final Result [facility] [address] [place] [address] documented in this encounter Visit Diagnoses Diagnosis [...] documented as of this encounter Care Teams Food Management Aide Relationship Specialty Start Date End Date Kai Shea MD [address] [place] [address] PCP - General 03/13/21 Jessica Perales DO [address] [place] [address] Resident Neurology 06/16/21 documented as of this encounter
--- OUTSIDE RECORDS SUMMARY | 2025-04-15 13:46 | XMS_ITS | Encounter Summary ---
Author Organization [place] [address] Care Team Providers Care Rn Acute Name Role Phone Unavailable Primary Care Provider Unavailabl e Encounter Details Date Type Department Care Team (Late st Contact Info) Description 01/07/2023 Orders Only [facility] [place] [place] [id number] Barbara Bess MD [address] [place] [phone] Social History Tobacco Use Types Packs/Day Years [...] Name Priority Date/Time Associated Diagnosis Comments NEOGENOMICS PLASMA CELL MYELOMA PROGNOSTIC PANEL Routine 01/07/2023 9:45 AM EST documented in this encounter Results * NEOGENOMICS PLASMA CELL MYELOMA PROGNOSTIC PANEL (01/07/2023 9:45 AM EST) 01/07/2023 9:45 AM EST Narrative [facility] - 01/16/2023 11:22 AM EDT Requesting Provider: GIOVANNA Chaney Specimen = [id number] us Barbara Bess MD PATHOLOGY ORDERABLES Final Resul t Performing Organization Address City/State/[facility] Co de Phone Number [facility] [address] [place] [address] documented in this encounter Visit Diagnoses Not on filedocumented in this encounter
--- OUTSIDE RECORDS SUMMARY | 2025-04-15 13:46 | XMS_ITS | Encounter Summary ---
Author Organization [facility] Address [address] [place] [address] Care Team Providers Care Senior Receptionist Name Role Phone Kai Shea MD Primary Care Provider [phone] Jessica Perales DO Unavailable [phone] Encounter Details Date Type Department Care Team (Late st Contact Info) Description 09/17/2021 Lab Requisition [facility] [address] [place] [address] Mar Diaz MD [address] [facility] [address] [place] [phone] Decreased white blood cell count, unspecified Social History Tobacco Use Types Packs/Day Years Used Date Smoking Tobacco: Never Smokeless Tobacco: Never Alcohol Use Standard Drinks/Week Comments Never 0 (1 standard drink = 0.6 oz pur e alcohol) Sex and Gender Information Value Date Recorded Sex Assigned at Not on file Legal Sex Male 7:44 PM EDT Gender Identity Not on file Sexual Orientation Not on file documented as of this encounter Plan of Treatment Upcoming Encounters Date Type Department Care Team (Late st Contact Info) Description 09/23/2025 11:30 AM EST Appointment [facility] Radiology [address] [place] [address] documented as of this encounter Procedures Procedure Name Priority Date/Time Associated Diagnosis Comments BONE MARROW EXAM CONSULT Routine 09/17/2021 9:40 AM EST Decreased white blood cell count, unspecified documented in this encounter Results * Bone Marrow Consult (09/17/2021 9:40 AM EST) Case Report Bone Marrow Case: [id number] Authorizing Provider: Mar Diaz MD Collected: 09/17/2021939 Ordering Location: [facility] Received: 09/17/2021 0940 Pathologist: Jen Tesfaye MD Specimen: Bone Marrow Biopsy, [id number] 09/21/2021 1:36 PM EST [facility] Final Diagnosis PERIPHERAL BLOOD AND BONE MARROW, POSTERIOR ILIAC CREST (PERIPHERAL SMEAR, ASPIRATE SMEAR, AND CORE BIOPSY): - KAPPA RESECTED PLASMA CELL NEOPLASM, 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 Correlation with complete radiologic and laboratory studies is required for final diagnosis. 09/21/2021 1:36 PM EST [facility] Clinical Information D72.819 - Decreased white blood cell count, unspecified [ICD-10-CM] 09/21/2021 1:36 PM EST [facility] CBC and Differential PERIPHERAL BLOOD: No results found for requested labs within last 200 hours. DIFFERENTIAL:No results found for requested labs within last 200 hours. Leukopenia with mild lymphopenia and mild neutropenia.Macro cytic, normocytic red blood cells without anemia. Adequate platelets.no circulating plasma cells. 09/21/2021 1:36 PM EST [facility] Bone Marrow Differential BONE MARROW DIFFERENTIAL: 200 cells Normal Patient Neutrophils 15-50 12 Metamyelocytes 4-19 19 Myelocytes 1-18 23 Promyelocytes 1-8 0 Blasts 0-2 0 Monocytes 0-5 1 Erythroid 16-38 26 Lymphocytes 3-24 5 Eosinophils 0-6 7 Basophils 0-2 1 Plasma cells 0-4 6 Other 09/21/2021 1:36 PM EST [facility] Bone Marrow Aspirate and Biopsy The bone marrow aspirate smears show several cellular marrow particles with maturing trilineage hematopoiesis. Myeloid precursors are maturing . Blasts are not increased. Erythropoiesis is hospitality ambassador. Plasma cells are increased and account for 6% of total cellularity.There are occasional large atypical plasma cells with frequent binucleation. The bone marrow core biopsy shows aspiration and crush artifact. In the intact areas,the marrow cellularity is difficult to estimate due to fragmentation, however it appears slightly hypercellular. The clot section has better representation of overall cellularity and cellular composition. It shows increased plasma cells in a background of trilineage hematopoiesis. CD138 stain on the clot section highlights increased plasma cells ranging from 5-25% including occasional focal clusters.The majority of plasma cells are positive for CD117. The majority of plasma cells are positive for kappa-MAJOR, with only few scattered LAMBDA-MAJOR positive forms are present. Per outside report: Flow cytometry: Restricted clonal plasma cell population, CD 56 +/CD117 + Cytogenetic analysis: Normal male karyotype, 46 XY FISH myeloma panel: Abnormal myeloma FISH panel.Monos any for chromosome 13. Gain of 11q/CCND1 09/21/2021 1:36 PM EST [facility] Gross Description A. [id number] Received along with a corresponding pathology report from [facility] are 19 slide(s) labeled outside case: [id number] collected on 01/08/2021. 09/21/2021 1:36 PM EST [facility] Note: A resident was involved in the service. I attest I examined the relevant preparations for the specimens and confirmed the diagnosis or interpretation. 09/21/2021 1:36 PM EST [facility] Bone Marrow Specimen from bone marrow obtained by biopsy / Unknown 09/17/2021 9:40 AM EST 09/17/2021 9:40 AM EST us Mar Diaz MD LAB PATHOLOGY ORDERABLES Rosa godinez Result [facility] [address] [place] [address] documented in this encounter Visit Diagnoses Diagnosis Decreased white blood cell count, unspecified documented in this encounter Additional Health Concerns Assessment Noted Time A fall risk assessment has been complete d for the patient 2021 1:47 PM EDT documented as of this encounter Care Teams Senior Receptionist Relationship Specialty Start Date End Date Kai Shea MD [address] [place] [address] PCP - General 03/13/21 Jessica Perales DO [address] [facility] [address] [place] [phone] Resident Neurology 06/16/21 documented as of this encounter
[2025-04-15 14:45] LABS: Anion Gap 8.9 mEq/L (5-15); Blood Urea Nitrogen 24 mg/dl (9-20); Calcium 9.4 mg/dl (8.4-10.2); Carbon Dioxide 28 mmol/L (22.0-30.0); Chloride 104 mmol/L (98-107); Estimated Glomerular Filt Rate 73 ml/min (>60); GFR (African American) 88 ML/MIN (>60); Glucose 199 mg/dl (74-100); Magnesium 1.6 mg/dl (1.6-2.3); Potassium 3.9 mmoL/L (3.5-5.1); Sodium 137 mmol/L (136-145)
[2025-04-15 14:52] LABS: NT Pro Brain Natriuretic Pep. 2600 pg/mL (0-125)
== END 2025-04-15 23:59 | disposition home or self-care (01) ==
LOC: LAB 13:41
PROVIDERS: PCP Family Medicine; Visit Provider Physician Assistant
DX: I25.10 Atherosclerotic heart disease of native coronary artery without angina pectoris (principal); I11.0 Hypertensive heart disease with heart failure; I50.23 Acute on chronic systolic (congestive) heart failure
CPT/HCPCS: 36415; 80048; 83735; 83880

== ENCOUNTER 2025-04-22 08:14 | Day surgery (SDC) | payer MEDICARE, BC, SELFPAY ==
[2025-04-22] VITALS (12 sets, daily range): BP systolic 100–144; BP diastolic 58–91; PULSE 65–81; RESP 18–20; O2SAT 93–98; BMI 27.6
--- NOTE | 2025-04-22 07:55 | IR_ITS ---
APPROVED REPORT Patient Location: Outpatient PROCEDURES Left heart catheterization Left ventriculogram Selective coronary angiogram Left internal mammary angiography Selective engagement of the saphenous vein graft supplying the circumflex artery which then skips to the right coronary artery/posterior descending artery INDICATION Coronary artery disease, Ischemic cardiomyopathy, Worsening angina pectoris, Informed consent was obtained prior to the procedure. COMPLICATIONS None Estimated Blood Loss: Less than 10 mls TECHNIQUE One percent lidocaine used to anesthetize the left groin. The left femoral artery was accessed via the Seldinger technique and a 5 Senegalese sheath was placed in the left femoral artery. A JL 4, JR4 catheter were used to perform left heart catheterization, left ventriculogram selective coronary angiography as well as selective engagement of the single saphenous graft which is a skip graft from the circumflex artery to the posterior descending artery off the right coronary and the left internal mammary artery. At the end the procedure the apparatus was removed the groin is reprepped closure change sheath was removed and hemostasis was achieved using Perclose device patient was transferred to the postop putting in stable addition ANGIOGRAPHIC RESULTS The left main artery Has an ostial 40 to 50% stenosis The left anterior descending artery Is proximally patent and then gives off 1 septal millwright. There are 3 small diagonal arteries which are all patent. The LAD is then subtotally occluded and scant competitive flow is identified from the DURAND graft The circumflex artery Approximately occluded The right coronary artery Proximally occluded The AVILA ventriculogram reveals Severely dilated global hypokinesis estimate ejection fraction 25% The left ventricular end-diastolic pressure 15 mmHg DURAND to LAD patent Saphenous vein graft to the first obtuse marginal artery is patent. The first OM is small caliber and then backfills a second obtuse marginal artery which is slightly larger. The saphenous vein graft anastomosis onto the distal obtuse marginal artery. The retrograde flow up the obtuse marginal artery is tortuous small caliber and has a 90% focal stenosis. This then fills a slightly larger yet still small second obtuse marginal artery. Saphenous vein graft then skips to a posterior descending artery IMPRESSION Coronary artery disease as described above Severe stenosis in the first obtuse marginal artery which is virtually technically impossible to stent and would be considered high risk with a high likelihood of shutting the entire 1st and 2nd obtuse marginal artery down with intervention. Patent DURAND to LAD PLAN 1. Patient is on high dose of amitriptyline. There are reports of fatigue and lethargy. Amitriptyline is notorious for anticholinergic side effects and I recommend discontinuing this medicine. 2. Patient may be a candidate for Cordella based on LV dysfunction and worsening heart failure 3. Losartan will be increased from 25 daily to 25 mg twice daily 4. If patient is RV pacing more than 20% of the time I would recommend consideration for upgrading the AICD to cardiac resynchronization therapy 5. Aggressive medical management 6. LDL less than 55 to be achieved with high intensity statin Electronically signed by : Shawn Yates MD 04/22/2025 10:44:15
[2025-04-22 09:02] LABS: Basophils % 0.8 % (0.1-2.0); Eosinophils # 0.1 Kmm3 (0.0-0.4); Eosinophils % 1.3 % (0.1-12.0); Hematocrit 40.7 % (42.0-52.0); Immature Granulocytes # 0.01 10^3uL; Immature Granulocytes % 0.3 %; Lymphocytes # 0.5 K/mm3 (0.7-4.5); Lymphocytes % 13.1 % (10-50); Mean Corpuscular HGB Conc 31.9 g/dL (31.8-35.4); Mean Corpuscular Volume 96.9 fl (80-94); Mean Platelet Volume 9.7 fl (7.4-10.4); Monocytes # 0.3 K/mm3 (0.1-1.0); Monocytes % 8.6 % (1.7-9.3); Neutrophils # 2.9 K/mm3 (1.8-7.8); Neutrophils % 75.9 % (37.0-80.0); Nucleated Red Blood Cells # 0 10^3/uL; Nucleated Red Blood Cells % 0 %; Platelet Count 156 K/mm3 (142-424); White Blood Count 3.8 K/mm3 (4.8-10.8)
[2025-04-22 09:05] LABS: Chloride 99 mmol/L (98-107); Potassium 3.6 mmoL/L (3.5-5.1); Sodium 140 mmol/L (136-145)
[2025-04-22 09:08] LABS: Anion Gap 12.6 mEq/L (5-15); Blood Urea Nitrogen 23 mg/dl (9-20); Calcium 8.5 mg/dl (8.4-10.2); Carbon Dioxide 32 mmol/L (22.0-30.0); Creatinine Clearance Estimated 85 mL/min (50-200); Estimated Glomerular Filt Rate 94 ml/min (>60); GFR (African American) 114 ML/MIN (>60); Glucose 122 mg/dl (74-100)
[2025-04-22 09:19] LABS: MANUAL DIFFERENTIAL MANUAL DIFFERENTIAL (MANUAL DIFF)
[2025-04-22] MEDS: HEPARIN 1,000 UNITS/500ML NS (CATH LAB) 3000 UNIT IV (09:43)
[2025-04-22] MEDS: diphenhydrAMINE 50MG/ML VIAL 50 MG IV (09:43)
[2025-04-22] MEDS: 0.9 % SODIUM CHLORIDE 500 ML 25 ML IV (09:43)
[2025-04-22] MEDS: LIDOCAINE 1% 10ML MDV 10 ML IJ (09:44)
[2025-04-22] MEDS: FENTANYL 100MCG/2ML VIAL 50 MCG IV (09:44)
[2025-04-22] MEDS: MIDAZOLAM HCL 1MG/ML 5ML VIAL 1 MG IV (09:44)
[2025-04-22 10:42] LABS: Eosinophils % 2 % (0-3); Lymphocytes % 14 % (10-50); Monocytes % 6 % (2-9); Neutrophils % 78 % (42-76); Platelet Estimate Normal; RBC Morphology Normal; Total Cells Counted 100
--- NOTE | 2025-04-22 11:19 | SUR.PHASEII ---
Pt daughter concerned about blood backing up in tube of his saline lock. IV tubing flushed and draws back well, no complaints or signs of infiltration while flushing
[2025-04-22] MEDS: IOPAMIDOL-370 (76%);100ML BOTTLE 60 ML IV (12:59)
== END 2025-04-22 13:10 | disposition home or self-care (01) ==
PROVIDERS: PCP Family Medicine; Visit Provider Internal Medicine
PROC: 4A023N7 Measurement of Cardiac Sampling and Pressure, Left Heart, Percutaneous Approach (ICD-10-PCS; CPT 93452; principal; 2025-04-22 07:00)
DX: I25.118 Atherosclerotic heart disease of native coronary artery with other forms of angina pectoris (principal); I50.23 Acute on chronic systolic (congestive) heart failure; R06.09 Other forms of dyspnea; I48.91 Unspecified atrial fibrillation; R93.6 Abnormal findings on diagnostic imaging of limbs; E11.40 Type 2 diabetes mellitus with diabetic neuropathy, unspecified; E78.5 Hyperlipidemia, unspecified; I47.29 Other ventricular tachycardia; D47.2 Monoclonal gammopathy; G47.33 Obstructive sleep apnea (adult) (pediatric); I73.9 Peripheral vascular disease, unspecified; G20.A1 Parkinson's disease without dyskinesia, without mention of fluctuations; E03.9 Hypothyroidism, unspecified; Z95.1 Presence of aortocoronary bypass graft; Z95.810 Presence of automatic (implantable) cardiac defibrillator; Z79.01 Long term (current) use of anticoagulants; Z79.84 Long term (current) use of oral hypoglycemic drugs; Z79.82 Long term (current) use of aspirin; Z79.899 Other long term (current) drug therapy; Z79.890 Hormone replacement therapy
CPT/HCPCS: 93459; 80048; 85007; 85025; 85027; 99152; C1725; C1760; C1769; C1894; J1200; J1644; J3010; J7040; Q9967

== ENCOUNTER 2025-04-24 09:51 | Day surgery (SDC) | payer MEDICARE, BC, SELFPAY ==
[2025-04-24] VITALS (7 sets, daily range): BP systolic 126–142; BP diastolic 75–94; PULSE 65–90; RESP 16–20; TEMP 36.2; O2SAT 95–99; BMI 27.4
--- NOTE | 2025-04-24 07:50 | IR_ITS ---
APPROVED REPORT Patient Location: Outpatient Special Needs Caregiver: RT Lavon (R) PROCEDURES 1. Pocket Revision 2. Placement of left ventricular sensing pacing lead via the coronary sinus. 3. Permanent cardiac resynchronization therapy with ICD implantation/biventricular pacemaker. INDICATION Systolic Congestive Heart Failure, ejection <35%, Wide QRS >120ms, [place] Heart Assoication Class 3 Congestive Heart Failure Informed consent was obtained prior to the procedure. COMPLICATIONS none Estimated Blood Loss: less than 10ml TECHNIQUE 1% lidocaine with epinephrine used to anesthetize the left anterior aspect of the chest. Scalpel was used to make the initial cutaneous incision and to dissect down into the fascia. The generator was removed from the existing pocket. Digital manipulation was required along with intermittent usage of scalpel in order to revise the pocket. The leads were removed from the old generator. The patient was then placed in Trendelenburg position and the subclavian vein was accessed 1 time via the Selinger technique. A 9.5 Sami sheath was placed under fluoroscopic guidance into the subclavian vein. The dilator was removed from the sheath. Under fluoroscopic guidance the coronary sinus was cannulated and confirmed with an injection of contrast. An 0.014 wire was then placed distally in the inferior posterior segment of the left ventricle via the coronary sinus and the left ventricular lead was advanced. After achieving excellent thresholds and interrogation numbers the sheath was then peeled away and the lead was then secured into place using silk suture. Ancef was used to flush the pocket and the 3 leads were attached to the TRAINS DISPATCHER SUPERVISOR-D generator. The generator was then secured into place by heavy silk suture. Monocryl was used to close the subcutaneous layers while frank were used to close the subcutaneous layers while frank were used to close the cutaneous layer. A pressure dressing was placed and the patient was transferred to the postop holding area in stable condition for postoperative care. INTERROGATION Explanted Generator Model number: [id number] Explanted Generator Serial number: [id number] Implanted Generator Model number: [id number] Implanted Generator Serial number: [id number] Atrial lead model number: 7841 Atrial lead serial number: [id number] P-wave: 0.5 - 1mV Impedance: 500ohms Right Ventricular lead model number: 0675 Right Ventricular lead serial number: [id number] R-wave: >12mV Threshold: .845V@.05mSec Left Ventricular lead model number: 1458Q Left Ventricular lead serial number: [id number] Impedance: 500/1050ohms Threshold: .625V@0.5mS hV: 38ohms Pacing Parameters: Mode: DDTR Base/Max Track:70 ppm / 130 ppm No diaphragmatic stimulation at 10 volts. IMPRESSION 1. Pocket formation for biventricular pacemaker generator with cardiac resynchronization/defibrillator therapy. 2. Placement of left ventricular sensing pacing lead via the coronary sinus. 3. Permanent cardiac resynchronization therapy with ICD implantation/biventricular pacemaker. PLAN 1. post-op wound care Electronically signed by : Shawn Yates MD 04/26/2025 13:22:38
[2025-04-24 10:25] LABS: Hematocrit 43.3 % (42.0-52.0); Hemoglobin 14.2 g/dL (14.1-18.0); Immature Granulocytes # 0.02 10^3uL; Immature Granulocytes % 0.5 %; Lymphocytes # 0.5 K/mm3 (0.7-4.5); Lymphocytes % 12.6 % (10-50); Mean Corpuscular HGB Conc 32.8 g/dL (31.8-35.4); Mean Corpuscular Hemoglobin 31.4 pg (27.0-31.2); Mean Corpuscular Volume 95.8 fl (80-94); Mean Platelet Volume 9.4 fl (7.4-10.4); Monocytes # 0.4 K/mm3 (0.1-1.0); Monocytes % 8.4 % (1.7-9.3); Neutrophils # 3.2 K/mm3 (1.8-7.8); Neutrophils % 76.5 % (37.0-80.0); Nucleated Red Blood Cells # 0 10^3/uL; Nucleated Red Blood Cells % 0 %; Platelet Count 150 K/mm3 (142-424); Red Blood Count 4.52 M/mm3 (4.60-6.20); Red Cell Distribution Width-SD 49.1 fL; White Blood Count 4.2 K/mm3 (4.8-10.8)
[2025-04-24 10:29] LABS: Chloride 100 mmol/L (98-107); Sodium 142 mmol/L (136-145)
[2025-04-24 10:30] LABS: Potassium 3.5 mmoL/L (3.5-5.1)
[2025-04-24 10:33] LABS: Anion Gap 14.5 mEq/L (5-15); Blood Urea Nitrogen 21 mg/dl (9-20); Calcium 9.3 mg/dl (8.4-10.2); Carbon Dioxide 31 mmol/L (22.0-30.0); Creatinine Clearance Estimated 84 mL/min (50-200); Estimated Glomerular Filt Rate 73 ml/min (>60); GFR (African American) 88 ML/MIN (>60); Glucose 124 mg/dl (74-100)
[2025-04-24 10:38] LABS: MANUAL DIFFERENTIAL MANUAL DIFFERENTIAL (MANUAL DIFF)
[2025-04-24 11:14] LABS: Eosinophils % 1 % (0-3); Lymphocytes % 15 % (10-50); Monocytes % 4 % (2-9); Neutrophils % 80 % (42-76); Platelet Estimate Normal; RBC Morphology Normal; Total Cells Counted 100
[2025-04-24] MEDS: CEFAZOLIN SODIUM 1 GM in 0.9 % SODIUM CHLORIDE 50 ML IV (11:38)
[2025-04-24] MEDS: 0.9 % SODIUM CHLORIDE 1000ML 1,000 ML 25 ML IV (11:39)
[2025-04-24] MEDS: LIDOCAINE 1% W/EPI 1:100,000 20ML VIAL 20 ML SQ (11:40)
[2025-04-24] MEDS: CEFAZOLIN 1GM VIAL 1 GM TP (11:42)
--- NOTE | 2025-04-24 12:41 | XR_ITS ---
FINAL REPORT TECHNIQUE: Single view chest CLINICAL HISTORY: Confirm pacemaker/AID placement FINDINGS: A single view of the chest was obtained. Patient is status post CABG. A left-sided pacemaker is in place. The heart and mediastinum are within normal limits. The lungs are clear. There is no pneumothorax. Old left rib fractures are noted. IMPRESSION: Left-sided pacemaker without pneumothorax. Reviewed, Interpreted and Dictated by Katlin Chiang MD Transcribed by Lyric Hodge Authenticated and . [facility]
[2025-04-24] MEDS: IOPAMIDOL-370 (76%);100ML BOTTLE 20 ML IV (13:47)
== END 2025-04-24 14:40 | disposition home or self-care (01) ==
PROVIDERS: PCP Family Medicine; Visit Provider Internal Medicine
PROC: 0JH609Z Insertion of Cardiac Resynchronization Defibrillator Pulse Generator into Chest Subcutaneous Tissue and Fascia, Open Approach (ICD-10-PCS; CPT 33249; principal; 2025-04-24 11:15)
PROC: 0JWT0PZ Revision of Cardiac Rhythm Related Device in Trunk Subcutaneous Tissue and Fascia, Open Approach (ICD-10-PCS; CPT 33223; 2025-04-24 11:15)
DX: T82.897A Other specified complication of cardiac prosthetic devices, implants and grafts, initial encounter; I11.0 Hypertensive heart disease with heart failure; I50.20 Unspecified systolic (congestive) heart failure; R93.1 Abnormal findings on diagnostic imaging of heart and coronary circulation; I25.10 Atherosclerotic heart disease of native coronary artery without angina pectoris; E11.40 Type 2 diabetes mellitus with diabetic neuropathy, unspecified; I73.9 Peripheral vascular disease, unspecified; E78.5 Hyperlipidemia, unspecified; E03.9 Hypothyroidism, unspecified; G20.A1 Parkinson's disease without dyskinesia, without mention of fluctuations; G47.33 Obstructive sleep apnea (adult) (pediatric); Z79.84 Long term (current) use of oral hypoglycemic drugs; Z79.890 Hormone replacement therapy; Z79.82 Long term (current) use of aspirin; Z79.2 Long term (current) use of antibiotics; Z95.1 Presence of aortocoronary bypass graft; I42.8 Other cardiomyopathies
CPT/HCPCS: 33223; 33225; 33264; 71045; 80048; 85007; 85025; 85027; C1769; C1882; C1900; J2003; J2004; J2704; J7030; Q9967

== ENCOUNTER 2025-04-25 10:48 | Outpatient (RCR) | payer MEDICARE, BC, SELFPAY | END 2025-04-25 23:59 | disposition home or self-care (01) | LOC: PT 10:48 | PROVIDERS: Visit Provider Orthopaedic Surgery | DX: M17.0 Bilateral primary osteoarthritis of knee (principal) | CPT/HCPCS: 97760 ==

== ENCOUNTER 2025-05-03 15:37 | Emergency (ER) | payer MEDICARE, BC, SELFPAY ==
--- OUTSIDE RECORDS SUMMARY | 2025-03-20 20:00 | XMS_ITS | Clinical Summary ---
Author Organization Unknown Care Team Providers Care House Worker General Name Role Phone KRISTEN MANJARREZ, RAÚL Unavailable Unavailable WILY PT, RICHA Unavailable Unavailable PHILOMENA MILL OPERATOR HELPER, ZULY Unavailable Unavailable CICI RN, TIFFANY Unavailable Unavailable Payers Payer Name Policy Type Policy Number Effective Date Expira tion Date MEDICARE.[place] [id number] Problems Condition Name Condition Details Condition Category Status Onset Date Resolution Date Last Treatment Date Treating Clinician Comments STAPHYLOCOCC AL ARTHRITIS, RIGHT KNEE Active 01-21 00:00: 00 UNSP STAPHYLOCOCC US THE CAUSE OF DISEASES CLASSD ELSWHR Active 01-21 00:00: 00 BILATERAL PRIMARY OSTEOARTHRIT IS OF KNEE Active 01-21 00:00: 00 EFFUSION, RIGHT KNEE Active 01-21 00:00: 00 UNSPECIFIED OPEN WOUND OF LEFT FOREARM, SUBSEQUENT ENCOUNTER Active 12-29 00:00: 00 TYPE 2 DIABETES W DIABETIC PERIPHERAL ANGIOPATH W/O GANGRENE Active 01-21 00:00: 00 HYPERTENSIVE HEART DISEASE WITHOUT HEART FAILURE Active 01-21 00:00: 00 ATHSCL HEART DISEASE OF [place] CORONARY ARTERY W/O ANG PCTRS Active 01-21 00:00: 00 UNSPECIFIED ATRIAL FIBRILLATION Active 01-21 00:00: 00 TYPE 2 DIABETES MELLITUS WITH DIABETIC POLYNEUROPAT HY Active 01-21 00:00: 00 CARDIOMYOPAT HY, UNSPECIFIED Active 01-21 00:00: 00 PARKINSON'S DIS W/O DYSKINESIA, W/O MENTION OF FLUCTUATIONS Active 01-21 00:00: 00 MONOCLONAL GAMMOPATHY Active 01-21 00:00: 00 HYPOTHYROIDI SM, UNSPECIFIED Active 01-21 00:00: 00 OBSTRUCTIVE SLEEP APNEA (ADULT) (PEDIATRIC) Active 01-21 00:00: 00 GASTRO-ESOPH AGEAL REFLUX DISEASE WITHOUT ESOPHAGITIS Active 01-21 00:00: 00 HYPERLIPIDEM IA, UNSPECIFIED Active 01-21 00:00: 00 ELECTRIC TAPE SLITTER (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 OF ASPIRIN Active 01-21 00:00: 00 ELECTRIC TAPE SLITTER (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 OF ANTICOAGULAN TS Active 01-21 00:00: 00 PRESENCE OF AORTOCORONAR Y BYPASS GRAFT Active 01-21 00:00: 00 PRESENCE OF AUTOMATIC (IMPLANTABLE ) CARDIAC DEFIBRILLATO R Active 01-21 00:00: 00 Allergies, Adverse Reactions, Alerts Allergy Name Allergy Type Status Severity Reaction(s) Onset Date Inactive Date Treating Clinician Comments NO KNOWN ALLERGIES Propensity to adverse reactions Active 01-22 10:10: 51 Medications Ordered Medication Name Filled Medication Name Start Date Stop Date Current Medication? Ordering Clinician Indication Dosage Frequency Signature (SIG) Comments Components cephalexin 500 mg capsule 01-03 00:00: 00 01-21 00:00 :00 No [id number] Per instruc tions Per instructio ns (route: oral) Med Classific ation: Anti-Infe ctive Agents atorvastati n 40 mg tablet 12-27 00:00: 00 Yes [id number] CHOLESTEROL 1 tablet BEDTIME 1 tablet BEDTIME (route: oral) Med Classific ation: Cardiovas cular Therapy Agents omeprazole 40 mg capsule,del ayed release 12-27 00:00: 00 Yes [id number] GERD 1 capsule DAILY 1 capsule DAILY (route: oral) Med Classific ation: Gastroint estinal Therapy Agents acyclovir 800 mg tablet 12-21 00:00: 00 Yes [id number] ANTI INFECTION 1 tablet 2 TIMES DAILY 1 tablet 2 TIMES DAILY (route: oral) Med Classific ation: Anti-Infe ctive Agents potassium chloride ER 20 mEq tablet,exte nded release(par t/cryst) 12-21 00:00: 00 Yes [id number] SUPPLEMENT 1 tablet DAILY 1 tablet DAILY (route: oral) Med Classific ation: Electroly te Balance-N utritiona l Products pregabalin 50 mg capsule 12-05 00:00: 00 Yes [id number] NERVE PAIN 1 capsule 2 TIMES DAILY 1 capsule 2 TIMES DAILY (route: oral) Med Classific ation: Central Nervous System Agents amitriptyli ne 25 mg tablet 01-21 00:00: 00 Yes [id number] DEPRESSION 1 tablet BEDTIME 1 tablet BEDTIME (route: oral) Med Classific ation: Central Nervous System Agents Aspirin Childrens 81 mg chewable tablet 01-21 00:00: 00 Yes [id number] HEART 1 tablet DAILY 1 tablet DAILY (route: oral) Med Classific ation: Hematolog ical Agents bisoprolol fumarate 5 mg tablet 01-21 00:00: 00 Yes [id number] BLOOD PRESSURE 1 tablet DAILY 1 tablet DAILY (route: oral) Med Classific ation: Cardiovas cular Therapy Agents hydrochloro thiazide 25 mg tablet 01-21 00:00: 00 Yes [id number] BLOOD PRESSURE 1 tablet DAILY 1 tablet DAILY (route: oral) Med Classific ation: Cardiovas cular Therapy Agents Jardiance 10 mg tablet 01-21 00:00: 00 Yes [id number] T2DM 1 tablet DAILY 1 tablet DAILY (route: oral) Med Classific ation: Endocrine levothyroxi ne 75 mcg tablet 01-21 00:00: 00 Yes [id number] THYROID 1 tablet DAILY 1 tablet DAILY (route: oral) Med Classific ation: Endocrine losartan 100 mg tablet 01-21 00:00: 00 Yes [id number] BLOOD PRESSURE 1 tablet DAILY 1 tablet DAILY (route: oral) Med Classific ation: Cardiovas cular Therapy Agents tamsulosin 0.4 mg capsule 01-21 00:00: 00 Yes [id number] PROSTATE 1 capsule DAILY 1 capsule DAILY (route: oral) Med Classific ation: Genitouri nary Therapy Xarelto 20 mg tablet 01-21 00:00: 00 Yes [id number] HEART 1 tablet DAILY 1 tablet DAILY (route: oral) Med Classific ation: Hematolog ical Agents hydrocodone 5 mg-acetamin ophen 325 mg tablet 01-22 00:00: 00 Yes [id number] PAIN 1 tablet EVERY 6 HOURS 1 tablet EVERY 6 HOURS (route: oral) Med Classific ation: Analgesic , Anti-infl ammatory or Antipyret ic tetracyclin e 250 mg tablet 01-21 00:00: 00 Yes [id number] ANTIBIOTIC 250 tablet EVERY 6 HOURS 250 tablet EVERY 6 HOURS (route: oral) Med Classific ation: Anti-Infe ctive Agents Vital Signs Vital Name Observation Time Observation Value Commen ts Temperature 2025-03-21 16:26:00.000 98.2 [degF] Temperature 2025-03-13 08:52:00.000 97.6 [degF] Temperature 2025-03-12 12:39:00.000 98.3 [degF] Temperature 2025-03-08 08:32:00.000 97.6 [degF] Temperature 2025-02-20 09:53:00.000 97.8 [degF] Temperature 2025-02-12 15:34:00.000 97.7 [degF] Temperature 2025-02-06 15:17:00.000 97.5 [degF] Temperature 2025-02-01 10:24:00.000 98 [degF] Temperature 2025-01-24 14:59:00.000 98 [degF] Temperature 2025-01-21 14:53:00.000 98.3 [degF] BMI (%) 2025-01-21 14:53:00.000 27 kg/m2 Height 2025-01-21 14:53:00.000 72 [in_us] Pulse 2025-03-21 16:26:00.000 78 /min Pulse 2025-03-13 08:52:00.000 100 /min Pulse 2025-03-12 12:39:00.000 74 /min Pulse 2025-03-08 08:32:00.000 86 /min Pulse 2025-02-20 09:53:00.000 68 /min Pulse 2025-02-12 15:34:00.000 94 /min Pulse 2025-02-06 15:17:00.000 68 /min Pulse 2025-02-01 10:24:00.000 88 /min Pulse 2025-01-24 14:59:00.000 70 /min Pulse 2025-01-21 14:53:00.000 98 /min O2 Saturation (%) 2025-03-13 08:52:00.000 99 % O2 Saturation (%) 2025-03-12 12:39:00.000 96 % O2 Saturation (%) 2025-03-08 08:32:00.000 99 % O2 Saturation (%) 2025-02-20 09:59:00.000 98 % O2 Saturation (%) 2025-02-12 15:34:00.000 99 % O2 Saturation (%) 2025-02-06 15:20:00.000 98 % O2 Saturation (%) 2025-02-01 10:28:00.000 98 % O2 Saturation (%) 2025-01-24 15:00:00.000 98 % O2 Saturation (%) 2025-01-21 14:53:00.000 97 % Respirations 2025-03-21 16:26:00.000 16 /min Respirations 2025-03-13 08:52:00.000 18 /min Respirations 2025-03-12 12:39:00.000 18 /min Respirations 2025-03-08 08:32:00.000 18 /min Respirations 2025-02-20 09:53:00.000 16 /min Respirations 2025-02-12 15:34:00.000 18 /min Respirations 2025-02-06 15:17:00.000 16 /min Respirations 2025-02-01 10:24:00.000 16 /min Respirations 2025-01-24 14:59:00.000 18 /min Respirations 2025-01-21 14:53:00.000 18 /min Weight (lbs) 2025-01-21 14:53:00.000 203 [lb_av] Systolic Blood Pressure 2025-03-21 16:26:00.000 134 mm [Hg] Systolic Blood Pressure 2025-03-13 08:52:00.000 102 mm [Hg] Systolic Blood Pressure 2025-03-12 12:39:00.000 128 mm [Hg] Systolic Blood Pressure 2025-03-08 08:32:00.000 90 mm[ Hg] Systolic Blood Pressure 2025-02-20 09:53:00.000 130 mm [Hg] Systolic Blood Pressure 2025-02-12 15:34:00.000 124 mm [Hg] Systolic Blood Pressure 2025-02-06 15:17:00.000 110 mm [Hg] Systolic Blood Pressure 2025-02-01 10:24:00.000 108 mm [Hg] Systolic Blood Pressure 2025-01-24 14:59:00.000 112 mm [Hg] Systolic Blood Pressure 2025-01-21 14:53:00.000 108 mm [Hg] Diastolic Blood Pressure 2025-03-21 16:26:00.000 72 mm [Hg] Diastolic Blood Pressure 2025-03-13 08:52:00.000 62 mm [Hg] Diastolic Blood Pressure 2025-03-12 12:39:00.000 74 mm [Hg] Diastolic Blood Pressure 2025-03-08 08:32:00.000 58 mm [Hg] Diastolic Blood Pressure 2025-02-20 09:53:00.000 60 mm [Hg] Diastolic Blood Pressure 2025-02-12 15:34:00.000 78 mm [Hg] Diastolic Blood Pressure 2025-02-06 15:17:00.000 70 mm [Hg] Diastolic Blood Pressure 2025-02-01 10:24:00.000 68 mm [Hg] Diastolic Blood Pressure 2025-01-24 14:59:00.000 78 mm [Hg] Diastolic Blood Pressure 2025-01-21 14:53:00.000 68 mm [Hg] Plan of Treatment Planned Activity Planned Date Details Comments Future Scheduled Test AGENCY MAY PERFORM A RESUMPTION OF CARE VISIT FOLLOWING ANY HOSPITAL ADMISSION. PT TO EVALUATE, OBSERVE / ASSESS, AND MONITOR, MILL OPERATOR HELPER TO OBSERVE AND MONITOR, PROVIDE SKILLED THERAPEUTIC INTERVENTION, ACTIVITY, EDUCATION, AND TRAINING TO ADDRESS; [code = AGENCY MAY PERFORM A RESUMPTION OF CARE VISIT FOLLOWING ANY HOSPITAL ADMISSION. PT TO EVALUATE, OBSERVE / ASSESS, AND MONITOR, MILL OPERATOR HELPER TO OBSERVE AND MONITOR, PROVIDE SKILLED THERAPEUTIC INTERVENTION, ACTIVITY, EDUCATION, AND TRAINING TO ADDRESS;] Future Scheduled Test SIT TO/FRO M STAND TRANSFERS (PT/MILL OPERATOR HELPER) [code = SIT TO/FROM STAND TRANSFERS (PT/MILL OPERATOR HELPER)] Future Scheduled Test PT/MILL OPERATOR HELPER TO PROVIDE GAIT TRAINING FOR IMPROVED MOBILITY AND /OR TO NORMALIZE GAIT PATTERN [code = PT/MILL OPERATOR HELPER TO PROVIDE GAIT TRAINING FOR IMPROVED MOBILITY AND /OR TO NORMALIZE GAIT PATTERN] Future Scheduled Test NEUROMUSCU LAR RE-EDUCATION / BALANCE / POSTURAL CONTROL (PT) [code = NEUROMUSCULAR RE-EDUCATION / BALANCE / POSTURAL CONTROL (PT)] Future Scheduled Test THERAPEUTI C EXERCISES AND ESTABLISHING A HOME EXERCISE PROGRAM (PT/MILL OPERATOR HELPER) [code = THERAPEUTIC EXERCISES AND ESTABLISHING A HOME EXERCISE PROGRAM (PT/MILL OPERATOR HELPER)] Future Scheduled Test PT/MILL OPERATOR HELPER TO IDENTIFY FALL RISK FACTORS; EDUCATE THE PATIENT/CAREGIVER ON WAYS TO REDUCE FALL RISK FACTORS AND ESTABLISH HOME EXERCISE PROGRAM TO MINIMIZE FALL RISK. MAY TEACH THE PATIENT FLOOR RECOVERY WHEN CLINICALLY APPROPRIATE [code = PT/MILL OPERATOR HELPER TO IDENTIFY FALL RISK FACTORS; EDUCATE THE PATIENT/CAREGIVER ON WAYS TO REDUCE FALL RISK FACTORS AND ESTABLISH HOME EXERCISE PROGRAM TO MINIMIZE FALL RISK. MAY TEACH THE PATIENT FLOOR RECOVERY WHEN CLINICALLY APPROPRIATE] Future Scheduled Test PT / MILL OPERATOR HELPER T O MONITOR AND EDUCATE ON OXYGEN SATURATION DURING ADLS/IADLS, NOTIFY PHYSICIAN AND/OR THE RN CLINICAL PETROLEUM SAMPLER FOR PHYSICIAN NOTIFICATION AND IF O2 SATS BELOW PHYSICIAN ORDERED PARAMETERS AFTER 10 MIN OF REST [code = PT / MILL OPERATOR HELPER TO MONITOR AND EDUCATE ON OXYGEN SATURATION DURING ADLS/IADLS, NOTIFY PHYSICIAN AND/OR THE RN CLINICAL PETROLEUM SAMPLER FOR PHYSICIAN NOTIFICATION AND IF O2 SATS BELOW PHYSICIAN ORDERED PARAMETERS AFTER 10 MIN OF REST] Future Scheduled Test PT / MILL OPERATOR HELPER T O INSTRUCT PATIENT/CAREGIVER ON RISK FOR HOSPITALIZATION/EMERGENCY ROOM VISITS, TEACH SIGNS AND SYMPTOMS THAT PUT PATIENT AT RISK, WHEN TO NOTIFY NURSE/PHYSICIAN OF COMPLICATIONS/DECLINE, AND WHEN TO CALL 911. [code = PT / MILL OPERATOR HELPER TO INSTRUCT PATIENT/CAREGIVER ON RISK FOR HOSPITALIZATION/EMERGENCY ROOM VISITS, TEACH SIGNS AND SYMPTOMS THAT PUT PATIENT AT RISK, WHEN TO NOTIFY NURSE/PHYSICIAN OF COMPLICATIONS/DECLINE, AND WHEN TO CALL 911.] Future Scheduled Test PT / MILL OPERATOR HELPER T O MONITOR FOR HYPO/HYPERGLYCEMIA AND CONDUCT ROUTINE FOOT INSPECTIONS. RECORD PATIENT REPORTED BLOOD SUGAR LEVELS AND NOTIFY PHYSICIAN AND/OR THE RN CLINICAL PETROLEUM SAMPLER FOR PHYSICIAN NOTIFICATION IF BLOOD SUGAR LEVELS ARE OUTSIDE ORDERED PARAMETERS. TEACH PATIENT/CAREGIVER ON DAILY FOOT INSPECTIONS [code = PT / MILL OPERATOR HELPER TO MONITOR FOR HYPO/HYPERGLYCEMIA AND CONDUCT ROUTINE FOOT INSPECTIONS. RECORD PATIENT REPORTED BLOOD SUGAR LEVELS AND NOTIFY PHYSICIAN AND/OR THE RN CLINICAL PETROLEUM SAMPLER FOR PHYSICIAN NOTIFICATION IF BLOOD SUGAR LEVELS ARE OUTSIDE ORDERED PARAMETERS. TEACH PATIENT/CAREGIVER ON DAILY FOOT INSPECTIONS] Future Scheduled Test SKILLED NU RSING TO EVALUATE FOR PATHOLOGY MANAGEMENT [code = INTERMEDIATE TO EVALUATE FOR PATHOLOGY MANAGEMENT] Future Scheduled Test RN TO OBSE RVE, ASSESS, EVALUATE, AND DEVELOP AN INDIVIDUALIZED PLAN OF CARE. AGENCY MAY ACCEPT ORDERS FROM CONSULTING PHYSICIANS DR KRISTEN DIEHL TO OBSERVE AND ASSESS, TEST BORING CREW CHIEF/DIGITAL MARKETER TO OBSERVE FOR RISK FOR FALLS AND INSTRUCT IN FALL PREVENTION, HOME SAFETY, MEDICATION MANAGEMENT, INFECTION PREVENTION, AND NUTRITION MANAGEMENT. RN/TEST BORING CREW CHIEF/DIGITAL MARKETER NURSE MAY PERFORM O2 SATURATION LEVEL ON ADMISSION AND PRN FOR SOB FOR RN TO ASSESS/TEST BORING CREW CHIEF TO OBSERVE PATIENT, WITH NOTIFICATION TO THE PHYSICIAN IF SATURATION IS 90% IN THE ABSENCE OF MORE SPECIFIC PARAMETERS FROM THE PHYSICIAN. AGENCY MAY PERFORM A RESUMPTION OF CARE VISIT FOLLOWING ANY HOSPITAL ADMISSION. RN/TEST BORING CREW CHIEF/DIGITAL MARKETER TO MONITOR CO-MORBID CONDITIONS LISTED ON THE PLAN OF CARE AND ANY NEW CONDITIONS THAT PRESENT THEMSELVES DURING THIS EPISODE TO IDENTIFY CHANGES AND INTERVENE TO MINIMIZE COMPLICATIONS. MEDICATION MANAGEMENT; RN/TEST BORING CREW CHIEF/DIGITAL MARKETER TO REVIEW MEDICATIONS FOR INTERACTIONS, EFFECTIVENESS OF DRUG THERAPY, AND SIGNS/SYMPTOMS OF ADVERSE REACTIONS. MAY INSTRUCT AND REINFORCE MEDICATION TEACHING RELATED TO THE USE OF MEDICATIONS, DOSAGE, FREQUENCY, PURPOSE, SIDE EFFECTS, AND TO REPORT COMPLICATIONS. FALL REDUCTION MANAGEMENT; RN TO ASSESS AND OBSERVE, TEST BORING CREW CHIEF/DIGITAL MARKETER TO OBSERVE FALL RISK FACTORS AND EDUCATE PATIENT/CAREGIVER ON STRATEGIES TO MINIMIZE THE RISK OF FALLING. RN/TEST BORING CREW CHIEF/DIGITAL MARKETER TO PERFORM/TEACH PATIENT/CAREGIVER WOUND CARE TO LEFT LOWER ARM IRRIGATE/CLEANSE WITH WARM SOAP AND WATER OR SALINE APPLY SELF ADHERENT FOAM PAD COVER WITH SELF ADHERENT FOAM PADS CHANGE DRESSING EVERY 3-4 DAYS AND PRN FOR SOILED DRESSING [code = RN TO OBSERVE, ASSESS, EVALUATE, AND DEVELOP AN INDIVIDUALIZED PLAN OF CARE. AGENCY MAY ACCEPT ORDERS FROM CONSULTING PHYSICIANS DR KRISTEN DIEHL TO OBSERVE AND ASSESS, TEST BORING CREW CHIEF/DIGITAL MARKETER TO OBSERVE FOR RISK FOR FALLS AND INSTRUCT IN FALL PREVENTION, HOME SAFETY, MEDICATION MANAGEMENT, INFECTION PREVENTION, AND NUTRITION MANAGEMENT. RN/TEST BORING CREW CHIEF/DIGITAL MARKETER NURSE MAY PERFORM O2 SATURATION LEVEL ON ADMISSION AND PRN FOR SOB FOR RN TO ASSESS/TEST BORING CREW CHIEF TO OBSERVE PATIENT, WITH NOTIFICATION TO THE PHYSICIAN IF SATURATION IS 90% IN THE ABSENCE OF MORE SPECIFIC PARAMETERS FROM THE PHYSICIAN. AGENCY MAY PERFORM A RESUMPTION OF CARE VISIT FOLLOWING ANY HOSPITAL ADMISSION. RN/TEST BORING CREW CHIEF/DIGITAL MARKETER TO MONITOR CO-MORBID CONDITIONS LISTED ON THE PLAN OF CARE AND ANY NEW CONDITIONS THAT PRESENT THEMSELVES DURING THIS EPISODE TO IDENTIFY CHANGES AND INTERVENE TO MINIMIZE COMPLICATIONS. MEDICATION MANAGEMENT; RN/TEST BORING CREW CHIEF/DIGITAL MARKETER TO REVIEW MEDICATIONS FOR INTERACTIONS, EFFECTIVENESS OF DRUG THERAPY, AND SIGNS/SYMPTOMS OF ADVERSE REACTIONS. MAY INSTRUCT AND REINFORCE MEDICATION TEACHING RELATED TO THE USE OF MEDICATIONS, DOSAGE, FREQUENCY, PURPOSE, SIDE EFFECTS, AND TO REPORT COMPLICATIONS. FALL REDUCTION MANAGEMENT; RN TO ASSESS AND OBSERVE, TEST BORING CREW CHIEF/DIGITAL MARKETER TO OBSERVE FALL RISK FACTORS AND EDUCATE PATIENT/CAREGIVER ON STRATEGIES TO MINIMIZE THE RISK OF FALLING. RN/TEST BORING CREW CHIEF/DIGITAL MARKETER TO PERFORM/TEACH PATIENT/CAREGIVER WOUND CARE TO LEFT LOWER ARM IRRIGATE/CLEANSE WITH WARM SOAP AND WATER OR SALINE APPLY SELF ADHERENT FOAM PAD COVER WITH SELF ADHERENT FOAM PADS CHANGE DRESSING EVERY 3-4 DAYS AND PRN FOR SOILED DRESSING] Goal 2025-03-21 Patient Goal - I NDEPENDENCE WITH FUNCTIONAL ACTIVITIES Goal Provider Goal - Goal Provider Goal - PT LTG: PATIENT WILL DEMONSTRATE IMPROVED ABILITY TO PERFORM SIT TO/FROM STAND TRANSFERS TO REDUCE THE RISK OF SKIN BREAKDOWN AND REDUCE FALL RISK FROM CGA TO IND WITHIN 8 WEEKS Goal Provider Goal - PT STG: PATIENT WILL DEMONSTRATE IMPROVED 6 MINUTE WALK TEST AMBULATION FROM 60 FT MIN TO SBA FOR 150 FT WITH APPROPRIATE ADWITHIN 4 WEEKS PT LTG: PATIENT WILL DEMONSTRATE IMPROVED 6 MINUTE WALK TEST AMBULATION FROM 60 FT MIN TO IND FOR 300 FT WITH APPROPRIATE ADWITHIN 8 WEEKS Goal Provider Goal - PT LTG: PATIENT WILL DEMONSTRATE REDUCED FALL RISK EVIDENCED BY TUG TEST (CUT SCORE >11 SECONDS INDICATES INCREASED FALL RISK) IMPROVING FROM UNABLE TO LESS THAN OR EQUAL TO 11 SECONDS WITHIN 8 WEEKS Goal Provider Goal - PT STG: PATIENT WILL DEMONSTRATE IMPROVEMENT ON CHAIR RISE TEST FROM 1 TO 3 INDICATING DECREASED FALL RISK WITHIN 4 WEEKS PT LTG: PATIENT WILL DEMONSTRATE IMPROVEMENT ON CHAIR RISE TEST FROM 1 TO 5 INDICATING DECREASED FALL RISK WITHIN 8 WEEKS PT LTG: PATIENT WILL DEMONSTRATE IMPROVED FUNCTIONAL STRENGTH EVIDENCED BY FIVE TIMES SIT TO STAND TEST (CUT SCORE >12 SECONDS INDICATES AN INCREASED FALL RISK) IMPROVING FROM UNABLE TO LESS THAN OR EQUAL TO 12 SECONDS WITHIN 8 WEEKS IN ORDER TO DECREASE FALL RISK PT LTG: PATIENT WILL DEMONSTRATE INDEPENDENCE AND COMPLIANCE WITH HEP WITHIN 4 WEEKS Goal Provider Goal - PT LTG: PATIENT/CAREGIVER WILL DEMONSTRATE ADHERENCE TO FALL REDUCTION SELF-MANAGEMENT AND REDUCING FALL RISK FACTORS TO MINIMIZE FALL RISK BY END OF EPISODE. Goal Provider Goal - PT LTG: PATIENT WILL MAINTAIN OXYGEN SATURATION WITHIN PHYSICIAN ORDERED PARAMETERS THROUGHOUT EPISODE OF CARE. Goal Provider Goal - PT GOAL: PATIENT/CAREGIVER WILL VERBALIZE UNDERSTANDING OF SIGNS AND SYMPTOMS THAT PUT THE PATIENT AT RISK FOR HOSPITALIZATION /EMERGENCY ROOM VISITS, WHEN TO NOTIFY NURSE/PHYSICIAN OF COMPLICATIONS/DECLINE AND WHEN TO CALL 911. Goal Provider Goal - PATIENTS BLOOD SUGAR WILL REMAIN WELL CONTROLLED WITH SELF-MANAGEMENT THROUGHOUT EPISODE OF CARE. Goal Provider Goal - Goal Provider Goal - A PLAN OF CARE WILL BE ESTABLISHED THAT MEETS THE PATIENTS NEEDS. PATIENT WILL DEMONSTRATE OXYGEN SATURATION WITHIN NORMAL LIMITS OR PATIENTS OPTIMAL LEVEL ESTABLISHED BY THE PHYSICIAN THROUGHOUT CARE. CHANGES TO CO-MORBID CONDITIONS AND ANY NEW CONDITIONS WILL BE IDENTIFIED AND REPORTED TO THE PHYSICIAN. PATIENT/CAREGIVER TO VERBALIZE, AND CONSISTENTLY DEMONSTRATE EFFECTIVE, SAFE MANAGEMENT OF MEDICATION INCLUDING KNOWLEDGE OF EFFECTIVENESS, POTENTIAL SIDE EFFECTS AND DRUG REACTIONS AND WHEN TO CONTACT THE APPROPRIATE CARE PROVIDER. PATIENT/CAREGIVER WILL BE ABLE TO VERBALIZE UNDERSTANDING OF MEDICATION REGIMEN AND ACCURATELY TAKE MEDICATIONS PRESCRIBED WITHOUT ADVERSE EFFECTS BY END OF CERT PERIOD PATIENT/CAREGIVER WILL VERBALIZE/DEMONSTRATE UNDERSTANDING OF FALL RISK FACTORS AND IMPLEMENT STRATEGIES TO MINIMIZE FALL RISK. PATIENT/CAREGIVER WILL VERBALIZE/DEMONSTRATE AN ABILITY TO ADHERE TO FALL REDUCTION SELF-MANAGEMENT AND LIFE-STYLE CHANGES BY END OF CERT PERIOD PATIENT / CAREGIVER WILL VERBALIZE/DEMONSTRATE ABILITY TO PERFORM WOUND CARE. WOUND STATUS WILL IMPROVE EVIDENCED BY A DECREASE IN SIZE, DRAINAGE, ABSENCE OF INFECTION, AND DECREASED PAIN BY END OF CERT PERIOD. Reason for Visit INDEPENDENT WITH USE OF ASSISTIVE DEVICE Encounters Start Date/Time End Date/Time Encounter Type Admission Type Attending [facility] Care Facility Care Department Encounter ID Discharge Date Discharge Status Discharge Condition Discharge Reason Percent Goals Met 2025-01-21 00:00:00 2025-03-21 00:00:00 Outpatient NEW ADMISSION [facility] [id number] 2025-03-21 00:00:00 DISCHARGE TO HOME OR SELF CARE INDEPENDEN T WITH USE OF ASSISTIVE DEVICE HH OR [facility]- GOALS MET 90.91
--- OUTSIDE RECORDS SUMMARY | 2025-03-20 20:00 | XMS_ITS | Clinical Summary ---
Author Organization Unknown Care Team Providers Care Consulting Networking Engineer Name Role Phone KRISTEN MANJARREZ, RAÚL Unavailable Unavailable WILY PT, RICHA Unavailable Unavailable PHILOMENA SWITCHBOARD MECHANIC, ZULY Unavailable Unavailable CICI RN, TIFFANY Unavailable Unavailable Payers Payer Name Policy Type Policy Number Effective Date Expira tion Date MEDICARE.[place] [id number] Problems Condition Name Condition Details Condition Category [...] 01-21 00:00: 00 ATHSCL HEART DISEASE OF [place] CORONARY ARTERY W/O ANG PCTRS Active 01-21 [...] HYPERLIPIDEM IA, UNSPECIFIED Active 01-21 00:00: 00 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 Active 01-21 00:00: 00 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 SPECIALIST (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 OF ANTICOAGULAN TS Active 01-21 [...] 01-03 00:00: 00 01-21 00:00 :00 No [id number] Per instruc tions Per instructio ns (route: oral) Med Classific ation: Anti-Infe ctive Agents atorvastati n 40 mg tablet 12-27 00:00: 00 Yes [id number] CHOLESTEROL 1 tablet BEDTIME 1 tablet BEDTIME (route: oral) Med Classific ation: Cardiovas cular Therapy Agents omeprazole 40 mg capsule,del ayed release 12-27 00:00: 00 Yes [id number] GERD 1 capsule DAILY 1 capsule DAILY (route: oral) Med Classific ation: Gastroint estinal Therapy Agents acyclovir 800 mg tablet 12-21 00:00: 00 Yes [id number] ANTI INFECTION 1 tablet 2 TIMES DAILY 1 tablet 2 TIMES DAILY (route: oral) Med Classific ation: Anti-Infe ctive Agents potassium chloride ER 20 mEq tablet,exte nded release(par t/cryst) 12-21 00:00: 00 Yes [id number] SUPPLEMENT 1 tablet DAILY 1 tablet DAILY (route: oral) Med Classific ation: Electroly te Balance-N utritiona l Products pregabalin 50 mg capsule 12-05 00:00: 00 Yes [id number] NERVE PAIN 1 capsule 2 TIMES DAILY 1 capsule 2 TIMES DAILY (route: oral) Med Classific ation: Central Nervous System Agents amitriptyli ne 25 mg tablet 01-21 00:00: 00 Yes [id number] DEPRESSION 1 tablet BEDTIME 1 tablet BEDTIME (route: oral) Med Classific ation: Central Nervous System Agents Aspirin Childrens 81 mg chewable tablet 01-21 00:00: 00 Yes [id number] HEART 1 tablet DAILY 1 tablet DAILY (route: oral) Med Classific ation: Hematolog ical Agents bisoprolol fumarate 5 mg tablet 01-21 00:00: 00 Yes [id number] BLOOD PRESSURE 1 tablet DAILY 1 tablet DAILY (route: oral) Med Classific ation: Cardiovas cular Therapy Agents hydrochloro thiazide 25 mg tablet 01-21 00:00: 00 Yes [id number] BLOOD PRESSURE 1 tablet DAILY 1 tablet DAILY (route: oral) Med Classific ation: Cardiovas cular Therapy Agents Jardiance 10 mg tablet 01-21 00:00: 00 Yes [id number] T2DM 1 tablet DAILY 1 tablet DAILY (route: oral) Med Classific ation: Endocrine levothyroxi ne 75 mcg tablet 01-21 00:00: 00 Yes [id number] THYROID 1 tablet DAILY 1 tablet DAILY (route: oral) Med Classific ation: Endocrine losartan 100 mg tablet 01-21 00:00: 00 Yes [id number] BLOOD PRESSURE 1 tablet DAILY 1 tablet DAILY (route: oral) Med Classific ation: Cardiovas cular Therapy Agents tamsulosin 0.4 mg capsule 01-21 00:00: 00 Yes [id number] PROSTATE 1 capsule DAILY 1 capsule DAILY (route: oral) Med Classific ation: Genitouri nary Therapy Xarelto 20 mg tablet 01-21 00:00: 00 Yes [id number] HEART 1 tablet DAILY 1 tablet DAILY (route: oral) Med Classific ation: Hematolog ical Agents hydrocodone 5 mg-acetamin ophen 325 mg tablet 01-22 00:00: 00 Yes [id number] PAIN 1 tablet EVERY 6 HOURS 1 tablet EVERY 6 HOURS (route: oral) Med Classific ation: Analgesic , Anti-infl ammatory or Antipyret ic tetracyclin e 250 mg tablet 01-21 00:00: 00 Yes [id number] ANTIBIOTIC 250 tablet EVERY 6 HOURS 250 [...] TO EVALUATE, OBSERVE / ASSESS, AND MONITOR, SWITCHBOARD MECHANIC TO OBSERVE AND MONITOR, PROVIDE SKILLED THERAPEUTIC INTERVENTION, ACTIVITY, EDUCATION, AND TRAINING TO ADDRESS; [code = AGENCY MAY PERFORM A RESUMPTION OF CARE VISIT FOLLOWING ANY HOSPITAL ADMISSION. PT TO EVALUATE, OBSERVE / ASSESS, AND MONITOR, SWITCHBOARD MECHANIC TO OBSERVE AND MONITOR, PROVIDE SKILLED THERAPEUTIC INTERVENTION, ACTIVITY, EDUCATION, AND TRAINING TO ADDRESS;] Future Scheduled Test SIT TO/FRO M STAND TRANSFERS (PT/SWITCHBOARD MECHANIC) [code = SIT TO/FROM STAND TRANSFERS (PT/SWITCHBOARD MECHANIC)] Future Scheduled Test PT/SWITCHBOARD MECHANIC TO PROVIDE GAIT TRAINING FOR IMPROVED MOBILITY AND /OR TO NORMALIZE GAIT PATTERN [code = PT/SWITCHBOARD MECHANIC TO PROVIDE GAIT TRAINING FOR IMPROVED MOBILITY AND /OR TO NORMALIZE GAIT PATTERN] Future Scheduled Test NEUROMUSCU LAR RE-EDUCATION / BALANCE / POSTURAL CONTROL (PT) [code = NEUROMUSCULAR RE-EDUCATION / BALANCE / POSTURAL CONTROL (PT)] Future Scheduled Test THERAPEUTI C EXERCISES AND ESTABLISHING A HOME EXERCISE PROGRAM (PT/SWITCHBOARD MECHANIC) [code = THERAPEUTIC EXERCISES AND ESTABLISHING A HOME EXERCISE PROGRAM (PT/SWITCHBOARD MECHANIC)] Future Scheduled Test PT/SWITCHBOARD MECHANIC TO IDENTIFY FALL RISK FACTORS; EDUCATE THE PATIENT/CAREGIVER ON WAYS TO REDUCE FALL RISK FACTORS AND ESTABLISH HOME EXERCISE PROGRAM TO MINIMIZE FALL RISK. MAY TEACH THE PATIENT FLOOR RECOVERY WHEN CLINICALLY APPROPRIATE [code = PT/SWITCHBOARD MECHANIC TO IDENTIFY FALL RISK FACTORS; EDUCATE THE PATIENT/CAREGIVER ON WAYS TO REDUCE FALL RISK FACTORS AND ESTABLISH HOME EXERCISE PROGRAM TO MINIMIZE FALL RISK. MAY TEACH THE PATIENT FLOOR RECOVERY WHEN CLINICALLY APPROPRIATE] Future Scheduled Test PT / SWITCHBOARD MECHANIC T O MONITOR AND EDUCATE ON OXYGEN SATURATION DURING ADLS/IADLS, NOTIFY PHYSICIAN AND/OR THE RN CLINICAL ADMISSION DISCHARGE RN FOR PHYSICIAN NOTIFICATION AND IF O2 SATS BELOW PHYSICIAN ORDERED PARAMETERS AFTER 10 MIN OF REST [code = PT / SWITCHBOARD MECHANIC TO MONITOR AND EDUCATE ON OXYGEN SATURATION DURING ADLS/IADLS, NOTIFY PHYSICIAN AND/OR THE RN CLINICAL ADMISSION DISCHARGE RN FOR PHYSICIAN NOTIFICATION AND IF O2 SATS BELOW PHYSICIAN ORDERED PARAMETERS AFTER 10 MIN OF REST] Future Scheduled Test PT / SWITCHBOARD MECHANIC T O INSTRUCT PATIENT/CAREGIVER ON RISK FOR HOSPITALIZATION/EMERGENCY ROOM VISITS, TEACH SIGNS AND SYMPTOMS THAT PUT PATIENT AT RISK, WHEN TO NOTIFY NURSE/PHYSICIAN OF COMPLICATIONS/DECLINE, AND WHEN TO CALL 911. [code = PT / SWITCHBOARD MECHANIC TO INSTRUCT PATIENT/CAREGIVER ON RISK FOR HOSPITALIZATION/EMERGENCY ROOM VISITS, TEACH SIGNS AND SYMPTOMS THAT PUT PATIENT AT RISK, WHEN TO NOTIFY NURSE/PHYSICIAN OF COMPLICATIONS/DECLINE, AND WHEN TO CALL 911.] Future Scheduled Test PT / SWITCHBOARD MECHANIC T O MONITOR FOR HYPO/HYPERGLYCEMIA AND CONDUCT ROUTINE FOOT INSPECTIONS. RECORD PATIENT REPORTED BLOOD SUGAR LEVELS AND NOTIFY PHYSICIAN AND/OR THE RN CLINICAL ADMISSION DISCHARGE RN FOR PHYSICIAN NOTIFICATION IF BLOOD SUGAR LEVELS ARE OUTSIDE ORDERED PARAMETERS. TEACH PATIENT/CAREGIVER ON DAILY FOOT INSPECTIONS [code = PT / SWITCHBOARD MECHANIC TO MONITOR FOR HYPO/HYPERGLYCEMIA AND CONDUCT ROUTINE FOOT INSPECTIONS. RECORD PATIENT REPORTED BLOOD SUGAR LEVELS AND NOTIFY PHYSICIAN AND/OR THE RN CLINICAL ADMISSION DISCHARGE RN FOR PHYSICIAN NOTIFICATION IF BLOOD SUGAR LEVELS ARE OUTSIDE ORDERED PARAMETERS. TEACH PATIENT/CAREGIVER ON DAILY FOOT INSPECTIONS] Future Scheduled Test SKILLED NU RSING TO EVALUATE FOR PATHOLOGY MANAGEMENT [code = LONG-TERM TO EVALUATE FOR PATHOLOGY MANAGEMENT] Future Scheduled Test RN TO OBSE RVE, ASSESS, EVALUATE, AND DEVELOP AN INDIVIDUALIZED PLAN OF CARE. AGENCY MAY ACCEPT ORDERS FROM CONSULTING PHYSICIANS DR KRISTEN DIEHL TO OBSERVE AND ASSESS, MINERAL RESOURCES INSPECTOR/DISPATCH OFFICER TO OBSERVE FOR RISK FOR FALLS AND INSTRUCT IN FALL PREVENTION, HOME SAFETY, MEDICATION MANAGEMENT, INFECTION PREVENTION, AND NUTRITION MANAGEMENT. RN/MINERAL RESOURCES INSPECTOR/DISPATCH OFFICER NURSE MAY PERFORM O2 SATURATION LEVEL ON ADMISSION AND PRN FOR SOB FOR RN TO ASSESS/MINERAL RESOURCES INSPECTOR TO OBSERVE PATIENT, WITH NOTIFICATION TO THE PHYSICIAN IF SATURATION IS 90% IN THE ABSENCE OF MORE SPECIFIC PARAMETERS FROM THE PHYSICIAN. AGENCY MAY PERFORM A RESUMPTION OF CARE VISIT FOLLOWING ANY HOSPITAL ADMISSION. RN/MINERAL RESOURCES INSPECTOR/DISPATCH OFFICER TO MONITOR CO-MORBID CONDITIONS LISTED ON THE PLAN OF CARE AND ANY NEW CONDITIONS THAT PRESENT THEMSELVES DURING THIS EPISODE TO IDENTIFY CHANGES AND INTERVENE TO MINIMIZE COMPLICATIONS. MEDICATION MANAGEMENT; RN/MINERAL RESOURCES INSPECTOR/DISPATCH OFFICER TO REVIEW MEDICATIONS FOR INTERACTIONS, EFFECTIVENESS OF DRUG THERAPY, AND SIGNS/SYMPTOMS OF ADVERSE REACTIONS. MAY INSTRUCT AND REINFORCE MEDICATION TEACHING RELATED TO THE USE OF MEDICATIONS, DOSAGE, FREQUENCY, PURPOSE, SIDE EFFECTS, AND TO REPORT COMPLICATIONS. FALL REDUCTION MANAGEMENT; RN TO ASSESS AND OBSERVE, MINERAL RESOURCES INSPECTOR/DISPATCH OFFICER TO OBSERVE FALL RISK FACTORS AND EDUCATE PATIENT/CAREGIVER ON STRATEGIES TO MINIMIZE THE RISK OF FALLING. RN/MINERAL RESOURCES INSPECTOR/DISPATCH OFFICER TO PERFORM/TEACH PATIENT/CAREGIVER WOUND CARE TO LEFT [...] DR KRISTEN DIEHL TO OBSERVE AND ASSESS, MINERAL RESOURCES INSPECTOR/DISPATCH OFFICER TO OBSERVE FOR RISK FOR FALLS AND INSTRUCT IN FALL PREVENTION, HOME SAFETY, MEDICATION MANAGEMENT, INFECTION PREVENTION, AND NUTRITION MANAGEMENT. RN/MINERAL RESOURCES INSPECTOR/DISPATCH OFFICER NURSE MAY PERFORM O2 SATURATION LEVEL ON ADMISSION AND PRN FOR SOB FOR RN TO ASSESS/MINERAL RESOURCES INSPECTOR TO OBSERVE PATIENT, WITH NOTIFICATION TO THE PHYSICIAN IF SATURATION IS 90% IN THE ABSENCE OF MORE SPECIFIC PARAMETERS FROM THE PHYSICIAN. AGENCY MAY PERFORM A RESUMPTION OF CARE VISIT FOLLOWING ANY HOSPITAL ADMISSION. RN/MINERAL RESOURCES INSPECTOR/DISPATCH OFFICER TO MONITOR CO-MORBID CONDITIONS LISTED ON THE PLAN OF CARE AND ANY NEW CONDITIONS THAT PRESENT THEMSELVES DURING THIS EPISODE TO IDENTIFY CHANGES AND INTERVENE TO MINIMIZE COMPLICATIONS. MEDICATION MANAGEMENT; RN/MINERAL RESOURCES INSPECTOR/DISPATCH OFFICER TO REVIEW MEDICATIONS FOR INTERACTIONS, EFFECTIVENESS OF DRUG THERAPY, AND SIGNS/SYMPTOMS OF ADVERSE REACTIONS. MAY INSTRUCT AND REINFORCE MEDICATION TEACHING RELATED TO THE USE OF MEDICATIONS, DOSAGE, FREQUENCY, PURPOSE, SIDE EFFECTS, AND TO REPORT COMPLICATIONS. FALL REDUCTION MANAGEMENT; RN TO ASSESS AND OBSERVE, MINERAL RESOURCES INSPECTOR/DISPATCH OFFICER TO OBSERVE FALL RISK FACTORS AND EDUCATE PATIENT/CAREGIVER ON STRATEGIES TO MINIMIZE THE RISK OF FALLING. RN/MINERAL RESOURCES INSPECTOR/DISPATCH OFFICER TO PERFORM/TEACH PATIENT/CAREGIVER WOUND CARE TO LEFT [...] End Date/Time Encounter Type Admission Type Attending [facility] Care Department Encounter ID Discharge Date Discharge Status Discharge Condition Discharge Reason Percent Goals Met 2025-01-21 00:00:00 2025-03-21 00:00:00 Outpatient NEW ADMISSION TIFFANY BOLANOS [facility] [id number] 2025-03-21 00:00:00 DISCHARGE TO HOME OR SELF CARE INDEPENDEN T WITH USE OF ASSISTIVE DEVICE HH OR PAL- GOALS MET 90.91
--- OUTSIDE RECORDS SUMMARY | 2025-03-26 07:30 | XMS_ITS ---
Author Organization [facility] Address [address] [phone] Care Team Providers Care Production Machine Computer Operator Name Role Phone Nas Shea Primary Care Provider [phone] Jessie Velez Unavailable [phone] Allergies No Known Allergies REASON FOR VISIT [...] Encounters Encounter Location Date Provider Diagnosis [facility] [address] [place] [address] [address] [place], [place] [phone] 03/26/2025 Jessie Velez Hypotension I95.9 ; Edema [...] Dr. Shea 04/18/2025, Reason: Provider Name:Nas Solis, 05/07/2025 04:30:00 PM, 1210 [facility] 36 [facility], [address], [place], [place], [id number], Progress Notes * ANGIE SWANOB: 0 (74 yo M)Acc No.[id number]:03/26/2025 Progress Notes Patient: Henry SHIRAJAGRUTI MORALESENCE Provider: GABRIELLE Sanders :1950 A ge:74 Y S ex:Male Date:03/26/2025 Address:[address] [place] [address] LUIZ KAMINSKI , [facility]-[id number] Pcp:Nas Shea Subjective: * Chief Complaints: * [...] diuretics adjusted. He has not seen a washing machine installer. During walking test today in clinic his [...] AD , alert , pleasant; presents with home care music therapist in a wheelchair. H eart: R RR. [...] * Images: Billing Information: * Visit Code: 25822 Office Visit, Est Pt., Level 3. * Procedure Codes: G2211 Complex e/m visit add on. G8420 BMI<30 AND >=22 CALC & DOCU. G8950 PREHTN/HTN BP DOC INDCD F/U DOC. G8752 MOST RECENT SYSTOLIC BP < 140MM HG. G8754 MOST RECENT DIASTOLIC BP < 90MM HG. * Electronic signature of Dahlia Velez APRN on 05/03/2025 at 03:48 PM EDT Sign off status: Pending * Provider: GABRIELLE Sanders Date: 0 03/26/2025 Generated for Galilea lozano/Ken/Stevenitting on: 0 05/03/2025 03:48 PM EDT History and Physical Notes * [...] , alert , pleasa nt; presents with home care music therapist in a wheelchair Neurologic Exam: alert and oriented
--- OUTSIDE RECORDS SUMMARY | 2025-04-18 05:00 | XMS_ITS ---
Author Organization [facility] Address [address] [place] [address] 36 [facility] [address] [place] [phone] Care Team Providers Care Business Insight And Analytics Manager Name Role Phone Nas Shea Primary Care Provider REASON FOR VISIT 6 months Encounters Encounter Location Date Provider Diagnosis [facility] [address] [facility] 36 [facility] [address] [place] [id number] 04/18/2025 Nas Shea Plan Of Treatment Next Appt Details Provider Name:Nas Anand et, 05/07/2025 04:30:00 PM, 1210 [facility] 36 [facility], [address], [place], [id number], Progress Notes * ANGIE SWANOB: 0 (74 yo M)Acc No.[id number]:04/18/2025 Progress Notes Patient: Henry KEV CHEUNG Provider: Nas Shea M.D. :1950 A ge:74 Y S ex:Male Date:04/18/2025 Address:[address] [place] [address] TODD KAMINSKI , [place], [id number] Subjective: * Chief Complaints: * 1 . 6 months. * Medical History: Objective: * Vitals: Assessment: Plan: * Treatment: * Images: Billing Information: * Visit Code: * Procedure Codes: * Electronic signature of Nas Shea MD on 05/03/2025 at 03:49 PM EDT Sign off status: Pending * Provider: Nas Shea M.D. Date: 0 04/18/2025 Generated for Galilea lozano/Ken/Lynn on: 0 05/03/2025 03:49 PM EDT
--- OUTSIDE RECORDS SUMMARY | 2025-04-25 07:30 | XMS_ITS ---
Author Organization [facility] Address [address] [id number] Care Team Providers Care Rehabilitation Psychologist Name Role Phone Nas Shea Primary Care Provider [phone] Allergies No Known Allergies REASON FOR VISIT [...] Risk Notes Problem Cardiac pacemaker in situ ([id number]) Pacemaker (Z95.0) Active confirmed Vital Signs Blood pressure systolic 112 mm Hg 04/25/20 25 Blood pressure diastolic 64 mm Hg 025 Heart Rate 78 /min 04/25/2025 Height 72 in 04/25/2025 Weight 187 lbs 04/25/2025 BMI 25.36 kg/m2 04/25/2025 Encounters Encounter Location Date Provider Diagnosis [facility] [address] [place], [place] [id number] 04/25/2025 R Jesus Monse Pacemaker Z95.0 ; Sk in tear of forearm without complication S51.819A ; Cardiomyopathy I42.9 ; History of ASCVD Z86.79 ; BPH (benign prostatic hyperplasia) N40.0 ; Diabetes mellitus E11.9 ; Peripheral neuropathy G62.9 and Multiple myeloma C90.00 Assessments Encounter Date Diagnosis (ICD Code) Assessment [...] month 04/25/2025 Multiple myeloma (ICD-10 - C90.00) Plan Of Treatment Medication Medication Name Sig [...] Follow Up: 3 Months, Reason: Provider Name:Nas Lee Jomarkal stevens, 05/07/2025 04:30:00 PM, [address], [place], [place], [id number], Progress Notes * ANGIE SWANOB: 0 (74 yo M)Acc No.[id number]:04/25/2025 Progress Notes Patient: KEV LUZ Provider: Nas Shea M.D. :1950 A ge:74 Y S ex:Male Date:04/25/2025 Address:[address] [place] [address] [facility]-[id number] Subjective: * Chief Complaints: * 1 . Skin Tear on Left Arm Possibly Infected. * HPI: C ardiology: He had a permanent pacemaker placed yesterday by Dr. Yates. Xarelto is currently on hold. His Lasix dose was increased. He tells me the patient registration rep would like for him to wean off [...] a Adaptic with a sterile dressing. K johanna/Hernandez: He has been following with Dr. De [...] stents 03/08/2007, Open Heart Surgery-Dr Mott @ [facility] 12/2015, thoracentesis 12/2015, Laparoscopic cholecystectomy - Dr. Wallace 09/06/2016, cardiac defibirilltor placed-Dr Yates 07/04/2020, cataract surgery-right eye 12/2020, Knee Surgery - Due to Infection -01/2025, Cardiac Pacemaker 04/24/2025. * Hospitalization/Major Diagno stic Procedure: H ER-suture to pinky finger of left hand 09/25/2009, C-scope - Dr. Kimball 09/2013, [facility] ER-Afib 01/2016, [facility] pancreatitis 09/02/2016, Left heart cath/[place]/ normal flow of revascularized vessels 02/2017, [facility]-tachycardia 07/02-12/2019, [facility] UTC - Fall 11/14/2023. * Family [...] G62.9 ?8. M ultiple myeloma - C90.00 Plan: * Treatment: 2. P eripheral neuropathy Continue Amitriptyline HCl Tablet, 50 MG, 1.5 tab(s), orally, once a day (at bedtime), Notes to Pharmacist: Instructed to wean by 1/2 tablet daily per month. Notes: Instructed to wean by one half tabs daily per month 3. O thers Start traMADol HCl Tablet, 50 MG, 1 tab, Orally, twice a day prn pain, 60. * Follow Up: 3 Months * Images: Billing Information: * Visit Code: 91198 Office Visit, Est Pt., Level 4. * Procedure Codes: * Electronic signature of Nas Shea MD on 05/03/2025 at 03:49 PM EDT Sign off status: Pending * Provider: Nas Shea M.D. Date: 0 04/25/2025 Generated for Meloniei marta/Ken/Stevenitting on: 0 05/03/2025 03:49 PM EDT History and Physical Notes * [...] sterile dressing. Cardiology He tells me the patient registration rep would like for him to wean off [...]
--- OUTSIDE RECORDS SUMMARY | 2025-05-03 15:49 | XMS_ITS | Encounter Summary ---
Author Organization [place] [address] Care Team Providers Care Sports Coordinator Name Role Phone Unavailable Primary Care Provider Unavailabl e Encounter Details Date Type Department Care Team (Late st Contact Info) Description 01/07/2023 Orders Only [facility] [place] [phone] Barbara Bess MD [address] [place] [phone] Social History Tobacco Use Types Packs/Day Years [...] AM EST) 01/07/2023 9:45 AM EST Narrative [facility] - 01/17/2023 1:28 PM EDT Requesting Provider: GIOVANNA Chaney Specimen = [id number] us Barbara Bess MD PATHOLOGY ORDERABLES Final Resul t [facility] [address] [place] [address] documented in this encounter Visit Diagnoses Not on filedocumented in this encounter
--- OUTSIDE RECORDS SUMMARY | 2025-05-03 15:49 | XMS_ITS | Encounter Summary ---
Author Organization [place] [address] Care Team Providers Care Gold Burnisher Name Role Phone Unavailable Primary Care Provider Unavailabl e Encounter Details Date Type Department Care Team (Late st Contact Info) Description 01/07/2023 [facility] [place] [id number] Barbara Bess MD [address] [place] [phone] Social History Tobacco Use Types Packs/Day Years [...] AM EST) 01/07/2023 9:45 AM EST Narrative [facility] - 01/16/2023 11:22 AM EDT Requesting Provider: GIOVANNA Chaney Specimen = [id number] us Barbara Bess MD PATHOLOGY ORDERABLES Final Resul t Performing Organization Address City/State/[place] Co de Phone Number [facility] [address] [place] [address] documented in this encounter Visit Diagnoses Not on filedocumented in this encounter
--- OUTSIDE RECORDS SUMMARY | 2025-05-03 15:49 | XMS_ITS | Encounter Summary ---
Author Organization [facility] Address [address] [place] [address] Care Team Providers Care Parts Expediter Name Role Phone Kai Shea MD Primary Care Provider [phone] Jessica Perales DO Unavailable [phone] Encounter Details Date Type Department Care Team (Late st Contact Info) Description 12/31/2024 Lab Requisition [facility] [address] [place] [address] Valdo Carrillo, CARLOS [address] [place] [address] Encounter for general adult medical examination without [...] place to sleep or slept in a long term (including now)? No 05/04/2024 PHQ-9 Answer Date [...] drink first t vane in the morning (EYE-STRUCTURAL STEEL EQUIPMENT ERECTOR) to steady your nerves or to get [...] Appointment [facility] Radiology [address] [place] [address] documented as of this encounter Procedures Procedure Name Priority Date/Time Associated Diagnosis Comments BODY FLUID CULTURE AND GRAM STAIN Routine 12/31/2024 5:40 PM EST Encounter for general adult medical examination without abnormal findings documented in this encounter Results * (ABNORMAL) Body Fluid Culture and Gram Stain (12/31/2024 5:40 PM EST) Culture Light Growth 01/06/2025 10:47 AM EDT [facility] Culture Staphylococcus epidermidis(A) [place] 01/06/2025 10:47 AM EDT [facility] Comment: This isolate has been identified using the FDA Approved [employer] [place] System The organism value for this result has been updated. These results have been appended to the previously preliminary verified report. Edited result: Previously reported as Gram positive cocci on 01/02/2025 at 0908 EST. Gram Stain Result Numerous Polymorphonuclear leukocytes(A) 01/06/2025 10:47 AM EDT [facility] Gram Stain Result Rare Gram positive cocci in pairs(A) 01/06/2025 10:47 AM EDT [facility] Joint Fluid Synovial fluid specimen [...] LAB MICROBIOLOGY - GENERAL ORDERABLES Final Result [facility] [address] [place] [address] documented in this encounter Visit Diagnoses Diagnosis [...] documented as of this encounter Care Teams Parts Expediter Relationship Specialty Start Date End Date Kai Shea MD [address] [place] [address] PCP - General 03/13/21 Jessica Perales DO [address] [place] [address] Resident Neurology 06/16/21 documented as of this encounter
--- OUTSIDE RECORDS SUMMARY | 2025-05-03 15:49 | XMS_ITS | Clinical Summary ---
Author Organization [facility] Address [address] [facility] [address] [place] [address] Phone Care Team Providers Care Milliner Helper Name Role Phone Unavailable Primary Care Provider [...] season) 2024 10/08/2021, 01/16/2021, 12/24/2020 Influenza Vaccine (#1) 2025 DTaP/TDaP/Td (2 - Td or Tdap) 01/19/2029 01/19/2019 Hepatitis B Vaccine Aged Out No longe r eligible based on patient's age to complete this topic Meningococcal B Vaccine Aged Out No l onger eligible based on patient's age to complete this topic Insurance FEDERAL [facility] FEDERAL MEDICARE [place] PART A AND B FEDERAL
--- OUTSIDE RECORDS SUMMARY | 2025-05-03 15:49 | XMS_ITS | Clinical Summary ---
Author Organization [facility] Address [address] [place] [address] Care Team Providers Care Script Supervisor Name Role Phone Kai Shea MD Primary Care Provider [phone] Jessica Perales DO Unavailable [phone] Allergies No known active allergies Medications atorvastatin [...] Encounters Date Type Department Care Team Description 04/22[facility] [place] [facility] [place] [address] Monica Sue MD from Last 3 Months Immunizations Immunization Administration Dates Next Due Wardrobe Housekeeper COVID-19 Vaccine (Purple Cap) 12 + 01/16/2021,12/24/2020 [...] place to sleep or slept in a halfway (including now)? No 05/04/2024 PHQ-9 Answer Date [...] drink first t vane in the morning (EYE-FOREST ECOLOGY PROFESSOR) to steady your nerves or to get [...] Appointment [facility] Radiology [address] [place] [address] Health Maintenance Due Date Last Done Comments [facility]-Medicare Annual Wellness (AWV) 1950 [facility]-Infant/Child/Adol SDOH Screenings 1950 [facility]-Zoster Vaccines (1 of 2) 1969 CT Colonography 1995 Colonoscopy 1995 FIT-DNA 1995 FIT 1995 FOBT 1995 Sigmoidoscopy 1995 [facility]-Colorectal Cancer Screening 1995 [facility]-RSV Vaccine: 60+ Years or (1 - Risk 60-74 years 1-dose series) 2010 [facility]-Pneumococcal Vaccine: 50+ Years (2 of 2 - PPSV23) 03/16/2019 01/19/2019 LYR-GKRGZ-12 Vaccine ( season) 2024 10/08/2021, 01/16/2021, 12/24/2020 [facility]- SDOH Screenings 11/04/2024 [facility]-Adult SDOH Screenings 11/04/2024 05/04/2024 [facility]-Influenza Vaccine (#1) 2025 [facility]-Depression Screening 12/03/2025 12/03/2024, 0212/2024 [facility]-DTaP,Tdap,and [...] Procedure Name Priority Date/Time Associated Diagnosis Comments HEPATITIS C ANTIBODY - ED W/REFLEX TO HCV QUANT PCR STAT 05/03/2024 4:48 PM EDT from Last 3 Months or Most Recently Relevant to Health Maintenance Results * Hepatitis C Antibody - ED (05/03/2024 4:48 PM EDT) Hepatitis C Antibody Negative Negative 05/03/2024 5:[address] [facility] Blood Venous blood specimen / Unknown Venipuncture / Unknown 05/03/2024 4:48 PM EDT 05/03/2024 4:58 PM EDT us Rome Dominguez MD LAB BLOOD ORDERABLES Final Result Performing Organization Address City/State/[facility] Co de Phone Number [facility] [address] [place] [address] from Last 3 Months or Most Recently Relevant to Health Maintenance Insurance [facility] MEDICARE Advance Directives Documents on File Type Date Recorded Patient Service Coordinator Expl anation Advance Directives and Living Will 05/04/2024 2:43 PM patient does not hav e an AD * Full Code (Latest Code Status on File) Date Activated Date Inactivated Comments 05/03/2024 10:21 PM 05/05/2024 2:20 PM Question Answer Comments Patient has decision-making capacity? Yes Care Teams Script Supervisor Relationship Specialty Start Date End Date Kai Shea MD [address] [place] [address] PCP - General 03/13/21 Jessica Perales DO [address] [place] [address] Resident Neurology 06/16/21
--- OUTSIDE RECORDS SUMMARY | 2025-05-03 15:49 | XMS_ITS | Encounter Summary ---
Author Organization [facility] Address [address] [place] [address] Care Team Providers Care Educational Speech Language Clinician Name Role Phone Kai Shea MD Primary Care Provider [phone] Jessica Perales DO Unavailable Encounter Details Date Type Department Care Team (Late st Contact Info) Description 11/05/2024 Orders Only [place] [facility] [address] [place] [address] Rome York, DO [address] [place] [phone] Neuropathy Social History Tobacco Use Types Packs/Day [...] a long term (including now)? No 05/04/2024 CAGE ASSESSMENT Answer [...] drink first t vane in the morning (EYE-CARGO TANK MECHANIC) to steady your nerves or to get [...] Appointment [facility] Radiology [address] [place] [address] documented as of this encounter Visit Diagnoses Diagnosis Neuropathy Mononeuritis of unspecified site documented in this encounter Additional Health Concerns Assessment Noted Time A fall risk assessment has been complete d for the patient 12/19/2023 3:03 PM EST A Body Mass Index follow-up plan has been documented for the patient 05/05/2024 11:32 AM EDT documented as of this encounter Care Teams Educational Speech Language Clinician Relationship Specialty Start Date End Date Kai Shea MD [address] [place] [address] PCP - General 03/13/21 Jessica Perales DO [address] [place] [address] Resident Neurology 06/16/21 documented as of this encounter
--- OUTSIDE RECORDS SUMMARY | 2025-05-03 15:49 | XMS_ITS | Encounter Summary ---
Author Organization [place] [address] Care Team Providers Care Cooper Helper Name Role Phone Unavailable Primary Care Provider Unavailabl e Encounter Details Date Type Department Care Team (Late st Contact Info) Description 01/07/2023 Orders Only [facility] [place] [id number] Barbara Bess MD [address] [place] [phone] Social History Tobacco Use Types Packs/Day Years [...] AM EST) 01/07/2023 9:45 AM EST Narrative [facility] - 01/24/2023 5:22 PM EDT Requesting Provider: GIOVANNA Chaney Specimen = [id number] us Barbara Bess MD PATHOLOGY ORDERABLES Final Resul t [facility] [address] [place] [address] documented in this encounter Visit Diagnoses Not on filedocumented in this encounter
--- OUTSIDE RECORDS SUMMARY | 2025-05-03 15:49 | XMS_ITS | Encounter Summary ---
Author Organization Healthcare Address [address] [place] [address] Care Team Providers Care Video Engineer Name Role Phone Kai Shea MD Primary Care Provider [phone]- [phone] Jessica Perales DO Unavailable [phone] Encounter Details Date Type Department Care Team (Late st Contact Info) Description 12/31/2024 Lab Requisition [facility] [address] [place] [address] Valdo Carrillo, CARLOS [address] [place] [address] Encounter for general adult medical examination without [...] drink first t vane in the morning (EYE-FUR MIXER) to steady your nerves or to get [...] Appointment [facility] Radiology [address] [place] [address] documented as of this encounter Procedures Procedure [...] LAB HEMATOLOGY METHOD 01/01/2025 2:08 PM EST [facility] Specimen Source, Body Fluid LAB HEMATOLOGY METHOD 01/01/2025 2:08 PM EST [facility] Clinical Diagnosis, Body Fluid Joint fluid. Neuropathy. History of plasma cell neoplasm and Parkinson's LAB HEMATOLOGY METHOD 01/01/2025 2:08 PM EST [facility] Interpretation , Body Fluid No evidence of malignancy; acute inflammatory cells. See comment A resident was involved in the service. I attest I examined the relevant preparations for the specimens and confirmed the diagnosis or interpretation. 01/01/2025 2:08 PM EST [facility] Pathologist Signature, Body Fluid 01/01/2025 2:08 PM EST [facility] Comment:Reviewed by: Prashanth Montiel MD LAB CP ASR DISCLAIMER Yes 01/01/2025 2:08 PM EST [facility] Joint Fluid 12/31/2024 3:15 PM EST 12/31/2024 6:01 PM EST Narrative [facility] - 01/01/2025 2:08 PM EST Correlation with microbiology studies is suggested. Valdo GONZALEZ LAB BODY FLUIDS AND STOOLS ORDERABLES Final Result [facility] [address] [place] [address] * (ABNORMAL) Body Fluid Cell Count w/ Diff (12/31/2024 3:15 PM EST) Color, Body fluid Yellow LAB HEMATOLOGY METHOD 12/31/2024 8:00 PM EST [facility] Appearance, Body fluid Cloudy(A) LAB HEMATOLOGY METHOD 12/31/2024 8:00 PM EST [facility] Volume, Body fluid 2.5 cc LAB HEMATOLOGY METHOD 12/31/2024 8:00 PM EST [facility] Fluid Container Specimen received in EDTA tube LAB HEMATOLOGY METHOD 12/31/2024 8:00 PM EST [facility] Red Blood Cell Count, Body fluid 5,000 uL LAB HEMATOLOGY METHOD 12/31/2024 8:00 PM EST [facility] Total Nucleated Cell Count, Body fluid 44,000 uL LAB HEMATOLOGY METHOD 12/31/2024 8:00 PM EST [facility] Neutrophils %, Body fluid 95 % LAB HEMATOLOGY METHOD 12/31/2024 8:00 PM EST [facility] Lymphocytes %, Body fluid 1 % LAB HEMATOLOGY METHOD 12/31/2024 8:00 PM [facility] Monocytes/Macro phages %, Body fluid 4 % LAB HEMATOLOGY METHOD 12/31/2024 8:00 PM [facility] Eosinophils %, Body fluid 0 % LAB HEMATOLOGY METHOD 12/31/2024 8:00 PM [facility] Lining/Mesothel ial Cells %, Body fluid 0 % LAB HEMATOLOGY METHOD 12/31/2024 8:00 PM EST [facility] Neutrophils Absolute (PMN), Body fluid 41,800 uL LAB HEMATOLOGY METHOD 12/31/2024 8:00 PM [facility] Lymphocytes Absolute, Body fluid 440 uL LAB HEMATOLOGY METHOD 12/31/2024 8:00 PM [facility] Monocytes/Macro phages Absolute, Body fluid 1,760 uL LAB HEMATOLOGY METHOD 12/31/2024 8:00 PM [facility] Eosinophils Absolute, Body fluid 0 uL LAB HEMATOLOGY METHOD 12/31/2024 8:00 PM EST [facility] Basophils Absolute, Body fluid 0 uL LAB HEMATOLOGY METHOD 12/31/2024 8:00 PM EST [facility] Lining/Mesothel ial Cells Absolute, Body fluid 0 uL LAB HEMATOLOGY METHOD 12/31/2024 8:00 PM EST [facility] Comment, Body fluid None LAB HEMATOLOGY METHOD 12/31/2024 8:00 PM EST [facility] Comment:This is an appended report. These results have been appended to a previously preliminary verified report. Basophils %, Body fluid 0 % LAB HEMATOLOGY METHOD 12/31/2024 8:00 PM EST [facility] Joint Fluid 12/31/2024 3:15 PM EST 12/31/2024 6:01 PM EST us Valdo GONZALEZ LAB BODY FLUIDS AN D STOOLS ORDERABLES NO SPECIMEN TYPE/SOURCE Final Result Performing Organization Address [facility] Co de Phone Number [facility] [address] [place] [address] * (ABNORMAL) Synovial fluid, crystal (12/31/2024 3:15 PM EST) Crystals, Joint Fluid Calcium Pyrophosphate Crystals Present(A) No Crystals Present 12/31/2024 11:06 PM EST [facility] Joint Fluid 12/31/2024 3:15 PM EST 12/31/2024 6:01 PM EST Narrative [facility] - 12/31/2024 11:06 PM EST Under compensated polarized light microscopy rhomboidal positively birefringent crystals are seen consistent with Calcium Pyrophosphate. The presence of steroid crystals may result in a false positive. Correlate results with recent history up to 2 months of steroid injection. us Valdo GONZALEZ LAB BODY FLUIDS AND STOOLS ORDERABLES Final Result Performing Organization Address [facility] Co de Phone Number [facility] [address] [place] [address] documented in this encounter Visit Diagnoses Diagnosis [...] documented as of this encounter Care Teams Video Engineer Relationship Specialty Start Date End Date Kai Shea MD [address] [place] [address] PCP - General 03/13/21 Jessica Perales DO [address] [place] [address] Resident Neurology 06/16/21 documented as of this encounter
--- OUTSIDE RECORDS SUMMARY | 2025-05-03 15:49 | XMS_ITS | Encounter Summary ---
Author Organization Healthcare Address [address] [place] [address] Care Team Providers Care Glazing Superintendent Name Role Phone Kai Shea MD Primary Care Provider [phone]- [phone] Jessica Perales DO Unavailable [phone] Encounter Details Date Type Department Care Team (Late st Contact Info) Description [facility] - [facility] [address] [place] [address] Monica Sue MD [address] [place] [address] Social History Tobacco Use Types Packs/Day Years [...] place to sleep or slept in a residential (including now)? No 05/04/2024 PHQ-9 Answer Date [...] drink first t vane in the morning (EYE-COLLAR SEPARATOR) to steady your nerves or to get [...] Appointment [facility] Radiology [address] [place] [address] documented as of this encounter Visit Diagnoses Not on filedocumented in this encounter Additional Health Concerns Assessment Noted Time PHQ-9 Depression Total Score: 6 12/03/19 25 1:11 PM EST A fall risk assessment has been complete d for the patient 12/03/2024 1:11 PM EST A Body Mass Index follow-up plan has been documented for the patient 12/10/2024 9:53 AM EST documented as of this encounter Care Teams Glazing Superintendent Relationship Specialty Start Date End Date Kai Shea MD [address] [place] [address] PCP - General 03/13/21 Jessica Perales DO [address] [place] [address] Resident Neurology 06/16/21 documented as of this encounter
--- OUTSIDE RECORDS SUMMARY | 2025-05-03 15:50 | XMS_ITS | Patient Health Record ---
Author Organization [facility] Address [address] [place] [id number] Care Team Providers Care Automatic Cigar Wrapper Tender Name Role Phone Nas Shea Primary Care Provider VelezLudyJessie Unavailable [phone] Allergies No Known Allergies Results Component Value Reference Range Notes Glycohemoglobin A1c (in hous e) Reviewed date:10/20/2024 11:28:50 AM Interpretation:6.4 Performing Lab: Notes/Report: 6.4 glycohemoglobin 6.4% 5 - 6.5 % P-Lipid Panel Reviewed date:10/20/2024 11:28:49 AM Interpretation:Normal Performing Lab: Notes/Report: Test performed by [facility] [address] , [address], [place] [address] Renato Cobb MD, Roller Picker CLIA: [id number] Cholesterol 128 <200 mg/dL Triglycerides 147 <150 [...] Results: 59 Units: mg/dL % Change: +96% P-PSA Reviewed date:10/20/2024 11:28:50 AM Interpretation:4.34 Performing Lab: Notes/Report: Test performed by [facility] [address] [place] [address] [address], [place] [address] Renato Cobb MD, Roller Picker CLIA: [id number] PSA 4.34 <4.00 ng/mL Please note this is an ultrasensitive PSA assay with a lower limit of detection of 0.014 ng/mL. This test is performed by the Becki ECLIA methodology. Values obtained with different assay methods or kits cannot be directly compared. P-TSH Reviewed date:10/20/2024 11:28:50 AM Interpretation:Normal Performing Lab: Notes/Report: Test performed by [facility] [address] [place] [address] [place] [address] Renato Cobb MD, Roller Picker CLIA: [id number] TSH 2.38 0.43-5.25 mU/L Estimated Average Glucose Reviewed date:02/07/2025 08:17:27 AM Interpretation: Performing Lab: Notes/Report: Test performed by [facility] [address] [place] [address] [place] [address] Renato Cobb MD, Roller Picker CLIA: [id number] Estimated Average Glucose (eAG) 151 Estimated Average Glucose (eAG) is calculated using the equation eAG = (28.7 x HbA1c) - 46.7 based on the guidelines established by the ADA. If the patient has certain diseases including kidney disease, sickle cell anemia, thalassemia, or is taking medications such as dapsone, erythropoietin, or iron, eAG should not be evaluated. H-CBC Reviewed date:01/02/2025 08:41:58 AM Interpretation: Performing [...] 119 74-100 mg/dl CA 8.8 8.4-10.2 mg/dl P-Hemoglobin A1C Reviewed date:02/07/2025 08:17:27 AM Interpretation: Performing Lab: Notes/Report: Test performed by [facility] [address] [place], [place] [address] [place] , [facility], [place] [address] Renato Cobb MD, Roller Picker CLIA: [id number] Hemoglobin A1C 6.9 <5.7 % The following HbA1c ranges recommended by the [place] [employer] (ADA) may be used as an aid in the diagnosis of diabetes mellitus. HbA1c Suggested Diagnosis >=6.5% Diabetic 5.7% - 6.4% Pre-Diabetic <5.7% Non-Diabetic P-TSH Reviewed date:02/07/2025 08:17:27 AM Interpretation: Performing Lab: Notes/Report: Test performed by [facility] [address] [place], [place] [address] [address], [place] [address] Renato Cobb MD, Roller Picker CLIA: [id number] TSH 2.88 0.43-5.25 mU/L Medications Medication SIG (Take, Route, Frequency, Duration) Notes Start Date End Date Status traMADol HCl 50 MG 1 tab Orally twice a day prn pain 04/25/2025 Active Omeprazole 40 mg TAKE ONE CAPSULE BY MOUTH EVERY DAY; Duration: 90 Active Tamsulosin HCl 0.4 mg TAKE ONE CAPSULE BY MOUTH EVERY DAY Active Amitriptyline HCl 50 MG 1.5 tab(s) orally once a day (at bedtime) Instructed to wean by 1/2 tablet daily per month Active Xarelto 20 MG 1 tablet with food Orally Once a day 10/19/2024 Active Lasix 40 MG 1 tablet Orally every other day Active Bisoprolol Fumarate 5 MG 1 tab(s) orally once a day; Duration: 90 days Active Lasix 20 MG 1 tablet Orally every other day prn Active hydroCHLOROthiazide 25 MG 1 tab(s) orall [...] Vaccine Route Administration Date Status Comme nts Tetanus Tdap-Adacel (over 7yrs) IM Intramuscular 01/19/2019 Administered Tetanus Tdap-Adacel (over 7yrs) Unknown 03/17/2023 Administered Shingrix Unknown 12/01/2018 Administered Shingrix IM Intramuscular 01/10/2019 Administered Prevnar (PCV13) IM Intramuscular 01/19/2019 Administered Fluzone High Dose (65yr and older) Unknown 01/19/2019 Refused COVID 19 Pfizer Unknown 12/24/2020 Administered COVID 19 Pfizer Unknown 01/16/2021 Administered COVID 19 Pfizer Unknown 10/08/2021 Administered Problems Problem Type SNOMED Code ICD Code Onset Dates Problem Status W/U Status Risk Notes Problem Coronary arteriosclerosis (19260812) 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) Active confirmed Problem History of circulatory system disease (044606634) History of ASCVD (Z86.79) Active confirmed Problem Essential hypertension (23574959) Essential hypertension (I10) Active confirmed Problem Diabetes mellitus with neuropathy (957503907) Diabetes mellitus with neuropathy (E11.40) Active confirmed Problem Benign prostatic hyperplasia (893134107) BPH (benign prostatic hyperplasia) (N40.0) Active confirmed Problem Peripheral neuropathy (357550045) Peripheral neuropathy (G62.9) Active confirmed Problem Hearing loss (89102141) Hearing loss (H91.90) Active confirmed Problem Chronic tension-type headache (711931102) Chronic tension-type headache, not intractable (G44.229) Active confirmed Problem Chronic pain syndrome (321961033) Chronic pain syndrome (G89.4) Active confirmed Problem Chronic atrial fibrillation (834670886) Chronic atrial fibrillation (I48.2) Active confirmed Problem Hyperlipidemia due to type 2 diabetes mellitus (disorder) (943079853506255) Hyperlipidemia associated with type 2 diabetes mellitus (E11.69) Active confirmed Problem Diabetes mellitus (72230121) Diabetes mellitus (E11.9) Active confirmed Problem Gastroesophageal reflux disease (398573298) GERD without esophagitis (K21.9) Active confirmed Problem Unsteady gait (32195921) Unsteady gait (R26.81) Active confirmed Problem Gastroesophageal reflux disease without esophagitis (603265686) Gastroesophageal reflux disease without esophagitis (K21.9) Active confirmed Problem Acquired hypothyroidism (919495526) Acquired hypothyroidism (E03.9) Active confirmed Problem Cardiac pacemaker in situ (762957672) Pacemaker (Z95.0) Active confirmed Problem Lower urinary tract symptoms due to benign prostatic hypertrophy (07233326665832) Benign non-nodular prostatic hyperplasia with lower urinary tract symptoms (N40.1) Active confirmed Problem Displacement of lumbar intervertebral disc without myelopathy (07482383) Bulging lumbar disc (M51.26) Active confirmed Problem Cardiomyopathy (59623192) Cardiomyopathy (I42.9) Active confirmed Problem Multiple myeloma (078411617) Multiple myeloma (C90.00) Active confirmed Problem Dyslipidemia (970390751) Dyslipidemia (E78.5) Active confirmed Problem Skin ulcer (disorder) (18215788) Skin ulcer, limited to breakdown of skin (L98.491) Active confirmed Problem Restless legs (56237108) RLS (restless legs syndrome) (G25.81) Active confirmed Problem Peripheral circulatory disorder associated with diabetes mellitus (536003057) 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) Active confirmed Problem Lumbar spondylosis with myelopathy (01554381) Lumbar spondylosis with myelopathy (M47.16) Active confirmed Problem Significant coronary bypass graft disease (311993703) Coronary artery disease involving coronary bypass graft of [place] heart without angina pectoris (I25.810) Active confirmed Problem Chronic atrial fibrillation (614771242) Chronic atrial fibrillation (I48.20) Active confirmed Problem Automatic implantable cardiac defibrillator in situ (479544088) Cardiac defibrillator in place (Z95.810) Active confirmed Problem Monoclonal gammopathy of uncertain significance (disorder) (236480111) 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) Active confirmed Problem Pseudogout (667022210) Pseudogout (M11.20) Active confirmed Vital Signs Heart Rate 78 /min 04/25/2025 Blood pressure diastolic 64 mm Hg 04/25/2025 Height 72 in 04/25/2025 Blood pressure systolic 112 mm Hg 04/25/2025 Weight 187 lbs 04/25/2025 BMI 25.36 kg/m2 04/25/2025 Encounters Encounter Location Date [facility] [id number] [facility]18/[facility]24 Nas Shea Type 2 diabetes mellitus [...] C90.00 and Screening for prostate cancer Z12.[address] [id number] 01/21/2025 Jessie Velez Septic arthritis of knee M00.9 and Abrasions of multiple sites T07.XXXA [address] [id number] 02/05/2025 Nas Shea 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.59 ; Staphylococcal arthritis of right knee M00.061 ; Acquired hypothyroidism E03.9 ; Multiple myeloma C90.00 ; Diabetes mellitus with neuropathy E11.40 ; Dyslipidemia E78.5 ; Essential hypertension I10 ; Cardiomyopathy I42.9 and BMI 25.0-25.9,adult Z68.25 [facility] [address] [facility] [address] [place], [place] [id number] 03/19/2025 Jessie Velez Edema leg R60.0 ; [...] hyperplasia) N40.0 and Chronic atrial fibrillation I48.20 [facility] [facility] [address] [place], [place] [id number] 03/26/2025 Jessie Velez Hypotension I95.9 ; Edema of both legs R60.0 and BMI 28.0-28.9,adult Z68.28 [facility] [address] [facility] [address] [place], [place] [id number] 04/25/2025 R Jesus Monse Pacemaker Z95.0 ; Sk in tear of forearm without complication S51.819A ; Cardiomyopathy I42.9 ; History of ASCVD Z86.79 ; BPH (benign prostatic hyperplasia) N40.0 ; Diabetes mellitus E11.9 ; Peripheral neuropathy G62.9 and Multiple myeloma C90.00 [facility] [address] [facility] [address] [place], [place] [id number] 10/19/2024 R Jesus Monse ASCVD (arteriosclero tic cardiovascular disease) I25.10 [facility] [address] [place], [place] [id number] 10/20/2024 R Jesus Monse [facility] [address] [facility] [address] [place], [place] [id number] 01/03/2025 R Jesus Monse [facility] [address] [place], [place] [id number] 02/07/2025 R Jesus Monse [facility] [address] [facility] [address] [place] [id number] 03/19/2025 Nas Shea Assessments Encounter Date Diagnosis (ICD Code) Assessment Notes Treatment Notes Treatment Clinical Notes Section Notes 10/18/2024 Hyperlipidemia associated with type 2 diabetes mellitus (ICD-10 - E11.69) 10/19/2024 ASCVD (arteriosclerotic cardiovascular disease) (ICD-10 - [...] ; to keep on greer cover atop 10/18/2024 Type 2 diabetes mellitus with other circulatory complication (ICD-10 - E11.59) 02/05/2025 Type 2 diabetes mellitus with other circulatory complication (ICD-10 - E11.59) 02/05/2025 Staphylococcal arthritis of right knee (ICD-10 - M00.061) 03/26/2025 Hypotension (ICD-10 - I95.9) BP has been normal; no med changes; to keep cardiology FU appt 04/25/2025 Pacemaker (ICD-10 - Z95.0) 04/25/2025 Skin tear of forearm without complication (ICD-10 - S51.819A) Instructed on wound care. Allow wound to be open to air for gradually more time each day 03/19/2025 Hypotension (ICD-10 - I95.9) will continue to monitor BP; care with ambulation; continues to use walker with ambulation 03/19/2025 Edema leg (ICD-10 - R60.0) family notes that he has gained about 9# within the last week; after confering with Carlos GONZALEZ cardiology, pt will take 3 days of Lasix while monitoring BP and taking care with ambulation 03/19/2025 ASCVD (arteriosclerotic cardiovascular disease) (ICD-10 - I25.10) discussed with Carlos Dhillon cardiology ; reviewed labs and ECHO 04/25/2025 Cardiomyopathy (ICD-10 - I42.9) 03/26/2025 Edema of both legs (ICD-10 - R60.0) will continue to monitor; no med changes; to keep cardiology appt 02/05/2025 Acquired hypothyroidism (ICD-10 - E03.9) 10/18/2024 Diabetes mellitus with neuropathy (ICD-10 - E11.40) 10/18/2024 Essential hypertension (ICD-10 - I10) 03/26/2025 BMI 28.0-28.9,adult (ICD-10 - Z68.28) 04/25/2025 History of ASCVD (ICD-10 - Z86.79) 02/05/2025 Multiple myeloma (ICD-10 - C90.00) 03/19/2025 Cardiomyopathy (ICD-10 - I42.9) reviewed recent ECHO 03/19/2025 MGUS (monoclonal gammopathy of unknown significance) (ICD-10 - D47.2) 02/05/2025 Diabetes mellitus with neuropathy (ICD-10 - E11.40) 04/25/2025 BPH (benign prostatic hyperplasia) (ICD-10 - N40.0) 10/18/2024 Acquired hypothyroidism (ICD-10 - E03.9) 10/18/2024 Dyslipidemia (ICD-10 - E78.5) 02/05/2025 Dyslipidemia (ICD-10 - E78.5) 04/25/2025 Diabetes mellitus (ICD-10 - E11.9) 03/19/2025 Multiple myeloma (ICD-10 - C90.00) follows with dr. Eason; currently on vacation from [place] 03/19/2025 PVD (peripheral vascular disease) (ICD-10 - I73.9) 04/25/2025 Peripheral neuropathy (ICD-10 - G62.9) Instructed to wean by one half tabs daily per month 02/05/2025 Essential hypertension (ICD-10 - I10) 10/18/2024 ASCVD (arteriosclerotic cardiovascular disease) (ICD-10 - I25.10) 10/18/2024 Hearing loss (ICD-10 - H91.90) 04/25/2025 Multiple myeloma (ICD-10 - C90.00) 02/05/2025 Cardiomyopathy (ICD-10 - I42.9) 03/19/2025 Chronic atrial fibrillation (ICD-10 - I48.2) 03/19/2025 Type 2 diabetes mellitus with other circulatory complication (ICD-10 - E11.59) 10/18/2024 Diabetes mellitus (ICD-10 - E11.9) 02/05/2025 BMI 25.0-25.9,adult (ICD-10 - Z68.25) 10/18/2024 Peripheral neuropathy (ICD-10 - G62.9) 03/19/2025 [...] Next Appt Details Provider Name:Nas Solis, 05/07/2025 04:30:00 PM, [address], [place], [place], [id number], Insurance Providers Payer Name Payer Address Payer Phone Subscriber Number Group Number Insured Name Patient Relationship to Insured Coverage Start Date Coverage End Date MEDICARE PART B [address] [address] [place] [address] [id number] KEV DICK Self - patient is the insured [facility] [address] [place] [address] [id number] KEV DICK Self - patient is the insured Medical (General) History Medical History History ICD Code Hypertension ASCVD Hyperlipidemia Hearing Aids Declines Prevnar 05/2016, 12/2016 Atrial Fib - converted - 01/2016 [facility] pancreatitis - 08/2016 Peripheral neuropathy MGUS - monoclonal gammopathy of undeterm ined significance/ Dr. Parker Elevated PSA 4.3 (09/2019) Type 2 diabetes Normal CTA of lower extremities 02/[address] Malik Multiple myeloma - dx 2022 - Dr. Eason Surgical History Surgery Date(Month/Year) Coronary stents 03/08/2007 Open Heart Surgery-Dr Mott @ [facility] thoracentesis 12/2015 Laparoscopic cholecystectomy - Dr. Rolanda carballo 09/06/2016 cardiac defibirilltor placed-Dr Yates 07/04/2020 cataract surgery-right eye 12/2020 Knee Surgery - Due to Infection Cardiac Pacemaker 04/24/2025 Hospitalization History Reason Date(Month/Year) [facility] - Fall 11/14/2023 [facility]-tachycardia 07/02-12/2019 Left heart cath/[place]/ normal flow of revascularized vessels 02/2017 [facility] pancreatitis 09/02/2016 [facility] ER-Afib 01/2016 C-scope - Dr. Kimball 09/2013 [facility] ER-suture to pinky finger of left [place] 09/25/2009
--- OUTSIDE RECORDS SUMMARY | 2025-05-03 15:50 | XMS_ITS | Encounter Summary ---
Author Organization [place] [address] Care Team Providers Care Case Briefer Name Role Phone Unavailable Primary Care Provider Unavailabl e Encounter Details Date Type Department Care Team (Late st Contact Info) Description 01/07/2023 Orders Only [facility] [place]well[facility] [phone] Barbara Bess MD [address] [place] [phone] Social History Tobacco Use Types Packs/Day Years [...] Procedure Name Priority Date/Time Associated Diagnosis Comments Discoverly STANDARD LEUKEMIA/LYMPHOMA PANEL Routine 01/07/2023 9:45 AM EST documented in this encounter Results * NEOGENOMICS STANDARD LEUKEMIA/LYMPHOMA PANEL (01/07/2023 9:45 AM EST) 01/07/2023 9:45 AM EST Narrative [facility] - 01/10/2023 3:22 PM EDT Requesting Provider: GIOVANNA Chaney Specimen = [id number] us Barbara Bess MD PATHOLOGY ORDERABLES Final Resul t Performing Organization Address City/State/[facility] Co de Phone Number [facility] [address] [place] [address] documented in this encounter Visit Diagnoses Not on filedocumented in this encounter
--- OUTSIDE RECORDS SUMMARY | 2025-05-03 15:50 | XMS_ITS | Encounter Summary ---
Author Organization Healthcare Address [address] [place] [address] Care Team Providers Care Power Grader Operator Name Role Phone Kai Shea MD Primary Care Provider [phone] Jessica Perales DO Unavailable Encounter Details Date Type Department Care Team (Late st Contact Info) Description 01/15/2025 Lab Requisition [facility] [address] [place] [address] Sara Alegre [address] [place] [address] Encounter for general adult medical examination without [...] place to sleep or slept in a alf (including now)? 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 A resident was involved in the service. I attest I examined the relevant preparations for the specimens and confirmed the diagnosis or interpretation. 01/16/2025 4:15 PM EDT [facility] Pathologist Signature, Body Fluid 01/16/2025 4:15 PM EDT [facility] Comment:Reviewed by: Isabel Donohue MD LAB CP ASR DISCLAIMER Yes 01/16/2025 4:15 PM EDT [facility] Joint Fluid 01/15/2025 12:1 0 PM EDT 01/15/2025 2:41 PM EDT us Sara Codey LAB BODY FLUIDS AND STOOLS ORDER MARYLIN Final Result Performing Organization Address City/[facility]/ZIP Co de Phone Number [facility] [address] [place] [address] * (ABNORMAL) Joint Fluid Crystals (01/15/2025 12:10 PM EDT) Crystals, Joint Fluid Calcium Pyrophosphate Crystals Present(A) No Crystals Present 01/15/2025 7:55 PM EDT [facility] Joint Fluid 01/15/2025 12:1 0 PM EDT 01/15/2025 2:41 PM EDT Narrative [facility] - 01/15/2025 7:55 PM EDT Under compensated polarized light microscopy rhomboidal positively birefringent crystals are seen consistent with Calcium Pyrophosphate. The presence of steroid crystals may result in a false positive. Correlate results with recent history up to 2 months of steroid injection. Sara Codey LAB BODY FLUIDS AND STOOLS ORDER MARYLIN Final Result Performing Organization Address [facility] Co de Phone Number [facility] [address] [place] [address] * (ABNORMAL) Body Fluid Cell Count w/ Diff (01/15/2025 12:10 PM EDT) Color, Body fluid Red LAB HEMATOLOGY METHOD 01/15/2025 7:53 PM EDT [facility] Appearance, Body fluid Cloudy(A) LAB HEMATOLOGY METHOD 01/15/2025 7:53 PM EDT [facility] Volume, Body fluid 4.0 cc LAB HEMATOLOGY METHOD 01/15/2025 7:53 PM EDT [facility] Fluid Container Specimen received in Sodium Heparin LAB HEMATOLOGY METHOD 01/15/2025 7:53 PM EDT [facility] Red Blood Cell Count, Body fluid 45,500 uL LAB HEMATOLOGY METHOD 01/15/2025 7:53 PM EDT [facility] Comment:Clumps present, coun t may be affected. Test performed by manual method. Total Nucleated Cell Count, Body fluid 75,000 uL LAB HEMATOLOGY METHOD 01/15/2025 7:53 PM EDT [facility] Comment:Clumps present, coun t may be affected. Test performed by manual method. Neutrophils %, Body fluid 93 % LAB HEMATOLOGY METHOD 01/15/2025 7:53 PM EDT [facility] Lymphocytes %, Body fluid 0 % LAB HEMATOLOGY METHOD 01/15/2025 7:53 PM EDT [facility] Monocytes/Macro phages %, Body fluid 7 % LAB HEMATOLOGY METHOD 01/15/2025 7:53 PM EDT [facility] Eosinophils %, Body fluid 0 % LAB HEMATOLOGY METHOD 01/15/2025 7:53 PM EDT [facility] Lining/Mesothel ial Cells %, Body fluid 0 % LAB HEMATOLOGY METHOD 01/15/2025 7:53 PM EDT [facility] Neutrophils Absolute (PMN), Body fluid 69,750 uL LAB HEMATOLOGY METHOD 01/15/2025 7:53 PM EDT [facility] Lymphocytes Absolute, Body fluid 0 uL LAB HEMATOLOGY METHOD 01/15/2025 7:53 PM EDT [facility] Monocytes/Macro phages Absolute, Body fluid 5,250 uL LAB HEMATOLOGY METHOD 01/15/2025 7:53 PM EDT [facility] Eosinophils Absolute, Body fluid 0 uL LAB HEMATOLOGY METHOD 01/15/2025 7:53 PM EDT [facility] Basophils Absolute, Body fluid 0 uL LAB HEMATOLOGY METHOD 01/15/2025 7:53 PM EDT [facility] Lining/Mesothel ial Cells Absolute, Body fluid 0 uL LAB HEMATOLOGY METHOD 01/15/2025 7:53 PM EDT [facility] Comment, Body fluid None LAB HEMATOLOGY METHOD 01/15/2025 7:53 PM EDT [facility] Comment:This is an appended report. These results have been appended to a previously preliminary verified report. Basophils %, Body fluid 0 % LAB HEMATOLOGY METHOD 01/15/2025 7:53 PM EDT [facility] Joint Fluid 01/15/2025 12:1 0 PM EDT 01/15/2025 2:41 PM EDT Sara Alegre LAB BODY FLUIDS AND STOOLS ORDERABLES NO SPECIMEN TYPE/SOURCE Final Result [facility] [address] [place] [address] documented in this encounter Visit Diagnoses Diagnosis [...] documented as of this encounter Care Teams Power Grader Operator Relationship Specialty Start Date End Date Kai Shea MD [address] [place] [address] PCP - General 03/13/21 Jessica Perales DO [address] [place] [address] Resident Neurology 06/16/21 documented as of this encounter
--- OUTSIDE RECORDS SUMMARY | 2025-05-03 15:50 | XMS_ITS | Encounter Summary ---
Author Organization [facility] Address [address] [place] [address] Care Team Providers Care Safety Instruction Police Officer Name Role Phone Kai Shea MD Primary Care Provider [phone]- [phone] Jsesica Perales DO Unavailable Encounter Details Date Type Department Care Team (Late st Contact Info) Description 09/17/2021 Lab Requisition [facility] [address] [place] [address] Mar Diaz MD [address] [facility] [address] [place] [phone] Decreased white blood cell count, unspecified Social [...] EST Appointment [facility] [address] [place] [address] documented as of this encounter Procedures Procedure Name Priority Date/Time Associated Diagnosis Comments BONE MARROW EXAM CONSULT Routine 09/17/2021 9:40 AM EST Decreased white blood cell count, unspecified documented in this encounter Results * Bone Marrow Consult (09/17/2021 9:40 AM EST) Case Report Bone Marrow Case: [id number] Authorizing Provider: Mar Diaz MD Collected: 09/17/2021939 Ordering Location: [facility] Received: 09/17/2021 0940 Pathologist: Jen Tesfaye MD Specimen: Bone Marrow Biopsy, [id number] 09/21/2021 1:36 PM EST [facility] Final Diagnosis PERIPHERAL BLOOD AND BONE MARROW, POSTERIOR ILIAC CREST (PERIPHERAL SMEAR, ASPIRATE SMEAR, AND CORE BIOPSY): - KAPPA RESECTED PLASMA CELL NEOPLASM, REPRESENTING APPROXIMATELY 20% OF HYPERCELLULAR BONE MARROW SEE COMMENT 09/21/2021 1:36 PM EST [facility] at 1336 EST Comment The differential diagnosis includes smoldering myeloma and a plasma cell myeloma. Correlation with complete radiologic and laboratory studies is required for final diagnosis. 09/21/2021 1:36 PM EST [facility] Clinical Information D72.819 - Decreased white blood cell count, unspecified [ICD-10-CM] 09/21/2021 1:36 PM EST [facility] CBC and Differential PERIPHERAL BLOOD: No results found for requested labs within last 200 hours. DIFFERENTIAL:No results found for requested labs within last 200 hours. Leukopenia with mild lymphopenia and mild neutropenia.Macro cytic, normocytic red blood cells without anemia. Adequate platelets.no circulating plasma cells. 09/21/2021 1:36 PM EST [facility] Bone Marrow Differential BONE MARROW DIFFERENTIAL: 200 cells Normal Patient Neutrophils 15-50 12 Metamyelocytes 4-19 19 Myelocytes 1-18 23 Promyelocytes 1-8 0 Blasts 0-2 0 Monocytes 0-5 1 Erythroid 16-38 26 Lymphocytes 3-24 5 Eosinophils 0-6 7 Basophils 0-2 1 Plasma cells 0-4 6 Other 09/21/2021 1:36 PM EST [facility] Bone Marrow Aspirate and Biopsy The bone marrow aspirate smears show several cellular marrow particles with maturing trilineage hematopoiesis. Myeloid precursors are maturing . Blasts are not increased. 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 Plasma cells are increased and account for [...] Gain of 11q/CCND1 09/21/2021 1:36 PM EST [facility] Gross Description A. [id number] Received along with a corresponding pathology report from [facility] are 19 slide(s) labeled outside case: [id number] collected on 01/08/2021. 09/21/2021 1:36 PM EST [facility] Note: A resident was involved in the service. I attest I examined the relevant preparations for the specimens and confirmed the diagnosis or interpretation. 09/21/2021 1:36 PM EST [facility] Bone Marrow Specimen from bone marrow obtained by biopsy / Unknown 09/17/2021 9:40 AM EST 09/17/2021 9:40 AM EST us Mar Diaz MD LAB PATHOLOGY ORDERABLES Rosa godinez Result [facility] [address] [place] [address] documented in this encounter Visit Diagnoses Diagnosis Decreased white blood cell count, unspecified documented in this encounter Additional Health Concerns Assessment Noted Time A fall risk assessment has been complete d for the patient 2021 1:47 PM EDT documented as of this encounter Care Teams Safety Instruction Police Officer Relationship Specialty Start Date End Date Kai Shea MD [address] [place] [address] PCP - General 03/13/21 Jessica Perales DO [address] [facility] [address] [place] [id number] Resident Neurology 06/16/21 documented as of this encounter
[2025-05-03 15:51] VITALS: BP 115/76; PULSE 85; RESP 22; TEMP 36.6; O2SAT 96; BMI 28.7
--- NOTE | 2025-05-03 15:54 | HMH.EDGENADL ---
Discharge Plan Disposition Patient Disposition: Home, Self-Care Prescriptions Prescriptions: No Action tamsulosin 0.4 mg capsule 0.4 mg PO DAILY Xarelto 20 mg tablet 20 mg PO QPMWITHMEAL Qty: 30 5RF furosemide 20 mg tablet See Rx Instructions PO DAILY Rx Instructions: 20mg every other day alternating with 40mg every other day orally daily; tramadol 50 mg tablet 50 mg PO BID PRN Patient Comments: TAKE ONE TABLET BY MOUTH TWICE DAILY NEEDED FOR PAIN MAY CAUSE DROWSINESS losartan 25 mg tablet 25 mg PO BID amitriptyline 25 mg tablet 25 mg PO HS Rx Instructions: 2x25mg acyclovir 800 mg tablet See Rx Instructions .ROUTE .COMPLEX Dose Instruction: TAKE ONE TABLET BY MOUTH TWICE DAILY Rx Instructions: TAKE ONE TABLET BY MOUTH TWICE DAILY atorvastatin 40 mg tablet 40 mg PO HS omeprazole 40 mg capsule,delayed release(DR/EC) 40 mg PO DAILY levothyroxine 75 mcg tablet 75 mcg PO DAILYDM Jardiance 10 mg tablet 10 mg PO DAILY Qty: 30 2RF digoxin 125 mcg (0.125 mg) tablet 125 mcg PO DAILY Qty: 30 2RF potassium chloride 20 mEq tablet,ER particles/crystals 20 meq PO DAILY Qty: 30 3RF Rx Instructions: take one tablet daily bisoprolol fumarate 5 MG tablet 5 mg PO DAILY aspirin 81 mg Tablet,Chewable 81 mg PO DAILY hydrocodone-acetaminophen 5-325 mg tablet 1 tab PO Q6H PRN (Reason: post op pain) Qty: 30 0RF Referrals Follow up/Referrals: Kai Shea MD [Primary Care Provider, Medical] - See instructions Activity Restrictions/Add. Instructions Additional Instructions/Restrictions: Follow-up with your life cycle assessment analyst on Tuesday as scheduled. You can keep the wound covered with gauze or the Tegaderm until the appointment. Avoid any trauma to the area or excessive movements or exertion. If patient's wound starts to bleed again, hold pressure on it for at least 10 to 15 minutes without removing the gauze. If bleeding continues after this, return to the emergency department for evaluation. Continue to take your medications as prescribed and drink water when thirsty. Avoid excessive time out in the hot sun as this can dehydrate you more. If you develop any new or worsening symptoms, or if you become concerned for your health for any reason, return to the emergency department for evaluation. Clinical Impressions Clinical Impression: Bleeding from surgical wound, Fatigue Print Language Print Language: Citizen Of [place] Discharge ED Provider: Carlos Mccormick General Adult HPI General Chief complaint: Recheck/Abnormal Lab/Rx Stated complaint: Bleeding where pacemaker was put in Time Seen by Provider: 05/03/25 15:42 Mode of Arrival: Wheelchair Source of Information: Patient and Relative Description of Symptoms (Recalled from ER Triage Doc. by RN): bleeding from pacemaker site. pt feels increasingly weak, was raking hay when the bleeding started History of Present Illness HPI narrative: Kaleb Swan is a 74y male with a past medical history of heart failure with reduced ejection fraction status post pacemaker/defibrillator, A-fib, on aspirin and Xarelto, type 2 diabetes, coronary artery disease who presents to the emergency department for complaints of bleeding around his pacemaker site. Patient notes that over the last 2 days, he has been working outside and had just finished raking field on his tractor and noticed blood on his shirt and on his chest. He stated that his pacemaker site was bleeding. He notes that agusto are currently in place. Patient's bleeding had subsided by the time he arrived to the hospital. Family is with him and reports that he he has had medication changes recently after his appointment on the second with cardiology. States that he they doubled his bisoprolol and brought him down to once daily losartan instead of twice daily. He was also switched from 20 mg Lasix in the morning to 40 mg Lasix at night to 40 mg Lasix daily. Tractor today due to weakness but denies any chest pain, shortness of breath family is concerned because he seems to be increasingly fatigued over the last 2 days. She states that he had trouble getting off of his beyond his baseline, abdominal pain. Patient states that he has been drinking water but is not sure if he is keeping up with as much as he is peeing out. Related Data Home Medications ?Medication ?Instructions ?Recorded ?Confirmed atorvastatin 40 mg tablet 40 mg PO HS 12/20/17 05/01/25 tamsulosin 0.4 mg capsule 0.4 mg PO DAILY 07/03/19 05/01/25 bisoprolol fumarate 5 mg tablet 5 mg PO DAILY 01/08/21 05/01/25 omeprazole 40 mg capsule,delayed 40 mg PO DAILY 02/16/21 05/01/25 release levothyroxine 75 mcg tablet 75 mcg PO DAILYDM 12/16/22 05/01/25 aspirin 81 mg chewable tablet 81 mg PO DAILY 03/16/24 05/01/25 furosemide 20 mg tablet See Rx Instructions PO DAILY 04/05/25 05/01/25 acyclovir 800 mg tablet See Rx Instructions .Route .COMPLEX 05/01/25 amitriptyline 25 mg tablet 25 mg PO HS 05/01/25 05/01/25 losartan 25 mg tablet 25 mg PO BID 05/01/25 05/01/25 tramadol 50 mg tablet 50 mg PO BID PRN 05/01/25 05/01/25 Previous Rx's ?Medication ?Instructions ?Recorded hydrocodone 5 mg-acetaminophen 325 1 tab PO Q6H PRN post op pain #30 01/23/25 mg tablet tabs potassium chloride 20 mEq 20 meq PO DAILY Supplement #30 tabs 02/19/25 tablet,extended release(part/cryst) digoxin 125 mcg (0.125 mg) tablet 125 mcg PO DAILY #30 tabs 03/27/25 empagliflozin 10 mg tablet 10 mg PO DAILY #30 tabs 03/27/25 (Jardiance) rivaroxaban 20 mg tablet (Xarelto) 20 mg PO QPMWITHMEAL #30 tabs 04/09/25 Allergies Allergy/AdvReac Type Severity Reaction Status Date / Time No Known Allergies Allergy Verified 05/01/25 09:37 [facility] Disclaimer: The information contained in this section may have been updated after the patient was seen, as this information can be updated by other users. Medical History Other forms of dyspnea Respiratory failure with hypoxia Presence of combination internal cardiac defibrillator (ICD) and pacemaker Cataract GERD (gastroesophageal reflux disease) Hypothyroid Multiple myeloma Abnormal ankle brachial index (SARAY) Parkinson disease DM2 (diabetes mellitus, type 2) Chest pain CAD (coronary artery disease) Cardiomyopathy Bilateral leg pain PAD (peripheral artery disease) MIO (obstructive sleep apnea) Hyperlipidemia Hypertensive heart disease without heart failure Neuropathy Surgical History History of cataract surgery Hx of cholecystectomy AICD (automatic cardioverter/defibrillator) present History of colonoscopy History of heart bypass surgery Family History Other Family history of diabetes mellitus Social History Smoking Status: Never smoker alcohol intake: never substance use type: denies use current occupational status: employed Travel in the last 8 weeks?: None household members: spouse housing: house 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: Yes Have you lived/traveled outside US in past 30 days?: No Contact w/someone who lives/traveled outside US past 30 days?: No Exposure to someone with infectious disease in past 14 days?: No Do you have a fever (greater than 100.4 F or 38 C)?: No Have you tested positive for COVID-19?: No Exposed to someone with COVID-19 in past 14 days?: No Do you have a sore throat?: No Do you have a cough?: No Do you have any weakness?: No Do you have any diarrhea?: No Are you experiencing any unusual bleeding?: No Do you have any muscle aches/pain?: No Do you have any abdominal pain?: No Are you experiencing loss of taste or smell?: No Other Medical History Have you received the Flu Vaccine for this season: No Have you received the Pneumonia Vaccine: No ROS Obtained: Yes Systems reviewed as appropriate & no additional complaints except as documented Physical Exam General General appearance: alert and in no apparent distress Head Head exam: atraumatic Eye Eye exam: Present normal appearance ENT ENT exam: Present normal external ear exam Neck Neck exam: Present full ROM Chest Chest inspection: Present symmetric chest wall rise and other (Pacemaker in place to left anterior chest wall. Surrounding bruising in multiple stages of healing. Multiple agusto in place. No active bleeding. Dried blood to abdomen, short and left axilla) Respiratory Respiratory exam: Present normal lung sounds bilaterally; Absent respiratory distress, wheezes or stridor Cardiovascular Cardiovascular exam: Present regular rate and normal rhythm Abdominal Exam Abdominal exam: Present soft; Absent tenderness or guarding exam: Present deferred Extremities Exam Extremities exam: Present normal inspection Back Exam Back exam: Present normal inspection Neurological Exam Neurological exam: Present alert and oriented X3 Psychiatric Psychiatric exam: Present normal affect Skin Skin exam: Present warm and dry Medical Decision Making Medical Records Screening: Per USPSTF and CDC recommendations, given the prevalence of disease in our region, it is our hospital?s policy to screen for HIV and viral Hepatitis for all patients aged 18 and over and those with ongoing risk factors. Ruddy Inquiry Pt receiving controlled substance: No Vital Signs: 05/03/25 15:51 05/03/25 16:00 05/03/25 16:54 Temperature 97.9 F 98 F Temperature Source Oral Pulse Rate 89 85 Pulse Rate [Right] 85 Respiratory Rate 22 18 Blood Pressure 107/58 L 107/58 L Blood Pressure [Right Arm] 115/76 Blood Pressure Mean [Right Arm] 89 02 Sat by Pulse Oximetry 96 95 Oxygen Delivery Method Room Air Room Air Lab Data Lab Results 05/03/25 16:05: WBC 6.5, RBC 3.81 L, Hgb 11.9 L, Hct 36.6 L, MCV 96.1 H, MCH 31.2, MCHC 32.5, RDW 14.4, Plt Count 137 L, MPV 9.3, Neut % (Auto) 83.8 H, Lymph % (Auto) 6.7 L, [place] % (Auto) 8.5, Eos % (Auto) 0.5, Baso % (Auto) 0.3, Neut # (Auto) 5.4, Lymph # (Auto) 0.4 L, [place] # (Auto) 0.6, Eos # (Auto) 0.0, Baso # (Auto) 0.0, Total Counted 100, Neutrophils % (Manual) 82 H, Lymphocytes % (Manual) 8 L, Monocytes % (Manual) 8, Eosinophils % (Manual) 1, Basophils % (Manual) 1.0, Platelet Estimate Normal, Polychromasia 1+, Poikilocytosis 1+, Basophilic Stippling 1+, Anisocytosis 1+, Microcytosis 1+, Macrocytosis 1+, Tear Drop Cells 1+, Ovalocytes 1+, PT 18.1 H, INR 1.70 H, APTT 28.4, Sodium 137, Potassium 3.9, Chloride 96 L, Carbon Dioxide 29, Anion Gap 15.9 H, BUN 27 H, Creatinine 1.10, Estimated Creat Clear 76, Estimated GFR 65, Est GFR ( Amer) 79, Glucose 186 H, Calcium 9.3 05/03/25 16:05 05/03/25 16:05 Orders (Tests/Meds): ORDERS Category Date Time Status BMP [Basic Metabolic Panel] Stat Lab 05/03/25 16:05 Completed CBC [Complete Blood Count Auto Diff] Stat Lab 05/03/25 16:05 Completed PT/INR [Prothrombin Time INR] Stat Lab 05/03/25 16:05 Completed PTT [Activated Partial Thrombo Time] Stat Lab 05/03/25 16:05 Completed Medical Decision Narrative: Kaleb Swan is a 74y male with a past medical history of heart failure with reduced ejection fraction status post pacemaker/defibrillator, A-fib, on aspirin and Xarelto, type 2 diabetes, coronary artery disease who presents to the emergency department for complaints of bleeding around his pacemaker site. Patient notes that over the last 2 days, he has been working outside and had just finished raking field on his tractor and noticed blood on his shirt and on his chest. He stated that his pacemaker site was bleeding. He notes that agusto are currently in place. Patient's bleeding had subsided by the time he arrived to the hospital. Family is with him and reports that he he has had medication changes recently after his appointment on the second with cardiology. States that he they doubled his bisoprolol and brought him down to once daily losartan instead of twice daily. He was also switched from 20 mg Lasix in the morning to 40 mg Lasix at night to 40 mg Lasix daily. Tractor today due to weakness but denies any chest pain, shortness of breath family is concerned because he seems to be increasingly fatigued over the last 2 days. She states that he had trouble getting off of his beyond his baseline, abdominal pain. Patient states that he has been drinking water but is not sure if he is keeping up with as much as he is peeing out. On arrival, patient is normotensive, heart rate within normal limits at 85 bpm, breathing comfortably on room air with oxygen saturation 96% SpO2. Afebrile. Physical exam, stated above, revealed an overall well-appearing male in no distress. He has bruising in multiple stages of healing to his anterior chest wall with pacemaker to left anterior chest wall. Agutso are in place. No active bleeding from the surgical site. There is dried blood on his abdomen, axilla and shirt. He is alert and oriented and answering questions appropriately. Abdomen is soft, nontender nondistended. Cardiopulmonary exam is unremarkable. Differential diagnosis includes, but is not limited to: Surgical site bleeding, coagulopathy, anemia, electrolyte derangement, metabolic derangement, GEE, among others. The most morbid conditions were considered and workup was based on these. Workup in the emergency department included: CBC, BMP, PT/INR, APTT. Chest x-ray and EKG were considered, however patient does not have any active bleeding, no significant swelling or tenderness to the area. Patient not having any chest pain or evidence of volume overload or shortness of breath. Given this, is felt that these are not indicated at this time. Laboratory workup demonstrated: Mild anemia but not significantly changed from baseline. INR 1.7, however within acceptable range. No significant electrolyte derangements or GEE. Grossly unremarkable laboratory studies. Throughout patient's emergency department visit, he remained stable with no recurrence of his bleeding. Laboratory studies unremarkable for any acute pathology. Given this, is felt that he is appropriate for discharge at this time. He notes that he has follow-up with cardiology in clinic on Tuesday. Is felt that his fatigue could be secondary to being out in the hot sun for multiple hours over the past 2 days with inadequate oral intake and he likely got dehydrated given he is on Lasix as well. He was encouraged to drink plenty of fluids and to drink when thirsty. It Is felt that he is appropriate for discharge at this time with plan to follow-up with them as scheduled. Return precautions were given. Family was instructed to put pressure on the wound if it were to bleed again and that if bleeding was prolonged, to return to the emergency department. Critical Care Critical Care Time Critical Care Time: No
[2025-05-03 16:00] VITALS: BP 107/58; PULSE 89; O2SAT 95
[2025-05-03 16:12] LABS: Hematocrit 36.6 % (42.0-52.0); Hemoglobin 11.9 g/dL (14.1-18.0); Immature Granulocytes % 0.2 %; Mean Corpuscular HGB Conc 32.5 g/dL (31.8-35.4); Mean Corpuscular Hemoglobin 31.2 pg (27.0-31.2); Mean Corpuscular Volume 96.1 fl (80-94); Nucleated Red Blood Cells % 0 %; Platelet Count 137 K/mm3 (142-424); Red Blood Count 3.81 M/mm3 (4.60-6.20); Red Cell Distribution Width-SD 50.2 fL; White Blood Count 6.5 K/mm3 (4.8-10.8)
[2025-05-03 16:19] LABS: Chloride 96 mmol/L (98-107); Potassium 3.9 mmoL/L (3.5-5.1); Sodium 137 mmol/L (136-145)
[2025-05-03 16:21] LABS: Blood Urea Nitrogen 27 mg/dl (9-20); Creatinine Clearance Estimated 76 mL/min (50-200); Creatinine,Serum 1.10 mg/dl (0.66-1.25); Estimated Glomerular Filt Rate 65 ml/min (>60); GFR (African American) 79 ML/MIN (>60)
[2025-05-03 16:22] LABS: Anion Gap 15.9 mEq/L (5-15); Calcium 9.3 mg/dl (8.4-10.2); Carbon Dioxide 29 mmol/L (22.0-30.0); Glucose 186 mg/dl (74-100)
[2025-05-03 16:23] LABS: Activated Partial Thrombo Time 28.4 seconds (22.8-30.6); INR 1.70 (0.9-1.1); Prothrombin Time 18.1 seconds (10.1-12.5)
[2025-05-03 16:52] LABS: Anisocytosis 1+; Macrocytosis 1+; Total Cells Counted 100
[2025-05-03 16:53] LABS: Ovalocytes 1+; Poikilocytosis 1+; Polychromasia 1+; Tear Drop Cells 1+
[2025-05-03 16:54] VITALS: BP 107/58; PULSE 85; RESP 18; TEMP 36.6; O2SAT 95
[2025-05-03 16:54] LABS: Basophilic Stippling 1+; Microcytosis 1+
== END 2025-05-03 17:06 | disposition home or self-care (01) ==
PROVIDERS: Emergency Provider Student in an Organized Health Care Education/Training Program; PCP Family Medicine
DX: L76.22 Postprocedural hemorrhage of skin and subcutaneous tissue following other procedure (principal); R53.83 Other fatigue; Z95.0 Presence of cardiac pacemaker
CPT/HCPCS: 80048; 85007; 85025; 85027; 85610; 85730; 99283

== ENCOUNTER 2025-05-07 08:34 | Outpatient (CLI) | payer MEDICARE, BC, SELFPAY ==
--- OUTSIDE RECORDS SUMMARY | 2025-03-26 07:30 | XMS_ITS ---
Author Organization [facility] Address [address] [id number] Care Team Providers Care Director Of Education Name Role Phone Nas Shea Primary Care Provider [phone] Jessie Velez Unavailable [phone] Allergies No Known Allergies REASON FOR VISIT [...] Encounters Encounter Location Date Provider Diagnosis [facility] [address] [place] [address] [address] [place], [place] [id number] 03/26/2025 Jessie Velez Hypotension I95.9 ; Edema [...] Dr. Shea 04/18/2025, Reason: Provider Name:Nas Solis, 07/02/2025 09:15:00 AM, [address] [facility] 36 [facility], [address], [place], [place], [id number], Progress Notes * ANGIE SWANOB: 0 (74 yo M)Acc No.[id number]:03/26/2025 Progress Notes Patient: Henry SHIRAJAGRUTI MORALESENCE Provider: GABRIELLE Sanders :1950 A ge:74 Y S ex:Male Date:03/26/2025 Address:[address] [place] [address] LUIZ KAMINSKI , [facility]-[id number] Pcp:Nas Shea Subjective: * Chief Complaints: * [...] diuretics adjusted. He has not seen a race relations adviser. During walking test today in clinic his [...] Open Heart Surgery-Dr Mott @ [facility] 12/2015, thoracentesis 12/2015, Laparoscopic cholecystectomy - Dr. Wallace 09/06/16, cardiac defibirilltor placed-Dr Yates 07/04/2020, cataract surgery-right eye 12/2020, Knee Surgery - Due to Infection -01/2025. * Hospitalization/Major Diagno stic Procedure: H ER-suture to pinky finger of left hand 09/25/09, C-scope - Dr. Kimball 09/2013, [facility] ER-Afib 01/2016, [facility] pancreatitis 09/02/16, Left heart cath/[place]/ normal flow of revascularized vessels 02/2017, [facility]-tachycardia 07/02 to 07/03/2020, [facility] UTC - Fall 11/14/2023. * [...] AD , alert , pleasant; presents with director career services in a wheelchair. H eart: R RR. [...] * Images: Billing Information: * Visit Code: 61743 Office Visit, Est Pt., Level 3. * Procedure Codes: G2211 Complex e/m visit add on. G8420 BMI<30 AND >=22 CALC & DOCU. G8950 PREHTN/HTN BP DOC INDCD F/U DOC. G8752 MOST RECENT SYSTOLIC BP < 140MM HG. G8754 MOST RECENT DIASTOLIC BP < 90MM HG. * Electronic signature of Dahlia Velez APRN on 05/07/2025 at 08:37 AM EDT Sign off status: Pending * Provider: GABRIELLE Sanders Date: 0 03/26/2025 Generated for Galilea lozano/Ken/Stevenitting on: 0 05/07/2025 08:37 AM EDT History and Physical Notes * HPI [...] , alert , pleasa nt; presents with director career services in a wheelchair Neurologic Exam: alert and oriented
--- OUTSIDE RECORDS SUMMARY | 2025-04-18 05:00 | XMS_ITS ---
Author Organization [facility] Address [address] [place] [address] 36 [facility] [address] [place] [id number] Care Team Providers Care Control Clerk Name Role Phone Nas Shea Primary Care Provider REASON FOR VISIT 6 months Encounters Encounter Location Date Provider Diagnosis [facility] 1210 [facility] 36 [facility] [address] [place] [id number] 04/18/2025 Nas Shea Plan Of Treatment Next Appt Details Provider Name:Nas Solis, 07/02/2025 09:15:00 AM, [address] [facility] 36 [facility], [address], [place], [place], [phone], Progress Notes * ANGIE SWANOB: 0 (74 yo M)Acc No.[id number]:04/18/2025 Progress Notes Patient: Henry KEV CHEUNG Provider: Nas Shea M.D. :1950 A ge:74 Y S ex:Male Date:04/18/2025 Address:[address] [place] [address] TODD KAMINSKI , [place], [id number] Subjective: * Chief Complaints: * 1 . 6 months. * Medical History: Objective: * Vitals: Assessment: Plan: * Treatment: * Images: Billing Information: * Visit Code: * Procedure Codes: * Electronic signature of Nas Shea MD on 05/07/2025 at 08:38 AM EDT Sign off status: Pending * Provider: Nas Shea M.D. Date: 0 04/18/2025 Generated for Galilea lozano/Ken/Lynn on: 0 05/07/2025 08:38 AM EDT
--- OUTSIDE RECORDS SUMMARY | 2025-04-25 07:30 | XMS_ITS ---
Author Organization [facility] Address [address] [phone] Care Team Providers Care Interactive Media Designer Name Role Phone Nas Shea Primary Care Provider [phone] Allergies No Known Allergies REASON FOR VISIT [...] Provider Diagnosis [facility] [address] [facility] [address] [place], [place] [id number] 04/25/2025 R Jesus Monse Pacemaker Z95.0 ; [...] Name:Nas [place], 07/02/2025 09:15:00 AM, [address] [facility] [address] [facility], [address] , [place], [place], [phone], Progress Notes * ANGIE SWANOB: 0 (74 yo M)Acc No.[id number]:04/25/2025 Progress Notes Patient: KEV LUZ Provider: Nas Shea M.D. :1950 A ge:74 Y S ex:Male Date:04/25/2025 Address:[address] [place] [address] YAMILEX , [facility]-[id number] Subjective: * Chief Complaints: * 1 . Skin Tear on Left Arm Possibly Infected. * HPI: C ardiology: He had a permanent pacemaker placed yesterday by Dr. Yates. Xarelto is currently on hold. His Lasix dose was increased. He tells me the chemistry manager would like for him to wean off [...] stents 03/08/2007, Open Heart Surgery-Dr Mott @ [facility] 12/2015, thoracentesis 12/2015, Laparoscopic cholecystectomy - Dr. Wallace 09/06/2016, cardiac defibirilltor placed-Dr Yates 07/04/2020, cataract surgery-right eye 12/2020, Knee Surgery - Due to Infection -01/2025, Cardiac Pacemaker 04/24/2025. * Hospitalization/Major Diagno stic Procedure: H ER-suture to pinky finger of left hand 09/25/2009, C-scope - Dr. Kimball 09/2013, [facility] ER-Afib 01/2016, [facility] pancreatitis 09/02/2016, Left heart cath/[place]/ normal flow of revascularized vessels 02/2017, [facility]-tachycardia 07/02-12/2019, [facility] UTC - Fall 11/14/2023. [...] ultiple myeloma - C90.00 9 . B MS 25.0-25.9,adult - Z68.25 ? Plan: * Treatment: [...] * Images: Billing Information: * Visit Code: 15344 Office Visit, Est Pt., Level 4. * [...] 04/25/2025 Generated for Galilea lozano/Ken/Lynn on: 0 05/07/2025 08:38 AM EDT History and Physical Notes * [...] sterile dressing. Cardiology He tells me the chemistry manager would like for him to wean off [...]
--- OUTSIDE RECORDS SUMMARY | 2025-05-07 08:38 | XMS_ITS | Encounter Summary ---
Author Organization [place] [address] Care Team Providers Care Electrical Maintenance Technician Name Role Phone Unavailable Primary Care Provider Unavailabl e Encounter Details Date Type Department Care Team (Late st Contact Info) Description 01/07/2023 [facility] Only [facility] [place] [place] [id number] Barbara Bess MD [address] [place] [id number] Social History Tobacco Use Types Packs/Day Years [...] Narrative [facility] - 01/24/2023 5:22 PM EDT Requesting Provider: GIOVANNA Chaney Specimen = [id number] us Barbara Bess MD PATHOLOGY ORDERABLES Final Resul t [facility] [address] [place] [address] documented in this encounter Visit Diagnoses Not on filedocumented in this encounter
--- OUTSIDE RECORDS SUMMARY | 2025-05-07 08:38 | XMS_ITS | Encounter Summary ---
Author Organization Healthcare Address [address] [place] [address] Care Team Providers Care Warehouse Supervisor Name Role Phone Kai Shea MD Primary Care Provider [phone] Jessica Perales DO Unavailable [phone] Encounter Details Date Type Department Care Team (Late st Contact Info) Description 12/31/2024 Lab Requisition [facility] [address] [place] [address] Valdo Carrillo, CARLOS [address] [place] [address] Encounter for general adult medical examination without [...] place to sleep or slept in a longterm (including now)? No 05/04/2024 PHQ-9 Answer Date [...] drink first t vane in the morning (EYE-PROGRAMMER ENGINEERING AND SCIENTIFIC) to steady your nerves or to get [...] Appointment [facility] [address] [place] [address] documented as of this encounter Procedures Procedure [...] Result [facility] [address] [place] [address] * (ABNORMAL) Body Fluid Cell Count w/ [...] % LAB HEMATOLOGY METHOD 12/31/2024 8:[address] [facility] Monocytes/Macro phages %, Body fluid 4 % LAB HEMATOLOGY METHOD 12/31/2024 8:[address] [facility] Eosinophils %, Body fluid 0 % LAB HEMATOLOGY METHOD 12/31/2024 8:[address] [facility] Lining/Mesothel ial Cells %, Body fluid 0 % LAB HEMATOLOGY METHOD 12/31/2024 8:00 PM EST [facility] Neutrophils Absolute (PMN), Body fluid 41,800 uL LAB HEMATOLOGY METHOD 12/31/2024 8:[address] [facility] Lymphocytes Absolute, Body fluid 440 uL LAB HEMATOLOGY METHOD 12/31/2024 8:[address] [facility] Monocytes/Macro phages Absolute, Body fluid 1,760 uL LAB HEMATOLOGY METHOD 12/31/2024 8:[address] [facility] Eosinophils Absolute, Body fluid [...] SPECIMEN TYPE/SOURCE Final Result Performing Organization Address [facility] Co de Phone Number [facility] [address] [place] [address] * (ABNORMAL) Synovial fluid, crystal (12/31/2024 3:15 [...] to 2 months of steroid injection. us Vadlo GONZALE[facility] LAB BODY FLUIDS AND STOOLS ORDERABLES Final Result Performing Organization Address [facility] Co de Phone Number [facility] [address] [place] [address] documented in this encounter Visit Diagnoses Diagnosis [...] documented as of this encounter Care Teams Warehouse Supervisor Relationship Specialty Start Date End Date Kai Shea MD [address] [place] [address] PCP - General 03/13/21 Jessica Perales DO [address] [place] [address] Resident Neurology 06/16/21 documented as of this encounter
--- OUTSIDE RECORDS SUMMARY | 2025-05-07 08:38 | XMS_ITS | Encounter Summary ---
Author Organization Healthcare Address [address] [place] [address] Care Team Providers Care Clam Bed Worker Name Role Phone Kai Shea MD Primary Care Provider [phone] Jessica Perales DO Unavailable [phone] Encounter Details Date Type Department Care Team (Late st Contact Info) Description 11/05/2024 Orders Only [place] [facility] [address] [place] [address] Rome York, DO [address] [phone] Neuropathy Social History Tobacco Use Types Packs/Day [...] place to sleep or slept in a group home (including now)? No 05/04/2024 CAGE ASSESSMENT Answer [...] drink first t vane in the morning (EYE-STATE ARCHIVIST) to steady your nerves or to get [...] Appointment [facility] [address] [place] [address] documented as of this encounter Visit Diagnoses Diagnosis Neuropathy Mononeuritis of unspecified site documented in this encounter Additional Health Concerns Assessment Noted Time A fall risk assessment has been complete d for the patient 12/19/2023 3:03 PM EST A Body Mass Index follow-up plan has been documented for the patient 05/05/2024 11:32 AM EDT documented as of this encounter Care Teams Clam Bed Worker Relationship Specialty Start Date End Date Kai Shea MD [address] [place] [address] PCP - General 03/13/21 Jessica Perales DO [address] [place] [address] Resident Neurology 06/16/21 documented as of this encounter
--- OUTSIDE RECORDS SUMMARY | 2025-05-07 08:38 | XMS_ITS | Encounter Summary ---
Author Organization [place] [address] Care Team Providers Care Clerical Receptionist Name Role Phone Unavailable Primary Care Provider Unavailabl e Encounter Details Date Type Department Care Team (Late st Contact Info) Description 01/07/2023 [facility] [place] [phone] Barbara Bess MD [address] [place] [phone] Social History Tobacco Use Types Packs/Day Years [...] AM EST) 01/07/2023 9:45 AM EST Narrative [facility] - 01/17/2023 1:28 PM EDT Requesting Provider: GIOVANNA Chaney Specimen = [id number] us Barbara Bess MD PATHOLOGY ORDERABLES Final Resul t [facility] [address] [place] [address] documented in this encounter Visit Diagnoses Not on filedocumented in this encounter
--- OUTSIDE RECORDS SUMMARY | 2025-05-07 08:38 | XMS_ITS | Patient Health Record ---
Author Organization [facility] Address [address] [place] [phone] Care Team Providers Care Marine Service Manager Name Role Phone Nas Shea Primary Care Provider Jessie Velez Unavailable [phone] Allergies No Known Allergies Results Component Value Reference Range Notes P-TSH Reviewed date:02/07/2025 08:17:27 AM Interpretation: Performing Lab: Notes/Report: Test performed by [facility] [address] [place], [place] [address] [place] , [address], [place] [address] Renato Cobb MD, Batch And Furnace Operator CLIA: [id number] TSH 2.88 0.43-5.25 mU/L P-Hemoglobin A1C Reviewed date:02/07/2025 08:17:27 AM Interpretation: Performing Lab: Notes/Report: Test performed by [facility] [address] [place], [place] [address] [address] [place], [address], [place] [address] Renato Cobb MD, Batch And Furnace Operator CLIA: [id number] Hemoglobin A1C 6.9 <5.7 % The following HbA1c ranges recommended by the [place] [employer] (ADA) may be used as an aid in the diagnosis of diabetes mellitus. HbA1c Suggested Diagnosis >=6.5% Diabetic 5.7% - 6.4% Pre-Diabetic <5.7% Non-Diabetic Estimated Average Glucose Reviewed date:02/07/2025 08:17:27 AM Interpretation: Performing Lab: Notes/Report: Test performed by [facility] [address] [place], [place] [address] [address], [address], [place] [address] Renato Cobb MD, Batch And Furnace Operator CLIA: [id number] Estimated Average Glucose (eAG) 151 Estimated Average [...] Interpretation:Normal Performing Lab: Notes/Report: Test performed by [facility] [address] [place] [address] , [place] [address] Renato Cobb MD, Batch And Furnace Operator CLIA: [id number] TSH 2.38 0.43-5.25 mU/L P-PSA Reviewed date:10/20/2024 11:28:50 AM Interpretation:4.34 Performing Lab: Notes/Report: Test performed by [facility] [address] , [place] [address] Renato Cobb MD, Batch And Furnace Operator CLIA: [id number] PSA 4.34 <4.00 ng/mL Please note this is an ultrasensitive PSA assay with a lower limit of detection of 0.014 ng/mL. This test is performed by the Becki ECLIA methodology. Values obtained with different assay methods or kits cannot be directly compared. P-Lipid Panel Reviewed date:10/20/2024 11:28:49 AM Interpretation:Normal Performing Lab: Notes/Report: Test performed by [facility] [address] [place] [address] , [place] [address] Renato Cobb MD, Batch And Furnace Operator CLIA: [id number] Cholesterol 128 <200 mg/dL Triglycerides 147 <150 [...] 6.4 glycohemoglobin 6.4% 5 - 6.5 % H-CBC Reviewed date:01/02/2025 [...] W/U Status Risk Notes Problem Coronary arteriosclerosis (86600374) 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) Active confirmed Problem History of circulatory system disease (791228836) History of ASCVD (Z86.79) Active confirmed Problem Essential hypertension (35306151) Essential hypertension (I10) Active confirmed Problem Diabetes mellitus with neuropathy (968259285) Diabetes mellitus with neuropathy (E11.40) Active confirmed Problem Benign prostatic hyperplasia (358235496) BPH (benign prostatic hyperplasia) (N40.0) Active confirmed Problem Peripheral neuropathy (200046637) Peripheral neuropathy (G62.9) Active confirmed Problem Hearing loss (82268721) Hearing loss (H91.90) Active confirmed Problem Chronic tension-type headache (871621825) Chronic tension-type headache, not intractable (G44.229) Active confirmed Problem Chronic pain syndrome (507956608) Chronic pain syndrome (G89.4) Active confirmed Problem Chronic atrial fibrillation (623382137) Chronic atrial fibrillation (I48.2) Active confirmed Problem Hyperlipidemia due to type 2 diabetes mellitus (disorder) (130183766663720) Hyperlipidemia associated with type 2 diabetes mellitus (E11.69) Active confirmed Problem Diabetes mellitus (45172488) Diabetes mellitus (E11.9) Active confirmed Problem Gastroesophageal reflux disease (337017675) GERD without esophagitis (K21.9) Active confirmed Problem Unsteady gait (87858772) Unsteady gait (R26.81) Active confirmed Problem Gastroesophageal reflux disease without esophagitis (714105053) Gastroesophageal reflux disease without esophagitis (K21.9) Active confirmed Problem Acquired hypothyroidism (192091080) Acquired hypothyroidism (E03.9) Active confirmed Problem Cardiac pacemaker in situ (138565780) Pacemaker (Z95.0) Active confirmed Problem Lower urinary tract symptoms due to benign prostatic hypertrophy (10851993493440) Benign non-nodular prostatic hyperplasia with lower urinary tract symptoms (N40.1) Active confirmed Problem Displacement of lumbar intervertebral disc without myelopathy (62964708) Bulging lumbar disc (M51.26) Active confirmed Problem Cardiomyopathy (79911050) Cardiomyopathy (I42.9) Active confirmed Problem Multiple myeloma (379209217) Multiple myeloma (C90.00) Active confirmed Problem Dyslipidemia (887312101) Dyslipidemia (E78.5) Active confirmed Problem Skin ulcer (disorder) (99251385) Skin ulcer, limited to breakdown of skin (L98.491) Active confirmed Problem Restless legs (54628281) RLS (restless legs syndrome) (G25.81) Active confirmed Problem Peripheral circulatory disorder associated with diabetes mellitus (893433649) 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) Active confirmed Problem Lumbar spondylosis with myelopathy (99498279) Lumbar spondylosis with myelopathy (M47.16) Active confirmed Problem Significant coronary bypass graft disease (001566087) Coronary artery disease involving coronary bypass graft of [place] heart without angina pectoris (I25.810) Active confirmed Problem Chronic atrial fibrillation (851695726) Chronic atrial fibrillation (I48.20) Active confirmed Problem Automatic implantable cardiac defibrillator in situ (201034459) Cardiac defibrillator in place (Z95.810) Active confirmed Problem Monoclonal gammopathy of uncertain significance (disorder) (482065920) 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) Active confirmed Problem Pseudogout (612336258) Pseudogout (M11.20) Active confirmed Vital Signs Heart Rate 78 /min 04/25/2025 Blood pressure diastolic 64 mm Hg 04/25/2025 Height 72 in 04/25/2025 Blood pressure systolic 112 mm Hg 04/25/2025 Weight 187 lbs 04/25/2025 BMI 25.36 kg/m2 04/25/2025 Encounters Encounter Location Date Provider [facility] [id number] 10/18/2024 Nas Shea Type 2 diabetes mellitus [...] C90.00 and Screening for prostate cancer Z12.[address] [id number] 01/21/2025 Jessie Velez Septic arthritis of knee M00.9 and Abrasions of multiple sites T07.XXXA [address] [id number] 02/05/2025 Nas Shea 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.59 ; Staphylococcal arthritis of right knee M00.061 ; Acquired hypothyroidism E03.9 ; Multiple myeloma C90.00 ; Diabetes mellitus with neuropathy E11.40 ; Dyslipidemia E78.5 ; Essential hypertension I10 ; Cardiomyopathy I42.9 and BMI 25.0-25.9,adult Z68.25 [facility] [address] [facility] [address] [place], [place] [id number] 03/19/2025 Jessie Velez Edema leg R60.0 ; [...] hyperplasia) N40.0 and Chronic atrial fibrillation I48.20 [facility] [address] [facility] [address] [place] [id number] 03/26/2025 Jessie Velez Hypotension I95.9 ; Edema of both legs R60.0 and BMI 28.0-28.9,adult Z68.28 [facility] [address] [facility] [address] [id number] 04/25/2025 R Jesus Monse Pacemaker Z95.0 ; Sk in tear of forearm without complication S51.819A ; Cardiomyopathy I42.9 ; History of ASCVD Z86.79 ; BPH (benign prostatic hyperplasia) N40.0 ; Diabetes mellitus E11.9 ; Peripheral neuropathy G62.9 ; Multiple myeloma C90.00 and BMI 25.0-25.9,adult Z68.25 [facility] [address] [facility] [address] [place], [place] [id number] 10/19/2024 R Jesus Monse ASCVD (arteriosclero tic cardiovascular disease) I25.10 [facility] [address] [facility] [address] [place], [place] [id number] 10/20/2024 R Jesus Monse [facility] [address] [facility] [address] [place], [place] [id number] 01/03/2025 R Jesus Monse [facility] [address] [place] [id number] 02/07/2025 Nas Shea [facility] [address] [place] [id number] 03/19/2025 Nas Shea Assessments Encounter Date Diagnosis [...] arthritis of right knee (ICD-10 - M00.061) 03/19/2025 Hypotension (ICD-10 - I95.9) will continue to monitor BP; care with ambulation; continues to use walker with ambulation 03/19/2025 Edema leg (ICD-10 - R60.0) family notes that he has gained about 9# within the last week; after confering with [facility] GON[facility]ALE[facility] cardiology, pt will take 3 days of Lasix while monitoring BP and taking care with ambulation 03/26/2025 Hypotension (ICD-10 - I95.9) BP has been normal; no med changes; to keep cardiology FU appt 04/25/2025 Pacemaker (ICD-10 - Z95.0) 04/25/2025 Skin tear of forearm without complication (ICD-10 - S51.819A) Instructed on wound care. Allow wound to be open to air for gradually more time each day 04/25/2025 Cardiomyopathy (ICD-10 - I42.9) 03/26/2025 Edema of both legs (ICD-10 - R60.0) will continue to monitor; no med changes; to keep cardiology appt 03/19/2025 ASCVD (arteriosclerotic cardiovascular disease) (ICD-10 - I25.10) discussed with [facility] cardiology ; reviewed labs and ECHO 02/05/2025 Acquired hypothyroidism (ICD-10 - E03.9) 10/18/2024 Diabetes mellitus with neuropathy (ICD-10 - E11.40) 10/18/2024 Essential hypertension (ICD-10 - I10) 02/05/2025 Multiple myeloma (ICD-10 - C90.00) 03/26/2025 BMI 28.0-28.9,adult (ICD-10 - Z68.28) 04/25/2025 History of ASCVD (ICD-10 - Z86.79) 03/19/2025 Cardiomyopathy (ICD-10 - I42.9) reviewed recent ECHO 03/19/2025 MGUS (monoclonal gammopathy of unknown significance) (ICD-10 - D47.2) 04/25/2025 BPH (benign prostatic hyperplasia) (ICD-10 - N40.0) 02/05/2025 Diabetes mellitus with neuropathy (ICD-10 - E11.40) 10/18/2024 Acquired hypothyroidism (ICD-10 - E03.9) 10/18/2024 Dyslipidemia (ICD-10 - E78.5) 02/05/2025 Dyslipidemia (ICD-10 - E78.5) 03/19/2025 Multiple myeloma (ICD-10 - C90.00) follows with dr. Eason; currently on vacation [place] 04/25/2025 Diabetes mellitus (ICD-10 - E11.9) 04/25/2025 Peripheral neuropathy (ICD-10 - G62.9) Instructed to wean by one half tabs daily per month 03/19/2025 PVD (peripheral vascular disease) (ICD-10 - I73.9) 02/05/2025 Essential hypertension (ICD-10 - I10) 10/18/2024 ASCVD (arteriosclerotic cardiovascular disease) (ICD-10 - I25.10) 10/18/2024 Hearing loss (ICD-10 - H91.90) 02/05/2025 Cardiomyopathy (ICD-10 - I42.9) 03/19/2025 Chronic atrial fibrillation (ICD-10 - I48.2) 04/25/2025 Multiple myeloma (ICD-10 - C90.00) 04/25/2025 BMI 25.0-25.9,adult (ICD-10 - Z68.25) 03/19/2025 Type 2 diabetes mellitus with other circulatory complication (ICD-10 - E11.59) 02/05/2025 BMI 25.0-25.9,adult (ICD-10 - Z68.25) 10/18/2024 Diabetes mellitus (ICD-10 - E11.9) 10/18/2024 Peripheral neuropathy (ICD-10 - G62.9) 03/19/2025 [...] Name:Nas Solis, 07/02/2025 09:15:00 AM, [address], [place], [id number], Insurance Providers Payer Name Payer Address Payer Phone Subscriber Number Group Number Insured Name Patient Relationship to Insured Coverage Start Date Coverage End Date MEDICARE PART B [address] [address] [place] [address] [id number] KEV DIKC Self - patient is the insured [facility] [address] [place] [address] [id number] KEV DICK Self - patient is the [...] Surgery - Due to Infection -02/17 25 Cardiac Pacemaker 04/24/2025 Hospitalization History Reason Date(Month/Year) [facility] UTC - Fall 11/14/2023 [facility]-tachycardia 07/02-12/2019 Left heart cath/[place]/ normal flow of revascularized vessels 02/2017 [facility] pancreatitis 09/02/2016 [facility] ER-Afib 01/2016 C-scope - Dr. Kimball 09/2013 [facility] ER-suture to pinky finger of left [place] nd 09/25/2009
--- OUTSIDE RECORDS SUMMARY | 2025-05-07 08:38 | XMS_ITS | Encounter Summary ---
Author Organization Healthcare Address [address] [place] [address] Care Team Providers Care Physiologist Name Role Phone Kai Shea MD Primary Care Provider [phone] Jessica Perales DO Unavailable Encounter Details Date Type Department Care Team (Late st Contact Info) Description 12/31/2024 Lab Requisition [facility] [address] [place] [address] Valdo Carrillo, CARLOS [address] [place] [address] Encounter for general adult medical examination without [...] drink first t vane in the morning (EYE-INTERACTIVE MEDIA DIRECTOR) to steady your nerves or to [...] Appointment [facility] [address] [place] [address] documented as of this encounter Procedures Procedure Name Priority Date/Time Associated Diagnosis Comments BODY FLUID CULTURE AND GRAM STAIN Routine 12/31/2024 5:40 PM EST Encounter for general adult medical examination without abnormal findings documented in this encounter Results * (ABNORMAL) Body Fluid Culture and Gram Stain (12/31/2024 5:40 PM EST) Culture Light Growth 01/06/2025 10:47 AM EDT [facility] Culture Staphylococcus epidermidis(A) BASSAM 01/06/2025 10:47 AM EDT [facility] Comment: This isolate has been identified using the FDA Approved [employer] [place] System The organism value for this result has been updated. These results have been appended to the previously preliminary verified report. Edited result: Previously reported as Gram positive cocci on 01/02/2025 at 0908 EST. Gram Stain Result Numerous Polymorphonuclear leukocytes(A) 01/06/2025 10:47 AM EDT [facility] Gram Stain Result Rare Gram positive cocci in pairs(A) 01/06/2025 10:47 AM EDT [facility] Joint Fluid Synovial fluid specimen [...] LAB MICROBIOLOGY - GENERAL ORDERABLES Final Result [facility] [address] [place] [address] documented in this encounter Visit Diagnoses Diagnosis [...] documented as of this encounter Care Teams Physiologist Relationship Specialty Start Date End Date Kai Shea MD [address] [place] [address] PCP - General 03/13/21 Jessica Perales DO [address] [place] [address] Resident Neurology 06/16/21 documented as of this encounter
--- OUTSIDE RECORDS SUMMARY | 2025-05-07 08:38 | XMS_ITS | Encounter Summary ---
Author Organization Healthcare Address [address] [place] [address] Care Team Providers Care Chemist Pharmaceutical Name Role Phone Kai Shea MD Primary Care Provider [phone]- [phone] Jessica Perales DO Unavailable [phone] Encounter Details Date Type Department Care Team (Late st Contact Info) Description [facility]/22[facility] [place] [facility] [address] [place] [address] Monica Sue MD [address] [place] [address] Social History Tobacco Use Types [...] drink first t vane in the morning (EYE-TRACK SURFACING MACHINE OPERATOR) to steady your nerves or to get [...] Appointment [facility] [address] [place] [address] documented as of this encounter Visit Diagnoses [...] documented as of this encounter Care Teams Chemist Pharmaceutical Relationship Specialty Start Date End Date Kai Shea MD [address] [place] [address] PCP - General 03/13/21 Jessica Perales DO [address] [place] [address] Resident Neurology 06/16/21 documented as of this encounter
--- OUTSIDE RECORDS SUMMARY | 2025-05-07 08:38 | XMS_ITS | Clinical Summary ---
Author Organization [facility] Address [address] [place] [address] Care Team Providers Care Community Arts Officer Name Role Phone Kai Shea MD Primary Care Provider [phone]- [phone] Jessica Perales DO Unavailable [phone] Allergies No known active allergies Medications atorvastatin [...] Type Department Care Team Description [facility] [place] [facility] [place] [address] Monica Sue MD from Last 3 Months Immunizations Immunization Administration Dates Next Due [employer] COVID-19 Vaccine (Purple Cap) 12 + 01/16/2021,12/24/2020 [...] a group home (including now)? No 05/04/2024 PHQ-9 Answer Date [...] drink first t vane in the morning (EYE-PRACTICAL NURSE) to steady your nerves or to get [...] Appointment [facility] [address] [place] [address] Health Maintenance Due Date Last Done Comments [facility]-Medicare Annual Wellness (AWV) 1950 [facility]-Infant/Child/Adol SDOH Screenings 1950 [facility]-Zoster Vaccines (1 of 2) 1969 CT Colonography 1995 Colonoscopy 1995 FIT-DNA 1995 FIT 1995 FOBT 1995 Sigmoidoscopy 1995 [facility]-Colorectal Cancer Screening 1995 [facility]-RSV Vaccine: 60+ Years or (1 - Risk 60-74 years 1-dose series) 2010 [facility]-Pneumococcal Vaccine: 50+ Years (2 of 2 - PPSV23) 03/16/2019 01/19/2019 [id number] Vaccine ( season) 2024 10/08/2021, 01/16/2021, 12/24/2020 [...] Antibody Negative Negative 05/03/2024 5:39 PM EDT [facility] Blood Venous blood specimen / Unknown Venipuncture / Unknown 05/03/2024 4:48 PM EDT 05/03/2024 4:58 PM EDT us Rome Dominguez MD LAB BLOOD ORDERABLES Final Result Performing Organization Address City/State/[facility] Co de Phone Number HEALTHCARE LAB [address] [place] [address] from Last 3 Months or Most Recently Relevant to Health Maintenance Insurance [facility] [place] [address] Advance Directives Documents on File Type Date Recorded Patient Cardiovascular Technician Expl anation Advance Directives and Living Will 05/04/2024 2:43 PM patient does not hav e an AD * Full Code (Latest Code Status on File) Date Activated Date Inactivated Comments 05/03/2024 10:21 PM 05/05/2024 2:20 PM Question Answer Comments Patient has decision-making capacity? Yes Care Teams Community Arts Officer Relationship Specialty Start Date End Date Kai Shea MD [address] [place] [address] PCP - General 03/13/21 Jessica Perales DO [address] [place] [address] Resident Neurology 06/16/21
--- OUTSIDE RECORDS SUMMARY | 2025-05-07 08:38 | XMS_ITS | Clinical Summary ---
Author Organization [facility] Address [address] [facility] [address] [place] [address] Phone Care Team Providers Care Daycare Director Name Role Phone Unavailable Primary Care Provider [...] BONE 01/07/2023 CT NEEDLE BIOPSY BONE 01/07/[address] Social History Tobacco Use Types Packs/Day [...] age to complete this topic Insurance [facility] FEDERAL MEDICARE [place] PART A AND B FEDERAL
--- OUTSIDE RECORDS SUMMARY | 2025-05-07 08:38 | XMS_ITS | Encounter Summary ---
Author Organization [place] [address] Care Team Providers Care Floor Finisher Name Role Phone Unavailable Primary Care Provider Unavailabl e Encounter Details Date Type Department Care Team (Late st Contact Info) Description 01/07/2023 Orders Only [facility] [place] [phone] Barbara Bess MD [address] [place] [address] Social History Tobacco Use Types Packs/Day Years [...] AM EST) 01/07/2023 9:45 AM EST Narrative [facility] - 01/16/2023 11:22 AM EDT Requesting Provider: GIOVANNA Chaney Specimen = [id number] us Barbara Bess MD PATHOLOGY ORDERABLES Final Resul t Performing Organization Address City/State/[facility] Co de Phone Number [facility] [address] [place] [address] documented in this encounter Visit Diagnoses Not on filedocumented in this encounter
--- OUTSIDE RECORDS SUMMARY | 2025-05-07 08:38 | XMS_ITS | Encounter Summary ---
Author Organization [place] [address] Care Team Providers Care Powerplant Operator Name Role Phone Unavailable Primary Care Provider Unavailabl e Encounter Details Date Type Department Care Team (Late st Contact Info) Description 01/07/2023 Orders Only [facility] [place] [phone] Barbara Bess MD [address] [place] [phone] Social History Tobacco Use Types Packs/Day Years [...] Procedure Name Priority Date/Time Associated Diagnosis Comments [employer] STANDARD LEUKEMIA/LYMPHOMA PANEL Routine 01/07/2023 9:45 AM EST documented in this encounter Results * NEOGENOMICS STANDARD LEUKEMIA/LYMPHOMA PANEL (01/07/2023 9:45 AM EST) 01/07/2023 9:45 AM EST Narrative [facility] - 01/10/2023 3:22 PM EDT Requesting Provider: GIOVANNA Chaney Specimen = [id number] us Barbara Bess MD PATHOLOGY ORDERABLES Final Resul t Performing Organization Address City/State/[facility] Co de Phone Number [facility] [address] [place] [address] documented in this encounter Visit Diagnoses Not on filedocumented in this encounter
--- OUTSIDE RECORDS SUMMARY | 2025-05-07 08:39 | XMS_ITS | Encounter Summary ---
Author Organization [facility] Address [address] [place] [address] Care Team Providers Care Rn Clinical Resource Name Role Phone Kai Shea MD Primary Care Provider [phone]- [phone] Jessica Perales DO Unavailable [phone] Encounter Details Date Type Department Care Team (Late st Contact Info) Description 09/17/2021 Lab Requisition [facility] [address] [place] [address] Mar Diaz MD [address] [facility] [address] [place] [phone] Decreased white blood cell count, unspecified Social [...] EST Appointment [facility] Radiology [address] [place] [address] documented as of this encounter Procedures Procedure Name Priority Date/Time Associated Diagnosis Comments BONE MARROW EXAM CONSULT Routine 09/17/2021 9:40 AM EST Decreased white blood cell count, unspecified documented in this encounter Results * Bone Marrow Consult (09/17/2021 9:40 AM EST) Case Report Bone Marrow Case: [id number] Authorizing Provider: Mar Diaz MD Collected: 09/17/2021939 Ordering Location: [facility] Lab Received: 09/17/2021 0940 Pathologist: Jen Tesfaye MD Specimen: Bone Marrow Biopsy, [id number] 09/21/2021 1:36 PM EST [facility] Final Diagnosis PERIPHERAL BLOOD AND BONE MARROW, POSTERIOR ILIAC CREST (PERIPHERAL SMEAR, ASPIRATE SMEAR, AND CORE BIOPSY): - KAPPA RESECTED PLASMA CELL NEOPLASM, 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 Correlation with complete radiologic and laboratory studies is required for final diagnosis. 09/21/2021 1:36 PM EST [facility] Clinical Information D72.819 - Decreased white blood cell count, unspecified [ICD-10-CM] 09/21/2021 1:36 PM EST [facility] CBC and Differential PERIPHERAL BLOOD: No results found for requested labs within last 200 hours. DIFFERENTIAL:No results found for requested labs within last 200 hours. Leukopenia with mild lymphopenia and mild neutropenia.Macro cytic, normocytic red blood cells without anemia. Adequate platelets.no circulating plasma cells. 09/21/2021 1:36 PM EST [facility] Bone Marrow Differential BONE MARROW DIFFERENTIAL: 200 cells Normal Patient Neutrophils 15-50 12 Metamyelocytes 4-19 19 Myelocytes 1-18 23 Promyelocytes 1-8 0 Blasts 0-2 0 Monocytes 0-5 1 Erythroid 16-38 26 Lymphocytes 3-24 5 Eosinophils 0-6 7 Basophils 0-2 1 Plasma cells 0-4 6 Other 09/21/2021 1:36 PM EST [facility] Bone Marrow Aspirate and Biopsy The bone marrow aspirate smears show several cellular marrow particles with maturing trilineage hematopoiesis. Myeloid precursors are maturing . Blasts are not increased. Erythropoiesis is joiner apprentice. Plasma cells are increased and account for [...] Gain of 11q/CCND1 09/21/2021 1:36 PM EST [facility] Gross Description A. [id number] Received along with a corresponding pathology report from [facility] are 19 slide(s) labeled outside case: [id number] collected on 01/08/2021. 09/21/2021 1:36 PM EST [facility] Note: A resident was involved in the service. I attest I examined the relevant preparations for the specimens and confirmed the diagnosis or interpretation. 09/21/2021 1:36 PM EST [facility] Bone Marrow Specimen from bone marrow obtained by biopsy / Unknown 09/17/2021 9:40 AM EST 09/17/2021 9:40 AM EST us Mar Diaz MD LAB PATHOLOGY ORDERABLES Rosa godinez Result [facility] [address] [place] [address] documented in this encounter Visit Diagnoses Diagnosis Decreased white blood cell count, unspecified documented in this encounter Additional Health Concerns Assessment Noted Time A fall risk assessment has been complete d for the patient 2021 1:47 PM EDT documented as of this encounter Care Teams Rn Clinical Resource Relationship Specialty Start Date End Date Kai Shea MD [address] [place] [address] PCP - General 03/13/21 Jessica Perales DO [address] [facility] [address] [place] [phone] Resident Neurology 06/16/21 documented as of this encounter
--- OUTSIDE RECORDS SUMMARY | 2025-05-07 08:39 | XMS_ITS | Encounter Summary ---
Author Organization Healthcare Address [address] [place] [address] Care Team Providers Care Rat Culturist Name Role Phone Kai Shea MD Primary Care Provider [phone]- [phone] Jessica Perales DO Unavailable [phone] Encounter Details Date Type Department Care Team (Late st Contact Info) Description 01/15/2025 Lab Requisition [facility] [address] [place] [address] Sara Alegre [address] [place] [address] Encounter for general adult medical examination without [...] in a chcf (including now)? No 05/04/2024 PHQ-9 Answer Date [...] drink first t vane in the morning (EYE-FINANCIAL HEALTH COUNSELOR) to steady your nerves or to get [...] Appointment [facility] Radiology [address] [place] [address] documented as of this encounter Procedures Procedure [...] LAB HEMATOLOGY METHOD 01/16/2025 4:15 PM EDT [facility] Specimen Source, Body Fluid LAB HEMATOLOGY METHOD 01/16/2025 4:15 PM EDT [facility] Clinical Diagnosis, Body Fluid Joint effusion LAB HEMATOLOGY METHOD 01/16/2025 4:15 PM EDT [facility] Interpretation , Body Fluid Acute inflammatory cells; correlate with Gram stain/culture and/or crystal analysis. A resident was involved in the service. I attest I examined the relevant preparations for the specimens and confirmed the diagnosis or interpretation. 01/16/2025 4:15 PM EDT [facility] Pathologist Signature, Body Fluid 01/16/2025 4:15 PM EDT [facility] Comment:Reviewed by: Isabel Donohue MD LAB CP ASR DISCLAIMER Yes 01/16/2025 4:15 PM EDT [facility] Joint Fluid 01/15/2025 12:1 0 PM EDT 01/15/2025 2:41 PM EDT us Sara Codey LAB BODY FLUIDS AND STOOLS ORDER MARYLIN Final Result Performing Organization Address City/[facility]/ZIP Co de Phone Number [facility] [address] [place] [address] * (ABNORMAL) Joint Fluid Crystals (01/15/2025 12:10 PM EDT) Crystals, Joint Fluid Calcium Pyrophosphate Crystals Present(A) No Crystals Present 01/15/2025 7:55 PM EDT [facility] Joint Fluid 01/15/2025 12:1 0 PM EDT 01/15/2025 2:41 PM EDT Narrative [facility] - 01/15/2025 7:55 PM EDT Under compensated polarized light microscopy rhomboidal positively birefringent crystals are seen consistent with Calcium Pyrophosphate. The presence of steroid crystals may result in a false positive. Correlate results with recent history up to 2 months of steroid injection. Sara Codey LAB BODY FLUIDS AND STOOLS ORDER MARYLIN Final Result Performing Organization Address [facility] Co de Phone Number [facility] [address] [place] [address] * (ABNORMAL) Body Fluid Cell Count w/ Diff (01/15/2025 12:10 PM EDT) Color, Body fluid Red LAB HEMATOLOGY METHOD 01/15/2025 7:53 PM EDT [facility] Appearance, Body fluid Cloudy(A) LAB HEMATOLOGY METHOD 01/15/2025 7:53 PM EDT [facility] Volume, Body fluid 4.0 cc LAB HEMATOLOGY METHOD 01/15/2025 7:53 PM EDT [facility] Fluid Container Specimen received in Sodium Heparin LAB HEMATOLOGY METHOD 01/15/2025 7:53 PM EDT [facility] Red Blood Cell Count, Body fluid 45,500 uL LAB HEMATOLOGY METHOD 01/15/2025 7:53 PM EDT [facility] Comment:Clumps present, coun t may be affected. Test performed by manual method. Total Nucleated Cell Count, Body fluid 75,000 uL LAB HEMATOLOGY METHOD 01/15/2025 7:53 PM EDT [facility] Comment:Clumps present, coun t may be affected. Test performed by manual method. Neutrophils %, Body fluid 93 % LAB HEMATOLOGY METHOD 01/15/2025 7:53 PM EDT [facility] Lymphocytes %, Body fluid 0 % LAB HEMATOLOGY METHOD 01/15/2025 7:53 PM EDT [facility] Monocytes/Macro phages %, Body fluid 7 % LAB HEMATOLOGY METHOD 01/15/2025 7:53 PM EDT [facility] Eosinophils %, Body fluid 0 % LAB HEMATOLOGY METHOD 01/15/2025 7:53 PM EDT [facility] Lining/Mesothel ial Cells %, Body fluid 0 % LAB HEMATOLOGY METHOD 01/15/2025 7:53 PM EDT [facility] Neutrophils Absolute (PMN), Body fluid 69,750 uL LAB HEMATOLOGY METHOD 01/15/2025 7:53 PM EDT [facility] Lymphocytes Absolute, Body fluid 0 uL LAB HEMATOLOGY METHOD 01/15/2025 7:53 PM EDT [facility] Monocytes/Macro phages Absolute, Body fluid 5,250 uL LAB HEMATOLOGY METHOD 01/15/2025 7:53 PM EDT [facility] Eosinophils Absolute, Body fluid 0 uL LAB HEMATOLOGY METHOD 01/15/2025 7:53 PM EDT [facility] Basophils Absolute, Body fluid 0 uL LAB HEMATOLOGY METHOD 01/15/2025 7:53 PM EDT [facility] Lining/Mesothel ial Cells Absolute, Body fluid 0 uL LAB HEMATOLOGY METHOD 01/15/2025 7:53 PM EDT [facility] Comment, Body fluid None LAB HEMATOLOGY METHOD 01/15/2025 7:53 PM EDT [facility] Comment:This is an appended report. These results have been appended to a previously preliminary verified report. Basophils %, Body fluid 0 % LAB HEMATOLOGY METHOD 01/15/2025 7:53 PM EDT [facility] Joint Fluid 01/15/2025 12:1 0 PM EDT 01/15/2025 2:41 PM EDT Sara Alegre LAB BODY FLUIDS AND STOOLS ORDERABLES NO SPECIMEN TYPE/SOURCE Final Result [facility] [address] [place] [address] documented in this encounter Visit Diagnoses Diagnosis [...] documented as of this encounter Care Teams Rat Culturist Relationship Specialty Start Date End Date Kai Shea MD [address] [place] [address] PCP - General 03/13/21 Jessica Perales DO [address] [place] [address] Resident Neurology 06/16/21 documented as of this encounter
[2025-05-07 08:58] LABS: Hematocrit 41.2 % (42.0-52.0); Hemoglobin 12.8 g/dL (14.1-18.0); Immature Granulocytes % 0.5 %; Mean Corpuscular HGB Conc 31.1 g/dL (31.8-35.4); Mean Corpuscular Hemoglobin 30.3 pg (27.0-31.2); Mean Corpuscular Volume 97.6 fl (80-94); Nucleated Red Blood Cells % 0 %; Platelet Count 166 K/mm3 (142-424); Red Blood Count 4.22 M/mm3 (4.60-6.20); Red Cell Distribution Width-SD 52.1 fL; White Blood Count 4.4 K/mm3 (4.8-10.8)
[2025-05-07 09:12] LABS: Alanine Aminotransferase 16 U/L (12-78); Albumin Level 4.7 g/dl (3.5-5.0); Albumin/Globulin Ratio 1.8 (1.1-1.8); Alkaline Phosphatase 94 U/L (38-126); Anion Gap 16.0 mEq/L (5-15); Aspartate Amino Transferase 22 U/L (17-59); Bilirubin,Total 1.0 mg/dl (0.2-1.3); Blood Urea Nitrogen 26 mg/dl (9-20); Calcium 9.5 mg/dl (8.4-10.2); Carbon Dioxide 30 mmol/L (22.0-30.0); Chloride 99 mmol/L (98-107); Creatinine,Serum 1.10 mg/dl (0.66-1.25); Estimated Glomerular Filt Rate 65 ml/min (>60); GFR (African American) 79 ML/MIN (>60); Globulin 2.6 g/dL (1.3-3.2); Glucose 130 mg/dl (74-100); Potassium 4.0 mmoL/L (3.5-5.1); Sodium 141 mmol/L (136-145); Total Protein,Serum 7.3 g/dl (6.3-8.2)
--- NOTE | 2025-05-07 09:35 | PC.NURSE ---
05/07/25 0850 Pt reports to have blood drawn prior to md appt today. Venipuncture performed using butterfly access needle x 1 stick to pt's lt ac and blood obtained for labs. Needle withdrawn and site secured with 2x2 gauze and coban. Pt to attend md appt-pt escorted with family via wc to outpt clinic.
[2025-05-07 10:33] LABS: INR 1.94 (0.9-1.1); Prothrombin Time 20.5 seconds (10.1-12.5)
[2025-05-07 13:05] LABS: NT Pro Brain Natriuretic Pep. 2790 pg/mL (0-125)
[2025-05-08 16:20] LABS: Albumin 3.8 g/dL (2.9-4.4); Alpha-1-Globulin 0.3 g/dL (0.0-0.4); Alpha-2-Globulin 0.8 g/dL (0.4-1.0); Gamma Globulin 0.8 g/dL (0.4-1.8)
[2025-05-09 16:25] LABS: Immunoglobulin A, Qn 122 mg/dL (61-437); Immunoglobulin G, Qn 811 mg/dL (603-1613); Immunoglobulin M, Qn 57 mg/dL (15-143)
[2025-05-10 09:05] LABS: PDF SCANNED IMAGE
== END 2025-05-07 10:15 | disposition home or self-care (01) ==
LOC: INF 08:35
PROVIDERS: Physician Assistant; PCP Family Medicine; Visit Provider Internal Medicine Medical Oncology
DX: D47.2 Monoclonal gammopathy (principal); I50.23 Acute on chronic systolic (congestive) heart failure
CPT/HCPCS: 36415; 80053; 82784; 83521; 83880; 84155; 84165; 85025; 85610; 86334

== ENCOUNTER 2025-05-09 08:50 | Outpatient (CLI) | payer MEDICARE, BC, SELFPAY ==
--- OUTSIDE RECORDS SUMMARY | 2025-05-09 08:54 | XMS_ITS | Encounter Summary ---
Author Organization Healthcare Address [address] [place] [address] Care Team Providers Care Deputy Clerk Of Court Name Role Phone Kai Shea MD Primary Care Provider [phone]- [phone] Jessica Perales DO Unavailable [phone] Encounter Details Date Type Department Care Team (Late st Contact Info) Description 12/31/2024 Lab Requisition [facility] [address] [place] [address] Valdo Carrillo, CARLOS [address] [place] [address] Encounter for general adult medical examination without [...] drink first t vane in the morning (EYE-CUFF STITCHER) to steady your nerves or to get [...] Appointment [facility] Radiology [address] [place] [address] documented as of this encounter Procedures Procedure [...] LAB HEMATOLOGY METHOD 01/01/2025 2:[address] [facility] Specimen Source, Body Fluid LAB HEMATOLOGY METHOD 01/01/2025 2:[address] [facility] Clinical Diagnosis, Body Fluid Joint fluid. Neuropathy. History of plasma cell neoplasm and Parkinson's LAB HEMATOLOGY METHOD 01/01/2025 2:[address] [facility] Interpretation , Body Fluid No evidence of malignancy; acute inflammatory cells. See comment A resident was involved in the service. I attest I examined the relevant preparations for the specimens and confirmed the diagnosis or interpretation. 01/01/2025 2:[address] [facility] Pathologist Signature, Body Fluid 01/01/2025 2:[address] [facility] Comment:Reviewed by: Prashanth Montiel MD LAB CP ASR DISCLAIMER Yes 01/01/2025 2:[address] [facility] Joint Fluid 12/31/2024 3:15 PM EST 12/31/2024 6:[address] [facility] - 01/01/2025 2:08 PM EST Correlation with microbiology studies is suggested. Valdo GONZALEZ LAB BODY FLUIDS AND STOOLS ORDERABLES Final Result [facility] [address] [place] [address] * (ABNORMAL) Body Fluid Cell Count w/ Diff (12/31/2024 3:15 PM EST) Color, Body fluid Yellow LAB HEMATOLOGY METHOD 12/31/2024 8:[address] [facility] Appearance, Body fluid Cloudy(A) LAB HEMATOLOGY METHOD 12/31/2024 8:[address] [facility] Volume, Body fluid 2.5 cc LAB HEMATOLOGY METHOD 12/31/2024 8:[address] [facility] Fluid Container Specimen received in EDTA tube LAB HEMATOLOGY METHOD 12/31/2024 8:[address] [facility] Red Blood Cell Count, Body fluid 5,000 uL LAB HEMATOLOGY METHOD 12/31/2024 8:[address] [facility] Total Nucleated Cell Count, Body fluid 44,000 uL LAB HEMATOLOGY METHOD 12/31/2024 8:[address] [facility] Neutrophils %, Body fluid 95 % LAB HEMATOLOGY METHOD 12/31/2024 8:[address] [facility] Lymphocytes %, Body fluid 1 % LAB HEMATOLOGY METHOD 12/31/2024 8:00 PM [facility] Monocytes/Macro phages %, Body fluid 4 % LAB HEMATOLOGY METHOD 12/31/2024 8:00 PM [facility] Eosinophils %, Body fluid 0 % LAB HEMATOLOGY METHOD 12/31/2024 8:00 PM [facility] Lining/Mesothel ial Cells %, Body fluid 0 % LAB HEMATOLOGY METHOD 12/31/2024 8:[address] [facility] Neutrophils Absolute (PMN), Body fluid 41,800 uL LAB HEMATOLOGY METHOD 12/31/2024 8:00 PM [facility] Lymphocytes Absolute, Body fluid 440 uL LAB HEMATOLOGY METHOD 12/31/2024 8:00 PM [facility] Monocytes/Macro phages Absolute, Body fluid 1,760 uL LAB HEMATOLOGY METHOD 12/31/2024 8:00 PM [facility] Eosinophils Absolute, Body fluid 0 uL LAB HEMATOLOGY METHOD 12/31/2024 8:[address] [facility] Basophils Absolute, Body fluid 0 uL LAB HEMATOLOGY METHOD 12/31/2024 8:[address] [facility] Lining/Mesothel ial Cells Absolute, Body fluid 0 uL LAB HEMATOLOGY METHOD 12/31/2024 8:[address] [facility] Comment, Body fluid None LAB HEMATOLOGY METHOD 12/31/2024 8:[address] [facility] Comment:This is an appended report. These results have been appended to a previously preliminary verified report. Basophils %, Body fluid 0 % LAB HEMATOLOGY METHOD 12/31/2024 8:[address] [facility] Joint Fluid 12/31/2024 3:15 PM EST 12/31/2024 6:01 PM EST us Valdo GONZALEZ LAB BODY FLUIDS AN D STOOLS ORDERABLES NO SPECIMEN TYPE/SOURCE Final Result Performing Organization Address [facility] Co de Phone Number [facility] [address] [place] [address] * (ABNORMAL) Synovial fluid, crystal (12/31/2024 3:15 PM EST) Crystals, Joint Fluid Calcium Pyrophosphate Crystals Present(A) No Crystals Present 12/31/2024 11:[address] [facility] Joint Fluid 12/31/2024 3:15 PM EST 12/31/2024 6:[address] [facility] - 12/31/2024 11:06 PM EST Under compensated polarized light microscopy rhomboidal positively birefringent crystals are seen consistent with Calcium Pyrophosphate. The presence of steroid crystals may result in a false positive. Correlate results with recent history up to 2 months of steroid injection. us Valdo GONZALEZ LAB BODY FLUIDS AND STOOLS ORDERABLES Final Result Performing Organization Address [facility] Co de Phone Number [facility] [address] [place] [address] documented in this encounter Visit Diagnoses Diagnosis [...] documented as of this encounter Care Teams Deputy Clerk Of Court Relationship Specialty Start Date End Date Kai Shea MD [address] [place] [address] PCP - General 03/13/21 Jessica Perales DO [address] [place] [address] Resident Neurology 06/16/21 documented as of this encounter
--- OUTSIDE RECORDS SUMMARY | 2025-05-09 08:54 | XMS_ITS | Encounter Summary ---
Author Organization Healthcare Address [address] [place] [address] Care Team Providers Care Instrument Inspector Name Role Phone Kai Shea MD Primary Care Provider [phone]- [phone] Jessica Perales DO Unavailable [phone] Encounter Details Date Type Department Care Team (Late st Contact Info) Description 12/31/2024 Lab Requisition [facility] [address] [place] [address] Valdo Carrillo, CARLOS [address] [place] [address] Encounter for general adult medical examination without [...] drink first t vane in the morning (EYE-BURNISHER AND BUMPER) to steady your nerves or to get [...] Appointment [facility] Radiology [address] [place] [address] documented as of this encounter Procedures Procedure Name Priority Date/Time Associated Diagnosis Comments BODY FLUID CULTURE AND GRAM STAIN Routine 12/31/2024 5:40 PM EST Encounter for general adult medical examination without abnormal findings documented in this encounter Results * (ABNORMAL) Body Fluid Culture and Gram Stain (12/31/2024 5:40 PM EST) Culture Light Growth 01/06/2025 10:47 AM EDT [facility] Culture Staphylococcus epidermidis(A) [place] 01/06/2025 10:47 AM EDT [facility] Comment: This isolate has been identified using the FDA Approved instruMagic CA System The organism value for this result has been updated. These results have been appended to the previously preliminary verified report. Edited result: Previously reported as Gram positive cocci on 01/02/2025 at 0908 EST. Gram Stain Result Numerous Polymorphonuclear leukocytes(A) 01/06/2025 10:47 AM EDT [facility] Gram Stain Result Rare Gram positive cocci in pairs(A) 01/06/2025 10:47 AM EDT [facility] Joint Fluid Synovial fluid [...] LAB MICROBIOLOGY - GENERAL ORDERABLES Final Result [facility] [address] [place] [address] documented in this encounter Visit Diagnoses Diagnosis [...] documented as of this encounter Care Teams Instrument Inspector Relationship Specialty Start Date End Date Kai Shea MD [address] [place] [address] PCP - General 03/13/21 Jessica Perales DO [address] [place] [address] Resident Neurology 06/16/21 documented as of this encounter
--- OUTSIDE RECORDS SUMMARY | 2025-05-09 08:54 | XMS_ITS | Encounter Summary ---
Author Organization Healthcare Address [address] [place] [address] Care Team Providers Care Assistant Press Operator Offset Name Role Phone Kai Shea MD Primary Care Provider [phone] Jessica Perales DO Unavailable [phone] Encounter Details Date Type Department Care Team (Late st Contact Info) Description 11/05/2024 Orders Only [place] [facility] [address] [place] [address] Rome York, DO [address] [place] [id number] Neuropathy Social History Tobacco Use Types Packs/Day [...] to sleep or slept in a senior care (including now)? No 05/04/2024 CAGE ASSESSMENT Answer [...] drink first t vane in the morning (EYE-INSURANCE ANALYST) to steady your nerves or to get [...] Appointment [facility] Radiology [address] [place] [address] documented as of this encounter Visit Diagnoses Diagnosis Neuropathy Mononeuritis of unspecified site documented in this encounter Additional Health Concerns Assessment Noted Time A fall risk assessment has been complete d for the patient 12/19/2023 3:03 PM EST A Body Mass Index follow-up plan has been documented for the patient 05/05/2024 11:32 AM EDT documented as of this encounter Care Teams Assistant Press Operator Offset Relationship Specialty Start Date End Date Kai Shea MD [address] [place] [address] PCP - General 03/13/21 Jessica Perales DO [address] [place] [address] Resident Neurology 06/16/21 documented as of this encounter
--- OUTSIDE RECORDS SUMMARY | 2025-05-09 08:55 | XMS_ITS | Encounter Summary ---
Author Organization [place] [address] Care Team Providers Care Ginger Farmer Name Role Phone Unavailable Primary Care Provider Unavailabl e Encounter Details Date Type Department Care Team (Late st Contact Info) Description 01/07/2023 [facility] Only [facility] [place] [phone] Barbara Bess MD [address] [place] [address] Social History Tobacco Use Types Packs/Day Years [...] AM EST) 01/07/2023 9:45 AM EST Narrative [facility] - 01/24/2023 5:22 PM EDT Requesting Provider: GIOVANNA Chaney Specimen = [id number] us Barbara Bess MD PATHOLOGY ORDERABLES Final Resul t [facility] [address] [place] [address] documented in this encounter Visit Diagnoses Not on filedocumented in this encounter
--- OUTSIDE RECORDS SUMMARY | 2025-05-09 08:55 | XMS_ITS | Encounter Summary ---
Author Organization [place] [address] Care Team Providers Care Business Strategy Manager Name Role Phone Unavailable Primary Care Provider Unavailabl e Encounter Details Date Type Department Care Team (Late st Contact Info) Description 01/07/2023 [facility] Only [facility] [place] [id number] Barbara Bess MD [address] [place] [address] Social History Tobacco Use Types Packs/Day Years [...] AM EST) 01/07/2023 9:45 AM EST Narrative [facility] - 01/16/2023 11:22 AM EDT Requesting Provider: GIOVANNA Chaney Specimen = [id number] us Barbara Bess MD PATHOLOGY ORDERABLES Final Resul t Performing Organization Address City/State/[facility] Co de Phone Number [facility] [address] [place] [address] documented in this encounter Visit Diagnoses Not on filedocumented in this encounter
--- OUTSIDE RECORDS SUMMARY | 2025-05-09 08:55 | XMS_ITS | Clinical Summary ---
Author Organization [facility] Address [address] [place] [address] Care Team Providers Care Soda Room Operator Name Role Phone Kai Shea MD Primary Care Provider [phone]- [phone] Jessica Perales DO Unavailable [phone] Allergies No known active allergies Medications atorvastatin [...] Type Department Care Team Description [facility]/22[facility] [place] [facility] [place] [address] Monica Sue MD from Last 3 Months Immunizations Immunization Administration Dates Next Due Mimetas COVID-19 Vaccine (Purple Cap) 12 + 01/16/2021,12/24/2020 [...] place to sleep or slept in a nursing home (including now)? No 05/04/2024 PHQ-9 Answer [...] drink first t vane in the morning (EYE-MOTOR VEHICLE ASSEMBLER) to steady your nerves or to get [...] Appointment [facility] A Radiology [address] [place] [address] Health Maintenance Due Date Last Done Comments [facility]-Medicare Annual Wellness (AWV) 1950 [facility]-/Child/Adol SDOH Screenings 1950 [facility]-Zoster Vaccines (1 of 2) 1969 CT Colonography 1995 Colonoscopy 1995 FIT-DNA 1995 FIT 1995 FOBT 1995 Sigmoidoscopy 1995 [facility]-Colorectal Cancer Screening 1995 [facility]-RSV Vaccine: 60+ Years or (1 - Risk 60-74 years 1-dose series) 2010 [facility]-Pneumococcal Vaccine: 50+ Years (2 of 2 - PPSV23) 03/16/2019 01/19/2019 [id number] Vaccine ( season) 2024 10/08/2021, 01/16/2021, 12/24/2020 [...] Antibody Negative Negative 05/03/2024 5:39 PM EDT [facility] Blood Venous blood specimen / Unknown Venipuncture / Unknown 05/03/2024 4:48 PM EDT 05/03/2024 4:58 PM EDT us Rome Dominguez MD LAB BLOOD ORDERABLES Final Result Performing Organization Address City/State/[facility] Co de Phone Number [facility]ALTH[facility]ARE [facility] [address] [place] [address] from Last 3 Months or Most Recently Relevant to Health Maintenance Insurance [facility] [place] [address] Advance Directives Documents on File Type Date Recorded 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 Yes Care Teams Soda Room Operator Relationship Specialty Start Date End Date Kai Shea MD [address] [place] [address] PCP - General 03/13/21 Jessica Perales DO [address] [place] [address] Resident Neurology 06/16/21
--- OUTSIDE RECORDS SUMMARY | 2025-05-09 08:55 | XMS_ITS | Encounter Summary ---
Author Organization Healthcare Address [address] [place] [address] Care Team Providers Care Mobile Marketing Specialist Name Role Phone Kai Shea MD Primary Care Provider [phone] Jessica Perales DO Unavailable Encounter Details Date Type Department Care Team (Late st Contact Info) Description [facility] [place] [facility] [address] [place] [address] Monica Sue MD [address] [place] [address] Social History Tobacco Use Types [...] drink first t vane in the morning (EYE-LAW INSTRUCTOR) to steady your nerves or to get [...] EST Appointment [facility] A Radiology [address] [place] [address] documented as of this encounter Visit Diagnoses [...] documented as of this encounter Care Teams Mobile Marketing Specialist Relationship Specialty Start Date End Date Kai Shea MD [address] [place] [address] PCP - General 03/13/21 Jessica Perales DO [address] [place] [address] Resident Neurology 06/16/21 documented as of this encounter
--- OUTSIDE RECORDS SUMMARY | 2025-05-09 08:55 | XMS_ITS | Encounter Summary ---
Author Organization [facility] [place] [address] Care Team Providers Care Supervisor Pigment Making Name Role Phone Unavailable Primary Care Provider Unavailabl e Encounter Details Date Type Department Care Team (Late st Contact Info) Description 01/07/2023 Orders Only [facility] [place] [id number] Barbara Bess MD [address] [place] [phone] Social History Tobacco Use Types Packs/Day Years [...] Procedure Name Priority Date/Time Associated Diagnosis Comments Method CRM STANDARD LEUKEMIA/LYMPHOMA PANEL Routine 01/07/2023 9:45 AM EST documented in this encounter Results * NEOGENOMICS STANDARD LEUKEMIA/LYMPHOMA PANEL (01/07/2023 9:45 AM EST) 01/07/2023 9:45 AM EST Narrative [facility] - 01/10/2023 3:22 PM EDT Requesting Provider: GIOVANNA Chaney Specimen = [id number] us Barbara Bess MD PATHOLOGY ORDERABLES Final Resul t Performing Organization Address City/State/[facility] Co de Phone Number [facility] [address] [place] [address] documented in this encounter Visit Diagnoses Not on filedocumented in this encounter
--- OUTSIDE RECORDS SUMMARY | 2025-05-09 08:55 | XMS_ITS | Encounter Summary ---
Author Organization [facility] Address [address] [place] [address] Care Team Providers Care Fur Blowing Machine Operator Name Role Phone Kai Shea MD Primary Care Provider [phone]- [phone] Jessica Perales DO Unavailable [phone] Encounter Details Date Type Department Care Team (Late st Contact Info) Description 09/17/2021 Lab Requisition [facility] H Lab [address] [place] [address] Mar Diaz MD [address] [facility] [address] [place] [phone] Decreased white blood cell count, unspecified Social [...] EST Appointment [facility] A Radiology [address] [place] [address] documented as of this encounter Procedures Procedure Name Priority Date/Time Associated Diagnosis Comments BONE MARROW EXAM CONSULT Routine 09/17/2021 9:40 AM EST Decreased white blood cell count, unspecified documented in this encounter Results * Bone Marrow Consult (09/17/2021 9:40 AM EST) Case Report Bone Marrow Case: [id number] Authorizing Provider: Mar Diaz MD Collected: 09/17/2021939 Ordering Location: [facility] Lab Received: 09/17/2021 0940 Pathologist: Jen Tesfaye MD Specimen: Bone Marrow Biopsy, [id number] 09/21/2021 1:36 PM EST [facility] Final Diagnosis PERIPHERAL BLOOD AND BONE MARROW, POSTERIOR ILIAC CREST (PERIPHERAL SMEAR, ASPIRATE SMEAR, AND CORE BIOPSY): - KAPPA RESECTED PLASMA CELL NEOPLASM, 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 Correlation with complete radiologic and laboratory studies is required for final diagnosis. 09/21/2021 1:36 PM EST [facility] Clinical Information D72.819 - Decreased white blood cell count, unspecified [ICD-10-CM] 09/21/2021 1:36 PM EST [facility] CBC and Differential PERIPHERAL BLOOD: No results found for requested labs within last 200 hours. DIFFERENTIAL:No results found for requested labs within last 200 hours. Leukopenia with mild lymphopenia and mild neutropenia.Macro cytic, normocytic red blood cells without anemia. Adequate platelets.no circulating plasma cells. 09/21/2021 1:36 PM EST [facility] Bone Marrow Differential BONE MARROW DIFFERENTIAL: 200 cells Normal Patient Neutrophils 15-50 12 Metamyelocytes 4-19 19 Myelocytes 1-18 23 Promyelocytes 1-8 0 Blasts 0-2 0 Monocytes 0-5 1 Erythroid 16-38 26 Lymphocytes 3-24 5 Eosinophils 0-6 7 Basophils 0-2 1 Plasma cells 0-4 6 Other 09/21/2021 1:36 PM EST [facility] Bone Marrow Aspirate and Biopsy The bone marrow aspirate smears show several cellular marrow particles with maturing trilineage hematopoiesis. Myeloid precursors are maturing . Blasts are not increased. Erythropoiesis is hearing specialist. Plasma cells are increased and account for [...] Gain of 11q/CCND1 09/21/2021 1:36 PM EST [facility] Gross Description A. [id number] Received along with a corresponding pathology report from Pathology & Cytology Laboratory are 19 slide(s) labeled outside case: [id number] collected on 01/08/2021. 09/21/2021 1:36 PM EST [facility] Note: A resident was involved in the service. I attest I examined the relevant preparations for the specimens and confirmed the diagnosis or interpretation. 09/21/2021 1:36 PM EST [facility] Bone Marrow Specimen from bone marrow obtained by biopsy / Unknown 09/17/2021 9:40 AM EST 09/17/2021 9:40 AM EST us Mar Diaz MD LAB PATHOLOGY ORDERABLES Rosa godinez Result [facility] [address] [place] [address] documented in this encounter Visit Diagnoses Diagnosis Decreased white blood cell count, unspecified documented in this encounter Additional Health Concerns Assessment Noted Time A fall risk assessment has been complete d for the patient 2021 1:47 PM EDT documented as of this encounter Care Teams Fur Blowing Machine Operator Relationship Specialty Start Date End Date Kai Shea MD [address] [place] [address] PCP - General 03/13/21 Jessica Perales DO [address] [facility] [address] [place] [address] Resident Neurology 06/16/21 documented as of this encounter
--- OUTSIDE RECORDS SUMMARY | 2025-05-09 08:55 | XMS_ITS | Encounter Summary ---
Author Organization Healthcare Address [address] [place] [address] Care Team Providers Care Cold Working Supervisor Name Role Phone Kai Shea MD Primary Care Provider [phone]- [phone] Jessica Perales DO Unavailable [phone] Encounter Details Date Type Department Care Team (Late st Contact Info) Description 01/15/2025 Lab Requisition [facility] [address] [place] [address] Sara Alegre [address] [place] [address] Encounter for general adult medical examination without [...] place to sleep or slept in a fpc (including now)? No 05/04/2024 PHQ-9 Answer Date [...] drink first t vane in the morning (EYE-SUPERVISORY CBP OFFICER) to steady your nerves or to get [...] Appointment [facility] A Radiology [address] [place] [address] documented as of this encounter Procedures Procedure [...] LAB HEMATOLOGY METHOD 01/16/2025 4:15 PM EDT [facility] Specimen Source, Body Fluid LAB HEMATOLOGY METHOD 01/16/2025 4:15 PM EDT [facility] Clinical Diagnosis, Body Fluid Joint effusion LAB HEMATOLOGY METHOD 01/16/2025 4:15 PM EDT [facility] Interpretation , Body Fluid Acute inflammatory cells; correlate with Gram stain/culture and/or crystal analysis. A resident was involved in the service. I attest I examined the relevant preparations for the specimens and confirmed the diagnosis or interpretation. 01/16/2025 4:15 PM EDT [facility] Pathologist Signature, Body Fluid 01/16/2025 4:15 PM EDT [facility] Comment:Reviewed by: Isabel Donohue MD LAB CP ASR DISCLAIMER Yes 01/16/2025 4:15 PM EDT [facility] Joint Fluid 01/15/2025 12:1 0 PM EDT 01/15/2025 2:41 PM EDT us Sara Codey LAB BODY FLUIDS AND STOOLS ORDER MARYLIN Final Result Performing Organization Address City/[facility]/ZIP Co de Phone Number [facility] [address] [place] [address] * (ABNORMAL) Joint Fluid Crystals (01/15/2025 12:10 PM EDT) Crystals, Joint Fluid Calcium Pyrophosphate Crystals Present(A) No Crystals Present 01/15/2025 7:55 PM EDT [facility] Joint Fluid 01/15/2025 12:1 0 PM EDT 01/15/2025 2:41 PM EDT [facility]arrative [facility] - 01/15/2025 7:55 PM EDT Under compensated polarized light microscopy rhomboidal positively birefringent crystals are seen consistent with Calcium Pyrophosphate. The presence of steroid crystals may result in a false positive. Correlate results with recent history up to 2 months of steroid injection. Sara Codey LAB BODY FLUIDS AND STOOLS ORDER MARYLIN Final Result Performing Organization Address [facility] Co de Phone Number [facility] [address] [place] [address] * (ABNORMAL) Body Fluid Cell Count w/ Diff (01/15/2025 12:10 PM EDT) Color, Body fluid Red LAB HEMATOLOGY METHOD 01/15/2025 7:53 PM EDT [facility] Appearance, Body fluid Cloudy(A) LAB HEMATOLOGY METHOD 01/15/2025 7:53 PM EDT [facility] Volume, Body fluid 4.0 cc LAB HEMATOLOGY METHOD 01/15/2025 7:53 PM EDT [facility] Fluid Container Specimen received in Sodium Heparin LAB HEMATOLOGY METHOD 01/15/2025 7:53 PM EDT [facility] Red Blood Cell Count, Body fluid 45,500 uL LAB HEMATOLOGY METHOD 01/15/2025 7:53 PM EDT [facility] Comment:Clumps present, coun t may be affected. Test performed by manual method. Total Nucleated Cell Count, Body fluid 75,000 uL LAB HEMATOLOGY METHOD 01/15/2025 7:53 PM EDT [facility] Comment:Clumps present, coun t may be affected. Test performed by manual method. Neutrophils %, Body fluid 93 % LAB HEMATOLOGY METHOD 01/15/2025 7:53 PM EDT [facility] Lymphocytes %, Body fluid 0 % LAB HEMATOLOGY METHOD 01/15/2025 7:53 PM EDT [facility] Monocytes/Macro phages %, Body fluid 7 % LAB HEMATOLOGY METHOD 01/15/2025 7:53 PM EDT [facility] Eosinophils %, Body fluid 0 % LAB HEMATOLOGY METHOD 01/15/2025 7:53 PM EDT [facility] Lining/Mesothel ial Cells %, Body fluid 0 % LAB HEMATOLOGY METHOD 01/15/2025 7:53 PM EDT [facility] Neutrophils Absolute (PMN), Body fluid 69,750 uL LAB HEMATOLOGY METHOD 01/15/2025 7:53 PM EDT [facility] Lymphocytes Absolute, Body fluid 0 uL LAB HEMATOLOGY METHOD 01/15/2025 7:53 PM EDT [facility] Monocytes/Macro phages Absolute, Body fluid 5,250 uL LAB HEMATOLOGY METHOD 01/15/2025 7:53 PM EDT [facility] Eosinophils Absolute, Body fluid 0 uL LAB HEMATOLOGY METHOD 01/15/2025 7:53 PM EDT [facility] Basophils Absolute, Body fluid 0 uL LAB HEMATOLOGY METHOD 01/15/2025 7:53 PM EDT [facility] Lining/Mesothel ial Cells Absolute, Body fluid 0 uL LAB HEMATOLOGY METHOD 01/15/2025 7:53 PM EDT [facility] Comment, Body fluid None LAB HEMATOLOGY METHOD 01/15/2025 7:53 PM EDT [facility] Comment:This is an appended report. These results have been appended to a previously preliminary verified report. Basophils %, Body fluid 0 % LAB HEMATOLOGY METHOD 01/15/2025 7:53 PM EDT [facility] Joint Fluid 01/15/2025 12:1 0 PM EDT 01/15/2025 2:41 PM EDT Sara Alegre LAB BODY FLUIDS AND STOOLS ORDERABLES NO SPECIMEN TYPE/SOURCE Final Result [facility] [address] [place] [address] documented in this encounter Visit Diagnoses Diagnosis [...] documented as of this encounter Care Teams Cold Working Supervisor Relationship Specialty Start Date End Date Kai Shea MD [address] [place] [address] PCP - General 03/13/21 Jessica Perales DO [address] [place] [address] Resident Neurology 06/16/21 documented as of this encounter
--- OUTSIDE RECORDS SUMMARY | 2025-05-09 08:55 | XMS_ITS | Encounter Summary ---
Author Organization [place] [address] Care Team Providers Care Science Manager Name Role Phone Unavailable Primary Care Provider Unavailabl e Encounter Details Date Type Department Care Team (Late st Contact Info) Description 01/07/2023 Orders Only [facility] [place] [id number] Barbara Bess MD [address] [place] [address] Social History Tobacco Use Types Packs/Day Years [...] AM EST) 01/07/2023 9:45 AM EST Narrative [facility] - 01/17/2023 1:28 PM EDT Requesting Provider: GIOVANNA Chaney Specimen = [id number] us Barbara Bess MD PATHOLOGY ORDERABLES Final Resul t [facility] [address] [place] [address] documented in this encounter Visit Diagnoses Not on filedocumented in this encounter
--- OUTSIDE RECORDS SUMMARY | 2025-05-09 08:55 | XMS_ITS | Clinical Summary ---
Author Organization [facility] Address [address] [facility] [address] [place] [address] Phone Care Team Providers Care Material Movers Name Role Phone Unavailable Primary Care Provider [...] age to complete this topic Insurance FEDERAL [facility] FEDERAL MEDICARE [place] PART A AND B FEDERAL
[2025-05-09 09:15] VITALS: BP 103/67; PULSE 76; RESP 18; TEMP 36.7; O2SAT 98
[2025-05-09] MEDS: DENOSUMAB 120MG/1.7ML VIAL 120 MG SUBCUT (09:15)
== END 2025-05-09 09:30 | disposition home or self-care (01) ==
LOC: INF 08:52
PROVIDERS: PCP Family Medicine; Visit Provider Internal Medicine Medical Oncology
DX: D47.2 Monoclonal gammopathy (principal)
CPT/HCPCS: 96372; J0897

== ENCOUNTER 2025-05-14 07:37 | Outpatient (CLI) | payer MEDICARE, BC, SELFPAY ==
--- OUTSIDE RECORDS SUMMARY | 2025-03-20 20:00 | XMS_ITS | Clinical Summary ---
Author Organization Unknown Care Team Providers Care Coil Maker Name Role Phone KRISTEN MANJARREZ, RAÚL Unavailable Unavailable WILY PT, RICHA Unavailable Unavailable PHILOMENA ROUTER MACHINE OPERATOR, ZULY Unavailable Unavailable CICI RN, TIFFANY Unavailable Unavailable Payers Payer Name Policy Type Policy Number Effective Date Expira tion Date [place]ICARE.[place] [id number] Problems Condition Name Condition Details Condition Category [...] 01-21 00:00: 00 ATHSCL HEART DISEASE OF [place] CORONARY ARTERY W/O ANG PCTRS Active 01-21 [...] HYPERLIPIDEM IA, UNSPECIFIED Active 01-21 00:00: 00 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 Active 01-21 00:00: 00 DISTILLERY MANAGER (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 OF ANTICOAGULAN TS Active 01-21 [...] 01-03 00:00: 00 01-21 00:00 :00 No [id number] Per instruc tions Per instructio ns (route: oral) Med Classific ation: Anti-Infe ctive Agents atorvastati n 40 mg tablet 12-27 00:00: 00 Yes [id number] CHOLESTEROL 1 tablet BEDTIME 1 tablet BEDTIME (route: oral) Med Classific ation: Cardiovas cular Therapy Agents omeprazole 40 mg capsule,del ayed release 12-27 00:00: 00 Yes [id number] GERD 1 capsule DAILY 1 capsule DAILY (route: oral) Med Classific ation: Gastroint estinal Therapy Agents acyclovir 800 mg tablet 12-21 00:00: 00 Yes [id number] ANTI INFECTION 1 tablet 2 TIMES DAILY 1 tablet 2 TIMES DAILY (route: oral) Med Classific ation: Anti-Infe ctive Agents potassium chloride ER 20 mEq tablet,exte nded release(par t/cryst) 12-21 00:00: 00 Yes [id number] SUPPLEMENT 1 tablet DAILY 1 tablet DAILY (route: oral) Med Classific ation: Electroly te Balance-N utritiona l Products pregabalin 50 mg capsule 12-05 00:00: 00 Yes [id number] NERVE PAIN 1 capsule 2 TIMES DAILY 1 capsule 2 TIMES DAILY (route: oral) Med Classific ation: Central Nervous System Agents amitriptyli ne 25 mg tablet 01-21 00:00: 00 Yes [id number] DEPRESSION 1 tablet BEDTIME 1 tablet BEDTIME (route: oral) Med Classific ation: Central Nervous System Agents Aspirin Childrens 81 mg chewable tablet 01-21 00:00: 00 Yes [id number] HEART 1 tablet DAILY 1 tablet DAILY (route: oral) Med Classific ation: Hematolog ical Agents bisoprolol fumarate 5 mg tablet 01-21 00:00: 00 Yes [id number] BLOOD PRESSURE 1 tablet DAILY 1 tablet DAILY (route: oral) Med Classific ation: Cardiovas cular Therapy Agents hydrochloro thiazide 25 mg tablet 01-21 00:00: 00 Yes [id number] BLOOD PRESSURE 1 tablet DAILY 1 tablet DAILY (route: oral) Med Classific ation: Cardiovas cular Therapy Agents Jardiance 10 mg tablet 01-21 00:00: 00 Yes [id number] T2DM 1 tablet DAILY 1 tablet DAILY (route: oral) Med Classific ation: Endocrine levothyroxi ne 75 mcg tablet 01-21 00:00: 00 Yes [id number] THYROID 1 tablet DAILY 1 tablet DAILY (route: oral) Med Classific ation: Endocrine losartan 100 mg tablet 01-21 00:00: 00 Yes [id number] BLOOD PRESSURE 1 tablet DAILY 1 tablet DAILY (route: oral) Med Classific ation: Cardiovas cular Therapy Agents tamsulosin 0.4 mg capsule 01-21 00:00: 00 Yes [id number] PROSTATE 1 capsule DAILY 1 capsule DAILY (route: oral) Med Classific ation: Genitouri nary Therapy Xarelto 20 mg tablet 01-21 00:00: 00 Yes [id number] HEART 1 tablet DAILY 1 tablet DAILY (route: oral) Med Classific ation: Hematolog ical Agents hydrocodone 5 mg-acetamin ophen 325 mg tablet 01-22 00:00: 00 Yes [id number] PAIN 1 tablet EVERY 6 HOURS 1 tablet EVERY 6 HOURS (route: oral) Med Classific ation: Analgesic , Anti-infl ammatory or Antipyret ic tetracyclin e 250 mg tablet 01-21 00:00: 00 Yes [id number] ANTIBIOTIC 250 tablet EVERY 6 HOURS 250 [...] TO EVALUATE, OBSERVE / ASSESS, AND MONITOR, ROUTER MACHINE OPERATOR TO OBSERVE AND MONITOR, PROVIDE SKILLED THERAPEUTIC INTERVENTION, ACTIVITY, EDUCATION, AND TRAINING TO ADDRESS; [code = AGENCY MAY PERFORM A RESUMPTION OF CARE VISIT FOLLOWING ANY HOSPITAL ADMISSION. PT TO EVALUATE, OBSERVE / ASSESS, AND MONITOR, ROUTER MACHINE OPERATOR TO OBSERVE AND MONITOR, PROVIDE SKILLED THERAPEUTIC INTERVENTION, ACTIVITY, EDUCATION, AND TRAINING TO ADDRESS;] Future Scheduled Test SIT TO/FRO M STAND TRANSFERS (PT/ROUTER MACHINE OPERATOR) [code = SIT TO/FROM STAND TRANSFERS (PT/ROUTER MACHINE OPERATOR)] Future Scheduled Test PT/ROUTER MACHINE OPERATOR TO PROVIDE GAIT TRAINING FOR IMPROVED MOBILITY AND /OR TO NORMALIZE GAIT PATTERN [code = PT/ROUTER MACHINE OPERATOR TO PROVIDE GAIT TRAINING FOR IMPROVED MOBILITY AND /OR TO NORMALIZE GAIT PATTERN] Future Scheduled Test NEUROMUSCU LAR RE-EDUCATION / BALANCE / POSTURAL CONTROL (PT) [code = NEUROMUSCULAR RE-EDUCATION / BALANCE / POSTURAL CONTROL (PT)] Future Scheduled Test THERAPEUTI C EXERCISES AND ESTABLISHING A HOME EXERCISE PROGRAM (PT/ROUTER MACHINE OPERATOR) [code = THERAPEUTIC EXERCISES AND ESTABLISHING A HOME EXERCISE PROGRAM (PT/ROUTER MACHINE OPERATOR)] Future Scheduled Test PT/ROUTER MACHINE OPERATOR TO IDENTIFY FALL RISK FACTORS; EDUCATE THE PATIENT/CAREGIVER ON WAYS TO REDUCE FALL RISK FACTORS AND ESTABLISH HOME EXERCISE PROGRAM TO MINIMIZE FALL RISK. MAY TEACH THE PATIENT FLOOR RECOVERY WHEN CLINICALLY APPROPRIATE [code = PT/ROUTER MACHINE OPERATOR TO IDENTIFY FALL RISK FACTORS; EDUCATE THE PATIENT/CAREGIVER ON WAYS TO REDUCE FALL RISK FACTORS AND ESTABLISH HOME EXERCISE PROGRAM TO MINIMIZE FALL RISK. MAY TEACH THE PATIENT FLOOR RECOVERY WHEN CLINICALLY APPROPRIATE] Future Scheduled Test PT / ROUTER MACHINE OPERATOR T O MONITOR AND EDUCATE ON OXYGEN SATURATION DURING ADLS/IADLS, NOTIFY PHYSICIAN AND/OR THE RN CLINICAL QUALITY TESTER FOR PHYSICIAN NOTIFICATION AND IF O2 SATS BELOW PHYSICIAN ORDERED PARAMETERS AFTER 10 MIN OF REST [code = PT / ROUTER MACHINE OPERATOR TO MONITOR AND EDUCATE ON OXYGEN SATURATION DURING ADLS/IADLS, NOTIFY PHYSICIAN AND/OR THE RN CLINICAL QUALITY TESTER FOR PHYSICIAN NOTIFICATION AND IF O2 SATS BELOW PHYSICIAN ORDERED PARAMETERS AFTER 10 MIN OF REST] Future Scheduled Test PT / ROUTER MACHINE OPERATOR T O INSTRUCT PATIENT/CAREGIVER ON RISK FOR HOSPITALIZATION/EMERGENCY ROOM VISITS, TEACH SIGNS AND SYMPTOMS THAT PUT PATIENT AT RISK, WHEN TO NOTIFY NURSE/PHYSICIAN OF COMPLICATIONS/DECLINE, AND WHEN TO CALL 911. [code = PT / ROUTER MACHINE OPERATOR TO INSTRUCT PATIENT/CAREGIVER ON RISK FOR HOSPITALIZATION/EMERGENCY ROOM VISITS, TEACH SIGNS AND SYMPTOMS THAT PUT PATIENT AT RISK, WHEN TO NOTIFY NURSE/PHYSICIAN OF COMPLICATIONS/DECLINE, AND WHEN TO CALL 911.] Future Scheduled Test PT / ROUTER MACHINE OPERATOR T O MONITOR FOR HYPO/HYPERGLYCEMIA AND CONDUCT ROUTINE FOOT INSPECTIONS. RECORD PATIENT REPORTED BLOOD SUGAR LEVELS AND NOTIFY PHYSICIAN AND/OR THE RN CLINICAL QUALITY TESTER FOR PHYSICIAN NOTIFICATION IF BLOOD SUGAR LEVELS ARE OUTSIDE ORDERED PARAMETERS. TEACH PATIENT/CAREGIVER ON DAILY FOOT INSPECTIONS [code = PT / ROUTER MACHINE OPERATOR TO MONITOR FOR HYPO/HYPERGLYCEMIA AND CONDUCT ROUTINE FOOT INSPECTIONS. RECORD PATIENT REPORTED BLOOD SUGAR LEVELS AND NOTIFY PHYSICIAN AND/OR THE RN CLINICAL QUALITY TESTER FOR PHYSICIAN NOTIFICATION IF BLOOD SUGAR LEVELS ARE OUTSIDE ORDERED PARAMETERS. TEACH PATIENT/CAREGIVER ON DAILY FOOT INSPECTIONS] Future Scheduled Test SKILLED NU RSING TO EVALUATE FOR PATHOLOGY MANAGEMENT [code = RETIREMENT TO EVALUATE FOR PATHOLOGY MANAGEMENT] Future Scheduled Test RN TO OBSE RVE, ASSESS, EVALUATE, AND DEVELOP AN INDIVIDUALIZED PLAN OF CARE. AGENCY MAY ACCEPT ORDERS FROM CONSULTING PHYSICIANS DR KRISTEN DIEHL TO OBSERVE AND ASSESS, COMPLETIONS MANAGER/BLUNGER TO OBSERVE FOR RISK FOR FALLS AND INSTRUCT IN FALL PREVENTION, HOME SAFETY, MEDICATION MANAGEMENT, INFECTION PREVENTION, AND NUTRITION MANAGEMENT. RN/COMPLETIONS MANAGER/BLUNGER NURSE MAY PERFORM O2 SATURATION LEVEL ON ADMISSION AND PRN FOR SOB FOR RN TO ASSESS/COMPLETIONS MANAGER TO OBSERVE PATIENT, WITH NOTIFICATION TO THE PHYSICIAN IF SATURATION IS 90% IN THE ABSENCE OF MORE SPECIFIC PARAMETERS FROM THE PHYSICIAN. AGENCY MAY PERFORM A RESUMPTION OF CARE VISIT FOLLOWING ANY HOSPITAL ADMISSION. RN/COMPLETIONS MANAGER/BLUNGER TO MONITOR CO-MORBID CONDITIONS LISTED ON THE PLAN OF CARE AND ANY NEW CONDITIONS THAT PRESENT THEMSELVES DURING THIS EPISODE TO IDENTIFY CHANGES AND INTERVENE TO MINIMIZE COMPLICATIONS. MEDICATION MANAGEMENT; RN/COMPLETIONS MANAGER/BLUNGER TO REVIEW MEDICATIONS FOR INTERACTIONS, EFFECTIVENESS OF DRUG THERAPY, AND SIGNS/SYMPTOMS OF ADVERSE REACTIONS. MAY INSTRUCT AND REINFORCE MEDICATION TEACHING RELATED TO THE USE OF MEDICATIONS, DOSAGE, FREQUENCY, PURPOSE, SIDE EFFECTS, AND TO REPORT COMPLICATIONS. FALL REDUCTION MANAGEMENT; RN TO ASSESS AND OBSERVE, COMPLETIONS MANAGER/BLUNGER TO OBSERVE FALL RISK FACTORS AND EDUCATE PATIENT/CAREGIVER ON STRATEGIES TO MINIMIZE THE RISK OF FALLING. RN/COMPLETIONS MANAGER/BLUNGER TO PERFORM/TEACH PATIENT/CAREGIVER WOUND CARE TO LEFT [...] DR KRISTEN DIEHL TO OBSERVE AND ASSESS, COMPLETIONS MANAGER/BLUNGER TO OBSERVE FOR RISK FOR FALLS AND INSTRUCT IN FALL PREVENTION, HOME SAFETY, MEDICATION MANAGEMENT, INFECTION PREVENTION, AND NUTRITION MANAGEMENT. RN/COMPLETIONS MANAGER/BLUNGER NURSE MAY PERFORM O2 SATURATION LEVEL ON ADMISSION AND PRN FOR SOB FOR RN TO ASSESS/COMPLETIONS MANAGER TO OBSERVE PATIENT, WITH NOTIFICATION TO THE PHYSICIAN IF SATURATION IS 90% IN THE ABSENCE OF MORE SPECIFIC PARAMETERS FROM THE PHYSICIAN. AGENCY MAY PERFORM A RESUMPTION OF CARE VISIT FOLLOWING ANY HOSPITAL ADMISSION. RN/COMPLETIONS MANAGER/BLUNGER TO MONITOR CO-MORBID CONDITIONS LISTED ON THE PLAN OF CARE AND ANY NEW CONDITIONS THAT PRESENT THEMSELVES DURING THIS EPISODE TO IDENTIFY CHANGES AND INTERVENE TO MINIMIZE COMPLICATIONS. MEDICATION MANAGEMENT; RN/COMPLETIONS MANAGER/BLUNGER TO REVIEW MEDICATIONS FOR INTERACTIONS, EFFECTIVENESS OF DRUG THERAPY, AND SIGNS/SYMPTOMS OF ADVERSE REACTIONS. MAY INSTRUCT AND REINFORCE MEDICATION TEACHING RELATED TO THE USE OF MEDICATIONS, DOSAGE, FREQUENCY, PURPOSE, SIDE EFFECTS, AND TO REPORT COMPLICATIONS. FALL REDUCTION MANAGEMENT; RN TO ASSESS AND OBSERVE, COMPLETIONS MANAGER/BLUNGER TO OBSERVE FALL RISK FACTORS AND EDUCATE PATIENT/CAREGIVER ON STRATEGIES TO MINIMIZE THE RISK OF FALLING. RN/COMPLETIONS MANAGER/BLUNGER TO PERFORM/TEACH PATIENT/CAREGIVER WOUND CARE TO LEFT [...] End Date/Time Encounter Type Admission Type Attending [facility] Care Facility Care Department Encounter ID Discharge Date Discharge Status Discharge Condition Discharge Reason Percent Goals Met 2025-01-21 00:00:00 2025-03-21 00:00:00 Outpatient NEW ADMISSION TIFFANY BOLANOS [facility] [id number] 2025-03-21 00:00:00 DISCHARGE TO HOME OR SELF CARE INDEPENDEN T WITH USE OF ASSISTIVE DEVICE HH OR PAL- GOALS MET 90.91
--- OUTSIDE RECORDS SUMMARY | 2025-03-20 20:00 | XMS_ITS | Clinical Summary ---
Author Organization Unknown Care Team Providers Care Tier In Name Role Phone KRISTEN MANJARREZ, RAÚL Unavailable Unavailable WILY PT, RICHA Unavailable Unavailable PHILOMENA RUBBER GRINDER, ZULY Unavailable Unavailable CICI RN, TIFFANY Unavailable Unavailable Payers Payer Name Policy Type Policy Number Effective Date Expira tion Date MEDICARE.PAGEIR[facility] [id number] Problems Condition Name Condition Details Condition Category [...] 01-21 00:00: 00 ATHSCL HEART DISEASE OF [place] CORONARY ARTERY W/O ANG PCTRS Active 01-21 [...] HYPERLIPIDEM IA, UNSPECIFIED Active 01-21 00:00: 00 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 (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 OF ASPIRIN Active 01-21 00:00: 00 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 (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 OF ANTICOAGULAN TS Active 01-21 [...] 01-03 00:00: 00 01-21 00:00 :00 No [id number] Per instruc tions Per instructio ns (route: oral) Med Classific ation: Anti-Infe ctive Agents atorvastati n 40 mg tablet 12-27 00:00: 00 Yes [id number] CHOLESTEROL 1 tablet BEDTIME 1 tablet BEDTIME (route: oral) Med Classific ation: Cardiovas cular Therapy Agents omeprazole 40 mg capsule,del ayed release 12-27 00:00: 00 Yes [id number] GERD 1 capsule DAILY 1 capsule DAILY (route: oral) Med Classific ation: Gastroint estinal Therapy Agents acyclovir 800 mg tablet 12-21 00:00: 00 Yes [id number] ANTI INFECTION 1 tablet 2 TIMES DAILY 1 tablet 2 TIMES DAILY (route: oral) Med Classific ation: Anti-Infe ctive Agents potassium chloride ER 20 mEq tablet,exte nded release(par t/cryst) 12-21 00:00: 00 Yes [id number] SUPPLEMENT 1 tablet DAILY 1 tablet DAILY (route: oral) Med Classific ation: Electroly te Balance-N utritiona l Products pregabalin 50 mg capsule 12-05 00:00: 00 Yes [id number] NERVE PAIN 1 capsule 2 TIMES DAILY 1 capsule 2 TIMES DAILY (route: oral) Med Classific ation: Central Nervous System Agents amitriptyli ne 25 mg tablet 01-21 00:00: 00 Yes [id number] DEPRESSION 1 tablet BEDTIME 1 tablet BEDTIME (route: oral) Med Classific ation: Central Nervous System Agents Aspirin Childrens 81 mg chewable tablet 01-21 00:00: 00 Yes [id number] HEART 1 tablet DAILY 1 tablet DAILY (route: oral) Med Classific ation: Hematolog ical Agents bisoprolol fumarate 5 mg tablet 01-21 00:00: 00 Yes [id number] BLOOD PRESSURE 1 tablet DAILY 1 tablet DAILY (route: oral) Med Classific ation: Cardiovas cular Therapy Agents hydrochloro thiazide 25 mg tablet 01-21 00:00: 00 Yes [id number] BLOOD PRESSURE 1 tablet DAILY 1 tablet DAILY (route: oral) Med Classific ation: Cardiovas cular Therapy Agents Jardiance 10 mg tablet 01-21 00:00: 00 Yes [id number] T2DM 1 tablet DAILY 1 tablet DAILY (route: oral) Med Classific ation: Endocrine levothyroxi ne 75 mcg tablet 01-21 00:00: 00 Yes [id number] THYROID 1 tablet DAILY 1 tablet DAILY (route: oral) Med Classific ation: Endocrine losartan 100 mg tablet 01-21 00:00: 00 Yes [id number] BLOOD PRESSURE 1 tablet DAILY 1 tablet DAILY (route: oral) Med Classific ation: Cardiovas cular Therapy Agents tamsulosin 0.4 mg capsule 01-21 00:00: 00 Yes [id number] PROSTATE 1 capsule DAILY 1 capsule DAILY (route: oral) Med Classific ation: Genitouri nary Therapy Xarelto 20 mg tablet 01-21 00:00: 00 Yes [id number] HEART 1 tablet DAILY 1 tablet DAILY (route: oral) Med Classific ation: Hematolog ical Agents hydrocodone 5 mg-acetamin ophen 325 mg tablet 01-22 00:00: 00 Yes [id number] PAIN 1 tablet EVERY 6 HOURS 1 tablet EVERY 6 HOURS (route: oral) Med Classific ation: Analgesic , Anti-infl ammatory or Antipyret ic tetracyclin e 250 mg tablet 01-21 00:00: 00 Yes [id number] ANTIBIOTIC 250 tablet EVERY 6 HOURS 250 [...] TO EVALUATE, OBSERVE / ASSESS, AND MONITOR, RUBBER GRINDER TO OBSERVE AND MONITOR, PROVIDE SKILLED THERAPEUTIC INTERVENTION, ACTIVITY, EDUCATION, AND TRAINING TO ADDRESS; [code = AGENCY MAY PERFORM A RESUMPTION OF CARE VISIT FOLLOWING ANY HOSPITAL ADMISSION. PT TO EVALUATE, OBSERVE / ASSESS, AND MONITOR, RUBBER GRINDER TO OBSERVE AND MONITOR, PROVIDE SKILLED THERAPEUTIC INTERVENTION, ACTIVITY, EDUCATION, AND TRAINING TO ADDRESS;] Future Scheduled Test SIT TO/FRO M STAND TRANSFERS (PT/RUBBER GRINDER) [code = SIT TO/FROM STAND TRANSFERS (PT/RUBBER GRINDER)] Future Scheduled Test PT/RUBBER GRINDER TO PROVIDE GAIT TRAINING FOR IMPROVED MOBILITY AND /OR TO NORMALIZE GAIT PATTERN [code = PT/RUBBER GRINDER TO PROVIDE GAIT TRAINING FOR IMPROVED MOBILITY AND /OR TO NORMALIZE GAIT PATTERN] Future Scheduled Test NEUROMUSCU LAR RE-EDUCATION / BALANCE / POSTURAL CONTROL (PT) [code = NEUROMUSCULAR RE-EDUCATION / BALANCE / POSTURAL CONTROL (PT)] Future Scheduled Test THERAPEUTI C EXERCISES AND ESTABLISHING A HOME EXERCISE PROGRAM (PT/RUBBER GRINDER) [code = THERAPEUTIC EXERCISES AND ESTABLISHING A HOME EXERCISE PROGRAM (PT/RUBBER GRINDER)] Future Scheduled Test PT/RUBBER GRINDER TO IDENTIFY FALL RISK FACTORS; EDUCATE THE PATIENT/CAREGIVER ON WAYS TO REDUCE FALL RISK FACTORS AND ESTABLISH HOME EXERCISE PROGRAM TO MINIMIZE FALL RISK. MAY TEACH THE PATIENT FLOOR RECOVERY WHEN CLINICALLY APPROPRIATE [code = PT/RUBBER GRINDER TO IDENTIFY FALL RISK FACTORS; EDUCATE THE PATIENT/CAREGIVER ON WAYS TO REDUCE FALL RISK FACTORS AND ESTABLISH HOME EXERCISE PROGRAM TO MINIMIZE FALL RISK. MAY TEACH THE PATIENT FLOOR RECOVERY WHEN CLINICALLY APPROPRIATE] Future Scheduled Test PT / RUBBER GRINDER T O MONITOR AND EDUCATE ON OXYGEN SATURATION DURING ADLS/IADLS, NOTIFY PHYSICIAN AND/OR THE RN CLINICAL HEALTH TECHNICIAN HEARING FOR PHYSICIAN NOTIFICATION AND IF O2 SATS BELOW PHYSICIAN ORDERED PARAMETERS AFTER 10 MIN OF REST [code = PT / RUBBER GRINDER TO MONITOR AND EDUCATE ON OXYGEN SATURATION DURING ADLS/IADLS, NOTIFY PHYSICIAN AND/OR THE RN CLINICAL HEALTH TECHNICIAN HEARING FOR PHYSICIAN NOTIFICATION AND IF O2 SATS BELOW PHYSICIAN ORDERED PARAMETERS AFTER 10 MIN OF REST] Future Scheduled Test PT / RUBBER GRINDER T O INSTRUCT PATIENT/CAREGIVER ON RISK FOR HOSPITALIZATION/EMERGENCY ROOM VISITS, TEACH SIGNS AND SYMPTOMS THAT PUT PATIENT AT RISK, WHEN TO NOTIFY NURSE/PHYSICIAN OF COMPLICATIONS/DECLINE, AND WHEN TO CALL 911. [code = PT / RUBBER GRINDER TO INSTRUCT PATIENT/CAREGIVER ON RISK FOR HOSPITALIZATION/EMERGENCY ROOM VISITS, TEACH SIGNS AND SYMPTOMS THAT PUT PATIENT AT RISK, WHEN TO NOTIFY NURSE/PHYSICIAN OF COMPLICATIONS/DECLINE, AND WHEN TO CALL 911.] Future Scheduled Test PT / RUBBER GRINDER T O MONITOR FOR HYPO/HYPERGLYCEMIA AND CONDUCT ROUTINE FOOT INSPECTIONS. RECORD PATIENT REPORTED BLOOD SUGAR LEVELS AND NOTIFY PHYSICIAN AND/OR THE RN CLINICAL HEALTH TECHNICIAN HEARING FOR PHYSICIAN NOTIFICATION IF BLOOD SUGAR LEVELS ARE OUTSIDE ORDERED PARAMETERS. TEACH PATIENT/CAREGIVER ON DAILY FOOT INSPECTIONS [code = PT / RUBBER GRINDER TO MONITOR FOR HYPO/HYPERGLYCEMIA AND CONDUCT ROUTINE FOOT INSPECTIONS. RECORD PATIENT REPORTED BLOOD SUGAR LEVELS AND NOTIFY PHYSICIAN AND/OR THE RN CLINICAL HEALTH TECHNICIAN HEARING FOR PHYSICIAN NOTIFICATION IF BLOOD SUGAR LEVELS ARE OUTSIDE ORDERED PARAMETERS. TEACH PATIENT/CAREGIVER ON DAILY FOOT INSPECTIONS] Future Scheduled Test SKILLED NU RSING TO EVALUATE FOR PATHOLOGY MANAGEMENT [code = LONG TERM TO EVALUATE FOR PATHOLOGY MANAGEMENT] Future Scheduled Test RN TO OBSE RVE, ASSESS, EVALUATE, AND DEVELOP AN INDIVIDUALIZED PLAN OF CARE. AGENCY MAY ACCEPT ORDERS FROM CONSULTING PHYSICIANS DR KRISTEN DIEHL TO OBSERVE AND ASSESS, COLLISION MECHANIC/SAFETY INSTRUCTOR TO OBSERVE FOR RISK FOR FALLS AND INSTRUCT IN FALL PREVENTION, HOME SAFETY, MEDICATION MANAGEMENT, INFECTION PREVENTION, AND NUTRITION MANAGEMENT. RN/COLLISION MECHANIC/SAFETY INSTRUCTOR NURSE MAY PERFORM O2 SATURATION LEVEL ON ADMISSION AND PRN FOR SOB FOR RN TO ASSESS/COLLISION MECHANIC TO OBSERVE PATIENT, WITH NOTIFICATION TO THE PHYSICIAN IF SATURATION IS 90% IN THE ABSENCE OF MORE SPECIFIC PARAMETERS FROM THE PHYSICIAN. AGENCY MAY PERFORM A RESUMPTION OF CARE VISIT FOLLOWING ANY HOSPITAL ADMISSION. RN/COLLISION MECHANIC/SAFETY INSTRUCTOR TO MONITOR CO-MORBID CONDITIONS LISTED ON THE PLAN OF CARE AND ANY NEW CONDITIONS THAT PRESENT THEMSELVES DURING THIS EPISODE TO IDENTIFY CHANGES AND INTERVENE TO MINIMIZE COMPLICATIONS. MEDICATION MANAGEMENT; RN/COLLISION MECHANIC/SAFETY INSTRUCTOR TO REVIEW MEDICATIONS FOR INTERACTIONS, EFFECTIVENESS OF DRUG THERAPY, AND SIGNS/SYMPTOMS OF ADVERSE REACTIONS. MAY INSTRUCT AND REINFORCE MEDICATION TEACHING RELATED TO THE USE OF MEDICATIONS, DOSAGE, FREQUENCY, PURPOSE, SIDE EFFECTS, AND TO REPORT COMPLICATIONS. FALL REDUCTION MANAGEMENT; RN TO ASSESS AND OBSERVE, COLLISION MECHANIC/SAFETY INSTRUCTOR TO OBSERVE FALL RISK FACTORS AND EDUCATE PATIENT/CAREGIVER ON STRATEGIES TO MINIMIZE THE RISK OF FALLING. RN/COLLISION MECHANIC/SAFETY INSTRUCTOR TO PERFORM/TEACH PATIENT/CAREGIVER WOUND CARE TO LEFT [...] DR KRISTEN DIEHL TO OBSERVE AND ASSESS, COLLISION MECHANIC/SAFETY INSTRUCTOR TO OBSERVE FOR RISK FOR FALLS AND INSTRUCT IN FALL PREVENTION, HOME SAFETY, MEDICATION MANAGEMENT, INFECTION PREVENTION, AND NUTRITION MANAGEMENT. RN/COLLISION MECHANIC/SAFETY INSTRUCTOR NURSE MAY PERFORM O2 SATURATION LEVEL ON ADMISSION AND PRN FOR SOB FOR RN TO ASSESS/COLLISION MECHANIC TO OBSERVE PATIENT, WITH NOTIFICATION TO THE PHYSICIAN IF SATURATION IS 90% IN THE ABSENCE OF MORE SPECIFIC PARAMETERS FROM THE PHYSICIAN. AGENCY MAY PERFORM A RESUMPTION OF CARE VISIT FOLLOWING ANY HOSPITAL ADMISSION. RN/COLLISION MECHANIC/SAFETY INSTRUCTOR TO MONITOR CO-MORBID CONDITIONS LISTED ON THE PLAN OF CARE AND ANY NEW CONDITIONS THAT PRESENT THEMSELVES DURING THIS EPISODE TO IDENTIFY CHANGES AND INTERVENE TO MINIMIZE COMPLICATIONS. MEDICATION MANAGEMENT; RN/COLLISION MECHANIC/SAFETY INSTRUCTOR TO REVIEW MEDICATIONS FOR INTERACTIONS, EFFECTIVENESS OF DRUG THERAPY, AND SIGNS/SYMPTOMS OF ADVERSE REACTIONS. MAY INSTRUCT AND REINFORCE MEDICATION TEACHING RELATED TO THE USE OF MEDICATIONS, DOSAGE, FREQUENCY, PURPOSE, SIDE EFFECTS, AND TO REPORT COMPLICATIONS. FALL REDUCTION MANAGEMENT; RN TO ASSESS AND OBSERVE, COLLISION MECHANIC/SAFETY INSTRUCTOR TO OBSERVE FALL RISK FACTORS AND EDUCATE PATIENT/CAREGIVER ON STRATEGIES TO MINIMIZE THE RISK OF FALLING. RN/COLLISION MECHANIC/SAFETY INSTRUCTOR TO PERFORM/TEACH PATIENT/CAREGIVER WOUND CARE TO LEFT [...] 2025-03-21 00:00:00 Outpatient NEW ADMISSION TIFFANY BOLANOS [facility] [id number] 2025-03-21 00:00:00 DISCHARGE TO HOME OR SELF CARE INDEPENDEN T WITH USE OF ASSISTIVE DEVICE HH OR PAL- GOALS MET 90.91
--- OUTSIDE RECORDS SUMMARY | 2025-03-26 07:30 | XMS_ITS ---
Author Organization [facility] Address [address] [id number] Care Team Providers Care Clinical Operations Leader Name Role Phone Nas Shea Primary Care Provider Jessie Velez Unavailable [phone] Allergies No Known Allergies REASON FOR VISIT [...] Encounters Encounter Location Date Provider Diagnosis [facility] [address] [place] [address] [address] [place], [place] [phone] 03/26/2025 Jessie Velez Hypotension I95.9 ; Edema [...] Provider Name:Nas Solis, 07/02/2025 09:15:00 AM, 1210 [facility] 36 [facility], [address], [place], [place], [phone], Progress Notes * ANGIE SWANOB: 0 (74 yo M)Acc No.[id number]:03/26/2025 Progress Notes Patient: Henry SHIRAJAGRUTI MORALESENCE Provider: GABRIELLE Sanders :1950 A ge:74 Y S ex:Male Date:03/26/2025 Address:[address] [place] [address] LUIZ KAMINSKI , [facility]-[id number] Pcp:Nas Shea Subjective: * Chief Complaints: * [...] diuretics adjusted. He has not seen a tieing machine operator. During walking test today in clinic [...] stents 03/08/07, Open Heart Surgery-Dr Mott @ [facility] 12/2015, thoracentesis 12/2015, Laparoscopic cholecystectomy - Dr. Wallace 09/06/16, cardiac defibirilltor placed-Dr Yates 07/04/2020, cataract surgery-right eye 12/2020, Knee Surgery - Due to Infection -01/2025. * Hospitalization/Major Diagno stic Procedure: H ER-suture to pinky finger of left hand 09/25/09, C-scope - Dr. Kimball 09/2013, [facility] ER-Afib 01/2016, [facility] pancreat[facility] 09/02/16, Left heart cath/[place]/ normal flow of revascularized vessels 02/2017, [facility]-tachycardia 07/02 to 07/03/2020, [facility] UTC - Fall 11/14/2023. * Family [...] AD , alert , pleasant; presents with medicare nurse in a wheelchair. H eart: R RR. [...] * Images: Billing Information: * Visit Code: 87480 Office Visit, Est Pt., Level 3. * Procedure Codes: G2211 Complex e/m visit add on. G8420 BMI<30 AND >=22 CALC & DOCU. G8950 PREHTN/HTN BP DOC INDCD F/U DOC. G8752 MOST RECENT SYSTOLIC BP < 140MM HG. G8754 MOST RECENT DIASTOLIC BP < 90MM HG. * Electronic signature of Dahlia Velez APRN on 05/14/2025 at 07:40 AM EDT Sign off status: Pending * Provider: GABRIELLE Sanders Date: 0 03/26/2025 Generated for Galilea lozano/Ken/eTrehanitting on: 0 05/14/2025 07:40 AM EDT History and Physical Notes * [...] , alert , pleasa nt; presents with medicare nurse in a wheelchair Neurologic Exam: alert and oriented
--- OUTSIDE RECORDS SUMMARY | 2025-04-18 05:00 | XMS_ITS ---
Author Organization [facility] Address [facility] 36 [facility] [address] [place] [phone] Care Team Providers Care Inseam Trimmer Name Role Phone Nas Shea Primary Care Provider REASON FOR VISIT 6 months Encounters Encounter Location Date Provider Diagnosis [facility] 1210 [facility] 36 [facility] [address] [place] [id number] 04/18/2025 Nas Shea Plan Of Treatment Next Appt Details Provider Name:Nas Solis, 07/02/2025 09:15:00 AM, 1210 [facility] 36 [facility], [address], [place], [place], [phone], Progress Notes * ANGIE SWANOB: 0 (74 yo M)Acc No.[id number]:04/18/2025 Progress Notes Patient: Henry KEV CHEUNG Provider: Nas Shea M.D. :1950 A ge:74 Y S ex:Male Date:04/18/2025 Address:[address] [place] [address] TODD KAMINSKI , [place], [id number] Subjective: * Chief Complaints: * 1 . 6 months. * Medical History: Objective: * Vitals: Assessment: Plan: * Treatment: * Images: Billing Information: * Visit Code: * Procedure Codes: * Electronic signature of Nas Shea MD on 05/14/2025 at 07:41 AM EDT Sign off status: Pending * Provider: Nas Shea M.D. Date: 0 04/18/2025 Generated for Galilea lozano/Ken/Lynn on: 0 05/14/2025 07:41 AM EDT
--- OUTSIDE RECORDS SUMMARY | 2025-04-25 07:30 | XMS_ITS ---
Author Organization [facility] Address [address] [phone] Care Team Providers Care Bundle Wrapper Name Role Phone Nas Shea Primary Care Provider Allergies No Known Allergies REASON FOR VISIT [...] Problem Status W/U Status Risk Notes Problem Pacemaker (Z95.0) Active confirmed Vital Signs Blood pressure systolic 112 mm Hg 04/25/20 Blood pressure diastolic 64 mm Hg 025 Heart Rate 78 /min 04/25/2025 Height 72 in 04/25/2025 Weight 187 lbs 04/25/2025 BMI 25.36 kg/m2 04/25/2025 Encounters Encounter Location Date Provider Diagnosis [facility] [address] [facility] [address] [place], [place] [phone] 04/25/2025 R Jesus Monse Pacemaker Z95.0 ; [...] Up: 3 Months, Reason: Provider Name:Nas Solis, 07/02/2025 09:15:00 AM, [address] [facility] [address] [facility], [address] , [place], [place], [phone], Progress Notes * ANGIE SWANOB: 0 (74 yo M)Acc No.[id number]:04/25/2025 Progress Notes Patient: KEV LUZ Provider: Nas Shea M.D. :1950 A ge:74 Y S ex:Male Date:04/25/2025 Address:[address] [place] [address] [place] , [id number] Subjective: * Chief Complaints: * 1 . Skin Tear on Left Arm Possibly Infected. * HPI: C ardiology: He had a permanent pacemaker placed yesterday by Dr. Yates. Xarelto is currently on hold. His Lasix dose was increased. He tells me the swat team member would like for him to wean off [...] hand 09/25/2009, C-scope - Dr. Kimball 09/2013, [facility] ER-Afib 01/2016, [facility]-Gallstone pancreatitis 09/02/2016, Left heart cath/[place]/ normal flow of revascularized vessels 02/2017, [facility]-tachycardia 07/02-12/2019, [facility] UTC - Fall 11/14/2023. * [...] ultiple myeloma - C90.00 9 . B MD 25.0-25.9,adult - Z68.25 ? Plan: * Treatment: 2. P eripheral neuropathy Continue Amitriptyline HCl Tablet, 50 MG, 1.5 tab(s), orally, once a day (at bedtime), Notes to Pharmacist: Instructed to wean by 2 tablet daily per month. Notes: Instructed to [...] * Images: Billing Information: * Visit Code: 65479 Office Visit, Est Pt., Level 4. * Procedure Codes: G2211 Complex e/m visit add on. 1036F TOBACCO NON-USER. G8420 BMI<30 AND >=22 CALC & DOCU. G8783 BP SCR PRFRM RCMDD DEFIND SCR INTVL. G8752 MOST RECENT SYSTOLIC BP < 140MM HG. G8754 MOST RECENT DIASTOLIC BP < 90MM HG. * Electronic signature of Nas Shea MD on 05/14/2025 at 07:40 AM EDT Sign off status: Pending * Provider: Nas Shea M.D. Date: 0 04/25/2025 Generated for Galilea lozano/Ken/Lynn on: 0 05/14/2025 07:40 AM EDT History [...] sterile dressing. Cardiology He tells me the swat team member would like for him to wean off [...]
--- OUTSIDE RECORDS SUMMARY | 2025-05-14 07:40 | XMS_ITS | Encounter Summary ---
Author Organization Healthcare Address [address] [place] [address] Care Team Providers Care Link Machine Operator Name Role Phone Kai Shea MD Primary Care Provider [phone]- [phone] Jessica Perales DO Unavailable [phone] Encounter Details Date Type Department Care Team (Late st Contact Info) Description 12/31/[address] [facility] [address] [place] [address] Valdo Carrillo, CARLOS [address] [place] [address] Encounter for general adult medical examination without [...] place to sleep or slept in a mcfp (including now)? No 05/04/2024 PHQ-9 Answer Date [...] drink first t vane in the morning (EYE-RETAIL SHIFT LEADER) to steady your nerves or to get [...] Appointment [facility] Radiology [address] [place] [address] documented as of this encounter Procedures Procedure [...] LAB HEMATOLOGY METHOD 01/01/2025 2:08 PM EST [facility] Specimen Source, Body Fluid LAB HEMATOLOGY METHOD 01/01/2025 2:08 PM EST [facility] Clinical Diagnosis, Body Fluid Joint fluid. Neuropathy. History of plasma cell neoplasm and Parkinson's LAB HEMATOLOGY METHOD 01/01/2025 2:08 PM EST [facility] Interpretation , Body Fluid No evidence of malignancy; acute inflammatory cells. See comment A resident was involved in the service. I attest I examined the relevant preparations for the specimens and confirmed the diagnosis or interpretation. 01/01/2025 2:08 PM EST [facility] Pathologist Signature, Body Fluid 01/01/2025 2:08 PM EST [facility] Comment:Reviewed by: Prashanth Montiel MD LAB CP ASR DISCLAIMER Yes 01/01/2025 2:08 PM EST [facility] Joint Fluid 12/31/2024 3:15 PM EST 12/31/2024 6:01 PM EST Narrative [facility] - 01/01/2025 2:08 PM EST Correlation with microbiology studies is suggested. Valdo GONZALEZ LAB BODY FLUIDS AND STOOLS ORDERABLES Final Result [facility] [address] [place] [address] * (ABNORMAL) Body Fluid Cell Count w/ Diff (12/31/2024 3:15 PM EST) Color, Body fluid Yellow LAB HEMATOLOGY METHOD 12/31/2024 8:00 PM EST [facility] Appearance, Body fluid Cloudy(A) LAB HEMATOLOGY METHOD 12/31/2024 8:00 PM EST [facility] Volume, Body fluid 2.5 cc LAB HEMATOLOGY METHOD 12/31/2024 8:00 PM EST [facility] Fluid Container Specimen received in EDTA tube LAB HEMATOLOGY METHOD 12/31/2024 8:00 PM EST [facility] Red Blood Cell Count, Body fluid 5,000 uL LAB HEMATOLOGY METHOD 12/31/2024 8:00 PM EST [facility] Total Nucleated Cell Count, Body fluid 44,000 uL LAB HEMATOLOGY METHOD 12/31/2024 8:00 PM EST [facility] Neutrophils %, Body fluid 95 % LAB HEMATOLOGY METHOD 12/31/2024 8:00 PM EST [facility] Lymphocytes %, Body fluid 1 % LAB HEMATOLOGY METHOD 12/31/2024 8:00 PM [facility] Monocytes/Macro phages %, Body fluid 4 % LAB HEMATOLOGY METHOD 12/31/2024 8:00 PM [facility] Eosinophils %, Body fluid 0 % LAB HEMATOLOGY METHOD 12/31/2024 8:00 PM [facility] Lining/Mesothel ial Cells %, Body fluid 0 % LAB HEMATOLOGY METHOD 12/31/2024 8:00 PM EST [facility] Neutrophils Absolute (PMN), Body fluid 41,800 uL LAB HEMATOLOGY METHOD 12/31/2024 8:00 PM [facility] Lymphocytes Absolute, Body fluid 440 uL LAB HEMATOLOGY METHOD 12/31/2024 8:00 PM [facility] Monocytes/Macro phages Absolute, Body fluid 1,760 uL LAB HEMATOLOGY METHOD 12/31/2024 8:00 PM [facility] Eosinophils Absolute, Body fluid 0 uL LAB HEMATOLOGY METHOD 12/31/2024 8:00 PM EST [facility] Basophils Absolute, Body fluid 0 uL LAB HEMATOLOGY METHOD 12/31/2024 8:00 PM EST [facility] Lining/Mesothel ial Cells Absolute, Body fluid 0 uL LAB HEMATOLOGY METHOD 12/31/2024 8:00 PM EST [facility] Comment, Body fluid None LAB HEMATOLOGY METHOD 12/31/2024 8:00 PM EST [facility] Comment:This is an appended report. These results have been appended to a previously preliminary verified report. Basophils %, Body fluid 0 % LAB HEMATOLOGY METHOD 12/31/2024 8:00 PM EST [facility] Joint Fluid 12/31/2024 3:15 PM EST 12/31/2024 6:01 PM EST us Valdo GONZALEZ LAB BODY FLUIDS AN D STOOLS ORDERABLES NO SPECIMEN TYPE/SOURCE Final Result Performing Organization Address [facility] Co de Phone Number [facility] [address] [place] [address] * (ABNORMAL) Synovial fluid, crystal (12/31/2024 3:15 PM EST) Crystals, Joint Fluid Calcium Pyrophosphate Crystals Present(A) No Crystals Present 12/31/2024 11:06 PM EST [facility] Joint Fluid 12/31/2024 3:15 PM EST 12/31/2024 6:01 PM EST Narrative [facility] - 12/31/2024 11:06 PM EST Under compensated polarized light microscopy rhomboidal positively birefringent crystals are seen consistent with Calcium Pyrophosphate. The presence of steroid crystals may result in a false positive. Correlate results with recent history up to 2 months of steroid injection. us Valdo GONZALEZ LAB BODY FLUIDS AND STOOLS ORDERABLES Final Result Performing Organization Address [facility] Co de Phone Number [facility] [address] [place] [address] documented in this encounter Visit Diagnoses Diagnosis [...] documented as of this encounter Care Teams Link Machine Operator Relationship Specialty Start Date End Date aKi Shea MD [address] [place] [address] PCP - General 03/13/21 Jessica Perales DO [address] [place] [address] Resident Neurology 06/16/21 documented as of this encounter
--- OUTSIDE RECORDS SUMMARY | 2025-05-14 07:40 | XMS_ITS | Clinical Summary ---
Author Organization [facility] Address [address] [facility] [address] [place] [address] Phone Care Team Providers Care Technical Clerk Name Role Phone Unavailable Primary Care Provider [...] this topic Insurance FEDERAL [facility] FEDERAL MEDICARE [place] PART A AND B FEDERAL
--- OUTSIDE RECORDS SUMMARY | 2025-05-14 07:40 | XMS_ITS | Clinical Summary ---
Author Organization [facility] Address [address] [place] [address] Care Team Providers Care Brick Chimney Builder Name Role Phone Kai Shea MD Primary Care Provider [phone]- [phone] Jessica Perales DO Unavailable [phone] Allergies No known active allergies Medications atorvastatin [...] Type Department Care Team Description [facility] [place] [facility] [place] [address] Monica Sue MD from Last 3 Months Immunizations Immunization Administration Dates Next Due [employer]ics (deja mi) COVID-19 Vaccine (Purple Cap) 12 + 01/16/2021,12/24/2020 [...] drink first t vane in the morning (EYE-COATING MACHINE OPERATOR HELPER) to steady your nerves or to get [...] Appointment [facility] A Radiology [address] [place] [address] Health Maintenance Due Date Last Done Comments [facility]-Medicare Annual Wellness (AWV) 1950 [facility]-/Child/Adol SDOH Screenings 1950 [facility]-Zoster Vaccines (1 of 2) 1969 CT Colonography 1995 Colonoscopy 1995 FIT-DNA 1995 FIT 1995 FOBT 1995 Sigmoidoscopy 1995 [facility]-Colorectal Cancer Screening 1995 [facility]-RSV Vaccine: 60+ Years or (1 - Risk 60-74 years 1-dose series) 2010 [facility]-Pneumococcal Vaccine: 50+ Years (2 of 2 - PPSV23) 03/16/2019 01/19/2019 [id number] Vaccine ( season) 2024 10/08/2021, 01/16/2021, 12/24/2020 [...] Antibody Negative Negative 05/03/2024 5:39 PM EDT [facility] Blood Venous blood specimen / Unknown Venipuncture / Unknown 05/03/2024 4:48 PM EDT 05/03/2024 4:58 PM EDT us Rome Dominguez MD LAB BLOOD ORDERABLES Final Result Performing Organization Address City/State/[facility] Co de Phone Number HEALTHCARE LAB [address] [place] [address] from Last 3 Months or Most Recently Relevant to Health Maintenance Insurance [facility] [place] [address] Advance Directives Documents on File Type Date Recorded Patient Marketing Operations Specialist Expl anation Advance Directives and Living Will 05/04/2024 2:43 PM patient does not hav e an AD * Full Code (Latest Code Status on File) Date Activated Date Inactivated Comments 05/03/2024 10:21 PM 05/05/2024 2:20 PM Question Answer Comments Patient has decision-making capacity? Yes Care Teams Brick Chimney Builder Relationship Specialty Start Date End Date Kai Shea MD [address] [place] [address] PCP - General 03/13/21 Jessica Perales DO [address] [place] [address] Resident Neurology 06/16/21
--- OUTSIDE RECORDS SUMMARY | 2025-05-14 07:40 | XMS_ITS | Encounter Summary ---
Author Organization [place] [address] Care Team Providers Care Landing Worker Name Role Phone Unavailable Primary Care Provider Unavailabl e Encounter Details Date Type Department Care Team (Late st Contact Info) Description 01/07/2023 [facility] Only [facility] [id number] Barbara Bess MD [address] [place] [address] Social History Tobacco Use Types Packs/Day Years [...] AM EST) 01/07/2023 9:45 AM EST Narrative [facility] - 01/24/2023 5:22 PM EDT Requesting Provider: GIOVANNA Chaney Specimen = [id number] us Barbara Bess MD PATHOLOGY ORDERABLES Final Resul t [facility] [address] [place] [address] documented in this encounter Visit Diagnoses Not on filedocumented in this encounter
--- OUTSIDE RECORDS SUMMARY | 2025-05-14 07:40 | XMS_ITS | Encounter Summary ---
Author Organization Healthcare Address [address] [place] [address] Care Team Providers Care Squad Boss Name Role Phone Kai Shea MD Primary Care Provider [phone]- [phone] Jessica Perales DO Unavailable [phone] Encounter Details Date Type Department Care Team (Late st Contact Info) Description 11/05/2024 Orders Only [place] [facility] [address] [place] [address] Rome York, DO [address] [id number] Neuropathy Social History Tobacco Use Types Packs/Day [...] drink first t vane in the morning (EYE-PROVIDER RELATIONS MANAGER) to steady your nerves or to get [...] Appointment [facility] A Radiology [address] [place] [address] documented as of this encounter Visit Diagnoses Diagnosis Neuropathy Mononeuritis of unspecified site documented in this encounter Additional Health Concerns Assessment Noted Time A fall risk assessment has been complete d for the patient 12/19/2023 3:03 PM EST A Body Mass Index follow-up plan has been documented for the patient 05/05/2024 11:32 AM EDT documented as of this encounter Care Teams Squad Boss Relationship Specialty Start Date End Date Kai Shea MD [address] [place] [address] PCP - General 03/13/21 Jessica Perales DO [address] [place] [address] Resident Neurology 06/16/21 documented as of this encounter
--- OUTSIDE RECORDS SUMMARY | 2025-05-14 07:40 | XMS_ITS | Encounter Summary ---
Author Organization [facility] Address [address] [place] [address] Care Team Providers Care Dog Food Dough Mixer Name Role Phone Kai Shea MD Primary Care Provider [phone] Jessica Perales DO Unavailable [phone] Encounter Details Date Type Department Care Team (Late st Contact Info) Description 12/31/2024 Lab Requisition [facility] [address] [place] [address] Valdo Carrillo, CARLOS [address] [place] [address] Encounter for general adult medical examination without [...] place to sleep or slept in a fci (including now)? No 05/04/2024 PHQ-9 Answer Date [...] drink first t vane in the morning (EYE-TICKET ATTENDANT) to steady your nerves or to get [...] Appointment [facility] Radiology [address] [place] [address] documented as of this encounter Procedures Procedure Name Priority Date/Time Associated Diagnosis Comments BODY FLUID CULTURE AND GRAM STAIN Routine 12/31/2024 5:40 PM EST Encounter for general adult medical examination without abnormal findings documented in this encounter Results * (ABNORMAL) Body Fluid Culture and Gram Stain (12/31/2024 5:40 PM EST) Culture Light Growth 01/06/2025 10:47 AM EDT [facility] Culture Staphylococcus epidermidis(A) BASSAM 01/06/2025 10:47 AM EDT [facility] Comment: This isolate has been identified using the FDA Approved MCE-5 Development CA System The organism value for this result has been updated. These results have been appended to the previously preliminary verified report. Edited result: Previously reported as Gram positive cocci on 01/02/2025 at 0908 EST. Gram Stain Result Numerous Polymorphonuclear leukocytes(A) 01/06/2025 10:47 AM EDT [facility] Gram Stain Result Rare Gram positive cocci in pairs(A) 01/06/2025 10:47 AM EDT [facility] Joint Fluid Synovial fluid specimen / [...] LAB MICROBIOLOGY - GENERAL ORDERABLES Final Result [facility] [address] [place] [address] documented in this encounter Visit Diagnoses Diagnosis [...] documented as of this encounter Care Teams Dog Food Dough Mixer Relationship Specialty Start Date End Date Kai Shea MD [address] [place] [address] PCP - General 03/13/21 Jessica Perales DO [address] [place] [address] Resident Neurology 06/16/21 documented as of this encounter
--- OUTSIDE RECORDS SUMMARY | 2025-05-14 07:40 | XMS_ITS | Encounter Summary ---
Author Organization [place] [address] Care Team Providers Care Data Processing Clerk Name Role Phone Unavailable Primary Care Provider Unavailabl e Encounter Details Date Type Department Care Team (Late st Contact Info) Description 01/07/2023 [facility] Only [facility] [place] [phone] Barbara Bess MD [address] [place] [address] Social History Tobacco Use Types Packs/Day Years [...] AM EST) 01/07/2023 9:45 AM EST Narrative [facility] - 01/17/2023 1:28 PM EDT Requesting Provider: GIOVANNA Chaney Specimen = [id number] us Barbara Bess MD PATHOLOGY ORDERABLES Final Resul t [facility] [address] [place] [address] documented in this encounter Visit Diagnoses Not on filedocumented in this encounter
--- OUTSIDE RECORDS SUMMARY | 2025-05-14 07:41 | XMS_ITS | Encounter Summary ---
Author Organization [place] [address] Care Team Providers Care Toolroom Clerk Name Role Phone Unavailable Primary Care Provider Unavailabl e Encounter Details Date Type Department Care Team (Late st Contact Info) Description 01/07/2023 Orders Only [facility] [place] [phone] Barbara Bess MD [address] [place] [address] Social History Tobacco Use Types Packs/Day Years [...] Procedure Name Priority Date/Time Associated Diagnosis Comments Picsean STANDARD LEUKEMIA/LYMPHOMA PANEL Routine 01/07/2023 9:45 AM EST documented in this encounter Results * NEOGENOMICS STANDARD LEUKEMIA/LYMPHOMA PANEL (01/07/2023 9:45 AM EST) 01/07/2023 9:45 AM EST Narrative [facility] - 01/10/2023 3:22 PM EDT Requesting Provider: GIOVANNA Chaney Specimen = [id number] us Barbara Bess MD PATHOLOGY ORDERABLES Final Resul t Performing Organization Address City/State/[facility] Co de Phone Number [facility] [address] [place] [address] documented in this encounter Visit Diagnoses Not on filedocumented in this encounter
--- OUTSIDE RECORDS SUMMARY | 2025-05-14 07:41 | XMS_ITS | Encounter Summary ---
Author Organization [facility] Address [address] [place] [address] Care Team Providers Care Plumber Maintenance Name Role Phone Kai Shea MD Primary Care Provider [phone] Jessica Perales DO Unavailable [phone] Encounter Details Date Type Department Care Team (Late st Contact Info) Description [facility] [place] [facility] [address] [place] [address] Monica Sue MD [address] [place] [address] Social History Tobacco Use Types [...] drink first t vane in the morning (EYE-BUILDING MAINTENANCE TECHNICIAN) to steady your nerves or to get [...] Appointment [facility] A Radiology [address] [place] [address] documented as of this encounter Visit Diagnoses [...] documented as of this encounter Care Teams Plumber Maintenance Relationship Specialty Start Date End Date Kai Shea MD [address] [place] [address] PCP - General 03/13/21 Jessica Perales DO [address] [place] [address] Resident Neurology 06/16/21 documented as of this encounter
--- OUTSIDE RECORDS SUMMARY | 2025-05-14 07:41 | XMS_ITS | Patient Health Record ---
Author Organization [facility] Address [address] [place], [place] [address] Care Team Providers Care Controls Designer Name Role Phone Nas Shea Primary Care Provider Jessie Velez Unavailable [phone] Allergies No Known Allergies Results Component Value Reference Range Notes P-TSH Reviewed date:10/20/2024 11:28:50 AM Interpretation:Normal Performing Lab: Notes/Report: CLIA: [id number] Renato Cobb MD, Soil Biology Teacher [address] [place] [address] , [address], [place] [address] Test performed by [facility] TSH 2.38 0.43-5.25 mU/L P-PSA Reviewed date:10/20/2024 11:28:50 AM Interpretation:4.34 Performing Lab: Notes/Report: Test performed by [facility] [address] [place] [address] , [address], [place] [address] Renato Cobb MD, Soil Biology Teacher CLIA: [id number] PSA 4.34 <4.00 ng/mL Please note this is an ultrasensitive PSA assay with a lower limit of detection of 0.014 ng/mL. This test is performed by the Becki ECLIA methodology. Values obtained with different assay methods or kits cannot be directly compared. P-Lipid Panel Reviewed date:10/20/2024 11:28:49 AM Interpretation:Normal Performing Lab: Notes/Report: Test performed by [facility] [address] [place] [address] [address] [place], [place] [address] Renato Cobb MD, Soil Biology Teacher CLIA: [id number] Cholesterol 128 <200 mg/dL Triglycerides 147 <150 [...] Results: 59 Units: mg/dL % Change: +96% H-CBC Reviewed date:01/02/2025 08:41:58 AM Interpretation: Performing [...] 0.0 0.0-0.4 K/mm3 BA# 0.0 0-0.2 K/mm3 Estimated Average Glucose Reviewed date:02/07/2025 08:17:27 AM Interpretation: Performing Lab: Notes/Report: Test performed by [facility] [employer] [address] [place] [address] , [address] , [place] [address] Renato Cobb MD, Soil Biology Teacher CLIA: [id number] Estimated Average Glucose (eAG) 151 Estimated Average Glucose (eAG) is calculated using the equation eAG = (28.7 x HbA1c) - 46.7 based on the guidelines established by the ADA. If the patient has certain diseases including kidney disease, sickle cell anemia, thalassemia, or is taking medications such as dapsone, erythropoietin, or iron, eAG should not be evaluated. P-TSH Reviewed date:02/07/2025 08:17:27 AM Interpretation: Performing Lab: Notes/Report: Test performed by [facility] [address] [place] [address] [address]. [address] , [place] [address] Renato Cobb MD, Soil Biology Teacher CLIA: [id number] TSH 2.88 0.43-5.25 mU/L P-Hemoglobin A1C Reviewed date:02/07/2025 08:17:27 AM Interpretation: Performing Lab: Notes/Report: Test performed by [facility] [address] [place] [address] [address], [place] [address] Renato Cobb MD, Soil Biology Teacher CLIA: [id number] Hemoglobin A1C 6.9 <5.7 % The following HbA1c ranges recommended by the [place] [employer] Association (ADA) may be used as an aid in the diagnosis of diabetes mellitus. HbA1c Suggested Diagnosis >=6.5% Diabetic 5.7% - 6.4% Pre-Diabetic <5.7% Non-Diabetic H-BMP Reviewed date:01/02/2025 08:41:58 AM Interpretation: Performing Lab: Notes/Report: NA 136 136-145 mmol/L K 4.4 3.5-5.1 mmoL/L CL 101 98-107 mmol/L CO2 28 22.0-30.0 mmol/L GAP 11.4 5-15 mEq/L BUN 31 9-20 mg/dl CREATT 0.90 0.66-1.25 mg/dl CRCLE 84 50-200 mL/min GFRAA 100 >60 ML/MIN EGFR 82 >60 ml/min GLU 119 74-100 mg/dl CA 8.8 8.4-10.2 mg/dl Glycohemoglobin A1c (in hous e) Reviewed date:10/20/2024 11:28:50 AM Interpretation:6.4 Performing Lab: Notes/Report: 6.4 glycohemoglobin 6.4% 5 - 6.5 % Medications Medication SIG (Take, Route, Frequency, Duration) [...] W/U Status Risk Notes Problem Coronary arteriosclerosis (06713275) 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) Active confirmed Problem History of circulatory system disease (649766801) History of ASCVD (Z86.79) Active confirmed Problem Essential hypertension (11376150) Essential hypertension (I10) Active confirmed Problem Diabetes mellitus with neuropathy (267292330) Diabetes mellitus with neuropathy (E11.40) Active confirmed Problem Benign prostatic hyperplasia (871665859) BPH (benign prostatic hyperplasia) (N40.0) Active confirmed Problem Peripheral neuropathy (708206993) Peripheral neuropathy (G62.9) Active confirmed Problem Hearing loss (07408742) Hearing loss (H91.90) Active confirmed Problem Chronic tension-type headache (687098053) Chronic tension-type headache, not intractable (G44.229) Active confirmed Problem Chronic pain syndrome (735802554) Chronic pain syndrome (G89.4) Active confirmed Problem Chronic atrial fibrillation (187217882) Chronic atrial fibrillation (I48.2) Active confirmed Problem Hyperlipidemia due to type 2 diabetes mellitus (disorder) (080009570993906) Hyperlipidemia associated with type 2 diabetes mellitus (E11.69) Active confirmed Problem Diabetes mellitus (72907991) Diabetes mellitus (E11.9) Active confirmed Problem Gastroesophageal reflux disease (248153739) GERD without esophagitis (K21.9) Active confirmed Problem Unsteady gait (65449076) Unsteady gait (R26.81) Active confirmed Problem Gastroesophageal reflux disease without esophagitis (838216108) Gastroesophageal reflux disease without esophagitis (K21.9) Active confirmed Problem Acquired hypothyroidism (971656008) Acquired hypothyroidism (E03.9) Active confirmed Problem Cardiac pacemaker in situ (154084195) Pacemaker (Z95.0) Active confirmed Problem Lower urinary tract symptoms due to benign prostatic hypertrophy (65932060402380) Benign non-nodular prostatic hyperplasia with lower urinary tract symptoms (N40.1) Active confirmed Problem Displacement of lumbar intervertebral disc without myelopathy (66879039) Bulging lumbar disc (M51.26) Active confirmed Problem Cardiomyopathy (93393473) Cardiomyopathy (I42.9) Active confirmed Problem Multiple myeloma (441674145) Multiple myeloma (C90.00) Active confirmed Problem Dyslipidemia (453153079) Dyslipidemia (E78.5) Active confirmed Problem Skin ulcer (disorder) (85522774) Skin ulcer, limited to breakdown of skin (L98.491) Active confirmed Problem Restless legs (06064522) RLS (restless legs syndrome) (G25.81) Active confirmed Problem Peripheral circulatory disorder associated with diabetes mellitus (699631797) 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) Active confirmed Problem Lumbar spondylosis with myelopathy (74159100) Lumbar spondylosis with myelopathy (M47.16) Active confirmed Problem Significant coronary bypass graft disease (124301368) Coronary artery disease involving coronary bypass graft of [place] heart without angina pectoris (I25.810) Active confirmed Problem Chronic atrial fibrillation (066987757) Chronic atrial fibrillation (I48.20) Active confirmed Problem Automatic implantable cardiac defibrillator in situ (828056293) Cardiac defibrillator in place (Z95.810) Active confirmed Problem Monoclonal gammopathy of uncertain significance (disorder) (809380666) 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 [id number] [facility]/18/2024 Nas Shea Type 2 diabetes mellitus [...] C90.00 and Screening for prostate cancer Z12.[address] [id number] 01/21/2025 Jessie Velez Septic arthritis of knee M00.9 and Abrasions of multiple sites T07.XXXA [address] [id number] 02/05/2025 Nas Shea 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.59 ; Staphylococcal arthritis of right knee M00.061 ; Acquired hypothyroidism E03.9 ; Multiple myeloma C90.00 ; Diabetes mellitus with neuropathy E11.40 ; Dyslipidemia E78.5 ; Essential hypertension I10 ; Cardiomyopathy I42.9 and BMI 25.0-25.9,adult Z68.25 [facility] [address] [facility] [address] [place], [place] [id number] 03/19/2025 Jessie Velez Edema leg R60.0 ; [...] hyperplasia) N40.0 and Chronic atrial fibrillation I48.20 [facility] [address] [facility] [address] [place] [id number] 03/26/2025 Jessie Velez Hypotension I95.9 ; Edema of both legs R60.0 and BMI 28.0-28.9,adult Z68.28 [facility] [address] [facility] [address] [id number] 04/25/2025 R Jesus Monse Pacemaker Z95.0 ; Sk in tear of forearm without complication S51.819A ; Cardiomyopathy I42.9 ; History of ASCVD Z86.79 ; BPH (benign prostatic hyperplasia) N40.0 ; Diabetes mellitus E11.9 ; Peripheral neuropathy G62.9 ; Multiple myeloma C90.00 and BMI 25.0-25.9,adult Z68.25 [facility] [address] [facility] [address] [place], [place] [id number] 10/19/2024 R Jesus Monse ASCVD (arteriosclero tic cardiovascular disease) I25.10 [facility] [address] [facility] [address] [place], [place] [id number] 10/20/2024 R Jesus Monse [facility] [address] [facility] [address] [place], [place] [id number] 01/03/2025 R Jesus Monse [facility] [address] [place] [id number] 02/07/2025 Nas Shea [facility] [address] [place] [id number] 03/19/2025 Nas Shea Assessments Encounter Date Diagnosis (ICD Code) Assessment Notes Treatment Notes Treatment Clinical Notes Section Notes 04/25/2025 Pacemaker (ICD-10 - Z95.0) 04/25/2025 Skin tear of forearm without complication (ICD-10 - S51.819A) Instructed on wound care. Allow wound to be open to air for gradually more time each day 03/26/2025 Hypotension (ICD-10 - I95.9) BP has been normal; no med changes; to keep cardiology FU appt 02/05/2025 Type 2 diabetes mellitus with other circulatory complication (ICD-10 - E11.59) 02/05/2025 Staphylococcal arthritis of right knee (ICD-10 - M00.061) 01/21/2025 Septic arthritis of knee (ICD-10 - [...] ; to keep on greer cover atop 10/19/2024 ASCVD (arteriosclerotic cardiovascular disease) (ICD-10 - I25.10) 10/18/2024 Hyperlipidemia associated with type 2 diabetes mellitus (ICD-10 - E11.69) 10/18/2024 Type 2 diabetes mellitus with other circulatory complication (ICD-10 - E11.59) 03/19/2025 Hypotension (ICD-10 - I95.9) will continue [...] Diabetes mellitus with neuropathy (ICD-10 - E11.40) 03/26/2025 Edema of both legs (ICD-10 - R60.0) will continue to monitor; no med changes; to keep cardiology appt 04/25/2025 Cardiomyopathy (ICD-10 - I42.9) 04/25/2025 History of ASCVD (ICD-10 - Z86.79) 03/26/2025 BMI 28.0-28.9,adult (ICD-10 - Z68.28) 02/05/2025 Multiple myeloma (ICD-10 - C90.00) 10/18/2024 Essential hypertension (ICD-10 - I10) 03/19/2025 Cardiomyopathy (ICD-10 - I42.9) reviewed recent ECHO 03/19/2025 MGUS (monoclonal gammopathy of unknown significance) (ICD-10 - D47.2) 10/18/2024 Acquired hypothyroidism (ICD-10 - E03.9) 02/05/2025 Diabetes mellitus with neuropathy (ICD-10 - E11.40) 04/25/2025 BPH (benign prostatic hyperplasia) (ICD-10 - N40.0) 04/25/2025 Diabetes mellitus (ICD-10 - E11.9) 02/05/2025 Dyslipidemia (ICD-10 - E78.5) 10/18/2024 Dyslipidemia (ICD-10 - E78.5) 03/19/2025 Multiple myeloma (ICD-10 - C90.00) follows with dr. Eason; currently on vacation from [place] 03/19/2025 PVD (peripheral vascular disease) (ICD-10 - I73.9) 10/18/2024 ASCVD (arteriosclerotic cardiovascular disease) (ICD-10 - I25.10) 04/25/2025 Peripheral neuropathy (ICD-10 - G62.9) Instructed to wean by one half tabs daily per month 02/05/2025 Essential hypertension (ICD-10 - I10) 04/25/2025 Multiple myeloma (ICD-10 - C90.00) 02/05/2025 Cardiomyopathy (ICD-10 - I42.9) 10/18/2024 Hearing loss (ICD-10 - H91.90) 03/19/2025 Chronic atrial fibrillation (ICD-10 - I48.2) 03/19/2025 Type 2 diabetes mellitus with other circulatory complication (ICD-10 - E11.59) 10/18/2024 Diabetes mellitus (ICD-10 - E11.9) 02/05/2025 BMI 25.0-25.9,adult (ICD-10 - Z68.25) 04/25/2025 BMI 25.0-25.9,adult (ICD-10 - Z68.25) 10/18/2024 Peripheral [...] [address], [place], [id number], Insurance Providers Payer Name Payer Address Payer Phone Subscriber Number Group Number Insured Name Patient Relationship to Insured Coverage Start Date Coverage End Date MEDICARE PART B [address] [address] [place] [address] [id number] KEV DICK Self - patient is the insured [facility] [address] [place] [address] [id number] KEV DICK Self - patient is the [...] Cardiac Pacemaker 04/24/2025 Hospitalization History Reason Date(Month/Year) [facility] UTC - Fall 11/14/2023 [facility]-tachycardia 07/02-12/2019 Left heart cath/[place]/ normal flow of revascularized vessels 02/2017 [facility] pancreatitis 09/02/2016 [facility] ER-Afib 01/2016 C-scope - Dr. Kimball 09/2013 [facility] ER-suture to pinky finger of left mac[place] nd 09/25/2009
--- OUTSIDE RECORDS SUMMARY | 2025-05-14 07:41 | XMS_ITS | Encounter Summary ---
Author Organization [place] [address] Care Team Providers Care Stenotype Operator Name Role Phone Unavailable Primary Care Provider Unavailabl e Encounter Details Date Type Department Care Team (Late st Contact Info) Description 01/07/2023 [facility] Only [facility] [place] [id number] Barbara Bess MD [address] [place] [phone] Social History Tobacco Use Types Packs/Day Years [...] AM EST) 01/07/2023 9:45 AM EST Narrative [facility] - 01/16/2023 11:22 AM EDT Requesting Provider: GIOVANNA Chaney Specimen = [id number] us Barbara Bess MD PATHOLOGY ORDERABLES Final Resul t Performing Organization Address City/State/[facility] Co de Phone Number [facility] [address] [place] [address] documented in this encounter Visit Diagnoses Not on filedocumented in this encounter
--- OUTSIDE RECORDS SUMMARY | 2025-05-14 07:41 | XMS_ITS | Encounter Summary ---
Author Organization [facility] Address [address] [place] [address] Care Team Providers Care Health Policy Nurse Name Role Phone Kai Shea MD Primary Care Provider [phone]- [phone] Jessica Perales DO Unavailable [phone] Encounter Details Date Type Department Care Team (Late st Contact Info) Description 09/17/2021 Lab Requisition [facility] [address] [place] [address] Mar Diaz MD [address] [facility] [address] [place] [phone] Decreased white blood cell count, unspecified Social [...] EST Appointment [facility] Radiology [address] [place] [address] documented as of this encounter Procedures Procedure Name Priority Date/Time Associated Diagnosis Comments BONE MARROW EXAM CONSULT Routine 09/17/2021 9:40 AM EST Decreased white blood cell count, unspecified documented in this encounter Results * Bone Marrow Consult (09/17/2021 9:40 AM EST) Case Report Bone Marrow Case: [id number] Authorizing Provider: Mar Diaz MD Collected: 09/17/2021939 Ordering Location: [facility] Lab Received: 09/17/2021 0940 Pathologist: Jen Tesfaye MD Specimen: Bone Marrow Biopsy, [id number] 09/21/2021 1:36 PM EST [facility] Final Diagnosis PERIPHERAL BLOOD AND BONE MARROW, POSTERIOR ILIAC CREST (PERIPHERAL SMEAR, ASPIRATE SMEAR, AND CORE BIOPSY): - KAPPA RESECTED PLASMA CELL NEOPLASM, REPRESENTING APPROXIMATELY 20% OF HYPERCELLULAR BONE MARROW SEE COMMENT 09/21/2021 1:36 PM EST [facility] at 1336 EST Comment The differential diagnosis includes smoldering myeloma and a plasma cell myeloma. Correlation with complete radiologic and laboratory studies is required for final diagnosis. 09/21/2021 1:36 PM EST [facility] Clinical Information D72.819 - Decreased white blood cell count, unspecified [ICD-10-CM] 09/21/2021 1:36 PM EST [facility] CBC and Differential PERIPHERAL BLOOD: No results found for requested labs within last 200 hours. DIFFERENTIAL:No results found for requested labs within last 200 hours. Leukopenia with mild lymphopenia and mild neutropenia.Macro cytic, normocytic red blood cells without anemia. Adequate platelets.no circulating plasma cells. 09/21/2021 1:36 PM EST [facility] Bone Marrow Differential BONE MARROW DIFFERENTIAL: 200 cells Normal Patient Neutrophils 15-50 12 Metamyelocytes 4-19 19 Myelocytes 1-18 23 Promyelocytes 1-8 0 Blasts 0-2 0 Monocytes 0-5 1 Erythroid 16-38 26 Lymphocytes 3-24 5 Eosinophils 0-6 7 Basophils 0-2 1 Plasma cells 0-4 6 Other 09/21/2021 1:36 PM EST [facility] Bone Marrow Aspirate and Biopsy The bone marrow aspirate smears show several cellular marrow particles with maturing trilineage hematopoiesis. Myeloid precursors are maturing . Blasts are not increased. 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 Plasma cells are increased and account for [...] Gain of 11q/CCND1 09/21/2021 1:36 PM EST [facility] Gross Description A. [id number] Received along with a corresponding pathology report from Pathology & Cytology Laboratory are 19 slide(s) labeled outside case: [id number] collected on 01/08/2021. 09/21/2021 1:36 PM EST [facility] Note: A resident was involved in the service. I attest I examined the relevant preparations for the specimens and confirmed the diagnosis or interpretation. 09/21/2021 1:36 PM EST [facility] Bone Marrow Specimen from bone marrow obtained by biopsy / Unknown 09/17/2021 9:40 AM EST 09/17/2021 9:40 AM EST us Mar Diaz MD LAB PATHOLOGY ORDERABLES Rosa godinez Result [facility] [address] [place] [address] documented in this encounter Visit Diagnoses Diagnosis Decreased white blood cell count, unspecified documented in this encounter Additional Health Concerns Assessment Noted Time A fall risk assessment has been complete d for the patient 2021 1:47 PM EDT documented as of this encounter Care Teams Health Policy Nurse Relationship Specialty Start Date End Date Kai Shea MD [address] [place] [address] PCP - General 03/13/21 Jessica Perales DO [address] [facility] [address] [place] [phone] Resident Neurology 06/16/21 documented as of this encounter
--- OUTSIDE RECORDS SUMMARY | 2025-05-14 07:41 | XMS_ITS | Encounter Summary ---
Author Organization Healthcare Address [address] [place] [address] Care Team Providers Care Strategic Analyst Name Role Phone Kai Shea MD Primary Care Provider [phone]- [phone] Jessica Perales DO Unavailable [phone] Encounter Details Date Type Department Care Team (Late st Contact Info) Description 01/15/2025 Lab Requisition [facility] [address] [place] [address] Sara Alegre [address] [place] [address] Encounter for general adult medical examination without [...] place to sleep or slept in a snf (including now)? No 05/04/2024 PHQ-9 Answer Date [...] drink first t vane in the morning (EYE-RECOVERY ADVOCATE) to steady your nerves or to get [...] Appointment [facility] Radiology [address] [place] [address] documented as of this encounter Procedures Procedure [...] LAB HEMATOLOGY METHOD 01/16/2025 4:15 PM EDT [facility] Specimen Source, Body Fluid LAB HEMATOLOGY METHOD 01/16/2025 4:15 PM EDT [facility] Clinical Diagnosis, Body Fluid Joint effusion LAB HEMATOLOGY METHOD 01/16/2025 4:15 PM EDT [facility] Interpretation , Body Fluid Acute inflammatory cells; correlate with Gram stain/culture and/or crystal analysis. A resident was involved in the service. I attest I examined the relevant preparations for the specimens and confirmed the diagnosis or interpretation. 01/16/2025 4:15 PM EDT [facility] Pathologist Signature, Body Fluid 01/16/2025 4:15 PM EDT [facility] Comment:Reviewed by: Isabel Donohue MD LAB CP ASR DISCLAIMER Yes 01/16/2025 4:15 PM EDT [facility] Joint Fluid 01/15/2025 12:1 0 PM EDT 01/15/2025 2:41 PM EDT us Sara Codey LAB BODY FLUIDS AND STOOLS ORDER MARYLIN Final Result Performing Organization Address City/[facility]/ZIP Co de Phone Number [facility] [address] [place] [address] * (ABNORMAL) Joint Fluid Crystals (01/15/2025 12:10 PM EDT) Crystals, Joint Fluid Calcium Pyrophosphate Crystals Present(A) No Crystals Present 01/15/2025 7:55 PM EDT [facility] Joint Fluid 01/15/2025 12:1 0 PM EDT 01/15/2025 2:41 PM EDT Narrative [facility] - 01/15/2025 7:55 PM EDT Under compensated polarized light microscopy rhomboidal positively birefringent crystals are seen consistent with Calcium Pyrophosphate. The presence of steroid crystals may result in a false positive. Correlate results with recent history up to 2 months of steroid injection. Sara Codey LAB BODY FLUIDS AND STOOLS ORDER MARYLIN Final Result Performing Organization Address [facility] Co de Phone Number [facility] [address] [place] [address] * (ABNORMAL) Body Fluid Cell Count w/ Diff (01/15/2025 12:10 PM EDT) Color, Body fluid Red LAB HEMATOLOGY METHOD 01/15/2025 7:53 PM EDT [facility] Appearance, Body fluid Cloudy(A) LAB HEMATOLOGY METHOD 01/15/2025 7:53 PM EDT [facility] Volume, Body fluid 4.0 cc LAB HEMATOLOGY METHOD 01/15/2025 7:53 PM EDT [facility] Fluid Container Specimen received in Sodium Heparin LAB HEMATOLOGY METHOD 01/15/2025 7:53 PM EDT [facility] Red Blood Cell Count, Body fluid 45,500 uL LAB HEMATOLOGY METHOD 01/15/2025 7:53 PM EDT [facility] Comment:Clumps present, coun t may be affected. Test performed by manual method. Total Nucleated Cell Count, Body fluid 75,000 uL LAB HEMATOLOGY METHOD 01/15/2025 7:53 PM EDT [facility] Comment:Clumps present, coun t may be affected. Test performed by manual method. Neutrophils %, Body fluid 93 % LAB HEMATOLOGY METHOD 01/15/2025 7:53 PM EDT [facility] Lymphocytes %, Body fluid 0 % LAB HEMATOLOGY METHOD 01/15/2025 7:53 PM EDT [facility] Monocytes/Macro phages %, Body fluid 7 % LAB HEMATOLOGY METHOD 01/15/2025 7:53 PM EDT [facility] Eosinophils %, Body fluid 0 % LAB HEMATOLOGY METHOD 01/15/2025 7:53 PM EDT [facility] Lining/Mesothel ial Cells %, Body fluid 0 % LAB HEMATOLOGY METHOD 01/15/2025 7:53 PM EDT [facility] Neutrophils Absolute (PMN), Body fluid 69,750 uL LAB HEMATOLOGY METHOD 01/15/2025 7:53 PM EDT [facility] Lymphocytes Absolute, Body fluid 0 uL LAB HEMATOLOGY METHOD 01/15/2025 7:53 PM EDT [facility] Monocytes/Macro phages Absolute, Body fluid 5,250 uL LAB HEMATOLOGY METHOD 01/15/2025 7:53 PM EDT [facility] Eosinophils Absolute, Body fluid 0 uL LAB HEMATOLOGY METHOD 01/15/2025 7:53 PM EDT [facility] Basophils Absolute, Body fluid 0 uL LAB HEMATOLOGY METHOD 01/15/2025 7:53 PM EDT [facility] Lining/Mesothel ial Cells Absolute, Body fluid 0 uL LAB HEMATOLOGY METHOD 01/15/2025 7:53 PM EDT [facility] Comment, Body fluid None LAB HEMATOLOGY METHOD 01/15/2025 7:53 PM EDT [facility] Comment:This is an appended report. These results have been appended to a previously preliminary verified report. Basophils %, Body fluid 0 % LAB HEMATOLOGY METHOD 01/15/2025 7:53 PM EDT [facility] Joint Fluid 01/15/2025 12:1 0 PM EDT 01/15/2025 2:41 PM EDT Sara Alegre LAB BODY FLUIDS AND STOOLS ORDERABLES NO SPECIMEN TYPE/SOURCE Final Result [facility] [address] [place] [address] documented in this encounter Visit Diagnoses Diagnosis [...] documented as of this encounter Care Teams Strategic Analyst Relationship Specialty Start Date End Date Kai Shea MD [address] [place] [address] PCP - General 03/13/21 Jessica Perales DO [address] [place] [address] Resident Neurology 06/16/21 documented as of this encounter
--- NOTE | 2025-05-14 09:22 | PC.NURSE ---
PFT and 6 Minute walk test completed without incident. Albuterol 0.083% given via HHN, per written protocol, Pt tolerated tx well.
[2025-05-14] MEDS: ALBUTEROL 0.083% 2.5 MG/3 ML NEB IH (09:24)
[2025-05-14 09:43] LABS: Hematocrit 36.6 % (42.0-52.0); Hemoglobin 11.5 g/dL (14.1-18.0); Immature Granulocytes % 0.6 %; Mean Corpuscular HGB Conc 31.4 g/dL (31.8-35.4); Mean Corpuscular Hemoglobin 30.7 pg (27.0-31.2); Mean Corpuscular Volume 97.6 fl (80-94); Nucleated Red Blood Cells % 0 %; Platelet Count 174 K/mm3 (142-424); Red Blood Count 3.75 M/mm3 (4.60-6.20); Red Cell Distribution Width-SD 53.1 fL; White Blood Count 4.6 K/mm3 (4.8-10.8)
[2025-05-14 09:54] LABS: Albumin Level 4.3 g/dl (3.5-5.0); Chloride 103 mmol/L (98-107); Potassium 3.9 mmoL/L (3.5-5.1); Sodium 139 mmol/L (136-145)
[2025-05-14 09:57] LABS: Alanine Aminotransferase 14 U/L (12-78); Albumin/Globulin Ratio 1.8 (1.1-1.8); Alkaline Phosphatase 92 U/L (38-126); Anion Gap 13.9 mEq/L (5-15); Aspartate Amino Transferase 23 U/L (17-59); Bilirubin,Total 0.8 mg/dl (0.2-1.3); Blood Urea Nitrogen 18 mg/dl (9-20); Carbon Dioxide 26 mmol/L (22.0-30.0); Creatinine,Serum 0.80 mg/dl (0.66-1.25); Estimated Glomerular Filt Rate 94 ml/min (>60); GFR (African American) 114 ML/MIN (>60); Globulin 2.4 g/dL (1.3-3.2); Total Protein,Serum 6.7 g/dl (6.3-8.2)
[2025-05-14 09:58] LABS: Calcium 8.7 mg/dl (8.4-10.2); Glucose 150 mg/dl (74-100)
[2025-05-14 10:04] LABS: Activated Partial Thrombo Time 30.8 seconds (22.8-30.6); INR 1.84 (0.9-1.1); Prothrombin Time 19.5 seconds (10.1-12.5)
== END 2025-05-14 09:40 | disposition home or self-care (01) ==
LOC: RT 07:38 → INF 09:30
PROVIDERS: Internal Medicine Medical Oncology; PCP Family Medicine; Visit Provider Internal Medicine Pulmonary Disease
DX: C79.9 Secondary malignant neoplasm of unspecified site (principal); D47.2 Monoclonal gammopathy
CPT/HCPCS: 36415; 80053; 85025; 85610; 85730; 94060; 94618; 94726; 94729

== ENCOUNTER 2025-05-22 08:41 | Outpatient (CLI) | payer MEDICARE, BC, SELFPAY ==
--- OUTSIDE RECORDS SUMMARY | 2025-03-26 07:30 | XMS_ITS ---
Author Organization [facility] Address [address] [id number] Care Team Providers Care Personal Assistant Name Role Phone Nas Shea Primary Care Provider Jessie Velez Unavailable [phone] Allergies No Known Allergies REASON FOR VISIT [...] Encounters Encounter Location Date Provider Diagnosis [facility] [address] [place] [address] [address] [place], [place] [id number] 03/26/2025 Jessie Velez Hypotension I95.9 ; Edema [...] Provider Name:Nas Solis, 07/02/2025 09:15:00 AM, 1210 [facility] 36 [facility], [address], [place], [place], [phone], Progress Notes * ANGIE SWANOB: 0 (74 yo M)Acc No.[id number]:03/26/2025 Progress Notes Patient: Henry SHIRAJAGRUTI MORALESENCE Provider: GABRIELLE Sanders :1950 A ge:74 Y S ex:Male Date:03/26/2025 Address:[address] [place] [address] LUIZ KAMINSKI , [facility]-[id number] Pcp:Nas Shea Subjective: * Chief Complaints: * [...] diuretics adjusted. He has not seen a senior teradata developer. During walking test today in clinic his [...] stents 03/08/07, Open Heart Surgery-Dr Mott @ [facility] 12/2015, thoracentesis 12/2015, Laparoscopic cholecystectomy - Dr. Wallace 09/06/16, cardiac defibirilltor placed-Dr Yates 07/04/2020, cataract surgery-right eye 12/2020, Knee Surgery - Due to Infection -01/2025. * Hospitalization/Major Diagno stic Procedure: H ER-suture to pinky finger of left hand 09/25/09, C-scope - Dr. Kimball 09/2013, [facility] ER-Afib 01/2016, [facility] pancreat[facility] 09/02/16, Left heart cath/[place]/ normal flow of revascularized vessels 02/2017, [facility]-tachycardia 07/02 to 07/03/2020, [facility] UTC - Fall 11/14/2023. * Family History: [...] AD , alert , pleasant; presents with pharmacy care coordinator in a wheelchair. H eart: R RR. [...] * Images: Billing Information: * Visit Code: 30078 Office Visit, Est Pt., Level 3. * Procedure Codes: G2211 Complex e/m visit add on. G8420 BMI<30 AND >=22 CALC & DOCU. G8950 PREHTN/HTN BP DOC INDCD F/U DOC. G8752 MOST RECENT SYSTOLIC BP < 140MM HG. G8754 MOST RECENT DIASTOLIC BP < 90MM HG. * Electronic signature of Dahlia Velez APRN on 05/22/2025 at 08:46 AM EDT Sign off status: Pending * Provider: GABRIELLE Sanders Date: 0 03/26/2025 Generated for Galilea lozano/Ken/Stevenitting on: 0 05/22/2025 08:46 AM EDT History and Physical Notes * [...] , alert , pleasa nt; presents with pharmacy care coordinator in a wheelchair Neurologic Exam: alert and oriented
--- OUTSIDE RECORDS SUMMARY | 2025-04-18 05:00 | XMS_ITS ---
Author Organization [facility] Address [address] [place] [address] 36 [facility] [address] [place] [phone] Care Team Providers Care Purchase Request Editor Name Role Phone Nas Shea Primary Care Provider REASON FOR VISIT 6 months Encounters Encounter Location Date Provider Diagnosis [facility] 1210 [facility] 36 [facility] [address] [place] [id number] 04/18/2025 Nas Shea Plan Of Treatment Next Appt Details Provider Name:Nas Solis, 07/02/2025 09:15:00 AM, 1210 [facility] 36 [facility], [address], [place], [place], [phone], Progress Notes * ANGIE SWANOB: 0 (74 yo M)Acc No.[id number]:04/18/2025 Progress Notes Patient: Henry KEV CHEUNG Provider: Nas Shea M.D. :1950 A ge:74 Y S ex:Male Date:04/18/2025 Address:[address] [place] [address] TODD KAMINSKI , [place], [id number] Subjective: * Chief Complaints: * 1 . 6 months. * Medical History: Objective: * Vitals: Assessment: Plan: * Treatment: * Images: Billing Information: * Visit Code: * Procedure Codes: * Electronic signature of Nas Shea MD on 05/22/2025 at 08:47 AM EDT Sign off status: Pending * Provider: Nas Shea M.D. Date: 0 04/18/2025 Generated for Galilea lozano/Ken/Lynn on: 0 05/22/2025 08:47 AM EDT
--- OUTSIDE RECORDS SUMMARY | 2025-04-25 07:30 | XMS_ITS ---
Author Organization [facility] Address [address] [id number] Care Team Providers Care Concrete Puddler Name Role Phone Nas Shea Primary Care Provider [phone] Allergies No Known Allergies REASON FOR VISIT [...] Provider Diagnosis [facility] [address] [facility] [address] [place], [place] [id number] 04/25/2025 R Jesus Monse Pacemaker Z95.0 ; [...] Name:Nas [place]is, 07/02/2025 09:15:00 AM, [address] [facility] [address] [facility], [address] , [place], [place], [id number], Progress Notes * ANGIE SWANOB: 0 (74 yo M)Acc No.[id number]:04/25/2025 Progress Notes Patient: KEV LUZ Provider: Nas Shea M.D. :1950 A ge:74 Y S ex:Male Date:04/25/2025 Address:[address] [place] [address] YAMILEX , [facility]-[id number] Subjective: * Chief Complaints: * 1 . Skin Tear on Left Arm Possibly Infected. * HPI: C ardiology: He had a permanent pacemaker placed yesterday by Dr. Yates. Xarelto is currently on hold. His Lasix dose was increased. He tells me the poolroom table attendant would like for him to wean off [...] stents 03/08/2007, Open Heart Surgery-Dr Mott @ [facility] 12/2015, thoracentesis 12/2015, Laparoscopic cholecystectomy - Dr. Wallace 09/06/2016, cardiac defibirilltor placed-Dr Yates 07/04/2020, cataract surgery-right eye 12/2020, Knee Surgery - Due to Infection -01/2025, Cardiac Pacemaker 04/24/2025. * Hospitalization/Major Diagno stic Procedure: H ER-suture to pinky finger of left hand 09/25/2009, C-scope - Dr. Kimball 09/2013, [facility] ER-Afib 01/2016, [facility] pancreatitis 09/02/2016, Left heart cath/[place]/ normal flow of revascularized vessels 02/2017, [facility]-tachycardia 07/02-12/2019, [facility] UTC - Fall 11/14/2023. * Family [...] ultiple myeloma - C90.00 9 . B [place] 25.0-25.9,adult - Z68.25 ? Plan: * Treatment: [...] * Images: Billing Information: * Visit Code: 82866 Office Visit, Est Pt., Level 4. * [...] 04/25/2025 Generated for Galilea lozano/Ken/Lynn on: 0 05/22/2025 08:47 AM EDT History and Physical Notes * [...] sterile dressing. Cardiology He tells me the poolroom table attendant would like for him to wean off [...]
--- OUTSIDE RECORDS SUMMARY | 2025-05-22 08:47 | XMS_ITS | Encounter Summary ---
Author Organization Healthcare Address [address] [place] [address] Care Team Providers Care Internet And E Business Project Manager Name Role Phone Kai Shea MD Primary Care Provider [phone]- [phone] Jessica Perales DO Unavailable [phone] Encounter Details Date Type Department Care Team (Late st Contact Info) Description 12/31/2024 Lab Requisition [facility] [address] [place] [address] Valdo Carrillo, CARLOS [address] [place] [address] Encounter for general adult medical examination without [...] drink first t vane in the morning (EYE-MULLING MACHINE OPERATOR) to steady your nerves or [...] Appointment [facility] Radiology [address] [place] [address] documented as of this encounter Procedures Procedure [...] LAB HEMATOLOGY METHOD 01/01/2025 2:08 PM EST [facility] Specimen Source, Body Fluid LAB HEMATOLOGY METHOD 01/01/2025 2:08 PM EST [facility] Clinical Diagnosis, Body Fluid Joint fluid. Neuropathy. History of plasma cell neoplasm and Parkinson's LAB HEMATOLOGY METHOD 01/01/2025 2:08 PM EST [facility] Interpretation , Body Fluid No evidence of malignancy; acute inflammatory cells. See comment A resident was involved in the service. I attest I examined the relevant preparations for the specimens and confirmed the diagnosis or interpretation. 01/01/2025 2:08 PM EST [facility] Pathologist Signature, Body Fluid 01/01/2025 2:08 PM EST [facility] Comment:Reviewed by: Prashanth Montiel MD LAB CP ASR DISCLAIMER Yes 01/01/2025 2:08 PM EST [facility] Joint Fluid 12/31/2024 3:15 PM EST 12/31/2024 6:01 PM EST Narrative [facility] - 01/01/2025 2:08 PM EST Correlation with microbiology studies is suggested. Valdo GONZALEZ LAB BODY FLUIDS AND STOOLS ORDERABLES Final Result [facility] [address] [place] [address] * (ABNORMAL) Body Fluid Cell Count w/ Diff (12/31/2024 3:15 PM EST) Color, Body fluid Yellow LAB HEMATOLOGY METHOD 12/31/2024 8:00 PM EST [facility] Appearance, Body fluid Cloudy(A) LAB HEMATOLOGY METHOD 12/31/2024 8:00 PM EST [facility] Volume, Body fluid 2.5 cc LAB HEMATOLOGY METHOD 12/31/2024 8:00 PM EST [facility] Fluid Container Specimen received in EDTA tube LAB HEMATOLOGY METHOD 12/31/2024 8:00 PM EST [facility] Red Blood Cell Count, Body fluid 5,000 uL LAB HEMATOLOGY METHOD 12/31/2024 8:00 PM EST [facility] Total Nucleated Cell Count, Body fluid 44,000 uL LAB HEMATOLOGY METHOD 12/31/2024 8:00 PM EST [facility] Neutrophils %, Body fluid 95 % LAB HEMATOLOGY METHOD 12/31/2024 8:00 PM EST [facility] Lymphocytes %, Body fluid 1 % LAB HEMATOLOGY METHOD 12/31/2024 8:00 PM [facility] Monocytes/Macro phages %, Body fluid 4 % LAB HEMATOLOGY METHOD 12/31/2024 8:00 PM [facility] Eosinophils %, Body fluid 0 % LAB HEMATOLOGY METHOD 12/31/2024 8:00 PM [facility] Lining/Mesothel ial Cells %, Body fluid 0 % LAB HEMATOLOGY METHOD 12/31/2024 8:00 PM EST [facility] Neutrophils Absolute (PMN), Body fluid 41,800 uL LAB HEMATOLOGY METHOD 12/31/2024 8:00 PM [facility] Lymphocytes Absolute, Body fluid 440 uL LAB HEMATOLOGY METHOD 12/31/2024 8:00 PM [facility] Monocytes/Macro phages Absolute, Body fluid 1,760 uL LAB HEMATOLOGY METHOD 12/31/2024 8:00 PM [facility] Eosinophils Absolute, Body fluid 0 uL LAB HEMATOLOGY METHOD 12/31/2024 8:00 PM EST [facility] Basophils Absolute, Body fluid 0 uL LAB HEMATOLOGY METHOD 12/31/2024 8:00 PM EST [facility] Lining/Mesothel ial Cells Absolute, Body fluid 0 uL LAB HEMATOLOGY METHOD 12/31/2024 8:00 PM EST [facility] Comment, Body fluid None LAB HEMATOLOGY METHOD 12/31/2024 8:00 PM EST [facility] Comment:This is an appended report. These results have been appended to a previously preliminary verified report. Basophils %, Body fluid 0 % LAB HEMATOLOGY METHOD 12/31/2024 8:00 PM EST [facility] Joint Fluid 12/31/2024 3:15 PM EST 12/31/2024 6:01 PM EST us Valdo GONZALEZ LAB BODY FLUIDS AN D STOOLS ORDERABLES NO SPECIMEN TYPE/SOURCE Final Result Performing Organization Address [facility] Co de Phone Number [facility] [address] [place] [address] * (ABNORMAL) Synovial fluid, crystal (12/31/2024 3:15 PM EST) Crystals, Joint Fluid Calcium Pyrophosphate Crystals Present(A) No Crystals Present 12/31/2024 11:06 PM EST [facility] Joint Fluid 12/31/2024 3:15 PM EST 12/31/2024 6:01 PM EST Narrative [facility] - 12/31/2024 11:06 PM EST Under compensated polarized light microscopy rhomboidal positively birefringent crystals are seen consistent with Calcium Pyrophosphate. The presence of steroid crystals may result in a false positive. Correlate results with recent history up to 2 months of steroid injection. us Valdo GONZALEZ LAB BODY FLUIDS AND STOOLS ORDERABLES Final Result Performing Organization Address [facility] Co de Phone Number [facility] [address] [place] [address] documented in this encounter Visit Diagnoses Diagnosis [...] documented as of this encounter Care Teams Internet And E Business Project Manager Relationship Specialty Start Date End Date Kai Shea MD [address] [place] [address] PCP - General 03/13/21 Jessica Perales DO [address] [place] [address] Resident Neurology 06/16/21 documented as of this encounter
--- OUTSIDE RECORDS SUMMARY | 2025-05-22 08:47 | XMS_ITS | Encounter Summary ---
Author Organization [place] [address] Care Team Providers Care Videotape Recording Engineer Name Role Phone Unavailable Primary Care Provider Unavailabl e Encounter Details Date Type Department Care Team (Late st Contact Info) Description 01/07/2023 Orders Only [facility] [place] [id number] Barbara Bess MD [address] [place] [address] Social History Tobacco Use Types Packs/Day Years [...] Narrative [facility] - 01/17/2023 1:28 PM EDT Requesting Provider: GIOVANNA Chaney Specimen = [id number] us Barbara Bess MD PATHOLOGY ORDERABLES Final Resul t [facility] [address] [place] [address] documented in this encounter Visit Diagnoses Not on filedocumented in this encounter
--- OUTSIDE RECORDS SUMMARY | 2025-05-22 08:47 | XMS_ITS | Clinical Summary ---
Author Organization [facility] Address [address] [facility] [place] [address] [place] [address] Phone Care Team Providers Care Brand Sales Manager Name Role Phone Unavailable Primary Care [...] age to complete this topic Insurance [facility] FEDERAL MEDICARE [place] PART A AND B FEDERAL
--- OUTSIDE RECORDS SUMMARY | 2025-05-22 08:47 | XMS_ITS | Clinical Summary ---
Author Organization [facility] Address [address] [place] [address] Care Team Providers Care Getter Welder Name Role Phone Kai Shea MD Primary Care Provider [phone] Jessica Perales DO Unavailable [phone] Allergies No known active allergies Medications atorvastatin [...] Type Department Care Team Description [facility] [place] [address] Monica Sue MD from Last 3 Months Immunizations Immunization Administration Dates Next Due indidebt COVID-19 Vaccine (Purple Cap) 12 + 01/16/2021,12/24/2020 [...] place to sleep or slept in a fdc (including now)? No 05/04/2024 PHQ-9 Answer Date [...] drink first t vane in the morning (EYE-DIAMOND SAW OPERATOR) to steady your nerves or to [...] Appointment [facility] Radiology [address] [place] [address] Health Maintenance Due Date Last Done Comments [facility]-Medicare Annual Wellness (AWV) 1950 [facility]-/Child/Adol SDOH Screenings 1950 [facility]-Zoster Vaccines (1 of 2) 1969 CT Colonography 1995 Colonoscopy 1995 FIT-DNA 1995 FIT 1995 FOBT 1995 Sigmoidoscopy 1995 [facility]-Colorectal Cancer Screening 1995 [facility]-RSV Vaccine: 60+ Years or (1 - Risk 60-74 years 1-dose series) 2010 [facility]-Pneumococcal Vaccine: 50+ Years (2 of 2 - PPSV23) 03/16/2019 01/19/2019 [id number] Vaccine ( season) 2024 10/08/2021, 01/16/2021, 12/24/2020 [...] Antibody Negative Negative 05/03/2024 5:39 PM EDT [facility] Blood Venous blood specimen / Unknown Venipuncture / Unknown 05/03/2024 4:48 PM EDT 05/03/2024 4:58 PM EDT us Rome Dominguez MD LAB BLOOD ORDERABLES Final Result Performing Organization Address City/State/[facility] Co de Phone Number [facility] [address] [place] [address] from Last 3 Months or Most Recently Relevant to Health Maintenance Insurance [facility] MEDICARE Advance Directives Documents on File Type Date Recorded Patient Fiscal Assistant Expl anation Advance Directives and Living Will 05/04/2024 2:43 PM patient does not hav e an AD * Full Code (Latest Code Status on File) Date Activated Date Inactivated Comments 05/03/2024 10:21 PM 05/05/2024 2:20 PM Question Answer Comments Patient has decision-making capacity? Yes Care Teams Getter Welder Relationship Specialty Start Date End Date Kai Shea MD [address] [place] [address] PCP - General 03/13/21 Jessica Perales DO [address] [place] [address] Resident Neurology 06/16/21
--- OUTSIDE RECORDS SUMMARY | 2025-05-22 08:47 | XMS_ITS | Encounter Summary ---
Author Organization Healthcare Address [address] [place] [address] Care Team Providers Care Food Aide Name Role Phone Kai Shea MD Primary Care Provider [phone] Jessica Perales DO Unavailable [phone] Encounter Details Date Type Department Care Team (Late st Contact Info) Description 11/05/2024 Orders Only [place] [facility] [address] [place] [address] Rome York, DO [address] [place] [phone] Neuropathy Social History Tobacco Use Types Packs/Day [...] in a snf (including now)? No 05/04/2024 CAGE ASSESSMENT Answer [...] drink first t vane in the morning (EYE-JAVA DEVELOPER) to steady your nerves or to get [...] Appointment [facility] Radiology [address] [place] [address] documented as of this encounter Visit Diagnoses Diagnosis Neuropathy Mononeuritis of unspecified site documented in this encounter Additional Health Concerns Assessment Noted Time A fall risk assessment has been complete d for the patient 12/19/2023 3:03 PM EST A Body Mass Index follow-up plan has been documented for the patient 05/05/2024 11:32 AM EDT documented as of this encounter Care Teams Food Aide Relationship Specialty Start Date End Date Kai Shae MD [address] [place] [address] PCP - General 03/13/21 Jessica Perales DO [address] [place] [address] Resident Neurology 06/16/21 documented as of this encounter
--- OUTSIDE RECORDS SUMMARY | 2025-05-22 08:47 | XMS_ITS | Encounter Summary ---
Author Organization [place] [address] Care Team Providers Care Associate Programmer Analyst Name Role Phone Unavailable Primary Care Provider Unavailabl e Encounter Details Date Type Department Care Team (Late st Contact Info) Description 01/07/2023 Orders Only [facility] [place] [id number] Barbara Bess MD [address] [place] [phone] Social History Tobacco Use Types Packs/Day Years [...] EST) 01/07/2023 9:45 AM EST Narrative [facility] - 01/24/2023 5:22 PM EDT Requesting Provider: GIOVANNA Chaney Specimen = [id number] us Barbara Bess MD PATHOLOGY ORDERABLES Final Resul t [facility] [address] [place] [address] documented in this encounter Visit Diagnoses Not on filedocumented in this encounter
--- OUTSIDE RECORDS SUMMARY | 2025-05-22 08:47 | XMS_ITS | Encounter Summary ---
Author Organization [place] [address] Care Team Providers Care Speech Coach Name Role Phone Unavailable Primary Care Provider Unavailabl e Encounter Details Date Type Department Care Team (Late st Contact Info) Description 01/07/2023 [facility] Only [facility] [place] [place] [id number] Barbara Bess MD [address] [place] [phone] Social History Tobacco Use Types Packs/Day Years [...] Narrative [facility] - 01/16/2023 11:22 AM EDT Requesting Provider: GIOVANNA Chaney Specimen = [id number] us Barbara Bess MD PATHOLOGY ORDERABLES Final Resul t Performing Organization Address City/State/[facility] Co de Phone Number [facility] [address] [place] [address] documented in this encounter Visit Diagnoses Not on filedocumented in this encounter
--- OUTSIDE RECORDS SUMMARY | 2025-05-22 08:47 | XMS_ITS | Encounter Summary ---
Author Organization Healthcare Address [address] [place] [address] Care Team Providers Care Solutions Specialist Name Role Phone Kai Shea MD Primary Care Provider [phone] Jessica Perales DO Unavailable Encounter Details Date Type Department Care Team (Late st Contact Info) Description [facility] [place] [facility] [address] [place] [address] Monica Sue MD [address] [place] [address] Social History Tobacco Use Types [...] drink first t vane in the morning (EYE-KEY BED INSTALLER) to steady your nerves or to get [...] Appointment [facility] Radiology [address] [place] [address] documented as of this encounter Visit Diagnoses [...] documented as of this encounter Care Teams Solutions Specialist Relationship Specialty Start Date End Date Kai Shea MD [address] [place] [address] PCP - General 03/13/21 Jessica Perales DO [address] [place] [address] Resident Neurology 06/16/21 documented as of this encounter
--- OUTSIDE RECORDS SUMMARY | 2025-05-22 08:47 | XMS_ITS | Encounter Summary ---
Author Organization Healthcare Address [address] [place] [address] Care Team Providers Care Surgical Assistant Name Role Phone Kai Shea MD Primary Care Provider [phone]- [phone] Jessica Perales DO Unavailable [phone] Encounter Details Date Type Department Care Team (Late st Contact Info) Description 12/31/2024 Lab Requisition [facility] [address] [place] [address] Valdo Carrillo, CARLOS [address] [place] [address] [place] [address] Encounter for general adult medical examination without [...] place to sleep or slept in a half-way (including now)? No 05/04/2024 PHQ-9 Answer Date [...] drink first t vane in the morning (EYE-RADIOLOGIC TECHNICIAN) to steady your nerves or to [...] Appointment [facility] Radiology [address] [place] [address] documented as of this encounter Procedures Procedure Name Priority Date/Time Associated Diagnosis Comments BODY FLUID CULTURE AND GRAM STAIN Routine 12/31/2024 5:40 PM EST Encounter for general adult medical examination without abnormal findings documented in this encounter Results * (ABNORMAL) Body Fluid Culture and Gram Stain (12/31/2024 5:40 PM EST) Culture Light Growth 01/06/2025 10:47 AM EDT [facility] Culture Staphylococcus epidermidis(A) BASSAM 01/06/2025 10:47 AM EDT [facility] Comment: This isolate has been identified using the FDA Approved So[employer] [place] System The organism value for this result has been updated. These results have been appended to the previously preliminary verified report. Edited result: Previously reported as Gram positive cocci on 01/02/2025 at 0908 EST. Gram Stain Result Numerous Polymorphonuclear leukocytes(A) 01/06/2025 10:47 AM EDT [facility] Gram Stain Result Rare Gram positive cocci in pairs(A) 01/06/2025 10:47 AM EDT [facility] Joint Fluid Synovial fluid specimen [...] LAB MICROBIOLOGY - GENERAL ORDERABLES Final Result [facility] [address] [place] [address] documented in this encounter Visit Diagnoses Diagnosis [...] documented as of this encounter Care Teams Surgical Assistant Relationship Specialty Start Date End Date Kai Shea MD [address] [place] [address] PCP - General 03/13/21 Jessica Perales DO [address] [place] [address] Resident Neurology 06/16/21 documented as of this encounter
--- OUTSIDE RECORDS SUMMARY | 2025-05-22 08:47 | XMS_ITS | Clinical Summary ---
Author Organization [facility] Address [address] [place] [address] Care Team Providers Care Electric Bath Attendant Name Role Phone Kai Shea MD Primary Care Provider Allergies No known active allergies Medications rivaroxaban (XARELTO) 15 MG tablet Take 1 tablet by mouth Daily. Active hydrochlorothia zide (HYDRODIURIL) 25 MG tablet Take 1 tablet by mouth Daily. Active losartan (COZAAR) 50 MG tablet Take 1 tablet by mouth Daily. Active atorvastatin (LIPITOR) 40 MG tablet Take 1 tablet by mouth Daily. Active levothyroxine (SYNTHROID, LEVOTHROID) 25 MCG tablet Take 1 tablet by mouth Daily. Active raNITIdine (ZANTAC) 300 MG tablet Take 300 mg by mouth Every Night. Active amitriptyline (ELAVIL) 25 MG tablet Take 1 tablet by mouth Every Night. Active rOPINIRole (REQUIP) 0.5 MG tablet Take 1 tablet by mouth Every Night. Take 1 hour before bedtime. Active tamsulosin (FLOMAX) 0.4 MG capsule 24 hr capsule Take 1 capsule by mouth Daily. Active amLODIPine (NORVASC) 5 MG tablet Take 5 mg by mouth Daily. Active HYDROcodone-iftikhar taminophen (NORCO) 5-325 MG per tablet Take 1 tablet by mouth Every 6 (Six) Hours As Needed. Active bisoprolol (ZEBeta) 5 MG tablet Take 1 tablet by mouth Daily. 01/06/2023 Active furosemide (LASIX) 20 MG tablet 1 tablet 3 (Three) Times a Week. Active prochlorperazin e (COMPAZINE) 10 MG tablet 04/04/2023 Active omeprazole (priLOSEC) 40 MG capsule Take 1 capsule by mouth Daily. Active Active Problems Problem Noted Date Diagnosed Date Foot pain, bilateral 04/11/2023 Spinal stenosis, lumbar steven on, with neurogenic claudication 07/11/2019 DDD (degenerative disc disease), lumbar 07/11/20 19 Hereditary and idiopathic peripheral neuropathy 07/11/2019 Acquired spondylolisthesis 07/11/2019 Family History Medical History Relation Name Comments Diabetes Brother Emphysema Father Diabetes Mother Relation Name Status Comments Brother Father Mother Social History Tobacco Use Types Packs/Day Years Used Date Smoking Tobacco: Never Passive Smoke Exposure: Never Smokeless Tobacco: Never Tobacco Cessation:Counseling Given: Not Answered Alcohol Use Standard Drinks/Week Comments Yes 0 (1 standard drink = 0.6 oz pur e alcohol) occ Abuse Screen Answer Date Recorded Unsafe at Home or Work/School Not on file Feels Threatened by Someone? Not on file 09/2023 Does Anyone Keep You from Co ntacting Others or Doint Things Outside the Home? Not on file 08/11/2023 Physical Sign of Abuse Present Not on file 1 Housing Stability Answer Date Recorded Current Living Arrangements Not on file 07/31 Potentially Unsafe Housing Conditions Not on jesenia e 08/11/2023 Family and Community Support Answer Urban e Recorded Help with Day-to-Day Activities Not on file 08/11/2023 Lonely or Isolated Not on file 08/11/2023 Employment Answer Date Recorded Do you want help finding or keeping work or a bria b? Not on file 08/11/2023 Disabilities Answer Date Recorded Concentrating, Remembering, or Making Decisions Difficulty Not on file 08/11/2023 Doing Errands Independently Difficulty Not on fi le 08/11/2023 Education Answer Date Recorded Help with school or training? Not on file Preferred Language Not on file 08/11/2023 Sex and Gender Information Value Date Recorded Sex Assigned at Not on file Legal Sex Male 2:01 PM EDT Gender Identity Not on file Sexual Orientation Not on file Occupation Industry Job Start Date Job End Date [employer] Not on file Not on file Not on file Last Filed Vital Signs Vital Sign Reading Time Taken Comments Blood Pressure 118/74 04/05/2023 12:28 PM EDT Pulse 69 04/05/2023 12:27 PM EDT Temperature 36.1 C (96.9 F) 04/05/2023 12:27 PM EDT Respiratory Rate - - Oxygen Saturation 98% 04/05/2023 12: 27 PM EDT Inhaled Oxygen Concentration - - Weight 113 kg (249 lb 3.2 oz) 12:27 PM EDT Height 182.9 cm (6' 0.01 ) 04/05/2023 1 2:27 PM EDT pt reported Body Mass Index 33.79 04/05/2023 12:27 PM EDT Plan of Treatment Health Maintenance Due Date Last Done Comments COLOGUARD 1995 COLON CANCER SCREENING 5 YEA R SIGMOIDOSCOPY 1995 COLONOSCOPY 1995 COLORECTAL CANCER SCREENING 1995 CT COLONOGRAPHY 1995 FECAL OCCULT BLOOD TEST 1995 FIT Testing (1 year) 1995 ZOSTER VACCINE (1 of 2) 2000 AAA SCREEN ONCE 2015 ANNUAL WELLNESS VISIT 07/10/2019 HEPATITIS C SCREENING 07/10/2019 Pneumococcal Vaccine 50+ (2 of 2 - PPSV23) 01/20/2020 01/19/2019 COVID-19 Vaccine (4 - season) 2024 10/08/2021, 01/16/2021, 12/24/2020 INFLUENZA VACCINE 07/31/2025 TDAP/TD VACCINES (3 - Td or Tdap) 03/17/2033 023, 01/19/2019 Insurance MEDICARE A & B Member Subscriber Plan / Payer (Ef fective 2015-Present) Name:Kaleb Swan Member ID:[id number] Relation to Subscriber:Self Name:Kaleb Swan Subscriber ID:[id number] Payer ID:[id number] Group ID:Not on file Type:Not on file Address: [facility] [place] [id number] [address] Care Teams Electric Bath Attendant Relationship Specialty Start Date End Date Kai Shea MD [address] [place] [facility] [address] [facility] [address] [facility] [place] [address] PCP - General Family Medicine 04/05/23
--- OUTSIDE RECORDS SUMMARY | 2025-05-22 08:48 | XMS_ITS | Encounter Summary ---
Author Organization [facility] Address [address] [place] [address] Care Team Providers Care Glass Bulb Silverer Name Role Phone Kai Shea MD Primary Care Provider [phone] Jessica Perales DO Unavailable [phone] Encounter Details Date Type Department Care Team (Late st Contact Info) Description 09/17/2021 Lab Requisition [facility] [address] [place] [address] Mar Diaz MD [address] [facility] [address] [place] [phone] Decreased white blood cell count, unspecified Social [...] EST Appointment [facility] Radiology [address] [place] [address] documented as of this encounter Procedures Procedure Name Priority Date/Time Associated Diagnosis Comments BONE MARROW EXAM CONSULT Routine 09/17/2021 9:40 AM EST Decreased white blood cell count, unspecified documented in this encounter Results * Bone Marrow Consult (09/17/2021 9:40 AM EST) Case Report Bone Marrow Case: [id number] Authorizing Provider: Mar Diaz MD Collected: 09/17/2021939 Ordering Location: [facility] Received: 09/17/2021 0940 Pathologist: Jen Tesfaye MD Specimen: Bone Marrow Biopsy, [id number] 09/21/2021 1:36 PM EST [facility] Final Diagnosis PERIPHERAL BLOOD AND BONE MARROW, POSTERIOR ILIAC CREST (PERIPHERAL SMEAR, ASPIRATE SMEAR, AND CORE BIOPSY): - KAPPA RESECTED PLASMA CELL NEOPLASM, REPRESENTING APPROXIMATELY 20% OF HYPERCELLULAR BONE MARROW SEE COMMENT 09/21/2021 1:36 PM EST [facility] at 1336 EST Comment The differential diagnosis includes smoldering myeloma and a plasma cell myeloma. Correlation with complete radiologic and laboratory studies is required for final diagnosis. 09/21/2021 1:36 PM EST [facility] Clinical Information D72.819 - Decreased white blood cell count, unspecified [ICD-10-CM] 09/21/2021 1:36 PM EST [facility] CBC and Differential PERIPHERAL BLOOD: No results found for requested labs within last 200 hours. DIFFERENTIAL:No results found for requested labs within last 200 hours. Leukopenia with mild lymphopenia and mild neutropenia.Macro cytic, normocytic red blood cells without anemia. Adequate platelets.no circulating plasma cells. 09/21/2021 1:36 PM EST [facility] Bone Marrow Differential BONE MARROW DIFFERENTIAL: 200 cells Normal Patient Neutrophils 15-50 12 Metamyelocytes 4-19 19 Myelocytes 1-18 23 Promyelocytes 1-8 0 Blasts 0-2 0 Monocytes 0-5 1 Erythroid 16-38 26 Lymphocytes 3-24 5 Eosinophils 0-6 7 Basophils 0-2 1 Plasma cells 0-4 6 Other 09/21/2021 1:36 PM EST [facility] Bone Marrow Aspirate and Biopsy The bone marrow aspirate smears show several cellular marrow particles with maturing trilineage hematopoiesis. Myeloid precursors are maturing . Blasts are not increased. Erythropoiesis is clinical services consultant. Plasma cells are increased and account for [...] Gain of 11q/CCND1 09/21/2021 1:36 PM EST [facility] Gross Description A. [id number] Received along with a corresponding pathology report from [facility] are 19 slide(s) labeled outside case: [id number] collected on 01/08/2021. 09/21/2021 1:36 PM EST [facility] Note: A resident was involved in the service. I attest I examined the relevant preparations for the specimens and confirmed the diagnosis or interpretation. 09/21/2021 1:36 PM EST [facility] Bone Marrow Specimen from bone marrow obtained by biopsy / Unknown 09/17/2021 9:40 AM EST 09/17/2021 9:40 AM EST us Mar Diaz MD LAB PATHOLOGY ORDERABLES Rosa godinez Result [facility] [address] [place] [address] documented in this encounter Visit Diagnoses Diagnosis Decreased white blood cell count, unspecified documented in this encounter Additional Health Concerns Assessment Noted Time A fall risk assessment has been complete d for the patient 2021 1:47 PM EDT documented as of this encounter Care Teams Glass Bulb Silverer Relationship Specialty Start Date End Date Kai Shea MD [address] [place] [address] PCP - General 03/13/21 Jessica Perales DO [address] [facility] [address] [place] [phone] Resident Neurology 06/16/21 documented as of this encounter
--- OUTSIDE RECORDS SUMMARY | 2025-05-22 08:48 | XMS_ITS | Patient Health Record ---
Author Organization [facility] Address [address] [place] [id number] Care Team Providers Care Whiting Machine Operator Name Role Phone Nas Shea Primary Care Provider [phone] Jessie Velze Unavailable [phone] Allergies No Known Allergies Results Component Value Reference Range Notes Estimated Average Glucose Reviewed date:02/07/2025 08:17:27 AM Interpretation: Performing Lab: Notes/Report: Test performed by [facility] [address], [place] [address] Renato Cobb MD, Administrative Secretary CLIA: [id number] Estimated Average Glucose (eAG) 151 Estimated Average [...] Interpretation:Normal Performing Lab: Notes/Report: Test performed by [facility] [address] [place], [place] [address] [place] [address] Renato Cobb MD, Administrative Secretary CLIA: [id number] TSH 2.38 0.43-5.25 mU/L P-PSA Reviewed date:10/20/2024 11:28:50 AM Interpretation:4.34 Performing Lab: Notes/Report: Test performed by [facility] [place] [place] [address] Renato Cobb MD, Administrative Secretary CLIA: [id number] PSA 4.34 <4.00 ng/mL Please note this is an ultrasensitive PSA assay with a lower limit of detection of 0.014 ng/mL. This test is performed by the Becki ECLIA methodology. Values obtained with different assay methods or kits cannot be directly compared. P-Lipid Panel Reviewed date:10/20/2024 11:28:49 AM Interpretation:Normal Performing Lab: Notes/Report: Test performed by [facility] [address] [place] [address] Renato Cobb MD, Administrative Secretary CLIA: [id number] Cholesterol 128 <200 mg/dL Triglycerides 147 <150 [...] 6.4 glycohemoglobin 6.4% 5 - 6.5 % P-TSH Reviewed date:02/07/2025 08:17:27 AM Interpretation: Performing Lab: Notes/Report: Test performed by [facility] [address] [place] [address] [place] [address] Renato Cobb MD, Administrative Secretary CLIA: [id number] TSH 2.88 0.43-5.25 mU/L P-Hemoglobin A1C Reviewed date:02/07/2025 08:17:27 AM Interpretation: Performing Lab: Notes/Report: Test performed by [facility] [address] [place] [address] [address], [place] [address] Renato Cobb MD, Administrative Secretary CLIA: [id number] Hemoglobin A1C 6.9 <5.7 % The following HbA1c ranges recommended by the [place] Diabetes [employer] (ADA) may be used as an aid in the diagnosis of diabetes mellitus. HbA1c Suggested Diagnosis >=6.5% Diabetic 5.7% - 6.4% Pre-Diabetic <5.7% Non-Diabetic H-CBC Reviewed date:01/02/2025 08:41:58 AM Interpretation: Performing [...] orally once a day (at bedtime) Active Jardiance 10 MG 1 tab(s) orally once a day (in the morning) Not-Taking Aspirin 81 81 MG 1 tablet Orally Once a day; Duration: 90 days Active Immunizations Vaccine Route Administration Date Status Comme [...] W/U Status Risk Notes Problem Coronary arteriosclerosis (17768562) 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) Active confirmed Problem History of circulatory system disease (532888707) History of ASCVD (Z86.79) Active confirmed Problem Essential hypertension (13669689) Essential hypertension (I10) Active confirmed Problem Diabetes mellitus with neuropathy (106049405) Diabetes mellitus with neuropathy (E11.40) Active confirmed Problem Benign prostatic hyperplasia (992590002) BPH (benign prostatic hyperplasia) (N40.0) Active confirmed Problem Peripheral neuropathy (270112801) Peripheral neuropathy (G62.9) Active confirmed Problem Hearing loss (23849010) Hearing loss (H91.90) Active confirmed Problem Chronic tension-type headache (823829213) Chronic tension-type headache, not intractable (G44.229) Active confirmed Problem Chronic pain syndrome (773503384) Chronic pain syndrome (G89.4) Active confirmed Problem Chronic atrial fibrillation (397969793) Chronic atrial fibrillation (I48.2) Active confirmed Problem Hyperlipidemia due to type 2 diabetes mellitus (disorder) (751727633076702) Hyperlipidemia associated with type 2 diabetes mellitus (E11.69) Active confirmed Problem Diabetes mellitus (13463187) Diabetes mellitus (E11.9) Active confirmed Problem Gastroesophageal reflux disease (337436661) GERD without esophagitis (K21.9) Active confirmed Problem Unsteady gait (58684995) Unsteady gait (R26.81) Active confirmed Problem Gastroesophageal reflux disease without esophagitis (270311951) Gastroesophageal reflux disease without esophagitis (K21.9) Active confirmed Problem Acquired hypothyroidism (178055046) Acquired hypothyroidism (E03.9) Active confirmed Problem Cardiac pacemaker in situ (579911738) Pacemaker (Z95.0) Active confirmed Problem Lower urinary tract symptoms due to benign prostatic hypertrophy (71822198988518) Benign non-nodular prostatic hyperplasia with lower urinary tract symptoms (N40.1) Active confirmed Problem Displacement of lumbar intervertebral disc without myelopathy (78010054) Bulging lumbar disc (M51.26) Active confirmed Problem Cardiomyopathy (69945950) Cardiomyopathy (I42.9) Active confirmed Problem Multiple myeloma (587616682) Multiple myeloma (C90.00) Active confirmed Problem Dyslipidemia (591612446) Dyslipidemia (E78.5) Active confirmed Problem Skin ulcer (disorder) (88389485) Skin ulcer, limited to breakdown of skin (L98.491) Active confirmed Problem Restless legs (41396986) RLS (restless legs syndrome) (G25.81) Active confirmed Problem Peripheral circulatory disorder associated with diabetes mellitus (398916025) 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) Active confirmed Problem Lumbar spondylosis with myelopathy (38125835) Lumbar spondylosis with myelopathy (M47.16) Active confirmed Problem Significant coronary bypass graft disease (683322388) Coronary artery disease involving coronary bypass graft of [place] heart without angina pectoris (I25.810) Active confirmed Problem Chronic atrial fibrillation (302562876) Chronic atrial fibrillation (I48.20) Active confirmed Problem Automatic implantable cardiac defibrillator in situ (467692821) Cardiac defibrillator in place (Z95.810) Active confirmed Problem Monoclonal gammopathy of uncertain significance (disorder) (864821668) 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) Active confirmed Problem Pseudogout (405910664) Pseudogout (M11.20) Active confirmed Vital Signs Heart Rate 78 /min 04/25/2025 Blood pressure diastolic 64 mm Hg 04/25/2025 Height 72 in 04/25/2025 Blood pressure systolic 112 mm Hg 04/25/2025 Weight 187 lbs 04/25/2025 BMI 25.36 kg/m2 04/25/2025 Encounters Encounter [facility] Date [facility] [id number] [facility]/18/2024 Nas Shea Type 2 diabetes mellitus [...] C90.00 and Screening for prostate cancer Z12.[address] [id number] 01/21/2025 Jessie Velez Septic arthritis of knee M00.9 and Abrasions of multiple sites T07.XXXA [address] [id number] 02/05/2025 Nas Shea 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.59 ; Staphylococcal arthritis of right knee M00.061 ; Acquired hypothyroidism E03.9 ; Multiple myeloma C90.00 ; Diabetes mellitus with neuropathy E11.40 ; Dyslipidemia E78.5 ; Essential hypertension I10 ; Cardiomyopathy I42.9 and BMI 25.0-25.9,adult Z68.25 [facility] [address] [facility] [address] [place] [id number] 03/19/2025 Jessie Velez Edema leg R60.0 ; [...] hyperplasia) N40.0 and Chronic atrial fibrillation I48.20 [facility] [address] [facility] [address] [place] [id number] 03/26/2025 Jessie Velez Hypotension I95.9 ; Edema of both legs R60.0 and BMI 28.0-28.9,adult Z68.28 [facility] [address] [facility] [address] [place], [place] [id number] 04/25/2025 R Jesus Monse Pacemaker Z95.0 ; Sk in tear of forearm without complication S51.819A ; Cardiomyopathy I42.9 ; History of ASCVD Z86.79 ; BPH (benign prostatic hyperplasia) N40.0 ; Diabetes mellitus E11.9 ; Peripheral neuropathy G62.9 ; Multiple myeloma C90.00 and BMI 25.0-25.9,adult Z68.25 [facility] [address] [facility] [address] [place] [id number] 10/19/2024 R Jesus Monse ASCVD (arteriosclero tic cardiovascular disease) I25.10 [facility] [address] [facility] [address] [place], [place] [id number] 10/20/2024 R Jesus Monse [facility] [address] [place], [place] [id number] 01/03/2025 R Jesus Monse [facility] [address] [place] [id number] 02/07/2025 R Jesus Shea [facility] [address] [facility] 36 [facility] [address] [place] [id number] 03/19/2025 R Jesus Shea [facility] [address] [facility] 36 [facility] [address] [place] [id number] 05/21/2025 R Jesus Shea Assessments Encounter Date Diagnosis (ICD Code) [...] cardiovascular disease) (ICD-10 - I25.10) discussed with [facility] cardiology ; reviewed labs and ECHO [...] [address], [place], [id number], Insurance Providers Payer Name Payer Address Payer Phone Subscriber Number Group Number Insured Name Patient Relationship to Insured Coverage Start Date Coverage End Date [place] [address] [place] [address] [phone] [id number] KEV DICK Self - patient is the insured LAINE MELGOZA [address] [place] [address] [id number] KEV DICK Self - patient is the [...] Cardiac Pacemaker 04/24/2025 Hospitalization History Reason Date(Month/Year) [facility] UTC - Fall 11/14/2023 [facility]-tachycardia 07/02-12/2019 Left heart cath/[place]/ normal flow of revascularized vessels 02/2017 [facility] pancreatitis 09/02/2016 [facility] ER-Afib 01/2016 C-scope - Dr. Kimball 09/2013 [facility] ER-suture to pinky finger of left [place] nd 09/25/2009
--- OUTSIDE RECORDS SUMMARY | 2025-05-22 08:48 | XMS_ITS | Encounter Summary ---
Author Organization Healthcare Address [address] [place] [address] Care Team Providers Care Military Science Teacher Name Role Phone Kai Shea MD Primary Care Provider +1- [phone] Jessica Perales DO Unavailable [phone] Encounter Details Date Type Department Care Team (Late st Contact Info) Description 01/15/2025 Lab Requisition [facility] [address] [place] [address] Sara Alegre [address] [place] [address] Encounter for general adult medical examination without [...] drink first t vane in the morning (EYE-RECEPTIONIST TELEPHONE OPERATOR) to steady your nerves or to [...] Appointment [facility] Radiology [address] [place] [address] documented as of this encounter Procedures Procedure [...] LAB HEMATOLOGY METHOD 01/16/2025 4:15 PM EDT [facility] Specimen Source, Body Fluid LAB HEMATOLOGY METHOD 01/16/2025 4:15 PM EDT [facility] Clinical Diagnosis, Body Fluid Joint effusion LAB HEMATOLOGY METHOD 01/16/2025 4:15 PM EDT [facility] Interpretation , Body Fluid Acute inflammatory cells; correlate with Gram stain/culture and/or crystal analysis. A resident was involved in the service. I attest I examined the relevant preparations for the specimens and confirmed the diagnosis or interpretation. 01/16/2025 4:15 PM EDT [facility] Pathologist Signature, Body Fluid 01/16/2025 4:15 PM EDT [facility] Comment:Reviewed by: Isabel Donohue MD LAB CP ASR DISCLAIMER Yes 01/16/2025 4:15 PM EDT [facility] Joint Fluid 01/15/2025 12:1 0 PM EDT 01/15/2025 2:41 PM EDT us Sara Codey LAB BODY FLUIDS AND STOOLS ORDER MARYLIN Final Result Performing Organization Address City/[facility]/ZIP Co de Phone Number [facility] [address] [place] [address] * (ABNORMAL) Joint Fluid Crystals (01/15/2025 12:10 PM EDT) Crystals, Joint Fluid Calcium Pyrophosphate Crystals Present(A) No Crystals Present 01/15/2025 7:55 PM EDT [facility] Joint Fluid 01/15/2025 12:1 0 PM EDT 01/15/2025 2:[address] [facility] - 01/15/2025 7:55 PM EDT Under compensated polarized light microscopy rhomboidal positively birefringent crystals are seen consistent with Calcium Pyrophosphate. The presence of steroid crystals may result in a false positive. Correlate results with recent history up to 2 months of steroid injection. Sara Codey LAB BODY FLUIDS AND STOOLS ORDER MARYLIN Final Result Performing Organization Address [facility] Co de Phone Number [facility] [address] [place] [address] * (ABNORMAL) Body Fluid Cell Count w/ Diff (01/15/2025 12:10 PM EDT) Color, Body fluid Red LAB HEMATOLOGY METHOD 01/15/2025 7:53 PM EDT [facility] Appearance, Body fluid Cloudy(A) LAB HEMATOLOGY METHOD 01/15/2025 7:53 PM EDT [facility] Volume, Body fluid 4.0 cc LAB HEMATOLOGY METHOD 01/15/2025 7:53 PM EDT [facility] Fluid Container Specimen received in Sodium Heparin LAB HEMATOLOGY METHOD 01/15/2025 7:53 PM EDT [facility] Red Blood Cell Count, Body fluid 45,500 uL LAB HEMATOLOGY METHOD 01/15/2025 7:53 PM EDT [facility] Comment:Clumps present, coun t may be affected. Test performed by manual method. Total Nucleated Cell Count, Body fluid 75,000 uL LAB HEMATOLOGY METHOD 01/15/2025 7:53 PM EDT [facility] Comment:Clumps present, coun t may be affected. Test performed by manual method. Neutrophils %, Body fluid 93 % LAB HEMATOLOGY METHOD 01/15/2025 7:53 PM EDT [facility] Lymphocytes %, Body fluid 0 % LAB HEMATOLOGY METHOD 01/15/2025 7:53 PM EDT [facility] Monocytes/Macro phages %, Body fluid 7 % LAB HEMATOLOGY METHOD 01/15/2025 7:53 PM EDT [facility] Eosinophils %, Body fluid 0 % LAB HEMATOLOGY METHOD 01/15/2025 7:53 PM EDT [facility] Lining/Mesothel ial Cells %, Body fluid 0 % LAB HEMATOLOGY METHOD 01/15/2025 7:53 PM EDT [facility] Neutrophils Absolute (PMN), Body fluid 69,750 uL LAB HEMATOLOGY METHOD 01/15/2025 7:53 PM EDT [facility] Lymphocytes Absolute, Body fluid 0 uL LAB HEMATOLOGY METHOD 01/15/2025 7:53 PM EDT [facility] Monocytes/Macro phages Absolute, Body fluid 5,250 uL LAB HEMATOLOGY METHOD 01/15/2025 7:53 PM EDT [facility] Eosinophils Absolute, Body fluid 0 uL LAB HEMATOLOGY METHOD 01/15/2025 7:53 PM EDT [facility] Basophils Absolute, Body fluid 0 uL LAB HEMATOLOGY METHOD 01/15/2025 7:53 PM EDT [facility] Lining/Mesothel ial Cells Absolute, Body fluid 0 uL LAB HEMATOLOGY METHOD 01/15/2025 7:53 PM EDT [facility] Comment, Body fluid None LAB HEMATOLOGY METHOD 01/15/2025 7:53 PM EDT [facility] Comment:This is an appended report. These results have been appended to a previously preliminary verified report. Basophils %, Body fluid 0 % LAB HEMATOLOGY METHOD 01/15/2025 7:53 PM EDT [facility] Joint Fluid 01/15/2025 12:1 0 PM EDT 01/15/2025 2:41 PM EDT Sara Alegre LAB BODY FLUIDS AND STOOLS ORDERABLES NO SPECIMEN TYPE/SOURCE Final Result [facility] [address] [place] [address] documented in this encounter Visit Diagnoses Diagnosis [...] documented as of this encounter Care Teams Military Science Teacher Relationship Specialty Start Date End Date Kai Shea MD [address] [place] [address] PCP - General 03/13/21 Jessica Perales DO [address] [place] [address] Resident Neurology 06/16/21 documented as of this encounter
--- OUTSIDE RECORDS SUMMARY | 2025-05-22 08:48 | XMS_ITS | Encounter Summary ---
Author Organization [place] [address] Care Team Providers Care Weigher Production Name Role Phone Unavailable Primary Care Provider Unavailabl e Encounter Details Date Type Department Care Team (Late st Contact Info) Description 01/07/2023 Orders Only [facility] [place] [id number] Barbara Bess MD [address] [place] [address] Social History Tobacco Use Types Packs/Day Years [...] Procedure Name Priority Date/Time Associated Diagnosis Comments Lightswitch STANDARD LEUKEMIA/LYMPHOMA PANEL Routine 01/07/2023 9:45 AM EST documented in this encounter Results * NEOGENOMICS STANDARD LEUKEMIA/LYMPHOMA PANEL (01/07/2023 9:45 AM EST) 01/07/2023 9:45 AM EST Narrative [facility] - 01/10/2023 3:22 PM EDT Requesting Provider: GIOVANNA Chaney Specimen = [id number] us Barbara Bess MD PATHOLOGY ORDERABLES Final Resul t Performing Organization Address City/State/[facility] Co de Phone Number [facility] [address] [place] [address] documented in this encounter Visit Diagnoses Not on filedocumented in this encounter
[2025-05-22 09:18] LABS: Activated Partial Thrombo Time 26.2 seconds (22.8-30.6); INR 1.30 (0.9-1.1); Prothrombin Time 14.2 seconds (10.1-12.5)
== END 2025-05-22 09:00 | disposition home or self-care (01) ==
LOC: INF 08:42
PROVIDERS: PCP Family Medicine; Visit Provider Internal Medicine Medical Oncology
DX: C90.00 Multiple myeloma not having achieved remission (principal); D47.2 Monoclonal gammopathy
CPT/HCPCS: 36415; 85610; 85730

== ENCOUNTER 2025-05-29 09:28 | Outpatient (CLI) | payer MEDICARE, BC, SELFPAY ==
--- OUTSIDE RECORDS SUMMARY | 2025-05-29 09:31 | XMS_ITS | Encounter Summary ---
Author Organization [place] [address] Care Team Providers Care Sandblast Carver Name Role Phone Unavailable Primary Care Provider Unavailabl e Encounter Details Date Type Department Care Team (Late st Contact Info) Description 01/07/2023 Orders Only [facility] [place] [id number] Barbara Bess MD [address] [place] [phone] Social History Tobacco Use Types Packs/Day Years [...] AM EST) 01/07/2023 9:45 AM EST Narrative [facility] - 01/24/2023 5:22 PM EDT Requesting Provider: GIOVANNA Chaney Specimen = [id number] us Barbara Bess MD PATHOLOGY ORDERABLES Final Resul t [facility] [address] [place] [address] documented in this encounter Visit Diagnoses Not on filedocumented in this encounter
--- OUTSIDE RECORDS SUMMARY | 2025-05-29 09:31 | XMS_ITS | Encounter Summary ---
Author Organization Healthcare Address [address] [place] [address] Care Team Providers Care Clinical Supervisor Name Role Phone Kai Shea MD Primary Care Provider [phone]- [phone] Jessica Perales DO Unavailable [phone] Encounter Details Date Type Department Care Team (Late st Contact Info) Description [facility]/22/20[facility] [place] [facility] [address] [place] [address] Monica Sue MD [address] [place] [address] Social History Tobacco Use Types [...] drink first t vane in the morning (EYE-HUB ASSOCIATE) to steady your nerves or to get [...] Appointment [facility] Radiology [address] [place] [address] documented as of this encounter Visit Diagnoses [...] documented as of this encounter Care Teams Clinical Supervisor Relationship Specialty Start Date End Date Kai Shea MD [address] [place] [address] PCP - General 03/13/21 Jessica Perales DO [address] [place] [address] Resident Neurology 06/16/21 documented as of this encounter
--- OUTSIDE RECORDS SUMMARY | 2025-05-29 09:31 | XMS_ITS | Encounter Summary ---
Author Organization Healthcare Address [address] [place] [address] Care Team Providers Care Gambreler Name Role Phone Kai Shea MD Primary Care Provider [phone]- [phone] Jessica Perales DO Unavailable Encounter Details Date Type Department Care Team (Late st Contact Info) Description 11/05/2024 Orders Only [place] [facility] [address] [place] [address] Rome York, DO [address] [phone] Neuropathy Social History Tobacco Use Types Packs/Day [...] drink first t vane in the morning (EYE-REGIONAL COORDINATOR) to steady your nerves or to [...] Appointment [facility] Radiology [address] [place] [address] documented as of this encounter Visit Diagnoses Diagnosis Neuropathy Mononeuritis of unspecified site documented in this encounter Additional Health Concerns Assessment Noted Time A fall risk assessment has been complete d for the patient 12/19/2023 3:03 PM EST A Body Mass Index follow-up plan has been documented for the patient 05/05/2024 11:32 AM EDT documented as of this encounter Care Teams Gambreler Relationship Specialty Start Date End Date Kai Shea MD [address] [place] [address] PCP - General 03/13/21 Jessica Perales DO [address] [place] [address] Resident Neurology 06/16/21 documented as of this encounter
--- OUTSIDE RECORDS SUMMARY | 2025-05-29 09:31 | XMS_ITS | Encounter Summary ---
Author Organization Healthcare Address [address] [place] [address] Care Team Providers Care Restaurant Front Manager Name Role Phone Kai Shea MD Primary Care Provider [phone]- [phone] Jessica Perales DO Unavailable [phone] Encounter Details Date Type Department Care Team (Late st Contact Info) Description 01/15/2025 Lab Requisition [facility] [address] [place] [address] Sara Alegre [address] [place] [address] Encounter for general adult medical examination without [...] drink first t vane in the morning (EYE-PARK ATTENDANT) to steady your nerves or to [...] Appointment [facility] A Radiology [address] [place] [address] documented as of this encounter Procedures Procedure [...] ORDER MARYLIN Final Result Performing Organization Address City/[facility]/ZIP Co de Phone Number [facility] [address] [place] [address] * (ABNORMAL) Joint Fluid Crystals (01/15/2025 12:10 PM EDT) Crystals, Joint Fluid Calcium Pyrophosphate Crystals Present(A) No Crystals Present 01/15/2025 7:55 PM EDT [facility] Joint Fluid 01/15/2025 12:1 0 PM EDT 01/15/2025 2:41 PM EDT [facility]ative [facility] - 01/15/2025 7:55 PM EDT Under compensated polarized light microscopy rhomboidal positively birefringent crystals are seen consistent with Calcium Pyrophosphate. The presence of steroid crystals may result in a false positive. Correlate results with recent history up to 2 months of steroid injection. Sara Codey LAB BODY FLUIDS AND STOOLS ORDER MARYLIN Final Result Performing Organization Address [facility] Co de Phone Number [facility] [address] [place] [address] * (ABNORMAL) Body Fluid Cell Count w/ [...] Final Result [facility] [address] [place] [address] documented in this encounter Visit Diagnoses Diagnosis [...] documented as of this encounter Care Teams Restaurant Front Manager Relationship Specialty Start Date End Date Kai Shea MD [address] [place] [address] PCP - General 03/13/21 Jessica Perales DO [address] [place] [address] Resident Neurology 06/16/21 documented as of this encounter
--- OUTSIDE RECORDS SUMMARY | 2025-05-29 09:31 | XMS_ITS | Encounter Summary ---
Author Organization [place] [address] Care Team Providers Care Rn Chemical Dependency Name Role Phone Unavailable Primary Care Provider Unavailabl e Encounter Details Date Type Department Care Team (Late st Contact Info) Description 01/07/2023 Orders Only [facility] [place] [phone] Barbara Bess MD [address] [place] [phone] Social History Tobacco Use Types Packs/Day Years [...] AM EST) 01/07/2023 9:45 AM EST Narrative [facility] - 01/16/2023 11:22 AM EDT Requesting Provider: GIOVANNA Chaney Specimen = [id number] us Barbara Bess MD PATHOLOGY ORDERABLES Final Resul t Performing Organization Address City/State/[facility] Co de Phone Number [facility] [address] [place] [address] documented in this encounter Visit Diagnoses Not on filedocumented in this encounter
--- OUTSIDE RECORDS SUMMARY | 2025-05-29 09:31 | XMS_ITS | Clinical Summary ---
Author Organization [facility] Address [address] [place] [address] Care Team Providers Care Locomotive Inspector Name Role Phone Kai Shea MD [...] Payer (Ef fective 2015-Present) Name:Kaleb Swan Member ID:[id number] Relation to Subscriber:Self Name:Kaleb Swan Subscriber ID:[id number] Payer ID:[id number] Group ID:Not on file Type:Not on file Address: [facility] [id number] Care Teams Locomotive Inspector Relationship Specialty Start Date End Date Kai Shea MD [address] [place] [facility] [address] [facility] [address] [place] [address] PCP - General Family Medicine 04/05/23
--- OUTSIDE RECORDS SUMMARY | 2025-05-29 09:31 | XMS_ITS | Encounter Summary ---
Author Organization [facility] Address [address] [place] [address] Care Team Providers Care Milling Machine Tender Name Role Phone Kai Shea MD Primary Care Provider [phone]- [phone] Jessica Perales DO Unavailable [phone] Encounter Details Date Type Department Care Team (Late st Contact Info) Description 09/17/2021 Lab Requisition [facility] [address] [place] [address] Mar Diaz MD [address] [facility] [address] [place] [phone] Decreased white blood cell count, unspecified Social [...] EST Appointment [facility] A Radiology [address] [place] [address] documented as of this encounter Procedures Procedure Name Priority Date/Time Associated Diagnosis Comments BONE MARROW EXAM CONSULT Routine 09/17/2021 9:40 AM EST Decreased white blood cell count, unspecified documented in this encounter Results * Bone Marrow Consult (09/17/2021 9:40 AM EST) Case Report Bone Marrow Case: [id number] Authorizing Provider: Mar Diaz MD Collected: 09/17/2021939 Ordering Location: 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 Correlation with complete radiologic and laboratory studies is required for final diagnosis. 09/21/2021 1:36 PM EST [facility] Clinical Information D72.819 - Decreased white blood cell count, unspecified [ICD-10-CM] 09/21/2021 1:36 PM EST [facility] CBC and Differential PERIPHERAL BLOOD: No results found for requested labs within last 200 hours. DIFFERENTIAL:No results found for requested labs within last 200 hours. Leukopenia with mild lymphopenia and mild neutropenia.Macro cytic, normocytic red blood cells without anemia. Adequate platelets.no circulating plasma cells. 09/21/2021 1:36 PM EST [facility] Bone Marrow Differential BONE MARROW DIFFERENTIAL: 200 cells Normal Patient Neutrophils 15-50 12 Metamyelocytes 4-19 19 Myelocytes 1-18 23 Promyelocytes 1-8 0 Blasts 0-2 0 Monocytes 0-5 1 Erythroid 16-38 26 Lymphocytes 3-24 5 Eosinophils 0-6 7 Basophils 0-2 1 Plasma cells 0-4 6 Other 09/21/2021 1:36 PM EST [facility] Bone Marrow Aspirate and Biopsy The bone marrow aspirate smears show several cellular marrow particles with maturing trilineage hematopoiesis. Myeloid precursors are maturing . Blasts are not increased. Erythropoiesis is criminal investigative agent. Plasma cells are increased and account for [...] Gain of 11q/CCND1 09/21/2021 1:36 PM EST [facility] Gross Description A. [id number] Received along with a corresponding pathology report from [facility] Cytology Laboratory are 19 slide(s) labeled outside case: [id number] collected on 01/08/2021. 09/21/2021 1:36 PM EST [facility] Note: A resident was involved in the service. I attest I examined the relevant preparations for the specimens and confirmed the diagnosis or interpretation. 09/21/2021 1:36 PM EST [facility] Bone Marrow Specimen from bone marrow obtained by biopsy / Unknown 09/17/2021 9:40 AM EST 09/17/2021 9:40 AM EST us Mar Diaz MD LAB PATHOLOGY ORDERABLES Rosa godinez Result [facility] [address] [place] [address] documented in this encounter Visit Diagnoses Diagnosis Decreased white blood cell count, unspecified documented in this encounter Additional Health Concerns Assessment Noted Time A fall risk assessment has been complete d for the patient 2021 1:47 PM EDT documented as of this encounter Care Teams Milling Machine Tender Relationship Specialty Start Date End Date Kai Shea MD [address] [place] [address] PCP - General 03/13/21 Jessica Perales DO [address] [facility] [address] [place] [phone] Resident Neurology 06/16/21 documented as of this encounter
--- OUTSIDE RECORDS SUMMARY | 2025-05-29 09:31 | XMS_ITS | Encounter Summary ---
Author Organization [place] [address] Care Team Providers Care Police Patrol Lieutenant Name Role Phone Unavailable Primary Care Provider Unavailabl e Encounter Details Date Type Department Care Team (Late st Contact Info) Description 01/07/2023 Orders Only [facility] [place] [phone] Barbara Bess MD [address] [place] [address] Social History Tobacco Use Types Packs/Day Years [...] Procedure Name Priority Date/Time Associated Diagnosis Comments [employer] STANDARD LEUKEMIA/LYMPHOMA PANEL Routine 01/07/2023 9:45 AM EST documented in this encounter Results * NEOGENOMICS STANDARD LEUKEMIA/LYMPHOMA PANEL (01/07/2023 9:45 AM EST) 01/07/2023 9:45 AM EST Narrative [facility] - 01/10/2023 3:22 PM EDT Requesting Provider: GIOVANNA Chaney Specimen = [id number] us Barbara Bess MD PATHOLOGY ORDERABLES Final Resul t Performing Organization Address City/State/[facility] [[email or web address]] Co de Phone Number [facility] [address] [place] [address] documented in this encounter Visit Diagnoses Not on filedocumented in this encounter
--- OUTSIDE RECORDS SUMMARY | 2025-05-29 09:31 | XMS_ITS | Encounter Summary ---
Author Organization [place] [address] Care Team Providers Care Emergency Room Tech Name Role Phone Unavailable Primary Care Provider Unavailabl e Encounter Details Date Type Department Care Team (Late st Contact Info) Description 01/07/2023 Orders Only [facility] [place] [phone] Barbara Bess MD [address] [place] [phone] Social History Tobacco Use Types Packs/Day Years [...] AM EST) 01/07/2023 9:45 AM EST Narrative [facility] - 01/17/2023 1:28 PM EDT Requesting Provider: GIOVANNA Chaney Specimen = [id number] us Barbara Bess MD PATHOLOGY ORDERABLES Final Resul t [facility] [address] [place] [address] documented in this encounter Visit Diagnoses Not on filedocumented in this encounter
--- OUTSIDE RECORDS SUMMARY | 2025-05-29 09:31 | XMS_ITS | Encounter Summary ---
Author Organization Healthcare Address [address] [place] [address] Care Team Providers Care Faa Certified Powerplant Mechanic Name Role Phone Kai Shea MD Primary Care Provider [phone]- [phone] Jessica Perales DO Unavailable [phone] Encounter Details Date Type Department Care Team (Late st Contact Info) Description 12/31/2024 Lab Requisition [facility] [address] [place] [address] Valdo Carrillo, CARLOS [address] [place] [address] Encounter for general adult medical examination without [...] place to sleep or slept in a custodial (including now)? No 05/04/2024 PHQ-9 Answer Date [...] drink first t vane in the morning (EYE-COLON AND RECTAL SURGEON) to steady your nerves or to get [...] Appointment [facility] A Radiology [address] [place] [address] documented as of this encounter Procedures Procedure Name Priority Date/Time Associated Diagnosis Comments BODY FLUID CULTURE AND GRAM STAIN Routine 12/31/2024 5:40 PM EST Encounter for general adult medical examination without abnormal findings documented in this encounter Results * (ABNORMAL) Body Fluid Culture and Gram Stain (12/31/2024 5:40 PM EST) Culture Light Growth 01/06/2025 10:47 AM EDT [facility] Culture Staphylococcus epidermidis(A) BASSAM 01/06/2025 10:47 AM EDT [facility] Comment: This isolate has been identified using the FDA Approved [employer] System The organism value for this result has been updated. These results have been appended to the previously preliminary verified report. Edited result: Previously reported as Gram positive cocci on 01/02/2025 at 0908 EST. Gram Stain Result Numerous Polymorphonuclear leukocytes(A) 01/06/2025 10:47 AM EDT [facility] Gram Stain Result Rare Gram positive cocci in pairs(A) 01/06/2025 10:47 AM EDT [facility] Joint Fluid Synovial fluid specimen / [...] LAB MICROBIOLOGY - GENERAL ORDERABLES Final Result [facility] [address] [place] [address] documented in this encounter Visit Diagnoses Diagnosis [...] documented as of this encounter Care Teams Faa Certified Powerplant Mechanic Relationship Specialty Start Date End Date Kai Shea MD [address] [place] [address] PCP - General 03/13/21 Jessica Perales DO [address] [place] [address] Resident Neurology 06/16/21 documented as of this encounter
--- OUTSIDE RECORDS SUMMARY | 2025-05-29 09:31 | XMS_ITS | Clinical Summary ---
Author Organization [facility] Address [address] [place] [address] Care Team Providers Care Hose Inspector And Patcher Name Role Phone Kai Shea MD Primary Care Provider [phone] Jessica Perales DO Unavailable [phone] Allergies No known active allergies Medications atorvastatin [...] Type Department Care Team Description 04/22/2025 [facility] [place] [facility] [place] [address] Monica Sue MD from Last 3 Months Immunizations Immunization Administration Dates Next Due [employer] COVID-19 Vaccine (Purple Cap) 12 + 01/16/2021,12/24/2020 [...] drink first t vane in the morning (EYE-SECURITY SUPPORT ANALYST) to steady your nerves or to [...] Appointment [facility] Radiology [address] [place] [address] Health Maintenance Due Date Last Done Comments [facility]-Medicare Annual Wellness (AWV) 1950 [facility]-/Child/Adol SDOH Screenings 1950 [facility]-Zoster Vaccines (1 of 2) 1969 CT Colonography 1995 Colonoscopy 1995 FIT-DNA 1995 FIT 1995 FOBT 1995 Sigmoidoscopy 1995 [facility]-Colorectal Cancer Screening 1995 [facility]-RSV Vaccine: 60+ Years or (1 - Risk 60-74 years 1-dose series) 2010 [facility]-Pneumococcal Vaccine: 50+ Years (2 of 2 - PPSV23) 03/16/2019 01/19/2019 [id number] Vaccine ( season) 2024 10/08/2021, 01/16/2021, 12/24/2020 [...] Antibody Negative Negative 05/03/2024 5:39 PM EDT [facility] Blood Venous blood specimen / Unknown Venipuncture / Unknown 05/03/2024 4:48 PM EDT 05/03/2024 4:58 PM EDT us Rome Dominguez MD LAB BLOOD ORDERABLES Final Result Performing Organization Address City/State/[facility] Co de Phone Number HEALTHCARE LAB [address] [place] [address] from Last 3 Months or Most Recently Relevant to Health Maintenance Insurance PENDING SALE [place] [address] Advance Directives Documents on File Type Date Recorded Patient Truss Builder Expl anation Advance Directives and Living Will 05/04/2024 2:43 PM patient does not hav e an AD * Full Code (Latest Code Status on File) Date Activated Date Inactivated Comments 05/03/2024 10:21 PM 05/05/2024 2:20 PM Question Answer Comments Patient has decision-making capacity? Yes Care Teams Hose Inspector And Patcher Relationship Specialty Start Date End Date Kai Shea MD [address] [place] [address] PCP - General 03/13/21 Jessica Perales DO [address] [place] [address] Resident Neurology 06/16/21
--- OUTSIDE RECORDS SUMMARY | 2025-05-29 09:31 | XMS_ITS | Encounter Summary ---
Author Organization Healthcare Address [address] [place] [address] Care Team Providers Care Software Development Advisor Name Role Phone Kai Shea MD Primary Care Provider [phone] Jessica Perales DO Unavailable [phone] Encounter Details Date Type Department Care Team (Late st Contact Info) Description 12/31/2024 Lab Requisition [facility] [address] [place] [address] Valdo Carrillo, CARLOS [address] [place] [address] Encounter for general adult medical examination without [...] drink first t vane in the morning (EYE-BAND SAW MARKER) to steady your nerves or to get [...] Appointment [facility] A Radiology [address] [place] [address] documented as of this encounter Procedures Procedure [...] LAB HEMATOLOGY METHOD 01/01/2025 2:08 PM EST [facility] Specimen Source, Body Fluid LAB HEMATOLOGY METHOD 01/01/2025 2:08 PM EST [facility] Clinical Diagnosis, Body Fluid Joint fluid. Neuropathy. History of plasma cell neoplasm and Parkinson's LAB HEMATOLOGY METHOD 01/01/2025 2:08 PM EST [facility] Interpretation , Body Fluid No evidence of malignancy; acute inflammatory cells. See comment A resident was involved in the service. I attest I examined the relevant preparations for the specimens and confirmed the diagnosis or interpretation. 01/01/2025 2:08 PM EST [facility] Pathologist Signature, Body Fluid 01/01/2025 2:08 PM EST [facility] Comment:Reviewed by: Prashanth Montiel MD LAB CP ASR DISCLAIMER Yes 01/01/2025 2:08 PM EST [facility] Joint Fluid 12/31/2024 3:15 PM EST 12/31/2024 6:01 PM EST Narrative [facility] - 01/01/2025 2:08 PM EST Correlation with microbiology studies is suggested. Valdo GONZALEZ LAB BODY FLUIDS AND STOOLS ORDERABLES Final Result [facility] [address] [place] [address] * (ABNORMAL) Body Fluid Cell Count w/ Diff (12/31/2024 3:15 PM EST) Color, Body fluid Yellow LAB HEMATOLOGY METHOD 12/31/2024 8:00 PM EST [facility] Appearance, Body fluid Cloudy(A) LAB HEMATOLOGY METHOD 12/31/2024 8:00 PM EST [facility] Volume, Body fluid 2.5 cc LAB HEMATOLOGY METHOD 12/31/2024 8:00 PM EST [facility] Fluid Container Specimen received in EDTA tube LAB HEMATOLOGY METHOD 12/31/2024 8:00 PM EST [facility] Red Blood Cell Count, Body fluid 5,000 uL LAB HEMATOLOGY METHOD 12/31/2024 8:00 PM EST [facility] Total Nucleated Cell Count, Body fluid 44,000 uL LAB HEMATOLOGY METHOD 12/31/2024 8:00 PM EST [facility] Neutrophils %, Body fluid 95 % LAB HEMATOLOGY METHOD 12/31/2024 8:00 PM EST [facility] Lymphocytes %, Body fluid 1 % LAB HEMATOLOGY METHOD 12/31/2024 8:00 PM [facility] Monocytes/Macro phages %, Body fluid 4 % LAB HEMATOLOGY METHOD 12/31/2024 8:00 PM [facility] Eosinophils %, Body fluid 0 % LAB HEMATOLOGY METHOD 12/31/2024 8:00 PM [facility] Lining/Mesothel ial Cells %, Body fluid 0 % LAB HEMATOLOGY METHOD 12/31/2024 8:00 PM EST [facility] Neutrophils Absolute (PMN), Body fluid 41,800 uL LAB HEMATOLOGY METHOD 12/31/2024 8:00 PM [facility] Lymphocytes Absolute, Body fluid 440 uL LAB HEMATOLOGY METHOD 12/31/2024 8:00 PM [facility] Monocytes/Macro phages Absolute, Body fluid 1,760 uL LAB HEMATOLOGY METHOD 12/31/2024 8:00 PM [facility] Eosinophils Absolute, Body fluid 0 uL LAB HEMATOLOGY METHOD 12/31/2024 8:00 PM EST [facility] Basophils Absolute, Body fluid 0 uL LAB HEMATOLOGY METHOD 12/31/2024 8:00 PM EST [facility] Lining/Mesothel ial Cells Absolute, Body fluid 0 uL LAB HEMATOLOGY METHOD 12/31/2024 8:00 PM EST [facility] Comment, Body fluid None LAB HEMATOLOGY METHOD 12/31/2024 8:00 PM EST [facility] Comment:This is an appended report. These results have been appended to a previously preliminary verified report. Basophils %, Body fluid 0 % LAB HEMATOLOGY METHOD 12/31/2024 8:00 PM EST [facility] Joint Fluid 12/31/2024 3:15 PM EST 12/31/2024 6:01 PM EST us Valdo GONZALEZ LAB BODY FLUIDS AN D STOOLS ORDERABLES NO SPECIMEN TYPE/SOURCE Final Result Performing Organization Address [facility] Co de Phone Number [facility] [address] [place] [address] * (ABNORMAL) Synovial fluid, crystal (12/31/2024 3:15 PM EST) Crystals, Joint Fluid Calcium Pyrophosphate Crystals Present(A) No Crystals Present 12/31/2024 11:06 PM EST [facility] Joint Fluid 12/31/2024 3:15 PM EST 12/31/2024 6:01 PM EST Narrative [facility] - 12/31/2024 11:06 PM EST Under compensated polarized light microscopy rhomboidal positively birefringent crystals are seen consistent with Calcium Pyrophosphate. The presence of steroid crystals may result in a false positive. Correlate results with recent history up to 2 months of steroid injection. us Valdo GONZALEZ LAB BODY FLUIDS AND STOOLS ORDERABLES Final Result Performing Organization Address [facility] Co de Phone Number [facility] [address] [place] [address] documented in this encounter Visit Diagnoses Diagnosis [...] documented as of this encounter Care Teams Software Development Advisor Relationship Specialty Start Date End Date Kai Shea MD [address] [place] [address] PCP - General 03/13/21 Jessica Perales DO [address] [place] [address] Resident Neurology 06/16/21 documented as of this encounter
--- OUTSIDE RECORDS SUMMARY | 2025-05-29 09:31 | XMS_ITS | Clinical Summary ---
Author Organization [facility] Address [address] [facility] [address] [place] [address] Phone Care Team Providers Care Flavorings Compounder Name Role Phone Unavailable Primary Care Provider [...] age to complete this topic Insurance [facility] FEDERAL MEDICARE [place] PART A AND B FEDERAL
[2025-05-29 10:17] LABS: Activated Partial Thrombo Time 25.9 seconds (22.8-30.6); INR 1.28 (0.9-1.1); Prothrombin Time 14.0 seconds (10.1-12.5)
== END 2025-05-29 09:38 | disposition home or self-care (01) ==
LOC: LAB 09:29 → INF 09:31
PROVIDERS: PCP Family Medicine; Visit Provider Internal Medicine Medical Oncology
DX: D47.2 Monoclonal gammopathy (principal)
CPT/HCPCS: 36415; 85610; 85730

== ENCOUNTER 2025-06-05 08:55 | Outpatient (CLI) | payer MEDICARE, BC, SELFPAY ==
--- OUTSIDE RECORDS SUMMARY | 2025-03-26 07:30 | XMS_ITS ---
Author Organization [facility] Address [address] [id number] Care Team Providers Care Kaiwhakahaere Name Role Phone Nas Shea Primary Care Provider [phone] Jessie Velez Unavailable [phone] Allergies No Known Allergies REASON FOR VISIT [...] Encounters Encounter Location Date Provider Diagnosis [facility] [address] [place] [address] [address] [place], [place] [id number] 03/26/2025 Jessie Velez Hypotension I95.9 ; Edema [...] Provider Name:Nas Solis, 07/02/2025 09:15:00 AM, 1210 [facility] 36 [facility], [address], [place], [place], [id number], Progress Notes * ANGIE SWANOB: 0 (74 yo M)Acc No.[id number]:03/26/2025 Progress Notes Patient: Henry SHIRAJAGRUTI MORALESENCE Provider: GABRIELLE Sanders :1950 A ge:74 Y S ex:Male Date:03/26/2025 Address:[address] [place] [address] LUIZ KAMINSKI , [id number] Pcp:Nas Shea Subjective: * Chief Complaints: * [...] diuretics adjusted. He has not seen a back hoe operator. During walking test today in clinic his [...] Open Heart Surgery-Dr Mott @ [facility] 12/2015, thoracentesis 12/2015, Laparoscopic cholecystectomy - Dr. Wallace 09/06/16, cardiac defibirilltor placed-Dr Yates 07/04/2020, cataract surgery-right eye 12/2020, Knee Surgery - Due to Infection -01/2025. * Hospitalization/Major Diagno stic Procedure: H ER-suture to pinky finger of left hand 09/25/09, C-scope - Dr. Kimball 09/2013, [facility] ER-Afib 01/2016, [facility] pancreat[facility] 09/02/16, Left heart cath/[place]/ normal flow of revascularized vessels 02/2017, [facility]-tachycardia 07/02 to 07/03/2020, [facility] UTC - Fall 11/14/2023. * Family [...] AD , alert , pleasant; presents with resident care spec in a wheelchair. H eart: R RR. [...] * Images: Billing Information: * Visit Code: 56806 Office Visit, Est Pt., Level 3. * Procedure Codes: G2211 Complex e/m visit add on. G8420 BMI<30 AND >=22 CALC & DOCU. G8950 PREHTN/HTN BP DOC INDCD F/U DOC. G8752 MOST RECENT SYSTOLIC BP < 140MM HG. G8754 MOST RECENT DIASTOLIC BP < 90MM HG. * Electronic signature of Dahlia Velez APRN on 06/05/2025 at 09:02 AM EDT Sign off status: Pending * Provider: GABRIELLE Sanders Date: 0 03/26/2025 Generated for Galilea lozano/Ken/Stevenitting on: 0 06/05/2025 09:02 AM EDT History and Physical Notes * [...] , alert , pleasa nt; presents with resident care spec in a wheelchair Neurologic Exam: alert and oriented
--- OUTSIDE RECORDS SUMMARY | 2025-04-18 05:00 | XMS_ITS ---
Author Organization [facility] Address [address] [place] [address] 36 [facility] [address] [place] [phone] Care Team Providers Care Safe Deposit Attendant Name Role Phone Nas Shea Primary Care Provider REASON FOR VISIT 6 months Encounters Encounter Location Date Provider Diagnosis [facility] 1210 [facility] 36 [facility] [address] [place] [id number] 04/18/2025 Nas Shea Plan Of Treatment Next Appt Details Provider Name:Nas Anand et, 07/02/2025 09:15:00 AM, 1210 [facility] 36 [facility], [address], [place], [place], [phone], Progress Notes * ANGIE SWANOB: 0 (74 yo M)Acc No.[id number]:04/18/2025 Progress Notes Patient: Henry KEV CHEUNG Provider: Nas Shea M.D. :1950 A ge:74 Y S ex:Male Date:04/18/2025 Address:[address] [place] [address] TODD KAMINSKI , [place], [id number] Subjective: * Chief Complaints: * 1 . 6 months. * Medical History: Objective: * Vitals: Assessment: Plan: * Treatment: * Images: Billing Information: * Visit Code: * Procedure Codes: * Electronic signature of Nas Shea MD on 06/05/2025 at 09:03 AM EDT Sign off status: Pending * Provider: Nas Shea M.D. Date: 0 04/18/2025 Generated for Galilea lozano/Ken/Lynn on: 0 06/05/2025 09:03 AM EDT
--- OUTSIDE RECORDS SUMMARY | 2025-04-25 07:30 | XMS_ITS ---
Author Organization [facility] Address [address] [id number] Care Team Providers Care Surveillance Dual Rate Officer Name Role Phone Nas Shea Primary Care [...] Risk Notes Problem Cardiac pacemaker in situ ([id number]) Pacemaker (Z95.0) Active confirmed Vital Signs Blood pressure systolic 112 mm Hg 04/25/20 25 Blood pressure diastolic 64 mm Hg 025 Heart Rate 78 /min 04/25/2025 Height 72 in 04/25/2025 Weight 187 lbs 04/25/2025 BMI 25.36 kg/m2 04/25/2025 Encounters Encounter Location Date Provider Diagnosis [facility] [address] [place], [place] [id number] 04/25/2025 R Jesus Monse Pacemaker Z95.0 ; [...] 3 Months, Reason: Provider Name:Nas Anand et, 07/02/2025 09:15:00 AM, [address] [facility], [address] , [place], [place], [id number], Progress Notes * JAGRUTI SWANENCEDOB: 0 (74 yo M)Acc No.[id number]:04/25/2025 Progress Notes Patient: KEV LUZ Provider: Nas Shea M.D. :1950 A ge:74 Y S ex:Male Date:04/25/2025 Address:[address] [place] [address] YAMILEX , [facility]-[id number] Subjective: * Chief Complaints: * 1 . Skin Tear on Left Arm Possibly Infected. * HPI: C ardiology: He had a permanent pacemaker placed yesterday by Dr. Yates. Xarelto is currently on hold. His Lasix dose was increased. He tells me the inspector hairspring would like for him to wean off [...] stents 03/08/2007, Open Heart Surgery-Dr Mott @ [facility] 12/2015, thoracentesis 12/2015, Laparoscopic cholecystectomy - Dr. Wallace 09/06/2016, cardiac defibirilltor placed-Dr Yates 07/04/2020, cataract surgery-right eye 12/2020, Knee Surgery - Due to Infection -01/2025, Cardiac Pacemaker 04/24/2025. * Hospitalization/Major Diagno stic Procedure: H ER-suture to pinky finger of left hand 09/25/2009, C-scope - Dr. Kimball 09/2013, [facility] ER-Afib 01/2016, [facility]-Gallstone pancreatitis 09/02/2016, Left heart cath/[place]/ normal flow of revascularized vessels 02/2017, [facility]-tachycardia 07/02-12/2019, [facility] UTC - Fall 11/14/2023. * [...] ultiple myeloma - C90.00 9 . B NC 25.0-25.9,adult - Z68.25 ? Plan: * Treatment: [...] * Images: Billing Information: * Visit Code: 10153 Office Visit, Est Pt., Level 4. * Procedure Codes: G2211 Complex e/m visit add on. 1036F TOBACCO NON-USER. G8420 BMI<30 AND >=22 CALC & DOCU. G8783 BP SCR PRFRM RCMDD DEFIND SCR INTVL. G8752 MOST RECENT SYSTOLIC BP < 140MM HG. G8754 MOST RECENT DIASTOLIC BP < 90MM HG. * Electronic signature of Nas Shea MD on 06/05/2025 at 09:02 AM EDT Sign off status: Pending * Provider: Nas Shea M.D. Date: 0 04/25/2025 Generated for Galilea lozano/Ken/Lynn on: 0 06/05/2025 09:02 AM EDT History [...] sterile dressing. Cardiology He tells me the inspector hairspring would like for him to wean off [...]
--- OUTSIDE RECORDS SUMMARY | 2025-06-05 09:03 | XMS_ITS | Encounter Summary ---
Author Organization Healthcare Address [address] [place] [address] Care Team Providers Care Permit Agent Name Role Phone Kai Shea MD Primary Care Provider [phone]- [phone] Jessica Perales DO Unavailable [phone] Encounter Details Date Type Department Care Team (Late st Contact Info) Description 12/31/2024 Lab Requisition [facility] [address] [place] [address] Valdo Carrillo, CARLOS [address] [place] [address] Encounter for general adult medical examination without [...] place to sleep or slept in a mcc (including now)? No 05/04/2024 PHQ-9 Answer Date [...] drink first t vane in the morning (EYE-SLUG PRESS OPERATOR) to steady your nerves or to [...] has been identified using the FDA Approved Hybrid [employer] [place] System The organism value for this [...] Final Result [facility] [address] [place] [address] documented in this encounter Visit Diagnoses Diagnosis [...] documented as of this encounter Care Teams Permit Agent Relationship Specialty Start Date End Date Kai Shea MD [address] [place] [address] PCP - General 03/13/21 Jessica Perales DO [address] [facility] [address] [place] [address] Resident Neurology 06/16/21 documented as of this encounter
--- OUTSIDE RECORDS SUMMARY | 2025-06-05 09:03 | XMS_ITS | Encounter Summary ---
Author Organization [place] [address] Care Team Providers Care Smart Grid Engineer Name Role Phone Unavailable Primary Care Provider Unavailabl e Encounter Details Date Type Department Care Team (Late st Contact Info) Description 01/07/2023 Orders Only [facility] [place] [id number] Barbara Bess MD [address] [place] [phone] Social History Tobacco Use Types Packs/Day Years [...] AM EST) 01/07/2023 9:45 AM EST Narrative [facility] - 01/24/2023 5:22 PM EDT Requesting Provider: GIOVANNA Chaney Specimen = [id number] us Barbara Bess MD PATHOLOGY ORDERABLES Final Resul t [facility] [address] [place] [address] documented in this encounter Visit Diagnoses Not on filedocumented in this encounter
--- OUTSIDE RECORDS SUMMARY | 2025-06-05 09:03 | XMS_ITS | Clinical Summary ---
Author Organization [facility] Address [address] [facility] [address] [place] [address] Phone Care Team Providers Care Transportation Analyst Name Role Phone Unavailable Primary Care [...] age to complete this topic Insurance FEDERAL [facility] FEDERAL MEDICARE [place] PART A AND B FEDERAL
--- OUTSIDE RECORDS SUMMARY | 2025-06-05 09:03 | XMS_ITS | Patient Health Record ---
Author Organization [facility] Address [address] [place] [id number] Care Team Providers Care Catalyst Operator Name Role Phone Nas Shea Primary Care Provider Jessie Velez Unavailable [phone] Allergies No Known Allergies Results Component Value Reference Range Notes P-TSH Reviewed date:10/20/2024 11:28:50 AM Interpretation:Normal Performing Lab: Notes/Report: Test performed by [facility] [address] [place], [place] [address] [place] , [address], [place] [address] Renato Cobb MD, Pinsetter Mechanic Helper CLIA: [id number] TSH 2.38 0.43-5.25 mU/L P-PSA Reviewed date:10/20/2024 11:28:50 AM Interpretation:4.34 Performing Lab: Notes/Report: Test performed by [facility] [address] [place] [address] , [address], [place] [address] Renato Cobb MD, Pinsetter Mechanic Helper CLIA: [id number] PSA 4.34 <4.00 ng/mL Please note this is an ultrasensitive PSA assay with a lower limit of detection of 0.014 ng/mL. This test is performed by the Becki ECLIA methodology. Values obtained with different assay methods or kits cannot be directly compared. P-Lipid Panel Reviewed date:10/20/2024 11:28:49 AM Interpretation:Normal Performing Lab: Notes/Report: Test performed by [facility] [address] [place], [place] [address] [place] , [address], [place] [address] Renato Cobb MD, Pinsetter Mechanic Helper CLIA: [id number] Cholesterol 128 <200 mg/dL Triglycerides 147 <150 [...] 6.4 glycohemoglobin 6.4% 5 - 6.5 % H-BMP Reviewed date:01/02/2025 08:41:58 AM Interpretation: Performing Lab: Notes/Report: NA 136 136-145 mmol/L K 4.4 3.5-5.1 mmoL/L CL 101 98-107 mmol/L CO2 28 22.0-30.0 mmol/L GAP 11.4 5-15 mEq/L BUN 31 9-20 mg/dl CREATT 0.90 0.66-1.25 mg/dl CRCLE 84 50-200 mL/min GFRAA 100 >60 ML/MIN EGFR 82 >60 ml/min GLU 119 74-100 mg/dl CA 8.8 8.4-10.2 mg/dl H-CBC Reviewed date:01/02/2025 08:41:58 AM Interpretation: Performing [...] 0.0 0.0-0.4 K/mm3 BA# 0.0 0-0.2 K/mm3 P-Hemoglobin A1C Reviewed date:02/07/2025 08:17:27 AM Interpretation: Performing Lab: Notes/Report: Test performed by [facility] [address] [place] [address] , [place] [address] Renato Cobb MD, Pinsetter Mechanic Helper CLIA: [id number] Hemoglobin A1C 6.9 <5.7 % The following HbA1c ranges recommended by the [place] Diabetes Association (ADA) may be used as an aid in the diagnosis of diabetes mellitus. HbA1c Suggested Diagnosis >=6.5% Diabetic 5.7% - 6.4% Pre-Diabetic <5.7% Non-Diabetic P-TSH Reviewed date:02/07/2025 08:17:27 AM Interpretation: Performing Lab: Notes/Report: Test performed by [facility] [address] [place] [address] , [facility] [place] [address] Renato Cobb MD, Pinsetter Mechanic Helper CLIA: [id number] TSH 2.88 0.43-5.25 mU/L Estimated Average Glucose Reviewed date:02/07/2025 08:17:27 AM Interpretation: Performing Lab: Notes/Report: Test performed by [facility] [address] [place] [address] , [place] [address] Renato Cobb MD, Pinsetter Mechanic Helper CLIA: [id number] Estimated Average Glucose (eAG) 151 Estimated Average Glucose (eAG) is calculated using the equation eAG = (28.7 x HbA1c) - 46.7 based on the guidelines established by the ADA. If the patient has certain diseases including kidney disease, sickle cell anemia, thalassemia, or is taking medications such as dapsone, erythropoietin, or iron, eAG should not be evaluated. Medications Medication SIG (Take, Route, Frequency, Duration) [...] W/U Status Risk Notes Problem Coronary arteriosclerosis (58753433) 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) Active confirmed Problem History of circulatory system disease (124173872) History of ASCVD (Z86.79) Active confirmed Problem Essential hypertension (82920171) Essential hypertension (I10) Active confirmed Problem Diabetes mellitus with neuropathy (250045898) Diabetes mellitus with neuropathy (E11.40) Active confirmed Problem Benign prostatic hyperplasia (196577178) BPH (benign prostatic hyperplasia) (N40.0) Active confirmed Problem Peripheral neuropathy (962631644) Peripheral neuropathy (G62.9) Active confirmed Problem Hearing loss (83539994) Hearing loss (H91.90) Active confirmed Problem Chronic tension-type headache (274957859) Chronic tension-type headache, not intractable (G44.229) Active confirmed Problem Chronic pain syndrome (247388031) Chronic pain syndrome (G89.4) Active confirmed Problem Chronic atrial fibrillation (833038956) Chronic atrial fibrillation (I48.2) Active confirmed Problem Hyperlipidemia due to type 2 diabetes mellitus (disorder) (730452950054713) Hyperlipidemia associated with type 2 diabetes mellitus (E11.69) Active confirmed Problem Diabetes mellitus (86174458) Diabetes mellitus (E11.9) Active confirmed Problem Gastroesophageal reflux disease (598374161) GERD without esophagitis (K21.9) Active confirmed Problem Unsteady gait (86083182) Unsteady gait (R26.81) Active confirmed Problem Gastroesophageal reflux disease without esophagitis (780906932) Gastroesophageal reflux disease without esophagitis (K21.9) Active confirmed Problem Acquired hypothyroidism (270604342) Acquired hypothyroidism (E03.9) Active confirmed Problem Cardiac pacemaker in situ (991796184) Pacemaker (Z95.0) Active confirmed Problem Lower urinary tract symptoms due to benign prostatic hypertrophy (23268403040942) Benign non-nodular prostatic hyperplasia with lower urinary tract symptoms (N40.1) Active confirmed Problem Displacement of lumbar intervertebral disc without myelopathy (34621008) Bulging lumbar disc (M51.26) Active confirmed Problem Cardiomyopathy (09515525) Cardiomyopathy (I42.9) Active confirmed Problem Multiple myeloma (788473961) Multiple myeloma (C90.00) Active confirmed Problem Dyslipidemia (923716294) Dyslipidemia (E78.5) Active confirmed Problem Skin ulcer (disorder) (11386340) Skin ulcer, limited to breakdown of skin (L98.491) Active confirmed Problem Restless legs (57414779) RLS (restless legs syndrome) (G25.81) Active confirmed Problem Peripheral circulatory disorder associated with diabetes mellitus (442215109) 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) Active confirmed Problem Lumbar spondylosis with myelopathy (89007425) Lumbar spondylosis with myelopathy (M47.16) Active confirmed Problem Significant coronary bypass graft disease (882035825) Coronary artery disease involving coronary bypass graft of tulalip heart without angina pectoris (I25.810) Active confirmed Problem Chronic atrial fibrillation (403064018) Chronic atrial fibrillation (I48.20) Active confirmed Problem Automatic implantable cardiac defibrillator in situ (701835185) Cardiac defibrillator in place (Z95.810) Active confirmed Problem Monoclonal gammopathy of uncertain significance (disorder) (092891517) 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) Active confirmed Problem Pseudogout (244205464) Pseudogout (M11.20) Active confirmed Vital Signs Heart Rate 78 /min 04/25/2025 Blood pressure diastolic 64 mm Hg 04/25/2025 Height 72 in 04/25/2025 Blood pressure systolic 112 mm Hg 04/25/2025 Weight 187 lbs 04/25/2025 BMI 25.36 kg/m2 04/25/2025 Encounters Encounter Location Date Provider Diagnosis [facility] [id number] 10/18/2024 Nas Shea Type 2 diabetes mellitus [...] C90.00 and Screening for prostate cancer Z12.[address] [id number] 01/21/2025 Jessie Velez Septic arthritis of knee M00.9 and Abrasions of multiple sites T07.XXXA [address] [id number] 02/05/2025 Nas Shea 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.59 ; Staphylococcal arthritis of right knee M00.061 ; Acquired hypothyroidism E03.9 ; Multiple myeloma C90.00 ; Diabetes mellitus with neuropathy E11.40 ; Dyslipidemia E78.5 ; Essential hypertension I10 ; Cardiomyopathy I42.9 and BMI 25.0-25.9,adult Z68.25 [facility] [address] [facility] [address] [place] [id number] 03/19/2025 Jessie Velez Edema leg R60.0 ; [...] hyperplasia) N40.0 and Chronic atrial fibrillation I48.20 [facility] [address] [facility] [address] [place] [id number] 03/26/2025 Jessie Velez Hypotension I95.9 ; Edema of both legs R60.0 and BMI 28.0-28.9,adult Z68.28 [facility] [address] [facility] [address] [place], [place] [id number] 04/25/2025 R Jesus Monse Pacemaker Z95.0 ; Sk in tear of forearm without complication S51.819A ; Cardiomyopathy I42.9 ; History of ASCVD Z86.79 ; BPH (benign prostatic hyperplasia) N40.0 ; Diabetes mellitus E11.9 ; Peripheral neuropathy G62.9 ; Multiple myeloma C90.00 and BMI 25.0-25.9,adult Z68.25 [facility] [address] [facility] [address] [place] [id number] 10/19/2024 R Jesus Monse ASCVD (arteriosclero tic cardiovascular disease) I25.10 [facility] [address] [facility] [address] [place], [place] [id number] 10/20/2024 R Jesus Monse [facility] [address] [place], [place] [id number] 01/03/2025 R Jesus Monse [facility] [address] [place] [id number] 02/07/2025 R Jesus Shea [facility] [address] [facility] [address] [facility] [address] [place] [id number] 03/19/2025 R Jesus Shea [facility] [address] [facility] [address] [facility] [address] [place] [id number] 05/21/2025 R Jesus Shea Assessments Encounter Date [...] monitoring BP and taking care with ambulation 04/25/2025 Pacemaker (ICD-10 - Z95.0) 04/25/2025 Skin [...] cardiology appt 04/25/2025 Cardiomyopathy (ICD-10 - I42.9) 03/19/2025 ASCVD (arteriosclerotic cardiovascular disease) (ICD-10 - I25.10) discussed with [facility] cardiology ; reviewed labs and ECHO 02/05/2025 [...] [address], [place], [id number], Insurance Providers Payer Name Payer Address Payer Phone Subscriber Number Group Number Insured Name Patient Relationship to Insured Coverage Start Date Coverage End Date [place] [id number] [place] [address] [phone] [id number] KEV DICK Self - patient is the insured LAINE MELGOZA [address] [place] [address] [id number] KEV DICK Self - patient is the [...] Cardiac Pacemaker 04/24/2025 Hospitalization History Reason Date(Month/Year) [facility] UTC - Fall 11/14/2023 [facility]-tachycardia 07/02-12/2019 Left heart cath/[place]/ normal flow of revascularized vessels 02/2017 [facility] pancreatitis 09/02/2016 [facility] ER-Afib 01/2016 C-scope - Dr. Kimball 09/2013 [facility] ER-suture to pinky finger of left macias nd 09/25/2009
--- OUTSIDE RECORDS SUMMARY | 2025-06-05 09:03 | XMS_ITS | Clinical Summary ---
Author Organization [facility] Address [address] [place] [address] Care Team Providers Care Intranet Specialist Name Role Phone Kai Shea MD Primary Care Provider [phone]- [phone] Jessica Perales DO Unavailable [phone] Allergies No known active allergies Medications atorvastatin [...] Type Department Care Team Description 04/22/2025 [facility] [place] [address] Monica Sue MD from Last 3 Months Immunizations Immunization Administration Dates Next Due [facility] COVID-19 Vaccine (Purple Cap) 12 + 01/16/2021,12/24/2020 [...] place to sleep or slept in a correction (including now)? No 05/04/2024 PHQ-9 Answer Date [...] drink first t vane in the morning (EYE-AUTOMATION ENGINEERING TECHNICIAN) to steady your nerves or to [...] 12/03/2024 1:13 PM EST Plan of Treatment Health Maintenance Due Date Last Done Comments [facility]-Medicare Annual Wellness (AWV) 1950 [facility]-/Child/Adol SDOH Screenings 1950 [facility]- SDOH Screenings 1968 [facility]-Adult SDOH Screenings 1968 [facility]-Zoster Vaccines (1 of 2) 1969 CT Colonography 1995 Colonoscopy 1995 FIT-DNA 1995 FIT 1995 FOBT 1995 Sigmoidoscopy 1995 [facility]-Colorectal Cancer Screening 1995 [facility]-RSV Vaccine: 60+ Years or (1 - Risk 60-74 years 1-dose series) 2010 [facility]-Pneumococcal Vaccine: 50+ Years (2 of 2 - PPSV23) 03/16/2019 01/19/2019 [id number] Vaccine (4 - season) 2024 10/08/2021, 01/16/2021, 12/24/2020 [facility]-Influenza Vaccine (#1) 2025 [facility]-Depression Screening 12/03/2025 12/03/2024, 12/2024 [facility]-DTaP,Tdap,and Td Vaccines (3 - Td or [...] ORDERABLES Final Result [facility] [address] [place] [address] from Last 3 Months or Most Recently Relevant to Health Maintenance Insurance [facility] [place] [address] Advance Directives Documents on File Type Date Recorded Patient Assistant Broker Expl anation Advance Directives and Living Will 05/04/2024 2:43 PM patient does not hav e an AD * Full Code (Latest Code Status on File) Date Activated Date Inactivated Comments 05/03/2024 10:21 PM 05/05/2024 2:20 PM Question Answer Comments Patient has decision-making capacity? Yes Care Teams Intranet Specialist Relationship Specialty Start Date End Date Kai Shea MD [address] [place] [address] PCP - General 03/13/21 Jessica Perales DO [address] [facility] [address] [place] [address] Resident Neurology 06/16/21
--- OUTSIDE RECORDS SUMMARY | 2025-06-05 09:03 | XMS_ITS | Encounter Summary ---
Author Organization Healthcare Address [address] [place] [address] Care Team Providers Care Cylinder Grinder Name Role Phone Kai Shea MD Primary Care Provider [phone]- [phone] Jessica Perales DO Unavailable [phone] Encounter Details Date Type Department Care Team (Late st Contact Info) Description 11/05/2024 Orders Only [place] [facility] [address] [place] [address] [place], DO [address] [place] [id number] Neuropathy Social History Tobacco Use Types Packs/Day [...] in a half-way (including now)? No 05/04/2024 CAGE ASSESSMENT Answer [...] drink first t vane in the morning (EYE-COFFEE BREWER) to steady your nerves or to get [...] on file documented as of this encounter Visit Diagnoses Diagnosis Neuropathy Mononeuritis of unspecified site documented in this encounter Additional Health Concerns Assessment Noted Time A fall risk assessment has been complete d for the patient 12/19/2023 3:03 PM EST A Body Mass Index follow-up plan has been documented for the patient 05/05/2024 11:32 AM EDT documented as of this encounter Care Teams Cylinder Grinder Relationship Specialty Start Date End Date Kai Shea MD [address] [place] [address] PCP - General 03/13/21 Jessica Perales DO [address] [place] [address] Resident Neurology 06/16/21 documented as of this encounter
--- OUTSIDE RECORDS SUMMARY | 2025-06-05 09:03 | XMS_ITS | Encounter Summary ---
Author Organization Healthcare Address [address] [place] [address] Care Team Providers Care Pneumatic Tube Operator Name Role Phone Kai Shea MD Primary Care Provider [phone]- [phone] Jessica Perales DO Unavailable [phone] Encounter Details Date Type Department Care Team (Late st Contact Info) Description 12/31/2024 Lab Requisition [facility] [address] [place] [address] Valdo Carrillo, CARLOS [address] [place] [address] Encounter for general adult medical examination without [...] drink first t vane in the morning (EYE-MACHINE ROUGH ROUNDER) to steady your nerves or to get [...] LAB HEMATOLOGY METHOD 01/01/2025 2:08 PM EST [facility] Specimen Source, Body Fluid LAB HEMATOLOGY METHOD 01/01/2025 2:08 PM EST [facility] Clinical Diagnosis, Body Fluid Joint fluid. Neuropathy. History of plasma cell neoplasm and Parkinson's LAB HEMATOLOGY METHOD 01/01/2025 2:08 PM EST [facility] Interpretation , Body Fluid No evidence of malignancy; acute inflammatory cells. See comment A resident was involved in the service. I attest I examined the relevant preparations for the specimens and confirmed the diagnosis or interpretation. 01/01/2025 2:08 PM EST [facility] Pathologist Signature, Body Fluid 01/01/2025 2:08 PM EST [facility] Comment:Reviewed by: Prashanth Montiel MD LAB CP ASR DISCLAIMER Yes 01/01/2025 2:08 PM EST [facility] Joint Fluid 12/31/2024 3:15 PM EST 12/31/2024 6:01 PM EST Narrative [facility] - 01/01/2025 2:08 PM EST Correlation with microbiology studies is suggested. us Valdo GONZALEZ LAB BODY FLUIDS AND STOOLS ORDERABLES Final Result [facility] [address] [place] [address] * (ABNORMAL) Body Fluid Cell Count w/ Diff (12/31/2024 3:15 PM EST) Color, Body fluid Yellow LAB HEMATOLOGY METHOD 12/31/2024 8:00 PM [facility] Appearance, Body fluid Cloudy(A) LAB HEMATOLOGY METHOD 12/31/2024 8:00 PM [facility] Volume, Body fluid 2.5 cc LAB HEMATOLOGY METHOD 12/31/2024 8:00 PM [facility] Fluid Container Specimen received in EDTA tube LAB HEMATOLOGY METHOD 12/31/2024 8:00 PM [facility] Red Blood Cell Count, Body fluid 5,000 uL LAB HEMATOLOGY METHOD 12/31/2024 8:00 PM [facility] Total Nucleated Cell Count, Body fluid 44,000 uL LAB HEMATOLOGY METHOD 12/31/2024 8:00 PM [facility] Neutrophils %, Body fluid 95 % LAB HEMATOLOGY METHOD 12/31/2024 8:00 PM [facility] Lymphocytes %, Body fluid 1 % LAB HEMATOLOGY METHOD 12/31/2024 8:00 PM [facility] Monocytes/Macro phages %, Body fluid 4 % LAB HEMATOLOGY METHOD 12/31/2024 8:00 PM [facility] Eosinophils %, Body fluid 0 % LAB HEMATOLOGY METHOD 12/31/2024 8:00 PM [facility] Lining/Mesothel ial Cells %, Body fluid 0 % LAB HEMATOLOGY METHOD 12/31/2024 8:00 PM [facility] Neutrophils Absolute (PMN), Body fluid 41,800 uL LAB HEMATOLOGY METHOD 12/31/2024 8:00 PM [facility] Lymphocytes Absolute, Body fluid 440 uL LAB HEMATOLOGY METHOD 12/31/2024 8:00 PM [facility] Monocytes/Macro phages Absolute, Body fluid 1,760 uL LAB HEMATOLOGY METHOD 12/31/2024 8:00 PM [facility] Eosinophils Absolute, Body fluid 0 uL LAB HEMATOLOGY METHOD 12/31/2024 8:00 PM [facility] Basophils Absolute, Body fluid 0 uL LAB HEMATOLOGY METHOD 12/31/2024 8:00 PM [facility] Lining/Mesothel ial Cells Absolute, Body fluid 0 uL LAB HEMATOLOGY METHOD 12/31/2024 8:00 PM EST [facility] Comment, Body fluid None LAB HEMATOLOGY METHOD 12/31/2024 8:00 PM EST [facility] Comment:This is an appended report. These results have been appended to a previously preliminary verified report. Basophils %, Body fluid 0 % LAB HEMATOLOGY METHOD 12/31/2024 8:00 PM EST [facility] Joint Fluid 12/31/2024 3:15 PM EST 12/31/2024 6:01 PM EST Valdo GONZALEZ LAB BODY FLUIDS AN D STOOLS ORDERABLES NO SPECIMEN TYPE/SOURCE Final Result Performing Organization Address [facility] Co de Phone Number [facility] [address] [place] [address] * (ABNORMAL) Synovial fluid, crystal (12/31/2024 3:15 PM EST) Crystals, Joint Fluid Calcium Pyrophosphate Crystals Present(A) No Crystals Present 12/31/2024 11:06 PM EST [facility] Joint Fluid 12/31/2024 3:15 PM EST 12/31/2024 6:01 PM EST Narrative [facility] - 12/31/2024 11:06 PM EST Under compensated polarized light microscopy rhomboidal positively birefringent crystals are seen consistent with Calcium Pyrophosphate. The presence of steroid crystals may result in a false positive. Correlate results with recent history up to 2 months of steroid injection. Valdo GONZALEZ LAB BODY FLUIDS AND STOOLS ORDERABLES Final Result Performing Organization Address [facility] Co de Phone Number [facility] [address] [place] [address] documented in this encounter Visit Diagnoses Diagnosis [...] documented as of this encounter Care Teams Pneumatic Tube Operator Relationship Specialty Start Date End Date Kai Shea MD [address] [place] [address] PCP - General 03/13/21 Jessica Perales DO [address] [facility] [address] [place] [address] Resident Neurology 06/16/21 documented as of this encounter
--- OUTSIDE RECORDS SUMMARY | 2025-06-05 09:03 | XMS_ITS | Encounter Summary ---
Author Organization [place] [address] Care Team Providers Care Psychologist Personnel Name Role Phone Unavailable Primary Care Provider Unavailabl e Encounter Details Date Type Department Care Team (Late st Contact Info) Description 01/07/2023 Orders Only [facility] [place] [id number] Barbara Bess MD [address] [place] [phone] Social History Tobacco Use Types Packs/Day Years [...] Procedure Name Priority Date/Time Associated Diagnosis Comments AskYou STANDARD LEUKEMIA/LYMPHOMA PANEL Routine 01/07/2023 9:45 AM EST documented in this encounter Results * NEOGENOMICS STANDARD LEUKEMIA/LYMPHOMA PANEL (01/07/2023 9:45 AM EST) 01/07/2023 9:45 AM EST Narrative [facility] - 01/10/2023 3:22 PM EDT Requesting Provider: GIOVANNA Chaney Specimen = [id number] us Barbara Bess MD PATHOLOGY ORDERABLES Final Resul t Performing Organization Address City/State/[facility] Co de Phone Number [facility] [address] [place] [address] documented in this encounter Visit Diagnoses Not on filedocumented in this encounter
--- OUTSIDE RECORDS SUMMARY | 2025-06-05 09:03 | XMS_ITS | Encounter Summary ---
Author Organization Healthcare Address [address] [place] [address] Care Team Providers Care Supervisor Boat Outfitting Name Role Phone Kai Shea MD Primary Care Provider [phone] Jessica Perales DO Unavailable [phone] Encounter Details Date Type Department Care Team (Late st Contact Info) Description 04/22[facility] [place] [facility] [address] [place] [address] Monica Sue MD [address] [place] [address] Social History Tobacco Use Types [...] place to sleep or slept in a skilled nursing (including now)? No 05/04/2024 PHQ-9 Answer Date [...] drink first t vane in the morning (EYE-DUAL RATE SUPERVISOR) to steady your nerves or to get [...] documented as of this encounter Care Teams Supervisor Boat Outfitting Relationship Specialty Start Date End Date Kai Shea MD [address] [place] [address] PCP - General 03/13/21 Jessica Perales DO [address] [place] [address] Resident Neurology 06/16/21 documented as of this encounter
--- OUTSIDE RECORDS SUMMARY | 2025-06-05 09:03 | XMS_ITS | Encounter Summary ---
Author Organization [employer] [place] [address] Care Team Providers Care Solid Waste Management Engineer Name Role Phone Unavailable Primary Care Provider Unavailabl e Encounter Details Date Type Department Care Team (Late st Contact Info) Description 01/07/2023 Orders Only [facility] [place] [id number] Barbara Bess MD [address] [place] [phone] Social History Tobacco Use Types Packs/Day Years [...] EST) 01/07/2023 9:45 AM EST Narrative [facility] - 01/16/2023 11:22 AM EDT Requesting Provider: GIOVANNA Chaney Specimen = [id number] us Barbara Bess MD PATHOLOGY ORDERABLES Final Resul t Performing Organization Address City/State/[facility] Co de Phone Number [facility] [address] [place] [address] documented in this encounter Visit Diagnoses Not on filedocumented in this encounter
--- OUTSIDE RECORDS SUMMARY | 2025-06-05 09:03 | XMS_ITS | Clinical Summary ---
Author Organization [facility] Address [address] [place] [address] Care Team Providers Care It Security Consultant Name Role Phone Kai Shea MD Primary [...] Payer (Ef fective 2015-Present) Name:Kaleb Swan Member ID:[id number] Relation to Subscriber:Self Name:Kaleb Swan Subscriber ID:[id number] Payer ID:[id number] Group ID:Not on file Type:Not on file Address: [facility] [id number] Care Teams It Security Consultant Relationship Specialty Start Date End Date Kai Shea MD [address] [place] [facility] [address] [facility] [address] [facility] [place] [address] PCP - General Family Medicine 04/05/23
--- OUTSIDE RECORDS SUMMARY | 2025-06-05 09:03 | XMS_ITS | Encounter Summary ---
Author Organization [place] [address] Care Team Providers Care Law Firm Partner Name Role Phone Unavailable Primary Care Provider Unavailabl e Encounter Details Date Type Department Care Team (Late st Contact Info) Description 01/07/2023 Orders Only [facility] [place] [phone] Barbara Bess MD [address] [place] [phone] Social History Tobacco Use Types Packs/Day Years [...] Narrative [facility] - 01/17/2023 1:28 PM EDT Requesting Provider: GIOVANNA Chaney Specimen = [id number] us Barbara Bess MD PATHOLOGY ORDERABLES Final Resul t [facility] [address] [place] [address] documented in this encounter Visit Diagnoses Not on filedocumented in this encounter
--- OUTSIDE RECORDS SUMMARY | 2025-06-05 09:04 | XMS_ITS | Encounter Summary ---
Author Organization Healthcare Address [address] [place] [address] Care Team Providers Care Radiology Specialist Name Role Phone Kai Shea MD Primary Care Provider [phone]- [phone] Jessica Perales DO Unavailable [phone] Encounter Details Date Type Department Care Team (Late st Contact Info) Description 01/15/2025 Lab Requisition [facility] [address] [place] [address] Sara Alegre [address] [place] [address] Encounter for general adult medical examination without [...] place to sleep or slept in a intermediate (including now)? No 05/04/2024 PHQ-9 Answer Date [...] drink first t vane in the morning (EYE-INNERSOLE FITTER) to steady your nerves or to get [...] LAB HEMATOLOGY METHOD 01/16/2025 4:15 PM EDT [facility] Specimen Source, Body Fluid LAB HEMATOLOGY METHOD 01/16/2025 4:15 PM EDT [facility] Clinical Diagnosis, Body Fluid Joint effusion LAB HEMATOLOGY METHOD 01/16/2025 4:15 PM EDT [facility] Interpretation , Body Fluid Acute inflammatory cells; correlate with Gram stain/culture and/or crystal analysis. A resident was involved in the service. I attest I examined the relevant preparations for the specimens and confirmed the diagnosis or interpretation. 01/16/2025 4:15 PM EDT [facility] Pathologist Signature, Body Fluid 01/16/2025 4:15 PM EDT [facility] Comment:Reviewed by: Isabel Donohue MD LAB CP ASR DISCLAIMER Yes 01/16/2025 4:15 PM EDT [facility] Joint Fluid 01/15/2025 12:1 0 PM EDT 01/15/2025 2:41 PM EDT us Sara Codey LAB BODY FLUIDS AND STOOLS ORDER MARYLIN Final Result [facility] [address] [place] [address] * (ABNORMAL) Joint Fluid Crystals (01/15/2025 12:10 PM EDT) Crystals, Joint Fluid Calcium Pyrophosphate Crystals Present(A) No Crystals Present 01/15/2025 7:55 PM EDT [facility] Joint Fluid 01/15/2025 12:1 0 PM EDT 01/15/2025 2:41 PM EDT Narrative [facility] - 01/15/2025 7:55 PM EDT Under compensated polarized light microscopy rhomboidal positively birefringent crystals are seen consistent with Calcium Pyrophosphate. The presence of steroid crystals may result in a false positive. Correlate results with recent history up to 2 months of steroid injection. Sara Guy LAB BODY FLUIDS AND STOOLS ORDER MARYLIN Final Result [facility] [address] [place] [address] * (ABNORMAL) Body Fluid Cell Count w/ Diff (01/15/2025 12:10 PM EDT) Color, Body fluid Red LAB HEMATOLOGY METHOD 01/15/2025 7:53 PM EDT [facility] Appearance, Body fluid Cloudy(A) LAB HEMATOLOGY METHOD 01/15/2025 7:53 PM EDT [facility] Volume, Body fluid 4.0 cc LAB HEMATOLOGY METHOD 01/15/2025 7:53 PM EDT [facility] Fluid Container Specimen received in Sodium Heparin LAB HEMATOLOGY METHOD 01/15/2025 7:53 PM EDT [facility] Red Blood Cell Count, Body fluid 45,500 uL LAB HEMATOLOGY METHOD 01/15/2025 7:53 PM EDT [facility] Comment:Clumps present, coun t may be affected. Test performed by manual method. Total Nucleated Cell Count, Body fluid 75,000 uL LAB HEMATOLOGY METHOD 01/15/2025 7:53 PM EDT [facility] Comment:Clumps present, coun t may be affected. Test performed by manual method. Neutrophils %, Body fluid 93 % LAB HEMATOLOGY METHOD 01/15/2025 7:53 PM EDT [facility] Lymphocytes %, Body fluid 0 % LAB HEMATOLOGY METHOD 01/15/2025 7:53 PM EDT [facility] Monocytes/Macro phages %, Body fluid 7 % LAB HEMATOLOGY METHOD 01/15/2025 7:53 PM EDT [facility] Eosinophils %, Body fluid 0 % LAB HEMATOLOGY METHOD 01/15/2025 7:53 PM EDT [facility] Lining/Mesothel ial Cells %, Body fluid 0 % LAB HEMATOLOGY METHOD 01/15/2025 7:53 PM EDT [facility] Neutrophils Absolute (PMN), Body fluid 69,750 uL LAB HEMATOLOGY METHOD 01/15/2025 7:53 PM EDT [facility] Lymphocytes Absolute, Body fluid 0 uL LAB HEMATOLOGY METHOD 01/15/2025 7:53 PM EDT [facility] Monocytes/Macro phages Absolute, Body fluid 5,250 uL LAB HEMATOLOGY METHOD 01/15/2025 7:53 PM EDT [facility] Eosinophils Absolute, Body fluid 0 uL LAB HEMATOLOGY METHOD 01/15/2025 7:53 PM EDT [facility] Basophils Absolute, Body fluid 0 uL LAB HEMATOLOGY METHOD 01/15/2025 7:53 PM EDT [facility] Lining/Mesothel ial Cells Absolute, Body fluid 0 uL LAB HEMATOLOGY METHOD 01/15/2025 7:53 PM EDT [facility] Comment, Body fluid None LAB HEMATOLOGY METHOD 01/15/2025 7:53 PM EDT [facility] Comment:This is an appended report. These results have been appended to a previously preliminary verified report. Basophils %, Body fluid 0 % LAB HEMATOLOGY METHOD 01/15/2025 7:53 PM EDT [facility] Joint Fluid 01/15/2025 12:1 0 PM EDT 01/15/2025 2:41 PM EDT Sara Alegre LAB BODY FLUIDS AND STOOLS ORDERABLES NO SPECIMEN TYPE/SOURCE Final Result [facility] [address] [place] [address] documented in this encounter Visit Diagnoses Diagnosis [...] documented as of this encounter Care Teams Radiology Specialist Relationship Specialty Start Date End Date Kai Shea MD [address] [place] [address] PCP - General 03/13/21 Jessica Perales DO [address] [place] [address] Resident Neurology 06/16/21 documented as of this encounter
--- OUTSIDE RECORDS SUMMARY | 2025-06-05 09:04 | XMS_ITS | Encounter Summary ---
Author Organization Healthcare Address [address] [place] [address] Care Team Providers Care Filter Pulp Washer Name Role Phone Kai Shea MD Primary Care Provider [phone]- [phone] Jessica Perales DO Unavailable [phone] Encounter Details Date Type Department Care Team (Late st Contact Info) Description 09/17/2021 Lab Requisition [facility] [address] [place] [address] Mar Diaz MD [address] [facility] [address] [place] [phone] Decreased white blood cell count, unspecified Social [...] AM EST) Case Report Bone Marrow Case: [id number] Authorizing Provider: Mar Diaz MD Collected: 09/17/2021 0940 Ordering Location: [facility] Lab Received: 09/17/2021 0940 Pathologist: Jen Tesfaye MD Specimen: Bone Marrow Biopsy, [id number] 09/21/2021 1:36 PM EST [facility] Final Diagnosis PERIPHERAL BLOOD AND BONE MARROW, POSTERIOR ILIAC CREST (PERIPHERAL SMEAR, ASPIRATE SMEAR, AND CORE BIOPSY): - KAPPA RESECTED PLASMA CELL NEOPLASM, 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 Correlation with complete radiologic and laboratory studies is required for final diagnosis. 09/21/2021 1:36 PM EST [facility] Clinical Information D72.819 - Decreased white blood cell count, unspecified [ICD-10-CM] 09/21/2021 1:36 PM EST [facility] CBC and Differential PERIPHERAL BLOOD: No results found for requested labs within last 200 hours. DIFFERENTIAL:No results found for requested labs within last 200 hours. Leukopenia with mild lymphopenia and mild neutropenia.Macro cytic, normocytic red blood cells without anemia. Adequate platelets.no circulating plasma cells. 09/21/2021 1:36 PM EST [facility] Bone Marrow Differential BONE MARROW DIFFERENTIAL: 200 cells Normal Patient Neutrophils 15-50 12 Metamyelocytes 4-19 19 Myelocytes 1-18 23 Promyelocytes 1-8 0 Blasts 0-2 0 Monocytes 0-5 1 Erythroid 16-38 26 Lymphocytes 3-24 5 Eosinophils 0-6 7 Basophils 0-2 1 Plasma cells 0-4 6 Other 09/21/2021 1:36 PM EST [facility] Bone Marrow Aspirate and Biopsy The bone marrow aspirate smears show several cellular marrow particles with maturing trilineage hematopoiesis. Myeloid precursors are maturing . Blasts are not increased. 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 Plasma cells are increased and account for [...] Gain of 11q/CCND1 09/21/2021 1:36 PM EST [facility] Gross Description A. [id number] Received along with a corresponding pathology report from [facility] are 19 slide(s) labeled outside case: [id number] collected on 01/08/2021. 09/21/2021 1:36 PM EST [facility] Note: A resident was involved in the service. I attest I examined the relevant preparations for the specimens and confirmed the diagnosis or interpretation. 09/21/2021 1:36 PM EST [facility] Bone Marrow Specimen from bone marrow obtained by biopsy / Unknown 09/17/2021 9:40 AM EST 09/17/2021 9:40 AM EST us Mar Diaz MD LAB PATHOLOGY ORDERABLES Rosa godinez Result [facility] [address] [place] [address] documented in this encounter Visit Diagnoses Diagnosis Decreased white blood cell count, unspecified documented in this encounter Additional Health Concerns Assessment Noted Time A fall risk assessment has been complete d for the patient 2021 1:47 PM EDT documented as of this encounter Care Teams Filter Pulp Washer Relationship Specialty Start Date End Date Kai Shea MD [address] [place] [address] PCP - General 03/13/21 Jessica Perales DO [address] [place] [address] Resident Neurology 06/16/21 documented as of this encounter
[2025-06-05 09:38] LABS: Activated Partial Thrombo Time 31.9 seconds (22.8-30.6); INR 1.84 (0.9-1.1); Prothrombin Time 19.5 seconds (10.1-12.5)
[2025-06-05] MEDS: DENOSUMAB 120MG/1.7ML VIAL 120 MG SUBCUT (10:36)
[2025-06-05 10:42] LABS: Hematocrit 38.7 % (42.0-52.0); Hemoglobin 12.1 g/dL (14.1-18.0); Immature Granulocytes % 0.2 %; Mean Corpuscular HGB Conc 31.3 g/dL (31.8-35.4); Mean Corpuscular Hemoglobin 29.9 pg (27.0-31.2); Mean Corpuscular Volume 95.6 fl (80-94); Nucleated Red Blood Cells % 0 %; Platelet Count 151 K/mm3 (142-424); Red Blood Count 4.05 M/mm3 (4.60-6.20); Red Cell Distribution Width-SD 49.6 fL; White Blood Count 4.3 K/mm3 (4.8-10.8)
[2025-06-05 10:49] LABS: Alanine Aminotransferase 11 U/L (12-78); Albumin Level 4.2 g/dl (3.5-5.0); Albumin/Globulin Ratio 2.0 (1.1-1.8); Alkaline Phosphatase 90 U/L (38-126); Anion Gap 9.0 mEq/L (5-15); Aspartate Amino Transferase 24 U/L (17-59); Bilirubin,Total 0.5 mg/dl (0.2-1.3); Blood Urea Nitrogen 17 mg/dl (9-20); Calcium 9.3 mg/dl (8.4-10.2); Carbon Dioxide 28 mmol/L (22.0-30.0); Chloride 106 mmol/L (98-107); Creatinine,Serum 0.70 mg/dl (0.66-1.25); Estimated Glomerular Filt Rate 110 ml/min (>60); GFR (African American) 133 ML/MIN (>60); Globulin 2.1 g/dL (1.3-3.2); Glucose 129 mg/dl (74-100); Potassium 4.0 mmoL/L (3.5-5.1); Sodium 139 mmol/L (136-145); Total Protein,Serum 6.3 g/dl (6.3-8.2)
[2025-06-05 10:50] VITALS: BP 115/58; PULSE 61; RESP 18; TEMP 36.7; O2SAT 97
== END 2025-06-05 11:07 | disposition home or self-care (01) ==
LOC: INF 08:57
PROVIDERS: Physician Assistant; PCP Family Medicine; Visit Provider Internal Medicine Medical Oncology
DX: D47.2 Monoclonal gammopathy (principal); C90.00 Multiple myeloma not having achieved remission
CPT/HCPCS: 36415; 80053; 85025; 85610; 85730; 96372; J0897

== ENCOUNTER 2025-06-18 09:03 | Outpatient (CLI) | payer MEDICARE, BC, SELFPAY ==
--- NOTE | 2025-06-18 09:15 | PC.NURSE ---
labs drawn per amb orders from Dr Eason via butterfly in right ac. needle removed and coban applied. pt tolerated well and is going to oncology appt with niece at this time.
--- OUTSIDE RECORDS SUMMARY | 2025-06-18 09:17 | XMS_ITS | Clinical Summary ---
Author Organization [facility] Address [address] [place] [address] Care Team Providers Care Helper Electrical Name Role Phone Kai Shea MD Primary Care Provider [phone] Jessica Perales DO Unavailable [phone] Allergies No known active allergies Medications atorvastatin [...] Description [facility] [place] [address] Monica Sue MD from Last 3 Months Immunizations Immunization Administration Dates Next Due [employer] COVID-19 Vaccine (Purple Cap) 12 + 01/16/2021,12/24/2020 [...] drink first t vane in the morning (EYE-ADJUNCT PROFESSOR OF LAW) to steady your nerves or to get [...] Wellness (AWV) 1950 [facility]-Infant/Child/Adol SDOH Screenings 1950 [facility]- SDOH Screenings 1968 [facility]-Adult SDOH Screenings 1968 [facility]-Zoster Vaccines (1 of 2) 1969 CT Colonography 1995 Colonoscopy 1995 FIT-DNA 1995 FIT 1995 FOBT 1995 Sigmoidoscopy 1995 [facility]-Colorectal Cancer Screening 1995 [facility]-Pneumococcal Vaccine: 50+ Years (2 of 2 - PPSV23) 03/16/2019 01/19/2019 [id number] Vaccine (4 - season) 2024 10/08/2021, 01/16/2021, 12/24/2020 [facility]-RSV Vaccine: 60+ Years or (1 - 1-dose 75+ series) 2025 [facility]-Influenza Vaccine (#1) 2025 [facility]-Depression Screening 12/03/2025 [...] Dominguez MD LAB BLOOD ORDERABLES Final Result [facility] [address] [place] [address] from Last 3 Months or Most Recently Relevant to Health Maintenance Insurance [facility] [place] [address] Advance Directives Documents on File Type Date Recorded 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 Yes Care Teams Helper Electrical Relationship Specialty Start Date End Date Kai Shea MD [address] [place] [address] PCP - General 03/13/21 Jessica Perales DO [address] [facility] [address] [place] [address] Resident Neurology 06/16/21
--- OUTSIDE RECORDS SUMMARY | 2025-06-18 09:17 | XMS_ITS | Encounter Summary ---
Author Organization [facility] [place] [address] Care Team Providers Care Permit Coordinator Name Role Phone Unavailable Primary Care Provider Unavailabl e Encounter Details Date Type Department Care Team (Late st Contact Info) Description 01/07/2023 Orders Only [facility] [place] [id number] Barbara Bess MD [address] [place] [phone] Social History Tobacco Use Types Packs/Day Years [...] AM EST) 01/07/2023 9:45 AM EST Narrative [facility] - 01/24/2023 5:22 PM EDT Requesting Provider: GIOVANNA Chaney Specimen = [id number] us Barbara Bess MD PATHOLOGY ORDERABLES Final Resul t [facility] [address] [place] [address] documented in this encounter Visit Diagnoses Not on filedocumented in this encounter
--- OUTSIDE RECORDS SUMMARY | 2025-06-18 09:17 | XMS_ITS | Encounter Summary ---
Author Organization Healthcare Address [address] [place] [address] Care Team Providers Care Patient Manager Name Role Phone Kai Shea MD Primary Care Provider [phone]- [phone] Jessica Perales DO Unavailable [phone] Encounter Details Date Type Department Care Team (Late st Contact Info) Description 09/17/2021 Lab Requisition [facility] [address] [place] [address] Mar Diaz MD 800 [facility] [address] [place] [phone] Decreased white blood cell count, unspecified Social [...] AM EST) Case Report Bone Marrow Case: [id number] Authorizing Provider: Mar Diaz MD Collected: 09/17/2021 0940 Ordering Location: [facility] Lab Received: 09/17/2021 0940 Pathologist: Jen Tesfaye MD Specimen: Bone Marrow Biopsy, [id number] 09/21/2021 1:36 PM EST [facility] Final Diagnosis PERIPHERAL BLOOD AND BONE MARROW, POSTERIOR ILIAC CREST (PERIPHERAL SMEAR, ASPIRATE SMEAR, AND CORE BIOPSY): - KAPPA RESECTED PLASMA CELL NEOPLASM, 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 Correlation with complete radiologic and laboratory studies is required for final diagnosis. 09/21/2021 1:36 PM EST [facility] Clinical Information D72.819 - Decreased white blood cell count, unspecified [ICD-10-CM] 09/21/2021 1:36 PM EST [facility] CBC and Differential PERIPHERAL BLOOD: No results found for requested labs within last 200 hours. DIFFERENTIAL:No results found for requested labs within last 200 hours. Leukopenia with mild lymphopenia and mild neutropenia.Macro cytic, normocytic red blood cells without anemia. Adequate platelets.no circulating plasma cells. 09/21/2021 1:36 PM EST [facility] Bone Marrow Differential BONE MARROW DIFFERENTIAL: 200 cells Normal Patient Neutrophils 15-50 12 Metamyelocytes 4-19 19 Myelocytes 1-18 23 Promyelocytes 1-8 0 Blasts 0-2 0 Monocytes 0-5 1 Erythroid 16-38 26 Lymphocytes 3-24 5 Eosinophils 0-6 7 Basophils 0-2 1 Plasma cells 0-4 6 Other 09/21/2021 1:36 PM EST [facility] Bone Marrow Aspirate and Biopsy The bone marrow aspirate smears show several cellular marrow particles with maturing trilineage hematopoiesis. Myeloid precursors are maturing . Blasts are not increased. Erythropoiesis is director web. Plasma cells are increased and account for [...] Gain of 11q/CCND1 09/21/2021 1:36 PM EST [facility] Gross Description A. [id number] Received along with a corresponding pathology report from [facility] are 19 slide(s) labeled outside case: [id number] collected on 01/08/2021. 09/21/2021 1:36 PM EST [facility] Note: A resident was involved in the service. I attest I examined the relevant preparations for the specimens and confirmed the diagnosis or interpretation. 09/21/2021 1:36 PM EST [facility] Bone Marrow Specimen from bone marrow obtained by biopsy / Unknown 09/17/2021 9:40 AM EST 09/17/2021 9:40 AM EST us Mar Diaz MD LAB PATHOLOGY ORDERABLES Rosa godinez Result [facility] [address] [place] [address] documented in this encounter Visit Diagnoses Diagnosis Decreased white blood cell count, unspecified documented in this encounter Additional Health Concerns Assessment Noted Time A fall risk assessment has been complete d for the patient 2021 1:47 PM EDT documented as of this encounter Care Teams Patient Manager Relationship Specialty Start Date End Date Kai Shea MD [address] [place] [address] PCP - General 03/13/21 Jessica Perales DO [address] [place] [address] Resident Neurology 06/16/21 documented as of this encounter
--- OUTSIDE RECORDS SUMMARY | 2025-06-18 09:17 | XMS_ITS | Encounter Summary ---
Author Organization [place] [address] Care Team Providers Care Building Performance Specialist Name Role Phone Unavailable Primary Care Provider Unavailabl e Encounter Details Date Type Department Care Team (Late st Contact Info) Description 01/07/2023 [facility] Only [facility] [place] [phone] Barbara Bess MD [address] [place] [phone] Social History Tobacco Use Types Packs/Day Years [...] AM EST) 01/07/2023 9:45 AM EST Narrative [facility] - 01/17/2023 1:28 PM EDT Requesting Provider: GIOVANNA Chaney Specimen = [id number] us Barbara Bess MD PATHOLOGY ORDERABLES Final Resul t [facility] [address] [place] [address] documented in this encounter Visit Diagnoses Not on filedocumented in this encounter
--- OUTSIDE RECORDS SUMMARY | 2025-06-18 09:17 | XMS_ITS | Clinical Summary ---
Author Organization [facility] Address [address] [facility] [address] [place] [address] Phone Care Team Providers Care Auto Body Repair Teacher Name Role Phone Unavailable Primary Care Provider [...] Colonography 1995 Zoster (1 of 2) 2000 Pneumococcal Vaccine 50+ (2 of 2 - PCV20 or PCV21) 01/20/2020 01/19/2019 COVID-19 Vaccine (4 - 2023-2 5 season) 2024 10/08/2021, 01/16/2021, 12/24/2020 RSV or 60+ (1 - 1-dose 75+ series) 2025 Influenza Vaccine (#1) 2025 DTaP/TDaP/Td (2 - Td or Tdap) 01/19/2029 01/19/2019 Hepatitis B Vaccine Aged Out No longe r eligible based on patient's age to complete this topic Meningococcal B Vaccine Aged Out No l onger eligible based on patient's age to complete this topic Insurance FEDERAL [facility] FEDERAL /[place] [address] MEDICARE [place] PART A AND B ANTH FEDERAL
--- OUTSIDE RECORDS SUMMARY | 2025-06-18 09:17 | XMS_ITS | Encounter Summary ---
Author Organization Healthcare Address [address] [place] [address] Care Team Providers Care Harbor Boat Pilot Name Role Phone Kai Shea MD Primary Care Provider [phone]- [phone] Jessica Perales DO Unavailable [phone] Encounter Details Date Type Department Care Team (Late st Contact Info) Description [facility] [place] [facility] [address] [place] [address] Monica Sue MD [address] [place] [address] Social History Tobacco Use Types [...] drink first t vane in the morning (EYE-TRIP RIDER) to steady your nerves or to get [...] documented as of this encounter Care Teams Harbor Boat Pilot Relationship Specialty Start Date End Date Kai Shea MD [address] [place] [address] PCP - General 03/13/21 Jessica Perales DO [address] [place] [address] Resident Neurology 06/16/21 documented as of this encounter
--- OUTSIDE RECORDS SUMMARY | 2025-06-18 09:17 | XMS_ITS | Encounter Summary ---
Author Organization [place] [address] Care Team Providers Care Manager Gyn Name Role Phone Unavailable Primary Care Provider Unavailabl e Encounter Details Date Type Department Care Team (Late st Contact Info) Description 01/07/2023 Orders Only [facility] [place] [phone] Barbara Bess MD [address] [place] [phone] Social History Tobacco Use Types Packs/Day Years [...] Procedure Name Priority Date/Time Associated Diagnosis Comments eDossea STANDARD LEUKEMIA/LYMPHOMA PANEL Routine 01/07/2023 9:45 AM EST documented in this encounter Results * NEOGENOMICS STANDARD LEUKEMIA/LYMPHOMA PANEL (01/07/2023 9:45 AM EST) 01/07/2023 9:45 AM EST Narrative [facility] - 01/10/2023 3:22 PM EDT Requesting Provider: GIOVANNA Chaney Specimen = [id number] us Barbara Bess MD PATHOLOGY ORDERABLES Final Resul t Performing Organization Address City/State/[place] Co de Phone Number [facility] [address] [place] [address] documented in this encounter Visit Diagnoses Not on filedocumented in this encounter
--- OUTSIDE RECORDS SUMMARY | 2025-06-18 09:17 | XMS_ITS | Clinical Summary ---
Author Organization [facility] Address [address] [place] [address] Care Team Providers Care Automobile Service Writer Name Role Phone Kai Shea MD Primary [...] (4 - season) 2024 10/08/2021, 01/16/2021, 12/24/2020 RSV Vaccine - Adults (1 - 1- dose 75+ series) 2025 INFLUENZA VACCINE 07/31/2025 TDAP/TD VACCINES (3 - Td or Tdap) 03/17/2033 023, 01/19/2019 Insurance MEDICARE A & B [employer] Care Teams Automobile Service Writer Relationship Specialty Start Date End Date Kai Shea MD [address] [facility] [place] [address] [place] [address] PCP - General Family Medicine 04/05/23
--- OUTSIDE RECORDS SUMMARY | 2025-06-18 09:17 | XMS_ITS | Encounter Summary ---
Author Organization Healthcare Address [address] [place] [address] Care Team Providers Care Hand Iii Cutter Name Role Phone Kai Shea MD Primary Care Provider [phone]- [phone] Jessica Perales DO Unavailable [phone] Encounter Details Date Type Department Care Team (Late st Contact Info) Description 11/05/2024 Orders Only [place] [facility] [address] [place] [address] Rome York, DO [address] [place] [phone] Neuropathy Social History Tobacco Use Types Packs/Day [...] in a mcc (including now)? No 05/04/2024 CAGE ASSESSMENT Answer [...] t vane in the morning (EYE-INTERACTIVE MEDIA PROJECT MANAGER) to steady your nerves or to [...] documented as of this encounter Care Teams Hand Iii Cutter Relationship Specialty Start Date End Date Kai Shea MD [address] [place] [address] PCP - General 03/13/21 Jessica Perales DO [address] [place] [address] Resident Neurology 06/16/21 documented as of this encounter
--- OUTSIDE RECORDS SUMMARY | 2025-06-18 09:17 | XMS_ITS | Encounter Summary ---
Author Organization Healthcare Address [address] [place] [address] Care Team Providers Care Fingerprinter Name Role Phone Kai Shea MD Primary Care Provider +1- [phone] Jessica Perales DO Unavailable [phone] Encounter Details Date Type Department Care Team (Late st Contact Info) Description 12/31/2024 Lab Requisition [facility] [address] [place] [address] Valdo Carrillo, CARLOS [address] [place] [address] Encounter for general adult medical examination without [...] drink first t vane in the morning (EYE-PLEAT PATTERNMAKER) to steady your nerves or to get [...] has been identified using the FDA Approved [employer] [place] System The organism value for this [...] BASSAM 2 ug/ml: Susceptible Staphylococcus epidermidis Vancomycin BASASM 1 ug/ml: Susceptible us Valdo GONZALEZ LAB MICROBIOLOGY - GENERAL ORDERABLES Final Result [facility] [address] [place] [address] documented in this encounter Visit Diagnoses Diagnosis [...] documented as of this encounter Care Teams Fingerprinter Relationship Specialty Start Date End Date Kai Shea MD [address] [place] [address] PCP - General 03/13/21 Jessica Perales DO [address] [facility] [address] [place] [address] Resident Neurology 06/16/21 documented as of this encounter
--- OUTSIDE RECORDS SUMMARY | 2025-06-18 09:17 | XMS_ITS | Encounter Summary ---
Author Organization Healthcare Address [address] [place] [address] Care Team Providers Care Lead Front Desk Agent Name Role Phone Kai Shea MD Primary Care Provider [phone]- [phone] Jessica Perales DO Unavailable [phone] Encounter Details Date Type Department Care Team (Late st Contact Info) Description 12/31/2024 Lab Requisition [facility] [address] [place] [address] Valdo Carrillo, CARLOS [address] [place] [address] Encounter for general adult medical examination without [...] drink first t vane in the morning (EYE-BEEHIVE KILN CHARCOAL BURNER) to steady your nerves or to get [...] LAB HEMATOLOGY METHOD 01/01/2025 2:08 PM EST [facility] Specimen Source, Body Fluid LAB HEMATOLOGY METHOD 01/01/2025 2:08 PM EST [facility] Clinical Diagnosis, Body Fluid Joint fluid. Neuropathy. History of plasma cell neoplasm and Parkinson's LAB HEMATOLOGY METHOD 01/01/2025 2:08 PM EST [facility] Interpretation , Body Fluid No evidence of malignancy; acute inflammatory cells. See comment A resident was involved in the service. I attest I examined the relevant preparations for the specimens and confirmed the diagnosis or interpretation. 01/01/2025 2:08 PM EST [facility] Pathologist Signature, Body Fluid 01/01/2025 2:08 PM EST [facility] Comment:Reviewed by: Prashanth Montiel MD LAB CP ASR DISCLAIMER Yes 01/01/2025 2:08 PM EST [facility] Joint Fluid 12/31/2024 3:15 PM EST 12/31/2024 6:01 PM EST Narrative [facility] - 01/01/2025 2:08 PM EST Correlation with microbiology studies is suggested. us Valdo GONZALEZ LAB BODY FLUIDS AND STOOLS ORDERABLES Final Result [facility] [address] [place] [address] * (ABNORMAL) Body Fluid Cell Count w/ Diff (12/31/2024 3:15 PM EST) Color, Body fluid Yellow LAB HEMATOLOGY METHOD 12/31/2024 8:00 PM [facility] Appearance, Body fluid Cloudy(A) LAB HEMATOLOGY METHOD 12/31/2024 8:00 PM [facility] Volume, Body fluid 2.5 cc LAB HEMATOLOGY METHOD 12/31/2024 8:00 PM [facility] Fluid Container Specimen received in EDTA tube LAB HEMATOLOGY METHOD 12/31/2024 8:00 PM [facility] Red Blood Cell Count, Body fluid 5,000 uL LAB HEMATOLOGY METHOD 12/31/2024 8:00 PM [facility] Total Nucleated Cell Count, Body fluid 44,000 uL LAB HEMATOLOGY METHOD 12/31/2024 8:00 PM [facility] Neutrophils %, Body fluid 95 % LAB HEMATOLOGY METHOD 12/31/2024 8:00 PM [facility] Lymphocytes %, Body fluid 1 % LAB HEMATOLOGY METHOD 12/31/2024 8:00 PM [facility] Monocytes/Macro phages %, Body fluid 4 % LAB HEMATOLOGY METHOD 12/31/2024 8:00 PM [facility] Eosinophils %, Body fluid 0 % LAB HEMATOLOGY METHOD 12/31/2024 8:00 PM [facility] Lining/Mesothel ial Cells %, Body fluid 0 % LAB HEMATOLOGY METHOD 12/31/2024 8:00 PM [facility] Neutrophils Absolute (PMN), Body fluid 41,800 uL LAB HEMATOLOGY METHOD 12/31/2024 8:00 PM [facility] Lymphocytes Absolute, Body fluid 440 uL LAB HEMATOLOGY METHOD 12/31/2024 8:00 PM [facility] Monocytes/Macro phages Absolute, Body fluid 1,760 uL LAB HEMATOLOGY METHOD 12/31/2024 8:00 PM [facility] Eosinophils Absolute, Body fluid 0 uL LAB HEMATOLOGY METHOD 12/31/2024 8:00 PM [facility] Basophils Absolute, Body fluid 0 uL LAB HEMATOLOGY METHOD 12/31/2024 8:00 PM [facility] Lining/Mesothel ial Cells Absolute, Body fluid 0 uL LAB HEMATOLOGY METHOD 12/31/2024 8:00 PM EST [facility] Comment, Body fluid None LAB HEMATOLOGY METHOD 12/31/2024 8:00 PM EST [facility] Comment:This is an appended report. These results have been appended to a previously preliminary verified report. Basophils %, Body fluid 0 % LAB HEMATOLOGY METHOD 12/31/2024 8:00 PM EST [facility] Joint Fluid 12/31/2024 3:15 PM EST 12/31/2024 6:01 PM EST Valdo GONZALEZ LAB BODY FLUIDS AN D STOOLS ORDERABLES NO SPECIMEN TYPE/SOURCE Final Result Performing Organization Address [facility] Co de Phone Number [facility] [address] [place] [address] * (ABNORMAL) Synovial fluid, crystal (12/31/2024 3:15 PM EST) Crystals, Joint Fluid Calcium Pyrophosphate Crystals Present(A) No Crystals Present 12/31/2024 11:06 PM EST [facility] Joint Fluid 12/31/2024 3:15 PM EST 12/31/2024 6:01 PM EST Narrative [facility] - 12/31/2024 11:06 PM EST Under compensated polarized light microscopy rhomboidal positively birefringent crystals are seen consistent with Calcium Pyrophosphate. The presence of steroid crystals may result in a false positive. Correlate results with recent history up to 2 months of steroid injection. Valdo GONZALEZ LAB BODY FLUIDS AND STOOLS ORDERABLES Final Result Performing Organization Address [facility] Co de Phone Number [facility] [address] [place] [address] documented in this encounter Visit Diagnoses Diagnosis [...] documented as of this encounter Care Teams Lead Front Desk Agent Relationship Specialty Start Date End Date Kai Shea MD [address] [place] [address] PCP - General 03/13/21 Jessica Perales DO [address] [facility] [address] [place] [address] Resident Neurology 06/16/21 documented as of this encounter
--- OUTSIDE RECORDS SUMMARY | 2025-06-18 09:17 | XMS_ITS | Encounter Summary ---
Author Organization [place] [address] Care Team Providers Care Napkin Machine Operator Name Role Phone Unavailable Primary Care Provider Unavailabl e Encounter Details Date Type Department Care Team (Late st Contact Info) Description 01/07/2023 Orders Only [facility] [place] [phone] Barbara Bess MD [address] [place] [phone] Social History Tobacco Use Types Packs/Day Years [...] AM EST) 01/07/2023 9:45 AM EST Narrative [facility] - 01/16/2023 11:22 AM EDT Requesting Provider: GIOVANNA Chaney Specimen = [id number] us Barbara Bess MD PATHOLOGY ORDERABLES Final Resul t Performing Organization Address City/State/[facility] Co de Phone Number [facility] [address] [place] [address] documented in this encounter Visit Diagnoses Not on filedocumented in this encounter
--- OUTSIDE RECORDS SUMMARY | 2025-06-18 09:17 | XMS_ITS | Encounter Summary ---
Author Organization Healthcare Address [address] [place] [address] Care Team Providers Care Market Relationship Manager Name Role Phone Kai Shea MD Primary Care Provider [phone]- [phone] Jessica Perales DO Unavailable [phone] Encounter Details Date Type Department Care Team (Late st Contact Info) Description 01/15/2025 Lab Requisition [facility] [address] [place] [address] Sara Alegre [address] [place] [address] Encounter for general adult medical examination without [...] place to sleep or slept in a [place] facility (including now)? No 05/04/2024 PHQ-9 Answer Date [...] drink first t vane in the morning (EYE-COMMERCIAL STRIPPER) to steady your nerves or to get [...] LAB HEMATOLOGY METHOD 01/16/2025 4:15 PM EDT [facility] Specimen Source, Body Fluid LAB HEMATOLOGY METHOD 01/16/2025 4:15 PM EDT [facility] Clinical Diagnosis, Body Fluid Joint effusion LAB HEMATOLOGY METHOD 01/16/2025 4:15 PM EDT [facility] Interpretation , Body Fluid Acute inflammatory cells; correlate with Gram stain/culture and/or crystal analysis. A resident was involved in the service. I attest I examined the relevant preparations for the specimens and confirmed the diagnosis or interpretation. 01/16/2025 4:15 PM EDT [facility] Pathologist Signature, Body Fluid 01/16/2025 4:15 PM EDT [facility] Comment:Reviewed by: Isabel Donohue MD LAB CP ASR DISCLAIMER Yes 01/16/2025 4:15 PM EDT [facility] Joint Fluid 01/15/2025 12:1 0 PM EDT 01/15/2025 2:41 PM EDT us Sara Codey LAB BODY FLUIDS AND STOOLS ORDER MARYLIN Final Result [facility] [address] [place] [address] * (ABNORMAL) Joint Fluid Crystals (01/15/2025 12:10 PM EDT) Crystals, Joint Fluid Calcium Pyrophosphate Crystals Present(A) No Crystals Present 01/15/2025 7:55 PM EDT [facility] Joint Fluid 01/15/2025 12:1 0 PM EDT 01/15/2025 2:41 PM EDT Narrative [facility] - 01/15/2025 7:55 PM EDT Under compensated polarized light microscopy rhomboidal positively birefringent crystals are seen consistent with Calcium Pyrophosphate. The presence of steroid crystals may result in a false positive. Correlate results with recent history up to 2 months of steroid injection. Sara Guy LAB BODY FLUIDS AND STOOLS ORDER MARYLIN Final Result [facility] [address] [place] [address] * (ABNORMAL) Body Fluid Cell Count w/ Diff (01/15/2025 12:10 PM EDT) Color, Body fluid Red LAB HEMATOLOGY METHOD 01/15/2025 7:53 PM EDT [facility] Appearance, Body fluid Cloudy(A) LAB HEMATOLOGY METHOD 01/15/2025 7:53 PM EDT [facility] Volume, Body fluid 4.0 cc LAB HEMATOLOGY METHOD 01/15/2025 7:53 PM EDT [facility] Fluid Container Specimen received in Sodium Heparin LAB HEMATOLOGY METHOD 01/15/2025 7:53 PM EDT [facility] Red Blood Cell Count, Body fluid 45,500 uL LAB HEMATOLOGY METHOD 01/15/2025 7:53 PM EDT [facility] Comment:Clumps present, coun t may be affected. Test performed by manual method. Total Nucleated Cell Count, Body fluid 75,000 uL LAB HEMATOLOGY METHOD 01/15/2025 7:53 PM EDT [facility] Comment:Clumps present, coun t may be affected. Test performed by manual method. Neutrophils %, Body fluid 93 % LAB HEMATOLOGY METHOD 01/15/2025 7:53 PM EDT [facility] Lymphocytes %, Body fluid 0 % LAB HEMATOLOGY METHOD 01/15/2025 7:53 PM EDT [facility] Monocytes/Macro phages %, Body fluid 7 % LAB HEMATOLOGY METHOD 01/15/2025 7:53 PM EDT [facility] Eosinophils %, Body fluid 0 % LAB HEMATOLOGY METHOD 01/15/2025 7:53 PM EDT [facility] Lining/Mesothel ial Cells %, Body fluid 0 % LAB HEMATOLOGY METHOD 01/15/2025 7:53 PM EDT [facility] Neutrophils Absolute (PMN), Body fluid 69,750 uL LAB HEMATOLOGY METHOD 01/15/2025 7:53 PM EDT [facility] Lymphocytes Absolute, Body fluid 0 uL LAB HEMATOLOGY METHOD 01/15/2025 7:53 PM EDT [facility] Monocytes/Macro phages Absolute, Body fluid 5,250 uL LAB HEMATOLOGY METHOD 01/15/2025 7:53 PM EDT [facility] Eosinophils Absolute, Body fluid 0 uL LAB HEMATOLOGY METHOD 01/15/2025 7:53 PM EDT [facility] Basophils Absolute, Body fluid 0 uL LAB HEMATOLOGY METHOD 01/15/2025 7:53 PM EDT [facility] Lining/Mesothel ial Cells Absolute, Body fluid 0 uL LAB HEMATOLOGY METHOD 01/15/2025 7:53 PM EDT [facility] Comment, Body fluid None LAB HEMATOLOGY METHOD 01/15/2025 7:53 PM EDT [facility] Comment:This is an appended report. These results have been appended to a previously preliminary verified report. Basophils %, Body fluid 0 % LAB HEMATOLOGY METHOD 01/15/2025 7:53 PM EDT [facility] Joint Fluid 01/15/2025 12:1 0 PM EDT 01/15/2025 2:41 PM EDT Sara Alegre LAB BODY FLUIDS AND STOOLS ORDERABLES NO SPECIMEN TYPE/SOURCE Final Result [facility] [address] [place] [address] documented in this encounter Visit Diagnoses Diagnosis [...] documented as of this encounter Care Teams Market Relationship Manager Relationship Specialty Start Date End Date Kai Shea MD [address] [place] [address] PCP - General 03/13/21 Jessica Perales DO [address] [place] [address] Resident Neurology 06/16/21 documented as of this encounter
[2025-06-18 09:22] LABS: Hematocrit 39.7 % (42.0-52.0); Hemoglobin 12.5 g/dL (14.1-18.0); Immature Granulocytes % 0.2 %; Mean Corpuscular HGB Conc 31.5 g/dL (31.8-35.4); Mean Corpuscular Hemoglobin 29.6 pg (27.0-31.2); Mean Corpuscular Volume 93.9 fl (80-94); Nucleated Red Blood Cells % 0 %; Platelet Count 148 K/mm3 (142-424); Red Blood Count 4.23 M/mm3 (4.60-6.20); Red Cell Distribution Width-SD 50.1 fL; White Blood Count 4.3 K/mm3 (4.8-10.8)
[2025-06-18 09:35] LABS: Activated Partial Thrombo Time 41.6 seconds (22.8-30.6); INR 1.54 (0.9-1.1); Prothrombin Time 16.6 seconds (10.1-12.5)
[2025-06-18 09:46] LABS: Chloride 106 mmol/L (98-107)
[2025-06-18 09:47] LABS: Albumin Level 4.7 g/dl (3.5-5.0); Potassium 4.3 mmoL/L (3.5-5.1); Sodium 142 mmol/L (136-145)
[2025-06-18 09:49] LABS: Blood Urea Nitrogen 24 mg/dl (9-20); Creatinine,Serum 1.00 mg/dl (0.66-1.25); Estimated Glomerular Filt Rate 73 ml/min (>60); GFR (African American) 88 ML/MIN (>60)
[2025-06-18 09:50] LABS: Alanine Aminotransferase 23 U/L (12-78); Albumin/Globulin Ratio 2.0 (1.1-1.8); Alkaline Phosphatase 76 U/L (38-126); Anion Gap 14.3 mEq/L (5-15); Aspartate Amino Transferase 27 U/L (17-59); Bilirubin,Total 0.8 mg/dl (0.2-1.3); Calcium 9.2 mg/dl (8.4-10.2); Carbon Dioxide 26 mmol/L (22.0-30.0); Globulin 2.3 g/dL (1.3-3.2); Glucose 134 mg/dl (74-100); Total Protein,Serum 7.0 g/dl (6.3-8.2)
[2025-06-18 10:26] LABS: RBC Morphology Normal; Total Cells Counted 100
[2025-06-19 16:27] LABS: Albumin 3.8 g/dL (2.9-4.4); Alpha-1-Globulin 0.2 g/dL (0.0-0.4); Alpha-2-Globulin 0.7 g/dL (0.4-1.0); Gamma Globulin 0.9 g/dL (0.4-1.8)
[2025-06-20 11:28] LABS: Immunoglobulin A, Qn 98 mg/dL (61-437); Immunoglobulin G, Qn 850 mg/dL (603-1613); Immunoglobulin M, Qn 55 mg/dL (15-143)
== END 2025-06-18 09:15 | disposition home or self-care (01) ==
LOC: INF 09:05
PROVIDERS: PCP Family Medicine; Visit Provider Internal Medicine Medical Oncology
DX: D47.2 Monoclonal gammopathy (principal); C90.00 Multiple myeloma not having achieved remission
CPT/HCPCS: 36415; 80053; 82784; 83521; 84155; 84165; 85007; 85025; 85610; 85730; 86334

== ENCOUNTER 2025-07-30 08:54 | Outpatient (CLI) | payer MEDICARE, BC, SELFPAY ==
--- OUTSIDE RECORDS SUMMARY | 2025-04-25 07:30 | XMS_ITS ---
Author Organization [facility] Address [address] [id number] Care Team Providers Care Brass Polisher Name Role Phone Nas Shea Primary Care [...] Risk Notes Problem Cardiac pacemaker in situ ([id number]) Pacemaker (Z95.0) Active confirmed Vital Signs Weight 187 lbs 04/25/2025 Blood pressure systolic 112 mm Hg 04/25/20 25 Blood pressure diastolic 64 mm Hg 025 Heart Rate 78 /min 04/25/2025 Height 72 in 04/25/2025 BMI 25.36 kg/m2 04/25/2025 Encounters Encounter Location Date Provider Diagnosis [facility] [address] [place], [place] [id number] 04/25/2025 R Jesus Monse Pacemaker Z95.0 ; [...] 11/05/2025 09:15:00 AM, [address] [facility], [address] , [place], [place], [id number], Progress Notes * JAGRUTI SWANENCEDOB: 0 (75 yo M)Acc No.[id number]:04/25/2025 Progress Notes Patient: KEV LUZ Provider: Nas Shea M.D. :1950 A ge:74 Y S ex:Male Date:04/25/2025 Address:[address] [place] [address] YAMILEX , [facility]-[id number] Subjective: * Chief Complaints: * 1 . Skin Tear on Left Arm Possibly Infected. * HPI: C ardiology: He had a permanent pacemaker placed yesterday by Dr. Yates. Xarelto is currently on hold. His Lasix dose was increased. He tells me the marker shipments would like for him to wean off [...] hand 09/25/2009, C-scope - Dr. Kimball 09/2013, [facility] ER-Afib 01/2016, [facility]-Gallstone pancreatitis 09/02/2016, Left heart cath/[place]/ normal flow of revascularized vessels 02/2017, [facility]-tachycardia 07/02-12/2019, [facility] UTC - Fall 11/14/2023. * [...] * Images: Billing Information: * Visit Code: 43202 Office Visit, Est Pt., Level 4. * Procedure Codes: G2211 Complex e/m visit add on. 1036F TOBACCO NON-USER. G8420 BMI<30 AND >=22 CALC & DOCU. G8783 BP SCR PRFRM RCMDD DEFIND SCR INTVL. G8752 MOST RECENT SYSTOLIC BP < 140MM HG. G8754 MOST RECENT DIASTOLIC BP < 90MM HG. * Electronic signature of Nas Shea MD on 07/30/2025 at 08:57 AM EDT Sign off status: Pending * Provider: Nas Shea M.D. Date: 0 04/25/2025 Generated for Galilea lozano/Ken/Stevenitting on: 0 07/30/2025 08:57 AM EDT History and Physical Notes * [...] sterile dressing. Cardiology He tells me the marker shipments would like for him to wean off [...]
--- OUTSIDE RECORDS SUMMARY | 2025-06-05 05:30 | XMS_ITS ---
Author Organization [facility] Address [address] [place] [id number] Care Team Providers Care Boiler Cleaner Name Role Phone Nas Shea Primary Care Provider [phone] AntolinEdmond zamana Unavailable [phone] Allergies No Known Allergies Results Component Value [...] a day (at bedtime) Active Vital Signs Weight 197.8 lbs 06/05/2025 Blood pressure systolic 116 mm Hg 06/05/20 25 Blood pressure diastolic 70 mm Hg 025 Heart Rate 70 /min 06/05/2025 Height 72 in 06/05/2025 BMI 26.82 kg/m2 06/05/2025 Encounters Encounter Location Date Provider Diagnosis [facility] [address] [facility] [address] [facility] [address] [place], [place] [id number] 06/05/2025 Farida Dangelojunie Multiple myeloma C90 .00 [...] Provider Name:Nas Solis, 11/05/2025 09:15:00 AM, [address] [facility] [address] [facility], [address], [place], [place], [id number], Progress Notes * ANGIE DICKOB: 0 (75 yo M)Acc No.[id number]:06/05/2025 Progress Notes Patient: Henry KEV CHEUNG Provider: CARLOS Castaneda :1950 A ge:74 Y S ex:Male Date:06/05/2025 Address:[address] [place] [address] [place] , [place], [id number] Pcp:Nas Shea Subjective: * Chief Complaints: * [...] stents 03/08/2007, Open Heart Surgery-Dr Mott @ [facility] 12/2015, thoracentesis 12/2015, Laparoscopic cholecystectomy - Dr. Wallace 09/06/2016, cardiac defibirilltor placed-Dr Yates 07/04/2020, cataract surgery-right eye 12/2020, Knee Surgery - Due to Infection -01/2025, Cardiac Pacemaker 04/24/2025. * Hospitalization/Major Diagno stic Procedure: H ER-suture to pinky finger of left hand 09/25/2009, C-scope - Dr. Kimball 09/2013, [facility] ER-Afib 01/2016, [facility]-Gallstone pancreatitis 09/02/2016, Left heart cath/[place]/ normal flow of revascularized vessels 02/2017, [facility]-tachycardia 07/02-12/2019, [facility] UTC - Fall 11/14/2023. * [...] ultiple myeloma - C90.00 3 . B [place] 26.0-26.9,adult - Z68.26 Plan: * Treatment: Value [...] * Images: Billing Information: * Visit Code: 49567 Office Visit, Est Pt., Level 3. * Procedure Codes: G2211 Complex e/m visit add on. 1036F TOBACCO NON-USER. G8420 BMI<30 AND >=22 CALC & DOCU. G8783 BP SCR PRFRM RCMDD DEFIND SCR INTVL. G8752 MOST RECENT SYSTOLIC BP < 140MM HG. G8754 MOST RECENT DIASTOLIC BP < 90MM HG. * Electronic signature of CARLOS Chase on 07/30/2025 at 08:57 AM EDT Sign off status: Pending * Provider: CARLOS Castaneda Date: 0 06/05/2025 Generated for Galilea lozano/Ken/Stevenitting on: 0 07/30/2025 [...]
--- OUTSIDE RECORDS SUMMARY | 2025-06-07 05:00 | XMS_ITS ---
Author Organization [facility] Address [address] [id number] Care Team Providers Care Director Pharmaceutical Name Role Phone Nas Shea Primary Care Provider Farida Ponce Unavailable [phone] Allergies No Known Allergies REASON FOR VISIT [...] 06/07/2025 Encounters Encounter Location Date Provider Diagnosis MARGARITO-Kandis 1210 [facility] 36 [facility] [address] [place] [id number] 06/07/2025 Farida Crowjunie Orbital cellulitis, right H05.011 [...] Provider Name:Nas Solis, 11/05/2025 09:15:00 AM, 1210 [facility] 36 [facility], [address], [place], [phone], Progress Notes * ANGIE DICKOB: 0 (75 yo M)Acc No.[id number]:06/07/2025 Progress Notes Patient: Madisyn KEV CHEUNG Provider: CARLOS Castaneda :1950 A ge:74 Y S ex:Male Date:06/07/2025 Address:[address] [place] [address] TOD[address] DEE YAMILEX [place]AP[address]O, [place], [id number] Pcp:Nas Shea Subjective: * Chief Complaints: * 1 . Tuesday f/u. * HPI: D ermatology: 74 year old male presents with c/o bug bites P t is here today for a f/u on a bug bite he had under the rt eye. Pt sts the swelling is still there and it is kier tender. * ROS: C ARDIOLOGY: no D [...] stents 03/08/2007, Open Heart Surgery-Dr Mott @ [facility] 12/2015, thoracentesis 12/2015, Laparoscopic cholecystectomy - Dr. Wallace 09/06/2016, cardiac defibirilltor placed-Dr Yates 07/04/2020, cataract surgery-right eye 12/2020, Knee Surgery - Due to Infection -01/2025, Cardiac Pacemaker 04/24/2025. * Hospitalization/Major Diagno stic Procedure: H ER-suture to pinky finger of left hand 09/25/2009, C-scope - Dr. Kimball 09/2013, [facility] ER-Afib 01/2016, [facility] pancreatitis 09/02/2016, Left heart cath/[place]/ normal flow of revascularized vessels 02/2017, [facility]-tachycardia 07/02-12/2019, [facility] - Fall 11/14/2023. * Family History: F [...] of face - L02.01 3 . B [place] 27.0-27.9,adult - Z68.27 Plan: * Treatment: * Procedure Codes: G 2211 Complex e/m visit add on, 1036F TOBACCO NON-USER, G8420 BMI<30 AND >=22 CALC & DOCU, G8783 BP SCR PRFRM RCMDD DEFIND SCR INTVL, G8752 MOST RECENT SYSTOLIC BP < 140MM HG, G8754 MOST RECENT DIASTOLIC BP < 90MM HG * Follow Up: with Monse * Images: Billing Information: * Visit Code: 57101 Office Visit, Est Pt., Level 3. * Procedure Codes: G2211 Complex e/m visit add on. 1036F TOBACCO NON-USER. G8420 BMI<30 AND >=22 CALC & DOCU. G8783 BP SCR PRFRM RCMDD DEFIND SCR INTVL. G8752 MOST RECENT SYSTOLIC BP < 140MM HG. G8754 MOST RECENT DIASTOLIC BP < 90MM HG. * Electronic signature of CARLOS Chase on 07/30/2025 at 08:56 AM EDT Sign off status: Pending * Provider: CARLOS Castaneda Date: 0 06/07/2025 Generated for Galilea lozano/Ken/Stevenitting on: 0 07/30/2025 08:56 AM EDT History and Physical Notes * HPI (History of Present Illness) Category Sub-Category Detail Notes Category Not es Dermatology bug bites Pt is here today for a f/u on a bug bite he had under the rt eye. Pt sts the swelling is still there and it is kier tender Examination Category Sub-Category Detail Notes Category Not es General Examination HEENT: under right eye is a bug bite that has surrounding erythema and edema under the orbit, the area is tender and more firm today, it is not fluctuant Heart: RSR Lungs: clear to auscultatio n General Appearance: NAD Chest: normal shape and exp ansion
--- OUTSIDE RECORDS SUMMARY | 2025-06-13 05:15 | XMS_ITS ---
Author Organization [facility] Address [address] [id number] Care Team Providers Care Asset Management Lead Name Role Phone Nas Shea Primary Care Provider [phone] Allergies No Known Allergies REASON FOR VISIT [...] Encounter Location Date Provider Diagnosis Joel 1210 [facility] 36 [facility] [address] [place] [id number] 06/13/2025 Nas Shea Orbital cellulitis, right H05.011 [...] Provider Name:Nas Solis, 11/05/2025 09:15:00 AM, 1210 [facility] 36 [facility], [address], [place], [id number], Progress Notes * ANGIE SWANOB: 0 (75 yo M)Acc No.[id number]:06/13/2025 Patient: Henry KEV CHEUNG Provider: Nas Shea M.D. :1950 A ge:74 Y S ex:Male Date:06/13/2025 Address:[address] [place] [address] LUIZ KAMINSKI , [place], [id number] Subjective: * Chief Complaints: * 1 . [...] stents 03/08/2007, Open Heart Surgery-Dr Mott @ [facility] 12/2015, thoracentesis 12/2015, Laparoscopic cholecystectomy - Dr. Wallace 09/06/2016, cardiac defibirilltor placed-Dr Yates 07/04/2020, cataract surgery-right eye 12/2020, Knee Surgery - Due to Infection -01/2025, Cardiac Pacemaker 04/24/2025. * Hospitalization/Major Diagno stic Procedure: H ER-suture to pinky finger of left hand 09/25/2009, C-scope - Dr. Kimball 09/2013, [facility] ER-Afib 01/2016, [facility]-Gallstone pancreatitis 09/02/2016, Left heart cath/[place]/ normal [...] of face - L02.01 3 . B [place] 26.0-26.9,adult - Z68.26 Plan: * Treatment: * Procedure Codes: G 2211 Complex e/m visit add on, 1036F TOBACCO NON-USER, G8783 BP SCR PRFRM RCMDD DEFIND SCR INTVL, G8752 MOST RECENT SYSTOLIC BP < 140MM HG, G8754 MOST RECENT DIASTOLIC BP < 90MM HG * Follow Up: a s scheduled * Images: Billing Information: * Visit Code: 13803 Office Visit, Est Pt., Level 3. * Procedure Codes: G2211 Complex e/m visit add on. 1036F TOBACCO NON-USER. G8783 BP SCR PRFRM RCMDD DEFIND SCR INTVL. G8752 MOST RECENT SYSTOLIC BP < 140MM HG. G8754 MOST RECENT DIASTOLIC BP < 90MM HG. * Electronic signature of Nas Shea MD on 07/30/2025 at 08:58 AM EDT Sign off status: Pending * Provider: Nas Shea M.D. Date: 0 06/13/2025 Generated for Galilea lozano/Ken/Stevenitting on: 0 07/30/2025 08:58 AM EDT History and Physical Notes * [...]
--- OUTSIDE RECORDS SUMMARY | 2025-07-02 05:15 | XMS_ITS ---
Author Organization [facility] Address [address] [place], [place] [id number] Care Team Providers Care Head Boys Tennis Coach Name Role Phone Nas Shea Primary Care [...] 86 Performing Lab: Notes/Report: Test performed by [employer] [facility] , [address], [place] [address] Renato Cobb MD, Journeyman Pipefitter CLIA: [id number] Sodium 142 135-145 mmol/L Potassium 4.4 3.5-5.3 [...] 48 Performing Lab: Notes/Report: Test performed by [employer], [address] , [address] , [place] [address] Renato Cobb MD, Journeyman Pipefitter CLIA: [id number] Cholesterol 93 <200 mg/dL Triglycerides 84 <150 [...] Interpretation:4.19 Performing Lab: Notes/Report: Test performed by [employer] [address] [place] [address] , [place] [address] Renato Cobb MD, Journeyman Pipefitter CLIA: [id number] TSH 4.19 0.43-5.25 mU/L P-Microalbumin/Creatinine, R andom Urine Sample Reviewed date:07/04/2025 08:31:36 AM Interpretation:A/C 44 Performing Lab: Notes/Report: Test performed by [employer] [address] [place], [place] [address] [place] , [place] [address] Renato Cobb MD, Journeyman Pipefitter CLIA: [id number] Albumin/Creatinine Ratio, Urine 44 0-30 ug/m g [...] Status W/U Status Risk Notes Problem Insomnia (038061703) Insomnia (G47.00) Active confirmed Vital Signs Weight 193.6 lbs 07/02/2025 Blood pressure systolic 130 mm Hg 07/02/20 25 Blood pressure diastolic 82 mm Hg 025 Heart Rate 71 /min 07/02/2025 Height 72 in 07/02/2025 BMI 26.25 kg/m2 07/02/2025 Encounters Encounter Location Date Provider Diagnosis [facility] [address] [place], [place] [id number] 07/02/2025 Nas Shea Adult general medica l [...] [address], [address], [place], [place], [id number], Progress Notes * ANGIE SWANOB: 0 (75 yo M)Acc No.[id number]:07/02/2025 Annual Wellness Visit Patient: Henry KEV CHEUNG Provider: Nas Shea M.D. :1950 A ge:75 Y S ex:Male Date:07/02/2025 Address:[address] [place] [address] TODD KAMINSKI , [phone] Subjective: * Chief Complaints: * 1 . [...] 09/2013, [facility] ER-Afib 01/2016, [facility] pancreatitis [...] I nsomnia - G47.00 1 0. B ID 26.0-26.9,adult - Z68.26 Plan: * Treatment: 2. [...] VST, G2211 Complex e/[place], [address] GLYCATED HEMOGLOBIN TEST, Modifiers: QW , 1090F PRES/ABSN URINE INCON ASSESS, 3288F FALL RISK ASSESSMENT DOCD, 1170F FXNL STATUS ASSESSED, 1159F MED LIST DOCD IN RCRD, 1003F LEVEL OF ACTIVITY ASSESS, 26788 CBC WITH AUTO DIFF, 1036F TOBACCO NON- [...] * Images: Billing Information: * Visit Code: 31855 Office Visit, Est Pt., Level 3. Modifiers: 25 * Procedure Codes: G0439 ANNUAL WELLNESS VST; PPS SUBSQT VST. G2211 Complex e/[place]. [address] GLYCATED HEMOGLOBIN TEST. Modifiers: QW 1090F PRES/ABSN URINE INCON ASSESS. 3288F FALL RISK ASSESSMENT DOCD. 1170F FXNL STATUS ASSESSED. 1159F MED LIST DOCD IN RCRD. 1003F LEVEL OF ACTIVITY ASSESS. 10168 CBC WITH AUTO DIFF. 1036F TOBACCO NON-USER. [...] Pending * Provider: Nas Shea M.D. Date: 07/02/2025 Generated for Meloniei marta/Ken/eTajsmitting on: 07/30/2025 08:57 AM EDT History and Physical [...] the past 12 months Depression Screening: Describes [facility] as: downhearted due to being recently [...]
--- OUTSIDE RECORDS SUMMARY | 2025-07-30 08:57 | XMS_ITS | Encounter Summary ---
Author Organization Healthcare Address [address] [place] [address] Care Team Providers Care Nuclear Radiation Engineer Name Role Phone Kai Shea MD Primary Care Provider [phone]- [phone] Jessica Perales DO Unavailable [phone] Encounter Details Date Type Department Care Team (Late st Contact Info) Description 11/05/2024 Orders Only [place] [facility] [address], [address] [place] [address] Rome Yrok, DO [address] [id number] Neuropathy Social History Tobacco Use Types Packs/Day [...] drink first t vane in the morning (EYE-WALLPAPER PRINTER HELPER) to steady your nerves or to [...] documented as of this encounter Care Teams Nuclear Radiation Engineer Relationship Specialty Start Date End Date Kai Shea MD [address] [place] [address] PCP - General 03/13/21 Jessica Perales DO [address] [place] [address] Resident Neurology 06/16/21 documented as of this encounter
--- OUTSIDE RECORDS SUMMARY | 2025-07-30 08:57 | XMS_ITS | Encounter Summary ---
Author Organization Healthcare Address [address] [place] [address] Care Team Providers Care Plastic Products Sales Representative Name Role Phone Kai Shea MD Primary Care Provider [phone] Jessica Perales DO Unavailable [phone] Encounter Details Date Type Department Care Team (Late st Contact Info) Description 12/31/2024 Lab Requisition [facility] [address] [place] [address] Valdo Carrillo, CARLOS [address] [place] [address] Encounter for general adult medical examination without [...] place to sleep or slept in a assisted (including now)? No 05/04/2024 PHQ-9 Answer Date [...] drink first t vane in the morning (EYE-DIALYSIS REGISTERED NURSE) to steady your nerves or to [...] Culture Light Growth 01/06/2025 10:[address] [facility] Culture Staphylococcus epidermidis(A) BASSAM 01/06/2025 10:[address] [facility] Comment: This isolate has been identified using the FDA Approved [employer] [place] System The organism value for this result has been updated. These results have been appended to the previously preliminary verified report. Edited result: Previously reported as Gram positive cocci on 01/02/2025 at 0908 EST. Gram Stain Result Numerous Polymorphonuclear leukocytes(A) 01/06/2025 10:[address] [facility] Gram Stain Result Rare Gram positive cocci in pairs(A) 01/06/2025 10:[address] [facility] Joint Fluid Synovial fluid specimen / Unknown 12/31/2024 5:40 PM EST 12/31/2024 6:06 PM EST Narrative Organism Antibiotic Method Susceptibility Staphylococcus epidermidis Clindamycin BASSAM >2 ug/ml: Resistant Staphylococcus epidermidis Daptomycin BASSAM <=1 ug/ml: Susceptible Staphylococcus epidermidis Erythromycin BASSAM >4 ug/ml: Resistant Staphylococcus epidermidis Gentamicin BASSAM <=1 ug/ml: Susceptible Staphylococcus epidermidis Linezolid BASSAM 2 ug/ml: Susceptible Staphylococcus epidermidis Minocycline ABSSAM 2 ug/ml: Susceptible Staphylococcus epidermidis Oxacillin BASSAM 0.5 ug/ml: Resistant Staphylococcus epidermidis Penicillin G BASSAM <=0.125 ug/ml: Resistant Staphylococcus epidermidis Tetracycline BASSAM 2 ug/ml: Susceptible Staphylococcus epidermidis Vancomycin BASSAM 1 ug/ml: Susceptible us Valdo GONZALEZ LAB MICROBIOLOGY - GENERAL ORDERABLES Final Result [facility] [address] [place] [address] documented in this encounter Visit Diagnoses Diagnosis [...] documented as of this encounter Care Teams Plastic Products Sales Representative Relationship Specialty Start Date End Date Kai Shea MD [address] [place] [address] PCP - General 03/13/21 Jessica Perales DO [address] [facility] [address] [place] [address] Resident Neurology 06/16/21 documented as of this encounter
--- OUTSIDE RECORDS SUMMARY | 2025-07-30 08:57 | XMS_ITS | Clinical Summary ---
Author Organization [facility] Address [address] [place] [address] Care Team Providers Care Process Trainer Name Role Phone Kai Shea MD Primary [...] (2 of 2 - PPSV23) 01/20/2020 01/19/2019 INFLUENZA VACCINE 05/31/2025 RSV Vaccine - Adults (1 - 1- dose 75+ series) 2025 COVID-19 Vaccine ( - 2024- season) 2025 10/08/2021, 01/16/2021, 12/24/2020 TDAP/TD VACCINES (3 - Td or Tdap) 03/17/2033 023, 01/19/2019 Insurance MEDICARE A & B [employer] Care Teams Process Trainer Relationship Specialty Start Date End Date Kai Shea MD [address] [facility] [address] [place] [address] PCP - General Family Medicine 04/05/23
--- OUTSIDE RECORDS SUMMARY | 2025-07-30 08:57 | XMS_ITS | Encounter Summary ---
Author Organization [place] [address] Care Team Providers Care University Intern Name Role Phone Unavailable Primary Care Provider Unavailabl e Encounter Details Date Type Department Care Team (Late st Contact Info) Description 01/07/2023 Orders Only [facility] [place] [phone] Barbara Bess MD [address] [place] [phone] Social History Tobacco Use Types Packs/Day Years [...] Narrative [facility] - 01/24/2023 5:22 PM EDT Requesting Provider: GIOVANNA Chaney Specimen = [id number] us Barbara Bess MD PATHOLOGY ORDERABLES Final Resul t [facility] [address] [place] [address] documented in this encounter Visit Diagnoses Not on filedocumented in this encounter
--- OUTSIDE RECORDS SUMMARY | 2025-07-30 08:57 | XMS_ITS | Encounter Summary ---
Author Organization Healthcare Address [address] [place] [address] Care Team Providers Care Industrial Ecologist Name Role Phone Kai Shea MD Primary Care Provider [phone]- [phone] Jessica Perales DO Unavailable [phone] Encounter Details Date Type Department Care Team (Late st Contact Info) Description 12/31/2024 Lab Requisition [facility] [address] [place] [address] Valdo Carrillo, CARLOS [address] [place] [address] Encounter for general adult medical examination without [...] drink first t vane in the morning (EYE-HAND PACKER/PACKAGER) to steady your nerves or to get [...] LAB HEMATOLOGY METHOD 01/01/2025 2:08 PM EST [facility] Specimen Source, Body Fluid LAB HEMATOLOGY METHOD 01/01/2025 2:08 PM EST [facility] Clinical Diagnosis, Body Fluid Joint fluid. Neuropathy. History of plasma cell neoplasm and Parkinson's LAB HEMATOLOGY METHOD 01/01/2025 2:08 PM EST [facility] Interpretation , Body Fluid No evidence of malignancy; acute inflammatory cells. See comment A resident was involved in the service. I attest I examined the relevant preparations for the specimens and confirmed the diagnosis or interpretation. 01/01/2025 2:08 PM EST [facility] Pathologist Signature, Body Fluid 01/01/2025 2:08 PM EST [facility] Comment:Reviewed by: Prashanth Montiel MD LAB CP ASR DISCLAIMER Yes 01/01/2025 2:08 PM EST [facility] Joint Fluid 12/31/2024 3:15 PM EST 12/31/2024 6:01 PM EST Narrative [facility] - 01/01/2025 2:08 PM EST Correlation with microbiology studies is suggested. us Valdo GONZALEZ LAB BODY FLUIDS AND STOOLS ORDERABLES Final Result [facility] [address] [place] [address] * (ABNORMAL) Body Fluid Cell Count w/ Diff (12/31/2024 3:15 PM EST) Color, Body fluid Yellow LAB HEMATOLOGY METHOD 12/31/2024 8:00 PM [facility] Appearance, Body fluid Cloudy(A) LAB HEMATOLOGY METHOD 12/31/2024 8:00 PM [facility] Volume, Body fluid 2.5 cc LAB HEMATOLOGY METHOD 12/31/2024 8:00 PM [facility] Fluid Container Specimen received in EDTA tube LAB HEMATOLOGY METHOD 12/31/2024 8:00 PM [facility] Red Blood Cell Count, Body fluid 5,000 uL LAB HEMATOLOGY METHOD 12/31/2024 8:00 PM [facility] Total Nucleated Cell Count, Body fluid 44,000 uL LAB HEMATOLOGY METHOD 12/31/2024 8:00 PM [facility] Neutrophils %, Body fluid 95 % LAB HEMATOLOGY METHOD 12/31/2024 8:00 PM [facility] Lymphocytes %, Body fluid 1 % LAB HEMATOLOGY METHOD 12/31/2024 8:00 PM [facility] Monocytes/Macro phages %, Body fluid 4 % LAB HEMATOLOGY METHOD 12/31/2024 8:00 PM [facility] Eosinophils %, Body fluid 0 % LAB HEMATOLOGY METHOD 12/31/2024 8:00 PM [facility] Lining/Mesothel ial Cells %, Body fluid 0 % LAB HEMATOLOGY METHOD 12/31/2024 8:00 PM [facility] Neutrophils Absolute (PMN), Body fluid 41,800 uL LAB HEMATOLOGY METHOD 12/31/2024 8:00 PM [facility] Lymphocytes Absolute, Body fluid 440 uL LAB HEMATOLOGY METHOD 12/31/2024 8:00 PM [facility] Monocytes/Macro phages Absolute, Body fluid 1,760 uL LAB HEMATOLOGY METHOD 12/31/2024 8:00 PM [facility] Eosinophils Absolute, Body fluid 0 uL LAB HEMATOLOGY METHOD 12/31/2024 8:00 PM [facility] Basophils Absolute, Body fluid 0 uL LAB HEMATOLOGY METHOD 12/31/2024 8:00 PM [facility] Lining/Mesothel ial Cells Absolute, Body fluid 0 uL LAB HEMATOLOGY METHOD 12/31/2024 8:00 PM EST [facility] Comment, Body fluid None LAB HEMATOLOGY METHOD 12/31/2024 8:00 PM EST [facility] Comment:This is an appended report. These results have been appended to a previously preliminary verified report. Basophils %, Body fluid 0 % LAB HEMATOLOGY METHOD 12/31/2024 8:00 PM EST [facility] Joint Fluid 12/31/2024 3:15 PM EST 12/31/2024 6:01 PM EST Valdo GONZALEZ LAB BODY FLUIDS AN D STOOLS ORDERABLES NO SPECIMEN TYPE/SOURCE Final Result Performing Organization Address [facility] Co de Phone Number [facility] [address] [place] [address] * (ABNORMAL) Synovial fluid, crystal (12/31/2024 3:15 PM EST) Crystals, Joint Fluid Calcium Pyrophosphate Crystals Present(A) No Crystals Present 12/31/2024 11:06 PM EST [facility] Joint Fluid 12/31/2024 3:15 PM EST 12/31/2024 6:01 PM EST Narrative [facility] - 12/31/2024 11:06 PM EST Under compensated polarized light microscopy rhomboidal positively birefringent crystals are seen consistent with Calcium Pyrophosphate. The presence of steroid crystals may result in a false positive. Correlate results with recent history up to 2 months of steroid injection. Valdo GONZALEZ LAB BODY FLUIDS AND STOOLS ORDERABLES Final Result Performing Organization Address [facility] Co de Phone Number [facility] [address] [place] [address] documented in this encounter Visit Diagnoses Diagnosis [...] documented as of this encounter Care Teams Industrial Ecologist Relationship Specialty Start Date End Date Kai Shea MD [address] [place] [address] PCP - General 03/13/21 Jessica Perales DO [address] [facility] [address] [place] [address] Resident Neurology 06/16/21 documented as of this encounter
--- OUTSIDE RECORDS SUMMARY | 2025-07-30 08:57 | XMS_ITS | Encounter Summary ---
Author Organization [place] [address] Care Team Providers Care Case Resolution Specialist Name Role Phone Unavailable Primary Care Provider Unavailabl e Encounter Details Date Type Department Care Team (Late st Contact Info) Description 01/07/2023 Orders Only [facility] [place] [phone] Barbara Bess MD [address] [place] [phone] Social History Tobacco Use Types Packs/Day Years [...] AM EST) 01/07/2023 9:45 AM EST Narrative [facility] - 01/16/2023 11:22 AM EDT Requesting Provider: GIOVANNA Chaney Specimen = [id number] us Barbara Bess MD PATHOLOGY ORDERABLES Final Resul t Performing Organization Address City/State/[facility] Co de Phone Number [facility] [address] [place] [address] documented in this encounter Visit Diagnoses Not on filedocumented in this encounter
--- OUTSIDE RECORDS SUMMARY | 2025-07-30 08:57 | XMS_ITS | Clinical Summary ---
Author Organization [facility] Address [address] [place] [address] Care Team Providers Care Chef & Owner Name Role Phone Kai Shea MD Primary Care Provider [phone]- [phone] Jessica Perales DO Unavailable [phone] Allergies No known active allergies Medications atorvastatin [...] mouth every night. 360 tablet 3 12/03/2024 Active pregabalin (Lyrica) 50 MG capsuleIndicati ons:Neuropathy Take 1 capsule (50 mg) by mouth 2 (two) times a day. 60 capsule 1 12/04/2024 Active Active Problems Problem Noted Date Diagnosed Date Neuropathy 2021 Parkinson's disease 2021 Hypothyroidism Obesity [...] Signed by Mar Diaz MD on 09/21/2021 Resolved Problems Problem Noted Date Diagnosed Date Resolved Date Fall 05/04/2024 07/21/2025 Debility 05/03/2024 07/21/2025 Acute respiratory failure with hypoxia 05/03/2024 07/21/2025 Immunizations Immunization Administration Dates Next Due [employer] COVID-19 Vaccine (Purple Cap) 12 + 01/16/2021,12/24/2020 [...] drink first t vane in the morning (EYE-AUTOMOTIVE ENGINEERING TECHNICIAN) to steady your nerves or to get rid of a hangover? 0 05/05/2024 CAGE Questionnaire Score 0 024 Utilities Answer Date Recorded In the past 12 months has th [employer] electric, gas, oil, or water company threatened [...] Vaccine: 50+ Years (2 of 2 - PPSV23, PCV20, or PCV21) 03/16/2019 01/19/2019 [facility]-RSV Vaccine: 60+ Years or (1 - 1-dose 75+ series) 2025 [id number] Vaccine (4 - 2024- season) 2025 10/08/2021, 01/16/2021, 12/24/2020 [facility]-Influenza Vaccine (#1) 2025 [...] LAB BLOOD ORDERABLES Final Result [facility] [address] [place] [address] from Last 3 Months or Most Recently Relevant to Health Maintenance Insurance MEDICARE [facility] Advance Directives Documents on File Type Date Recorded Patient Lining Sewer Expl anation Advance Directives and Living Will 05/04/2024 2:43 PM patient does not hav e an AD * Full Code (Latest Code Status on File) Date Activated Date Inactivated Comments 05/03/2024 10:21 PM 05/05/2024 2:20 PM Question Answer Comments Patient has decision-making capacity? Yes Care Teams Chef & Owner Relationship Specialty Start Date End Date Kai Shea MD [address] [place] [address] PCP - General 03/13/21 Jessica Perales DO [address] [place] [address] Resident Neurology 06/16/21
--- OUTSIDE RECORDS SUMMARY | 2025-07-30 08:57 | XMS_ITS | Clinical Summary ---
Author Organization [facility] Address [address] [facility] [address] [place] [address] Phone Care Team Providers Care Applications Specialist Name Role Phone Unavailable Primary Care [...] 2 - PCV20 or PCV21) 01/20/2020 01/19/2019 RSV or 60+ (1 - 1-dose 75+ series) 2025 COVID-19 Vaccine (4 - 2024-2 6 season) 2025 10/08/2021, 01/16/2021, 12/24/2020 Influenza Vaccine (#1) 2025 DTaP/TDaP/Td (2 - Td or Tdap) 01/19/2029 01/19/2019 Hepatitis B Vaccine Aged Out No longe r eligible based on patient's age to complete this topic Meningococcal B Vaccine Aged Out No l onger eligible based on patient's age to complete this topic Insurance MEDICARE [place] PART A AND B FEDERAL [facility] FEDERAL /[place] [address] [place]ARE [place] PART A AND B ANTH FED[place]AL
--- OUTSIDE RECORDS SUMMARY | 2025-07-30 08:57 | XMS_ITS | Encounter Summary ---
Author Organization [place] [address] Care Team Providers Care Manager Of Customer Billing Name Role Phone Unavailable Primary Care Provider Unavailabl e Encounter Details Date Type Department Care Team (Late st Contact Info) Description 01/07/2023 Orders Only [facility] [employer] [place] [phone] Barbara Bess MD [address] [place] [phone] Social History Tobacco Use Types Packs/Day Years [...] AM EST) 01/07/2023 9:45 AM EST Narrative [facility] - 01/17/2023 1:28 PM EDT Requesting Provider: GIOVANNA Chaney Specimen = [id number] us Barbara Bess MD PATHOLOGY ORDERABLES Final Resul t [facility] [address] [place] [address] documented in this encounter Visit Diagnoses Not on filedocumented in this encounter
--- OUTSIDE RECORDS SUMMARY | 2025-07-30 08:58 | XMS_ITS | Encounter Summary ---
Author Organization Healthcare Address [address] [place] [address] Care Team Providers Care Wharf Attendant Name Role Phone Kai Shea MD Primary Care Provider [phone] Jessica Perales DO Unavailable Encounter Details Date Type Department Care Team (Late st Contact Info) Description 01/15/2025 Lab Requisition [facility] [address] [place] [address] Sara Alegre [address] [place] [address] Encounter for general adult medical examination without [...] drink first t vane in the morning ([employer]URE ACT SPECIALIST) to steady your nerves or to get [...] LAB HEMATOLOGY METHOD 01/16/2025 4:15 PM EDT [facility] Specimen Source, Body Fluid LAB HEMATOLOGY METHOD 01/16/2025 4:15 PM EDT [facility] Clinical Diagnosis, Body Fluid Joint effusion LAB HEMATOLOGY METHOD 01/16/2025 4:15 PM EDT [facility] Interpretation , Body Fluid Acute inflammatory cells; correlate with Gram stain/culture and/or crystal analysis. A resident was involved in the service. I attest I examined the relevant preparations for the specimens and confirmed the diagnosis or interpretation. 01/16/2025 4:15 PM EDT [facility] Pathologist Signature, Body Fluid 01/16/2025 4:15 PM EDT [facility] Comment:Reviewed by: Isabel Donohue MD LAB CP ASR DISCLAIMER Yes 01/16/2025 4:15 PM EDT [facility] Joint Fluid 01/15/2025 12:1 0 PM EDT 01/15/2025 2:41 PM EDT us Sara Codey LAB BODY FLUIDS AND STOOLS ORDER MARYLIN Final Result [facility] [address] [place] [address] * (ABNORMAL) Joint Fluid Crystals (01/15/2025 12:10 PM EDT) Crystals, Joint Fluid Calcium Pyrophosphate Crystals Present(A) No Crystals Present 01/15/2025 7:55 PM EDT [facility] Joint Fluid 01/15/2025 12:1 0 PM EDT 01/15/2025 2:41 PM EDT Narrative [facility] - 01/15/2025 7:55 PM EDT Under compensated polarized light microscopy rhomboidal positively birefringent crystals are seen consistent with Calcium Pyrophosphate. The presence of steroid crystals may result in a false positive. Correlate results with recent history up to 2 months of steroid injection. Sara Guy LAB BODY FLUIDS AND STOOLS ORDER MARYLIN Final Result [facility] [address] [place] [address] * (ABNORMAL) Body Fluid Cell Count w/ Diff (01/15/2025 12:10 PM EDT) Color, Body fluid Red LAB HEMATOLOGY METHOD 01/15/2025 7:53 PM EDT [facility] Appearance, Body fluid Cloudy(A) LAB HEMATOLOGY METHOD 01/15/2025 7:53 PM EDT [facility] Volume, Body fluid 4.0 cc LAB HEMATOLOGY METHOD 01/15/2025 7:53 PM EDT [facility] Fluid Container Specimen received in Sodium Heparin LAB HEMATOLOGY METHOD 01/15/2025 7:53 PM EDT [facility] Red Blood Cell Count, Body fluid 45,500 uL LAB HEMATOLOGY METHOD 01/15/2025 7:53 PM EDT [facility] Comment:Clumps present, coun t may be affected. Test performed by manual method. Total Nucleated Cell Count, Body fluid 75,000 uL LAB HEMATOLOGY METHOD 01/15/2025 7:53 PM EDT [facility] Comment:Clumps present, coun t may be affected. Test performed by manual method. Neutrophils %, Body fluid 93 % LAB HEMATOLOGY METHOD 01/15/2025 7:53 PM EDT [facility] Lymphocytes %, Body fluid 0 % LAB HEMATOLOGY METHOD 01/15/2025 7:53 PM EDT [facility] Monocytes/Macro phages %, Body fluid 7 % LAB HEMATOLOGY METHOD 01/15/2025 7:53 PM EDT [facility] Eosinophils %, Body fluid 0 % LAB HEMATOLOGY METHOD 01/15/2025 7:53 PM EDT [facility] Lining/Mesothel ial Cells %, Body fluid 0 % LAB HEMATOLOGY METHOD 01/15/2025 7:53 PM EDT [facility] Neutrophils Absolute (PMN), Body fluid 69,750 uL LAB HEMATOLOGY METHOD 01/15/2025 7:53 PM EDT [facility] Lymphocytes Absolute, Body fluid 0 uL LAB HEMATOLOGY METHOD 01/15/2025 7:53 PM EDT [facility] Monocytes/Macro phages Absolute, Body fluid 5,250 uL LAB HEMATOLOGY METHOD 01/15/2025 7:53 PM EDT [facility] Eosinophils Absolute, Body fluid 0 uL LAB HEMATOLOGY METHOD 01/15/2025 7:53 PM EDT [facility] Basophils Absolute, Body fluid 0 uL LAB HEMATOLOGY METHOD 01/15/2025 7:53 PM EDT [facility] Lining/Mesothel ial Cells Absolute, Body fluid 0 uL LAB HEMATOLOGY METHOD 01/15/2025 7:53 PM EDT [facility] Comment, Body fluid None LAB HEMATOLOGY METHOD 01/15/2025 7:53 PM EDT [facility] Comment:This is an appended report. These results have been appended to a previously preliminary verified report. Basophils %, Body fluid 0 % LAB HEMATOLOGY METHOD 01/15/2025 7:53 PM EDT [facility] Joint Fluid 01/15/2025 12:1 0 PM EDT 01/15/2025 2:41 PM EDT Sara Alegre LAB BODY FLUIDS AND STOOLS ORDERABLES NO SPECIMEN TYPE/SOURCE Final Result [facility] [address] [place] [address] documented in this encounter Visit Diagnoses Diagnosis [...] documented as of this encounter Care Teams Wharf Attendant Relationship Specialty Start Date End Date Kai Shea MD [address] [place] [address] PCP - General 03/13/21 Jessica Perales DO [address] [place] [address] Resident Neurology 06/16/21 documented as of this encounter
--- OUTSIDE RECORDS SUMMARY | 2025-07-30 08:58 | XMS_ITS | Encounter Summary ---
Author Organization Healthcare Address [address] [place] [address] Care Team Providers Care Coater Name Role Phone Kai Shea MD Primary Care Provider [phone]- [phone] Jessica Perales DO Unavailable [phone] Encounter Details Date Type Department Care Team (Late st Contact Info) Description 09/17/2021 Lab Requisition [facility] [address] [place] [address] Mar Diaz MD [address] [facility] [address] [place] [phone] Decreased white blood cell count, unspecified Social [...] AM EST) Case Report Bone Marrow Case: [id number] Authorizing Provider: Mar Diaz MD Collected: 09/17/2021 0940 Ordering Location: [facility] Received: 09/17/2021 0940 Pathologist: Jen Tesfaye MD Specimen: Bone Marrow Biopsy, [id number] 09/21/2021 1:36 PM EST [facility] Final Diagnosis PERIPHERAL BLOOD AND BONE MARROW, POSTERIOR ILIAC CREST (PERIPHERAL SMEAR, ASPIRATE SMEAR, AND CORE BIOPSY): - KAPPA RESECTED PLASMA CELL NEOPLASM, REPRESENTING APPROXIMATELY 20% OF HYPERCELLULAR BONE MARROW SEE COMMENT 09/21/2021 1:36 PM EST [facility] at 1336 EST Comment The differential diagnosis includes smoldering myeloma and a plasma cell myeloma. Correlation with complete radiologic and laboratory studies is required for final diagnosis. 09/21/2021 1:36 PM EST [facility] Clinical Information D72.819 - Decreased white blood cell count, unspecified [ICD-10-CM] 09/21/2021 1:36 PM EST [facility] CBC and Differential PERIPHERAL BLOOD: No results found for requested labs within last 200 hours. DIFFERENTIAL:No results found for requested labs within last 200 hours. Leukopenia with mild lymphopenia and mild neutropenia.Macro cytic, normocytic red blood cells without anemia. Adequate platelets.no circulating plasma cells. 09/21/2021 1:36 PM EST [facility] Bone Marrow Differential BONE MARROW DIFFERENTIAL: 200 cells Normal Patient Neutrophils 15-50 12 Metamyelocytes 4-19 19 Myelocytes 1-18 23 Promyelocytes 1-8 0 Blasts 0-2 0 Monocytes 0-5 1 Erythroid 16-38 26 Lymphocytes 3-24 5 Eosinophils 0-6 7 Basophils 0-2 1 Plasma cells 0-4 6 Other 09/21/2021 1:36 PM EST [facility] Bone Marrow Aspirate and Biopsy The bone marrow aspirate smears show several cellular marrow particles with maturing trilineage hematopoiesis. Myeloid precursors are maturing . Blasts are not increased. 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 Plasma cells are increased and account for [...] Gain of 11q/CCND1 09/21/2021 1:36 PM EST [facility] Gross Description A. [id number] Received along with a corresponding pathology report from [facility] are 19 slide(s) labeled outside case: [id number] collected on 01/08/2021. 09/21/2021 1:36 PM EST [facility] Note: A resident was involved in the service. I attest I examined the relevant preparations for the specimens and confirmed the diagnosis or interpretation. 09/21/2021 1:36 PM EST [facility] Bone Marrow Specimen from bone marrow obtained by biopsy / Unknown 09/17/2021 9:40 AM EST 09/17/2021 9:40 AM EST us Mar Diaz MD LAB PATHOLOGY ORDERABLES Rosa godinez Result [facility] [address] [place] [address] documented in this encounter Visit Diagnoses Diagnosis Decreased white blood cell count, unspecified documented in this encounter Additional Health Concerns Assessment Noted Time A fall risk assessment has been complete d for the patient 2021 1:47 PM EDT documented as of this encounter Care Teams Coater Relationship Specialty Start Date End Date Kai Shea MD [address] [place] [address] PCP - General 03/13/21 Jessica Perales DO [address] [place] [address] Resident Neurology 06/16/21 documented as of this encounter
--- OUTSIDE RECORDS SUMMARY | 2025-07-30 08:58 | XMS_ITS | Patient Health Record ---
Author Organization [facility] Address [address] [place] [id number] Care Team Providers Care Structural Analyst Name Role Phone Nas Shea Primary Care Provider Jessie Velez Unavailable [phone] Farida Ponce Unavailable [phone] Allergies No Known Allergies Results Component Value [...] AGRATIO 2.0 1.1-1.8 ALP 90 38-126 U/L CBC Venipuncture (in house) Reviewed date:07/04/2025 08:31:36 [...] 86 Performing Lab: Notes/Report: Test performed by [facility] [employer] [address] [place] [address] Isaak Hercules C, [place] [address] Renato Cobb MD, Apprentice Photographer CLIA: [id number] Sodium 142 135-145 mmol/L Potassium 4.4 3.5-5.3 [...] 48 Performing Lab: Notes/Report: Test performed by [facility] [address] [place] [address] , Isaak C, [place] [address] Renato Cobb MD, Apprentice Photographer CLIA: [id number] Cholesterol 93 <200 mg/dL Triglycerides 84 <150 [...] Interpretation:4.19 Performing Lab: Notes/Report: Test performed by [facility] [address] [place] [address] , [address], [place] [address] Renato Cobb MD, Apprentice Photographer CLIA: [id number] TSH 4.19 0.43-5.25 mU/L P-Microalbumin/Creatinine, R andom Urine Sample Reviewed date:07/04/2025 08:31:36 AM Interpretation:A/C 44 Performing Lab: Notes/Report: Test performed by [facility] [address] [facility] , [address], [place] [address] Renato Cobb MD, Apprentice Photographer CLIA: [id number] Albumin/Creatinine Ratio, Urine 44 0-30 ug/m g Microalbumin, Urine, Random 5.6 Creatinine, Urine 128.0 H-BMP Reviewed date:01/02/2025 08:41:58 AM Interpretation: Performing [...] 0.0 0.0-0.4 K/mm3 BA# 0.0 0-0.2 K/mm3 P-TSH Reviewed date:10/20/2024 11:28:50 AM Interpretation:Normal Performing Lab: Notes/Report: Test performed by [facility] [address] , [address], [place] [address] Renato Cobb MD, Apprentice Photographer CLIA: [id number] TSH 2.38 0.43-5.25 mU/L P-PSA Reviewed date:10/20/2024 11:28:50 AM Interpretation:4.34 Performing Lab: Notes/Report: Test performed by [facility] [address] , [address], [place] [address] Renato Cobb MD, Apprentice Photographer CLIA: [id number] PSA 4.34 <4.00 ng/mL Please note this is an ultrasensitive PSA assay with a lower limit of detection of 0.014 ng/mL. This test is performed by the Becki ECLIA methodology. Values obtained with different assay methods or kits cannot be directly compared. P-Lipid Panel Reviewed date:10/20/2024 11:28:49 AM Interpretation:Normal Performing Lab: Notes/Report: Test performed by [facility] [address] , [address], [place] [address] Renato Cobb MD, Apprentice Photographer CLIA: [id number] Cholesterol 128 <200 mg/dL Triglycerides 147 <150 [...] 6.4 glycohemoglobin 6.4% 5 - 6.5 % P-Hemoglobin A1C Reviewed date:02/07/2025 08:17:27 AM Interpretation: Performing Lab: Notes/Report: Test performed by [facility] [address] [facility] , [place] [address] Renato Cobb MD, Apprentice Photographer CLIA: [id number] Hemoglobin A1C 6.9 <5.7 % The following HbA1c ranges recommended by the [place] [employer] (ADA) may be used as an aid in the diagnosis of diabetes mellitus. HbA1c Suggested Diagnosis >=6.5% Diabetic 5.7% - 6.4% Pre-Diabetic <5.7% Non-Diabetic P-TSH Reviewed date:02/07/2025 08:17:27 AM Interpretation: Performing Lab: Notes/Report: Test performed by [facility] [address] [place] [address] [address] , [place] [address] Renato Cobb MD, Apprentice Photographer CLIA: [id number] TSH 2.88 0.43-5.25 mU/L Estimated Average Glucose Reviewed date:02/07/2025 08:17:27 AM Interpretation: Performing Lab: Notes/Report: Test performed by [facility] [address] [place] [address] Isaak Hercules , [place] [address] Renato Cobb MD, Apprentice Photographer CLIA: [id number] Estimated Average Glucose (eAG) 151 Estimated Average [...] Status Levothyroxine Sodium 75 MCG 1 tab(s) orally once a day; Duration: 90 days Active Accu-Chek Softclix Lancets - check glucose once a day; Duration: 100 days 07/24/2025 Active Atorvastatin Calcium 40 MG 1 tablet at bedtime Orally Once a day; Duration: 90 days Active Omeprazole 40 mg 1 capsule orally onc e a day; Duration: 90 days Active Aspirin 81 81 MG 1 tablet Orally Once a day; Duration: 90 days Active Jardiance 10 MG 1 tablet Orally Once a day; Duration: 90 days Active Tamsulosin HCl 0.4 mg 1 capusle orally o nce a day; Duration: 90 days Active Accu-Chek Strips daily; Duration: 100 days 07/24/2025 Active Losartan Potassium 25 MG 1 tablet Orally twice a day Active Lasix 40 MG 1 tablet Orally ever y other day Not-Taking Accu-Chek Guide w/Device once a day E11.59 07/24/2025 Active traZODone HCl 50 MG 1/2-1 tablet at bedtime as needed Orally Once a day; Duration: 30 days 07/02/2025 Active Lasix 20 MG 1 tablet Orally ever y other day prn Active Digoxin 125 MCG 1 tablet Orally Active traMADol HCl 50 MG 1 tab Orally twice a day prn pain 07/02/2025 Active Xarelto 20 MG 1 tablet with food Orally Once a day 10/19/2024 Active Bisoprolol Fumarate 5 mg TAKE ONE TABLET BY MOUTH EVERY DAY; Duration: 90 Active Immunizations Vaccine Route Administration Date Status [...] W/U Status Risk Notes Problem Coronary arteriosclerosis (16559324) 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) Active confirmed Problem Insomnia (644564564) Insomnia (G47.00) Active confirmed Problem History of circulatory system disease (157636689) History of ASCVD (Z86.79) Active confirmed Problem Essential hypertension (31286076) Essential hypertension (I10) Active confirmed Problem Diabetes mellitus with neuropathy (475819396) Diabetes mellitus with neuropathy (E11.40) Active confirmed Problem Benign prostatic hyperplasia (202983683) BPH (benign prostatic hyperplasia) (N40.0) Active confirmed Problem Peripheral neuropathy (986941551) Peripheral neuropathy (G62.9) Active confirmed Problem Hearing loss (90552343) Hearing loss (H91.90) Active confirmed Problem Chronic tension-type headache (484351737) Chronic tension-type headache, not intractable (G44.229) Active confirmed Problem Chronic pain syndrome (021019944) Chronic pain syndrome (G89.4) Active confirmed Problem Chronic atrial fibrillation (108774791) Chronic atrial fibrillation (I48.2) Active confirmed Problem Hyperlipidemia due to type 2 diabetes mellitus (disorder) (906135898630720) Hyperlipidemia associated with type 2 diabetes mellitus (E11.69) Active confirmed Problem Diabetes mellitus (03681449) Diabetes mellitus (E11.9) Active confirmed Problem Gastroesophageal reflux disease (014232204) GERD without esophagitis (K21.9) Active confirmed Problem Unsteady gait (46232188) Unsteady gait (R26.81) Active confirmed Problem Gastroesophageal reflux disease without esophagitis (725471919) Gastroesophageal reflux disease without esophagitis (K21.9) Active confirmed Problem Acquired hypothyroidism (399779713) Acquired hypothyroidism (E03.9) Active confirmed Problem Cardiac pacemaker in situ (370807195) Pacemaker (Z95.0) Active confirmed Problem Lower urinary tract symptoms due to benign prostatic hypertrophy (59470853765951) Benign non-nodular prostatic hyperplasia with lower urinary tract symptoms (N40.1) Active confirmed Problem Displacement of lumbar intervertebral disc without myelopathy (47640901) Bulging lumbar disc (M51.26) Active confirmed Problem Cardiomyopathy (59610402) Cardiomyopathy (I42.9) Active confirmed Problem Multiple myeloma (098583723) Multiple myeloma (C90.00) Active confirmed Problem Dyslipidemia (716923166) Dyslipidemia (E78.5) Active confirmed Problem Skin ulcer (disorder) (02071921) Skin ulcer, limited to breakdown of skin (L98.491) Active confirmed Problem Restless legs (67218442) RLS (restless legs syndrome) (G25.81) Active confirmed Problem Peripheral circulatory disorder associated with diabetes mellitus (873740790) 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) Active confirmed Problem Lumbar spondylosis with myelopathy (68471056) Lumbar spondylosis with myelopathy (M47.16) Active confirmed Problem Significant coronary bypass graft disease (857946044) Coronary artery disease involving coronary bypass graft of nikolski heart without angina pectoris (I25.810) Active confirmed Problem Chronic atrial fibrillation (759842982) Chronic atrial fibrillation (I48.20) Active confirmed Problem Automatic implantable cardiac defibrillator in situ (431000324) Cardiac defibrillator in place (Z95.810) Active confirmed Problem Monoclonal gammopathy of uncertain significance (disorder) (141375267) 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) Active confirmed Problem Pseudogout (422809608) Pseudogout (M11.20) Active confirmed Vital Signs Heart Rate 71 /min 07/02/2025 Blood pressure diastolic 82 mm Hg 07/02/2025 Height 72 in 07/02/2025 Blood pressure systolic 130 mm Hg 07/02/2025 Weight 193.6 lbs 07/02/2025 BMI 26.25 kg/m2 07/02/2025 Encounters Encounter [facility] Date [facility] [id number] [facility] Nas Shea Type 2 diabetes mellitus [...] C90.00 and Screening for prostate cancer Z12.[address] [id number] 01/21/2025 Jessie Velez Septic arthritis of knee M00.9 and Abrasions of multiple sites T07.XXXA [address] [id number] 02/05/2025 R Jesus Shea 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.59 ; Staphylococcal arthritis of right knee M00.061 ; Acquired hypothyroidism E03.9 ; Multiple myeloma C90.00 ; Diabetes mellitus with neuropathy E11.40 ; Dyslipidemia E78.5 ; Essential hypertension I10 ; Cardiomyopathy I42.9 and BMI 25.0-25.9,adult Z68.25 [facility] [place] [id number] 03/19/2025 Jessie Velez Edema leg R60.0 ; [...] hyperplasia) N40.0 and Chronic atrial fibrillation I48.20 [facility] [address] [place], [place] [id number] 03/26/2025 Jessie Velez Hypotension I95.9 ; Edema of both legs R60.0 and BMI 28.0-28.9,adult Z68.28 [facility] [address] [place], [place] [id number] 04/25/2025 R Jesus Monse Pacemaker Z95.0 ; Sk in tear of forearm without complication S51.819A ; Cardiomyopathy I42.9 ; History of ASCVD Z86.79 ; BPH (benign prostatic hyperplasia) N40.0 ; Diabetes mellitus E11.9 ; Peripheral neuropathy G62.9 ; Multiple myeloma C90.00 and BMI 25.0-25.9,adult Z68.25 [facility] [address] [place], [place] [id number] 06/05/2025 Farida Crowdy Multiple myeloma C90 .00 ; Orbital cellulitis, right H05.011 and BMI 26.0-26.9,adult Z68.26 [facility] [address] [place], [place] [id number] 06/07/2025 Farida Crowdy Orbital cellulitis, right H05.011 ; Cutaneous abscess of face L02.01 and BMI 27.0-27.9,adult Z68.27 [facility] [address] [place], [place] [id number] 06/13/2025 R Jesus Monse Orbital cellulitis, right H05.011 ; Cutaneous abscess of face L02.01 and BMI 26.0-26.9,adult Z68.[address] [facility] [address] [place], [place] [id number] 07/02/2025 R Jesus Monse Adult general medica l examination Z00.00 ; Essential hypertension I10 ; Dyslipidemia E78.5 ; Acquired hypothyroidism E03.9 ; MGUS (monoclonal gammopathy of unknown significance) D47.2 ; Peripheral neuropathy G62.9 ; Multiple myeloma C90.00 ; 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.59 ; Insomnia G47.00 and BMI 26.0-26.9,adult Z68.26 [facility] [address] [place], [place] [id number] 10/19/2024 R Jesus Monse ASCVD (arteriosclero tic cardiovascular disease) I25.10 [facility] [address] [place], [place] [id number] 10/20/2024 R Jesus Monse [facility] [address] [place], [place] [id number] 01/03/2025 R Jesus Monse [facility] [address] [place], [place] [id number] 02/07/2025 R Jesus Monse [facility] [address] [place], [place] [id number] 03/19/2025 R Jesus Monse [facility] [address] [place], [place] [id number] 05/21/2025 R Jesus Monse [facility] [address] [place], [place] [id number] 06/18/2025 R Jesus Monse [facility] [address] [place], [place] [id number] 07/04/2025 R Jesus Monse [facility] [address] [place], [place] [id number] 07/19/2025 R Jesus Monse [facility] [address] [place], [place] [id number] 07/29/2025 R Jesus Mones Insomnia G47.00 ; BP H (benign prostatic hyperplasia) N40.0 ; Dyslipidemia E78.5 and Acquired hypothyroidism E03.9 Assessments Encounter Date Diagnosis (ICD Code) Assessment [...] air for gradually more time each day 06/05/2025 Multiple myeloma (ICD-10 - C90.00) 06/05/2025 Orbital cellulitis, right (ICD-10 - H05.011) 06/07/2025 Cutaneous abscess of face (ICD-10 - L02.01) There appears to be an abscess forming under the bite rufus. Will switch abx and apply hot compresses. Will have patient f/u with Dr. Shea on Tuesday. If this worsens, he will go to the ER. 06/07/2025 Orbital cellulitis, right (ICD-10 - H05.011) 06/13/2025 Cutaneous abscess of face (ICD-10 - L02.01) 06/13/2025 Orbital cellulitis, right (ICD-10 - H05.011) 07/02/2025 Essential hypertension (ICD-10 - I10) 07/02/2025 Adult general medical examination (ICD-10 - Z00.00) Patient instructed to return to office Annually for Annual Wellness Visits to include annual screenings of Pain assessment, Functional Ability assessment, Cognitive Ability assessment, Fall Risk assessment, Depression screening and Bladder control screening. 07/29/2025 Insomnia (ICD-10 - G47.00) 07/29/2025 BPH (benign prostatic hyperplasia) (ICD-10 - N40.0) 07/02/2025 Dyslipidemia (ICD-10 - E78.5) 06/13/2025 BMI 26.0-26.9,adult (ICD-10 - Z68.26) 06/07/2025 BMI 27.0-27.9,adult (ICD-10 - Z68.27) 06/05/2025 BMI 26.0-26.9,adult (ICD-10 - Z68.26) 04/25/2025 Cardiomyopathy (ICD-10 - I42.9) 03/26/2025 Edema of both legs (ICD-10 - R60.0) will continue to monitor; no med changes; to keep cardiology appt 03/19/2025 ASCVD (arteriosclerotic cardiovascular disease) (ICD-10 - I25.10) [facility] with [facility] cardiology ; reviewed labs and ECHO 02/05/2025 Acquired hypothyroidism (ICD-10 - E03.9) 10/18/2024 Diabetes mellitus with neuropathy (ICD-10 - E11.40) 10/18/2024 Essential hypertension (ICD-10 - I10) 02/05/2025 Multiple myeloma (ICD-10 - C90.00) 03/19/2025 Cardiomyopathy (ICD-10 - I42.9) reviewed recent ECHO 03/26/2025 BMI 28.0-28.9,adult (ICD-10 - Z68.28) 04/25/2025 History of ASCVD (ICD-10 - Z86.79) 07/02/2025 Acquired hypothyroidism (ICD-10 - E03.9) 07/29/2025 Dyslipidemia (ICD-10 - E78.5) 07/02/2025 MGUS (monoclonal gammopathy of unknown significance) (ICD-10 - D47.2) 07/29/2025 Acquired hypothyroidism (ICD-10 - E03.9) 04/25/2025 BPH (benign prostatic hyperplasia) (ICD-10 - N40.0) 03/19/2025 MGUS (monoclonal gammopathy of unknown significance) (ICD-10 - D47.2) 02/05/2025 Diabetes mellitus with neuropathy (ICD-10 - E11.40) 10/18/2024 Acquired hypothyroidism (ICD-10 - E03.9) 10/18/2024 Dyslipidemia (ICD-10 - E78.5) 02/05/2025 Dyslipidemia (ICD-10 - E78.5) 03/19/2025 Multiple myeloma (ICD-10 - C90.00) follows with dr. Eason; currently on vacation from [place] 04/25/2025 Diabetes mellitus (ICD-10 - E11.9) 07/02/2025 Peripheral neuropathy (ICD-10 - G62.9) 07/02/2025 Multiple myeloma (ICD-10 - C90.00) 04/25/2025 Peripheral neuropathy (ICD-10 - G62.9) Instructed to wean by one half tabs daily per month 03/19/2025 PVD (peripheral vascular disease) (ICD-10 - I73.9) 02/05/2025 Essential hypertension (ICD-10 - I10) 10/18/2024 ASCVD (arteriosclerotic cardiovascular disease) (ICD-10 - I25.10) 10/18/2024 Hearing loss (ICD-10 - H91.90) 03/19/2025 Chronic atrial fibrillation (ICD-10 - I48.2) 02/05/2025 Cardiomyopathy (ICD-10 - I42.9) 04/25/2025 Multiple myeloma (ICD-10 - C90.00) 07/02/2025 Type 2 diabetes mellitus with other circulatory complication (ICD-10 - E11.59) 07/02/2025 Insomnia (ICD-10 - G47.00) 04/25/2025 BMI 25.0-25.9,adult (ICD-10 - Z68.25) 03/19/2025 Type 2 diabetes mellitus with other circulatory complication (ICD-10 - E11.59) 02/05/2025 BMI 25.0-25.9,adult (ICD-10 - Z68.25) 10/18/2024 Diabetes mellitus (ICD-10 - E11.9) 10/18/2024 Peripheral neuropathy (ICD-10 - G62.9) 03/19/[address] (ICD-10 - Z95.810) 07/02/2025 BMI 26.0-26.9,adult (ICD-10 - Z68.26) 10/18/2024 Elevated PSA (ICD-10 - R97.20) 03/19/2025 Septic arthritis of knee (ICD-10 - M00.9) continue to follow with Dr. De Souza 03/19/2025 BMI 27.0-27.9,adult (ICD-10 - Z68.27) 10/18/2024 Unsteady gait (ICD-10 - R26.81) 10/18/2024 Multiple myeloma (ICD-10 - C90.00) Continue ongoing follow-up with Dr. Eason 03/19/2025 BPH (benign prostatic hyperplasia) (ICD-10 - N40.0) 10/18/2024 Screening for prostate cancer (ICD-10 - Z12.5) 03/19/2025 Chronic atrial fibrillation (ICD-10 - I48.20) 02/05/2025 Other Discharge summary with available lab/diagnostic imaging results obtained and reviewed. Discharge medication list reconciled. Appropriate counseling provided. Moderate Complexity Plan Of Treatment Next Appt Details Provider Name:Nas Solis, 11/05/2025 09:15:00 AM, [address], [place], [place], [id number], Insurance Providers Payer Name Payer Address Payer Phone Subscriber Number Group Number Insured Name Patient Relationship to Insured Coverage Start Date Coverage End Date MEDICARE PART B [address] [address] JENNY Aranda [id number] KEV DICK Self - patient is the insured LAINE MELGOZA [address] [place] [address] [phone] [id number] KEV DICK Self - patient is the [...] Multiple myeloma - dx 2022 - Dr. Yumi Mcwilliams 12/2022 - Negative Surgical History Surgery Date(Month/Year) Coronary stents 03/08/2007 Open Heart Surgery-Dr Mott @ [facility] thoracentesis 12/2015 Laparoscopic cholecystectomy - Dr. Rolanda carballo 09/06/2016 cardiac defibirilltor placed-Dr Yates 07/04/2020 cataract surgery-right eye 12/2020 Knee Surgery - Due to Infection -02/17 25 Cardiac Pacemaker 04/24/2025 Hospitalization History Reason Date(Month/Year) [facility] UTC - Fall 11/14/2023 [facility]-tachy[facility] 07/02-12/2019 Left heart cath/[place]/ normal flow of revascularized vessels 02/2017 [facility] pancreatitis 09/02/2016 [facility] ER-Afib 01/2016 C-scope - Dr. Kimball 09/2013 [facility] ER-suture to pinky finger of left [place] 09/25/2009
--- OUTSIDE RECORDS SUMMARY | 2025-07-30 08:58 | XMS_ITS | Encounter Summary ---
Author Organization [place] [address] Care Team Providers Care Gym Instructor Name Role Phone Unavailable Primary Care Provider Unavailabl e Encounter Details Date Type Department Care Team (Late st Contact Info) Description 01/07/2023 Orders Only [facility] [place] [id number] Barbara Bess MD [address] [place] [phone] Social History Tobacco Use Types Packs/Day Years [...] Procedure Name Priority Date/Time Associated Diagnosis Comments [employer] STANDARD LEUKEMIA/LYMPHOMA PANEL Routine 01/07/2023 9:45 AM EST documented in this encounter Results * NEOGENOMICS STANDARD LEUKEMIA/LYMPHOMA PANEL (01/07/2023 9:45 AM EST) 01/07/2023 9:45 AM EST Narrative [facility] - 01/10/2023 3:22 PM EDT Requesting Provider: GIOVANNA Chaney Specimen = [id number] us Barbara Bess MD PATHOLOGY ORDERABLES Final Resul t Performing Organization Address City/State/[facility] Co de Phone Number [facility] [address] [place] [address] documented in this encounter Visit Diagnoses Not on filedocumented in this encounter
[2025-07-30] MEDS: DENOSUMAB 120MG/1.7ML VIAL 120 MG SUBCUT (09:06)
[2025-07-30 09:13] VITALS: BP 146/73; PULSE 76; RESP 18; O2SAT 100
[2025-07-30 09:13] LABS: Hematocrit 40.9 % (42.0-52.0); Hemoglobin 12.7 g/dL (14.1-18.0); Immature Granulocytes % 0.3 %; Mean Corpuscular HGB Conc 31.1 g/dL (31.8-35.4); Mean Corpuscular Hemoglobin 28.0 pg (27.0-31.2); Mean Corpuscular Volume 90.3 fl (80-94); Nucleated Red Blood Cells % 0 %; Platelet Count 126 K/mm3 (142-424); Red Blood Count 4.53 M/mm3 (4.60-6.20); Red Cell Distribution Width-SD 47.6 fL; White Blood Count 3.8 K/mm3 (4.8-10.8)
[2025-07-30 09:36] LABS: Alanine Aminotransferase 20 U/L (12-78); Albumin Level 4.4 g/dl (3.5-5.0); Albumin/Globulin Ratio 1.8 (1.1-1.8); Alkaline Phosphatase 75 U/L (38-126); Anion Gap 13.2 mEq/L (5-15); Aspartate Amino Transferase 22 U/L (17-59); Bilirubin,Total 0.7 mg/dl (0.2-1.3); Blood Urea Nitrogen 22 mg/dl (9-20); Calcium 9.8 mg/dl (8.4-10.2); Carbon Dioxide 29 mmol/L (22.0-30.0); Chloride 105 mmol/L (98-107); Creatinine,Serum 1.00 mg/dl (0.66-1.25); Estimated Glomerular Filt Rate 73 ml/min (>60); GFR (African American) 88 ML/MIN (>60); Globulin 2.4 g/dL (1.3-3.2); Glucose 124 mg/dl (74-100); Potassium 4.2 mmoL/L (3.5-5.1); Sodium 143 mmol/L (136-145); Total Protein,Serum 6.8 g/dl (6.3-8.2)
--- NOTE | 2025-07-30 09:40 | PC.NURSE ---
0900 Labs collected as ordered via venipuncture to R AC x1 stick with butterfly needle. Patient tolerated well. Patient has appointment with Dr. Yumi monroy awaqas
[2025-07-31 14:32] LABS: Albumin 4.1 g/dL (2.9-4.4); Alpha-1-Globulin 0.2 g/dL (0.0-0.4); Alpha-2-Globulin 0.7 g/dL (0.4-1.0); Gamma Globulin 1.1 g/dL (0.4-1.8)
[2025-08-01 12:23] LABS: Immunoglobulin A, Qn 84 mg/dL (61-437); Immunoglobulin G, Qn 1053 mg/dL (603-1613); Immunoglobulin M, Qn 54 mg/dL (15-143)
[2025-08-12 14:45] LABS: PDF SCANNED IMAGE
== END 2025-07-30 23:59 | disposition home or self-care (01) ==
PROVIDERS: PCP Family Medicine; Visit Provider Internal Medicine Medical Oncology
DX: C90.00 Multiple myeloma not having achieved remission (principal)
CPT/HCPCS: 36415; 80053; 82784; 83521; 84155; 84165; 85025; 86334; 96372; J0897

== ENCOUNTER 2025-08-30 16:00 | Outpatient (RCR) | payer MEDICARE, BC, SELFPAY ==
--- NOTE | 2025-08-05 11:52 | HMH.PTOPEV ---
PT Evaluation Rehab PT Outpatient Evaluation Start: 08/05/25 10:54 Freq: Status: Active Protocol: Document 08/05/25 10:54 JOANNAGAYATHRI (Rec: 08/05/25 11:48 SIMRAN [id number]) E-signed By Carl Pena, PT Outpatient Therapy Subjective History Subjective History Pt is a 75 yom who is referred to [facility] outpatient PT with complaints of bilateral knee pain. Pt reports that he had an arthroscopic R knee surgery in December of this year. He reports that after the surgery, he had intense swelling and had to go back into surgery shortly after. Pt reports that after the surgery he has not had much improvement at all. He reports that he has been very weak since the surgery. Pt reports that he recently has began to have similar pain and weakness around his L knee. Pt presents this date on a FWW and reports that he uses it all the time. Pt reports that he does have a cane but he does not believe that he is strong enough. Pt presents today with O2 Nasal Cannula (2L) and reports that he only uses it when he is up moving around. Pt reports that he has had approximately 3-4 falls in the past 6 months. Pt has an active diagnosis of Multiple Myeloma. He is currently off treatment due to good numbers but reports that he will be starting back soon. Pt reports that his is currently in a long-term and is currently on Hospice Care. PMH: Multiple Myeloma Decreased diffusion capacity of lung Other forms of dyspnea Respiratory failure with hypoxia Presence of combination internal cardiac defibrillator (ICD) and pacemaker Cataract GERD (gastroesophageal reflux disease) Hypothyroid Multiple myeloma Abnormal ankle brachial index (SARAY) Parkinson disease DM2 (diabetes mellitus, type 2) Chest pain CAD (coronary artery disease) Cardiomyopathy Bilateral leg pain PAD (peripheral artery disease) MIO (obstructive sleep apnea) Hyperlipidemia Hypertensive heart disease without heart failure Neuropathy New diagnosis of Yes cancer in past 12 months? Chief Complaint Pain Symptom Type Ache Symptoms Relieved By OTC Meds Symptoms Aggravated Standing,Walking,Lifting By Prior Functional None Limitations Current Functional Lifting,Housework,Standing,Squatting,Walking,Stairs Limitations Symptom Description Intermittent,Activity Dependent Level of pain today 5 (0-10) Pain scale - at its 0 best (0-10) Pain scale - at its 7 worst (0-10) Hip/Knee Eval Gait Observation General Gait Pattern Antalgic Gait,Shuffling Step Observation Assistive Device Assistive Devices Rolling / Wheeled Walker Palpation Tenderness bilateral Knee Palpation Tenderness Finding Knee Palpation 3/4 to anterior Bilateral knees Overall Comment MMT left Hip Flexion Strength 3+ Fair+ Grade Hip Abduction 3+ Fair+ Strength Grade Hip Adduction 3+ Fair+ Strength Grade Hip Extension 3+ Fair+ Strength Grade Knee Extension 4 Good Strength Grade Knee Flexion 4 Good Strength Grade right Hip Flexion Strength 3 Fair Grade Hip Abduction 3 Fair Strength Grade Hip Adduction 3 Fair Strength Grade Hip Extension 3 Fair Strength Grade Knee Extension 4- Good- Strength Grade Knee Flexion 4- Good- Strength Grade ROM bilateral Knee ROM Reason Not Within Functional Limits Measured Lower Extremity Functional Index Activities Today, do you or would you have any difficulty at all with: a.Any of your usual Extreme difficulty or unable to perform activity work, housework or school activities b. Your usual Extreme difficulty or unable to perform activity hobbies, recreational or sporting activities c. Getting into or Moderate difficulty out of the bath d. Walking between Moderate difficulty rooms e. Putting on your Quite a bit of difficulty shoes or socks f. Squatting Extreme difficulty or unable to perform activity g. Lifting an object Moderate difficulty , like a bag of groceries from the floor h. Performing light Moderate difficulty activities around your home i. Performing heavy Extreme difficulty or unable to perform activity activities around your home j. Getting into or Quite a bit of difficulty out of a car k. Walking 2 blocks Quite a bit of difficulty l. Walking a mile Extreme difficulty or unable to perform activity m. Going up or down Extreme difficulty or unable to perform activity 10 stairs (about 1 flight of stairs) n. Standing for 1 Extreme difficulty or unable to perform activity hour o. Sitting for 1 A little bit of difficulty hour p. Running on even Extreme difficulty or unable to perform activity ground q. Running on uneven Extreme difficulty or unable to perform activity ground r. Making sharp Extreme difficulty or unable to perform activity turns while running fast s. Hopping Extreme difficulty or unable to perform activity t. Rolling over in Moderate difficulty bed LEFI Score Lower Extremity 16 Functional Index Score Miscellaneous Dx PT Eval Objective Objective TUs 5xSTS: 36s Outpatient Therapy Assessment Impairments Problems/ Palpation Tenderness,Impaired Strength,Impaired Walking Impairmments ,Impaired Standing,Impaired Lifting,Impaired Household Care,Impaired Stair Climbing,Impaired Squatting, Impaired Balance,Subjective C/O Pain,Impaired Self Care /Self Management Prognosis Rehab Potential Fair Comment w HEP compliance Clinical Impression Consistent with Yes Diagnosis Consistent with b/l knee OA Additional details: Pt demonstrates impaired LE strength, TTP, impaired TUG time and impaired 5xSTS time. Pt is a high fall risk at this time. PT Patient Goals PT Patient Goals PT Short Term In 4 weeks: Patient Goals 1. Patient will improve LEFS score to 25/80 to demonstrate improved functional mobility and increased independence with ADLs. 2. Patient will improve strength of bilateral hip and knee complexes to 3+/5 globally to improve gait mechanics, improve static/dynamic balance and to decrease fall risk. 3. Patient will demonstrate improved balance by maintaining tandem stance for 30s with each foot placed forward, on an even surface, without upper extremity support to demonstrate a reduced fall risk. 4. Patient will report a 48 hour average pain of 4/10 on the numeric pain rating scale to demonstrate improvement in quality of life and increased functional capacity. 5. Patient will demonstrate increased step length and foot clearance during bilateral swing phases with a FWW or LRAD prn to demonstrate a decrease fall risk and improved community mobility. 6. Pt will demonstrate HEP compliance by completing prescribed HEP 4-5x/week. PT Firmware Architect Patient In 8 weeks: Goals 1. Patient will improve LEFS score to 34/80 to demonstrate improved functional mobility and increased independence with ADLs. 2. Patient will improve strength of bilateral hip and knee complexes to 4-4+/5 globally to improve gait mechanics, improve static/dynamic balance and to decrease fall risk. 3. Patient will demonstrate the ability to walk 150 ft with a SP cane in order to demonstrate improved functional mobility, decreased fall risk and improvements with community mobility. 4. Patient will demonstrate improved balance by performing tandem walking on a stable surface for 10 feet without loss of balance or needed recruiting assistant to demonstrate a reduced fall risk and improved community ambulation. 5. Patient will demonstrate improved balance by maintaining tandem stance for 30s with each foot placed forward, on an unstable surface, without upper extremity support to demonstrate a reduced fall risk. Outpatient Therapy Plan of Care Treatment Plan May Include Therapeutic Exercise Yes Including Home Exercise Program Manual Therapy Yes Techniques Neuromuscular Re- Yes education Therapeutic Yes Activities to Return to Previous Functional/Work Level Gait Training Yes Thermal Modalities Yes Electrical Yes Stimulation Iontophoresis Yes Massage Yes Manual Lymphatic Yes Drainage Eval/Re-Eval Yes Frequency Times per week 2 Duration Number of Weeks 8 Addendums This patient is a No candidate for social or vocational rehab ? Patient/Guardian Yes verbally acknowledges understanding of treatment program and consents to further treatment? Patient/Guardian Yes verbally acknowledges understanding of diagnosis, prognosis and goals for treatment? Eval Complexity PT Charges 51359 - High Complexity Shoulder/Elbow Eval Shoulder Objective Measurements Elbow Objective Measurements PHYSICIAN CERTIFICATION: I certify the specified therapy services for Kaleb Swan are required, authorized, and reviewed every 30 days.
== END 2025-08-30 23:59 | disposition home or self-care (01) ==
LOC: PT 16:00
PROVIDERS: PCP Family Medicine; Visit Provider Orthopaedic Surgery
DX: M25.562 Pain in left knee (principal); M25.561 Pain in right knee
CPT/HCPCS: 97110; 97112; 97163; 97530

== ENCOUNTER 2025-09-10 08:35 | Outpatient (CLI) | payer MEDICARE, BC, SELFPAY ==
--- OUTSIDE RECORDS SUMMARY | 2025-01-21 11:00 | XMS_ITS ---
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 Name Role Phone Nas Shea Primary Care Provider Jessie Velez Unavailable [phone] Allergies No Known Allergies REASON FOR VISIT wounds on legs from fall Medications Medication SIG (Take, Route, Frequency, Duration) Notes Start Date End Date Status Jardiance 10 MG 1 tab(s) orally once a day (in the morning) Active Amitriptyline HCl 50 MG 1.5 tab(s) orall y once a day (at bedtime); Duration: 30 Active Xarelto 2.5 mg TAKE ONE TABLET BY M OUTH TWICE DAILY; Duration: 90 Active Atorvastatin Calcium 40 MG 1 tab(s) oral ly once a day (at bedtime) Active Levothyroxine Sodium 75 MCG 1 tab(s) ora lly once a day Active Omeprazole 40 mg TAKE ONE CAPSULE BY MOUTH EVERY DAY; Duration: 90 Active Bisoprolol Fumarate 5 MG 1 tab(s) orally once a day Active Xarelto 20 MG 1 tablet with food Orally Once a day; Duration: 30 day(s) 10/19/2024 Active hydroCHLOROthiazide 25 MG 1 tab(s) orall y once a day; Duration: 90 days Active Losartan Potassium 100 MG 1 tab(s) orall y once a day Active Levothyroxine Sodium 75 mcg TAKE ONE TAB LET BY MOUTH EVERY DAY; Duration: 90 Active Tamsulosin HCl 0.4 mg TAKE ONE CAPSULE B Y MOUTH EVERY DAY; Duration: 90 Active Pregabalin 50 MG 1 capsule Or[address] Thr ee times a day Active Jardiance 10 mg TAKE ONE TABLET BY M OUTH EVERY DAY IN THE MORNING; Duration: 90 Active hydroCHLOROthiazide 25 MG 1 tab(s) orall y once a day; Duration: 90 days Active Atorvastatin Calcium 40 mg TAKE ONE TABL ET BY MOUTH EVERY DAY AT BEDTIME; Duration: 90 Active Bisoprolol Fumarate 5 MG 1 tab(s) orally once a day; Duration: 90 days Active Vital Signs Blood pressure systolic 110 mm Hg 01/22/20 25 Blood pressure diastolic 80 mm Hg 025 Heart Rate 76 /min 01/21/2025 Height 72 in 01/21/2025 Weight 000 lbs 01/21/2025 Encounters Encounter Location Date Provider Diagnosis [facility] [address] [facility] [address] [facility] [address] [place] [id number] 01/21/2025 Jessiejose antonio Vleez Septic arthritis of knee M00.9 and Abrasions of multiple sites T07.XXXA Assessments Encounter Date Diagnosis (ICD Code) Assessment Notes Treatment Notes Treatment Clinical Notes Section Notes 01/21/2025 Septic arthritis of knee (ICD-10 - M00.9) I did speak with Dr. De Souza; their office is closed ; he did direct me to instruct the pt to call his office in the AM for time for FU tomorrow which pr will do 01/21/2025 Abrasions of multiple sites (ICD-10 - T07.XXXA) to keep clear adhesive dressing on until washes off ; to keep on greer cover atop Plan Of Treatment Treatment Notes Assessment Notes Septic arthritis of knee I did speak wit h Dr. De Souza; their office is closed ; he did direct me to instruct the pt to call his office in the AM for time for FU tomorrow which pr will do Abrasions of multiple sites to keep amena r adhesive dressing on until washes off ; to keep on greer cover atop Next Appt Details Follow Up: prn, Reason: Provider Name:Nas Solis, 11/05/2025 09:15:00 AM, [address] [facility], [address], [place], [phone], Progress Notes * ANGIE DICKOB: 0 (75 yo M)Acc No.[id number]:01/21/2025 Progress Notes Patient: KVE LUZ Provider: GABRIELLE Sanders :1950 A ge:74 Y S ex:Male Date:01/21/2025 Address:[address] [place] [address] [place] DEE YAM[place] , [place], [id number] Pcp:Nas Shea Subjective: * Chief Complaints: * 1 . Wounds on legs from fall. * HPI: D ermatology: 74 year old male presents with c/o Swelling P t son sts his right knee is vcery swollen and sore. Pt sts he has had trouble with this knee for 3 weeks or longer, and sts he did see a doctor to get it emptied, but sts he got no relief from that. Pt would also like his left arm looked at as well. S houlder/Upper arm: c/o fall. pt fell last week and injured the left arm; was seen at [facility]; was also seen by Dr. De Souza at this time. Subjective *Date: 01/16/25 *Time: 10:34 Interval history: 74-year-old male presented for preop for planned arthroscopic debridement of right knee. This morning he suffered a fall at his house near his bed and dresser does not believe he lost consciousness however his friend found him down he hit his head left ribs and had skin tears on his forearm. He was presenting for left knee arthroscopic debridement following aspiration in the clinic yesterday. Ortho Exam (Inpt) Comment:: Right knee: No redness erythema or streaking. Significant decrease of the amount effusion present compared to yesterday. He is able to extend his knee with minimal discomfort to the medial joint line and anterior knee. Ortho Exam (Inpt) Comment:: Right knee: No redness erythema or streaking. Significant decrease of the amount effusion present compared to yesterday. He is able to extend his knee with minimal discomfort to the medial joint line and anterior knee. Assessment and Plan *Assessment and plan (1) Effusion of knee joint right: Status: Acute Category: Medical Code(s): M25.461 - Effusion, right knee Plan Patient had preoperative echocardiogram ordered and performed this morning for surgical clearance per anesthesia request. The pulmonary report showed decreased ejection fraction. Patient has a complicated cardiac history with history of CABG coronary artery disease. The clinical picture with the effusion is significantly better today. Aspiration was performed sent to the lab [facility] the total white count of nucleated cells 75,000 per high-power field however red blood cell count was 45,500. Crystals were present in the previous aspiration and this aspiration calcium pyrophosphate versus steroid crystals. Because of the fall he was sent to the emergency room for evaluation surgery canceled for today the clinical picture of his knee significantly improved. Interestingly the only thing that has grown initially was in the potential contaminant with Staph epidermidis with initial aspiration versus infection. He had a previous cleanout that fluid however did not grow bacteria after 5 days of growth and Gram stain was negative. Gram stain also negative of aspiration yesterday for pathogens. Cultures pending. Surgery canceled for today cardiac workup complete cardiac visit pending patient sent to the emergency room for evaluation after hitting his head and ribs and lacerating his arm. He will have close clinical follow-up we did change his antibiotics yesterday we will continue to follow for any growth on culture make clinical decision in regards to irrigation debridement based on clinical picture. Famil did call Dr. Darden office today and have not heard back; pt states the pain is severe and he can barely walk at home to the bathroom with his waker. he has taken Tylenol which has helped a little . * ROS: D ERMATOLOGY: no R jean marie. n o H sally. G ASTROENTEROLOGY: no N ausea. n o V omiting. n o D iarrhea.? U ROLOGY: no D ifficulty urinating. n o B lood in urine. * Medical History: H ypertension, ASCVD, HLP, Hearing aids, Declines Prevnar 05/2016, 12/2016, Atrial Fib - converted - 01/2016, Gallstone pancreatitis - 08/2016, Peripheral neuropathy, MGUS - monoclonal gammopathy of undetermined significance/ Dr. Parker, Elevated PSA 4.3 (09/2019), Type 2 diabetes, Normal CTA of lower extremities 02/[address] Malik, Multiple myeloma - dx 2022 - Dr. Eason. * Surgical History: C oronary stents 03/08/07, Open Heart Surgery-Dr Mott @ [facility] 12/2015, thoracentesis 12/2015, Laparoscopic cholecystectomy - Dr. Wallace 09/06/16, cardiac defibirilltor placed-Dr Yates 07/04/2020, cataract surgery-right eye 12/2020. * Hospitalization/Major Diagno stic Procedure: H ER-suture to pinky finger of left hand 09/25/09, C-scope - Dr. Kimball 09/2013, [facility]-Afib 01/2016, [facility]-Gallstone pancreatitis 09/02/16, Left heart cath/[place]/ normal flow of revascularized vessels 02/2017, [facility]-tachycardia 07/02 to 07/03/2020, [facility] UTC - Fall 11/14/2023. * Family History: F ather: , emphysema. M other: , diabetes, heart disease. 1 brother(s) - healthy. . * Social History: C URRENT TOBACCO USE S moking Status: Patient does NOT smoke. C affeine: yes, frequency:. Marital Status: . Past smoking status: no. Alcohol: no. * Medications: T aking Bisoprolol Fumarate 5 MG Tablet 1 tab(s) orally once a day , Taking hydroCHLOROthiazide 25 MG Tablet 1 tab(s) orally once a day , Taking Losartan Potassium 100 MG Tablet 1 tab(s) orally once a day , Taking Atorvastatin Calcium 40 MG Tablet 1 tab(s) orally once a day (at bedtime) , Taking Levothyroxine Sodium 75 MCG Tablet 1 tab(s) orally once a day , Taking Jardiance 10 MG Tablet 1 tab(s) orally once a day (in the morning) , Taking Amitriptyline HCl 50 MG Tablet 1.5 tab(s) orally once a day (at bedtime) , Taking Xarelto 2.5 mg Tablet TAKE ONE TABLET BY MOUTH TWICE DAILY , Taking Atorvastatin Calcium 40 mg Tablet TAKE ONE TABLET BY MOUTH EVERY DAY AT BEDTIME , Taking Bisoprolol Fumarate 5 MG Tablet 1 tab(s) orally once a day , Taking Levothyroxine Sodium 75 mcg Tablet TAKE ONE TABLET BY MOUTH EVERY DAY , Taking Tamsulosin HCl 0.4 mg Capsule TAKE ONE CAPSULE BY MOUTH EVERY DAY , Taking Jardiance 10 mg Tablet TAKE ONE TABLET BY MOUTH EVERY DAY IN THE MORNING , Taking hydroCHLOROthiazide 25 MG Tablet 1 tab(s) orally once a day , Taking Pregabalin 50 MG Capsule 1 capsule Orally Three times a day , Taking Xarelto 20 MG Tablet 1 tablet with food Orally Once a day , Taking Omeprazole 40 mg Capsule Delayed Release TAKE ONE CAPSULE BY MOUTH EVERY DAY , Medication List reviewed and reconciled with the patient * Allergies: N .K.D.A. Objective: * Vitals: W t: 000, Temp: 97.7, BP: 110/80, HR: 76, Nurse: reynaldo, Ht: 72. * Examination: G eneral Examination: General Appearance: NAD, alert, pleasant; presents in wheelchair with family. H eart: RRR. L ungs: CTAB A&P. N eurologic Exam:? alert and oriented. S kin: left forearm from elbow to wrist with multiple abrasions covered with clear dressings n then Greer; eccmosis; no edema. E xtremities: right knee with edema and tender to palpation; no erythema. Assessment: * Assessment: 1. S eptic arthritis of knee - M00.9 (Primary) 2 . A brasions of multiple sites - T07.XXXA S pecify :left forerm Plan: * Treatment: 2. A brasions of multiple sites Notes: to keep clear adhesive dressing on until washes off ; to keep on greer cover atop * Procedure Codes: G 2211 Complex e/m visit add on, 3074F SYST BP LT 130 MM HG, 3079F DIAST BP 80-89 MM HG * Follow Up: p rn * Images: Billing Information: * Visit Code: 82689 Office Visit, Est Pt., Level 4. * Procedure Codes: G2211 Complex e/m visit add on. 3074F SYST BP LT 130 MM HG. 3079F DIAST BP 80-89 MM HG. * Electronic signature of Dahlia Velez APRN on 09/10/2025 at 08:40 AM EST Sign off status: Pending * Provider: GABRIELLE Sanders Date: 0 01/21/2025 Generated for Galilea lozano/Ken/Lynn on: 11/10/2024 08:40 AM EST History and Physical Notes * HPI (History of Present Illness) Category Sub-Category Detail Notes Category Not es Dermatology Swelling Pt son sts his r ight knee is vcery swollen and sore. Pt sts he has had trouble with this knee for 3 weeks or longer, and sts he did see a doctor to get it emptied, but sts he got no relief from that. Pt would also like his left arm looked at as well Shoulder/Upper arm fall pt fell last week and injured the left arm; was seen at [facility]; was also seen by Dr. De Souza at this time. Subjective *Date: 01/16/25 *Time: 10:34 Interval history: 74-year-old male presented for preop for planned arthroscopic debridement of right knee. This morning he suffered a fall at his house near his bed and dresser does not believe he lost consciousness however his friend found him down he hit his head left ribs and had skin tears on his forearm. He was presenting for left knee arthroscopic debridement following aspiration in the clinic yesterday. Ortho Exam (Inpt) Comment:: Right knee: No redness erythema or streaking. Significant decrease of the amount effusion present compared to yesterday. He is able to extend his knee with minimal discomfort to the medial joint line and anterior knee. Ortho Exam (Inpt) Comment:: Right knee: No redness erythema or streaking. Significant decrease of the amount effusion present compared to yesterday. He is able to extend his knee with minimal discomfort to the medial joint line and anterior knee. Assessment and Plan *Assessment and plan (1) Effusion of knee joint right: Status: Acute Category: Medical Code(s): M25.461 - Effusion, right knee Plan Patient had preoperative echocardiogram ordered and performed this morning for surgical clearance per anesthesia request. The pulmonary report showed decreased ejection fraction. Patient has a complicated cardiac history with history of CABG coronary artery disease. The clinical picture with the effusion is significantly better today. Aspiration was performed sent to the lab [facility] the total white count of nucleated cells 75,000 per high-power field however red blood cell count was 45,500. Crystals were present in the previous aspiration and this aspiration calcium pyrophosphate versus steroid crystals. Because of the fall he was sent to the emergency room for evaluation surgery canceled for today the clinical picture of his knee significantly improved. Interestingly the only thing that has grown initially was in the potential contaminant with Staph epidermidis with initial aspiration versus infection. He had a previous cleanout that fluid however did not grow bacteria after 5 days of growth and Gram stain was negative. Gram stain also negative of aspiration yesterday for pathogens. Cultures pending. Surgery canceled for today cardiac workup complete cardiac visit pending patient sent to the emergency room for evaluation after hitting his head and ribs and lacerating his arm. He will have close clinical follow-up we did change his antibiotics yesterday we will continue to follow for any growth on culture make clinical decision in regards to irrigation debridement based on clinical picture. Famil did call Dr. Darden office today and have not heard back; pt states the pain is severe and he can barely walk at home to the bathroom with his waker. he has taken Tylenol which has helped a little Examination Category Sub-Category Detail Notes Category Not es General Examination Heart: RRR Lungs: CTAB A&P Extremities: right knee with miryam a and tender to palpation; no erythema General Appearance: NAD, alert, pleasant ; presents in wheelchair with family Skin: left forearm from el bow to wrist with multiple abrasions covered with clear dressings n then Greer; eccmosis; no edema Neurologic Exam: alert and oriented
--- OUTSIDE RECORDS SUMMARY | 2025-02-05 04:00 | XMS_ITS ---
Author Organization [facility] Address [address] [place], [place] [phone] Care Team Providers Care Service Director Name Role Phone Nas Shea Primary Care Provider Allergies No Known Allergies Results Component Value Reference Range Notes P-Hemoglobin A1C Reviewed date:02/07/2025 08:17:27 AM Interpretation: Performing Lab: Notes/Report: CLIA: [id number] Renato Cobb MD, Major Sales Associate [address] [place] [address] , [place] [address] Test performed by [employer] Hemoglobin A1C 6.9 <5.7 % The following HbA1c ranges recommended by the [place] Diabetes Association (ADA) may be used as an aid in the diagnosis of diabetes mellitus. HbA1c Suggested Diagnosis >=6.5% Diabetic 5.7% - 6.4% Pre-Diabetic <5.7% Non-Diabetic P-TSH Reviewed date:02/07/2025 08:17:27 AM Interpretation: Performing Lab: Notes/Report: Test performed by [employer] [address] [place], [place] [address] , [place] [address] Renato Cobb MD, Major Sales Associate CLIA: [id number] TSH 2.88 0.43-5.25 mU/L Estimated Average Glucose Reviewed date:02/07/2025 08:17:27 AM Interpretation: Performing Lab: Notes/Report: Test performed by [employer] [address] [place] [address] , [address], [place] [address] Renato Cobb MD, Major Sales Associate CLIA: [id number] Estimated Average Glucose (eAG) 151 Estimated Average Glucose (eAG) is calculated using the equation eAG = (28.7 x HbA1c) - 46.7 based on the guidelines established by the ADA. If the patient has certain diseases including kidney disease, sickle cell anemia, thalassemia, or is taking medications such as dapsone, erythropoietin, or iron, eAG should not be evaluated. REASON FOR VISIT F/U from [facility] Medications Medication SIG (Take, Route, Frequency, [...] y once a day Active Vital Signs Blood pressure systolic 112 mm Hg 02/06/20 25 Blood pressure diastolic 74 mm Hg 025 Height 72 in 02/05/2025 Weight 189.6 lbs 02/05/2025 BMI 25.71 kg/m2 02/05/2025 Encounters Encounter Location Date Provider Diagnosis [facility] [address] [phone] 02/05/2025 Nas Shea Type 2 diabetes donnie [...] Name:Nas Solis, 11/05/2025 09:15:00 AM, [address] [facility] 36 [facility], [address] [place] [address], [phone], Progress Notes * ANGIE SWANOB: 0 (75 yo M)Acc No.[id number]:02/05/2025 Progress Notes Patient: Henry KEV CHEUNG Provider: Nas Shea M.D. :1950 A ge:74 Y S ex:Male Date:02/05/2025 Address:[address] [place] [address], [id number] Subjective: * Chief Complaints: * 1 . F/U from [facility]. * HPI: H PI: Patient is here today for a Transition of Care Visit. Discharge from the following Facility: Gladis [facility] , Discharge date: ,Date of phone contact following discharge: 01/04/2025. Gladis bowden was admitted to for definitive treatment of septic arthritis of [...] stents 03/08/07, Open Heart Surgery-Dr Mott @ [facility] 12/2015, thoracentesis 12/2015, Laparoscopic cholecystectomy - Dr. Wallace 09/06/16, cardiac defibirilltor placed-Dr Yates 07/04/2020, cataract surgery-right eye 12/2020. * Hospitalization/Major Diagno stic Procedure: H ER-suture to pinky finger of left hand 09/25/09, C-scope - Dr. Kimball 09/2013, [facility] ER-Afib 01/2016, [facility] pancreatitis 09/02/16, Left heart cath/[place]/ normal flow of revascularized vessels 02/2017, [facility]-tachycardia 9/2 to 07/03/2020, [facility] - Fall 11/14/2023. * Family History: F [...] . C ardiomyopathy - I42.9 ?9. B CT 25.0-25.9,adult - Z68.25 Plan: * Treatment: Value [...] stimated Average Glucose 151 - mg/dL * [facility], IT support 02/06/2025 05:30:07 : This order [...] * Images: Billing Information: * Visit Code: 16527 Office Visit, Est Pt., Level 3. * Procedure Codes: 46758 TRANS CARE MGMT 14 DAY DISCH. 1111F DSCHR MED/CURENT MED MERGE. G2211 Complex e/m visit add on. 3044F HG A1C LEVEL LT 7.0%. G8752 MOST RECENT SYSTOLIC BP < 140MM HG. G8754 MOST RECENT DIASTOLIC BP < 90MM HG. * Electronic signature of Nas Shea MD on 09/10/2025 at 08:39 AM EST Sign off status: Pending * Provider: Nas Shea M.D. Date: 0 02/05/2025 Generated for Galilea lozano/Ken/Stevenitting on: 1 11/10/2024 08:39 AM EST History and Physical Notes * HPI (History of Present Illness) Category Sub-Category Detail Notes Category Not es HPI Patient is here today for a [facility] sition of Care Visit. Discharge from the following Facility: ,Discharge date: 01/03/2025 ,Date of phone contact following discharge: 01/04/2025. He was admitted to for definitive treatment of septic arthritis of [...]
--- OUTSIDE RECORDS SUMMARY | 2025-03-19 09:00 | XMS_ITS ---
Author Organization [facility] Address [address] [id number] Care Team Providers Care Maintenance Of Way Superintendent Name Role Phone Nas Shea Primary Care Provider [phone] Jessie Velez Unavailable [phone] Allergies No Known Allergies REASON FOR VISIT ankle swelling, short of breath, low BP Medications Medication SIG (Take, Route, Frequency, Duration) Notes Start Date End Date Status Jardiance 10 MG 1 tab(s) orally once a day (in the morning) Active Pregabalin 50 MG 1 capsule Orally Thr ee times a day Active Amitriptyline HCl 50 MG 1.5 tab(s) orall y once a day (at bedtime); Duration: 30 Active Omeprazole 40 mg TAKE ONE CAPSULE BY MOUTH EVERY DAY; Duration: 90 Active Levothyroxine Sodium 75 MCG 1 tab(s) ora lly once a day Active hydroCHLOROthiazide 25 MG 1 tab(s) orall y As needed; Duration: 90 days Active Atorvastatin Calcium 40 MG 1 tab(s) oral ly once a day (at bedtime) Active Xarelto 20 MG 1 tablet with food Orally Once a day 10/19/2024 Active Tamsulosin HCl 0.4 mg TAKE ONE CAPSULE B Y MOUTH EVERY DAY Active Aspirin 81 81 MG 1 tablet Orally Once a day Active Furosemide 20 MG 1 tablet Orally Once a day; Duration: 3 days Active Bisoprolol Fumarate 5 MG 1 tab(s) orally once a day Active Problems Problem Type SNOMED Code ICD Code Onset Dates Problem Status W/U Status Risk Notes Problem Benign prostatic hyperplasia (400300021) BPH (benign prostatic hyperplasia) (N40.0) Active confirmed Problem Chronic atrial fibrillation (417428546) Chronic atrial fibrillation (I48.20) Active confirmed Vital Signs Blood pressure systolic 104 mm Hg 03/19/20 25 Blood pressure diastolic 70 mm Hg 025 Heart Rate 82 /min 03/19/2025 Height 72 in 03/19/2025 Weight 201.2 lbs 03/19/2025 BMI 27.28 kg/m2 03/19/2025 Encounters Encounter Location Date Provider Diagnosis [facility] [address] [place], [place] [id number] 03/19/2025 Jessie Velez Edema leg R60.0 ; Hypotension I95.9 ; ASCVD (arteriosclerotic cardiovascular disease) I25.10 ; Cardiomyopathy I42.9 ; MGUS (monoclonal gammopathy of unknown significance) D47.2 ; Multiple myeloma C90.00 ; PVD (peripheral vascular disease) I73.9 ; Chronic atrial fibrillation I48.2 ; 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.59 ; Cardiac defibrillator in place Z95.810 ; Septic arthritis of knee M00.9 ; BMI 27.0-27.9,adult Z68.27 ; BPH (benign prostatic hyperplasia) N40.0 and Chronic atrial fibrillation I48.20 Assessments Encounter Date Diagnosis (ICD Code) Assessment Notes Treatment Notes Treatment Clinical Notes Section Notes 03/19/2025 Edema leg (ICD-10 - R60.0) family notes that he has gained about 9# within the last week; after confering with Carlos GONZALEZ cardiology, pt will take 3 days of Lasix while monitoring BP and taking care with ambulation 03/19/2025 Hypotension (ICD-10 - I95.9) will continue to monitor BP; care with ambulation; continues to use walker with ambulation 03/19/2025 ASCVD (arteriosclerotic cardiovascular disease) (ICD-10 - I25.10) discussed with Carlos Dhillon cardiology ; reviewed labs and ECHO 03/19/2025 Cardiomyopathy (ICD-10 - I42.9) reviewed recent ECHO 03/19/2025 MGUS (monoclonal gammopathy of unknown significance) (ICD-10 - D47.2) 03/19/2025 Multiple myeloma (ICD-10 - C90.00) follows with dr. Eason; currently on vacation from [place] 03/19/2025 PVD (peripheral vascular disease) (ICD-10 - I73.9) 03/19/2025 Chronic atrial fibrillation (ICD-10 - I48.2) 03/19/2025 Type 2 diabetes mellitus with other circulatory complication (ICD-10 - E11.59) 03/19/[address] (ICD-10 - Z95.810) 03/19/2025 Septic arthritis of knee (ICD-10 - M00.9) continue to follow with Dr. Mcdonald 03/19/2025 BMI 27.0-27.9,adult (ICD-10 - Z68.27) 03/19/2025 BPH (benign prostatic hyperplasia) (ICD-10 - N40.0) 03/19/2025 Chronic atrial fibrillation (ICD-10 - I48.20) Plan Of Treatment Medication Medication Name Sig Start Date Stop Date Notes Xarelto 20 MG 1 tablet with food O rally Once a day 10/19/2024 Tamsulosin HCl 0.4 mg TAKE ONE CAPSULE B Y MOUTH EVERY DAY Furosemide 20 MG 1 tablet Orally Once a day; Duration: 3 days Bisoprolol Fumarate 5 MG 1 tab(s) orally once a day Treatment Notes Assessment Notes Edema leg family notes that he has gained about 9# within the last week; after confering with Carlos Dhillon [place] cardiology, pt will take 3 days of Lasix while monitoring BP and taking care with ambulation Hypotension will continue to mon itor BP; care with ambulation; continues to use walker with ambulation ASCVD (arteriosclerotic card iovascular disease) discussed with Carlos Dhillon cardiology ; reviewed labs and ECHO Cardiomyopathy reviewed recent ECHO Multiple myeloma follows with dr. Jeevan rangel; currently on vacation from [place] Septic arthritis of knee continue to fol low with Dr. Mcdonald Next Appt Details Follow Up: 03/26/2025, Reason : Provider Name:Nas Solis, 11/05/2025 09:15:00 AM, [address], [address] , [place], [place], [id number], Progress Notes * ANGIE DICKOB: 0 (75 yo M)Acc No.[id number]:03/19/2025 Progress Notes Patient: Henry KEV CHEUNG Provider: GABRIELLE Sanders :1950 A ge:74 Y S ex:Male Date:03/19/2025 Address:[address] [place] [address], [id number] Pcp:Nas Shea Subjective: * Chief Complaints: * 1 . ankle swelling, short of breath, low BP. * HPI: C ardiology: discussed pt with Carlos GONZALEZ, cardiology who saw him last week; He discontinued HCTZ due to low BP; he reviesed cardic rhythms and pt had tach end of this December and needs the Bisoprolol. 74 year old male presents with c/o Leg Edema P t presents today with c/o swelling in the right leg and ankle. Pt did have recent knee surgery on the right knee. Pt sts that it was about 6-8 weeks ago. Pt sts that he is more fatigued that usual. Pt sts that his HCTZ was switched to PRN. Pt sts that he is feeling more short of breath than usual as well. c/o Hypotension. * ROS: R ESPIRATORY: Shortness of breath y es. n o C hest pain. n o?Chest congestion. n o C ough. C ARDIOLOGY: Positive for c ardiology visit 03/14/2025 notes as follows: Plan Details Active Problems Reviewed?: Yes Additional Comments: Patient here for 6 mo fu PT wt. down 14 lb Denies chest pain and pressure SOB with activity Denies Dizziness and lightheadedness swelling rt knee numbness feet fatigue CAD-stable. Medical mgt 2019. Hx CABG On aspirin and statin Normal BiV function with tethered and calcified posterior MV leaflet, mild MR mild OH. 04/2023 HTN- BP low today Multiple myeloma- followed by Dr. Eason. HLD LDL 34, (2022). On statin. Managed by PCP. EVELIA- LIBBY 20-49%, LICA less than 20%.(2020) PAD Medical management (MAY 2024) Hx of polymorphic VT /sp AICD AICD is present and stable D/L in 02/04/2025 Hx of PAF On xarelto afib w/ v pacing noted today, rate controlled DM2, A1C 6.2% (05/2023)-managed by pcp He is being followed for neuropathy. Parkinson, new diagnosis. MIO is present, but pt refuse C pap. Managed by PCP. Still dealing with an infection in his right knee- called Dr. Mcdonald's office- they will see pt today Also dealing with his and her brain tumor. She had a lobotomy and it has completely changed her behavior- very upsetting and hard on patient Plan: Routine labs today Only take HCTZ as needed for edema or SOB- hypotension Pt to see Dr. mcdonald today at 11 about his knee infection and pain RTC in 3 months 01/16/2025 ECHO results Conclusion Moderate reduction in LV systolic function (LVEF 35-40%). Mild RV dilation with mild reduction in RV function. Biatrial dilation. Mild to moderate TR. 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 RVSP 30-35 mmHg. . n o D izziness. n o C hest pain. n o P alpitations. L eg edema y es, e specially in the right leg. S hortness of breath y es. D ERMATOLOGY: no R jean marie. n o H sally. G ASTROENTEROLOGY: no N ausea. n o V omiting. n o D iarrhea.? M USCULOSKELETAL: Joint pain y es, r ight knee pain; he was unable to bear weight on the knee but can a little now; he saw Dr. Mcdonald last week and MRI is planned in [place] ; the knee remains swollen and TTP but is thought to be better. J oint swelling y es, r ight knee. P SYCHOLOGY: Depression y es, h is is in skilled facility for rehab after surgery to remove a malignant brain tumor; a friend is assisting him with his care. ? U ROLOGY: no D ifficulty urinating. n [...] stents 03/08/07, Open Heart Surgery-Dr Mott @ [facility] 12/2015, thoracentesis 12/2015, Laparoscopic cholecystectomy - Dr. Wallace 09/06/16, cardiac defibirilltor placed-Dr Yates 07/04/2020, cataract surgery-right eye 12/2020, Knee Surgery - Due to Infection -01/2025. * Hospitalization/Major Diagno stic Procedure: H ER-suture to pinky finger of left hand 09/25/09, C-scope - Dr. Kimball 09/2013, [facility] ER-Afib 01/2016, [facility] pancreatitis 09/02/16, Left heart cath/[place]/ normal flow of revascularized vessels 02/2017, [facility]-tachycardia 07/02 to 07/03/2020, [facility] UTC - Fall 11/14/2023. * Family History: F ather: , emphysema. M other: , diabetes, heart disease. 1 brother(s) - healthy. . * Social History: C URRENT TOBACCO USE S moking Status: Patient does NOT smoke. C affeine: yes, frequency:. Marital Status: . Past smoking status: no. Alcohol: no. * Medications: T aking Aspirin 81 81 MG Tablet Delayed Release 1 tablet Orally Once a day , Taking Bisoprolol Fumarate 5 MG Tablet 1 tab(s) orally once a day , Taking hydroCHLOROthiazide 25 MG Tablet 1 tab(s) orally As needed , Taking Atorvastatin Calcium 40 MG Tablet 1 tab(s) orally once a day (at bedtime) , Taking Jardiance 10 MG Tablet 1 tab(s) orally once a day (in the morning) , Taking Amitriptyline HCl 50 MG Tablet 1.5 tab(s) orally once a day (at bedtime) , Taking Pregabalin 50 MG Capsule 1 capsule Orally Three times a day , Taking Xarelto 20 MG Tablet 1 tablet with food Orally Once a day , Taking Omeprazole 40 mg Capsule Delayed Release TAKE ONE CAPSULE BY MOUTH EVERY DAY , Taking Tamsulosin HCl 0.4 mg Capsule TAKE ONE CAPSULE BY MOUTH EVERY DAY , Taking Levothyroxine Sodium 75 MCG Tablet 1 tab(s) orally once a day , Discontinued Losartan Potassium 100 MG Tablet 1 tab(s) orally once a day , Medication List reviewed and reconciled with the patient * Allergies: N .K.D.A. Objective: * Vitals: W t: 201.2, Temp: 97.5, BP: 104/70, HR: 82, O2 Sat: 99% on RA, Nurse: FATOUMATA, Ht: 72, BMI:27.28. * Examination: G eneral Examination: General Appearance: N AD , alert , pleasant , well nourished and hydrated. H eart: i rregular rhythm. L ungs: C TAB A&P. N eurologic Exam: a lert and oriented. E xtremities: m inimal left leg edema; edema of the right leg from knee down. O rthostatic BP standing 86/60 and 96/64; sitting 90/60 and 86/60. L ABS: date of labs . C reatinine 1 . B UN?38. S odium 1 40. P otassium 4 .2. c hloride 1 03. C O2 2 7.?glucose 1 50. c alcium 9 .7. C BC-hgb/hct/wbc 1 4.2/43.8/5.5; plt 889528. T otal Cholesterol 9 5. T riglyceride 1 13. L DL 4 6.76. H DL 3 1. T SH 3 .80. S GOT/SGPT 2 11/16. a lk phos 8 1. t otal bilirubin 0 .7. a lbumin 5 . m agnesium 1 .9. G FR 73. Assessment: * Assessment: 1. E pia leg - R60.0 (Primary) 2 . H ypotension - I95.9 3 . A SCVD (arteriosclerotic cardiovascular disease) - I25.10 4 . C ardiomyopathy - I42.9 5 . M DWAIN (monoclonal gammopathy of unknown significance) - D47.2 6. M ultiple myeloma - C90.00 7 . P VD (peripheral vascular disease) - I73.9 8 . C hronic atrial fibrillation - I48.2 9 .?Type 2 diabetes mellitus with other circulatory complication - E11.59 1 0. C ardiac defibrillator in place - Z95.810 1 1. S eptic arthritis of knee - M00.9? 12. B OH 27.0-27.9,adult - Z68.27 1 3. B PH (benign prostatic hyperplasia) - N40.0 1 4. C hronic atrial fibrillation - I48.20 ? Plan: * Treatment: 2. H ypotension Notes: will continue to monitor BP; care with ambulation; continues to use walker with ambulation? 3. A SCVD (arteriosclerotic cardiovascular disease) Notes: discussed with [facility] cardiology ; reviewed labs and ECHO 4. C ardiomyopathy Notes: reviewed recent ECHO 5. M ultiple myeloma Notes: follows with dr. Eason; currently on vacation from [employer] 6. C hronic atrial fibrillation Continue Bisoprolol Fumarate Tablet, 5 MG, 1 tab(s), orally, once a day; C ontinue Xarelto Tablet, 20 MG, 1 tablet with food, Orally, Once a day. 7. S eptic arthritis of knee Notes: continue to follow with Dr. Mcdonald 8. B PH (benign prostatic hyperplasia) Continue Tamsulosin HCl Capsule, 0.4 mg, TAKE ONE CAPSULE BY MOUTH EVERY DAY. * Procedure Codes: G 2211 Complex e/m visit add on, G8420 BMI<30 AND >=22 CALC & DOCU, 3074F SYST BP LT 130 MM HG, 3078F DIAST BP < 80 MM HG * Follow Up: * Images: Billing Information: * Visit Code: 53020 Office Visit, Est Pt., Level 4. * Procedure Codes: G2211 Complex e/m visit add on. G8420 BMI<30 AND >=22 CALC & DOCU. 3074F SYST BP LT 130 MM HG. 3078F DIAST BP < 80 MM HG. * Electronic signature of Dahlia Velez APRN on 09/10/2025 at 08:39 AM EST Sign off status: Pending * Provider: GABRIELLE Sanders Date: 0 03/19/2025 Generated for Galilea lozano/Ken/Stevenitting on: 1 11/10/2024 08:39 AM EST History and Physical Notes * HPI (History of Present Illness) Category Sub-Category Detail Notes Category Not es Cardiology Leg Edema Pt presents toda y with c/o swelling in the right leg and ankle. Pt did have recent knee surgery on the right knee. Pt sts that it was about 6-8 weeks ago. Pt sts that he is more fatigued that usual. Pt sts that his HCTZ was switched to PRN. Pt sts that he is feeling more short of breath than usual as well Hypotension Examination Category Sub-Category Detail Notes Category Not es General Examination Heart: irregular rhythm Ort hostatic BP standing 86/60 and 96/64; sitting 90/60 and 86/60 Lungs: CTAB A&P Extremities: minimal left leg cornelio ma; edema of the right leg from knee down General Appearance: NAD , alert , pleasa nt , well nourished and hydrated Neurologic Exam: alert and oriented LABS CBC-hgb/hct/wbc 14.2/43.8/5.5; plt 653317 GFR 73 Creatinine 1 LDL 46.76 HDL 31 SGOT/SGPT 21/17 glucose 150 Total Cholesterol 95 Potassium 4.2 Sodium 140 BUN 38 TSH 3.80 Triglyceride 113 calcium 9.7 chloride 103 CO2 27 alk phos 81 total bilirubin 0.7 albumin 5 date of labs 03/14/2025 magnesium 1.9
--- OUTSIDE RECORDS SUMMARY | 2025-03-26 06:30 | XMS_ITS ---
Author Organization [facility] Address [address] [id number] Care Team Providers Care Material Handling Crew Supervisor Name Role Phone Nas Shea Primary Care Provider Jessie Velez Unavailable [phone] Allergies No Known Allergies REASON FOR VISIT lasik follow up Medications Medication SIG (Take, Route, Frequency, Duration) Notes Start Date End Date Status Levothyroxine Sodium 75 MCG 1 tab(s) ora lly once a day Active Furosemide 20 MG 1 tablet Orally Once a day; Duration: 3 days Active Pregabalin 50 MG 1 capsule Orally Three times a day Active Omeprazole 40 mg TAKE ONE CAPSULE BY MOUTH EVERY DAY; Duration: 90 Active Bisoprolol Fumarate 5 MG 1 tab(s) orally once a day Active Atorvastatin Calcium 40 MG 1 tab(s) oral ly once a day (at bedtime) Active Amitriptyline HCl 50 MG 1.5 tab(s) orall y once a day (at bedtime); Duration: 30 Active Lasix 20 MG 1 tablet Orally Once a day prn Active Aspirin 81 81 MG 1 tablet Orally Once a day Active Jardiance 10 MG 1 tab(s) orally once a day (in the morning) Not-Taking Tamsulosin HCl 0.4 mg TAKE ONE CAPSULE B Y MOUTH EVERY DAY Active hydroCHLOROthiazide 25 MG 1 tab(s) orall y As needed; Duration: 90 days Not-Taking Xarelto 20 MG 1 tablet with food Orally Once a day 10/19/2024 Active Vital Signs Blood pressure systolic 120 mm Hg 03/26/20 25 Blood pressure diastolic 80 mm Hg 025 Heart Rate 100 /min 03/26/2025 Height 72 in 03/26/2025 Weight 207.2 lbs 03/26/2025 BMI 28.1 kg/m2 03/26/2025 Encounters Encounter Location Date Provider Diagnosis [facility] [address] [place] [address] [address] [place], [place] [id number] 03/26/2025 Jessie Velez Hypotension I95.9 ; Edema of both legs R60.0 and BMI 28.0-28.9,adult Z68.28 Assessments Encounter Date Diagnosis (ICD Code) Assessment Notes Treatment Notes Treatment Clinical Notes Section Notes 03/26/2025 Hypotension (ICD-10 - I95.9) BP has been normal; no med changes; to keep cardiology FU appt 03/26/2025 Edema of both legs (ICD-10 - R60.0) will continue to monitor; no med changes; to keep cardiology appt 03/26/2025 BMI 28.0-28.9,adult (ICD-10 - Z68.28) Plan Of Treatment Treatment Notes Assessment Notes Hypotension BP has been normal; no med changes; to keep cardiology FU appt Edema of both legs will continue to mon itor; no med changes; to keep cardiology appt Next Appt Details Follow Up: to keep appt with Dr. Shea 04/18/2025, Reason: Provider Name:Nas Solis, 11/05/2025 09:15:00 AM, [address] [facility] [address] [facility], [address], [place], [place], [id number], Progress Notes * ANGIE SWANOB: 0 (75 yo M)Acc No.[id number]:03/26/2025 Progress Notes Patient: Henry SHIRAJAGRUTI MORALESENCE Provider: GABRIELLE Sanders :1950 A ge:74 Y S ex:Male Date:03/26/2025 Address:[address] [place] [place] [address] LUIZ KAMINSKI , [id number] Pcp:Nas Shea Subjective: * Chief Complaints: * 1 . Lasik follow up. * HPI: H PI: CXR per DR. Ann with whom he has appt after this; reviewed BP's which appear good; also has FU appt with cardiology this week. 74 year old male presents with c/o Here for follow up on: P t is here today for a f/u after having lasix done. Pt sts he also had a chest xray done this morning as well. * ROS: R ESPIRATORY: Positive for h as pulmonary appt this PM. S hortness of breath y es. n o C hest pain. n o C ough. C ARDIOLOGY: no C hest pain. L eg edema y es. S hortness of breath y es, c ontinues with SOB. D ERMATOLOGY: no R jean marie. n o H sally. G ASTROENTEROLOGY: no N ausea. n o V omiting. n o D iarrhea.? H EMATOLOGY/LYMPH: Positive for h ad oncology appt this AM with Dr. Eason. his notes as follows: HPI:Mr. Swan is in for follow-up of multiple myeloma. Details of his disease and treatment are described above. Most recently, all therapy was held on December 18, 2024 aside from dexamethasone weekly due to increasing fatigue and with an excellent response that included no observed monoclonal protein remaining on SPEP. Dexamethasone was then held in January 2025. He is in today with repeat examination and lab work. The lab work is reviewed above and does note a quantifiable monoclonal IgG kappa protein on laboratories from last week though minimal amount. Other laboratories are unremarkable. He continues to be quite frail and ambulates with a walker today. He is still having discomfort in his right knee for which she follows orthopedics. They are planning an MRI of this area. He also notes marked shortness of air when ambulating though is comfortable when sitting down. He last saw cardiology earlier this month and has had some diuretics adjusted. He has not seen a rn procedures. During walking test today in clinic his oxygen saturation dropped to 86% though was 96% on room air at rest prior to this. There have been no other pulmonary symptoms such as cough. As for shortness of air with exertion and drop in oxygen saturation on walking test, I have recommended an appoint with pulmonology but also further follow-up with cardiology. Pulmonology has graciously agreed to see him today and will decide on further workup and treatment from their standpoint. We will make a follow-up with cardiology in the near future. Certainly some of his symptoms may be due to deconditioning given the issues with his knee and he will continue to follow-up with orthopedics regarding this. At this juncture, I do not believe any of his clinical symptoms are related to his myeloma. I have asked Mr. Swan and a friend who accompanied him today to let me know if there are any questions or concerns, at any time. . U ROLOGY: no D ifficulty urinating. n [...] Open Heart Surgery-Dr Mott @ [facility] 12/2015, thoracentesis 12/2015, Laparoscopic cholecystectomy - Dr. Wallace 09/06/16, cardiac defibirilltor placed-Dr Yates 07/04/2020, cataract surgery-right eye 12/2020, Knee Surgery - Due to Infection -01/2025. * Hospitalization/Major Diagno stic Procedure: H ER-suture to pinky finger of left hand 09/25/09, C-scope - Dr. Kimball 09/2013, [facility] ER-Afib 01/2016, [facility] pancreatitis 09/02/16, Left heart cath/[place]/ normal flow of revascularized vessels 02/2017, [facility]-tachycardia 07/02 to 07/03/2020, [facility] UTC - Fall 11/14/2023. * Family History: F ather: , emphysema. M other: , diabetes, heart disease. 1 brother(s) - healthy. . * Social History: C URRENT TOBACCO USE S moking Status: Patient does NOT smoke. C affeine: yes, frequency:. Marital Status: . Past smoking status: no. Alcohol: no. * Medications: T aking Lasix 20 MG Tablet 1 tablet Orally Once a day , Notes to Pharmacist: prn, Taking Aspirin 81 81 MG Tablet Delayed Release 1 tablet Orally Once a day , Taking Atorvastatin Calcium 40 MG Tablet 1 tab(s) orally once a day (at bedtime) , Taking Amitriptyline HCl 50 MG Tablet 1.5 tab(s) orally once a day (at bedtime) , Taking Pregabalin 50 MG Capsule 1 capsule Orally Three times a day , Taking Omeprazole 40 mg Capsule Delayed Release TAKE ONE CAPSULE BY MOUTH EVERY DAY , Taking Levothyroxine Sodium 75 MCG Tablet 1 tab(s) orally once a day , Taking Furosemide 20 MG Tablet 1 tablet Orally Once a day , Taking Bisoprolol Fumarate 5 MG Tablet 1 tab(s) orally once a day , Taking Xarelto 20 MG Tablet 1 tablet with food Orally Once a day , Taking Tamsulosin HCl 0.4 mg Capsule TAKE ONE CAPSULE BY MOUTH EVERY DAY , Not- Taking hydroCHLOROthiazide 25 MG Tablet 1 tab(s) orally As needed , Not-Taking Jardiance 10 MG Tablet 1 tab(s) orally once a day (in the morning) , Medication List reviewed and reconciled with the patient * Allergies: N .K.D.A. Objective: * Vitals: W t: 207.2, Temp: 97.9, BP: 120/80, HR: 100, O2 Sat: 97% on RA, Nurse: reynaldo, Ht: 72, BMI:28.1. * Examination: G eneral Examination: General Appearance: N AD , alert , pleasant; presents with healthcare applications analyst in a wheelchair. H eart: R RR. L ungs: C TAB A&P. N eurologic Exam: a lert and oriented. E xtremities: b ilateral minimal leg edema. ? Assessment: * Assessment: 1. H ypotension - I95.9 2 . E pia of both legs - R60.0 3 .?BMI 28.0-28.9,adult - Z68.28 Plan: * Treatment: 2. E pia of both legs Notes: will continue to monitor; no med changes; to keep cardiology appt * Procedure Codes: G 2211 Complex e/m visit add on, G8420 BMI<30 AND >=22 CALC & DOCU, G8950 PREHTN/HTN BP DOC INDCD F/U DOC, G8752 MOST RECENT SYSTOLIC BP < 140MM HG, G8754 MOST RECENT DIASTOLIC BP < 90MM HG * Follow Up: t o erik appt with Dr. Shea 04/18/2025 * Images: Billing Information: * Visit Code: 54585 Office Visit, Est Pt., Level 3. * Procedure Codes: G2211 Complex e/m visit add on. G8420 BMI<30 AND >=22 CALC & DOCU. G8950 PREHTN/HTN BP DOC INDCD F/U DOC. G8752 MOST RECENT SYSTOLIC BP < 140MM HG. G8754 MOST RECENT DIASTOLIC BP < 90MM HG. * Electronic signature of Dahlia Velez APRN on 09/10/2025 at 08:39 AM EST Sign off status: Pending * Provider: GABRIELLE Sanders Date: 0 03/26/2025 Generated for Galilea lozano/Ken/Stevenitting on: 1 11/10/2024 08:39 AM EST History and Physical Notes * HPI (History of Present Illness) Category Sub-Category Detail Notes Category Not es HPI Here for follow up on: Pt is her e today for a f/u after having lasix done. Pt sts he also had a chest xray done this morning as well Examination Category Sub-Category Detail Notes Category Not es General Examination Heart: RRR Lungs: CTAB A&P Extremities: bilateral minimal le g edema General Appearance: NAD , alert , pleasa nt; presents with healthcare applications analyst in a wheelchair Neurologic Exam: alert and oriented
--- OUTSIDE RECORDS SUMMARY | 2025-04-18 04:00 | XMS_ITS ---
Author Organization [facility] Address [address] [place] [address] [address] [place] [phone] Care Team Providers Care Senior Commissions Analyst Name Role Phone Nas Shea Primary Care Provider REASON FOR VISIT 6 months Encounters Encounter Location Date Provider Diagnosis [facility] 12[address] [facility] [address] [facility] [address] [place] [phone] 04/18/2025 Nas Shea Plan Of Treatment Next Appt Details Provider Name:Nas Solis, 11/05/2025 09:15:00 AM, [address] [facility] 36 [facility], [address], [place], [phone], Progress Notes * ANGIE SWANOB: 0 (75 yo M)Acc No.[id number]:04/18/2025 Progress Notes Patient: Henry KEV CHEUNG Provider: Nas Shea M.D. :1950 A ge:74 Y S ex:Male Date:04/18/2025 Address:[address] [place] [address] TODD DEE YAMILEX , [place], [id number] Subjective: * Chief Complaints: * 1 . 6 months. * Medical History: Objective: * Vitals: Assessment: Plan: * Treatment: * Images: Billing Information: * Visit Code: * Procedure Codes: * Electronic signature of Nas Shea MD on 09/10/2025 at 08:41 AM EST Sign off status: Pending * Provider: Nas Shea M.D. Date: 0 04/18/2025 Generated for Galilea lozano/Ken/Lynn on: 1 11/10/2024 08:41 AM EST
--- OUTSIDE RECORDS SUMMARY | 2025-04-25 06:30 | XMS_ITS ---
Author Organization [facility] Address [address] [phone] Care Team Providers Care Block Tester Name Role Phone Nas Shea Primary Care Provider [phone] Allergies No Known Allergies REASON FOR VISIT [...] Risk Notes Problem Cardiac pacemaker in situ ([id number]) Pacemaker (Z95.0) Active confirmed Vital Signs Blood pressure systolic 112 mm Hg 04/25/20 25 Blood pressure diastolic 64 mm Hg 025 Heart Rate 78 /min 04/25/2025 Height 72 in 04/25/2025 Weight 187 lbs 04/25/2025 BMI 25.36 kg/m2 04/25/2025 Encounters Encounter Location Date Provider Diagnosis [facility] [address] [place], [place] [phone] 04/25/2025 R Jesus Monse Pacemaker Z95.0 ; [...] Follow Up: 3 Months, Reason: Provider Name:Nas Anand et, 11/05/2025 09:15:00 AM, [address] [facility], [address] , [place], [place], [phone], Progress Notes * JAGRUTI SWANENCEDOB: 0 (75 yo M)Acc No.[id number]:04/25/2025 Progress Notes Patient: KEV LUZ Provider: Nas Shea M.D. :1950 A ge:74 Y S ex:Male Date:04/25/2025 Address:[address] [place] [address] [place] , [id number] Subjective: * Chief Complaints: * 1 . Skin Tear on Left Arm Possibly Infected. * HPI: C ardiology: He had a permanent pacemaker placed yesterday by Dr. Yates. Xarelto is currently on hold. His Lasix dose was increased. He tells me the detailer would like for him to wean off [...] stents 03/08/2007, Open Heart Surgery-Dr Mott @ [facility] 12/2015, thoracentesis 12/2015, Laparoscopic cholecystectomy - Dr. Wallace 09/06/2016, cardiac defibirilltor placed-Dr Yates 07/04/2020, cataract surgery-right eye 12/2020, Knee Surgery - Due to Infection -01/2025, Cardiac Pacemaker 04/24/2025. * Hospitalization/Major Diagno stic Procedure: H ER-suture to pinky finger of left hand 09/25/2009, C-scope - Dr. Kimball 09/2013, [facility] ER-Afib 01/2016, [facility]-Gallstone pancreatitis 09/02/2016, Left heart cath/[place]/ normal flow of revascularized vessels 02/2017, [facility]-tachycardia 07/02-12/2019, [facility] UTC - Fall 11/14/2023. * Family [...] ultiple myeloma - C90.00 9 . B [place] 25.0-25.9,adult - Z68.25 ? Plan: * Treatment: [...] * Images: Billing Information: * Visit Code: 93149 Office Visit, Est Pt., Level 4. * Procedure Codes: G2211 Complex e/m visit add on. 1036F TOBACCO NON-USER. G8420 BMI<30 AND >=22 CALC & DOCU. G8783 BP SCR PRFRM RCMDD DEFIND SCR INTVL. G8752 MOST RECENT SYSTOLIC BP < 140MM HG. G8754 MOST RECENT DIASTOLIC BP < 90MM HG. * Electronic signature of Nas Shea MD on 09/10/2025 at 08:40 AM EST Sign off status: Pending * Provider: Nas Shea M.D. Date: 0 04/25/2025 Generated for Galilea lozano/Ken/Lynn on: 1 11/10/2024 08:40 AM EST History and Physical [...] sterile dressing. Cardiology He tells me the detailer would like for him to wean off [...]
--- OUTSIDE RECORDS SUMMARY | 2025-06-05 04:30 | XMS_ITS ---
Author Organization [facility] Address [address] [place] [phone] Care Team Providers Care Cattle Care Worker Name Role Phone Nas Shea Primary Care Provider [phone] AntolinEdmond zamana Unavailable [phone] Allergies No Known Allergies Results Component Value [...] 06/05/2025 Encounters Encounter Location Date Provider Diagnosis [facility] [address] [facility] [address] [facility] [address] [place], [place] [id number] 06/05/2025 Farida Dangelojunie Multiple myeloma C90 .00 ; Orbital cellulitis, [...] Provider Name:Nas Solis, 11/05/2025 09:15:00 AM, [address] [facility] [address] [facility], [address], [place], [place], [id number], Progress Notes * ANGIE DICKOB: 0 (75 yo M)Acc No.[id number]:06/05/2025 Progress Notes Patient: Henry SKYE KEV Provider: CARLOS Castaneda :1950 A ge:74 Y S ex:Male Date:06/05/2025 Address:[address] [place] [address] LUIZ K[place] , [place], [place]-[id number] Pcp:Nas Shea Subjective: * Chief Complaints: * [...] stents 03/08/2007, Open Heart Surgery-Dr Mott @ [facility] 12/2015, thoracentesis 12/2015, Laparoscopic cholecystectomy - Dr. Wallace 09/06/2016, cardiac defibirilltor placed-Dr Yates 07/04/2020, cataract surgery-right eye 12/2020, Knee Surgery - Due to Infection -01/2025, Cardiac Pacemaker 04/24/2025. * Hospitalization/Major Diagno stic Procedure: H ER-suture to pinky finger of left hand 09/25/2009, C-scope - Dr. Kimball 09/2013, [facility] ER-Afib 01/2016, [facility]-Gall[facility] pancreatitis 09/02/2016, Left heart cath/[place]/ normal flow of revascularized vessels 02/2017, [facility]-tachycardia 07/02-12/2019, [facility] UTC - Fall 11/14/2023. * Family History: [...] ultiple myeloma - C90.00 3 . B [place] 26.0-26.9,adult - Z68.26 Plan: * Treatment: Value [...] * Images: Billing Information: * Visit Code: 62720 Office Visit, Est Pt., Level 3. * Procedure Codes: G2211 Complex e/m visit add on. 1036F TOBACCO NON-USER. G8420 BMI<30 AND >=22 CALC & DOCU. G8783 BP SCR PRFRM RCMDD DEFIND SCR INTVL. G8752 MOST RECENT SYSTOLIC BP < 140MM HG. G8754 MOST RECENT DIASTOLIC BP < 90MM HG. * Electronic signature of CARLOS Chase on 09/10/2025 at 08:40 AM EST Sign off status: Pending * Provider: CARLOS Castaneda Date: 0 06/05/2025 Generated for Galilea lozano/Ken/Stevenitting on: 1 11/10/2024 08:40 AM EST History [...]
--- OUTSIDE RECORDS SUMMARY | 2025-06-07 04:00 | XMS_ITS ---
Author Organization [facility] Address [address] [id number] Care Team Providers Care Gate Services Supervisor Name Role Phone Nas Shea Primary Care Provider Farida Ponce Unavailable [phone] Allergies No Known Allergies REASON FOR VISIT [...] EVERY DAY; Duration: 90 Active Vital Signs Blood pressure systolic 110 mm Hg 06/07/20 25 Blood pressure diastolic 70 mm Hg 025 Heart Rate 82 /min 06/07/2025 Height 72 in 06/07/2025 Weight 199.2 lbs 06/07/2025 BMI 27.01 kg/m2 06/07/2025 Encounters Encounter Location Date Provider Diagnosis CATHLEENA-Kandis 1210 [facility] [address] [facility] [address] [place] [id number] 06/07/2025 Farida Crowjunie Orbital cellulitis, right H05.011 ; Cutaneous abscess [...] Next Appt Details Follow Up: Tuesday with aDsh pedroza, Reason: Provider Name:Nas Solis, 11/05/2025 09:15:00 AM, 1210 [facility] [address] [facility], [address], [place], [id number], Progress Notes * ANGIE DICKOB: 0 (75 yo M)Acc No.[id number]:06/07/2025 Progress Notes Patient: Madisyn KEV CHEUNG Provider: CARLOS Castaneda :1950 A ge:74 Y S ex:Male Date:06/07/2025 Address:[address] [place] [address] [address]EE YAMILEX CHAP[place]O, [place], [id number] Pcp:Nas Shea Subjective: * Chief Complaints: * 1 . Tuesday f/u. * HPI: D ermatology: 74 year old male presents with c/o bug bites P t is here today for a f/u on a bug bite he had under the rt eye. Pt sts the swelling is still there and it is soap tender. * ROS: C ARDIOLOGY: no D izziness. [...] hand 09/25/2009, C-scope - Dr. Kimball 09/2013, [facility] ER-Afib 01/2016, [facility] pancreatitis 09/02/2016, Left heart cath/[place]/ normal flow of revascularized vessels 02/2017, [facility]-tachycardia 07/02-12/2019, [facility] - Fall 11/14/2023. * Family History: F [...] of face - L02.01 3 . B [place] 27.0-27.9,adult - Z68.27 Plan: * Treatment: * Procedure Codes: G 2211 Complex e/m visit add on, 1036F TOBACCO NON-USER, G8420 BMI<30 AND >=22 CALC & DOCU, G8783 BP SCR PRFRM RCMDD DEFIND SCR INTVL, G8752 MOST RECENT SYSTOLIC BP < 140MM HG, G8754 MOST RECENT DIASTOLIC BP < 90MM HG * Follow Up: with Monse * Images: Billing Information: * Visit Code: 15366 Office Visit, Est Pt., Level 3. * Procedure Codes: G2211 Complex e/m visit add on. 1036F TOBACCO NON-USER. G8420 BMI<30 AND >=22 CALC & DOCU. G8783 BP SCR PRFRM RCMDD DEFIND SCR INTVL. G8752 MOST RECENT SYSTOLIC BP < 140MM HG. G8754 MOST RECENT DIASTOLIC BP < 90MM HG. * Electronic signature of CARLOS Chase on 09/10/2025 at 08:39 AM EST Sign off status: Pending * Provider: CARLOS Castaneda Date: 0 06/07/2025 Generated for Galilea lozano/Ken/Stevenitting on: 1 11/10/2024 08:39 AM EST History and Physical Notes * HPI (History of Present Illness) Category Sub-Category Detail Notes Category Not es Dermatology bug bites Pt is here today for a f/u on a bug bite he had under the rt eye. Pt sts the swelling is still there and it is soap tender Examination Category Sub-Category Detail Notes Category Not es General Examination HEENT: under right eye is a bug bite that has surrounding erythema and edema under the orbit, the area is tender and more firm today, it is not fluctuant Heart: RSR Lungs: clear to auscultatio n General Appearance: NAD Chest: normal shape and exp ansion
--- OUTSIDE RECORDS SUMMARY | 2025-06-13 04:15 | XMS_ITS ---
Author Organization [facility] Address [address] [id number] Care Team Providers Care Business Case Analyst Name Role Phone Nas Shea Primary Care Provider Allergies No Known Allergies REASON FOR VISIT f/u Medications Medication SIG (Take, Route, Frequency, Duration) Notes Start Date End Date Status Clindamycin HCl 300 MG 1 capsule Orally 3 times a day Active Atorvastatin Calcium 40 MG 1 tab(s) orally once a day (at bedtime) Active Lasix 20 MG 1 tablet Orally every other day prn Active Losartan Potassium 25 MG 1 tablet Orally twice a day Active Lasix 40 MG 1 tablet Orally every other day Active Bisoprolol Fumarate 5 MG 1 tab(s) orally once a day; Duration: 90 days Active traMADol HCl 50 MG 1 tab Orally twice a day prn pain 04/25/2025 Active Levothyroxine Sodium 75 MCG 1 tab(s) orally once a day; Duration: 90 days Active Amitriptyline HCl 50 MG 1.5 tab(s) orally once a day (at bedtime) Instructed to wean by 1/2 tablet daily per month Active Aspirin 81 81 MG 1 tablet Orally Once a day; Duration: 90 days Active Tamsulosin HCl 0.4 mg TAKE ONE CAPSULE BY MOUTH EVERY DAY Active Xarelto 20 MG 1 tablet with food Orally Once a day 10/19/2024 Active Omeprazole 40 mg TAKE ONE CAPSULE BY MOUTH EVERY DAY; Duration: 90 Active Vital Signs Blood pressure systolic 120 mm Hg 06/13/20 25 Blood pressure diastolic 80 mm Hg 025 Heart Rate 70 /min 06/13/2025 Height 72 in 06/13/2025 Weight 196.6 lbs 06/13/2025 BMI 26.66 kg/m2 06/13/2025 Encounters Encounter Location Date Provider Diagnosis Joel 1210 [facility] 36 [facility] [address] [place] [id number] 06/13/2025 aNs Shea Orbital cellulitis, right H05.011 ; Cutaneous abscess of face L02.01 and BMI 26.0-26.9,adult Z68.26 Assessments Encounter Date Diagnosis (ICD Code) Assessment Notes Treatment Notes Treatment Clinical Notes Section Notes 06/13/2025 Orbital cellulitis, right (ICD-10 - H05.011) 06/13/2025 Cutaneous abscess of face (ICD-10 - L02.01) 06/13/2025 BMI 26.0-26.9,adult (ICD-10 - Z68.26) Plan Of Treatment Medication Medication Name Sig Start Date Stop Date Notes Clindamycin HCl 300 MG 1 capsule Orally 3 times a day Next Appt Details Follow Up: as scheduled, Alix son: Provider Name:Nas Solis, 11/05/2025 09:15:00 AM, 1210 [facility] 36 [facility], [address], [place], [id number], Progress Notes * ANGIE SWANOB: 0 (75 yo M)Acc No.[id number]:06/13/2025 Patient: Henry KEV CHEUNG Provider: Nas Shea M.D. :1950 A ge:74 Y S ex:Male Date:06/13/2025 Address:[address] [place] [address] LUIZ KAMINSKI , [place], [id number] Subjective: * Chief Complaints: * 1 . f/u. * HPI: O pthalmology: 74 year old male presents with c/o redness P t is here today for a f/u on his rt eye. Pt sts his eye is doing and looks much better, and sts he does have a couple doses left of the Clindmycin. * ROS: C ARDIOLOGY: no D izziness. [...] stents 03/08/2007, Open Heart Surgery-Dr Mott @ [facility] 12/2015, thoracentesis 12/2015, Laparoscopic cholecystectomy - Dr. Wallace 09/06/2016, cardiac defibirilltor placed-Dr Yates 07/04/2020, cataract surgery-right eye 12/2020, Knee Surgery - Due to Infection -01/2025, Cardiac Pacemaker 04/24/2025. * Hospitalization/Major Diagno stic Procedure: H ER-suture to pinky finger of left hand 09/25/2009, C-scope - Dr. Kimball 09/2013, [facility] ER-Afib 01/2016, [facility] pancreatitis 09/02/2016, Left heart cath/[place]/ normal flow of revascularized vessels 02/2017, [facility]-tachycardia 07/02-12/2019, [facility] UTC - Fall 11/14/2023. * Family History: [...] tablet Orally Once a day , Taking Clindamycin HCl 300 MG Capsule 1 capsule Orally 3 times a day , Medication List reviewed and reconciled with the patient * Allergies: N .K.D.A. Objective: * Vitals: W t: 196.6, Temp: 97.4, BP: 120/80, HR: 70, O2 Sat: 98% on RA, Nurse: reynaldo, Ht: 72, BMI:26.66. * Examination: D ermatology: Face: T he periorbital swelling and redness have resolved.? There is a residual knot at the site of the initial bite.. Assessment: * Assessment: 1. O rbital cellulitis, right - H05.011 (Primary) 2 . C utaneous abscess of face - L02.01 3 . B [place] 26.0-26.9,adult - Z68.26 Plan: * Treatment: * Procedure Codes: G 2211 Complex e/m visit add on, 1036F TOBACCO NON-USER, G8783 BP SCR PRFRM RCMDD DEFIND SCR INTVL, G8752 MOST RECENT SYSTOLIC BP < 140MM HG, G8754 MOST RECENT DIASTOLIC BP < 90MM HG * Follow Up: a s scheduled * Images: Billing Information: * Visit Code: 94693 Office Visit, Est Pt., Level 3. * Procedure Codes: G2211 Complex e/m visit add on. 1036F TOBACCO NON-USER. G8783 BP SCR PRFRM RCMDD DEFIND SCR INTVL. G8752 MOST RECENT SYSTOLIC BP < 140MM HG. G8754 MOST RECENT DIASTOLIC BP < 90MM HG. * Electronic signature of Nas Shea MD on 09/10/2025 at 08:41 AM EST Sign off status: Pending * Provider: Nas Shea M.D. Date: 0 06/13/2025 Generated for Galilea lozano/Ken/Stevenitting on: 1 11/10/2024 08:41 AM EST History and Physical Notes * HPI (History of Present Illness) Category Sub-Category Detail Notes Category Not es Opthalmology redness Pt is here today for a f/u on his rt eye. Pt sts his eye is doing and looks much better, and sts he does have a couple doses left of the Clindmycin Examination Category Sub-Category Detail Notes Category Not es Dermatology Face: The periorbital swelling and redness have resolved. There is a residual knot at the site of the initial bite.
--- OUTSIDE RECORDS SUMMARY | 2025-07-02 04:15 | XMS_ITS ---
Author Organization [facility] Address [address] [place], [place] [id number] Care Team Providers Care Director Of Assessment Name Role Phone Nas Shea Primary Care Provider Allergies No Known Allergies Results Component Value Reference Range Notes CBC Venipuncture (in house) Reviewed date:07/04/2025 08:31:36 AM Interpretation:normal Performing Lab: Notes/Report: normal wbc 3.9 3.5 - 10 lymph 13.8% 15 - 50 mid 5.8% 2 - 15 gran 80.4% 35 - 80 rbc 4.30 3.5 - 5.5 hgb 12.4 11.5 - 16.5 hct 38.1 35 - 55 mcv 88.5 75 - 100 mch 28.9 25 - 35 mchc 32.6 31 - 38 platlet 166 100 - 400 Glycohemoglobin A1c (in hous e) Reviewed date:07/04/2025 08:31:36 AM Interpretation:5.7% Performing Lab: Notes/Report: 5.7% glycohemoglobin 5.7% 5 - 6.5 % P-Comprehensive Metabolic Pa kaz (CMP) Reviewed date:07/04/2025 08:31:36 AM Interpretation:FBS 110; GFR 86 Performing Lab: Notes/Report: CLIA: [id number] Renato Cobb MD, Fitness And Wellness Director [address] [facility] , [address], [place] [address] Test performed by [employer] [facility] [employer], [facility] Sodium 142 135-145 mmol/L Potassium 4.4 3.5-5.3 mmol/L Chloride 105 97-108 mmol/L CO2 25 20-32 mmol/L Glucose 110 65-99 mg/dL BUN 18 8-23 mg/dL Creatinine 0.93 0.70-1.30 mg/dL Calcium 9.1 8.6-10.4 mg/dL eGFR by Creatinine 86 >59 mL/min/1.73m2 Protein 6.4 6.0-8.3 g/dL Albumin 4.5 3.5-5.3 g/dL Alkaline Phosphatase 81 40-129 IU/L ALT (SGPT) 13 <5-55 IU/L AST (SGOT) 14 <5-46 IU/L Bilirubin, Total 0.7 <0.2-1.2 mg/dL A/G Ratio 2.4 1.1-2.5 P-Lipid Panel Reviewed date:07/04/2025 08:31:36 AM Interpretation:LDL 48 Performing Lab: Notes/Report: Test performed by [employer], [address] , [address] , [place] [address] Renato Cobb MD, Fitness And Wellness Director CLIA: [id number] Cholesterol 93 <200 mg/dL Triglycerides 84 <150 mg/dL HDL Cholesterol 28 >39 mg/dL Cholesterol / HDL Ratio 3.32 0.00-4.99 Ratio Non-HDL Cholesterol 65 <130 mg/dL LDL Cholesterol (Calculation) 48 <130 mg/dL LDL Cholesterol Levels* Less than 100 mg/dL Optimal 100 to 129 mg/dL Near Optimal/ Above Optimal 130 to 159 mg/dL Borderline High 160 to 189 mg/dL High 190 mg/dL and above Very High * Categories as recommended by the 2004 ATPIII guidelines LDL/HDL Ratio 1.7 <3.3 Ratio LDL Cholesterol Patient History Test Date: 04/19/2024 LDL Results: 30 Units: mg/dL % Change: -23% Test Date: 10/18/2024 LDL Results: 59 Units: mg/dL % Change: +96% Test Date: 07/02/2025 LDL Results: 48 Units: mg/dL % Change: -18% P-TSH Reviewed date:07/04/2025 08:31:36 AM Interpretation:4.19 Performing Lab: Notes/Report: Test performed by [employer] [address] [place] [address] , [place] [address] Renato Cobb MD, Fitness And Wellness Director CLIA: [id number] TSH 4.19 0.43-5.25 mU/L P-Microalbumin/Creatinine, R andom Urine Sample Reviewed date:07/04/2025 08:31:36 AM Interpretation:A/C 44 Performing Lab: Notes/Report: Test performed by [employer] [address] [place], [place] [address] , [place] [address] Renato Cobb MD, Fitness And Wellness Director CLIA: [id number] Albumin/Creatinine Ratio, Urine 44 0-30 ug/m g Microalbumin, Urine, Random 5.6 Creatinine, Urine 128.0 REASON FOR VISIT 3 months check and Annual Wellness Visit Medications Medication SIG (Take, Route, Frequency, Duration) Notes Start Date End Date Status traMADol HCl 50 MG 1 tab Orally twice a day prn pain 07/02/2025 Active traZODone HCl 50 MG 1/2-1 tablet at bedtime as needed Orally Once a day; Duration: 30 days 07/02/2025 Active Lasix 40 MG 1 tablet Orally ever y other day Not-Taking Omeprazole 40 mg 1 capsule orally onc e a day; Duration: 90 days Active Bisoprolol Fumarate 5 MG 1 tab(s) orally once a day; Duration: 90 days Active Aspirin 81 81 MG 1 tablet Orally Once a day; Duration: 90 days Active Levothyroxine Sodium 75 MCG 1 tab(s) orally once a day; Duration: 90 days Active Atorvastatin Calcium 40 MG 1 tablet at b edtime Orally Once a day; Duration: 90 days Active Tamsulosin HCl 0.4 mg TAKE ONE CAPSULE B Y MOUTH EVERY DAY Active Xarelto 20 MG 1 tablet with food Orally Once a day 10/19/2024 Active Losartan Potassium 25 MG 1 tablet Orally twice a day Active Lasix 20 MG 1 tablet Orally ever y other day prn Active Jardiance 10 MG 1 tablet Orally Once a day Active Digoxin 125 MCG 1 tablet Orally Active Problems Problem Type SNOMED Code ICD Code Onset Dates Problem Status W/U Status Risk Notes Problem Insomnia (746215805) Insomnia (G47.00) Active confirmed Vital Signs Blood pressure systolic 130 mm Hg 07/02/20 25 Blood pressure diastolic 82 mm Hg 025 Heart Rate 71 /min 07/02/2025 Height 72 in 07/02/2025 Weight 193.6 lbs 07/02/2025 BMI 26.25 kg/m2 07/02/2025 Encounters Encounter Location Date Provider Diagnosis [facility] [address] [place], [place] [id number] 07/02/2025 Nas Shea Adult general medica l examination Z00.00 ; Essential hypertension I10 ; Dyslipidemia E78.5 ; Acquired hypothyroidism E03.9 ; MGUS (monoclonal gammopathy of unknown significance) D47.2 ; Peripheral neuropathy G62.9 ; Multiple myeloma C90.00 ; 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 07/02/2025 Essential hypertension (ICD-10 - I10) 07/02/2025 Dyslipidemia (ICD-10 - E78.5) 07/02/2025 Acquired hypothyroidism (ICD-10 - E03.9) 07/02/2025 MGUS (monoclonal gammopathy of unknown significance) (ICD-10 - D47.2) 07/02/2025 Peripheral neuropathy (ICD-10 - G62.9) 07/02/2025 Multiple myeloma (ICD-10 - C90.00) 07/02/2025 Type 2 diabetes mellitus with other circulatory complication (ICD-10 - E11.59) 07/02/2025 Insomnia (ICD-10 - G47.00) 07/02/2025 BMI 26.0-26.9,adult (ICD-10 - Z68.26) Plan Of Treatment Medication Medication Name Sig Start Date Stop Date Notes traMADol HCl 50 MG 1 tab Orally twice a day prn pain 07/02 traZODone HCl 50 MG 1/2-1 tablet at bedt cuca as needed Orally Once a day; Duration: 30 days 07/02/2025 Treatment Notes Assessment Notes Adult general medical examination Patien t instructed to return to office Annually for Annual Wellness Visits to include annual screenings of Pain assessment, Functional Ability assessment, Cognitive Ability assessment, Fall Risk assessment, Depression screening and Bladder control screening. Next Appt Details Follow Up: 4 Months, Reason: Provider Name:Nas Solis, 11/05/2025 09:15:00 AM, [address], [address], [place], [place], [id number], Progress Notes * ANGIE SWANOB: 0 (75 yo M)Acc No.[id number]:07/02/2025 Annual Wellness Visit Patient: Henry KEV CHEUNG Provider: Nas Shea M.D. :1950 A ge:75 Y S ex:Male Date:07/02/2025 Address:[address] [place] [address] TODD KAMINSKI , [id number] Subjective: * Chief Complaints: * 1 . 3 months check and Annual Wellness Visit. * HPI: H PI: Patient is here today for A scheduled 3-month check up on Diabetes and Hypertension and a Medicare Annual Wellness Visit. Pt states he is having a lot of trouble sleeping. Pt states his is in hospice care and that is very difficult for him. Pt is fasting. He continues to follow with Dr. Eason for his multiple myeloma and with cardiology. Cardiology recommended discontinuing amitriptyline which he did so about a week ago. This may be contributing some to his insomnia. G astroenterology: His last Cologuard was in 2022 and was negative. * ROS: D ERMATOLOGY: no R jean marie. n o H sally. G ASTROENTEROLOGY: no N ausea. n o V omiting. n o D iarrhea.? O PTHALMOLOGY: Negative for d enies vision issues. U ROLOGY: no D ifficulty urinating. n [...] Multiple myeloma - dx 2022 - Dr. Eason, Cologuard 12/2022 - Negative. * Surgical History: C oronary stents 03/08/2007, Open Heart Surgery-Dr Mott @ [facility] 12/2015, thoracentesis 12/2015, Laparoscopic cholecystectomy - Dr. Wallace 09/06/2016, cardiac defibirilltor placed-Dr Yates 07/04/2020, cataract surgery-right eye 12/2020, Knee Surgery - Due to Infection -01/2025, Cardiac Pacemaker 04/24/2025. * Hospitalization/Major Diagno stic Procedure: H ER-suture to pinky finger of left hand 09/25/2009, C-scope - Dr. Kimball 09/2013, [facility] ER-Afib 01/2016, [facility]-Gall[facility] pancreatitis 09/02/2016, Left heart cath/[place]/ normal flow of revascularized vessels 02/2017, [facility]-tachycardia 07/02-12/2019, [facility] UTC - Fall 11/14/2023. * Family History: F ather: , emphysema. M other: , diabetes, heart disease. 1 brother(s) - healthy. . * Social History: C URRENT TOBACCO USE: No . C affeine: yes, frequency:. Marital Status: . Past smoking status: no. Alcohol: no. * Medications: T aking Digoxin 125 MCG Tablet 1 tablet Orally , Taking Jardiance 10 MG Tablet 1 tablet Orally Once a day , Taking Losartan Potassium 25 MG Tablet 1 tablet Orally twice a day , Taking Lasix 20 MG Tablet 1 tablet Orally every other day , Notes to Pharmacist: prn, Taking Xarelto 20 MG Tablet 1 tablet [...] twice a day prn pain , Taking Aspirin 81 81 MG Tablet Delayed Release 1 tablet Orally Once a day , Taking Atorvastatin Calcium 40 MG Tablet 1 tablet at bedtime Orally Once a day , Taking Omeprazole 40 mg Capsule Delayed Release 1 capsule orally once a day , Not-Taking Lasix 40 MG Tablet 1 tablet Orally every other day , Discontinued Amitriptyline HCl 50 MG Tablet 1.5 tab(s) orally once a day (at bedtime) , Notes to Pharmacist: Instructed to wean by 1/2 tablet daily per month, Discontinued Clindamycin HCl 300 MG Capsule 1 capsule Orally 3 times a day , Medication List reviewed and reconciled with the patient * Allergies: N .K.D.A. Objective: * Vitals: W t: 193.6, Temp: 97.8, BP: 130/82, HR: 71, O2 Sat: 99% on RA, Nurse: MICAELA, Ht: 72, BMI:26.25. * Examination: C ardiology: General Appearance: A ppears sad but no acute distress.?Carotid upstroke: n ormal, no bruits. H eart sounds: R RR, normal S1, S2. M urmur, click , gallop: n one. L ungs: c lear, no rales or wheezes. E xtremities: n o leg edema. * Physical Examination: G ENERAL: Pain Assessment: P ain level: 7, on a scale of 0-10 (with 10 being extreme pain). F unctional Status Assessment: P atient response to question of how often physical health interferes with daily activities: Frequently. Able to perform ADLs-including meal preparation, grocery shopping, housework, laundry, taking medications or handling finances. Cognitive Status: alert and oriented. Ambulation Status: Fully ambulatory with rollator.?Fall Risk Assessment: I ndependant in ambulation with rollaotr, adequate lighting in home. Patient has fallen or had trouble walking within the past 12 months. D epression Screening: D escribes emotional health as: downhearted due to being recently placed in Hospice. B ladder Control Screening: s mall problems. Assessment: * Assessment: 1. A dult general medical examination - Z00.00 (Primary) 2 . E ssential hypertension - I10 3 . D yslipidemia - E78.5 4 . A cquired hypothyroidism - E03.9 5 . M DWAIN (monoclonal gammopathy of unknown significance) - D47.2 6 . P eripheral neuropathy - G62.9 7 . M ultiple myeloma - C90.00 8 . T ype 2 diabetes mellitus with other circulatory complication - E11.59 9 . I nsomnia - G47.00 1 0. B MS 26.0-26.9,adult - Z68.26 Plan: * Treatment: 2. E ssential hypertension L AB: P-Comprehensive Metabolic Panel (CMP) (Collection Date & Time - 07/02/2025 08:35 AM) F BS 110; GFR 86 Value Reference Range A /G Ratio 2.4 1.1-2.5 - * A lbumin 4.5 3.5-5.3 - g/dL * A lkaline Phosphatase 81 40-129 - IU/L * A LT (SGPT) 13 <5-55 - IU/L * A ST (SGOT) 14 <5-46 - IU/L * B ilirubin, Total 0.7 <0.2-1.2 - mg/dL * B UN 18 8-23 - mg/dL * C alcium 9.1 8.6-10.4 - mg/dL * C hloride 105 97-108 - mmol/L * C O2 25 20-32 - mmol/L * C reatinine 0.93 0.70-1.30 - mg/dL * G lucose 110 H 65-99 - mg/dL * P otassium 4.4 3.5-5.3 - mmol/L * S odium 142 135-145 - mmol/L * P rotein 6.4 6.0-8.3 - g/dL * e GFR by Creatinine 86 >59 - mL/min/1.73m2 * Nas Shea 07/04/2025 0 8:31:26 AM EDT > See phone encounter ?LAB: CBC Venipuncture (in house) (Collection Date & Time - 07/02/2025)? normal* Value Reference Range w bc 3.9 3.5 - 10 * l ymph 13.8% 15 - 50 * m id 5.8% 2 - 15 * g ran 80.4% 35 - 80 * r bc 4.30 3.5 - 5.5 * h gb 12.4 11.5 - 16.5 * h ct 38.1 35 - 55 * m cv 88.5 75 - 100 * m ch 28.9 25 - 35 * m chc 32.6 31 - 38 * p latlet 166 100 - 400 * Amy Bird 07/02/2025 12: 05:56 PM EDT > Nas Shea 07/04/2025 08:31:26 AM EDT > See phone encounter 3.?Dyslipidemia?LAB: P-Lipid Panel (Collection Date & Time - 07/02/2025 08:35 AM)?LDL 48* Value Reference Range C holesterol / HDL Ratio 3.32 0.00-4.99 - Ratio * C holesterol 93 <200 - mg/dL * H DL Cholesterol 28 L >39 - mg/dL * L DL Cholesterol (Calculation) 48 <130 - mg/d L * L DL/HDL Ratio 1.7 <3.3 - Ratio * N on-HDL Cholesterol 65 <130 - mg/dL * T riglycerides 84 <150 - mg/dL * Nas Shea 07/04/2025 0 8:31:26 AM EDT > See phone encounter 4.?Acquired hypothyroidism?LAB: P-TSH (Collection Date & Time - 07/02/2025 08:35 AM)?4.19* Value Reference Range T SH 4.19 0.43-5.25 - mU/L * Nas Shea 07/04/2025 0 8:31:26 AM EDT > See phone encounter 5.?Type 2 diabetes mellitus with other circulatory complication?LAB: P-Microalbumin/Creatinine, Random Urine Sample (Collection Date & Time - 07/02/2025 08:35 AM)?A/C 44* Value Reference Range A lbumin/Creatinine Ratio, Urine 44 H 0-30 - ug /mg * C reatinine, Urine 128.0 - mg/dL * M icroalbumin, Urine, Random 5.6 - mg/dL * Nas Shea 07/04/2025 0 8:31:26 AM EDT > See phone encounter ?LAB: Glycohemoglobin A1c (in house) (Collection Date & Time - 07/02/2025)? 5.7%* Value Reference Range g lycohemoglobin 5.7% 5 - 6.5 % * Amy Bird 07/02/2025 12: 04:03 PM EDT > Nas Shea 07/04/2025 08:31:26 AM EDT > See phone encounter 6.?Insomnia? Start traZODone HCl Tablet, 50 MG, 1/2-1 tablet at bedtime as needed, Orally, Once a day, 30 days, 30, Refills 1.??7.?Others? Refill traMADol HCl Tablet, 50 MG, 1 tab, Orally, twice a day prn pain, 60, Refills 2.?? * Procedure Codes: G 0439 ANNUAL WELLNESS VST; PPS SUBSQT VST, G2211 Complex [place], [address] GLYCATED HEMOGLOBIN TEST, Modifiers: QW , 1090F PRES/ABSN URINE INCON ASSESS, 3288F FALL RISK ASSESSMENT DOCD, 1170F FXNL STATUS ASSESSED, 1159F MED LIST DOCD IN RCRD, 1003F LEVEL OF ACTIVITY ASSESS, 40533 CBC WITH AUTO DIFF, 1036F TOBACCO NON- USER, 3017F COLORECTAL CA SCREEN DOC REV, 3044F HG A1C LEVEL LT 7.0%, 1125F AMNT PAIN NOTED PAIN PRSNT, G8420 BMI<30 AND >=22 CALC & DOCU, G8950 PREHTN/HTN BP DOC INDCD F/U DOC, G8752 MOST RECENT SYSTOLIC BP < 140MM HG, G8754 MOST RECENT DIASTOLIC BP < 90MM HG * Preventive Medicine: Counseling: E motional health: D iscussed ways to improve socialization. B ladder control: M ethods of controlling or managing leakage of urine discussed. E xercise: Patient advised to start, increase or maintain level of exercise/physical activity. I njury prevention: F all prevention discussed. Discussed need for cane/walker. Potential trip hazards discussed. Immunizations: T etanus u p to date. P neumococcal r ecommended. I nfluenza r ecommended seasonally. Screening / Special Tests: C olonoscopy C ologuard negative 2022. D iabetic Retinal Eye Exam R ecent history:, recommended today. N ephrology History R ecent history:, GFR and urine M/A ordered today. * Follow Up: 4 Months * Images: Billing Information: * Visit Code: 67625 Office Visit, Est Pt., Level 3. Modifiers: 25 * Procedure Codes: G0439 ANNUAL WELLNESS VST; PPS SUBSQT VST. G2211 Complex e/[place]. [address] GLYCATED HEMOGLOBIN TEST. Modifiers: QW 1090F PRES/ABSN URINE INCON ASSESS. 3288F FALL RISK ASSESSMENT DOCD. 1170F FXNL STATUS ASSESSED. 1159F MED LIST DOCD IN RCRD. 1003F LEVEL OF ACTIVITY ASSESS. 64320 CBC WITH AUTO DIFF. 1036F TOBACCO NON-USER. 3017F COLORECTAL CA SCREEN DOC REV. 3044F HG A1C LEVEL LT 7.0%. 1125F AMNT PAIN NOTED PAIN PRSNT. G8420 BMI<30 AND >=22 CALC & DOCU. G8950 PREHTN/HTN BP DOC INDCD F/U DOC. G8752 MOST RECENT SYSTOLIC BP < 140MM HG. G8754 MOST RECENT DIASTOLIC BP < 90MM HG. * Electronic signature of Nas Shea MD on 09/10/2025 at 08:40 AM EST Sign off status: Pending * Provider: Nas Shea M.D. Date: 0 07/02/2025 Generated for Galilea lozano/Ken/Stevenitting on: 1 11/10/2024 08:40 AM EST History and Physical Notes * HPI (History of Present Illness) Category Sub-Category Detail Notes Category Notes Gastroenterology His last Co loguard was in 2022 and was negative. HPI Patient is here today for A scheduled 3-month check up on Diabetes and Hypertension and a Medicare Annual Wellness Visit. Pt states he is having a lot of trouble sleeping. Pt states his is in hospice care and that is very difficult for him. Pt is fasting He continues to follow with Dr. Eason for his multiple myeloma and with cardiology. Cardiology recommended discontinuing amitriptyline which he did so about a week ago. This may be contributing some to his insomnia Physical Examination Category Sub-Category Detail Notes Section Note s GENERAL Pain Assessment: Pain level: 7, on a scale of 0-10 (with 10 being extreme pain) Functional Status Assessment: Patient re sponse to question of how often physical health interferes with daily activities: Frequently. Able to perform ADLs-including meal preparation, grocery shopping, housework, laundry, taking medications or handling finances.Cognitive Status: alert and oriented.Ambulation Status: Fully ambulatory with rollator Fall Risk Assessment: Independant in amb ulation with rollaotr, adequate lighting in home. Patient has fallen or had trouble walking within the past 12 months Depression Screening: [facility] down[facility] due to being recently placed in Hospice Bladder Control Screening: small problem s Examination Category Sub-Category Detail Notes Category Not es Cardiology Lungs: clear, no rales or wheezes Heart sounds: RRR, normal S1, S2 Carotid upstroke: normal, no bruits Extremities: no leg edema Murmur, click , gallop: none General Appearance: Appears sad but no a cute distress
--- OUTSIDE RECORDS SUMMARY | 2025-09-10 08:39 | XMS_ITS | Encounter Summary ---
Author Organization Healthcare Address [address] [place] [address] Care Team Providers Care Counseling Center Manager Name Role Phone Kai Shea MD Primary Care Provider [phone] Jessica Perales DO Unavailable [phone] Encounter Details Date Type Department Care Team (Late st Contact Info) Description 11/05/2024 Orders Only [place] [facility] [address] [place] [address] Rome York, DO [address] [id number] Neuropathy Social History Tobacco Use Types Packs/Day [...] in a longterm (including now)? No 05/04/2024 CAGE ASSESSMENT Answer [...] drink first t vane in the morning (EYE-OIL WELL DRILLING MANAGER) to steady your nerves or to [...] documented as of this encounter Care Teams Counseling Center Manager Relationship Specialty Start Date End Date Kai Shea MD [address] [place] [address] PCP - General 03/13/21 Jessica Perales DO [address] [place] [address] Resident Neurology 06/16/21 documented as of this encounter
--- OUTSIDE RECORDS SUMMARY | 2025-09-10 08:39 | XMS_ITS | Encounter Summary ---
Author Organization Healthcare Address [address] [place] [address] Care Team Providers Care Manager Specialty Name Role Phone Kai Shea MD Primary Care Provider [phone] Jessica Perales DO Unavailable [phone] Encounter Details Date Type Department Care Team (Late st Contact Info) Description 12/31/2024 Lab Requisition [facility] [address] [place] [address] Valdo Carrillo, CARLOS [address] [place] [address] [place] [address] Encounter for general adult medical examination without [...] place to sleep or slept in a prison (including now)? No 05/04/2024 PHQ-9 Answer Date [...] drink first t vane in the morning (EYE-CAR SHIFTER) to steady your nerves or to get [...] Culture Light Growth 01/06/2025 10:47 AM EDT [facility] Culture Staphylococcus epidermidis(A) [place] 01/06/2025 10:47 AM EDT [facility] Comment: This isolate has been identified using the FDA Approved [facility] The organism value for this result has been updated. These results have been appended to the previously preliminary verified report. Edited result: Previously reported as Gram positive cocci on 01/02/2025 at 0908 EST. Gram Stain Result Numerous Polymorphonuclear leukocytes(A) 01/06/2025 10:47 AM EDT [facility] Gram Stain Result Rare Gram positive cocci in pairs(A) 01/06/2025 10:47 AM EDT [facility] Joint Fluid Synovial fluid specimen [...] LAB MICROBIOLOGY - GENERAL ORDERABLES Final Result [facility] [address] [place] [address] documented in this encounter Visit Diagnoses Diagnosis [...] documented as of this encounter Care Teams Manager Specialty Relationship Specialty Start Date End Date Kai Shea MD [address] [place] [address] PCP - General 03/13/21 Jessica Perales DO [address] [facility] [address] [place] [address] Resident Neurology 06/16/21 documented as of this encounter
--- OUTSIDE RECORDS SUMMARY | 2025-09-10 08:39 | XMS_ITS | Encounter Summary ---
Author Organization Healthcare Address [address] [place] [address] Care Team Providers Care Occupational Health And Safety Officer Name Role Phone Kai Shea MD Primary Care Provider [phone] Jessica Perales DO Unavailable [phone] Encounter Details Date Type Department Care Team (Late st Contact Info) Description 12/31/2024 Lab Requisition [facility] [address] [place] [address] Valdo Carrillo, CARLOS [address] [place] [address] Encounter for general adult medical examination without [...] drink first t vane in the morning (EYE-A R SPECIALIST) to steady your nerves or to [...] LAB HEMATOLOGY METHOD 01/01/2025 2:08 PM EST [facility] Specimen Source, Body Fluid LAB HEMATOLOGY METHOD 01/01/2025 2:08 PM EST [facility] Clinical Diagnosis, Body Fluid Joint fluid. Neuropathy. History of plasma cell neoplasm and Parkinson's LAB HEMATOLOGY METHOD 01/01/2025 2:08 PM EST [facility] Interpretation , Body Fluid No evidence of malignancy; acute inflammatory cells. See comment A resident was involved in the service. I attest I examined the relevant preparations for the specimens and confirmed the diagnosis or interpretation. 01/01/2025 2:08 PM EST [facility] Pathologist Signature, Body Fluid 01/01/2025 2:08 PM EST [facility] Comment:Reviewed by: Prashanth Montiel MD LAB CP ASR DISCLAIMER Yes 01/01/2025 2:08 PM EST [facility] Joint Fluid 12/31/2024 3:15 PM EST 12/31/2024 6:01 PM EST Narrative [facility] - 01/01/2025 2:08 PM EST Correlation with microbiology studies is suggested. us Valdo GONZALEZ LAB BODY FLUIDS AND STOOLS ORDERABLES Final Result [facility] [address] [place] [address] * (ABNORMAL) Body Fluid Cell Count w/ Diff (12/31/2024 3:15 PM EST) Color, Body fluid Yellow LAB HEMATOLOGY METHOD 12/31/2024 8:00 PM [facility] Appearance, Body fluid Cloudy(A) LAB HEMATOLOGY METHOD 12/31/2024 8:00 PM [facility] Volume, Body fluid 2.5 cc LAB HEMATOLOGY METHOD 12/31/2024 8:00 PM [facility] Fluid Container Specimen received in EDTA tube LAB HEMATOLOGY METHOD 12/31/2024 8:00 PM [facility] Red Blood Cell Count, Body fluid 5,000 uL LAB HEMATOLOGY METHOD 12/31/2024 8:00 PM [facility] Total Nucleated Cell Count, Body fluid 44,000 uL LAB HEMATOLOGY METHOD 12/31/2024 8:00 PM [facility] Neutrophils %, Body fluid 95 % LAB HEMATOLOGY METHOD 12/31/2024 8:00 PM [facility] Lymphocytes %, Body fluid 1 % LAB HEMATOLOGY METHOD 12/31/2024 8:00 PM [facility] Monocytes/Macro phages %, Body fluid 4 % LAB HEMATOLOGY METHOD 12/31/2024 8:00 PM [facility] Eosinophils %, Body fluid 0 % LAB HEMATOLOGY METHOD 12/31/2024 8:00 PM [facility] Lining/Mesothel ial Cells %, Body fluid 0 % LAB HEMATOLOGY METHOD 12/31/2024 8:00 PM [facility] Neutrophils Absolute (PMN), Body fluid 41,800 uL LAB HEMATOLOGY METHOD 12/31/2024 8:00 PM [facility] Lymphocytes Absolute, Body fluid 440 uL LAB HEMATOLOGY METHOD 12/31/2024 8:00 PM [facility] Monocytes/Macro phages Absolute, Body fluid 1,760 uL LAB HEMATOLOGY METHOD 12/31/2024 8:00 PM [facility] Eosinophils Absolute, Body fluid 0 uL LAB HEMATOLOGY METHOD 12/31/2024 8:00 PM [facility] Basophils Absolute, Body fluid 0 uL LAB HEMATOLOGY METHOD 12/31/2024 8:00 PM [facility] Lining/Mesothel ial Cells Absolute, Body fluid 0 uL LAB HEMATOLOGY METHOD 12/31/2024 8:00 PM EST [facility] Comment, Body fluid None LAB HEMATOLOGY METHOD 12/31/2024 8:00 PM EST [facility] Comment:This is an appended report. These results have been appended to a previously preliminary verified report. Basophils %, Body fluid 0 % LAB HEMATOLOGY METHOD 12/31/2024 8:00 PM EST [facility] Joint Fluid 12/31/2024 3:15 PM EST 12/31/2024 6:01 PM EST Valdo GONZALEZ LAB BODY FLUIDS AN D STOOLS ORDERABLES NO SPECIMEN TYPE/SOURCE Final Result Performing Organization Address [facility] Co de Phone Number [facility] [address] [place] [address] * (ABNORMAL) Synovial fluid, crystal (12/31/2024 3:15 PM EST) Crystals, Joint Fluid Calcium Pyrophosphate Crystals Present(A) No Crystals Present 12/31/2024 11:06 PM EST [facility] Joint Fluid 12/31/2024 3:15 PM EST 12/31/2024 6:01 PM EST Narrative [facility] - 12/31/2024 11:06 PM EST Under compensated polarized light microscopy rhomboidal positively birefringent crystals are seen consistent with Calcium Pyrophosphate. The presence of steroid crystals may result in a false positive. Correlate results with recent history up to 2 months of steroid injection. Valdo GONZALEZ LAB BODY FLUIDS AND STOOLS ORDERABLES Final Result Performing Organization Address [facility] Co de Phone Number [facility] [address] [place] [address] documented in this encounter Visit Diagnoses Diagnosis [...] documented as of this encounter Care Teams Occupational Health And Safety Officer Relationship Specialty Start Date End Date Kai Shea MD [address] [place] [address] PCP - General 03/13/21 Jessica Perales DO [address] [facility] [address] [place] [address] Resident Neurology 06/16/21 documented as of this encounter
--- OUTSIDE RECORDS SUMMARY | 2025-09-10 08:40 | XMS_ITS | Clinical Summary ---
Author Organization [facility] Address [address] [place] [address] Phone Care Team Providers Care Marine Drafter Name Role Phone Unavailable Primary Care Provider [...] MEDICARE [place] PART A AND B [employer] [facility] FEDERAL [place] [address] [place] A [place] B ANTH [place]AL
--- OUTSIDE RECORDS SUMMARY | 2025-09-10 08:40 | XMS_ITS | Encounter Summary ---
Author Organization [place] [address] Care Team Providers Care Executive Administrative Assistant Name Role Phone Unavailable Primary Care Provider Unavailabl e Encounter Details Date Type Department Care Team (Late st Contact Info) Description 01/07/2023 Orders Only [facility] [place] [id number] Barbara Bess MD [address] [place] [phone] Social History Tobacco Use Types Packs/Day Years [...] AM EST Narrative [facility] - 01/17/2023 1:28 PM EDT Requesting Provider: GIOVANNA Chaney Specimen = [id number] us Barbara Bess MD PATHOLOGY ORDERABLES Final Resul t [facility] [address] [place] [address] documented in this encounter Visit Diagnoses Not on filedocumented in this encounter
--- OUTSIDE RECORDS SUMMARY | 2025-09-10 08:40 | XMS_ITS | Clinical Summary ---
Author Organization [facility] Address [address] [place] [address] Care Team Providers Care Consumer Loan Specialist Name Role Phone Kai Shea MD Primary Care Provider [phone] Jessica Perales DO Unavailable [phone] Allergies No known active allergies Medications atorvastatin [...] 07/21/2025 Immunizations Immunization Administration Dates Next Due [employer] COVID-19 Vaccine (Purple Cap) 12 + 01/16/2021,12/24/2020 [...] drink first t vane in the morning (EYE-HAT FINISHING MATERIALS PREPARER) to steady your nerves or to get rid of a hangover? 0 05/05/2024 CAGE Questionnaire Score 0 024 Utilities Answer Date Recorded In the past 12 months has th [employer] electric, gas, oil, or water company threatened [...] or (1 - 1-dose 75+ series) 2025 ATR-WORAS-26 Vaccine (4 - 2024- season) 2025 10/08/2021, [...] LAB BLOOD ORDERABLES Final Result [facility] [address] [place] [phone] from Last 3 Months or Most Recently Relevant to Health Maintenance Insurance MEDICARE [facility] Advance Directives Documents on File Type Date Recorded Patient Accounting Software Specialist Expl anation Advance Directives and Living Will 05/04/2024 2:43 PM patient does not hav e an AD * Full Code (Latest Code Status on File) Date Activated Date Inactivated Comments 05/03/2024 10:21 PM 05/05/2024 2:20 PM Question Answer Comments Patient has decision-making capacity? Yes Care Teams Consumer Loan Specialist Relationship Specialty Start Date End Date Kai Shea MD [address] [place] [address] PCP - General 03/13/21 Jessica Perales DO [address] [place] [address] Resident Neurology 06/16/21
--- OUTSIDE RECORDS SUMMARY | 2025-09-10 08:40 | XMS_ITS | Encounter Summary ---
Author Organization [place] [address] Care Team Providers Care Low Pressure Kettle Operator Name Role Phone Unavailable Primary Care Provider Unavailabl e Encounter Details Date Type Department Care Team (Late st Contact Info) Description 01/07/2023 Orders Only [facility] [place] [phone] Barbara Bess MD [address] [place] [phone] Social History Tobacco Use Types Packs/Day Years [...] Narrative [facility] - 01/24/2023 5:22 PM EDT Requesting Provider: GIOVANAN Chaney Specimen = [id number] us Barbara Bess MD PATHOLOGY ORDERABLES Final Resul t [facility] [address] [place] [address] documented in this encounter Visit Diagnoses Not on filedocumented in this encounter
--- OUTSIDE RECORDS SUMMARY | 2025-09-10 08:41 | XMS_ITS | Encounter Summary ---
Author Organization [facility] Address [address] [place] [address] Care Team Providers Care Judge Name Role Phone Kai Shea MD Primary Care Provider [phone] Jessica Perales DO Unavailable [phone] Encounter Details Date Type Department Care Team (Late st Contact Info) Description 09/17/2021 Lab Requisition [facility] [address] [place] [address] Mar Diaz MD [address] [facility] [address] [place] [phone] Decreased white blood cell count, unspecified Social [...] AM EST) Case Report Bone Marrow Case: [id number] Authorizing Provider: Mar Diaz MD Collected: 09/17/2021 0940 Ordering Location: [facility] Received: 09/17/2021 0940 Pathologist: Jen Tesfaye MD Specimen: Bone Marrow Biopsy, [id number] 09/21/2021 1:36 PM EST [facility] Final Diagnosis PERIPHERAL BLOOD AND BONE MARROW, POSTERIOR ILIAC CREST (PERIPHERAL SMEAR, ASPIRATE SMEAR, AND CORE BIOPSY): - KAPPA RESECTED PLASMA CELL NEOPLASM, 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 Correlation with complete radiologic and laboratory studies is required for final diagnosis. 09/21/2021 1:36 PM EST [facility] Clinical Information D72.819 - Decreased white blood cell count, unspecified [ICD-10-CM] 09/21/2021 1:36 PM EST [facility] CBC and Differential PERIPHERAL BLOOD: No results found for requested labs within last 200 hours. DIFFERENTIAL:No results found for requested labs within last 200 hours. Leukopenia with mild lymphopenia and mild neutropenia.Macro cytic, normocytic red blood cells without anemia. Adequate platelets.no circulating plasma cells. 09/21/2021 1:36 PM EST [facility] Bone Marrow Differential BONE MARROW DIFFERENTIAL: 200 cells Normal Patient Neutrophils 15-50 12 Metamyelocytes 4-19 19 Myelocytes 1-18 23 Promyelocytes 1-8 0 Blasts 0-2 0 Monocytes 0-5 1 Erythroid 16-38 26 Lymphocytes 3-24 5 Eosinophils 0-6 7 Basophils 0-2 1 Plasma cells 0-4 6 Other 09/21/2021 1:36 PM EST [facility] Bone Marrow Aspirate and Biopsy The bone marrow aspirate smears show several cellular marrow particles with maturing trilineage hematopoiesis. Myeloid precursors are maturing . Blasts are not increased. Erythropoiesis is booster station operator. Plasma cells are increased and account for [...] Gain of 11q/CCND1 09/21/2021 1:36 PM EST [facility] Gross Description A. [id number] Received along with a corresponding pathology report from [facility] are 19 slide(s) labeled outside case: [id number] collected on 01/08/2021. 09/21/2021 1:36 PM EST [facility] Note: A resident was involved in the service. I attest I examined the relevant preparations for the specimens and confirmed the diagnosis or interpretation. 09/21/2021 1:36 PM EST [facility] Bone Marrow Specimen from bone marrow obtained by biopsy / Unknown 09/17/2021 9:40 AM EST 09/17/2021 9:40 AM EST us Mar Diaz MD LAB PATHOLOGY ORDERABLES Rosa godinez Result [facility] [address] [place] [address] documented in this encounter Visit Diagnoses Diagnosis Decreased white blood cell count, unspecified documented in this encounter Additional Health Concerns Assessment Noted Time A fall risk assessment has been complete d for the patient 2021 1:47 PM EDT documented as of this encounter Care Teams Judge Relationship Specialty Start Date End Date Kai Shea MD [address] [place] [address] PCP - General 03/13/21 Jessica Perales DO [address] [place] [address] Resident Neurology 06/16/21 documented as of this encounter
--- OUTSIDE RECORDS SUMMARY | 2025-09-10 08:41 | XMS_ITS | Encounter Summary ---
Author Organization [place] [address] Care Team Providers Care Critical Care Transport Nurse Name Role Phone Unavailable Primary Care Provider Unavailabl e Encounter Details Date Type Department Care Team (Late st Contact Info) Description 01/07/2023 Orders Only [facility] [place] [phone] Barbara Bess MD [address] [place] [phone] Social History Tobacco Use Types Packs/Day Years [...] Narrative [facility] - 01/16/2023 11:22 AM EDT Requesting Provider: GIOVANNA Chaney Specimen = [id number] us Barbara Bess MD PATHOLOGY ORDERABLES Final Resul t Performing Organization Address City/State/[facility] Co de Phone Number [facility] [address] [place] [address] documented in this encounter Visit Diagnoses Not on filedocumented in this encounter
--- OUTSIDE RECORDS SUMMARY | 2025-09-10 08:41 | XMS_ITS | Encounter Summary ---
Author Organization [facility] Address [address] [place] [address] Care Team Providers Care Manufacturing Recruiter Name Role Phone Kai Shea MD Primary Care Provider [phone] Jessica Perales DO Unavailable Encounter Details Date Type Department Care Team (Late st Contact Info) Description 01/15/2025 Lab Requisition [facility] [address] [place] [address] Sara Alegre [address] [place] [address] Encounter for general adult medical examination without [...] drink first t vane in the morning (EYE-PSYCHOLOGY PROFESSOR) to steady your nerves or to [...] LAB HEMATOLOGY METHOD 01/16/2025 4:[address] [facility] Specimen Source, Body Fluid LAB HEMATOLOGY METHOD 01/16/2025 4:[address] [facility] Clinical Diagnosis, Body Fluid Joint effusion LAB HEMATOLOGY METHOD 01/16/2025 4:[address] [facility] Interpretation , Body Fluid Acute inflammatory cells; correlate with Gram stain/culture and/or crystal analysis. A resident was involved in the service. I attest I examined the relevant preparations for the specimens and confirmed the diagnosis or interpretation. 01/16/2025 4:[address] [facility] Pathologist Signature, Body Fluid 01/16/2025 4:[address] [facility] Comment:Reviewed by: Isabel Donohue MD LAB CP ASR DISCLAIMER Yes 01/16/2025 4:[address] [facility] Joint Fluid 01/15/2025 12:1 0 PM EDT 01/15/2025 2:41 PM EDT us Sara Codey LAB BODY FLUIDS AND STOOLS ORDER MARYLIN Final Result [facility] [address] [place] [address] * (ABNORMAL) Joint Fluid Crystals (01/15/2025 12:10 PM EDT) Crystals, Joint Fluid Calcium Pyrophosphate Crystals Present(A) No Crystals Present 01/15/2025 7:[address] [facility] Joint Fluid 01/15/2025 12:1 0 PM EDT 01/15/2025 2:[address] [facility] - 01/15/2025 7:55 PM EDT Under compensated polarized light microscopy rhomboidal positively birefringent crystals are seen consistent with Calcium Pyrophosphate. The presence of steroid crystals may result in a false positive. Correlate results with recent history up to 2 months of steroid injection. Sara Guy LAB BODY FLUIDS AND STOOLS ORDER MARYLIN Final Result [facility] [address] [place] [address] * (ABNORMAL) Body Fluid Cell Count w/ Diff (01/15/2025 12:10 PM EDT) Color, Body fluid Red LAB HEMATOLOGY METHOD 01/15/2025 7:[address] [facility] Appearance, Body fluid Cloudy(A) LAB HEMATOLOGY METHOD 01/15/2025 7:[address] [facility] Volume, Body fluid 4.0 cc LAB HEMATOLOGY METHOD 01/15/2025 7:[address] [facility] Fluid Container Specimen received in Sodium Heparin LAB HEMATOLOGY METHOD 01/15/2025 7:[address] [facility] Red Blood Cell Count, Body fluid 45,500 uL LAB HEMATOLOGY METHOD 01/15/2025 7:[address] [facility] Comment:Clumps present, coun t may be affected. Test performed by manual method. Total Nucleated Cell Count, Body fluid 75,000 uL LAB HEMATOLOGY METHOD 01/15/2025 7:[address] [facility] Comment:Clumps present, coun t may be affected. Test performed by manual method. Neutrophils %, Body fluid 93 % LAB HEMATOLOGY METHOD 01/15/2025 7:[address] [facility] Lymphocytes %, Body fluid 0 % LAB HEMATOLOGY METHOD 01/15/2025 7:[address] [facility] Monocytes/Macro phages %, Body fluid 7 % LAB HEMATOLOGY METHOD 01/15/2025 7:[address] [facility] Eosinophils %, Body fluid 0 % LAB HEMATOLOGY METHOD 01/15/2025 7:[address] [facility] Lining/Mesothel ial Cells %, Body fluid 0 % LAB HEMATOLOGY METHOD 01/15/2025 7:[address] [facility] Neutrophils Absolute (PMN), Body fluid 69,750 uL LAB HEMATOLOGY METHOD 01/15/2025 7:[address] [facility] Lymphocytes Absolute, Body fluid 0 uL LAB HEMATOLOGY METHOD 01/15/2025 7:[address] [facility] Monocytes/Macro phages Absolute, Body fluid 5,250 uL LAB HEMATOLOGY METHOD 01/15/2025 7:[address] [facility] Eosinophils Absolute, Body fluid 0 uL LAB HEMATOLOGY METHOD 01/15/2025 7:[address] [facility] Basophils Absolute, Body fluid 0 uL LAB HEMATOLOGY METHOD 01/15/2025 7:[address] [facility] Lining/Mesothel ial Cells Absolute, Body fluid 0 uL LAB HEMATOLOGY METHOD 01/15/2025 7:[address] [facility] Comment, Body fluid None LAB HEMATOLOGY METHOD 01/15/2025 7:[address] [facility] Comment:This is an appended report. These results have been appended to a previously preliminary verified report. Basophils %, Body fluid 0 % LAB HEMATOLOGY METHOD 01/15/2025 7:[address] [facility] Joint Fluid 01/15/2025 12:1 0 PM EDT 01/15/2025 2:41 PM EDT Sara Alegre LAB BODY FLUIDS AND STOOLS ORDERABLES NO SPECIMEN TYPE/SOURCE Final Result [facility] [address] [place] [address] documented in this encounter Visit Diagnoses Diagnosis [...] documented as of this encounter Care Teams Manufacturing Recruiter Relationship Specialty Start Date End Date Kai Shea MD [address] [place] [address] PCP - General 03/13/21 Jessica Perales DO [address] [place] [address] Resident Neurology 06/16/21 documented as of this encounter
--- OUTSIDE RECORDS SUMMARY | 2025-09-10 08:41 | XMS_ITS | Patient Health Record ---
Author Organization [facility] Address [address] [place], [place] [id number] Care Team Providers Care Semiconductor Wafers Marker Name Role Phone Nas Shea Primary Care Provider Velez Jessie Unavailable [phone] Kris Farida Unavailable [phone] Allergies No Known Allergies Results Component Value Reference Range Notes P-Hemoglobin A1C Reviewed date:02/07/2025 08:17:27 AM Interpretation: Performing Lab: Notes/Report: Test performed by [employer] [facility] [address], [place] [address] Rentao Cobb MD, Coatings Inspector CLIA: [id number] Hemoglobin A1C 6.9 <5.7 % The following HbA1c ranges recommended by the [place] Diabetes Association (ADA) may be used as an aid in the diagnosis of diabetes mellitus. HbA1c Suggested Diagnosis >=6.5% Diabetic 5.7% - 6.4% Pre-Diabetic <5.7% Non-Diabetic P-TSH Reviewed date:02/07/2025 08:17:27 AM Interpretation: Performing Lab: Notes/Report: Test performed by [employer] [facility] [address], [place] [address] Renato Cobb MD, Coatings Inspector CLIA: [id number] TSH 2.88 0.43-5.25 mU/L Estimated Average Glucose Reviewed date:02/07/2025 08:17:27 AM Interpretation: Performing Lab: Notes/Report: Test performed by [employer] [facility] [address] [place] [address] Renato Cobb MD, Coatings Inspector IA: [id number] Estimated Average Glucose (eAG) 151 Estimated Average Glucose (eAG) is calculated using the equation eAG = (28.7 x HbA1c) - 46.7 based on the guidelines established by the ADA. If the patient has certain diseases including kidney disease, sickle cell anemia, thalassemia, or is taking medications such as dapsone, erythropoietin, or iron, eAG should not be evaluated. H-CBC Reviewed date:06/10/2025 09:40:54 AM Interpretation: Performing [...] 86 Performing Lab: Notes/Report: Test performed by [employer] [facility] [address] [facility] , [address], [place] [address] Renato Cobb MD, Coatings Inspector CLIA: [id number] Sodium 142 135-145 mmol/L Potassium 4.4 3.5-5.3 [...] 48 Performing Lab: Notes/Report: Test performed by [employer] [employer] [address] [place] [address] , [address], [place] [address] Renato Cobb MD, Coatings Inspector CLIA: [id number] Cholesterol 93 <200 mg/dL Triglycerides 84 <150 [...] Interpretation:4.19 Performing Lab: Notes/Report: Test performed by [employer] [address] [place] [address] , [place] [address] Renato Cobb MD, Coatings Inspector CLIA: [id number] TSH 4.19 0.43-5.25 mU/L P-Microalbumin/Creatinine, R andom Urine Sample Reviewed date:07/04/2025 08:31:36 AM Interpretation:A/C 44 Performing Lab: Notes/Report: Test performed by [employer] [address] [place] [address] , [address], [place] [address] Renato Cobb MD, Coatings Inspector CLIA: [id number] Albumin/Creatinine Ratio, Urine 44 0-30 ug/m g Microalbumin, Urine, Random 5.6 Creatinine, Urine 128.0 H-CBC Reviewed date:01/02/2025 08:41:58 AM Interpretation: Performing [...] Interpretation:Normal Performing Lab: Notes/Report: Test performed by [employer], [address] , [address], [place] [address] Renato Cobb MD, Coatings Inspector CLIA: [id number] Cholesterol 128 <200 mg/dL Triglycerides 147 <150 [...] Interpretation:4.34 Performing Lab: Notes/Report: Test performed by [employer] [address] , [address] , [place] [address] Renato Cobb MD, Coatings Inspector CLIA: [id number] PSA 4.34 <4.00 ng/mL Please note this is an ultrasensitive PSA assay with a lower limit of detection of 0.014 ng/mL. This test is performed by the [employer] ECLIA methodology. Values obtained with different assay methods or kits cannot be directly compared. P-TSH Reviewed date:10/20/2024 11:28:50 AM Interpretation:Normal Performing Lab: Notes/Report: Test performed by [employer] [address], [place] [id number] Renato Cobb MD, Coatings Inspector CLIA: [id number] TSH 2.38 0.43-5.25 mU/L Medications Medication SIG (Take, Route, Frequency, Duration) Notes Start Date End Date Status Levothyroxine Sodium 75 MCG 1 tab(s) orally once a day; Duration: 90 days Active Tamsulosin HCl 0.4 mg 1 capusle orally o nce a day; Duration: 90 days Active Accu-Chek Softclix Lancets - check glucose once a day; Duration: 100 days 07/24/2025 Active traZODone HCl 50 MG 1/2-1 tablet at bedtime as needed Orally Once a day; Duration: 30 days Active Atorvastatin Calcium 40 MG 1 tablet at bedtime Orally Once a day; Duration: 90 days Active Omeprazole 40 mg 1 capsule orally onc e a day; Duration: 90 days Active Aspirin 81 81 MG 1 tablet Orally Once a day; Duration: 90 days Active Jardiance 10 MG 1 tablet Orally Once a day; Duration: 90 days Active Accu-Chek Strips daily; Duration: 100 days 07/24/2025 Active Losartan Potassium 25 MG 1 tablet Orally twice a day Active Lasix 40 MG 1 tablet Orally ever y other day Not-Taking Accu-Chek Guide w/Device once a day E11.59 07/24/2025 Active Lasix 20 MG 1 tablet Orally [...] W/U Status Risk Notes Problem Coronary arteriosclerosis (17110696) 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) Active confirmed Problem Insomnia (225781429) Insomnia (G47.00) Active confirmed Problem History of circulatory system disease (599112558) History of ASCVD (Z86.79) Active confirmed Problem Essential hypertension (61196686) Essential hypertension (I10) Active confirmed Problem Diabetes mellitus with neuropathy (327476919) Diabetes mellitus with neuropathy (E11.40) Active confirmed Problem Benign prostatic hyperplasia (973596566) BPH (benign prostatic hyperplasia) (N40.0) Active confirmed Problem Peripheral neuropathy (808060127) Peripheral neuropathy (G62.9) Active confirmed Problem Hearing loss (06975462) Hearing loss (H91.90) Active confirmed Problem Chronic tension-type headache (122433188) Chronic tension-type headache, not intractable (G44.229) Active confirmed Problem Chronic pain syndrome (117137934) Chronic pain syndrome (G89.4) Active confirmed Problem Chronic atrial fibrillation (658545884) Chronic atrial fibrillation (I48.2) Active confirmed Problem Hyperlipidemia due to type 2 diabetes mellitus (disorder) (786455637757702) Hyperlipidemia associated with type 2 diabetes mellitus (E11.69) Active confirmed Problem Diabetes mellitus (82018481) Diabetes mellitus (E11.9) Active confirmed Problem Gastroesophageal reflux disease (897112254) GERD without esophagitis (K21.9) Active confirmed Problem Unsteady gait (15971000) Unsteady gait (R26.81) Active confirmed Problem Gastroesophageal reflux disease without esophagitis (067439483) Gastroesophageal reflux disease without esophagitis (K21.9) Active confirmed Problem Acquired hypothyroidism (150880408) Acquired hypothyroidism (E03.9) Active confirmed Problem Cardiac pacemaker in situ (554702448) Pacemaker (Z95.0) Active confirmed Problem Lower urinary tract symptoms due to benign prostatic hypertrophy (62473207307002) Benign non-nodular prostatic hyperplasia with lower urinary tract symptoms (N40.1) Active confirmed Problem Displacement of lumbar intervertebral disc without myelopathy (38885071) Bulging lumbar disc (M51.26) Active confirmed Problem Cardiomyopathy (27403228) Cardiomyopathy (I42.9) Active confirmed Problem Multiple myeloma (929365494) Multiple myeloma (C90.00) Active confirmed Problem Dyslipidemia (383957487) Dyslipidemia (E78.5) Active confirmed Problem Skin ulcer (disorder) (70298190) Skin ulcer, limited to breakdown of skin (L98.491) Active confirmed Problem Restless legs (63772547) RLS (restless legs syndrome) (G25.81) Active confirmed Problem Peripheral circulatory disorder associated with diabetes mellitus (867227655) 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) Active confirmed Problem Lumbar spondylosis with myelopathy (17111425) Lumbar spondylosis with myelopathy (M47.16) Active confirmed Problem Significant coronary bypass graft disease (719377046) Coronary artery disease involving coronary bypass graft of [place] heart without angina pectoris (I25.810) Active confirmed Problem Chronic atrial fibrillation (721988791) Chronic atrial fibrillation (I48.20) Active confirmed Problem Automatic implantable cardiac defibrillator in situ (875242183) Cardiac defibrillator in place (Z95.810) Active confirmed Problem Monoclonal gammopathy of uncertain significance (disorder) (826918780) 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) Active confirmed Problem Pseudogout (967979396) Pseudogout (M11.20) Active confirmed Vital Signs Heart Rate 71 /min 07/02/2025 Blood pressure diastolic 82 mm Hg 07/02/2025 Height 72 in 07/02/2025 Blood pressure systolic 130 mm Hg 07/02/2025 Weight 193.6 lbs 07/02/2025 BMI 26.25 kg/m2 07/02/2025 Encounters Encounter Location Date [facility] [id number] [facility] Nas Shea Type 2 diabetes mellitus [...] C90.00 and Screening for prostate cancer Z12.5 [facility] [address] [place] [id number] 01/21/2025 Jessie Velez Septic arthritis of knee M00.9 and Abrasions of multiple sites T07.XXXA [address] [id number] 02/05/2025 R Jesus [place] 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.59 ; Staphylococcal arthritis of right knee M00.061 ; Acquired hypothyroidism E03.9 ; Multiple myeloma C90.00 ; Diabetes mellitus with neuropathy E11.40 ; Dyslipidemia E78.5 ; Essential hypertension I10 ; Cardiomyopathy I42.9 and BMI 25.0-25.9,adult Z68.25 [facility] [address] [place] [address] [place] [id number] 03/19/2025 Jessie Velez Edema leg R60.0 ; [...] hyperplasia) N40.0 and Chronic atrial fibrillation I48.20 [facility] [address] [facility] [address] [id number] 03/26/2025 Jessie Velez Hypotension I95.9 ; Edema of both legs R60.0 and BMI 28.0-28.9,adult Z68.28 [facility] [address] [id number] 04/25/2025 R Jesus Monse Pacemaker Z95.0 ; Sk in tear of forearm without complication S51.819A ; Cardiomyopathy I42.9 ; History of ASCVD Z86.79 ; BPH (benign prostatic hyperplasia) N40.0 ; Diabetes mellitus E11.9 ; Peripheral neuropathy G62.9 ; Multiple myeloma C90.00 and BMI 25.0-25.9,adult Z68.25 [facility] [address] [id number] 06/05/2025 Farida Crowdy Multiple myeloma C90 .00 ; Orbital cellulitis, right H05.011 and BMI 26.0-26.9,adult Z68.26 [facility] [address] [id number] 06/07/2025 Farida Crowdy Orbital cellulitis, right H05.011 ; Cutaneous abscess of face L02.01 and BMI 27.0-27.9,adult Z68.27 [facility] [address] [id number] 06/13/2025 R Jesus Monse Orbital cellulitis, right H05.011 ; Cutaneous abscess of face L02.01 and BMI 26.0-26.9,adult Z68.26 [facility] [address] [place], [place] [id number] 07/02/2025 R Jesus Monse Adult general medica l examination Z00.00 ; Essential hypertension I10 ; Dyslipidemia E78.5 ; Acquired hypothyroidism E03.9 ; MGUS (monoclonal gammopathy of unknown significance) D47.2 ; Peripheral neuropathy G62.9 ; Multiple myeloma C90.00 ; 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.59 ; Insomnia G47.00 and BMI 26.0-26.9,adult Z68.26 [facility] [address] [place], [place] [id number] 10/19/2024 R Jesus Monse ASCVD (arteriosclero tic cardiovascular disease) I25.10 [facility] [address] [place] [id number] 10/20/2024 R Jesus Monse [facility] [address] [place] [id number] 01/03/2025 R Jesus Monse [facility] [address] [place] [id number] 02/07/2025 R Jesus Monse [facility] [address] [place] [id number] 03/19/2025 R Jesus Monse [facility] [address] [place] [id number] 05/21/2025 R Jesus Monse [facility] [place] [address] [place] [id number] 06/18/2025 R Jesus Monse [facility] [place] [address] [place], [place] [id number] 07/04/2025 R Jesus Monse [facility] [address] [place], [place] [id number] 07/19/2025 R Jesus Monse [facility] [address] [place], [place] [id number] 07/29/2025 R Jesus Monse Insomnia G47.00 ; BP H (benign prostatic [...] cardiovascular disease) (ICD-10 - I25.10) discussed with [facility] cardiology ; reviewed labs and ECHO 02/05/2025 [...] - E03.9) 07/29/2025 Dyslipidemia (ICD-10 - E78.5) 07/29/2025 Acquired hypothyroidism (ICD-10 - E03.9) 07/02/2025 MGUS [...] dr. Eason; currently on vacation from [place] 07/02/2025 Peripheral neuropathy (ICD-10 - G62.9) 07/02/2025 [...] [address], [place], [place], [id number], Insurance Providers Payer Name Payer Address Payer Phone Subscriber Number Group Number Insured Name Patient Relationship to Insured Coverage Start Date Coverage End Date MEDICARE PART B [address] [address] [place] Ar[place] [address] [phone] [id number] KEV DICK Self - patient is the insured [facility] [address] [place] [address] [id number] KEV DICK Self - patient is the [...] Cardiac Pacemaker 04/24/2025 Hospitalization History Reason Date(Month/Year) [facility] UTC - Fall 11/14/2023 [facility]-tachycardia 07/02-12/2019 Left heart cath/[place]/ normal flow of revascularized vessels 02/2017 [facility] pancreatitis 09/02/2016 [facility] ER-Afib 01/2016 C-scope - Dr. Kimball 09/2013 [facility] ER-suture to pinky finger of left mac[place] nd 09/25/2009
--- OUTSIDE RECORDS SUMMARY | 2025-09-10 08:41 | XMS_ITS | Clinical Summary ---
Author Organization [facility] Address [address] [place] [address] Care Team Providers Care Gum Rolling Machine Tender Name Role Phone Kai Shea [...] 07/31 Potentially Unsafe Housing Conditions Not on jesneia e 08/11/2023 Family and Community Support Answer [...] 2 - PCV20 or PCV21) 01/20/2020 01/19/2019 INFLUENZA VACCINE 05/31/2025 RSV Vaccine - Adults (1 - 1- dose 75+ series) 2025 COVID-19 Vaccine ( - 2024- season) 2025 10/08/2021, 01/16/2021, 12/24/2020 TDAP/TD VACCINES (3 - Td or Tdap) 03/17/2033 023, 01/19/2019 Insurance MEDICARE A & B [employer] Care Teams Gum Rolling Machine Tender Relationship Specialty Start Date End Date Kai Shea MD [address] [place] [facility] [address] [facility] [address] [place] [id number] PCP - General Family Medicine 04/05/23
--- OUTSIDE RECORDS SUMMARY | 2025-09-10 08:41 | XMS_ITS | Encounter Summary ---
Author Organization [place] [address] Care Team Providers Care Fur Examiner Name Role Phone Unavailable Primary Care Provider Unavailabl e Encounter Details Date Type Department Care Team (Late st Contact Info) Description 01/07/2023 Orders Only [facility] [id number] Barbara Bess MD [address] [place] [phone] Social History Tobacco Use Types Packs/Day Years [...] Procedure Name Priority Date/Time Associated Diagnosis Comments Everyday.me STANDARD LEUKEMIA/LYMPHOMA PANEL Routine 01/07/2023 9:45 AM EST documented in this encounter Results * NEOGENOMICS STANDARD LEUKEMIA/LYMPHOMA PANEL (01/07/2023 9:45 AM EST) 01/07/2023 9:45 AM EST Narrative [facility] - 01/10/2023 3:22 PM EDT Requesting Provider: GIOVANNA Chaney Specimen = [id number] us Barbara Bess MD PATHOLOGY ORDERABLES Final Resul t Performing Organization Address City/State/[facility] Co de Phone Number [facility] [address] [place] [address] documented in this encounter Visit Diagnoses Not on filedocumented in this encounter
[2025-09-10 09:08] LABS: Hematocrit 40.2 % (42.0-52.0); Hemoglobin 12.4 g/dL (14.1-18.0); Immature Granulocytes % 0.3 %; Mean Corpuscular HGB Conc 30.8 g/dL (31.8-35.4); Mean Corpuscular Hemoglobin 28.3 pg (27.0-31.2); Mean Corpuscular Volume 91.8 fl (80-94); Nucleated Red Blood Cells % 0 %; Platelet Count 119 K/mm3 (142-424); Red Blood Count 4.38 M/mm3 (4.60-6.20); Red Cell Distribution Width-SD 53.6 fL; White Blood Count 3.7 K/mm3 (4.8-10.8)
[2025-09-10 09:28] LABS: Alanine Aminotransferase 25 U/L (12-78); Albumin Level 4.2 g/dl (3.5-5.0); Albumin/Globulin Ratio 1.4 (1.1-1.8); Alkaline Phosphatase 99 U/L (38-126); Anion Gap 10.8 mEq/L (5-15); Aspartate Amino Transferase 26 U/L (17-59); Bilirubin,Total 0.9 mg/dl (0.2-1.3); Blood Urea Nitrogen 21 mg/dl (9-20); Calcium 8.7 mg/dl (8.4-10.2); Carbon Dioxide 28 mmol/L (22.0-30.0); Chloride 105 mmol/L (98-107); Creatinine,Serum 0.90 mg/dl (0.66-1.25); Estimated Glomerular Filt Rate 82 ml/min (>60); GFR (African American) 100 ML/MIN (>60); Globulin 2.9 g/dL (1.3-3.2); Glucose 197 mg/dl (74-100); Potassium 3.8 mmoL/L (3.5-5.1); Sodium 140 mmol/L (136-145); Total Protein,Serum 7.1 g/dl (6.3-8.2)
--- NOTE | 2025-09-10 13:02 | XR_ITS ---
FINAL REPORT CLINICAL HISTORY: Diarrhea COMPARISON: None FINDINGS: The lungs are grossly clear. There is no evidence of effusion, pneumothorax or other significant pleural disease. Left-sided pacer is present. The patient is status post CABG. The heart size is normal. The abdomen exam demonstrates the visualized intestinal gas pattern to be unremarkable without evidence to suggest obstruction. There is no free intraperitoneal air. No abdominal radiopacities are seen in the abdomen. Extensive vascular calcifications in the pelvis. The patient is status post cholecystectomy. Compression fracture noted in the lower lumbar spine. IMPRESSION: No bowel obstruction or free air. Reviewed, Interpreted and Dictated by Katlin Chiang MD Transcribed by Maddie Nevarez Authenticated and [facility]
[2025-09-10 13:59] LABS: Microscopic, Urine URINE MICROSCOPIC (MICROSCOPIC)
[2025-09-10 14:54] LABS: Bilirubin,Urine Negative (Negative); Color,Urine YELLOW (Yellow); Glucose,Urine (UA) 3+ (Negative); Ketones,Urine Negative (Negative); Leukocyte Esterase,Urine Negative (Negative); PH,Urine 6.0 (5.0-8.5); Protein,Urine TRACE (Negative); Specific Gravity, Urine 1.020 (1.005-1.030); Urobilinogen,Urine 0.2 EU/dl (0.2)
[2025-09-10 15:08] LABS: WBC,Urine Occasional #/hpf (0-3)
[2025-09-10 15:09] LABS: Bacteria,Urine Trace /lpf; Mucus,Urine 1+ /lpf
[2025-09-11 15:12] LABS: Albumin 3.9 g/dL (2.9-4.4); Alpha-1-Globulin 0.2 g/dL (0.0-0.4); Alpha-2-Globulin 0.5 g/dL (0.4-1.0); Gamma Globulin 1.0 g/dL (0.4-1.8)
[2025-09-12 15:12] LABS: Immunoglobulin A, Qn 66 mg/dL (61-437); Immunoglobulin G, Qn 1107 mg/dL (603-1613); Immunoglobulin M, Qn 40 mg/dL (15-143)
== END 2025-09-10 23:59 | disposition home or self-care (01) ==
LOC: INF 08:36 → RAD 12:59
PROVIDERS: PCP Family Medicine; Visit Provider Internal Medicine Medical Oncology
DX: C90.00 Multiple myeloma not having achieved remission (principal); I50.23 Acute on chronic systolic (congestive) heart failure; I48.91 Unspecified atrial fibrillation; I25.10 Atherosclerotic heart disease of native coronary artery without angina pectoris; Z95.810 Presence of automatic (implantable) cardiac defibrillator; D47.2 Monoclonal gammopathy; E11.9 Type 2 diabetes mellitus without complications
CPT/HCPCS: 36415; 74021; 80053; 81001; 82784; 83521; 84155; 84165; 85025; 86334

== ENCOUNTER 2025-09-13 14:00 | Outpatient (RCR) | payer MEDICARE, BC, SELFPAY ==
--- NOTE | 2025-09-03 14:57 | HMH.RHREAS ---
Rehab Reassessment Rehab OP Re-assessment Start: 09/03/25 11:02 Freq: Status: Active Protocol: Document 09/03/25 11:06 SIMRAN (Rec: 09/03/25 14:57 SIMRAN [id number]) E-signed By Carl Pena, PT Lower Extremity Functional Index Activities Today, do you or would you have any difficulty at all with: a.Any of your usual Quite a bit of difficulty work, housework or school activities b. Your usual Quite a bit of difficulty hobbies, recreational or sporting activities c. Getting into or Quite a bit of difficulty out of the bath d. Walking between Moderate difficulty rooms e. Putting on your Moderate difficulty shoes or socks f. Squatting Quite a bit of difficulty g. Lifting an object Quite a bit of difficulty , like a bag of groceries from the floor h. Performing light Moderate difficulty activities around your home i. Performing heavy Extreme difficulty or unable to perform activity activities around your home j. Getting into or Quite a bit of difficulty out of a car k. Walking 2 blocks Extreme difficulty or unable to perform activity l. Walking a mile Extreme difficulty or unable to perform activity m. Going up or down Extreme difficulty or unable to perform activity 10 stairs (about 1 flight of stairs) n. Standing for 1 Extreme difficulty or unable to perform activity hour o. Sitting for 1 Moderate difficulty hour p. Running on even Extreme difficulty or unable to perform activity ground q. Running on uneven Extreme difficulty or unable to perform activity ground r. Making sharp Extreme difficulty or unable to perform activity turns while running fast s. Hopping Extreme difficulty or unable to perform activity t. Rolling over in Moderate difficulty bed LEFI Score Lower Extremity 16 Functional Index Score Rehab Re-assessment Subjective Subjective Pt reports that he is not improved at this point in his care. Reports a 48 hour pain average 5/10, mostly to his R knee. Pt reports that he is still using the FWW at all times. Pt reports that he would like to continue PT because he has not gotten to regularly attend appointments at this point. Objective Objective Notes LEFS: 16 (16 on IE) MMT: - b hip flexion 3+/5 - B hip abd 3+/5 - B hip add 3+/5 - B knee flexion/ext 4/5 Tandem Stance: 6s R, 7s L Gait: Symmetrical step length with increased foot clearance with FWW Assessment Progress Assessment Slower Than Expected Assessment Notes Pt presents for 30 day reassessment at this time. Pt's treatment sessions have consisted of LE strengthening, balance training, and transfer training. Pt has made improvements in his gait mechanics and his LE strength at this time, however he has not been able to attend enough visits to progress as needed. The pt's care is complicated by his being on hospice care out of town. Pt attends PT when able but his availability varies. Pt would benefit from continued skilled PT to help reach his remaining goals, prevent falls and return to his PLOF. PT Patient Goals PT Short Term In 4 weeks: Patient Goals 1. Patient will improve LEFS score to 25/80 to demonstrate improved functional mobility and increased independence with ADLs. NOT MET 2. Patient will improve strength of bilateral hip and knee complexes to 3+/5 globally to improve gait mechanics, improve static/dynamic balance and to decrease fall risk. MET 3. Patient will demonstrate improved balance by maintaining tandem stance for 30s with each foot placed forward, on an even surface, without upper extremity support to demonstrate a reduced fall risk. NOT MET 4. Patient will report a 48 hour average pain of 4/10 on the numeric pain rating scale to demonstrate improvement in quality of life and increased functional capacity. NOT MET 5. Patient will demonstrate increased step length and foot clearance during bilateral swing phases with a FWW or LRAD prn to demonstrate a decrease fall risk and improved community mobility. MET 6. Pt will demonstrate HEP compliance by completing prescribed HEP 4-5x/week. NOT MET PT Prop Worker Patient In 8 weeks: Goals 1. Patient will improve LEFS score to 34/80 to demonstrate improved functional mobility and increased independence with ADLs. NOT MET 2. Patient will improve strength of bilateral hip and knee complexes to 4-4+/5 globally to improve gait mechanics, improve static/dynamic balance and to decrease fall risk. NOT MET 3. Patient will demonstrate the ability to walk 150 ft with a SP cane in order to demonstrate improved functional mobility, decreased fall risk and improvements with community mobility. NOT MET 4. Patient will demonstrate improved balance by performing tandem walking on a stable surface for 10 feet without loss of balance or needed classroom assistant to demonstrate a reduced fall risk and improved community ambulation. NOT MET 5. Patient will demonstrate improved balance by maintaining tandem stance for 30s with each foot placed forward, on an unstable surface, without upper extremity support to demonstrate a reduced fall risk. NOT MET Plan Plan Continue as per initial POC, utilizing the following methods and activities. This progress note is being sent to the referring provider for an update on the pt's care. Frequency of Therapy 2/week Duration of Therapy 4 weeks Therapeutic Exercise Yes Including Home Exercise Program Manual Therapy Yes Techniques Neuromuscular Re- Yes education Therapeutic Yes Activities to Return to Previous Functional/Work Level Gait Training Yes ADL/Self Care Yes Education Thermal Modalities Yes Electrical Yes Stimulation Massage Yes Manual Lymphatic Yes Drainage Group Therapy for Yes Medicare Time and Billing Re-Eval Time 10 Re-Eval Billing 0 Units Charge for PT No reassessment? PHYSICIAN CERTIFICATION: I certify the specified therapy services for Kaleb Swan are required, authorized, and reviewed every 30 days.
== END 2025-09-13 23:59 | disposition home or self-care (01) ==
LOC: PT 14:00
PROVIDERS: PCP Family Medicine; Visit Provider Orthopaedic Surgery
DX: M17.0 Bilateral primary osteoarthritis of knee (principal)
CPT/HCPCS: 97110; 97112; 97116; 97530

== ENCOUNTER 2025-09-13 14:14 | Outpatient (CLI) | payer MEDICARE, BC, SELFPAY ==
[2025-09-13 22:45] LABS: C. difficile PCR (HMH) Negative (Neagtive)
== END 2025-09-13 23:59 | disposition home or self-care (01) ==
LOC: LAB 14:15
PROVIDERS: PCP Family Medicine; Visit Provider Internal Medicine Medical Oncology
DX: C90.00 Multiple myeloma not having achieved remission (principal)
CPT/HCPCS: 87493

== ENCOUNTER 2025-09-17 09:16 | Outpatient (CLI) | payer MEDICARE, BC, SELFPAY ==
--- NOTE | 2025-09-17 09:45 | CA_ITS ---
APPROVED REPORT EXAM: Comprehensive 2D, Doppler, and color-flow Echocardiogram Library Supervisor: Anastasiya Angeles, ALLISON, RVS Ht: 6 ft 0 in Wt: 203lbs BSA: 2.14 BP: 130/80 mmHg Indications: HFrEF, CM, CAD, AICD, CAD, HTN, HLD, Murmurs, Multiple myeloma 2D Dimensions IVSd 1.18 cm M: 0.6-1.2 LVEF (Visual) 33.80 % PWd 1.22 cm M: 0.6 - 1.2 LA Volume 147.10 mL LVDd 5.81 cm M: 4.2 - 5.9 LA Volume Index 68.74 mL/m2 (M/F) 16-34 LVDs 4.86 cm M: 2.5 - 4.0 EF AP4 43.20 % Aortic Root 3.57 cm M: 3.1 - 3.7 GL Strain -13.0 % Left Atrium 5.62 cm M: 3.0 - 4.0 RVID Base (AP4) 3.69 cm (M/F) 2.5-4.1 LVOT 1.97 cm (M/F) 1.5-2.5 M-Mode Dimensions RVDd 2.10 cm (0.9-2.6) LVDd 5.81 cm (3.5-5.7) Ao Diam 3.59 cm (2.0-3.7) LVDs 4.84 cm (3.5-5.7) IVSd 0.95 cm (0.6-1.1) PWd 1.22 cm (0.6-1.1) EF (Teich) 42.20% EPSs 1.36 cm FS 19.60% EDV (Teich) 189.70 mL TAPSE 1.27 (<1.7) ESV (Teich) 109.60 mL LV Diastology E Decel Time 144 (160-240 msec) E/A Ratio 2.0 MED E' 4.1 (>= 7 cm/sec) MED A' 1.70 cm/s E'/MED E' Ratio 19.73 (<= 14) LAT E' 8.4 (>= 10 cm/sec) LAT A' 2.30 cm/s E/LAT E' Ratio 9.63 (<= 14) Aortic Valve LVOT Max 73.0 (70-110 cm/s) LEFTY Index 0.62 cm2/m2 LVOT VTI 13.10 cm AoV Peak Pasha. 192.0 (50-130 cm/s) AI PHT 526.00 ms AO Peak GR. 14.10 mmHg AO Mean GR. 7.30 (<5 mmHg) AO VTI 30.0 (18-25 cm) LEFTY (VTI) 1.33 (2.5-4.5 cm2) Mitral Valve MV E Max Pasha. 81.0 (40-130 cm/s) MV A Velocity 41.0 (40-130 cm/s) E/A Ratio 1.95 MV Decel. Time 144 (160-240 ms) Tricuspid Valve TR P. Velocity 214.00 cm/s RAP Estimate 10.00 mmHg RVSP 28.30 mmHg Left Ventricle The left ventricle is normal size. Left ventricular systolic function is mildly reduced. There is increased left ventricular wall thickness. There is mild global hypokinesis. The left ventricular diastolic function is normal. LVEF is 40-45%. Right Ventricle The right ventricle is normal size. The right ventricular systolic function is normal. There is a device lead in the right ventricle. Atria Left atrium is moderately dilated. Right atrium is mildly dilated. There is no color Doppler evidence of interatrial shunt. Aortic Valve The aortic valve is mildly thickened. There is no hemodynamically significant aortic valvular stenosis. Mild aortic regurgitation is present. Mitral Valve The mitral valve is mildly thickened. No evidence of mitral valve stenosis. Mild mitral regurgitation is present. Tricuspid Valve The tricuspid valve leaflets are thin and pliable. Mild tricuspid regurgitation. RVSP is 20-25 mmHg. Pulmonic Valve The pulmonary valve is grossly normal in structure. Mild to moderate pulmonic valve regurgitation is present. Great Vessels The aortic root is normal in size. IVC is normal in size and collapses >50% with inspiration. Pericardium There is no pericardial effusion. Other Information Study Quality: Technically Difficult Conclusion Mild reduction in LV systolic function (LVEF 40-45%). Biatrial dilation. Mild to moderate MI. Mild AI, mild MR, mild TR. Electronically signed by : Ronda Little MD 09/23/2025 23:48:20
== END 2025-09-17 23:59 | disposition home or self-care (01) ==
LOC: RT 09:17
PROVIDERS: PCP Family Medicine; Visit Provider Physician Assistant
DX: I08.8 Other rheumatic multiple valve diseases (principal); I11.0 Hypertensive heart disease with heart failure; I50.23 Acute on chronic systolic (congestive) heart failure; I48.91 Unspecified atrial fibrillation; E11.42 Type 2 diabetes mellitus with diabetic polyneuropathy; I25.10 Atherosclerotic heart disease of native coronary artery without angina pectoris; D47.2 Monoclonal gammopathy; I42.9 Cardiomyopathy, unspecified; E78.5 Hyperlipidemia, unspecified; Z95.810 Presence of automatic (implantable) cardiac defibrillator
CPT/HCPCS: 93306

== ENCOUNTER 2025-09-23 08:42 | Outpatient (CLI) | payer MEDICARE, BC, SELFPAY ==
--- OUTSIDE RECORDS SUMMARY | 2025-09-23 08:46 | XMS_ITS | Encounter Summary ---
Author Organization Healthcare Address [address] [place] [address] Care Team Providers Care Diamond Setter Name Role Phone Kai Shea MD Primary Care Provider [phone] Jessica Perales DO Unavailable [phone] Encounter Details Date Type Department Care Team (Late st Contact Info) Description 11/05/2024 Orders Only [place] [facility] [address] [place] [address] Rome York, DO [address] [phone] Neuropathy Social History Tobacco Use Types Packs/Day [...] a nursing home (including now)? No 05/04/2024 CAGE ASSESSMENT [...] drink first t vane in the morning (EYE-DAIRY CHEMIST) to steady your nerves or to get [...] Care Team (Late st Contact Info) Description 11/26/2025 3:30 PM EST Office Visit [place] [facility] [address] [place] [address] Debi Obando MBBS [address] [place] [address] documented as of this encounter Visit Diagnoses Diagnosis Neuropathy Mononeuritis of unspecified site documented in this encounter Additional Health Concerns Assessment Noted Time A fall risk assessment has been complete d for the patient 12/19/2023 3:03 PM EST A Body Mass Index follow-up plan has been documented for the patient 05/05/2024 11:32 AM EDT documented as of this encounter Care Teams Diamond Setter Relationship Specialty Start Date End Date Kai Shea MD [address] [place] [address] PCP - General 03/13/21 Jessica Perales DO [address] [facility] [address] [place] [address] Resident Neurology 06/16/21 documented as of this encounter
--- OUTSIDE RECORDS SUMMARY | 2025-09-23 08:46 | XMS_ITS | Encounter Summary ---
Author Organization Healthcare Address [address] [place] [address] Care Team Providers Care Traffic Monitor Specialist Name Role Phone Kai Shea MD Primary Care Provider [phone]- [phone] Jessica Perales DO Unavailable [phone] Encounter Details Date Type Department Care Team (Late st Contact Info) Description 01/15/2025 Lab Requisition [facility] [address] [place] [address] Sara Alegre [address] [place] [address] Encounter for general adult medical examination without [...] drink first t vane in the morning (EYE-ANALYTICAL LAB TECHNICIAN) to steady your nerves or to [...] Visit [place] [facility] [address], [address] [place] [address] Debi Obando, MBBS [address] [place] [address] documented as of this encounter Procedures Procedure [...] LAB HEMATOLOGY METHOD 01/16/2025 4:15 PM EDT [facility] Specimen Source, Body Fluid LAB HEMATOLOGY METHOD 01/16/2025 4:15 PM EDT [facility] Clinical Diagnosis, Body Fluid Joint effusion LAB HEMATOLOGY METHOD 01/16/2025 4:15 PM EDT [facility] Interpretation , Body Fluid Acute inflammatory cells; correlate with Gram stain/culture and/or crystal analysis. A resident was involved in the service. I attest I examined the relevant preparations for the specimens and confirmed the diagnosis or interpretation. 01/16/2025 4:15 PM EDT [facility] Pathologist Signature, Body Fluid 01/16/2025 4:15 PM EDT [facility] Comment:Reviewed by: Isabel Donohue MD LAB CP ASR DISCLAIMER Yes 01/16/2025 4:15 PM EDT [facility] Joint Fluid 01/15/2025 12:1 0 PM EDT 01/15/2025 2:41 PM EDT [employer] LAB BODY FLUIDS AND STOOLS ORDER MARYLIN Final Result Performing Organization Address [facility] Co de Phone Number [facility] [address] [place] [address] * (ABNORMAL) Joint Fluid Crystals (01/15/2025 12:10 PM EDT) Crystals, Joint Fluid Calcium Pyrophosphate Crystals Present(A) No Crystals Present 01/15/2025 7:55 PM EDT [facility] Joint Fluid 01/15/2025 12:1 0 PM EDT 01/15/2025 2:41 PM EDT Narrative [facility] - 01/15/2025 7:55 PM EDT Under compensated polarized light microscopy rhomboidal positively birefringent crystals are seen consistent with Calcium Pyrophosphate. The presence of steroid crystals may result in a false positive. Correlate results with recent history up to 2 months of steroid injection. [employer] LAB BODY FLUIDS AND STOOLS ORDER MARYLIN Final Result Performing Organization Address [facility] Co de Phone Number [facility] [address] [place] [address] * (ABNORMAL) Body Fluid Cell Count w/ Diff (01/15/2025 12:10 PM EDT) Color, Body fluid Red LAB HEMATOLOGY METHOD 01/15/2025 7:53 PM EDT [facility] Appearance, Body fluid Cloudy(A) LAB HEMATOLOGY METHOD 01/15/2025 7:53 PM EDT [facility] Volume, Body fluid 4.0 cc LAB HEMATOLOGY METHOD 01/15/2025 7:53 PM EDT [facility] Fluid Container Specimen received in Sodium Heparin LAB HEMATOLOGY METHOD 01/15/2025 7:53 PM EDT [facility] Red Blood Cell Count, Body fluid 45,500 uL LAB HEMATOLOGY METHOD 01/15/2025 7:53 PM EDT [facility] Comment:Clumps present, coun t may be affected. Test performed by manual method. Total Nucleated Cell Count, Body fluid 75,000 uL LAB HEMATOLOGY METHOD 01/15/2025 7:53 PM EDT [facility] Comment:Clumps present, coun t may be affected. Test performed by manual method. Neutrophils %, Body fluid 93 % LAB HEMATOLOGY METHOD 01/15/2025 7:53 PM EDT [facility] Lymphocytes %, Body fluid 0 % LAB HEMATOLOGY METHOD 01/15/2025 7:53 PM EDT [facility] Monocytes/Macro phages %, Body fluid 7 % LAB HEMATOLOGY METHOD 01/15/2025 7:53 PM EDT [facility] Eosinophils %, Body fluid 0 % LAB HEMATOLOGY METHOD 01/15/2025 7:53 PM EDT [facility] Lining/Mesothel ial Cells %, Body fluid 0 % LAB HEMATOLOGY METHOD 01/15/2025 7:53 PM EDT [facility] Neutrophils Absolute (PMN), Body fluid 69,750 uL LAB HEMATOLOGY METHOD 01/15/2025 7:53 PM EDT [facility] Lymphocytes Absolute, Body fluid 0 uL LAB HEMATOLOGY METHOD 01/15/2025 7:53 PM EDT [facility] Monocytes/Macro phages Absolute, Body fluid 5,250 uL LAB HEMATOLOGY METHOD 01/15/2025 7:53 PM EDT [facility] Eosinophils Absolute, Body fluid 0 uL LAB HEMATOLOGY METHOD 01/15/2025 7:53 PM EDT [facility] Basophils Absolute, Body fluid 0 uL LAB HEMATOLOGY METHOD 01/15/2025 7:53 PM EDT [facility] Lining/Mesothel ial Cells Absolute, Body fluid 0 uL LAB HEMATOLOGY METHOD 01/15/2025 7:53 PM EDT [facility] Comment, Body fluid None LAB HEMATOLOGY METHOD 01/15/2025 7:53 PM EDT [facility] Comment:This is an appended report. These results have been appended to a previously preliminary verified report. Basophils %, Body fluid 0 % LAB HEMATOLOGY METHOD 01/15/2025 7:53 PM EDT [facility] Joint Fluid 01/15/2025 12:1 0 PM EDT 01/15/2025 2:41 PM EDT Sara Alegre LAB BODY FLUIDS AND STOOLS ORDERABLES NO SPECIMEN TYPE/SOURCE Final Result [facility] [address] [place] [address] documented in this encounter Visit Diagnoses Diagnosis [...] documented as of this encounter Care Teams Traffic Monitor Specialist Relationship Specialty Start Date End Date Kai Shea MD [address] [place] [address] PCP - General 03/13/21 Jessica Perales DO [address] [facility] [address] [place] [address] Resident Neurology 06/16/21 documented as of this encounter
--- OUTSIDE RECORDS SUMMARY | 2025-09-23 08:46 | XMS_ITS | Encounter Summary ---
Author Organization [place] [address] Care Team Providers Care Public Safety Police Name Role Phone Unavailable Primary Care Provider Unavailabl e Encounter Details Date Type Department Care Team (Late st Contact Info) Description 01/07/2023 [facility] Only [facility] [place] [id number] Barbara Bess MD [address] [place] [phone] Social History Tobacco Use Types Packs/Day Years [...] EST) 01/07/2023 9:45 AM EST Narrative [facility] - 01/17/2023 1:28 PM EDT Requesting Provider: GIVOANNA Chaney Specimen = [id number] us Barbara Bess MD PATHOLOGY ORDERABLES Final Resul t [facility] [address] [place] [address] documented in this encounter Visit Diagnoses Not on filedocumented in this encounter
--- OUTSIDE RECORDS SUMMARY | 2025-09-23 08:46 | XMS_ITS | Encounter Summary ---
Author Organization [place] [address] Care Team Providers Care Yield Improvement Engineer Name Role Phone Unavailable Primary Care Provider Unavailabl e Encounter Details Date Type Department Care Team (Late st Contact Info) Description 01/07/2023 Orders Only [facility] [place] [id number] Barbara Bess MD [address] [place] [phone] Social History Tobacco Use Types Packs/Day Years [...] Procedure Name Priority Date/Time Associated Diagnosis Comments [employer] STANDARD LEUKEMIA/LYMPHOMA PANEL Routine 01/07/2023 9:45 AM EST documented in this encounter Results * NEOGENOMICS STANDARD LEUKEMIA/LYMPHOMA PANEL (01/07/2023 9:45 AM EST) 01/07/2023 9:45 AM EST Narrative [facility] - 01/10/2023 3:22 PM EDT Requesting Provider: GIOVANNA Chaney Specimen = [id number] us Barbara Bess MD PATHOLOGY ORDERABLES Final Resul t Performing Organization Address City/State/[facility] Co de Phone Number [facility] [address] [place] [address] documented in this encounter Visit Diagnoses Not on filedocumented in this encounter
--- OUTSIDE RECORDS SUMMARY | 2025-09-23 08:46 | XMS_ITS | Clinical Summary ---
Author Organization [facility] Address [address] [place] [address] Care Team Providers Care Brand Manager Name Role Phone Kai Shea MD Primary Care Provider [phone] Jessica Perales DO Unavailable [phone] Allergies No known active allergies Medications atorvastatin [...] 07/21/2025 Immunizations Immunization Administration Dates Next Due [employer] COVID-19 Vaccine (Purple Cap) 12 + 01/16/2021,12/24/2020 [...] place to sleep or slept in a detention (including now)? No 05/04/2024 PHQ-9 Answer Date [...] drink first t vane in the morning (EYE-BUHR DRESSER) to steady your nerves or to get [...] Visit [place] [facility] [address], [address]st [place] [address] Debi Obando, MARY [address] [place] [address] Health Maintenance Due Date Last Done Comments [...] or (1 - 1-dose 75+ series) 2025 CMY-XRAAD-16 Vaccine ( - 2024- season) 2025 10/08/2021, [...] Antibody Negative Negative 05/03/2024 5:39 PM EDT [facility] Blood Venous blood specimen / Unknown Venipuncture / Unknown 05/03/2024 4:48 PM EDT 05/03/2024 4:58 PM EDT Rome Dominguez MD LAB BLOOD ORDERABLES Final Result [facility] [address] [place] [phone] from Last 3 Months or Most Recently Relevant to Health Maintenance Insurance MEDICARE [facility] Advance Directives Documents on File Type Date Recorded 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 Yes Care Teams Brand Manager Relationship Specialty Start Date End Date Kai Shea MD [address] [place] [address] PCP - General 03/13/21 Jessica Perales DO [address] [place] [address] Resident Neurology 06/16/21
--- OUTSIDE RECORDS SUMMARY | 2025-09-23 08:46 | XMS_ITS | Encounter Summary ---
Author Organization Healthcare Address [address] [place] [address] Care Team Providers Care Division Roadmaster Name Role Phone Kai Shea MD Primary Care Provider [phone] Jessica Perales DO Unavailable [phone] Encounter Details Date Type Department Care Team (Late st Contact Info) Description 12/31/2024 Lab Requisition [facility] [address] [place] [address] Valdo Carrillo, CARLOS [address] [place] [address] Encounter for general adult medical examination without [...] drink first t vane in the morning (EYE-OCCUPATIONAL THERAPIST AIDE) to steady your nerves or to get [...] Visit [place] [facility] [address], [address] [place] [address] Debi Obando, MBBS [address] [place] [address] documented as of this encounter [...] LAB HEMATOLOGY METHOD 01/01/2025 2:08 PM EST [facility] Specimen Source, Body Fluid LAB HEMATOLOGY METHOD 01/01/2025 2:08 PM EST [facility] Clinical Diagnosis, Body Fluid Joint fluid. Neuropathy. History of plasma cell neoplasm and Parkinson's LAB HEMATOLOGY METHOD 01/01/2025 2:08 PM EST [facility] Interpretation , Body Fluid No evidence of malignancy; acute inflammatory cells. See comment A resident was involved in the service. I attest I examined the relevant preparations for the specimens and confirmed the diagnosis or interpretation. 01/01/2025 2:08 PM EST [facility] Pathologist Signature, Body Fluid 01/01/2025 2:08 PM EST [facility] Comment:Reviewed by: Prashanth Montiel MD LAB CP ASR DISCLAIMER Yes 01/01/2025 2:08 PM EST [facility] Joint Fluid 12/31/2024 3:15 PM EST 12/31/2024 6:01 PM EST Narrative [facility] - 01/01/2025 2:08 PM EST Correlation with microbiology studies is suggested. us Valdo GONZALEZ LAB BODY FLUIDS AND STOOLS ORDERABLES Final Result [facility] [address] [place] [address] * (ABNORMAL) Body Fluid Cell Count w/ Diff (12/31/2024 3:15 PM EST) Color, Body fluid Yellow LAB HEMATOLOGY METHOD 12/31/2024 8:00 PM EST [facility] Appearance, Body fluid Cloudy(A) LAB HEMATOLOGY METHOD 12/31/2024 8:00 PM EST [facility] Volume, Body fluid 2.5 cc LAB HEMATOLOGY METHOD 12/31/2024 8:00 PM EST [facility] Fluid Container Specimen received in EDTA tube LAB HEMATOLOGY METHOD 12/31/2024 8:00 PM EST [facility] Red Blood Cell Count, Body fluid 5,000 uL LAB HEMATOLOGY METHOD 12/31/2024 8:00 PM EST [facility] Total Nucleated Cell Count, Body fluid 44,000 uL LAB HEMATOLOGY METHOD 12/31/2024 8:00 PM EST [facility] Neutrophils %, Body fluid 95 % LAB HEMATOLOGY METHOD 12/31/2024 8:00 PM EST [facility] Lymphocytes %, Body fluid 1 % LAB HEMATOLOGY METHOD 12/31/2024 8:00 PM EST [facility] Monocytes/Macro phages %, Body fluid 4 % LAB HEMATOLOGY METHOD 12/31/2024 8:00 PM EST [facility] Eosinophils %, Body fluid 0 % LAB HEMATOLOGY METHOD 12/31/2024 8:00 PM EST [facility] Lining/Mesothel ial Cells %, Body fluid 0 % LAB HEMATOLOGY METHOD 12/31/2024 8:00 PM EST [facility] Neutrophils Absolute (PMN), Body fluid 41,800 uL LAB HEMATOLOGY METHOD 12/31/2024 8:00 PM EST [facility] Lymphocytes Absolute, Body fluid 440 uL LAB HEMATOLOGY METHOD 12/31/2024 8:00 PM EST [facility] Monocytes/Macro phages Absolute, Body fluid 1,760 uL LAB HEMATOLOGY METHOD 12/31/2024 8:00 PM EST [facility] Eosinophils Absolute, Body fluid 0 uL LAB HEMATOLOGY METHOD 12/31/2024 8:00 PM EST [facility] Basophils Absolute, Body fluid 0 uL LAB HEMATOLOGY METHOD 12/31/2024 8:00 PM EST [facility] Lining/Mesothel ial Cells Absolute, Body fluid 0 uL LAB HEMATOLOGY METHOD 12/31/2024 8:00 PM EST [facility] Comment, Body fluid None LAB HEMATOLOGY METHOD 12/31/2024 8:00 PM EST [facility] Comment:This is an appended report. These results have been appended to a previously preliminary verified report. Basophils %, Body fluid 0 % LAB HEMATOLOGY METHOD 12/31/2024 8:00 PM EST [facility] Joint Fluid 12/31/2024 3:15 PM EST 12/31/2024 6:01 PM EST Valdo GONZALEZ LAB BODY FLUIDS AN D STOOLS ORDERABLES NO SPECIMEN TYPE/SOURCE Final Result [facility] [address] [place] [address] * (ABNORMAL) Synovial fluid, crystal (12/31/2024 3:15 PM EST) Crystals, Joint Fluid Calcium Pyrophosphate Crystals Present(A) No Crystals Present 12/31/2024 11:06 PM EST [facility] Joint Fluid 12/31/2024 3:15 PM EST 12/31/2024 6:01 PM EST Narrative [facility] - 12/31/2024 11:06 PM EST Under compensated polarized light microscopy rhomboidal positively birefringent crystals are seen consistent with Calcium Pyrophosphate. The presence of steroid crystals may result in a false positive. Correlate results with recent history up to 2 months of steroid injection. Valdo GONZALEZ LAB BODY FLUIDS AND STOOLS ORDERABLES Final Result [facility] [address] [place] [address] documented in this encounter Visit Diagnoses Diagnosis [...] documented as of this encounter Care Teams Division Roadmaster Relationship Specialty Start Date End Date Kai Shea MD [address] [place] [address] PCP - General 03/13/21 Jessica Perales DO [address] [place] [address] Resident Neurology 06/16/21 documented as of this encounter
--- OUTSIDE RECORDS SUMMARY | 2025-09-23 08:46 | XMS_ITS | Encounter Summary ---
Author Organization Healthcare Address [address] [place] [address] Care Team Providers Care Earring Maker Name Role Phone Kai Shea MD Primary Care Provider [phone] Jessica Perales DO Unavailable [phone] Encounter Details Date Type Department Care Team (Late st Contact Info) Description 12/31/2024 Lab Requisition [facility] [address] [place] [address] Valdo Carrillo, CARLOS [address] [place] [address] Encounter for general adult medical examination without [...] drink first t vane in the morning (EYE-BANK EXAMINER) to steady your nerves or to get [...] Description 11/26/2025 3:30 PM EST Office Visit [place] [facility] [address], 1st [place] [address] Debi Obando, LAWANDA [address] [place] [address] documented as of this encounter Procedures Procedure Name Priority Date/Time Associated Diagnosis Comments BODY FLUID CULTURE AND GRAM STAIN Routine 12/31/2024 5:40 PM EST Encounter for general adult medical examination without abnormal findings documented in this encounter Results * (ABNORMAL) Body Fluid Culture and Gram Stain (12/31/2024 5:40 PM EST) Culture Light Growth 01/06/2025 10:47 AM EDT [facility] Culture Staphylococcus epidermidis(A) BASSAM 01/06/2025 10:47 AM EDT [facility] Comment: This isolate has been identified using the FDA Approved [employer] System The organism value for this result has been updated. These results have been appended to the previously preliminary verified report. Edited result: Previously reported as Gram positive cocci on 01/02/2025 at 0908 EST. Gram Stain Result Numerous Polymorphonuclear leukocytes(A) 01/06/2025 10:47 AM EDT [facility] Gram Stain Result Rare Gram positive cocci in pairs(A) 01/06/2025 10:47 AM EDT [facility] Joint Fluid Synovial fluid [...] Staphylococcus epidermidis Vancomycin BASSAM 1 ug/ml: Susceptible Valdo GONZALEZ LAB MICROBIOLOGY - GENERAL ORDERABLES Final Result [facility] [address] [place] [address] documented in this encounter Visit Diagnoses Diagnosis [...] documented as of this encounter Care Teams Earring Maker Relationship Specialty Start Date End Date Kai Shea MD [address] [place] [address] PCP - General 03/13/21 Jessica Perales DO [address] [facility] [address] [place] [address] Resident Neurology 06/16/21 documented as of this encounter
--- OUTSIDE RECORDS SUMMARY | 2025-09-23 08:46 | XMS_ITS | Clinical Summary ---
Author Organization [facility] Address [address] [facility] [address] [place] [address] Phone Care Team Providers Care Visual Arts Teacher Name Role Phone Unavailable Primary Care [...] PART A AND B FEDERAL [facility] FEDERAL /[place] [address] MEDICARE [place] PART A AND B ANTH FEDERAL
--- OUTSIDE RECORDS SUMMARY | 2025-09-23 08:46 | XMS_ITS | Encounter Summary ---
Author Organization [place] [address] Care Team Providers Care School Photograph Editor Name Role Phone Unavailable Primary Care Provider Unavailabl e Encounter Details Date Type Department Care Team (Late st Contact Info) Description 01/07/2023 Orders Only [facility] [place] [id number] Barbara Bess MD [address] [place] [phone] Social History Tobacco Use Types Packs/Day Years [...] 01/07/2023 9:45 AM EST Narrative [facility] - 01/24/2023 5:22 PM EDT Requesting Provider: GIOVANNA Chaney Specimen = [id number] us Barbara Bess MD PATHOLOGY ORDERABLES Final Resul t [facility] [address] [place] [address] documented in this encounter Visit Diagnoses Not on filedocumented in this encounter
--- OUTSIDE RECORDS SUMMARY | 2025-09-23 08:46 | XMS_ITS | Encounter Summary ---
Author Organization Healthcare Address [address] [place] [address] Care Team Providers Care Standpipe Tender Name Role Phone Kai Shea MD Primary Care Provider [phone]- [phone] Jessica Perales DO Unavailable [phone] Encounter Details Date Type Department Care Team (Late st Contact Info) Description 09/17/2021 Lab Requisition [facility] [address] [place] [address] Mar Diaz MD 800 [facility] [address] [place] [phone] Decreased white blood cell count, unspecified Social [...] Visit [place] [facility] [address], [address] [place] [phone] Debi Obando MBBS [address] [place] [address] documented as of this encounter Procedures Procedure Name Priority Date/Time Associated Diagnosis Comments BONE MARROW EXAM CONSULT Routine 09/17/2021 9:40 AM EST Decreased white blood cell count, unspecified documented in this encounter Results * Bone Marrow Consult (09/17/2021 9:40 AM EST) Case Report Bone Marrow Case: [id number] Authorizing Provider: Mar Diaz MD Collected: 09/17/2021939 Ordering Location: [facility] Lab Received: 09/17/2021 0940 Pathologist: Jen Tesfaye MD Specimen: Bone Marrow Biopsy, [id number] 09/21/2021 1:36 PM EST [facility] Final Diagnosis PERIPHERAL BLOOD AND BONE MARROW, POSTERIOR ILIAC CREST (PERIPHERAL SMEAR, ASPIRATE SMEAR, AND CORE BIOPSY): - KAPPA RESECTED PLASMA CELL NEOPLASM, 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 Correlation with complete radiologic and laboratory studies is required for final diagnosis. 09/21/2021 1:36 PM EST [facility] Clinical Information D72.819 - Decreased white blood cell count, unspecified [ICD-10-CM] 09/21/2021 1:36 PM EST [facility] CBC and Differential PERIPHERAL BLOOD: No results found for requested labs within last 200 hours. DIFFERENTIAL:No results found for requested labs within last 200 hours. Leukopenia with mild lymphopenia and mild neutropenia.Macro cytic, normocytic red blood cells without anemia. Adequate platelets.no circulating plasma cells. 09/21/2021 1:36 PM EST [facility] Bone Marrow Differential BONE MARROW DIFFERENTIAL: 200 cells Normal Patient Neutrophils 15-50 12 Metamyelocytes 4-19 19 Myelocytes 1-18 23 Promyelocytes 1-8 0 Blasts 0-2 0 Monocytes 0-5 1 Erythroid 16-38 26 Lymphocytes 3-24 5 Eosinophils 0-6 7 Basophils 0-2 1 Plasma cells 0-4 6 Other 09/21/2021 1:36 PM EST [facility] Bone Marrow Aspirate and Biopsy The bone marrow aspirate smears show several cellular marrow particles with maturing trilineage hematopoiesis. Myeloid precursors are maturing . Blasts are not increased. Erythropoiesis is blending tank helper. Plasma cells are increased and account for [...] Gain of 11q/CCND1 09/21/2021 1:36 PM EST [facility] Gross Description A. [id number] Received along with a corresponding pathology report from [facility] are 19 slide(s) labeled outside case: [id number] collected on 01/08/2021. 09/21/2021 1:36 PM EST [facility] Note: A resident was involved in the service. I attest I examined the relevant preparations for the specimens and confirmed the diagnosis or interpretation. 09/21/2021 1:36 PM EST [facility] Bone Marrow Specimen from bone marrow obtained by biopsy / Unknown 09/17/2021 9:40 AM EST 09/17/2021 9:40 AM EST us Mar Diaz MD LAB PATHOLOGY ORDERABLES Rosa godinez Result [facility] [address] [place] [address] documented in this encounter Visit Diagnoses Diagnosis Decreased white blood cell count, unspecified documented in this encounter Additional Health Concerns Assessment Noted Time A fall risk assessment has been complete d for the patient 2021 1:47 PM EDT documented as of this encounter Care Teams Standpipe Tender Relationship Specialty Start Date End Date Kai Shea MD [address] [place] [address] PCP - General 03/13/21 Jessica Perales DO [address] [place] [address] Resident Neurology 06/16/21 documented as of this encounter
--- OUTSIDE RECORDS SUMMARY | 2025-09-23 08:46 | XMS_ITS | Encounter Summary ---
Author Organization [place] [address] Care Team Providers Care Superintendent Factory Name Role Phone Unavailable Primary Care Provider Unavailabl e Encounter Details Date Type Department Care Team (Late st Contact Info) Description 01/07/2023 Orders Only [facility] [place] [id number] Barbara Bess MD [address] [place] [phone] Social History Tobacco Use Types Packs/Day Years [...] AM EST) 01/07/2023 9:45 AM EST Narrative [facility] - 01/16/2023 11:22 AM EDT Requesting Provider: GIOVANNA Chaney Specimen = [id number] us Barbara Bess MD PATHOLOGY ORDERABLES Final Resul t Performing Organization Address City/State/[facility] Co de Phone Number [facility] [address] [place] [address] documented in this encounter Visit Diagnoses Not on filedocumented in this encounter
--- OUTSIDE RECORDS SUMMARY | 2025-09-23 08:46 | XMS_ITS | Clinical Summary ---
Author Organization [facility] Address [address] [place] [address] Care Team Providers Care Green End Man Name Role Phone Kai Shea MD Primary [...] & B LAVELL BLUE CROSS Care Teams Green End Man Relationship Specialty Start Date End Date Kai Shea MD [address] [place] [facility] [address] [facility] [address] [place] [address] PCP - General Family Medicine 04/05/23
== END 2025-09-23 23:59 | disposition home or self-care (01) ==
LOC: RT 08:43
PROVIDERS: PCP Family Medicine; Visit Provider Internal Medicine Pulmonary Disease
DX: R06.02 Shortness of breath (principal); R06.09 Other forms of dyspnea
CPT/HCPCS: 94618

== ENCOUNTER 2025-09-24 10:03 | Outpatient (CLI) | payer MEDICARE, BC, SELFPAY ==
--- OUTSIDE RECORDS SUMMARY | 2025-02-05 04:00 | XMS_ITS ---
Author Organization [facility] Address [address] [place], [place] [id number] Care Team Providers Care Mutual Fund Manager Name Role Phone Nas Shea Primary Care Provider Allergies No Known Allergies Results Component Value Reference Range Notes P-Hemoglobin A1C Reviewed date:02/07/2025 08:17:27 AM Interpretation: Performing Lab: Notes/Report: Test performed by [facility] [place] [employer] [address], [place] [address] Renato Cobb MD, Contact Center Consultant CLIA: [id number] Hemoglobin A1C 6.9 <5.7 % The following HbA1c ranges recommended by the [place] Diabetes Association (ADA) may be used as an aid in the diagnosis of diabetes mellitus. HbA1c Suggested Diagnosis >=6.5% Diabetic 5.7% - 6.4% Pre-Diabetic <5.7% Non-Diabetic P-TSH Reviewed date:02/07/2025 08:17:27 AM Interpretation: Performing Lab: Notes/Report: Test performed by [facility] [address] [place], [place] [address] [address], [place] [address] Renato Cobb MD, Contact Center Consultant CLIA: [id number] TSH 2.88 0.43-5.25 mU/L Estimated Average Glucose Reviewed date:02/07/2025 08:17:27 AM Interpretation: Performing Lab: Notes/Report: Test performed by [facility] [address] [place], [place] [address] [address], [place] [address] Renato Cobb MD, Contact Center Consultant CLIA: [id number] Estimated Average Glucose (eAG) 151 Estimated Average Glucose (eAG) is calculated using the equation eAG = (28.7 x HbA1c) - 46.7 based on the guidelines established by the ADA. If the patient has certain diseases including kidney disease, sickle cell anemia, thalassemia, or is taking medications such as dapsone, erythropoietin, or iron, eAG should not be evaluated. REASON FOR VISIT F/U from [facility] Medications Medication SIG (Take, Route, Frequency, Duration) Notes Start Date End Date Status Levothyroxine Sodium 75 MCG 1 tab(s) ora lly once a day Active Omeprazole 40 mg TAKE ONE CAPSULE BY MOUTH EVERY DAY; Duration: 90 Active Bisoprolol Fumarate 5 MG 1 tab(s) orally once a day Active hydroCHLOROthiazide 25 MG 1 tab(s) orall y once a day; Duration: 90 days Active Xarelto 20 MG 1 tablet with food Orally Once a day; Duration: 30 day(s) 10/19/2024 Active Atorvastatin Calcium 40 MG 1 tab(s) oral ly once a day (at bedtime) Active Jardiance 10 MG 1 tab(s) orally once a day (in the morning) Active Amitriptyline HCl 50 MG 1.5 tab(s) orall y once a day (at bedtime); Duration: 30 Active Tamsulosin HCl 0.4 mg TAKE ONE CAPSULE B Y MOUTH EVERY DAY; Duration: 90 Active Pregabalin 50 MG 1 capsule Orally Thr ee times a day Active Losartan Potassium 100 MG 1 tab(s) orall y once a day Active Vital Signs Weight 189.6 lbs 02/05/2025 Blood pressure systolic 112 mm Hg 02/06/20 25 Blood pressure diastolic 74 mm Hg 025 Height 72 in 02/05/2025 BMI 25.71 kg/m2 02/05/2025 Encounters Encounter Location Date Provider Diagnosis [facility] [address] [place] [id number] 02/05/2025 Nas Shea Type 2 diabetes donnie itus with other circulatory complication E11.59 ; Staphylococcal arthritis of right knee M00.061 ; Acquired hypothyroidism E03.9 ; Multiple myeloma C90.00 ; Diabetes mellitus with neuropathy E11.40 ; Dyslipidemia E78.5 ; Essential hypertension I10 ; Cardiomyopathy I42.9 and BMI 25.0-25.9,adult Z68.25 Assessments Encounter Date Diagnosis (ICD Code) Assessment Notes Treatment Notes Treatment Clinical Notes Section Notes 02/05/2025 Type 2 diabetes mellitus with other circulatory complication (ICD-10 - E11.59) 02/05/2025 Staphylococcal arthritis of right knee (ICD-10 - M00.061) 02/05/2025 Acquired hypothyroidism (ICD-10 - E03.9) 02/05/2025 Multiple myeloma (ICD-10 - C90.00) 02/05/2025 Diabetes mellitus with neuropathy (ICD-10 - E11.40) 02/05/2025 Dyslipidemia (ICD-10 - E78.5) 02/05/2025 Essential hypertension (ICD-10 - I10) 02/05/2025 Cardiomyopathy (ICD-10 - I42.9) 02/05/2025 BMI 25.0-25.9,adult (ICD-10 - Z68.25) 02/05/2025 Other Discharge summary with available lab/diagnostic imaging results obtained and reviewed. Discharge medication list reconciled. Appropriate counseling provided. Moderate Complexity Plan Of Treatment Medication Medication Name Sig Start Date Stop Date Notes Levothyroxine Sodium 75 MCG 1 tab(s) orally once a day Treatment Notes Assessment Notes Other Discharge summary wi th available lab/diagnostic imaging results obtained and reviewed. Discharge medication list reconciled. Appropriate counseling provided. Moderate Complexity Next Appt Details Follow Up: 3 Months, Reason: Provider Name:Nas Solis, 11/05/2025 09:15:00 AM, [address] [facility] [address] [facility], [address], [place], [place], [phone], Progress Notes * Lamonte DICKOB: 0 (75 yo M)Acc No.[id number]:02/05/2025 Progress Notes Patient: Henry Kaleb CHEUNG Provider: Nas Shea M.D. :1950 A ge:74 Y S ex:Male Date:02/05/2025 Address:[address] [place] [address] LUIZ KAMINSKI , [id number] Subjective: * Chief Complaints: * 1 . F/U from [facility]. * HPI: H PI: Patient is here today for a Transition of Care Visit. Discharge from the following Facility: Gladis [facility] , Discharge date: ,Date of phone contact following discharge: 01/04/2025. Gladis bowden was admitted to [facility] for definitive treatment of septic arthritis of the right knee. He was taken to the OR by Dr. De Souza initially with washout of the joint and started on antibiotics. He did not show significant improvement after several days and was taken back to the OR for second washout procedure. He has now completed his course of antibiotics and subjectively reports that the knee is feeling better. He continues to follow with Dr. De Souza.. P sychology: He has been under increased stress recently with the illness of his . * ROS: D ERMATOLOGY: no R [...] eye 12/2020. * Hospitalization/Major Diagno stic Procedure: [facility] ER-suture to pinky finger of left hand 09/25/09, C-scope - Dr. Kimball 09/2013, [facility] ER-Afib 01/2016, [facility] pancreatitis 09/02/16, Left heart cath/[place]/ normal flow of revascularized vessels 02/2017, [facility]-tachycardia 07/02 to 07/03/2020, [facility] UTC - Fall 11/14/2023. * Family History: [...] once a day (at bedtime) , Taking Tamsulosin HCl 0.4 mg Capsule TAKE ONE CAPSULE BY MOUTH EVERY DAY , Taking Pregabalin 50 MG Capsule 1 capsule Orally Three times a day , Taking Xarelto 20 MG Tablet 1 tablet with food Orally Once a day , Taking Omeprazole 40 mg Capsule Delayed Release TAKE ONE CAPSULE BY MOUTH EVERY DAY , Medication List reviewed and reconciled with the patient * Allergies: N .K.D.A. Objective: * Vitals: W t: 189.6, Temp: 97.7, BP: 112/74, Nurse: reynaldo, Ht: 72, BMI:25.71. * Examination: G eneral Examination: General Appearance: A ffect a bit flat. Weight loss noted.. H eart: R SR. L ungs: c lear to auscultation. E xtremities: R ight knee is mildly swollen but no redness or warmth. Assessment: * Assessment: 1. S taphylococcal arthritis of right knee - M00.061 (Primary) 2 . T ype 2 diabetes mellitus with other circulatory complication - E11.59 3 . A cquired hypothyroidism - E03.9 4 . M ultiple myeloma - C90.00 5 . D iabetes mellitus with neuropathy - E11.40 6 . D yslipidemia - E78.5 ?7. E ssential hypertension - I10 8 . C ardiomyopathy - I42.9 ?9. B [place] 25.0-25.9,adult - Z68.25 Plan: * Treatment: Value Reference Range H emoglobin A1C 6.9 H <5.7 - % * Nas Shea 02/07/2025 8 :17:19 AM >See phone encounter 2.?Acquired hypothyroidism? Continue Levothyroxine Sodium Tablet, 75 MCG, 1 tab(s), orally, once a day.?LAB: P-TSH (Collection Date & Time - 02/05/2025 08:21 AM)* Value Reference Range T SH 2.88 0.43-5.25 - mU/L * Nas Shea 02/07/2025 8 :17:19 AM >See phone encounter 3.?Others? Notes: Discharge summary with available lab/diagnostic imaging results obtained and reviewed. Discharge medication list reconciled. Appropriate counseling provided. Moderate Complexity?? * Labs: * L ab: Estimated Average Glucose (Collection Date & Time - 02/05/2025 08:21 AM) Value Reference Range E stimated Average Glucose 151 - mg/dL * [facility], IT support 02/06/2025 05:30:07 : This order was created by the Interface. Nas Shea 02/07/2025 8:17:19 AM >See phone encounter * Procedure Codes: 9 9495 TRANS CARE MGMT 14 DAY DISCH, 1111F DSCHR MED/CURENT MED MERGE, G2211 Complex e/m visit add on, 3044F HG A1C LEVEL LT 7.0%, G8752 MOST RECENT SYSTOLIC BP < 140MM HG, G8754 MOST RECENT DIASTOLIC BP < 90MM HG * Follow Up: 3 Months * Images: Billing Information: * Visit Code: 30998 Office Visit, Est Pt., Level 3. * Procedure Codes: 22089 TRANS CARE MGMT 14 DAY DISCH. 1111F DSCHR MED/CURENT MED MERGE. G2211 Complex e/m visit add on. 3044F HG A1C LEVEL LT 7.0%. G8752 MOST RECENT SYSTOLIC BP < 140MM HG. G8754 MOST RECENT DIASTOLIC BP < 90MM HG. * Electronic signature of Nas Shea MD on 09/24/2025 at 10:09 AM EST Sign off status: Pending * Provider: Nas Shea M.D. Date: 0 02/05/2025 Generated for Galilea lozano/Ken/eTransmitting on: 1 11/24/2024 10:09 AM EST History and Physical Notes * HPI (History of Present Illness) Category Sub-Category Detail Notes Category Not es HPI Patient is here today for a [facility] sition of Care Visit. Discharge from the following Facility: [facility] ,Discharge date: 01/03/2025 ,Date of phone contact following discharge: 01/04/2025. He was admitted to [facility] for definitive treatment of septic arthritis of the right knee. He was taken to the OR by Dr. De Souza initially with washout of the joint and started on antibiotics. He did not show significant improvement after several days and was taken back to the OR for second washout procedure. He has now completed his course of antibiotics and subjectively reports that the knee is feeling better. He continues to follow with Dr. De Souza. Examination Category Sub-Category Detail Notes Category Not es General Examination Heart: RSR Lungs: clear to auscultatio n Extremities: Right knee is mildly swollen but no redness or warmth General Appearance: Affect a bit flat. W eight loss noted.
--- OUTSIDE RECORDS SUMMARY | 2025-03-19 09:00 | XMS_ITS ---
Author Organization [facility] Address [address] [id number] Care Team Providers Care Cellophane Worker Name Role Phone Nas Shea Primary Care Provider Jessie Velez Unavailable [phone] Allergies No Known Allergies REASON FOR VISIT [...] Status Risk Notes Problem Benign prostatic hyperplasia (538221255) BPH (benign prostatic hyperplasia) (N40.0) Active confirmed Problem Chronic atrial fibrillation (205565863) Chronic atrial fibrillation (I48.20) Active confirmed Vital Signs Blood pressure systolic 104 mm Hg 03/19/20 25 Blood pressure diastolic 70 mm Hg 025 Heart Rate 82 /min 03/19/2025 Height 72 in 03/19/2025 Weight 201.2 lbs 03/19/2025 BMI 27.28 kg/m2 03/19/2025 Encounters Encounter Location Date Provider Diagnosis [facility] [address] [facility] [address] [place], [place] [id number] 03/19/2025 Jessie Whiteond Edema leg R60.0 ; Hypotension I95.9 ; [...] last week; after confering with Carlos Dhill[place] cardiology, pt will take 3 days of [...] AM, [address], [address], [place], [place], [id number], Progress Notes * Lamonte DICKOB: 0 (75 yo M)Acc No.[id number]:03/19/2025 Progress Notes Patient: Kaleb LUZ Provider: GABRIELLE Sanders :1950 A ge:74 Y S ex:Male Date:03/19/2025 Address:[address] [place] [address] [address] YAMILEX , [id number] Pcp:Nas Shea Subjective: * Chief Complaints: * [...] calcified posterior MV leaflet, mild MR mild [place]. 04/2023 HTN- BP low today Multiple myeloma- [...] Open Heart Surgery-Dr Mott @ [facility] 12/2015, thoracentesis 12/2015, Laparoscopic cholecystectomy - Dr. Wallace 09/06/16, cardiac defibirilltor placed-Dr Yates 07/04/2020, cataract surgery-right eye 12/2020, Knee Surgery - Due to Infection -01/2025. * Hospitalization/Major Diagno stic Procedure: H ER-suture to pinky finger of left hand 09/25/09, C-scope - Dr. Kimball 09/2013, [facility] ER-Afib 01/2016, [facility] pancreatitis 09/02/16, Left heart cath/[place]/ normal flow of revascularized vessels 02/2017, [facility]-tachycardia 07/02 to 07/03/2020, [facility] UTC - Fall 11/14/2023. * Family History: [...] 9 .7. C BC-hgb/hct/wbc 1 4.2/43.8/5.5; plt [id number]. T otal Cholesterol 9 5. T riglyceride 1 13. L DL 4 6.76. H DL 3 1. T SH 3 .80. S GOT/SGPT 2 17. a lk phos 8 1. t otal [...] arthritis of knee - M00.9? 12. B [place] 27.0-27.9,adult - Z68.27 1 3. B PH (benign prostatic hyperplasia) - N40.0 1 4. C hronic atrial fibrillation - I48.20 ? Plan: * Treatment: 2. H ypotension Notes: will continue to monitor BP; care with ambulation; continues to use walker with ambulation? 3. A SCVD (arteriosclerotic cardiovascular disease) Notes: discussed with [facility] [place] cardiology ; reviewed labs and ECHO 4. C ardiomyopathy Notes: reviewed recent ECHO 5. M ultiple myeloma Notes: follows with dr. Eason; currently on vacation from [place] 6. C hronic atrial fibrillation Continue Bisoprolol [...] * Images: Billing Information: * Visit Code: 76385 Office Visit, Est Pt., Level 4. * Procedure Codes: G2211 Complex e/m visit add on. G8420 BMI<30 AND >=22 CALC & DOCU. 3074F SYST BP LT 130 MM HG. 3078F DIAST BP < 80 MM HG. * Electronic signature of Dahlia Velez APRN on 09/24/2025 at 10:07 AM EST Sign off status: Pending * Provider: GABRIELLE Sanders Date: 0 03/19/2025 Generated for Galilea lozano/Ken/Lynn on: 1 11/24/2024 10:07 AM EST History and Physical Notes * [...] alert and oriented LABS CBC-hgb/hct/wbc 14.2/43.8/5.5; plt [id number] GFR 73 Creatinine 1 LDL 46.76 HDL 31 SGOT/SGPT 21/17 glucose 150 Total Cholesterol 95 Potassium 4.2 Sodium 140 BUN 38 TSH 3.80 Triglyceride 113 calcium 9.7 chloride 103 CO2 27 alk phos 81 total bilirubin 0.7 albumin 5 date of labs 03/14/2025 magnesium 1.9
--- OUTSIDE RECORDS SUMMARY | 2025-03-26 06:30 | XMS_ITS ---
Author Organization [facility] Address [address] [id number] Care Team Providers Care Mother Baby Rn Name Role Phone Nas Shea Primary Care Provider Jessie Velez Unavailable [phone] Allergies No Known Allergies REASON FOR VISIT [...] Once a day 10/19/2024 Active Vital Signs Weight 207.2 lbs 03/26/2025 Blood pressure systolic 120 mm Hg 03/26/20 25 Blood pressure diastolic 80 mm Hg 025 Heart Rate 100 /min 03/26/2025 Height 72 in 03/26/2025 BMI 28.1 kg/m2 03/26/2025 Encounters Encounter Location Date Provider Diagnosis [facility] [address] [place], [place] [id number] 03/26/2025 Jessie Velez Hypotension I95.9 ; Edema [...] Provider Name:Nas Solis, 11/05/2025 09:15:00 AM, [address], [address], [place], [place], [id number], Progress Notes * Lamonte SWANOB: 0 (75 yo M)Acc No.[id number]:03/26/2025 Progress Notes Patient: Henry Kaleb CHEUNG Provider: GABRIELLE Sanders :1950 A ge:74 Y S ex:Male Date:03/26/2025 Address:[address] [place] [address], [id number] Pcp:Nas Shea Subjective: * Chief Complaints: * [...] diuretics adjusted. He has not seen a biological scientist. During walking test today in clinic his [...] stents 03/08/07, Open Heart Surgery-Dr Mott @ [facility] 12/2015, thoracentesis 12/2015, Laparoscopic cholecystectomy - Dr. Wallace 09/06/16, cardiac defibirilltor placed-Dr Yates 07/04/2020, cataract surgery-right eye 12/2020, Knee Surgery - Due to Infection -01/2025. * Hospitalization/Major Diagno stic Procedure: H ER-suture to pinky finger of left hand 09/25/09, C-scope - Dr. Kimball 09/2013, [facility] ER-Afib 01/2016, [facility] pancreatitis 09/02/16, Left heart cath/[place]/ normal flow of revascularized vessels 02/2017, [facility]-tachycardia 07/02 to 07/03/2020, [facility] UTC - Fall 11/14/2023. * Family History: [...] AD , alert , pleasant; presents with school childcare attendant in a wheelchair. H eart: R RR. [...] 90MM HG * Follow Up: t o keep appt with Dr. Shea 04/18/2025 * Images: Billing Information: * Visit Code: 48201 Office Visit, Est Pt., Level 3. * Procedure Codes: G2211 Complex e/m visit add on. G8420 BMI<30 AND >=22 CALC & DOCU. G8950 PREHTN/HTN BP DOC INDCD F/U DOC. G8752 MOST RECENT SYSTOLIC BP < 140MM HG. G8754 MOST RECENT DIASTOLIC BP < 90MM HG. * Electronic signature of Dahlia Velez APRN on 09/24/2025 at 10:08 AM EST Sign off status: Pending * Provider: GABRIELLE Sanders Date: 0 03/26/2025 Generated for Galilea lozano/Ken/Steevnitting on: 1 11/24/2024 10:08 AM EST History and Physical Notes * [...] , alert , pleasa nt; presents with school childcare attendant in a wheelchair Neurologic Exam: alert and oriented
--- OUTSIDE RECORDS SUMMARY | 2025-04-18 04:00 | XMS_ITS ---
Author Organization [facility] Address [address] [place] [address] 36 [facility] [address] [place], [place] [id number] Care Team Providers Care Power Sweeper Operator Name Role Phone Nas Shea Primary Care Provider [phone] REASON FOR VISIT 6 months Encounters Encounter Location Date Provider Diagnosis [facility] [address] [facility] 36 [facility] [address] [place], [place] [phone] 04/18/2025 Nas Shea Plan Of Treatment Next Appt Details Provider Name:Nas Solis, 11/05/2025 09:15:00 AM, [address] [facility] 36 [facility], [address], [place], [place], [phone], Progress Notes * Lamonte SWANOB: 0 (75 yo M)Acc No.[id number]:04/18/2025 Progress Notes Patient: A Kaleb CHEUNG Provider: Nas Shea M.D. :1950 A ge:74 Y S ex:Male Date:04/18/2025 Address:[address] [place], [place] [address] TODD KAMINSKI , [place], [id number] Subjective: * Chief Complaints: * 1 . 6 months. * Medical History: Objective: * Vitals: Assessment: Plan: * Treatment: * Images: Billing Information: * Visit Code: * Procedure Codes: * Electronic signature of Nas Shea MD on 09/24/2025 at 10:10 AM EST Sign off status: Pending * Provider: Nas Shea M.D. Date: 0 04/18/2025 Generated for Galilea lozano/Ken/Lynn on: 11/24/2024 10:10 AM EST
--- OUTSIDE RECORDS SUMMARY | 2025-04-25 06:30 | XMS_ITS ---
Author Organization [facility] Address [address] [id number] Care Team Providers Care Bread Supervisor Name Role Phone Nas Shea Primary Care Provider [phone] Allergies No Known Allergies REASON FOR VISIT Skin Tear on Left Arm Possibly Infected Medications Medication SIG (Take, Route, Frequency, Duration) Notes Start Date End Date Status traMADol HCl 50 MG 1 tab Orally twice a day prn pain 04/25/2025 Active Amitriptyline HCl 50 MG 1.5 tab(s) orally once a day (at bedtime) Instructed to wean by 1/2 tablet daily per month Active Lasix 20 MG 1 tablet Orally every other day prn Active Atorvastatin Calcium 40 MG 1 tab(s) orally once a day (at bedtime) Active Aspirin 81 81 MG 1 tablet Orally Once a day Active Lasix 40 MG 1 tablet Orally every other day Active hydroCHLOROthiazide 25 MG 1 tab(s) orall y As needed; Duration: 90 days Not-Taking Losartan Potassium 25 MG 1 tablet Orally twice a day Active Levothyroxine Sodium 75 MCG 1 tab(s) orally once a day; Duration: 90 days Active Jardiance 10 MG 1 tab(s) orally once a day (in the morning) Not-Taking Omeprazole 40 mg TAKE ONE CAPSULE BY MOUTH EVERY DAY; Duration: 90 Active Tamsulosin HCl 0.4 mg TAKE ONE CAPSULE BY MOUTH EVERY DAY Active Xarelto 20 MG 1 tablet with food Orally Once a day 10/19/2024 Active Bisoprolol Fumarate 5 MG 1 tab(s) orally once a day; Duration: 90 days Active Problems Problem Type SNOMED Code ICD Code Onset Dates Problem Status W/U Status Risk Notes Problem Cardiac pacemaker in situ (561374263) Pacemaker (Z95.0) Active confirmed Vital Signs Weight 187 lbs 04/25/2025 Blood pressure systolic 112 mm Hg 04/25/20 Blood pressure diastolic 64 mm Hg 025 Heart Rate 78 /min 04/25/2025 Height 72 in 04/25/2025 BMI 25.36 kg/m2 04/25/2025 Encounters Encounter Location Date Provider Diagnosis [facility] [address] [facility] [address] [place], [place] [id number] 04/25/2025 R Jesus Monse Pacemaker Z95.0 ; Sk in tear of forearm without complication S51.819A ; Cardiomyopathy I42.9 ; History of ASCVD Z86.79 ; BPH (benign prostatic hyperplasia) N40.0 ; Diabetes mellitus E11.9 ; Peripheral neuropathy G62.9 ; Multiple myeloma C90.00 and BMI 25.0-25.9,adult Z68.25 Assessments Encounter Date Diagnosis (ICD Code) Assessment Notes Treatment Notes Treatment Clinical Notes Section Notes 04/25/2025 Pacemaker (ICD-10 - Z95.0) 04/25/2025 Skin tear of forearm without complication (ICD-10 - S51.819A) Instructed on wound care. Allow wound to be open to air for gradually more time each day 04/25/2025 Cardiomyopathy (ICD-10 - I42.9) 04/25/2025 History of ASCVD (ICD-10 - Z86.79) 04/25/2025 BPH (benign prostatic hyperplasia) (ICD-10 - N40.0) 04/25/2025 Diabetes mellitus (ICD-10 - E11.9) 04/25/2025 Peripheral neuropathy (ICD-10 - G62.9) Instructed to wean by one half tabs daily per month 04/25/2025 Multiple myeloma (ICD-10 - C90.00) 04/25/2025 BMI 25.0-25.9,adult (ICD-10 - Z68.25) Plan Of Treatment Medication Medication Name Sig Start Date Stop Date Notes traMADol HCl 50 MG 1 tab Orally twice a day prn pain 04/25/2025 Amitriptyline HCl 50 MG 1.5 tab(s) orall y once a day (at bedtime) Instructed to wean b y 1/2 tablet daily per month Treatment Notes Assessment Notes Skin tear of forearm without complicatio n Instructed on wound care. Allow wound to be open to air for gradually more time each day Peripheral neuropathy Instructed to wean by one half tabs daily per month Next Appt Details Follow Up: 3 Months, Reason: Provider Name:Nas Solis, 11/05/2025 09:15:00 AM, [address] [facility] [address] [facility], [address], [place], [place], [id number], Progress Notes * Osmar SWANenceDOB: 0 (75 yo M)Acc No.[id number]:04/25/2025 Progress Notes Patient: Kaleb LUZ Provider: Nas Shea M.D. :1950 A ge:74 Y S ex:Male Date:04/25/2025 Address:[address] [place] [address] LUIZ KAMINSKI , [id number] Subjective: * Chief Complaints: * 1 . Skin Tear on Left Arm Possibly Infected. * HPI: C ardiology: He had a permanent pacemaker placed yesterday by Dr. Yates. Xarelto is currently on hold. His Lasix dose was increased. He tells me the general contractor would like for him to wean off his amitriptyline. M kelsie Reproductive: He is any increased urinary frequency with the Lasix. He is currently on Flomax. Minimal issues with incontinence. D ermatology: He has a skin tear in his left arm that occurred 3 to 4 weeks ago. Someone placed an occlusive dressing at 1 point and when it was removed, it caused further tearing of the skin. He is currently using a Adaptic with a sterile dressing. K nee/Hernandez: He has been following with Dr. De Souza for right knee pain. He is not interested in knee replacement. He has had some injections. He was placed in a knee brace yesterday. Dr. De Souza told him to ask for a nonnarcotic pain reliever that he can take with Xarelto. * ROS: C ARDIOLOGY: no D izziness. n o C hest pain. G ASTROENTEROLOGY: no N ausea. n o V omiting. U ROLOGY: no D ifficulty urinating. n o B lood in urine. * Medical History: H ypertension, ASCVD, Hyperlipidemia, Hearing Aids, Declines Prevnar 05/2016, 12/2016, Atrial Fib - converted - 01/2016, Gallstone pancreatitis - 08/2016, Peripheral neuropathy, MGUS - monoclonal gammopathy of undetermined significance/ Dr. Parker, Elevated PSA 4.3 (09/2019), Type 2 diabetes, Normal CTA of lower extremities 02/[address] Malik, Multiple myeloma - dx 2022 - Dr. Eason. * Surgical History: C oronary stents 03/08/2007, Open Heart Surgery-Dr Mott @ [facility] 12/2015, thoracentesis 12/2015, Laparoscopic cholecystectomy - Dr. Wallace 09/06/2016, cardiac defibirilltor placed-Dr Yates 07/04/2020, cataract surgery-right eye 12/2020, Knee Surgery - Due to Infection -01/2025, Cardiac Pacemaker 04/24/2025. * Hospitalization/Major Diagno stic Procedure: H ER-suture to pinky finger of left hand 09/25/2009, C-scope - Dr. Kimball 09/2013, [facility] ER-Afib 01/2016, [facility]-Gallstone pancreatitis 09/02/2016, Left heart cath/[place]/ normal flow of revascularized vessels 02/2017, [facility]-tachycardia 07/02-12/2019, [facility] UTC - Fall 11/14/2023. * Family History: F ather: , emphysema. M other: , diabetes, heart disease. 1 brother(s) - healthy. . * Social History: C URRENT TOBACCO USE: No . C affeine: yes, frequency:. Marital Status: . Past smoking status: no. Alcohol: no. * Medications: T aking Lasix 40 MG Tablet 1 tablet Orally every other day , Taking Losartan Potassium 25 MG Tablet 1 tablet Orally twice a day , Taking Lasix 20 MG Tablet 1 tablet Orally every other day , Notes to Pharmacist: prn, Taking Aspirin 81 81 MG Tablet Delayed Release 1 tablet Orally Once a day , Taking Atorvastatin Calcium 40 MG Tablet 1 tab(s) orally once a day (at bedtime) , Taking Amitriptyline HCl 50 MG Tablet 1.5 tab(s) orally once a day (at bedtime) , Taking Omeprazole 40 mg Capsule Delayed Release TAKE ONE CAPSULE BY MOUTH EVERY DAY , Taking Xarelto 20 MG Tablet 1 tablet with food Orally Once a day , Taking Tamsulosin HCl 0.4 mg Capsule TAKE ONE CAPSULE BY MOUTH EVERY DAY , Taking Bisoprolol Fumarate 5 MG Tablet 1 tab(s) orally once a day , Taking Levothyroxine Sodium 75 MCG Tablet 1 tab(s) orally once a day , Not-Taking hydroCHLOROthiazide 25 MG Tablet 1 tab(s) orally As needed , Not- Taking Jardiance 10 MG Tablet 1 tab(s) orally once a day (in the morning) , Discontinued Pregabalin 50 MG Capsule 1 capsule Orally Three times a day , Discontinued Furosemide 20 MG Tablet 1 tablet Orally Once a day , Medication List reviewed and reconciled with the patient * Allergies: N .K.D.A. Objective: * Vitals: W t: 187, Temp: 97.4, BP: 112/64, HR: 78, O2 Sat: 96% on RA, Nurse: FATOUMATA, Ht: 72, BMI:25.36. * Examination: G eneral Examination: Gladis bowden comes in by wheelchair. Affect is bit flat. He appears in no distress. Lungs are clear. Heart is regular. Pacemaker site shows some swelling and bruising. No drainage. On the dorsum of the left forearm there is a 3 x 5 cm area of denuded skin. No purulent drainage, erythema, or induration. Lower extremities show no edema. Assessment: * Assessment: 1. P acemaker - Z95.0 (Primary) 2 . S kin tear of forearm without complication - S51.819A 3 . C ardiomyopathy - I42.9 4 . H istory of ASCVD - Z86.79 5 . B PH (benign prostatic hyperplasia) - N40.0 6 . D iabetes mellitus - E11.9 7 . P eripheral neuropathy - G62.9 ?8. M ultiple myeloma - C90.00 9 . B [place] 25.0-25.9,adult - Z68.25 ? Plan: * Treatment: 2. P eripheral neuropathy Continue Amitriptyline HCl Tablet, 50 MG, 1.5 tab(s), orally, once a day (at bedtime), Notes to Pharmacist: Instructed to wean by 1/2 tablet daily per month. Notes: Instructed to wean by one half tabs daily per month 3. O thers Start traMADol HCl Tablet, 50 MG, 1 tab, Orally, twice a day prn pain, 60. * Procedure Codes: G 2211 Complex e/m visit add on, 1036F TOBACCO NON-USER, G8420 BMI<30 AND >=22 CALC & DOCU, G8783 BP SCR PRFRM RCMDD DEFIND SCR INTVL, G8752 MOST RECENT SYSTOLIC BP < 140MM HG, G8754 MOST RECENT DIASTOLIC BP < 90MM HG * Follow Up: 3 Months * Images: Billing Information: * Visit Code: 97567 Office Visit, Est Pt., Level 4. * Procedure Codes: G2211 Complex e/m visit add on. 1036F TOBACCO NON-USER. G8420 BMI<30 AND >=22 CALC & DOCU. G8783 BP SCR PRFRM RCMDD DEFIND SCR INTVL. G8752 MOST RECENT SYSTOLIC BP < 140MM HG. G8754 MOST RECENT DIASTOLIC BP < 90MM HG. * Electronic signature of Nas Shea MD on 09/24/2025 at 10:09 AM EST Sign off status: Pending * Provider: Nas Shea M.D. Date: 0 04/25/2025 Generated for Galilea lozano/Ken/Stevenitting on: 11/24/2024 10:09 AM EST History and Physical Notes * HPI (History of Present Illness) Category Sub-Category Detail Notes Category Not es Dermatology He has a skin t ear in his left arm that occurred 3 to 4 weeks ago. Someone placed an occlusive dressing at 1 point and when it was removed, it caused further tearing of the skin. He is currently using a Adaptic with a sterile dressing. Cardiology He tells me the general contractor would like for him to wean off his amitriptyline. Knee/Hernandez He has been fol lowing with Dr. De Souza for right knee pain. He is not interested in knee replacement. He has had some injections. He was placed in a knee brace yesterday. Dr. De Souza told him to ask for a nonnarcotic pain reliever that he can take with Xarelto. Examination Category Sub-Category Detail Notes Category Not es General Examination He comes in by wheelchair. Affect is bit flat. He appears in no distress. Lungs are clear. Heart is regular. Pacemaker site shows some swelling and bruising. No drainage. On the dorsum of the left forearm there is a 3 x 5 cm area of denuded skin. No purulent drainage, erythema, or induration. Lower extremities show no edema.
--- OUTSIDE RECORDS SUMMARY | 2025-06-05 04:30 | XMS_ITS ---
Author Organization [facility] Address [address] [facility] [address] [place] [id number] Care Team Providers Care Shell Press Operator Name Role Phone Nas Shea Primary Care Provider Farida Ponce Unavailable [phone] Allergies No Known Allergies Results Component Value Reference Range Notes H-CBC Reviewed date:06/10/2025 09:40:54 AM Interpretation: Performing Lab: Notes/Report: WBC 4.3 4.8-10.8 K/mm3 RBC 4.05 4.60-6.20 M/mm3 HGB 12.1 14.1-18.0 g/dL HCT 38.7 42.0-52.0 % MCV 95.6 80-94 fl MCH 29.9 27.0-31.2 pg MCHC 31.3 31.8-35.4 g/dL RDW-SD 49.6 RDW 14.2 11.5-17.5 % PLT 151 142-424 K/mm3 MPV 10.0 7.4-10.4 fl NE% 74.4 37.0-80.0 % LY% 14.5 10-50 % MO% 9.3 1.7-9.3 % EO% 0.9 0.1-12.0 % BA% 0.7 0.1-2.0 % NRBC% 0 IG% 0.2 NE# 3.2 1.8-7.8 K/mm3 LY# 0.6 0.7-4.5 K/mm3 MO# 0.4 0.1-1.0 K/mm3 EO# 0.0 0.0-0.4 Kmm3 BA# 0.0 0-0.2 K/mm3 NRBC# 0 IG# 0.01 H-CMP Reviewed date:06/10/2025 09:41:06 AM Interpretation: Performing Lab: Notes/Report: NA 139 136-145 mmol/L K 4.0 3.5-5.1 mmoL/L CL 106 98-107 mmol/L CO2 28 22.0-30.0 mmol/L GAP 9.0 5-15 mEq/L BUN 17 9-20 mg/dl CREATT 0.70 0.66-1.25 mg/dl GFRAA 133 >60 ML/MIN EGFR 110 >60 ml/min GLU 129 74-100 mg/dl CA 9.3 8.4-10.2 mg/dl BILIT 0.5 0.2-1.3 mg/dl AST 24 17-59 U/L ALT 11 12-78 U/L TP 6.3 6.3-8.2 g/dl ALB 4.2 3.5-5.0 g/dl GLOB 2.1 1.3-3.2 g/dL AGRATIO 2.0 1.1-1.8 ALP 90 38-126 U/L REASON FOR VISIT bug bite Medications Medication SIG (Take, Route, Frequency, Duration) Notes Start Date End Date Status Lasix 40 MG 1 tablet Orally every other day Active Aspirin 81 81 MG 1 tablet Orally Once a day; Duration: 90 days Active Amitriptyline HCl 50 MG 1.5 tab(s) orally once a day (at bedtime) Instructed to wean by 1/2 tablet daily per month Active traMADol HCl 50 MG 1 tab Orally twice a day prn pain 04/25/2025 Active Levothyroxine Sodium 75 MCG 1 tab(s) orally once a day; Duration: 90 days Active Bisoprolol Fumarate 5 MG 1 tab(s) orally once a day; Duration: 90 days Active Cephalexin 500 MG 1 tablet Orally twice a day; Duration: 10 days 06/05/2025 Active Tamsulosin HCl 0.4 mg TAKE ONE CAPSULE BY MOUTH EVERY DAY Active Lasix 20 MG 1 tablet Orally every other day prn Active Losartan Potassium 25 MG 1 tablet Orally twice a day Active Xarelto 20 MG 1 tablet with food Orally Once a day 10/19/2024 Active Omeprazole 40 mg TAKE ONE CAPSULE BY MOUTH EVERY DAY; Duration: 90 Active Atorvastatin Calcium 40 MG 1 tab(s) orally once a day (at bedtime) Active Vital Signs Blood pressure systolic 116 mm Hg 06/05/20 25 Blood pressure diastolic 70 mm Hg 025 Heart Rate 70 /min 06/05/2025 Height 72 in 06/05/2025 Weight 197.8 lbs 06/05/2025 BMI 26.82 kg/m2 06/05/2025 Encounters Encounter Location Date Provider Diagnosis [facility] [address] [facility] [address] [facility] [address] [place], [place] [id number] 06/05/2025 Farida Crowjunie Multiple myeloma C90 .00 ; Orbital cellulitis, right H05.011 and BMI 26.0-26.9,adult Z68.26 Assessments Encounter Date Diagnosis (ICD Code) Assessment Notes Treatment Notes Treatment Clinical Notes Section Notes 06/05/2025 Multiple myeloma (ICD-10 - C90.00) 06/05/2025 Orbital cellulitis, right (ICD-10 - H05.011) 06/05/2025 BMI 26.0-26.9,adult (ICD-10 - Z68.26) Plan Of Treatment Medication Medication Name Sig Start Date Stop Date Notes Cephalexin 500 MG 1 tablet Orally twic e a day; Duration: 10 days 06/05/2025 Next Appt Details Follow Up: Tuesday, Reason: Provider Name:Nas Solis, 11/05/2025 09:15:00 AM, [address] [facility] [address] [facility], [address], [place], [place], [id number], Progress Notes * Lamonte DICKOB: 0 (75 yo M)Acc No.[id number]:06/05/2025 Progress Notes Patient: Madisyn Kaleb CHEUNG Provider: CARLOS Castaneda :1950 A ge:74 Y S ex:Male Date:06/05/2025 Address:[address] [place] [address], [id number] Pcp:Nas Shea Subjective: * Chief Complaints: * 1 . Bug bite. * HPI: D ermatology: 74 year old male presents with c/o redness P t states it might be a bug bite but not sure under right eye. P t states it was just a little red and now its swollen and red. Pt states this happen 2 days ago. * ROS: C ARDIOLOGY: no D izziness. [...] hand 09/25/2009, C-scope - Dr. Kimball 09/2013, [facility] ER-Afib 01/2016, [facility] pancreatitis 09/02/2016, Left heart cath/[place]/ normal flow of revascularized vessels 02/2017, [facility]-tachycardia 07/02-12/2019, [facility] UTC - Fall 11/14/2023. * [...] day , Notes to Pharmacist: prn, Taking Atorvastatin Calcium 40 MG Tablet 1 [...] tab(s) orally once a day , Taking traMADol HCl 50 MG Tablet 1 tab Orally twice a day prn pain , Taking Amitriptyline HCl 50 MG Tablet 1.5 tab(s) orally once a day (at bedtime) , Notes to Pharmacist: Instructed to wean by 1/2 tablet daily per month, Taking Aspirin 81 81 MG Tablet Delayed Release 1 tablet Orally Once a day , Discontinued hydroCHLOROthiazide 25 MG Tablet 1 tab(s) orally As needed , Discontinued Jardiance 10 MG Tablet 1 tab(s) orally once a day (in the morning) , Medication List reviewed and reconciled with the patient * Allergies: N .K.D.A. Objective: * Vitals: W t: 197.8, Temp: 97.6, BP: 116/70, HR: 70, Nurse: ken, Ht: 72, BMI:26.82. * Examination: G eneral Examination: General Appearance: N AD. H EENT: u nder right eye is a bug bite that has surrounding erythema and edema under the orbit, the area is tender. C hest: n ormal shape and expansion. H eart: R SR. L ungs: c lear to auscultation.? Assessment: * Assessment: 1. O rbital cellulitis, right - H05.011 (Primary) 2 . M ultiple myeloma - C90.00 3 . B NC 26.0-26.9,adult - Z68.26 Plan: * Treatment: Value Reference Range W BC 4.3 L 4.8-10.8 - K/mm3 * R BC 4.05 L 4.60-6.20 - M/mm3 * H GB 12.1 L 14.1-18.0 - g/dL * H CT 38.7 L 42.0-52.0 - % * M CV 95.6 H 80-94 - fl * M CH 29.9 27.0-31.2 - pg * M CHC 31.3 L 31.8-35.4 - g/dL * R DW 14.2 11.5-17.5 - % * P LT 151 142-424 - K/mm3 * M PV 10.0 7.4-10.4 - fl * N E% 74.4 37.0-80.0 - % * L Y% 14.5 10-50 - % * M O% 9.3 1.7-9.3 - % * E O% 0.9 0.1-12.0 - % * B A% 0.7 0.1-2.0 - % * N E# 3.2 1.8-7.8 - K/mm3 * L Y# 0.6 L 0.7-4.5 - K/mm3 * M O# 0.4 0.1-1.0 - K/mm3 * E O# 0.0 0.0-0.4 - Kmm3 * B A# 0.0 0-0.2 - K/mm3 * R DW-SD 49.6 - fL * N RBC% 0 - % * N RBC# 0 - 10 3/uL * I G% 0.2 - % * I G# 0.01 - 10 3uL * Farida Ponce 06/10/2025 0 9:40:43 AM EDT >Already discussed with patient 2.?Multiple myeloma?LAB: H-CMP (Collection Date & Time - 06/05/2025 09:15 AM)* Value Reference Range N A 139 136-145 - mmol/L * K 4.0 3.5-5.1 - mmoL/L * C L 106 98-107 - mmol/L * C O2 28 22.0-30.0 - mmol/L * G AP 9.0 5-15 - mEq/L * B UN 17 9-20 - mg/dl * C REATT 0.70 0.66-1.25 - mg/dl * G FRAA 133 >60 - ML/MIN * E GFR 110 >60 - ml/min * G AURA 129 H 74-100 - mg/dl * C A 9.3 8.4-10.2 - mg/dl * B ILIT 0.5 0.2-1.3 - mg/dl * A ST 24 17-59 - U/L * A LT 11 L 12-78 - U/L * T P 6.3 6.3-8.2 - g/dl * A LB 4.2 3.5-5.0 - g/dl * G LOB 2.1 1.3-3.2 - g/dL * A GRATIO 2.0 H 1.1-1.8 - * A LP 90 38-126 - U/L * Farida Ponce 06/10/2025 0 9:40:56 AM EDT >already discussed with patient * Procedure Codes: G 2211 Complex e/m visit add on, 1036F TOBACCO NON-USER, G8420 BMI<30 AND >=22 CALC & DOCU, G8783 BP SCR PRFRM RCMDD DEFIND SCR INTVL, G8752 MOST RECENT SYSTOLIC BP < 140MM HG, G8754 MOST RECENT DIASTOLIC BP < 90MM HG * Follow Up: F riday * Images: Billing Information: * Visit Code: 93841 Office Visit, Est Pt., Level 3. * Procedure Codes: G2211 Complex e/m visit add on. 1036F TOBACCO NON-USER. G8420 BMI<30 AND >=22 CALC & DOCU. G8783 BP SCR PRFRM RCMDD DEFIND SCR INTVL. G8752 MOST RECENT SYSTOLIC BP < 140MM HG. G8754 MOST RECENT DIASTOLIC BP < 90MM HG. * Electronic signature of CARLOS Chase on 09/24/2025 at 10:07 AM EST Sign off status: Pending * Provider: CARLOS Castaneda Date: 0 06/05/2025 Generated for Galilea lozano/Ken/eTransmitting on: 11/24/2024 10:07 AM EST History and Physical Notes * HPI (History of Present Illness) Category Sub-Category Detail Notes Category Not es Dermatology redness Pt states it blayne ht be a bug bite but not sure under right eye. Pt states it was just a little red and now its swollen and red. Pt states this happen 2 days ago Examination Category Sub-Category Detail Notes Category Not es General Examination HEENT: under right eye is a bug bite that has surrounding erythema and edema under the orbit, the area is tender Heart: RSR Lungs: clear to auscultatio n General Appearance: NAD Chest: normal shape and exp ansion
--- OUTSIDE RECORDS SUMMARY | 2025-06-07 04:00 | XMS_ITS ---
Author Organization [facility] Address [address] [id number] Care Team Providers Care Underground Bolting Machine Operator Name Role Phone Nas Shea Primary Care Provider Farida Ponce Unavailable [phone] Allergies No Known Allergies REASON FOR VISIT Tuesday f/u Medications Medication SIG (Take, Route, Frequency, Duration) Notes Start Date End Date Status Losartan Potassium 25 MG 1 tablet Orally twice a day Active Clindamycin HCl 300 MG 1 capsule Orally 3 times a day; Duration: 7 days 06/07/2025 Active Lasix 20 MG 1 tablet Orally every other day prn Active Atorvastatin Calcium 40 MG 1 tab(s) orally once a day (at bedtime) Active Levothyroxine Sodium 75 MCG 1 tab(s) orally once a day; Duration: 90 days Active traMADol HCl 50 MG 1 tab Orally twice a day prn pain 04/25/2025 Active Amitriptyline HCl 50 MG 1.5 tab(s) orally once a day (at bedtime) Instructed to wean by 1/2 tablet daily per month Active Lasix 40 MG 1 tablet Orally every other day Active Aspirin 81 81 MG 1 tablet Orally Once a day; Duration: 90 days Active Xarelto 20 MG 1 tablet with food Orally Once a day 10/19/2024 Active Tamsulosin HCl 0.4 mg TAKE ONE CAPSULE BY MOUTH EVERY DAY Active Bisoprolol Fumarate 5 MG 1 tab(s) orally once a day; Duration: 90 days Active Omeprazole 40 mg TAKE ONE CAPSULE BY MOUTH EVERY DAY; Duration: 90 Active Vital Signs Weight 199.2 lbs 06/07/2025 Blood pressure systolic 110 mm Hg 06/07/20 25 Blood pressure diastolic 70 mm Hg 025 Heart Rate 82 /min 06/07/2025 Height 72 in 06/07/2025 BMI 27.01 kg/m2 06/07/2025 Encounters Encounter Location Date Provider Diagnosis [facility] [address] [facility] [address] [facility] [address] [place] [id number] 06/07/2025 Farida Ponce Orbital cellulitis, right H05.011 ; Cutaneous abscess of face L02.01 and BMI 27.0-27.9,adult Z68.27 Assessments Encounter Date Diagnosis (ICD Code) Assessment Notes Treatment Notes Treatment Clinical Notes Section Notes 06/07/2025 Orbital cellulitis, right (ICD-10 - H05.011) 06/07/2025 Cutaneous abscess of face (ICD-10 - L02.01) There appears to be an abscess forming under the bite rufus. Will switch abx and apply hot compresses. Will have patient f/u with Dr. Shea on Tuesday. If this worsens, he will go to the ER. 06/07/2025 BMI 27.0-27.9,adult (ICD-10 - Z68.27) Plan Of Treatment Medication Medication Name Sig Start Date Stop Date Notes Clindamycin HCl 300 MG 1 capsule Orally 3 times a day; Duration: 7 days 06/07/2025 Cephalexin 500 MG 1 tablet Orally twice a day 06/05/2025 Treatment Notes Assessment Notes Cutaneous abscess of face There appears to be an abscess forming under the bite rufus. Will switch abx and apply hot compresses. Will have patient f/u with Dr. Shea on Tuesday. If this worsens, he will go to the ER. Next Appt Details Follow Up: Tuesday with Dash pedroza, Reason: Provider Name:Nas Solis, 11/05/2025 09:15:00 AM, [address] [facility] [address] [facility], [address], [place], [id number], Progress Notes * Lamonte DICKOB: 0 (75 yo M)Acc No.[id number]:06/07/2025 Progress Notes Patient: A Kaleb CHEUNG Provider: CARLOS Castaneda :1950 A ge:74 Y S ex:Male Date:06/07/2025 Address:[address] [place] [address] TOD[place] KAMINSKI , [place], [id number] Pcp:Nas Shea Subjective: * Chief Complaints: * 1 . Tuesday f/u. * HPI: D ermatology: 74 year old male presents with c/o bug bites P t is here today for a f/u on a bug bite he had under the rt eye. Pt sts the swelling is still there and it is benzol still operator. * ROS: C ARDIOLOGY: no D izziness. [...] hand 09/25/2009, C-scope - Dr. Kimball 09/2013, [facility] ER-Afib 01/2016, [facility]-[place] pancreatitis 09/02/2016, Left heart cath/[place]/ normal flow of revascularized vessels 02/2017, [facility]-tachycardia 07/02-12/2019, [facility] UTC - Fall 11/14/2023. * [...] tablet Orally Once a day , Taking Cephalexin 500 MG Tablet 1 tablet Orally twice a day , Medication List reviewed and reconciled with the patient * Allergies: N .K.D.A. Objective: * Vitals: W t: 199.2, Temp: 97.7, BP: 110/70, HR: 82, O2 Sat: 96% on RA, Nurse: reynaldo, Ht: 72, BMI:27.01. * Examination: G eneral Examination: General Appearance: N AD. H EENT: u nder right eye is a bug bite that has surrounding erythema and edema under the orbit, the area is tender and more firm today, it is not fluctuant. C hest: n ormal shape and expansion. H eart: R SR. Lungs: c lear to auscultation. Assessment: * Assessment: 1. O rbital cellulitis, right - H05.011 (Primary) 2 . C utaneous abscess of face - L02.01 3 . B LA 27.0-27.9,adult - Z68.27 Plan: * Treatment: * Procedure Codes: G 2211 Complex e/m visit add on, 1036F TOBACCO NON-USER, G8420 BMI<30 AND >=22 CALC & DOCU, G8783 BP SCR PRFRM RCMDD DEFIND SCR INTVL, G8752 MOST RECENT SYSTOLIC BP < 140MM HG, G8754 MOST RECENT DIASTOLIC BP < 90MM HG * Follow Up: T with Monse * Images: Billing Information: * Visit Code: 74534 Office Visit, Est Pt., Level 3. * Procedure Codes: G2211 Complex e/m visit add on. 1036F TOBACCO NON-USER. G8420 BMI<30 AND >=22 CALC & DOCU. G8783 BP SCR PRFRM RCMDD DEFIND SCR INTVL. G8752 MOST RECENT SYSTOLIC BP < 140MM HG. G8754 MOST RECENT DIASTOLIC BP < 90MM HG. * Electronic signature of CARLOS Chase on 09/24/2025 at 10:08 AM EST Sign off status: Pending * Provider: CARLOS Castaneda Date: 0 06/07/2025 Generated for Galilea lozano/Ken/eTransmitting on: 11/24/2024 10:08 AM EST History and Physical Notes * HPI (History of Present Illness) Category Sub-Category Detail Notes Category Not es Dermatology bug bites Pt is here today for a f/u on a bug bite he had under the rt eye. Pt sts the swelling is still there and it is benzol still operator Examination Category Sub-Category Detail Notes Category Not es General Examination HEENT: under right eye is a bug bite that has surrounding erythema and edema under the orbit, the area is tender and more firm today, it is not fluctuant Heart: RSR Lungs: clear to auscultatio n General Appearance: NAD Chest: normal shape and exp ansion
--- OUTSIDE RECORDS SUMMARY | 2025-06-13 04:15 | XMS_ITS ---
Author Organization [facility] Address [address] [id number] Care Team Providers Care Sealer Sander Name Role Phone Nas Shea Primary Care Provider [phone] Allergies No Known Allergies REASON FOR VISIT [...] DAY; Duration: 90 Active Vital Signs Weight 196.6 lbs 06/13/2025 Blood pressure systolic 120 mm Hg 06/13/20 25 Blood pressure diastolic 80 mm Hg 025 Heart Rate 70 /min 06/13/2025 Height 72 in 06/13/2025 BMI 26.66 kg/m2 06/13/2025 Encounters Encounter Location Date Provider Diagnosis Joel 1210 [facility] 36 [facility] [address] [place], [place] [phone] 06/13/2025 Nas Shea Orbital cellulitis, right H05.011 ; Cutaneous [...] Provider Name:Nas Solis, 11/05/2025 09:15:00 AM, 1210 [facility] 36 [facility], [address], [place], [place], [phone], Progress Notes * Lamonte SWANOB: 0 (75 yo M)Acc No.[id number]:06/13/2025 Patient: Henry Kaleb CHEUNG Provider: Nas Shea M.D. :1950 A ge:74 Y S ex:Male Date:06/13/2025 Address:[address] [place] [address] LUIZ K[place]KI , [place], [id number] Subjective: * Chief Complaints: * 1 . [...] stents 03/08/2007, Open Heart Surgery-Dr Mott @ [facility] 12/2015, thoracentesis 12/2015, Laparoscopic cholecystectomy - Dr. Wallace 09/06/2016, cardiac defibirilltor placed-Dr Yates 07/04/2020, cataract surgery-right eye 12/2020, Knee Surgery - Due to Infection -01/2025, Cardiac Pacemaker 04/24/2025. * Hospitalization/Major Diagno stic Procedure: H ER-suture to pinky finger of left hand 09/25/2009, C-scope - Dr. Kimball 09/2013, [facility] ER-Afib 01/2016, [facility]-Gallstone pancreatitis 09/02/2016, Left heart cath/[place]/ normal flow of revascularized vessels 02/2017, [facility]-tachycardia 07/02-12/2019, [facility] UTC - Fall 11/14/2023. * Family History: [...] of face - L02.01 3 . B [place] 26.0-26.9,adult - Z68.26 Plan: * Treatment: * Procedure Codes: G 2211 Complex e/m visit add on, 1036F TOBACCO NON-USER, G8783 BP SCR PRFRM RCMDD DEFIND SCR INTVL, G8752 MOST RECENT SYSTOLIC BP < 140MM HG, G8754 MOST RECENT DIASTOLIC BP < 90MM HG * Follow Up: a s scheduled * Images: Billing Information: * Visit Code: 39069 Office Visit, Est Pt., Level 3. * Procedure Codes: G2211 Complex e/m visit add on. 1036F TOBACCO NON-USER. G8783 BP SCR PRFRM RCMDD DEFIND SCR INTVL. G8752 MOST RECENT SYSTOLIC BP < 140MM HG. G8754 MOST RECENT DIASTOLIC BP < 90MM HG. * Electronic signature of R Ibrahima Shea MD on 09/24/2025 at 10:08 AM EST Sign off status: Pending * Provider: Nas Shea M.D. Date: 0 06/13/2025 Generated for Meloniei marta/Ken/eTransmitting on: 1 11/24/2024 10:08 AM EST History [...]
--- OUTSIDE RECORDS SUMMARY | 2025-07-02 04:15 | XMS_ITS ---
Author Organization [facility] Address [address] [place] [id number] Care Team Providers Care Framing Carpenter Name Role Phone Nas Shea Primary Care [...] Interpretation:FBS 110; GFR 86 Performing Lab: Notes/Report: Test performed by [facility] [facility] , [address], [place] [address] Renato Cobb MD, Lumber [employer]ier CLIA: [id number] Sodium 142 135-145 mmol/L Potassium 4.4 3.5-5.3 [...] 48 Performing Lab: Notes/Report: Test performed by [facility], [address] , [address], [place] [address] Renato Cobb MD, L[employer]ier CLIA: [id number] Cholesterol 93 <200 mg/dL Triglycerides 84 <150 [...] Interpretation:4.19 Performing Lab: Notes/Report: Test performed by [facility] [address] [place], [place] [address] [place] , [place] [address] Renato Cobb MD, L[employer]ier CLIA: [id number] TSH 4.19 0.43-5.25 mU/L P-Microalbumin/Creatinine, R andom Urine Sample Reviewed date:07/04/2025 08:31:36 AM Interpretation:A/C 44 Performing Lab: Notes/Report: Test performed by [facility] [address] [place], [place] [address] [place] [address], [place] [address] Renato Cobb MD, [employer] CLIA: [id number] Albumin/Creatinine Ratio, Urine 44 0-30 ug/m g [...] Status W/U Status Risk Notes Problem Insomnia (180109476) Insomnia (G47.00) Active confirmed Vital Signs Blood pressure systolic 130 mm Hg 07/02/20 25 Blood pressure diastolic 82 mm Hg 025 Heart Rate 71 /min 07/02/2025 Height 72 in 07/02/2025 Weight 193.6 lbs 07/02/2025 BMI 26.25 kg/m2 07/02/2025 Encounters Encounter Location Date Provider Diagnosis [facility] [address] [facility] [address] [place] [phone] 07/02/2025 Nas Shea Adult general medica l [...] 11/05/2025 09:15:00 AM, [address] [facility], [address], [place], [place], [id number], Progress Notes * Lamonte DICKOB: 0 (75 yo M)Acc No.[id number]:07/02/2025 Annual Wellness Visit Patient: Kaleb LUZ Provider: Nas Shea M.D. :1950 A ge:75 Y S ex:Male Date:07/02/2025 Address:[address] [place] [address] TODD DEE YAMILEX CHAPARRO, [id number] Subjective: * Chief Complaints: * 1 . [...] hand 09/25/2009, C-scope - Dr. Kimball 09/2013, [facility] ER-Afib 01/2016, [facility]-Gallstone pancreatitis 09/02/2016, Left heart cath/[place]/ normal flow of revascularized vessels 02/2017, [facility]-tachycardia 07/02-12/2019, [facility] UTC - Fall 11/14/2023. * Family History: [...] I nsomnia - G47.00 1 0. B CA 26.0-26.9,adult - Z68.26 Plan: * Treatment: 2. [...] VST, G2211 Complex e/[place], [address] GLYCATED HEMOGLOBIN TEST, Modifiers: QW , 1090F PRES/ABSN URINE INCON ASSESS, 3288F FALL RISK ASSESSMENT DOCD, 1170F FXNL STATUS ASSESSED, 1159F MED LIST DOCD IN RCRD, 1003F LEVEL OF ACTIVITY ASSESS, 58677 CBC WITH AUTO DIFF, 1036F TOBACCO NON- [...] * Images: Billing Information: * Visit Code: 83934 Office Visit, Est Pt., Level 3. Modifiers: 25 * Procedure Codes: G0439 ANNUAL WELLNESS VST; PPS SUBSQT VST. G2211 Complex e/[place]. [address] GLYCATED HEMOGLOBIN TEST. Modifiers: QW 1090F PRES/ABSN URINE INCON ASSESS. 3288F FALL RISK ASSESSMENT DOCD. 1170F FXNL STATUS ASSESSED. 1159F MED LIST DOCD IN RCRD. 1003F LEVEL OF ACTIVITY ASSESS. 13721 CBC WITH AUTO DIFF. 1036F TOBACCO NON-USER. [...] of Nas Shea MD on 09/24/2025 at 10:07 AM EST Sign off status: Pending * Provider: Nas Shea M.D. Date: 0 07/02/2025 Generated for Galilea lozano/Ken/Stevenitting on: 1 11/24/2024 10:07 AM EST History [...] the past 12 months Depression Screening: Describes [facility] as: downhearted due to being recently placed [...]
--- OUTSIDE RECORDS SUMMARY | 2025-09-23 06:15 | XMS_ITS ---
Author Organization [facility] Address [address] [place] [id number] Care Team Providers Care Physical Medicine Physician Name Role Phone Nas Shea Primary Care Provider [phone] Jessie Velez Unavailable [phone] Allergies No Known Allergies Results Component Value Reference Range Notes P-Digoxin (Not yet reviewed by provider) Interpretation:1.0 Performing Lab: Notes/Report: Test performed by [email or web address] [address] [place] [address] , [address], [place] [address] Prashant Walter MD, PhD, [facility], Kennel Attendant CLIA: [id number] Digoxin 1.0 0.8-2.0 ng/mL P-TSH (Not yet reviewed by juanita clay) Interpretation:5.17 Performing Lab: Notes/Report: Test performed by [email or web address] [address] [place] [address] , [address], [place] [address] Prashant Walter MD, PhD, [facility], Kennel Attendant CLIA: [id number] TSH 5.17 0.43-5.25 mU/L Reason For Referral Diagnosis 1 Acute diarrhea (R19. 7) Referral Organization [facility] Referring Provider First Name Jessie Referring Provider Last Name Agustin Referring Provider Speciality Family Pra ctice Referred Provider Gastroenterology, . Referred Provider Specialty Gastroentero logy General Notes Alva Young 2024 01:01:27 PM > faxed to [facility] GI Referral Priority Routine REASON FOR VISIT diarrhea Medications Medication SIG (Take, Route, Frequency, Duration) Notes Start Date End Date Status Jardiance 10 MG 1 tablet Orally Once a day; Duration: 90 days Active Omeprazole 40 mg 1 capsule orally onc e a day; Duration: 90 days Active Atorvastatin Calcium 40 MG 1 tablet at b edtime Orally Once a day; Duration: 90 days Active traZODone HCl 50 MG 1/2-1 tablet at bedt cuca as needed Orally Once a day; Duration: 30 days Active Levothyroxine Sodium 75 MCG 1 tab(s) ora lly once a day; Duration: 90 days Active Accu-Chek Guide w/Device once a day 07/24/2025 Active Accu-Chek Softclix Lancets - check glucose once a day; Duration: 100 days 07/24/2025 Active Accu-Chek Strips daily; Duration: 100 days 07/24/2025 Active Bisoprolol Fumarate 10 MG take 10mg in A M and 5 mg in PM; Duration: 90 days Active traMADol HCl 50 MG 1 tab Orally twice a day prn pain 07/02/2025 Active Aspirin 81 81 MG 1 tablet Orally Once a day; Duration: 90 days Active Eliquis 5 MG as directed Orally t wice a day Active Knee Brace - as directed 09/23/2025 Acti ve Losartan Potassium 25 MG 1 tablet Orally twice a day Active Digoxin 125 MCG 1 tablet Orally Active Tamsulosin HCl 0.4 mg 1 capusle orally o nce a day; Duration: 90 days Active Vital Signs Weight 185 lbs 09/23/2025 Blood pressure systolic 128 mm Hg 09/23/20 25 Blood pressure diastolic 80 mm Hg 025 Heart Rate 71 /min 09/23/2025 Height 72 in 09/23/2025 BMI 25.09 kg/m2 09/23/2025 Encounters Encounter Location Date Provider Diagnosis [facility] [address] [place], [place] [id number] 09/23/2025 Jessie Velez Acute diarrhea R19.7 and Septic arthritis of knee M00.9 Assessments Encounter Date Diagnosis (ICD Code) Assessment Notes Treatment Notes Treatment Clinical Notes Section Notes 09/23/2025 Acute diarrhea (ICD-10 - R19.7) encouraged bland diet with several small feedings during the day; to continue with good water intake; to add Glucerna and take a MVI; stool for Cdff was neg; will check full diarrhea panel 09/23/2025 Septic arthritis of knee (ICD-10 - M00.9) resolved and now in PT; knee gives away and soft splint not working Plan Of Treatment Medication Medication Name Sig Start Date Stop Date Notes Knee Brace - as directed 09/23/2025 Treatment Notes Assessment Notes Acute diarrhea encouraged bland t with several small feedings during the day; to continue with good water intake; to add Glucerna and take a MVI; stool for Cdff was neg; will check full diarrhea panel Pending Test Test Name Order Date Diarrhea Panel ([facility]) 09/23/2025 P-Digoxin 09/23/2025 P-TSH 09/23/2025 Referrals Referral Date Details 09/23/2025 09/23/2025, . Gastro enterology Next Appt Details Follow Up: prn, Reason: Provider Name:Nas Solis, 11/05/2025 09:15:00 AM, [address] [facility] [address] [facility], [address] [place] [address], [id number], Progress Notes * Lamonte DICKOB: 0 (75 yo M)Acc No.[id number]:09/23/2025 Progress Notes Patient: Kaleb LUZ Provider: GABRIELLE Sanders :1950 A ge:75 Y S ex:Male Date:09/23/2025 Address:[address] [place] [address], [id number] Pcp:Nas Shea Subjective: * Chief Complaints: * 1 . Diarrhea. * HPI: G astroenterology: noted to be on Xgeva q 3 months which has SE of diarrhea. 75 year old male presents with c/o Heartburn. c/o Diarrhea P t states he has been having diarrhea for about 2 months ( possibly longer). Pt states it's a few times a day at least 4 times daily. , watery; takes Imodium on a regular basis. Denies : Abdominal Pain. D enies : Acid Reflux. D enies : Nausea. D enies : Vomiting. D enies : Fever. D enies : Abdominal Distension. D enies : Blood in Stool. D enies : Hemetemesis. D enies : Indigestion. D enies : Bloating.? * ROS: C ARDIOLOGY: Positive for c ardiology appt 09/10/2025 with the following notes: Plan Details Active Problems Reviewed?: Yes Additional Comments: Patient here for follow up Patient weight down 8 lbs Denies cp & pressure SOB w/wo activity Denies Dizziness & lightheadedness Denies Swelling Numbness in feet Denies Fatigue c/o diarrhea, burping, nausea 1. CAD-stable -Medical mgt 2019. -Hx CABG (DURAND to LAD, SVG to circumflex with skip graft over to RCA/PDA) -On aspirin 2. HFrEF 35-40%(DECEMBER2024) -EF35-40%, Normal BiV function with tethered and calcified posterior MV leaflet, mild MR mild AL. 04/2023 3. HTN - BP stable 4. Multiple myeloma (MGUS) - followed by Dr. Eason. 5. HLD -LDL 42(03/2025). -On statin. Managed by PCP. 6. EVELIA -LIBBY 20-49%, LICA less than 20%.(2020) 7. PAD -Medical management (MAY 2024) 8. 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 100% AT/AF but only BiV pacing b/w 50-75%. 9. PAFib, chronic, rate controlled On pradaxa, denies bleeding. But is having diarrhea since starting this. Has been taking imodium daily 10. DM2, A1C 7.1% (2023) -managed by pcp 11. Parkinsons - new diagnosis. 12. OSAis present -but pt refuse C pap. Managed by PCP 13. Resp Failure with hypoxia, followed by -Oxygen therapy started 02/2025 -PFTs, 2020, no evidence of obstructive or restrictive lung disease. -CTA, April 2024, no obvious pulmonary parenchymal abnormalities with bilateral pleural effusions noted -6-minute walk test, 02/2025, no desaturation to 86% at 2-minute rufus Discussed watchmen device if intolerant to the eliquis we will send for evaluation Plan: Stop pradaxa- diarrhea Stop ASA Start eliquis 5mg orally twice daily- PAF Increase bisoprolol to 10mg orally every morning and 5mg orally at bedtime. Hopefully will increase BiV pacing and subsequently increase LVEF. Acute abdominal series- diarrhea, rule out obstruction/large stool burden ECHO-HFrEF, TERRITORY SERVICE REPRESENTATIVE-D RTC in 1 month. D ERMATOLOGY: no R jean marie. n o H sally. G ASTROENTEROLOGY: Positive for p oor eater; drinks water; had cormbread only for dinner last night. n o N ausea. n o V omiting. n o A bdominal pain. H EMATOLOGY/LYMPH: Positive for O ncology visit /Dr. Eason 09/10/2025: HPI:Mr. Dick is in for follow-up of multiple myeloma. Details of his disease and treatment are described above. Most recently, all therapy was held on December 18, 2024 aside from dexamethasone weekly due to increasing fatigue and with an excellent response that included no observed monoclonal protein remaining on SPEP. Dexamethasone was then held in January 2025. Since that time, he has been found to have a low level of IgG kappa monoclonal protein up to 0.4 g/dL in May 2025. Other serologies have been stable and clinically he has done well. Therefore he has continued to be followed observation only. He does continue on Xgeva every 3 months with next dosing due in September. Today, he notes diarrhea over the last 3 months up to 5 times per day that is watery. He uses Imodium with benefit. There is no blood in the stool nor abdominal cramping/pain. He has had no fevers. He does relate that this started after he initiated Pradaxa. He also had been given some antibiotics around that time, as well. He also states he feels like he is not emptying his bladder well. There has been no dysuria or hematuria. He wonders whether he might be able to stop his oxygen which he only uses when he walks longer distances. This was prescribed by Dr. Ann. Mr. Dick has multiple myeloma with IgG kappa specific protein. Details of his disease and treatment are described above. Most recently, he has had all treatment held on December 18, 2024 aside from weekly dexamethasone at 10 mg which was then discontinued in January 2025. This was due to increasing side effects of treatment, namely fatigue, and with an excellent response with myeloma protein. There has been slight increase in myeloma protein on labs since then but otherwise stable findings clinically and serologically. We will follow-up on pending serologies from today and then decide on how to proceed but, hopefully, we will be able to continue with observation only. We again discussed the need to consider carefully further treatment and what type at that point given the medical status that has declined due to other issues. He will receive Xgeva again in late September which he has been getting every 3 months. Further follow-up in our clinic for his myeloma will be decided on after review of today's laboratories. As for the diarrhea, this seems to have started with Pradax though I am not aware this is a major contributor to diarrhea. He will review this with cardiology who started this medication and states they have discussed potentially moving to Eliquis. We will check C. difficile toxin and make him aware the results. If diarrhea continues, there needs to be consideration for follow-up with primary care and/for gastroenterology. For urinary symptoms, we will check a urinalysis and make him aware the results. Otherwise, he should follow-up with his primary care provider and/or urology. Lastly, he has an oximeter at home and have encouraged him to check his oxygen level after walking a significant amount on room air. If he is maintained above 90% after several tries, I encouraged him contact Dr. Ann and pulmonology who prescribed this to see if he may discontinue his oxygen supplementation. I have asked Mr. Dick, his niece and a friend who accompanied him today to let me know if there are any questions or concerns, at any time. Orders:. N EUROLOGY: no I nsomnia. n o M wilmar loss. U ROLOGY: no D ifficulty urinating. n [...] 2022 - Dr. Eason, Cologuard 12/2022 - Negative, Pacemaker. * Surgical History: C oronary stents 03/08/2007, Open Heart Surgery-Dr Mott @ [facility] 12/2015, thoracentesis 12/2015, Laparoscopic cholecystectomy - Dr. Wallace 09/06/2016, cardiac defibirilltor placed-Dr Yates 07/04/2020, cataract surgery-right eye 12/2020, Knee Surgery - Due to Infection -01/2025, Cardiac Pacemaker 04/24/2025. * Hospitalization/Major Diagno stic Procedure: [facility] ER-suture to pinky finger of left hand 09/25/2009, C-scope - Dr. Kimball 09/2013, [facility] ER-Afib 01/2016, [facility]-Gallstone pancreatitis 09/02/2016, Left heart cath/[place]/ normal flow of revascularized vessels 02/2017, [facility]-tachycardia 07/02-12/2019, [facility] UTC - Fall 11/14/2023. * Family History: F ather: , emphysema. M other: , diabetes, heart disease. 1 brother(s) - healthy. . * Social History: C URRENT TOBACCO USE: No . C affeine: yes, frequency:. Marital Status: . Past smoking status: no. Alcohol: no. * Medications: T aking Eliquis 5 MG Tablet as directed Orally twice a day , Taking Digoxin 125 MCG Tablet 1 tablet Orally , Taking Losartan Potassium 25 MG Tablet 1 tablet Orally twice a day , Taking Aspirin 81 81 MG Tablet Delayed Release 1 tablet Orally Once a day , Taking traMADol HCl 50 MG Tablet 1 tab Orally twice a day prn pain , Taking Bisoprolol Fumarate 10 MG Tablet take 10mg in AM and 5 mg in PM , Taking Accu- Chek Softclix Lancets - Miscellaneous check glucose once a day , Notes to Pharmacist: E11.59, Taking Accu-Chek Guide w/Device Kit once a day , Notes to Pharmacist: E11.59, Taking Accu-Chek Strips daily , Notes to Pharmacist: E11.59, Taking Jardiance 10 MG Tablet 1 tablet Orally Once a day , Taking Atorvastatin Calcium 40 MG Tablet 1 tablet at bedtime Orally Once a day , Taking Omeprazole 40 mg Capsule Delayed Release 1 capsule orally once a day , Taking Levothyroxine Sodium 75 MCG Tablet 1 tab(s) orally once a day , Taking traZODone HCl 50 MG Tablet 1/2-1 tablet at bedtime as needed Orally Once a day , Taking Tamsulosin HCl 0.4 mg Capsule 1 capusle orally once a day , Discontinued Lasix 20 MG Tablet 1 tablet Orally every other day , Notes to Pharmacist: prn, Discontinued Xarelto 20 MG Tablet 1 tablet with food Orally Once a day , Discontinued Lasix 40 MG Tablet 1 tablet Orally every other day , Medication List reviewed and reconciled with the patient * Allergies: N .K.D.A. Objective: * Vitals: W t: 185, Temp: 98.1, BP: 128/80, HR: 71, O2 Sat: 97% on RA, Nurse: ken, Ht: 72, BMI:25.09. * Examination: G eneral Examination: General Appearance: A lert, NAD; thin; appears hydrated; presents with niece and caregiver in a wheelchair. H eart: R RR. L ungs: C TAB A&P. A bdomen: b owel sounds present, soft and nontender. N eurologic Exam: a lert and oriented. E xtremities: n o leg edema; right knee with soft brace on; FROM of bilateral legs-crossing and uncrossing repeatedly of both during visit. X ray: SEE STUDIES 1 11/10/2024 acute abdominal series FINDINGS: The lungs are grossly clear. There is no evidence of effusion, pneumothorax or other significant pleural disease. Left-sided pacer is present. The patient is status post CABG. The heart size is normal. The abdomen exam demonstrates the visualized intestinal gas pattern to be unremarkable without evidence to suggest obstruction. There is no free intraperitoneal air. No abdominal radiopacities are seen in the abdomen. Extensive vascular calcifications in the pelvis. The patient is status post cholecystectomy. Compression fracture noted in the lower lumbar spine. IMPRESSION: No bowel obstruction or free air. . L ABS: date of labs 1 11/10/2024. C reatinine 0 .9. B UN 2 1. S odium 1 40. P otassium 3 .8. c hloride 1 05. C O2 2 8.?glucose 1 97. c alcium 8 .7. C BC-hgb/hct/wbc 1 2.4/40.2/3.7; plt ct [id number]. H bA1C 5.7. S GOT/SGPT 2 04/24. a lk phos 9 9. t otal bilirubin 0 .9. a lbumin 4 .2. 1 11/13/2024 stool for C diff negative. Assessment: * Assessment: 1. A cute diarrhea - R19.7 (Primary) 2 . S eptic arthritis of knee - M00.9? Specify :right knee N otes :resolved and now in PT; knee gives away and soft splint not working Plan: * Treatment: Value Reference Range D igoxin 1.0 0.8-2.0 - ng/mL ?LAB: P-TSH (Collection Date & Time - 09/23/2025 11:10 AM)?5.17* Value Reference Range T SH 5.17 0.43-5.25 - mU/L Notes: encouraged bland diet with several small feedings during the day; to continue with good water intake; to add Glucerna and take a MVI; stool for Cdff was neg; will check full diarrhea panel ? Referral To:. Gastroenterology??Gastroenterology ?Reason: 2.?Septic arthritis of knee? Start Knee Brace Miscellaneous, -, as directed.?? * Follow Up: p rn * Images: Billing Information: * Visit Code: 69614 Office Visit, Est Pt., Level 4. * Procedure Codes: * Electronic signature of Dahlia Velez APRN on 09/24/2025 at 10:08 AM EST Sign off status: Pending * Provider: GABRIELLE Sanders Date: 11/23/2024 Generated for Galilea lozano/Ken/Lynn on: 11/24/2024 10:08 AM EST History and Physical Notes * HPI (History of Present Illness) Category Sub-Category Detail Notes Category Not es Gastroenterology Fever Vomiting Abdominal Pain Diarrhea Pt states he has bee n having diarrhea for about 2 months ( possibly longer). Pt states it's a few times a day at least 4 times daily. , watery; takes Imodium on a regular basis Blood in Stool Hemetemesis Nausea Abdominal Distension Heartburn Acid Reflux Indigestion Bloating Examination Category Sub-Category Detail Notes Category Not es General Examination Heart: RRR Lungs: CTAB A&P Abdomen: bowel sounds present , soft and nontender Extremities: no leg edema; right knee with soft brace on; FROM of bilateral legs-crossing and uncrossing repeatedly of both during visit General Appearance: Alert, NAD; thin; ap pears hydrated; presents with niece and caregiver in a wheelchair Neurologic Exam: alert and oriented LABS CBC-hgb/hct/wbc 12.4/40.2/3.7; plt ct 119 000 09/13/2025 stool for C diff negative Creatinine 0.9 SGOT/SGPT 26/25 glucose 197 HbA1C 07/02/2025 5.7 Potassium 3.8 Sodium 140 BUN 21 calcium 8.7 chloride 105 CO2 28 alk phos 99 total bilirubin 0.9 albumin 4.2 date of labs 09/10/2025 X ray SEE STUDIES 09/10/2025 acute abdominal series FINDINGS: The lungs are grossly clear. There is no evidence of effusion, pneumothorax or other significant pleural disease. Left-sided pacer is present. The patient is status post CABG. The heart size is normal. The abdomen exam demonstrates the visualized intestinal gas pattern to be unremarkable without evidence to suggest obstruction. There is no free intraperitoneal air. No abdominal radiopacities are seen in the abdomen. Extensive vascular calcifications in the pelvis. The patient is status post cholecystectomy. Compression fracture noted in the lower lumbar spine. IMPRESSION: No bowel obstruction or free air. Consultation Request Notes Referral Date Referring Provider Referred Provider Not es 09/23/2025 Jessie Velez Gastroenterology, .
[2025-09-24 10:09] LABS: Adenovirus F 40/41, stool Not Detected (NotDetected); Clostridium Difficile A/B, PCR Not Detected (NotDetected); Cyclospora Cayetanesis Not Detected (NotDetected); Plesimonas Shigalloides, PCR Not Detected (NotDetected); Salmonella, PCR Not Detected (NotDetected); Shiga-like toxin E coli Not Detected (NotDetected); Shigella Enterovasive E coli Not Detected (NotDetected); Vibrio, PCR Not Detected (NotDetected); Yersinia Entercolitica, PCR Not Detected (NotDetected)
--- OUTSIDE RECORDS SUMMARY | 2025-09-24 10:09 | XMS_ITS | Clinical Summary ---
Author Organization [facility] Address [address] [place] [address] Care Team Providers Care Transformer Assembler Name Role Phone Kai Shea MD Primary Care Provider [phone]- [phone] Jessica Perales DO Unavailable [phone] Allergies No known active allergies Medications atorvastatin [...] 07/21/2025 Immunizations Immunization Administration Dates Next Due [employer] COVID-19 Vaccine (Purple Cap) 12 + 01/16/2021,12/24/2020 [...] drink first t vane in the morning (EYE-SECONDS GRADER) to steady your nerves or to get [...] Visit [place] [facility] [address], [address] [place] [address] Debi Obando, MARY [address] [place] [address] Health Maintenance Due Date Last [...] or (1 - 1-dose 75+ series) 2025 [id number] Vaccine ( - 2024- season) 2025 10/08/2021, [...] Antibody Negative Negative 05/03/2024 5:39 PM EDT [facility] Blood Venous blood specimen / Unknown Venipuncture / Unknown 05/03/2024 4:48 PM EDT 05/03/2024 4:58 PM EDT Rome Dominguez MD LAB BLOOD ORDERABLES Final Result [facility] [address] [place] [address] from Last 3 Months or Most Recently Relevant to Health Maintenance Insurance MEDICARE [employer] Advance Directives Documents on File Type Date Recorded Patient Front End Assistant Expl anation Advance Directives and Living Will 05/04/2024 2:43 PM patient does not hav e an AD * Full Code (Latest Code Status on File) Date Activated Date Inactivated Comments 05/03/2024 10:21 PM 05/05/2024 2:20 PM Question Answer Comments Patient has decision-making capacity? Yes Care Teams Transformer Assembler Relationship Specialty Start Date End Date Kai Shea MD [address] [place] [address] PCP - General 03/13/21 Jessica Perales DO [address] [place] [address] Resident Neurology 06/16/21
--- OUTSIDE RECORDS SUMMARY | 2025-09-24 10:09 | XMS_ITS | Encounter Summary ---
Author Organization Healthcare Address [address] [place] [address] Care Team Providers Care Warranty Manager Name Role Phone Kai Shea MD Primary Care Provider [phone]- [phone] Jessica Perales DO Unavailable [phone] Encounter Details Date Type Department Care Team (Late st Contact Info) Description 11/05/2024 Orders Only [place] [facility] [address], [address]st [place] [address] [place], DO [address] [place] [phone] Neuropathy Social History Tobacco Use Types Packs/Day [...] drink first t vane in the morning (EYE-SUPERVISOR ASSEMBLING) to steady your nerves or to get [...] Visit [place] [facility] [address], [address] [place] [address] Debi Obando MBBS [address] [place] [address] documented as of this encounter Visit Diagnoses Diagnosis Neuropathy Mononeuritis of unspecified site documented in this encounter Additional Health Concerns Assessment Noted Time A fall risk assessment has been complete d for the patient 12/19/2023 3:03 PM EST A Body Mass Index follow-up plan has been documented for the patient 05/05/2024 11:32 AM EDT documented as of this encounter Care Teams Warranty Manager Relationship Specialty Start Date End Date Kai Shea MD [address] [place] [address] PCP - General 03/13/21 Jessica Perales DO [address] [facility] [address] [place] [address] Resident Neurology 06/16/21 documented as of this encounter
--- OUTSIDE RECORDS SUMMARY | 2025-09-24 10:09 | XMS_ITS | Encounter Summary ---
Author Organization Healthcare Address [address] [place] [address] Care Team Providers Care Estimator Printing Plate Making Name Role Phone Kai Shea MD Primary Care Provider [phone]- [phone] Jessica Perales DO Unavailable [phone] Encounter Details Date Type Department Care Team (Late st Contact Info) Description 12/31/2024 Lab Requisition [facility] [address] [place] [address] Valdo Carrillo, CARLOS [address] [place] [address] Encounter for general adult medical examination without [...] drink first t vane in the morning (EYE-BUSINESS DEVELOPER) to steady your nerves or to [...] Description 11/26/2025 3:30 PM EST Office Visit [place] [facility] [address], [address] [place] [address] Debi Obando, LAWANDA [address] [place] [address] documented as of this encounter Procedures Procedure Name Priority Date/Time Associated Diagnosis Comments BODY FLUID CULTURE AND GRAM STAIN Routine 12/31/2024 5:40 PM EST Encounter for general adult medical examination without abnormal findings documented in this encounter Results * (ABNORMAL) Body Fluid Culture and Gram Stain (12/31/2024 5:40 PM EST) Culture Light Growth 01/06/2025 10:47 AM EDT [facility] Culture Staphylococcus epidermidis(A) BASSAM 01/06/2025 10:47 AM EDT [facility] Comment: This isolate has been identified using the FDA Approved PHARMAJETyper CA System The organism value for this result has been updated. These results have been appended to the previously preliminary verified report. Edited result: Previously reported as Gram positive cocci on 01/02/2025 at 0908 EST. Gram Stain Result Numerous Polymorphonuclear leukocytes(A) 01/06/2025 10:47 AM EDT [facility] Gram Stain Result Rare Gram positive cocci in pairs(A) 01/06/2025 10:47 AM EDT [facility] Joint Fluid Synovial fluid [...] LAB MICROBIOLOGY - GENERAL ORDERABLES Final Result [facility] [address] [place] [address] documented in this encounter Visit Diagnoses Diagnosis [...] documented as of this encounter Care Teams Estimator Printing Plate Making Relationship Specialty Start Date End Date Kai Shea MD [address] [place] [address] PCP - General 03/13/21 Jessica Perales DO [address] [facility] [address] [place] [address] Resident Neurology 06/16/21 documented as of this encounter
--- OUTSIDE RECORDS SUMMARY | 2025-09-24 10:09 | XMS_ITS | Encounter Summary ---
Author Organization Healthcare Address [address] [place] [address] Care Team Providers Care Circuit Board Drafter Name Role Phone Kai Shea MD Primary Care Provider [phone]- [phone] Jessica Perales DO Unavailable [phone] Encounter Details Date Type Department Care Team (Late st Contact Info) Description 12/31/2024 Lab Requisition [facility] [address] [place] [address] Valdo Carrillo, CARLOS [address] [place] [address] [place] [address] Encounter for general adult medical examination without [...] place to sleep or slept in a usp (including now)? No 05/04/2024 PHQ-9 Answer Date [...] drink first t vane in the morning (EYE-SLITTER SCORER) to steady your nerves or to get [...] Visit [place] [facility] [address], [address] [place] [address] Debi Obando, MBBS [address] [place] [address] documented as of this encounter [...] LAB HEMATOLOGY METHOD 01/01/2025 2:08 PM EST [facility] Specimen Source, Body Fluid LAB HEMATOLOGY METHOD 01/01/2025 2:08 PM EST [facility] Clinical Diagnosis, Body Fluid Joint fluid. Neuropathy. History of plasma cell neoplasm and Parkinson's LAB HEMATOLOGY METHOD 01/01/2025 2:08 PM EST [facility] Interpretation , Body Fluid No evidence of malignancy; acute inflammatory cells. See comment A resident was involved in the service. I attest I examined the relevant preparations for the specimens and confirmed the diagnosis or interpretation. 01/01/2025 2:08 PM EST [facility] Pathologist Signature, Body Fluid 01/01/2025 2:08 PM EST [facility] Comment:Reviewed by: Prashanth Montiel MD LAB CP ASR DISCLAIMER Yes 01/01/2025 2:08 PM EST [facility] Joint Fluid 12/31/2024 3:15 PM EST 12/31/2024 6:01 PM EST Narrative [facility] - 01/01/2025 2:08 PM EST Correlation with microbiology studies is suggested. us Valdo GONZALEZ LAB BODY FLUIDS AND STOOLS ORDERABLES Final Result [facility] [address] [place] [address] * (ABNORMAL) Body Fluid Cell Count w/ Diff (12/31/2024 3:15 PM EST) Color, Body fluid Yellow LAB HEMATOLOGY METHOD 12/31/2024 8:00 PM EST [facility] Appearance, Body fluid Cloudy(A) LAB HEMATOLOGY METHOD 12/31/2024 8:00 PM EST [facility] Volume, Body fluid 2.5 cc LAB HEMATOLOGY METHOD 12/31/2024 8:00 PM EST [facility] Fluid Container Specimen received in EDTA tube LAB HEMATOLOGY METHOD 12/31/2024 8:00 PM EST [facility] Red Blood Cell Count, Body fluid 5,000 uL LAB HEMATOLOGY METHOD 12/31/2024 8:00 PM EST [facility] Total Nucleated Cell Count, Body fluid 44,000 uL LAB HEMATOLOGY METHOD 12/31/2024 8:00 PM EST [facility] Neutrophils %, Body fluid 95 % LAB HEMATOLOGY METHOD 12/31/2024 8:00 PM EST [facility] Lymphocytes %, Body fluid 1 % LAB HEMATOLOGY METHOD 12/31/2024 8:00 PM EST [facility] Monocytes/Macro phages %, Body fluid 4 % LAB HEMATOLOGY METHOD 12/31/2024 8:00 PM EST [facility] Eosinophils %, Body fluid 0 % LAB HEMATOLOGY METHOD 12/31/2024 8:00 PM EST [facility] Lining/Mesothel ial Cells %, Body fluid 0 % LAB HEMATOLOGY METHOD 12/31/2024 8:00 PM EST [facility] Neutrophils Absolute (PMN), Body fluid 41,800 uL LAB HEMATOLOGY METHOD 12/31/2024 8:00 PM EST [facility] Lymphocytes Absolute, Body fluid 440 uL LAB HEMATOLOGY METHOD 12/31/2024 8:00 PM EST [facility] Monocytes/Macro phages Absolute, Body fluid 1,760 uL LAB HEMATOLOGY METHOD 12/31/2024 8:00 PM EST [facility] Eosinophils Absolute, Body fluid 0 uL LAB HEMATOLOGY METHOD 12/31/2024 8:00 PM EST [facility] Basophils Absolute, Body fluid 0 uL LAB HEMATOLOGY METHOD 12/31/2024 8:00 PM EST [facility] Lining/Mesothel ial Cells Absolute, Body fluid 0 uL LAB HEMATOLOGY METHOD 12/31/2024 8:00 PM EST [facility] Comment, Body fluid None LAB HEMATOLOGY METHOD 12/31/2024 8:00 PM EST [facility] Comment:This is an appended report. These results have been appended to a previously preliminary verified report. Basophils %, Body fluid 0 % LAB HEMATOLOGY METHOD 12/31/2024 8:00 PM EST [facility] Joint Fluid 12/31/2024 3:15 PM EST 12/31/2024 6:01 PM EST Valdo GONZALEZ LAB BODY FLUIDS AN D STOOLS ORDERABLES NO SPECIMEN TYPE/SOURCE Final Result [facility] [address] [place] [address] * (ABNORMAL) Synovial fluid, crystal (12/31/2024 3:15 PM EST) Crystals, Joint Fluid Calcium Pyrophosphate Crystals Present(A) No Crystals Present 12/31/2024 11:06 PM EST [facility] Joint Fluid 12/31/2024 3:15 PM EST 12/31/2024 6:01 PM EST Narrative [facility] - 12/31/2024 11:06 PM EST Under compensated polarized light microscopy rhomboidal positively birefringent crystals are seen consistent with Calcium Pyrophosphate. The presence of steroid crystals may result in a false positive. Correlate results with recent history up to 2 months of steroid injection. Valdo GONZALEZ LAB BODY FLUIDS AND STOOLS ORDERABLES Final Result [facility] [address] [place] [address] documented in this encounter Visit Diagnoses Diagnosis [...] documented as of this encounter Care Teams Circuit Board Drafter Relationship Specialty Start Date End Date Kai Shea MD [address] [place] [address] PCP - General 03/13/21 Jessica Perales DO [address] [place] [address] Resident Neurology 06/16/21 documented as of this encounter
--- OUTSIDE RECORDS SUMMARY | 2025-09-24 10:09 | XMS_ITS | Encounter Summary ---
Author [place] [address] Care Team Providers Care Checkering Machine Adjuster Name Role Phone Unavailable Primary Care Provider Unavailabl e Encounter Details Date Type Department Care Team (Late st Contact Info) Description 01/07/2023 Orders Only [facility] [place] [id number] Barbara Bess MD [address] [place] [address] Social History Tobacco Use Types Packs/Day Years [...] AM EST) 01/07/2023 9:45 AM EST Narrative [facility] - 01/24/2023 5:22 PM EDT Requesting Provider: GIOVANNA Chaney Specimen = [id number] us Barbara Bess MD PATHOLOGY ORDERABLES Final Resul t [facility] [address] [place] [address] documented in this encounter Visit Diagnoses Not on filedocumented in this encounter
--- OUTSIDE RECORDS SUMMARY | 2025-09-24 10:09 | XMS_ITS | Clinical Summary ---
Author Organization [facility] Address [address] [facility] [address] [place] [address] Phone Care Team Providers Care Solar Energy Advisor Name Role Phone Unavailable Primary Care Provider [...] MEDICARE [place] PART A AND B [facility] [place] [address] [place]
--- OUTSIDE RECORDS SUMMARY | 2025-09-24 10:10 | XMS_ITS | Encounter Summary ---
Author Organization [place] [address] Care Team Providers Care Press Worker Helper Name Role Phone Unavailable Primary Care Provider Unavailabl e Encounter Details Date Type Department Care Team (Late st Contact Info) Description 01/07/2023 Orders Only [facility] [place] [phone] Barbara Bess MD [address] [place] [phone] Social History Tobacco Use Types Packs/Day Years [...] AM EST) 01/07/2023 9:45 AM EST Narrative [facility] - 01/17/2023 1:28 PM EDT Requesting Provider: GIOVANNA Chaney Specimen = [id number] us Barbara Bess MD PATHOLOGY ORDERABLES Final Resul t [facility] [address] [place] [address] documented in this encounter Visit Diagnoses Not on filedocumented in this encounter
--- OUTSIDE RECORDS SUMMARY | 2025-09-24 10:10 | XMS_ITS | Encounter Summary ---
Author Organization [place] [address] Care Team Providers Care Show Card Writer Name Role Phone Unavailable Primary Care Provider Unavailabl e Encounter Details Date Type Department Care Team (Late st Contact Info) Description 01/07/2023 Orders Only [facility] [place] [id number] Barbara Bess MD [address] [place] [address] Social History Tobacco Use Types Packs/Day Years [...] EDT Requesting Provider: GIOVANNA Chaney Specimen = [id number] us Barbara Bess MD PATHOLOGY ORDERABLES Final Resul t Performing Organization Address City/State/[facility] Co de Phone Number [facility] [address] [place] [address] documented in this encounter Visit Diagnoses Not on filedocumented in this encounter
--- OUTSIDE RECORDS SUMMARY | 2025-09-24 10:10 | XMS_ITS | Clinical Summary ---
Author Organization [facility] Address [address] [place] [address] Care Team Providers Care Brush Holder Assembler Name Role Phone Kai Shea MD [...] & B LAVELL BLUE CROSS Care Teams Brush Holder Assembler Relationship Specialty Start Date End Date Kai Shea MD [address] [place] [facility] [address] [facility] [address] [place] [address] PCP - General Family Medicine 04/05/23
--- OUTSIDE RECORDS SUMMARY | 2025-09-24 10:11 | XMS_ITS | Encounter Summary ---
Author Organization Healthcare Address [address] [place] [address] Care Team Providers Care Chief Ii Dispatcher Name Role Phone Kai Shea MD Primary Care Provider +1- [phone] Jessica Perales DO Unavailable [phone] Encounter Details Date Type Department Care Team (Late st Contact Info) Description 01/15/2025 Lab Requisition [facility] [address] [place] [address] Sara Alerge [address] [place] [address] [place] [address] Encounter for general adult medical examination without [...] drink first t vane in the morning (EYE-CERTIFIED CAREGIVER) to steady your nerves or to get [...] Visit [place] [facility] [address], [address] [place] [address] Debi Obando, MBBS [address] [place] [address] documented as of this encounter [...] 0 PM EDT 01/15/2025 2:41 PM EDT [facility] BODY FLUIDS AND STOOLS ORDER MARYLIN Final Result Performing Organization Address [facility] Co de Phone Number [facility] [address] [place] [address] * (ABNORMAL) Joint Fluid Crystals (01/15/2025 12:10 [...] up to 2 months of steroid injection. [facility] BODY FLUIDS AND STOOLS ORDER MARYLIN Final Result Performing Organization Address [facility] Co de Phone Number [facility] [address] [place] [address] * (ABNORMAL) Body Fluid Cell Count w/ [...] Final Result [facility] [address] [place] [address] documented in this encounter Visit Diagnoses Diagnosis [...] documented as of this encounter Care Teams Chief Ii Dispatcher Relationship Specialty Start Date End Date Kai Shea MD [address] [place] [address] PCP - General 03/13/21 Jessica Perales DO [address] [facility] [address] [place] [address] Resident Neurology 06/16/21 documented as of this encounter
--- OUTSIDE RECORDS SUMMARY | 2025-09-24 10:11 | XMS_ITS | Patient Health Record ---
Author Organization [facility] Address [address] [facility] [address] [place], [place] [id number] Care Team Providers Care Adult Basic Education Manager Name Role Phone Nas Shea Primary Care Provider Jessie Velez Unavailable [phone] Farida Ponce Unavailable [phone] Allergies No Known Allergies Results Component Value Reference Range Notes P-Hemoglobin A1C Reviewed date:02/07/2025 08:17:27 AM Interpretation: Performing Lab: Notes/Report: Test performed by [facility] [employer] [place] , [address], [place] [address] Renato Cobb MD, Accounts Executive CLIA: [id number] Hemoglobin A1C 6.9 <5.7 % The following HbA1c ranges recommended by the [place] [employer] (ADA) may be used as an aid in the diagnosis of diabetes mellitus. HbA1c Suggested Diagnosis >=6.5% Diabetic 5.7% - 6.4% Pre-Diabetic <5.7% Non-Diabetic P-TSH Reviewed date:02/07/2025 08:17:27 AM Interpretation: Performing Lab: Notes/Report: Test performed by [facility] [employer] [address], [address], [place] [address] Renato Cobb MD, Accounts Executive CLIA: [id number] TSH 2.88 0.43-5.25 mU/L Estimated Average Glucose Reviewed date:02/07/2025 08:17:27 AM Interpretation: Performing Lab: Notes/Report: Test performed by [facility], [address] , [address], [place] [address] Renato Cobb MD, Accounts Executive CLIA: [id number] Estimated Average Glucose (eAG) 151 Estimated Average [...] 86 Performing Lab: Notes/Report: Test performed by [email or web address], [facility] , [address], [place] [address] Renato Cobb MD, Accounts Executive CLIA: [id number] Sodium 142 135-145 mmol/L Potassium 4.4 3.5-5.3 [...] 48 Performing Lab: Notes/Report: Test performed by [email or web address], [address] , [facility], [place] [address] Renato Cobb MD, Accounts Executive CLIA: [id number] Cholesterol 93 <200 mg/dL Triglycerides 84 <150 [...] Interpretation:4.19 Performing Lab: Notes/Report: Test performed by [facility] [address] [place] [address] , [place] [address] Renato Cobb MD, Accounts Executive CLIA: [id number] TSH 4.19 0.43-5.25 mU/L P-Microalbumin/Creatinine, R andom Urine Sample Reviewed date:07/04/2025 08:31:36 AM Interpretation:A/C 44 Performing Lab: Notes/Report: Test performed by [facility] [address] [place] [address] [address], [place] [address] Renato Cobb MD, Accounts Executive CLIA: [id number] Albumin/Creatinine Ratio, Urine 44 0-30 ug/m g Microalbumin, Urine, Random 5.6 Creatinine, Urine 128.0 P-Digoxin (Not yet reviewed by provider) Interpretation:1.0 Performing Lab: Notes/Report: Test performed by [facility] [address] [place] [address] , [address], [place] [address] Prashant Walter MD, PhD, FCAP, Accounts Executive CLIA: [id number] Digoxin 1.0 0.8-2.0 ng/mL P-TSH (Not yet reviewed by juanita clay) Interpretation:5.17 Performing Lab: Notes/Report: Test performed by [facility] [address] [place] [address] , [address], [place] [address] Prashant Walter MD, PhD, AP, Accounts Executive CLIA: [id number] TSH 5.17 0.43-5.25 mU/L H-BMP Reviewed date:01/02/2025 08:41:58 AM Interpretation: Performing [...] Interpretation:Normal Performing Lab: Notes/Report: Test performed by [facility] [address] , [place] [address] Renato Cobb MD, Accounts Executive CLIA: [id number] TSH 2.38 0.43-5.25 mU/L P-PSA Reviewed date:10/20/2024 11:28:50 AM Interpretation:4.34 Performing Lab: Notes/Report: Test performed by [facility] [address] , [place] [address] Renato Cobb MD, Accounts Executive CLIA: [id number] PSA 4.34 <4.00 ng/mL Please note this is an ultrasensitive PSA assay with a lower limit of detection of 0.014 ng/mL. This test is performed by the Becki ECLIA methodology. Values obtained with different assay methods or kits cannot be directly compared. P-Lipid Panel Reviewed date:10/20/2024 11:28:49 AM Interpretation:Normal Performing Lab: Notes/Report: Test performed by [facility] [address] , [place] [address] Renato Cobb MD, Accounts Executive CLIA: [id number] Cholesterol 128 <200 mg/dL Triglycerides 147 <150 [...] Duration) Notes Start Date End Date Status Aspirin 81 81 MG 1 tablet Orally Once a day; Duration: 90 days Active Eliquis 5 MG as directed Orally t wice a day Active Omeprazole 40 mg 1 capsule orally onc e a day; Duration: 90 days Active Knee Brace - as directed 09/23/2025 Acti ve Atorvastatin Calcium 40 MG 1 tablet at b edtime Orally Once a day; Duration: 90 days Active Losartan Potassium 25 MG 1 tablet Orally twice a day Active traZODone HCl 50 MG 1/2-1 tablet at bedt cuca as needed Orally Once a day; Duration: 30 days Active Digoxin 125 MCG 1 tablet Orally Active Levothyroxine Sodium 75 MCG 1 tab(s) ora lly once a day; Duration: 90 days Active Accu-Chek Guide w/Device once a day 07/24/2025 Active Accu-Chek Softclix Lancets - check glucose once a day; Duration: 100 days 07/24/2025 Active Jardiance 10 MG 1 tablet Orally Once a day; Duration: 90 days Active Accu-Chek Strips daily; Duration: 100 days 07/24/2025 Active Tamsulosin HCl 0.4 mg 1 capusle orally o nce a day; Duration: 90 days Active Bisoprolol Fumarate 10 MG take 10mg in A M and 5 mg in PM; Duration: 90 days Active traMADol HCl 50 MG 1 tab Orally twice a day prn pain 07/02/2025 Active Immunizations Vaccine Route Administration Date Status [...] W/U Status Risk Notes Problem Coronary arteriosclerosis (84947516) 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) Active confirmed Problem Insomnia (383847380) Insomnia (G47.00) Active confirmed Problem History of circulatory system disease (925856630) History of ASCVD (Z86.79) Active confirmed Problem Essential hypertension (05699710) Essential hypertension (I10) Active confirmed Problem Diabetes mellitus with neuropathy (946343186) Diabetes mellitus with neuropathy (E11.40) Active confirmed Problem Benign prostatic hyperplasia (167154747) BPH (benign prostatic hyperplasia) (N40.0) Active confirmed Problem Peripheral neuropathy (861085890) Peripheral neuropathy (G62.9) Active confirmed Problem Hearing loss (52857723) Hearing loss (H91.90) Active confirmed Problem Chronic tension-type headache (604117456) Chronic tension-type headache, not intractable (G44.229) Active confirmed Problem Chronic pain syndrome (419390489) Chronic pain syndrome (G89.4) Active confirmed Problem Chronic atrial fibrillation (340514439) Chronic atrial fibrillation (I48.2) Active confirmed Problem Hyperlipidemia due to type 2 diabetes mellitus (disorder) (614785889411754) Hyperlipidemia associated with type 2 diabetes mellitus (E11.69) Active confirmed Problem Diabetes mellitus (37135389) Diabetes mellitus (E11.9) Active confirmed Problem Gastroesophageal reflux disease (434827827) GERD without esophagitis (K21.9) Active confirmed Problem Unsteady gait (36144084) Unsteady gait (R26.81) Active confirmed Problem Gastroesophageal reflux disease without esophagitis (662287787) Gastroesophageal reflux disease without esophagitis (K21.9) Active confirmed Problem Acquired hypothyroidism (263483598) Acquired hypothyroidism (E03.9) Active confirmed Problem Cardiac pacemaker in situ (624140346) Pacemaker (Z95.0) Active confirmed Problem Lower urinary tract symptoms due to benign prostatic hypertrophy (51719422425515) Benign non-nodular prostatic hyperplasia with lower urinary tract symptoms (N40.1) Active confirmed Problem Displacement of lumbar intervertebral disc without myelopathy (33983830) Bulging lumbar disc (M51.26) Active confirmed Problem Cardiomyopathy (28314923) Cardiomyopathy (I42.9) Active confirmed Problem Multiple myeloma (556052515) Multiple myeloma (C90.00) Active confirmed Problem Dyslipidemia (311783082) Dyslipidemia (E78.5) Active confirmed Problem Skin ulcer (disorder) (77199144) Skin ulcer, limited to breakdown of skin (L98.491) Active confirmed Problem Restless legs (46376228) RLS (restless legs syndrome) (G25.81) Active confirmed Problem Peripheral circulatory disorder associated with diabetes mellitus (773544742) 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) Active confirmed Problem Lumbar spondylosis with myelopathy (74621718) Lumbar spondylosis with myelopathy (M47.16) Active confirmed Problem Significant coronary bypass graft disease (837502731) Coronary artery disease involving coronary bypass graft of lower brule heart without angina pectoris (I25.810) Active confirmed Problem Chronic atrial fibrillation (877104937) Chronic atrial fibrillation (I48.20) Active confirmed Problem Automatic implantable cardiac defibrillator in situ (254894577) Cardiac defibrillator in place (Z95.810) Active confirmed Problem Monoclonal gammopathy of uncertain significance (disorder) (117725129) 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) Active confirmed Problem Pseudogout (513420425) Pseudogout (M11.20) Active confirmed Vital Signs Heart Rate 71 /min 09/23/2025 Blood pressure diastolic 80 mm Hg 09/23/2025 Height 72 in 09/23/2025 Blood pressure systolic 128 mm Hg 09/23/2025 Weight 185 lbs 09/23/2025 BMI 25.09 kg/m2 09/23/2025 Encounters Encounter Location Date [facility] [address] [id number] 10/18/2024 Nas Shea Type 2 diabetes mellitus [...] C90.00 and Screening for prostate cancer Z12.5 [facility] [address] [id number] 01/21/2025 Jessie Velez Septic arthritis of knee M00.9 and Abrasions of multiple sites T07.XXXA [facility] [address] [place] [id number] 02/05/2025 R Jesus Monse 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.59 ; Staphylococcal arthritis of right knee M00.061 ; Acquired hypothyroidism E03.9 ; Multiple myeloma C90.00 ; Diabetes mellitus with neuropathy E11.40 ; Dyslipidemia E78.5 ; Essential hypertension I10 ; Cardiomyopathy I42.9 and BMI 25.0-25.9,adult Z68.25 [facility] [address] [place] [id number] 03/19/2025 Jessie Velez Edema leg R60.0 ; [...] hyperplasia) N40.0 and Chronic atrial fibrillation I48.20 [facility] [address] [id number] 03/26/2025 Jessie Velez Hypotension I95.9 ; Edema of both legs R60.0 and BMI 28.0-28.9,adult Z68.28 [facility] [address] [id number] 04/25/2025 R Jesus Monse Pacemaker Z95.0 ; Sk in tear of forearm without complication S51.819A ; Cardiomyopathy I42.9 ; History of ASCVD Z86.79 ; BPH (benign prostatic hyperplasia) N40.0 ; Diabetes mellitus E11.9 ; Peripheral neuropathy G62.9 ; Multiple myeloma C90.00 and BMI 25.0-25.9,adult Z68.25 [facility] [address] [id number] 06/05/2025 Farida Ponce Multiple myeloma C90 .00 ; Orbital cellulitis, right H05.011 and BMI 26.0-26.9,adult Z68.26 [facility] [facility] [address] [place] [id number] 06/07/2025 Farida Ponce Orbital cellulitis, right H05.011 ; Cutaneous abscess of face L02.01 and BMI 27.0-27.9,adult Z68.27 [facility] [facility] [address] [place], [place] [id number] 06/13/2025 R Jesus Monse Orbital cellulitis, right H05.011 ; Cutaneous abscess of face L02.01 and BMI 26.0-26.9,adult Z68.26 [facility] [address] [place], [place] [id number] 07/02/2025 R Jesus Monse Adult general medica l examination Z00.00 ; Essential hypertension I10 ; Dyslipidemia E78.5 ; Acquired hypothyroidism E03.9 ; MGUS (monoclonal gammopathy of unknown significance) D47.2 ; Peripheral neuropathy G62.9 ; Multiple myeloma C90.00 ; 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.59 ; Insomnia G47.00 and BMI 26.0-26.9,adult Z68.26 [facility] [facility] [facility] [address] [place] [id number] 09/23/2025 Jessie Velez Acute diarrhea R19.7 and Septic arthritis of knee M00.9 [facility] [facility] [address] [place] [id number] 10/19/2024 R Jesus Monse ASCVD (arteriosclero tic cardiovascular disease) I25.10 [facility] [facility] [address] [place], [place] [id number] 10/20/2024 R Jesus Monse [facility] [facility] [facility] [address] [place] [id number] 01/03/2025 R Jesus Monse [facility] [facility] [facility] [address] [place] [id number] 02/07/2025 R Jesus Monse [facility] [address] [place], [place] [id number] 03/19/2025 R Jesus Monse [facility] [address] [place], [place] [id number] 05/21/2025 R Jesus Monse [facility] [address] [place], [place] [id number] 06/18/2025 R Jesus Monse [facility] [address] [place], [place] [id number] 07/04/2025 R Jesus Monse [facility] [address] [place], [place] [id number] 07/19/2025 R Jesus Monse [facility] [address] [place], [place] [id number] 07/29/2025 R Jesus Monse Insomnia G47.00 ; BP H (benign prostatic hyperplasia) N40.0 ; Dyslipidemia E78.5 and Acquired hypothyroidism E03.9 [facility] [address] [place], [place] [id number] 09/11/2025 R Jesus Monse Assessments Encounter Date Diagnosis (ICD Code) Assessment Notes Treatment Notes Treatment Clinical Notes Section Notes 10/18/2024 Hyperlipidemia associated with type 2 diabetes mellitus (ICD-10 - E11.69) 10/18/2024 Type 2 diabetes mellitus with other circulatory complication (ICD-10 - E11.59) 01/21/2025 Septic arthritis of knee (ICD-10 - [...] control screening. 07/29/2025 Insomnia (ICD-10 - G47.00) 09/23/2025 Septic arthritis of knee (ICD-10 - M00.9) resolved and now in PT; knee gives away and soft splint not working 09/23/2025 Acute diarrhea (ICD-10 - R19.7) encouraged bland diet with several small feedings during the day; to continue with good water intake; to add Glucerna and take a MVI; stool for Cdff was neg; will check full diarrhea panel 10/19/2024 ASCVD (arteriosclerotic cardiovascular disease) (ICD-10 - I25.10) 07/29/2025 BPH (benign prostatic hyperplasia) (ICD-10 - [...] disease) (ICD-10 - I25.10) discussed with Carlos Summerfield cardiology ; reviewed labs and ECHO 02/05/2025 [...] - E03.9) 10/18/2024 Dyslipidemia (ICD-10 - E78.5) 03/19/2025 Multiple myeloma (ICD-10 - C90.00) follows with dr. Eason; currently on vacation [place] 02/05/2025 Dyslipidemia (ICD-10 - E78.5) 04/25/2025 Diabetes mellitus (ICD-10 - E11.9) 07/02/2025 [...] counseling provided. Moderate Complexity Plan Of Treatment Pending Test Test Name Order Date Diarrhea Panel ([facility]) 09/23/2025 P-Digoxin 09/23/2025 P-TSH 09/23/2025 Next Appt Details Provider Name:Nas Jesus Anand rodney, 11/05/2025 09:15:00 AM, [address], [address], [place], [place], [phone], Insurance Providers Payer Name Payer Address Payer Phone Subscriber Number Group Number Insured Name Patient Relationship to Insured Coverage Start Date Coverage End Date MEDICARE PART B [address] [address] [place] [id number] [phone] [id number] Kaleb Swan Self - patient is the insured [facility]LY [facility] [employer] [facility] [address] [place] [address] [phone] [id number] Kaleb Swan Self - patient is the insured Medical [...] - Dr. Yumi Mcwilliams 12/2022 - Negative pacemaker Surgical History Surgery Date(Month/Year) Coronary stents 03/08/2007 Open Heart Surgery-Dr Mott @ [facility] thoracentesis 12/2015 Laparoscopic cholecystectomy - Dr. Rolanda carballo 09/06/2016 cardiac defibirilltor placed-Dr Yates 07/04/2020 cataract surgery-right eye 12/2020 Knee Surgery - Due to Infection -02/17 25 Cardiac Pacemaker 04/24/2025 Hospitalization History Reason Date(Month/Year) [facility] UTC - Fall 11/14/2023 [facility]-tachycardia 07/02-12/2019 Left heart cath/[place]/ normal flow of revascularized vessels 02/2017 [facility] pancreatitis 09/02/2016 [facility] ER-Afib 01/2016 C-scope - Dr. Kimball 09/2013 [facility] ER-suture to pinky finger of left [place] 09/25/2009
--- OUTSIDE RECORDS SUMMARY | 2025-09-24 10:11 | XMS_ITS | Encounter Summary ---
Author Organization [place] [address] Care Team Providers Care Junior Oracle Dba Name Role Phone Unavailable Primary Care Provider Unavailabl e Encounter Details Date Type Department Care Team (Late st Contact Info) Description 01/07/2023 [facility] Only [facility] [place] [id number] Barbara Bess MD [address] [place] [phone] Social History Tobacco Use Types Packs/Day Years [...] Procedure Name Priority Date/Time Associated Diagnosis Comments [employer] STANDARD LEUKEMIA/LYMPHOMA PANEL Routine 01/07/2023 9:45 AM EST documented in this encounter Results * NEOGENOMICS STANDARD LEUKEMIA/LYMPHOMA PANEL (01/07/2023 9:45 AM EST) 01/07/2023 9:45 AM EST Narrative [facility] - 01/10/2023 3:22 PM EDT Requesting Provider: GIOVANNA Chaney Specimen = [id number] us Barbara Bess MD PATHOLOGY ORDERABLES Final Resul t Performing Organization Address City/State/[facility] Co de Phone Number [facility] [address] [place] [address] documented in this encounter Visit Diagnoses Not on filedocumented in this encounter
--- OUTSIDE RECORDS SUMMARY | 2025-09-24 10:11 | XMS_ITS | Encounter Summary ---
Author Organization Healthcare Address [address] [place] [address] Care Team Providers Care Office Specialist Name Role Phone Kai Shea MD Primary Care Provider [phone] Jessica Perales DO Unavailable [phone] Encounter Details Date Type Department Care Team (Late st Contact Info) Description 09/17/2021 Lab Requisition [facility] [address] [place] [address] Mar Diaz MD [address] [facility] [address] [place] [phone] Decreased white blood cell count, unspecified Social [...] Visit [place] [facility] [address] [place] [phone] Debi Obando MBBS [address] [place] [address] documented as of this encounter Procedures Procedure Name Priority Date/Time Associated Diagnosis Comments BONE MARROW EXAM CONSULT Routine 09/17/2021 9:40 AM EST Decreased white blood cell count, unspecified documented in this encounter Results * Bone Marrow Consult (09/17/2021 9:40 AM EST) Case Report Bone Marrow Case: [id number] Authorizing Provider: Mar Diaz MD Collected: 09/17/2021939 Ordering Location: [facility] Lab Received: 09/17/2021 0940 Pathologist: Jen Tesfaye MD Specimen: Bone Marrow Biopsy, [id number] 09/21/2021 1:36 PM EST [facility] Final Diagnosis PERIPHERAL BLOOD AND BONE MARROW, POSTERIOR ILIAC CREST (PERIPHERAL SMEAR, ASPIRATE SMEAR, AND CORE BIOPSY): - KAPPA RESECTED PLASMA CELL NEOPLASM, REPRESENTING APPROXIMATELY 20% OF HYPERCELLULAR BONE MARROW SEE COMMENT 09/21/2021 1:36 PM EST [facility] at 1336 EST Comment The differential diagnosis includes smoldering myeloma and a plasma cell myeloma. Correlation with complete radiologic and laboratory studies is required for final diagnosis. 09/21/2021 1:36 PM EST [facility] Clinical Information D72.819 - Decreased white [...] . Blasts are not increased. 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 Plasma cells are increased and account for [...] Gain of 11q/CCND1 09/21/2021 1:36 PM EST [facility] Gross Description A. [id number] Received along with a corresponding pathology report from [facility] are 19 slide(s) labeled outside case: [id number] collected on 01/08/2021. 09/21/2021 1:36 PM EST [facility] Note: A resident was involved in the service. I attest I examined the relevant preparations for the specimens and confirmed the diagnosis or interpretation. 09/21/2021 1:36 PM EST [facility] Bone Marrow Specimen from bone marrow obtained by biopsy / Unknown 09/17/2021 9:40 AM EST 09/17/2021 9:40 AM EST us Mar Diaz MD LAB PATHOLOGY ORDERABLES Rosa godinez Result [facility] [address] [place] [address] documented in this encounter Visit Diagnoses Diagnosis Decreased white blood cell count, unspecified documented in this encounter Additional Health Concerns Assessment Noted Time A fall risk assessment has been complete d for the patient 2021 1:47 PM EDT documented as of this encounter Care Teams Office Specialist Relationship Specialty Start Date End Date Kai Shea MD [address] [place] [address] PCP - General 03/13/21 Jessica Perales DO [address] [place] [address] Resident Neurology 06/16/21 documented as of this encounter
== END 2025-09-24 23:59 | disposition home or self-care (01) ==
LOC: LAB 10:04
PROVIDERS: PCP Family Medicine; Visit Provider Nurse Practitioner Family
DX: R19.7 Diarrhea, unspecified (principal)
CPT/HCPCS: 87507

== ENCOUNTER 2025-10-14 10:23 | Outpatient (CLI) | payer MEDICARE, BC, SELFPAY ==
[2025-10-14 10:30] LABS: Microscopic, Urine URINE MICROSCOPIC (MICROSCOPIC)
[2025-10-14 11:19] LABS: Hematocrit 42.1 % (42.0-52.0); Hemoglobin 13.3 g/dL (14.1-18.0); Immature Granulocytes % 0.2 %; Mean Corpuscular HGB Conc 31.6 g/dL (31.8-35.4); Mean Corpuscular Hemoglobin 28.9 pg (27.0-31.2); Mean Corpuscular Volume 91.3 fl (80-94); Nucleated Red Blood Cells % 0 %; Platelet Count 132 K/mm3 (142-424); Red Blood Count 4.61 M/mm3 (4.60-6.20); Red Cell Distribution Width-SD 55.8 fL; White Blood Count 4.2 K/mm3 (4.8-10.8)
[2025-10-14 11:32] LABS: Bilirubin,Urine Negative (Negative); Color,Urine YELLOW (Yellow); Glucose,Urine (UA) 3+ (Negative); Ketones,Urine Negative (Negative); Leukocyte Esterase,Urine Negative (Negative); PH,Urine 5.5 (5.0-8.5); Protein,Urine TRACE (Negative); Specific Gravity, Urine 1.015 (1.005-1.030); Urobilinogen,Urine 0.2 EU/dl (0.2)
[2025-10-14 11:39] LABS: Albumin Level 4.2 g/dl (3.5-5.0); Chloride 103 mmol/L (98-107); Potassium 4.6 mmoL/L (3.5-5.1); Sodium 136 mmol/L (136-145)
[2025-10-14 11:42] LABS: Alanine Aminotransferase 25 U/L (12-78); Albumin/Globulin Ratio 1.7 (1.1-1.8); Alkaline Phosphatase 72 U/L (38-126); Anion Gap 5.6 mEq/L (5-15); Aspartate Amino Transferase 26 U/L (17-59); Bilirubin,Total 0.7 mg/dl (0.2-1.3); Blood Urea Nitrogen 21 mg/dl (9-20); Calcium 9.1 mg/dl (8.4-10.2); Carbon Dioxide 32 mmol/L (22.0-30.0); Creatinine,Serum 1.00 mg/dl (0.66-1.25); Estimated Glomerular Filt Rate 73 ml/min (>60); GFR (African American) 88 ML/MIN (>60); Globulin 2.5 g/dL (1.3-3.2); Glucose 139 mg/dl (74-100); Total Protein,Serum 6.7 g/dl (6.3-8.2)
== END 2025-10-14 23:59 | disposition home or self-care (01) ==
PROVIDERS: PCP Family Medicine; Visit Provider Physician Assistant
DX: E78.49 Other hyperlipidemia (principal); R35.0 Frequency of micturition; I10 Essential (primary) hypertension; Z79.01 Long term (current) use of anticoagulants
CPT/HCPCS: 36415; 80053; 81001; 85025

== ENCOUNTER 2025-10-29 09:32 | Outpatient (CLI) | payer MEDICARE, BC, SELFPAY ==
--- OUTSIDE RECORDS SUMMARY | 2025-10-29 09:36 | XMS_ITS | Encounter Summary ---
Author Organization [place] [address] Care Team Providers Care Edge Inker Uppers Name Role Phone Unavailable Primary Care Provider Unavailabl e Encounter Details Date Type Department Care Team (Late st Contact Info) Description 01/07/2023 Orders Only [facility] [place] [phone] Barbara Bess MD [address] [place] [phone] Social History Tobacco Use Types Packs/Day Years [...] EDT Requesting Provider: GIOVANNA Chaney Specimen = [id number] us Barbara Bess MD PATHOLOGY ORDERABLES Final Resul t [facility] [address] [place] [address] documented in this encounter Visit Diagnoses Not on filedocumented in this encounter
--- OUTSIDE RECORDS SUMMARY | 2025-10-29 09:36 | XMS_ITS | Encounter Summary ---
Author Organization [place] [address] Care Team Providers Care Steward Dishwasher Name Role Phone Unavailable Primary Care Provider Unavailabl e Encounter Details Date Type Department Care Team (Late st Contact Info) Description 01/07/2023 [facility] [place] [phone] Barbara Bess MD [address] [place] [phone] Social History Tobacco Use Types Packs/Day Years [...] EDT Requesting Provider: GIOVANNA Chaney Specimen = [id number] us Barbara Bess MD PATHOLOGY ORDERABLES Final Resul t [facility] [address] [place] [address] documented in this encounter Visit Diagnoses Not on filedocumented in this encounter
--- OUTSIDE RECORDS SUMMARY | 2025-10-29 09:36 | XMS_ITS | Clinical Summary ---
Author Organization [facility] Address [address] [place] [address] Care Team Providers Care Practice Consultant Name Role Phone Jesus Shea MD Primary Care Provider [phone] Jessica Perales DO Unavailable [phone] Allergies No known active allergies Medications atorvastatin [...] 07/21/2025 Immunizations Immunization Administration Dates Next Due happin! COVID-19 Vaccine (Purple Cap) 12 + 01/16/2021,12/24/2020 [...] drink first t vane in the morning (EYE-CHILDREN'S BOOK AUTHOR) to steady your nerves or to get rid of a hangover? 0 05/05/2024 CAGE Questionnaire Score 0 024 Utilities Answer Date Recorded In the past 12 months has th [employer] electric, gas, oil, or water company threatened [...] or (1 - 1-dose 75+ series) 2025 [id number] Vaccine (4 - 2024- season) 2025 10/08/2021, 01/16/2021, 12/24/2020 [facility]-Influenza Vaccine (#1) 2025 [facility]-Depression Screening 12/03/2025 12/03/2024, 0212/2024 [facility]-DTaP,Tdap,and Td Vaccines (3 - Td or Tdap) 03/17/2033 03/17/2023, 01/19/2019 [facility]-Hepatitis C Screening Completed 05/03/2024 [facility]-Obesity Intervention Completed 025, 05/03/2024, 12/19/2023, Additional history exists HPV Vaccines (No Doses Required) Completed [facility]-HIB Vaccines Aged Out No longer e [...] ORDERABLES Final Result [facility] [address] [place] [address] from Last 3 Months or Most Recently Relevant to Health Maintenance Insurance MEDICARE [facility] Advance Directives Documents on File Type Date Recorded Patient Resident Care Coordinator Expl anation Advance Directives and Living Will 05/04/2024 2:43 PM patient does not hav e an AD * Full Code (Latest Code Status on File) Date Activated Date Inactivated Comments 05/03/2024 10:21 PM 05/05/2024 2:20 PM Question Answer Comments Patient has decision-making capacity? Yes Care Teams Practice Consultant Relationship Specialty Start Date End Date Jesus Shea MD [facility] [address] PCP - General 03/13/21 Jessica Perlaes DO [address] [facility] [address] [place] [address] Resident Neurology 06/16/21
--- OUTSIDE RECORDS SUMMARY | 2025-10-29 09:36 | XMS_ITS | Encounter Summary ---
Author Organization [place] [address] Care Team Providers Care Picker And Sorter Load And Unload Name Role Phone Unavailable Primary Care Provider Unavailabl e Encounter Details Date Type Department Care Team (Late st Contact Info) Description 01/07/2023 Orders Only [facility] [place] [id number] Barbara Bess MD [address] [place] [phone] Social History Tobacco Use Types Packs/Day Years [...] EDT Requesting Provider: GIOVANNA Chaney Specimen = [id number] us Barbara Bess MD PATHOLOGY ORDERABLES Final Resul t Performing Organization Address City/State/[facility] Co de Phone Number [facility] [address] [place] [address] documented in this encounter Visit Diagnoses Not on filedocumented in this encounter
--- OUTSIDE RECORDS SUMMARY | 2025-10-29 09:36 | XMS_ITS | Encounter Summary ---
Author Organization Healthcare Address [address] [place] [address] Care Team Providers Care Elementary Supervisor Name Role Phone Jesus Shea MD Primary Care Provider [phone] Jessica Perales DO Unavailable [phone] Encounter Details Date Type Department Care Team (Late st Contact Info) Description 11/05/2024 Orders Only [place] [facility] [address] [place] [address] [place], DO [address] [place] [id number] Neuropathy Social History Tobacco Use Types Packs/Day [...] in a assisted (including now)? No 05/04/2024 CAGE ASSESSMENT Answer [...] drink first t vane in the morning (EYE-PAYROLL ADMINISTRATOR) to steady your nerves or to get [...] documented as of this encounter Care Teams Elementary Supervisor Relationship Specialty Start Date End Date Jesus Shea MD [facility] [address] PCP - General 03/13/21 Jessica Perales DO [address] [facility] [address] [place] [address] Resident Neurology 06/16/21 documented as of this encounter
--- OUTSIDE RECORDS SUMMARY | 2025-10-29 09:36 | XMS_ITS | Encounter Summary ---
Author Organization Healthcare Address [address] [place] [address] Care Team Providers Care Sports Medicine Specialist Name Role Phone Jesus Shea MD Primary Care Provider [phone] Jessica Perales DO Unavailable [phone] Encounter Details Date Type Department Care Team (Late st Contact Info) Description 12/31/2024 Lab Requisition [facility] [address] [place] [address] Valdo Carrillo, CARLOS [address] [place] [address] Encounter for general adult medical examination without [...] drink first t vane in the morning (EYE-FERRYBOAT PILOT) to steady your nerves or to get [...] LAB HEMATOLOGY METHOD 01/01/2025 2:08 PM EST [facility] Specimen Source, Body Fluid LAB HEMATOLOGY METHOD 01/01/2025 2:08 PM EST [facility] Clinical Diagnosis, Body Fluid Joint fluid. Neuropathy. History of plasma cell neoplasm and Parkinson's LAB HEMATOLOGY METHOD 01/01/2025 2:08 PM EST [facility] Interpretation , Body Fluid No evidence of malignancy; acute inflammatory cells. See comment A resident was involved in the service. I attest I examined the relevant preparations for the specimens and confirmed the diagnosis or interpretation. 01/01/2025 2:08 PM EST [facility] Pathologist Signature, Body Fluid 01/01/2025 2:08 PM EST [facility] Comment:Reviewed by: Prashanth Montiel MD LAB CP ASR DISCLAIMER Yes 01/01/2025 2:08 PM EST [facility] Joint Fluid 12/31/2024 3:15 PM EST 12/31/2024 6:01 PM EST Narrative [facility] - 01/01/2025 2:08 PM EST Correlation with microbiology studies is suggested. us Valdo GONZALEZ LAB BODY FLUIDS AND STOOLS ORDERABLES Final Result [facility] [address] [place] [address] * (ABNORMAL) Body Fluid Cell Count w/ Diff (12/31/2024 3:15 PM EST) Color, Body fluid Yellow LAB HEMATOLOGY METHOD 12/31/2024 8:00 PM [facility] Appearance, Body fluid Cloudy(A) LAB HEMATOLOGY METHOD 12/31/2024 8:00 PM [facility] Volume, Body fluid 2.5 cc LAB HEMATOLOGY METHOD 12/31/2024 8:00 PM [facility] Fluid Container Specimen received in EDTA tube LAB HEMATOLOGY METHOD 12/31/2024 8:00 PM [facility] Red Blood Cell Count, Body fluid 5,000 uL LAB HEMATOLOGY METHOD 12/31/2024 8:00 PM [facility] Total Nucleated Cell Count, Body fluid 44,000 uL LAB HEMATOLOGY METHOD 12/31/2024 8:00 PM [facility] Neutrophils %, Body fluid 95 % LAB HEMATOLOGY METHOD 12/31/2024 8:00 PM [facility] Lymphocytes %, Body fluid 1 % LAB HEMATOLOGY METHOD 12/31/2024 8:00 PM [facility] Monocytes/Macro phages %, Body fluid 4 % LAB HEMATOLOGY METHOD 12/31/2024 8:00 PM [facility] Eosinophils %, Body fluid 0 % LAB HEMATOLOGY METHOD 12/31/2024 8:00 PM [facility] Lining/Mesothel ial Cells %, Body fluid 0 % LAB HEMATOLOGY METHOD 12/31/2024 8:00 PM [facility] Neutrophils Absolute (PMN), Body fluid 41,800 uL LAB HEMATOLOGY METHOD 12/31/2024 8:00 PM [facility] Lymphocytes Absolute, Body fluid 440 uL LAB HEMATOLOGY METHOD 12/31/2024 8:00 PM [facility] Monocytes/Macro phages Absolute, Body fluid 1,760 uL LAB HEMATOLOGY METHOD 12/31/2024 8:00 PM [facility] Eosinophils Absolute, Body fluid 0 uL LAB HEMATOLOGY METHOD 12/31/2024 8:00 PM [facility] Basophils Absolute, Body fluid 0 uL LAB HEMATOLOGY METHOD 12/31/2024 8:00 PM [facility] Lining/Mesothel ial Cells Absolute, Body fluid 0 uL LAB HEMATOLOGY METHOD 12/31/2024 8:00 PM EST [facility] Comment, Body fluid None LAB HEMATOLOGY METHOD 12/31/2024 8:00 PM EST [facility] Comment:This is an appended report. These results have been appended to a previously preliminary verified report. Basophils %, Body fluid 0 % LAB HEMATOLOGY METHOD 12/31/2024 8:00 PM EST [facility] Joint Fluid 12/31/2024 3:15 PM EST 12/31/2024 6:01 PM EST Valdo GONZALEZ LAB BODY FLUIDS AN D STOOLS ORDERABLES NO SPECIMEN TYPE/SOURCE Final Result Performing Organization Address [facility] Co de Phone Number [facility] [address] [place] [address] * (ABNORMAL) Synovial fluid, crystal (12/31/2024 3:15 PM EST) Crystals, Joint Fluid Calcium Pyrophosphate Crystals Present(A) No Crystals Present 12/31/2024 11:06 PM EST [facility] Joint Fluid 12/31/2024 3:15 PM EST 12/31/2024 6:01 PM EST Narrative [facility] - 12/31/2024 11:06 PM EST Under compensated polarized light microscopy rhomboidal positively birefringent crystals are seen consistent with Calcium Pyrophosphate. The presence of steroid crystals may result in a false positive. Correlate results with recent history up to 2 months of steroid injection. Valdo GONZALEZ LAB BODY FLUIDS AND STOOLS ORDERABLES Final Result Performing Organization Address [facility] Co de Phone Number [facility] [address] [place] [address] documented in this encounter Visit Diagnoses Diagnosis [...] documented as of this encounter Care Teams Sports Medicine Specialist Relationship Specialty Start Date End Date Jesus Shea MD [facility] [address] PCP - General 03/13/21 Jessica Perales DO [address] [facility] [address] [place] [address] Resident Neurology 06/16/21 documented as of this encounter
--- OUTSIDE RECORDS SUMMARY | 2025-10-29 09:36 | XMS_ITS | Encounter Summary ---
Author Organization [place] [address] Care Team Providers Care Cafeteria Team Leader Name Role Phone Unavailable Primary Care Provider Unavailabl e Encounter Details Date Type Department Care Team (Late st Contact Info) Description 01/07/2023 Orders Only [facility] [place] [phone] Barbara Bess MD [address] [place] [phone] Social History Tobacco Use Types Packs/Day Years [...] Procedure Name Priority Date/Time Associated Diagnosis Comments Snapd App STANDARD LEUKEMIA/LYMPHOMA PANEL Routine 01/07/2023 9:45 AM EST documented in this encounter Results * NEOGENOMICS STANDARD LEUKEMIA/LYMPHOMA PANEL (01/07/2023 9:45 AM EST) 01/07/2023 9:45 AM EST Narrative [facility] - 01/10/2023 3:22 PM EDT Requesting Provider: GIOVANNA Chaney Specimen = [id number] us Barbara Bess MD PATHOLOGY ORDERABLES Final Resul t Performing Organization Address City/State/[facility] Co de Phone Number [facility] [address] [place] [address] documented in this encounter Visit Diagnoses Not on filedocumented in this encounter
--- OUTSIDE RECORDS SUMMARY | 2025-10-29 09:36 | XMS_ITS | Encounter Summary ---
Author Organization Healthcare Address [address] [place] [address] Care Team Providers Care Creative Technologist Name Role Phone Jesus Shea MD Primary Care Provider Jessica Perales DO Unavailable [phone] Encounter Details Date Type Department Care Team (Late st Contact Info) Description 09/17/2021 Lab Requisition [facility] [address] [place] [address] Mar Diaz MD [address] [facility] [address] [place] [phone] Decreased white blood cell count, unspecified Social [...] AM EST) Case Report Bone Marrow Case: [id number] Authorizing Provider: Mar Diaz MD Collected: 09/17/2021 0940 Ordering Location: [facility] Lab Received: 09/17/2021 0940 Pathologist: Jen Tesfaye MD Specimen: Bone Marrow Biopsy, [id number] 09/21/2021 1:36 PM EST LAB Final Diagnosis PERIPHERAL BLOOD AND BONE MARROW, POSTERIOR ILIAC CREST (PERIPHERAL SMEAR, ASPIRATE SMEAR, AND CORE BIOPSY): - KAPPA RESECTED PLASMA CELL NEOPLASM, 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 Correlation with complete radiologic and laboratory studies is required for final diagnosis. 09/21/2021 1:36 PM EST LAB Clinical Information D72.819 - Decreased white blood cell count, unspecified [ICD-10-CM] 09/21/2021 1:36 PM EST LAB CBC and Differential PERIPHERAL BLOOD: No results found for requested labs within last 200 hours. DIFFERENTIAL:No results found for requested labs within last 200 hours. Leukopenia with mild lymphopenia and mild neutropenia.Macro cytic, normocytic red blood cells without anemia. Adequate platelets.no circulating plasma cells. 09/21/2021 1:36 PM EST LAB Bone Marrow Differential BONE MARROW DIFFERENTIAL: 200 cells Normal Patient Neutrophils 15-50 12 Metamyelocytes 4-19 19 Myelocytes 1-18 23 Promyelocytes 1-8 0 Blasts 0-2 0 Monocytes 0-5 1 Erythroid 16-38 26 Lymphocytes 3-24 5 Eosinophils 0-6 7 Basophils 0-2 1 Plasma cells 0-4 6 Other 09/21/2021 1:36 PM EST LAB Bone Marrow Aspirate and Biopsy The bone marrow aspirate smears show several cellular marrow particles with maturing trilineage hematopoiesis. Myeloid precursors are maturing . Blasts are not increased. 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 Plasma cells are increased and account for [...] Gain of 11q/CCND1 09/21/2021 1:36 PM EST [facility] Gross Description A. [id number] Received along with a corresponding pathology report from [facility] Laboratory are 19 slide(s) labeled outside case: [id number] collected on 01/08/2021. 09/21/2021 1:36 PM EST LAB Note: A resident was involved in the service. I attest I examined the relevant preparations for the specimens and confirmed the diagnosis or interpretation. 09/21/2021 1:36 PM EST LAB Bone Marrow Specimen from bone marrow obtained by biopsy / Unknown 09/17/2021 9:40 AM EST 09/17/2021 9:40 AM EST us Mar Diaz MD LAB PATHOLOGY ORDERABLES Rosa godinez [facility] [address] [place] [address] documented in this encounter Visit Diagnoses Diagnosis Decreased white blood cell count, unspecified documented in this encounter Additional Health Concerns Assessment Noted Time A fall risk assessment has been complete d for the patient 2021 1:47 PM EDT documented as of this encounter Care Teams Creative Technologist Relationship Specialty Start Date End Date Jesus Shea MD [facility] [address] PCP - General 03/13/21 Jessica Perales DO [address] [facility] [address] [place] [address] Resident Neurology 06/16/21 documented as of this encounter
--- OUTSIDE RECORDS SUMMARY | 2025-10-29 09:36 | XMS_ITS | Clinical Summary ---
Author Organization [facility] Address [address] [place] [address] Care Team Providers Care U.S. Revenue Officer Name Role Phone Kai Shea MD [...] & B [employer] Care Teams U.S. Revenue Officer Relationship Specialty Start Date End Date Kai Shea MD [address] [place] [facility] [address] [facility] [address] [place]NY BRYAN [address] PCP - General Family Medicine 04/05/23
--- OUTSIDE RECORDS SUMMARY | 2025-10-29 09:36 | XMS_ITS | Clinical Summary ---
Author Organization [facility] Address [address] [facility] [address] [place] [address] Phone Care Team Providers Care Energy Rater Name Role Phone Unavailable Primary Care Provider [...] MEDICARE [place] PART A AND B FEDERAL [facility] FEDERAL /[place] [address] [place]ARE [place] PART A AND B AN[place] FEDERAL
--- OUTSIDE RECORDS SUMMARY | 2025-10-29 09:36 | XMS_ITS | Encounter Summary ---
Author Organization Healthcare Address [address] [place] [address] Care Team Providers Care Poultry Farm Laborer Name Role Phone Jesus Shea MD Primary Care Provider [phone] Jessica Perales DO Unavailable [phone] Encounter Details Date Type Department Care Team (Late st Contact Info) Description 01/15/2025 Lab Requisition [facility] [address] [place] [address] Sara Alegre [address] [place] [address] [place] [address] Encounter for general adult medical examination without [...] drink first t vane in the morning (EYE-HOPPER FEEDER) to steady your nerves or to get [...] LAB HEMATOLOGY METHOD 01/16/2025 4:15 PM EDT [facility] Specimen Source, Body Fluid LAB HEMATOLOGY METHOD 01/16/2025 4:15 PM EDT [facility] Clinical Diagnosis, Body Fluid Joint effusion LAB HEMATOLOGY METHOD 01/16/2025 4:15 PM EDT [facility] Interpretation , Body Fluid Acute inflammatory cells; correlate with Gram stain/culture and/or crystal analysis. A resident was involved in the service. I attest I examined the relevant preparations for the specimens and confirmed the diagnosis or interpretation. 01/16/2025 4:15 PM EDT [facility] Pathologist Signature, Body Fluid 01/16/2025 4:15 PM EDT [facility] Comment:Reviewed by: Isabel Donohue MD LAB CP ASR DISCLAIMER Yes 01/16/2025 4:15 PM EDT [facility] Joint Fluid 01/15/2025 12:1 0 PM EDT 01/15/2025 2:41 PM EDT us Sara Codey LAB BODY FLUIDS AND STOOLS ORDER MARYLIN Final Result [facility] [address] [place] [address] * (ABNORMAL) Joint Fluid Crystals (01/15/2025 12:10 PM EDT) Crystals, Joint Fluid Calcium Pyrophosphate Crystals Present(A) No Crystals Present 01/15/2025 7:55 PM EDT [facility] Joint Fluid 01/15/2025 12:1 0 PM EDT 01/15/2025 2:41 PM EDT Narrative [facility] - 01/15/2025 7:55 PM EDT Under compensated polarized light microscopy rhomboidal positively birefringent crystals are seen consistent with Calcium Pyrophosphate. The presence of steroid crystals may result in a false positive. Correlate results with recent history up to 2 months of steroid injection. Sara Guy LAB BODY FLUIDS AND STOOLS ORDER MARYLIN Final Result [facility] [address] [place] [address] * (ABNORMAL) Body Fluid Cell Count w/ Diff (01/15/2025 12:10 PM EDT) Color, Body fluid Red LAB HEMATOLOGY METHOD 01/15/2025 7:53 PM EDT [facility] Appearance, Body fluid Cloudy(A) LAB HEMATOLOGY METHOD 01/15/2025 7:53 PM EDT [facility] Volume, Body fluid 4.0 cc LAB HEMATOLOGY METHOD 01/15/2025 7:53 PM EDT [facility] Fluid Container Specimen received in Sodium Heparin LAB HEMATOLOGY METHOD 01/15/2025 7:53 PM EDT [facility] Red Blood Cell Count, Body fluid 45,500 uL LAB HEMATOLOGY METHOD 01/15/2025 7:53 PM EDT [facility] Comment:Clumps present, coun t may be affected. Test performed by manual method. Total Nucleated Cell Count, Body fluid 75,000 uL LAB HEMATOLOGY METHOD 01/15/2025 7:53 PM EDT [facility] Comment:Clumps present, coun t may be affected. Test performed by manual method. Neutrophils %, Body fluid 93 % LAB HEMATOLOGY METHOD 01/15/2025 7:53 PM EDT [facility] Lymphocytes %, Body fluid 0 % LAB HEMATOLOGY METHOD 01/15/2025 7:53 PM EDT [facility] Monocytes/Macro phages %, Body fluid 7 % LAB HEMATOLOGY METHOD 01/15/2025 7:53 PM EDT [facility] Eosinophils %, Body fluid 0 % LAB HEMATOLOGY METHOD 01/15/2025 7:53 PM EDT [facility] Lining/Mesothel ial Cells %, Body fluid 0 % LAB HEMATOLOGY METHOD 01/15/2025 7:53 PM EDT [facility] Neutrophils Absolute (PMN), Body fluid 69,750 uL LAB HEMATOLOGY METHOD 01/15/2025 7:53 PM EDT [facility] Lymphocytes Absolute, Body fluid 0 uL LAB HEMATOLOGY METHOD 01/15/2025 7:53 PM EDT [facility] Monocytes/Macro phages Absolute, Body fluid 5,250 uL LAB HEMATOLOGY METHOD 01/15/2025 7:53 PM EDT [facility] Eosinophils Absolute, Body fluid 0 uL LAB HEMATOLOGY METHOD 01/15/2025 7:53 PM EDT [facility] Basophils Absolute, Body fluid 0 uL LAB HEMATOLOGY METHOD 01/15/2025 7:53 PM EDT [facility] Lining/Mesothel ial Cells Absolute, Body fluid 0 uL LAB HEMATOLOGY METHOD 01/15/2025 7:53 PM EDT [facility] Comment, Body fluid None LAB HEMATOLOGY METHOD 01/15/2025 7:53 PM EDT [facility] Comment:This is an appended report. These results have been appended to a previously preliminary verified report. Basophils %, Body fluid 0 % LAB HEMATOLOGY METHOD 01/15/2025 7:53 PM EDT [facility] Joint Fluid 01/15/2025 12:1 0 PM EDT 01/15/2025 2:41 PM EDT Sara Alegre LAB BODY FLUIDS AND STOOLS ORDERABLES NO SPECIMEN TYPE/SOURCE Final Result [facility] [address] [place] [address] documented in this encounter Visit Diagnoses Diagnosis [...] documented as of this encounter Care Teams Poultry Farm Laborer Relationship Specialty Start Date End Date Jesus Shea MD [facility] [address] PCP - General 03/13/21 Jessica Perales DO [address] [place] [address] Resident Neurology 06/16/21 documented as of this encounter
--- OUTSIDE RECORDS SUMMARY | 2025-10-29 09:36 | XMS_ITS | Encounter Summary ---
Author Organization Healthcare Address [address] [place] [address] Care Team Providers Care Branch Chief Name Role Phone Jesus Shea MD Primary Care Provider [phone] Jessica Perales DO Unavailable [phone] Encounter Details Date Type Department Care Team (Late st Contact Info) Description 12/31/2024 Lab Requisition [facility] [address] [place] [address] Valdo Carrillo, CARLOS [address] [place] [address] [place] [address] Encounter for general adult medical examination without [...] drink first t vane in the morning (EYE-BLOCK PLACER) to steady your nerves or to get [...] Culture Light Growth 01/06/2025 10:47 AM EDT [facility] Culture Staphylococcus epidermidis(A) BASSAM 01/06/2025 10:47 AM EDT [facility] Comment: This isolate has been identified using the FDA Approved [employer] [place] System The organism value for this result has been updated. These results have been appended to the previously preliminary verified report. Edited result: Previously reported as Gram positive cocci on 01/02/2025 at 0908 EST. Gram Stain Result Numerous Polymorphonuclear leukocytes(A) 01/06/2025 10:47 AM EDT [facility] Gram Stain Result Rare Gram positive cocci in pairs(A) 01/06/2025 10:47 AM EDT [facility] Joint Fluid Synovial fluid specimen [...] LAB MICROBIOLOGY - GENERAL ORDERABLES Final Result [facility] [address] [place] [address] documented in this encounter Visit Diagnoses Diagnosis [...] documented as of this encounter Care Teams Branch Chief Relationship Specialty Start Date End Date Jesus Shea MD [facility] [address] PCP - General 03/13/21 Jessica Perales DO [address] [facility] [address] [place] [address] Resident Neurology 06/16/21 documented as of this encounter
[2025-10-29 09:46] VITALS: BP 130/77; PULSE 59; RESP 18; TEMP 36.4; O2SAT 98
[2025-10-29] MEDS: DENOSUMAB 120MG/1.7ML VIAL 120 MG SUBCUT (09:46)
[2025-10-29 10:09] LABS: Hematocrit 41.4 % (42.0-52.0); Hemoglobin 12.9 g/dL (14.1-18.0); Immature Granulocytes % 0.4 %; Mean Corpuscular HGB Conc 31.2 g/dL (31.8-35.4); Mean Corpuscular Hemoglobin 29.7 pg (27.0-31.2); Mean Corpuscular Volume 95.2 fl (80-94); Nucleated Red Blood Cells % 0 %; Platelet Count 105 K/mm3 (142-424); Red Blood Count 4.35 M/mm3 (4.60-6.20); Red Cell Distribution Width-SD 60.2 fL; White Blood Count 2.9 K/mm3 (4.8-10.8)
[2025-10-29 10:20] LABS: Albumin Level 4.3 g/dl (3.5-5.0); Chloride 108 mmol/L (98-107); Potassium 4.7 mmoL/L (3.5-5.1); Sodium 143 mmol/L (136-145)
[2025-10-29 10:23] LABS: Alanine Aminotransferase 45 U/L (12-78); Albumin/Globulin Ratio 1.5 (1.1-1.8); Alkaline Phosphatase 76 U/L (38-126); Anion Gap 10.7 mEq/L (5-15); Aspartate Amino Transferase 41 U/L (17-59); Bilirubin,Total 0.5 mg/dl (0.2-1.3); Blood Urea Nitrogen 26 mg/dl (9-20); Calcium 9.2 mg/dl (8.4-10.2); Carbon Dioxide 29 mmol/L (22.0-30.0); Creatinine,Serum 1.10 mg/dl (0.66-1.25); Estimated Glomerular Filt Rate 65 ml/min (>60); GFR (African American) 79 ML/MIN (>60); Globulin 2.9 g/dL (1.3-3.2); Glucose 150 mg/dl (74-100); Total Protein,Serum 7.2 g/dl (6.3-8.2)
[2025-10-29 12:06] LABS: RBC Morphology Normal; Total Cells Counted 100
[2025-10-30 13:39] LABS: Albumin 3.4 g/dL (2.9-4.4); Alpha-1-Globulin 0.2 g/dL (0.0-0.4); Alpha-2-Globulin 0.5 g/dL (0.4-1.0); Gamma Globulin 1.3 g/dL (0.4-1.8)
[2025-11-01 15:53] LABS: Immunoglobulin A, Qn 63 mg/dL (61-437); Immunoglobulin G, Qn 1393 mg/dL (603-1613); Immunoglobulin M, Qn 85 mg/dL (15-143)
== END 2025-10-29 23:59 | disposition home or self-care (01) ==
LOC: INF 09:33
PROVIDERS: PCP Family Medicine; Visit Provider Internal Medicine Medical Oncology
DX: D47.2 Monoclonal gammopathy (principal)
CPT/HCPCS: 36415; 80053; 82784; 83521; 84155; 84165; 85007; 85025; 85027; 86334; 96372; J0897